=== PATIENT | female | born 1935 | race Caucasian/White ===

== ENCOUNTER 2021-08-26 09:47 | Outpatient (CLI) | payer MEDICARE, OTHER, SELFPAY | END 2021-08-26 09:48 | disposition home or self-care (01) | LOC: WOUND 09:55 | PROVIDERS: Visit Provider Nurse Practitioner Family | DX: I96 Gangrene, not elsewhere classified (principal); S31.000A Unspecified open wound of lower back and pelvis without penetration into retroperitoneum, initial encounter; X58.XXXA Exposure to other specified factors, initial encounter | CPT/HCPCS: 11042; G0463 ==

== ENCOUNTER 2021-09-02 09:38 | Outpatient (CLI) | payer MEDICARE, OTHER, SELFPAY | END 2021-09-02 09:39 | disposition home or self-care (01) | LOC: WOUND 09:40 | PROVIDERS: PCP Registered Nurse; Visit Provider Nurse Practitioner Family | DX: X58.XXXA Exposure to other specified factors, initial encounter; S31.020A Laceration with foreign body of lower back and pelvis without penetration into retroperitoneum, initial encounter | CPT/HCPCS: 11042 ==

== ENCOUNTER 2021-09-09 13:05 | Outpatient (CLI) | payer MEDICARE, OTHER, SELFPAY | END 2021-09-09 13:06 | disposition home or self-care (01) | LOC: WOUND 13:06 | PROVIDERS: PCP Registered Nurse; Visit Provider Nurse Practitioner Family | DX: X58.XXXA Exposure to other specified factors, initial encounter; S31.020A Laceration with foreign body of lower back and pelvis without penetration into retroperitoneum, initial encounter | CPT/HCPCS: 11042 ==

== ENCOUNTER → 2021-09-16 08:24 | Outpatient (BNVA) | payer MEDICARE, OTHER, SELFPAY | PROVIDERS: PCP Registered Nurse; Visit Provider Internal Medicine | DX: M06.9 Rheumatoid arthritis, unspecified (principal); M41.20 Other idiopathic scoliosis, site unspecified; M81.0 Age-related osteoporosis without current pathological fracture; Z11.59 Encounter for screening for other viral diseases; Z85.828 Personal history of other malignant neoplasm of skin | CPT/HCPCS: 99204 ==

== ENCOUNTER 2021-09-16 10:11 | Outpatient (CLI) | payer MEDICARE, OTHER, SELFPAY | END 2021-09-16 10:12 | disposition home or self-care (01) | LOC: WOUND 10:12 | PROVIDERS: PCP Registered Nurse; Visit Provider Emergency Medicine | DX: I96 Gangrene, not elsewhere classified (principal); S31.000A Unspecified open wound of lower back and pelvis without penetration into retroperitoneum, initial encounter; W19.XXXA Unspecified fall, initial encounter | CPT/HCPCS: 11042 ==

== ENCOUNTER → 2021-09-22 11:24 | Outpatient (BNVA) | payer MEDICARE, OTHER, SELFPAY | PROVIDERS: PCP Registered Nurse; Visit Provider Social Worker | DX: F43.12 Post-traumatic stress disorder, chronic (principal) | CPT/HCPCS: 90834 ==

== ENCOUNTER 2021-09-22 13:24 | Outpatient (CLI) | payer MEDICARE, OTHER, SELFPAY ==
[2021-09-22 14:05] LABS: Basophils % 0.4 %; Eosinophils # 0.3 10^3/uL (0.0-0.8); Eosinophils % 2.8 %; Hematocrit 37.4 % (37.0-47.0); Hemoglobin 11.7 g/dL (11.5-15.3); Lymphocytes # 3.3 10^3/uL (0.8-4.8); Lymphocytes % 37.3 %; Mean Corpuscular HGB Conc 31.3 g/dL (30.0-36.0); Mean Corpuscular Hemoglobin 32.4 pg (28.0-34.0); Mean Corpuscular Volume 103.6 fl (81-99); Mean Platelet Volume 9.8 fL (7.4-10.4); Monocytes # 0.4 10^3/uL (0.2-0.9); Monocytes % 3.9 %; Neutrophils # 4.92 10^3/uL (1.8-7.7); Neutrophils % 55.3 %; Nucleated Red Blood Cells % 0 %; Platelet Count 291 10^3/cmm (130-400); Red Blood Count 3.61 10^6/uL (4.1-5.3); Red Cell Distribution Width 16.4 % (12.1-15.1); White Blood Count 8.9 10^3/uL (4.0-10.0)
[2021-09-22 14:28] LABS: Alanine Aminotransferase 12 U/L (0-33); Albumin Level 4.1 g/dL (3.5-5.2); Alkaline Phosphatase 67 IU/L (35-105); Anion Gap 18.9 (5-19); Aspartate Amino Transferase 18 U/L (0-32); Blood Urea Nitrogen 22 mg/dL (8-23); C Reactive Protein 1.1 mg/L (0.0-4.9); Calcium 8.6 mg/dL (8.5-10.5); Carbon Dioxide 20 mmol/L (22-29); Chloride 102 mmol/L (98-107); Globulin 3.4 g/dL (1.3-4.6); Glucose 90 mg/dL (65-115); Osmolality Calculated 287 mOsm/kg (285-295); Potassium 3.9 mmol/L (3.5-5.1); Sodium 137 mmol/L (136-145); Total Bilirubin 0.4 mg/dL (0.15-1.2); Total Protein 7.5 g/dL (6.6-8.7)
[2021-09-22 14:44] LABS: 25 Hydroxy Vitamin D 60 ng/mL (30-100)
[2021-09-22 14:58] LABS: Hepatitis B Core AB, Total Non-Reactive (Nonreactive); Hepatitis B Surface Antigen Non-Reactive (Nonreactive); Hepatitis C Virus Antibody Non-Reactive (Nonreactive)
[2021-09-22 15:21] LABS: Erythrocyte Sedimentation Rate 41 mm/hr (0-15)
[2021-09-25 11:13] LABS: Quantiferon Mitogen 8.48 IU/mL; Quantiferon Nil 0.58 IU/mL; Quantiferon Plus TB1 <0.00 IU/mL; Quantiferon Plus TB2 0.01 IU/mL; Quantiferon TB Gold NEGATIVE (NEGATIVE)
== END 2021-09-22 13:25 | disposition home or self-care (01) ==
LOC: LAB 13:30
PROVIDERS: PCP Registered Nurse; Visit Provider Internal Medicine
DX: M06.9 Rheumatoid arthritis, unspecified (principal); Z79.899 Other long term (current) drug therapy; Z11.1 Encounter for screening for respiratory tuberculosis; Z11.59 Encounter for screening for other viral diseases
CPT/HCPCS: 36415; 80053; 82306; 85025; 85651; 86140; 86480; 86704; 86803; 87340

== ENCOUNTER 2021-09-30 08:50 | Outpatient (CLI) | payer MEDICARE, OTHER, SELFPAY | END 2021-09-30 08:51 | disposition home or self-care (01) | LOC: WOUND 08:51 | PROVIDERS: PCP Registered Nurse; Visit Provider Emergency Medicine | DX: I96 Gangrene, not elsewhere classified (principal); S31.020A Laceration with foreign body of lower back and pelvis without penetration into retroperitoneum, initial encounter; X58.XXXA Exposure to other specified factors, initial encounter | CPT/HCPCS: 11042 ==

== ENCOUNTER 2021-10-14 08:48 | Outpatient (CLI) | payer MEDICARE, OTHER, SELFPAY | END 2021-10-14 08:49 | disposition home or self-care (01) | LOC: WOUND 08:49 | PROVIDERS: PCP Registered Nurse; Visit Provider Emergency Medicine | DX: M06.9 Rheumatoid arthritis, unspecified (principal); M47.816 Spondylosis without myelopathy or radiculopathy, lumbar region; Z79.899 Other long term (current) drug therapy; I96 Gangrene, not elsewhere classified; L89.893 Pressure ulcer of other site, stage 3 | CPT/HCPCS: 11042; 99214 ==

== ENCOUNTER → 2021-11-06 14:31 | Outpatient (BNVA) | payer MEDICARE, OTHER, SELFPAY | PROVIDERS: PCP Registered Nurse; Visit Provider Registered Nurse | DX: I48.91 Unspecified atrial fibrillation (principal); M81.0 Age-related osteoporosis without current pathological fracture; M06.9 Rheumatoid arthritis, unspecified; I48.11 Longstanding persistent atrial fibrillation | CPT/HCPCS: 80053; 82306; 82607; 83735; 84100; 84443; 84550; 85025; 85651; 86140 ==

== ENCOUNTER → 2021-11-10 10:18 | Outpatient (BNVA) | payer MEDICARE, OTHER, SELFPAY | PROVIDERS: PCP Registered Nurse; Visit Provider Internal Medicine Cardiovascular Disease | DX: I48.11 Longstanding persistent atrial fibrillation (principal); K21.9 Gastro-esophageal reflux disease without esophagitis; E78.5 Hyperlipidemia, unspecified; I10 Essential (primary) hypertension; I25.10 Atherosclerotic heart disease of native coronary artery without angina pectoris | CPT/HCPCS: 77077; 99204 ==

== ENCOUNTER → 2021-11-20 10:29 | Outpatient (BNVA) | payer MEDICARE, OTHER, SELFPAY | PROVIDERS: PCP Registered Nurse; Visit Provider Orthopaedic Surgery | DX: M54.6 Pain in thoracic spine (principal); M47.894 Other spondylosis, thoracic region; M81.0 Age-related osteoporosis without current pathological fracture | CPT/HCPCS: 72072; 72110 ==

== ENCOUNTER → 2021-12-10 10:40 | Outpatient (BNVA) | payer MEDICARE, OTHER, SELFPAY | PROVIDERS: PCP Registered Nurse; Visit Provider Otolaryngology | DX: J32.0 Chronic maxillary sinusitis (principal); R04.0 Epistaxis; R09.81 Nasal congestion; Z79.891 Long term (current) use of opiate analgesic | CPT/HCPCS: 99204 ==

== ENCOUNTER → 2021-12-22 10:13 | Outpatient (BNVA) | payer MEDICARE, OTHER, SELFPAY | PROVIDERS: PCP Registered Nurse; Referring Provider Registered Nurse; Visit Provider Anesthesiology Pain Medicine | DX: M47.816 Spondylosis without myelopathy or radiculopathy, lumbar region (principal); M25.512 Pain in left shoulder; M25.511 Pain in right shoulder; M19.019 Primary osteoarthritis, unspecified shoulder; M41.20 Other idiopathic scoliosis, site unspecified; M06.9 Rheumatoid arthritis, unspecified; M81.0 Age-related osteoporosis without current pathological fracture; Z79.891 Long term (current) use of opiate analgesic | CPT/HCPCS: 20610; 99205; J1030; J3490 ==

== ENCOUNTER → 2022-01-09 08:14 | Outpatient (BNVA) | payer MEDICARE, OTHER, SELFPAY | PROVIDERS: PCP Registered Nurse; Visit Provider Otolaryngology | DX: R04.0 Epistaxis (principal); R09.81 Nasal congestion; J32.0 Chronic maxillary sinusitis; H02.831 Dermatochalasis of right upper eyelid | CPT/HCPCS: 99213 ==

== ENCOUNTER → 2022-01-12 12:46 | Outpatient (BNVA) | payer MEDICARE, OTHER, SELFPAY | PROVIDERS: PCP Registered Nurse; Visit Provider Internal Medicine Cardiovascular Disease | DX: M06.9 Rheumatoid arthritis, unspecified (principal); Z79.899 Other long term (current) drug therapy; M81.0 Age-related osteoporosis without current pathological fracture; T84.84XA Pain due to internal orthopedic prosthetic devices, implants and grafts, initial encounter; Y83.8 Other surgical procedures as the cause of abnormal reaction of the patient, or of later complication, without mention of misadventure at the time of the procedure; M20.42 Other hammer toe(s) (acquired), left foot; M21.612 Bunion of left foot; I48.11 Longstanding persistent atrial fibrillation; I25.10 Atherosclerotic heart disease of native coronary artery without angina pectoris; I10 Essential (primary) hypertension; E78.5 Hyperlipidemia, unspecified; K21.9 Gastro-esophageal reflux disease without esophagitis | CPT/HCPCS: 99214; 99215 ==

== ENCOUNTER → 2022-01-22 13:43 | Outpatient (BNVA) | payer MEDICARE, OTHER, SELFPAY | PROVIDERS: PCP Registered Nurse; Visit Provider Anesthesiology Pain Medicine | DX: M47.816 Spondylosis without myelopathy or radiculopathy, lumbar region (principal); M06.9 Rheumatoid arthritis, unspecified; M81.0 Age-related osteoporosis without current pathological fracture; M41.20 Other idiopathic scoliosis, site unspecified; M79.604 Pain in right leg; M79.605 Pain in left leg; M25.511 Pain in right shoulder; M25.512 Pain in left shoulder; Z79.891 Long term (current) use of opiate analgesic | CPT/HCPCS: 99214 ==

== ENCOUNTER → 2022-02-11 09:23 | Outpatient (BNVA) | payer MEDICARE, OTHER, SELFPAY | PROVIDERS: PCP Registered Nurse; Visit Provider Internal Medicine | DX: M06.9 Rheumatoid arthritis, unspecified (principal) | CPT/HCPCS: 80053; 85025 ==

== ENCOUNTER → 2022-02-19 10:06 | Outpatient (BNVA) | payer MEDICARE, OTHER, SELFPAY | PROVIDERS: PCP Registered Nurse; Visit Provider Anesthesiology Pain Medicine | DX: M19.012 Primary osteoarthritis, left shoulder (principal); M47.816 Spondylosis without myelopathy or radiculopathy, lumbar region; M06.9 Rheumatoid arthritis, unspecified; M81.0 Age-related osteoporosis without current pathological fracture; M41.20 Other idiopathic scoliosis, site unspecified; Z79.891 Long term (current) use of opiate analgesic | CPT/HCPCS: 20610; 99214; J1030 ==

== ENCOUNTER 2022-02-27 07:38 | Day surgery (SDC) | payer MEDICARE, OTHER, SELFPAY ==
--- NOTE | 2022-02-27 06:05 | W.PM.OPSUD ---
Surgery/Procedure H&P Update DATE OF PROCEDURE: February 27, 2022 DATE H&P PERFORMED: 02/27/22 CHANGES TO PREVIOUS DOCUMENTATION: None PRIMARY INDICATION FOR PROCEDURE: Painful retained hardware right foot PLANNED PROCEDURE: Operation Date: 02/27/22 09:20 Proposed Procedures p Deep hardware removal right foot 50093,T84.84XA(Right) - Ventura Osullivan DPM
--- NOTE | 2022-02-27 06:06 | P.HP_ITS ---
Providers/Chief Complaint Primary Care Provider: PARISH Medel History of Present Illness 86 year old female patient presenting to clinic for evaluation of bilateral foot pain.? Patient states that she has complaints about both feet.? She states that in the right foot she has old hardware from a past surgery that causes her pain.? In her left foot her third toe draws up and causes a sore on top.? Patient states that her discomfort has caused her issues for years.? Patient also has complaints of thick elongated nails that are hard for her to trim herself due to back pain.? She and her sister temperature changes to her feet, decreased sensation, numbness, tingling and [id number]-astpjon.? Patient denies any subjective nausea, vomiting, fever, chills, shortness of breath or chest pain. Review of Systems General: Reports: 10 or more systems reviewed and unremarkable except in HPI and below Const: Denies: fever(s) or chills Eyes: Denies: change in vision Card: Denies: chest pain or palpitations Resp: Denies: dyspnea or productive cough GI: Denies: abdominal pain, nausea or vomiting : Denies: flank pain Musc: Reports: extremity pain, joint pain, joint stiffness, limited range of motion and deformity Skin/Breast: Reports: skin tenderness; Denies: rash Neuro: Reports: difficulty walking; Denies: numbness in extremities, sensory changes or frequent falls Psych: Denies: suicidal ideation Drew/Lymph: Denies: easy bruising Medications/Allergies Home Medications Medication Instructions Recorded Confirmed Last Taken Type ascorbic acid (vitamin C) 500 mg 500 mg PO DAILY 09/01/21 02/26/22 Unknown History capsule calcium carbonate 600 mg calcium 600 mg PO DAILY 09/01/21 02/26/22 Unknown History (1,500 mg) tablet cholecalciferol (vitamin D3) 50 50 mcg PO DAILY 09/01/21 02/26/22 Unknown History mcg (2,000 unit) capsule krill 1,000 mg-omega-3 170 mg-dha 1 cap PO BID 09/01/21 02/26/22 Unknown History 50 mg-epa 80 vy-cdniiv-qhiux capsule (krill oil) levothyroxine 88 mcg capsule 88 mcg PO DAILY 09/01/21 02/26/22 Unknown History acetaminophen 325 mg capsule 650 mg PO Q8H PRN cap 09/16/21 02/26/22 Unknown History potassium gluconate 595 mg (99 mg) 595 mg PO DAILY 09/16/21 02/26/22 Unknown History tablet apixaban 2.5 mg tablet (Eliquis) 2.5 mg PO BID #180 tab 11/10/21 02/26/22 Unknown Rx furosemide 20 mg tablet 10 mg PO QAM #45 tab 11/10/21 02/26/22 Unknown Rx prednisone 5 mg tablet 5 mg PO DAILY PRN 11/10/21 02/26/22 Unknown History sotalol 80 mg tablet 40 mg PO BID #90 tab 11/10/21 02/26/22 Unknown Rx Back brace #1 ea 11/20/21 02/19/22 Unknown Rx omeprazole 40 mg capsule,delayed 40 mg PO DAILY #90 cap 12/16/21 02/26/22 Unknown Rx release tramadol 50 mg tablet 50 mg PO BID PRN #60 tab 12/22/21 02/26/22 Unknown Rx methenamine hippurate 1 gram tablet 1 g PO BID #180 tab 01/06/22 02/26/22 Unknown Rx methotrexate sodium 2.5 mg tablet 10 mg PO .weekly tab 01/12/22 02/26/22 Unknown History ammonium lactate 12 % topical cream 1 applic TOPICAL DAILY #385 g 01/28/22 02/26/22 Unknown Rx evolocumab 140 mg/mL subcutaneous 140 mg SUBCUT Q14D #2 ml 02/09/22 02/26/22 Unknown Rx pen injector (Felicita Antonio) nitroglycerin 400 mcg/spray 1 spray TRANSLINGUAL Q5M PRN #4.9 g 02/09/22 02/26/22 Unknown Rx translingual folic acid 1 mg tablet 1 mg PO BID 02/26/22 02/26/22 Unknown History vitamins A,C,Y-kgid-uflxow 14,320 1 cap PO BID 02/26/22 02/26/22 Unknown History unit-226 mg-200 unit capsule (PreserVision AREDS) Allergies Allergy/AdvReac Type Severity Reaction Status Date / Time lactose Allergy Unknown Verified 02/26/22 17:16 Sulfa (Sulfonamide Allergy ADR-Vomitin Verified 02/26/22 17:16 Antibiotics) g PFSH PFSH: Medical History Afib 2020 Angina pectoris Anxiety and depression CAD (coronary artery disease) GERD (gastroesophageal reflux disease) Hyperlipidemia Hypertension Hypothyroidism Menopause Psychiatric care Recurrent urinary tract infection Rheumatoid arthritis Reported hx by pt Scoliosis Scoliosis (and kyphoscoliosis), idiopathic Surgical History History of hand surgery History of hysterectomy History of intestinal surgery History of open heart surgery 2000 History of tonsillectomy Hx of foot surgery right foot Family History Mother Diabetes Other Parkinson disease Social History Smoking and tobacco status: never smoked Alcohol intake: never Adopted: No Caregiver/support person: No Lives independently: No Household members: family service: No History of recent travel: No Sexually active: No Current gender identity: Female Dietary Habits: Caffeine: Yes Vital Signs Weight: Weight last 48 hrs Weight 120 lb Physical Exam Narrative: EXAM NARRATIVE: Patient is alert and oriented ?3 and in no acute distress.? The following is a focused bilateral lower extremity exam. VASCULAR: Dorsalis pedis diminished bilaterally, posterior tibial arteries diminished.? Capillary refill time less than 5 seconds to the distal hallux bilaterally. Calf is supple and nontender proximally and distally.? Decreased pedal hair growth bilaterally.? No pedal edema.? Dependent rubor to the bilateral forefoot. NEUROLOGICAL: Protective sensation intact 6/10 sites, tested with [place] monofilament to bilateral feet. DERMATOLOGICAL: Thin, atrophic, shiny skin to the lower extremity integument.? Absent toenail to first and second toes left and right.? Remaining toenails 3 through 5 bilaterally are elongated, thickened and discolored with subungual debris.? Cicatrix to the right foot. MUSCULOSKELETAL: Prominent hardware at the first metatarsal right foot, there is tenderness to palpation at prominent hardware of the right foot noted.? Dystrophic toenails are also painful 3 through 5 bilaterally.? Pes planus foot type bilaterally. CARDIOVASCULAR: S1, S2, normal rate, normal rhythm. Dorsalis pedis and posterior tibial arteries palpable. LUNGS: Clear to auscltation, no use of acessory muscles, no crackles or wheezes. A&P Assessment and plan (1) Right foot pain: Patient has painful retained orthopedic hardware in the right foot, screws are backing out and tenting the skin, this is a potential hazard for wound formation, makes it difficult for her to wear shoes.? She is requesting bob kilo.? Patient will be evaluated by cardiology prior to surgical intervention. Was seen by Dr. Grace STARKS 01/12/2022, is able to proceed with outpatient surgery with acceptable cardiovascular risk. Patient requesting deep hardware removal right foot. Requesting removal of 2 prominent screws that are causing sores and pain. Risks include pain, bleeding, numbness, infection, failure to extract hardware, hardware fragmentation and need for further surgical intervention. Patient is agreeable wishes to proceed. Will be done outpatient on 02/27/2022, MAC anesthesia, duration of procedure 30 minutes. Patient to stay on the rney. Status: Acute (2) Painful orthopaedic hardware: Status: Acute Plan Patient has painful retained orthopedic hardware in the right foot, screws are backing out and tenting the skin, this is a potential hazard for wound formation, makes it difficult for her to wear shoes.? She is requesting removal.? Will require cardiac clearance prior to any surgical planning. Coding Level of Care Code Acute Machine Shop Lead Man for Chg Fwd Diagnoses Right foot pain M79.671 Painful orthopaedic hardware T84.84XA
[2022-02-27 07:54] VITALS: BP 176/78; PULSE 71; RESP 16; TEMP 36.2; O2SAT 99
[2022-02-27] MEDS: sodium chloride 0.9% 1,000 ML 30 ML IV (08:13)
--- NOTE | 2022-02-27 08:49 | ANES.PROC ---
Anesthesia Procedures Procedure/Date: 02/27/22 Other Information: After sterile prep and using real time US guidance for vessel selection a left 22 g PIV was inserted with real time visualization of needle entry and real time visualization of catheter advancement. Tolerated well. 1 attempt.
--- NOTE | 2022-02-27 08:50 | ANES.PREANE2 ---
Pre-Anesthetic Assessment Height/Weight: Height 1.65 m Weight 54.431 kg Temp Pulse Resp BP Pulse Ox 97.2 F L 71 16 176/78 99 02/27/22 07:54 02/27/22 07:54 02/27/22 07:54 02/27/22 07:54 02/27/22 07:54 Preop Diagnosis: Painful right hand hardware right foot Operation Date: 02/27/22 09:20 Proposed Procedures p Deep hardware removal right foot [id number],T84.84XA(Right) - Ventura Osullivan DPM Familial anesthetic complications: none Was Beta Claire taken within 24 hours: Yes Was Clonidine taken within 24 hours: N/A Last intake: Intake Last Liquid Date 02/26/22 Last Liquid Time 17:00 Last Solid Date 02/26/22 Last Solid Time 17:00 Social No alcohol and No tobacco Exam alert, oriented x 3 and clear to auscultation bilaterally irregular rhythm, normal rate Airway Submandibular: within normal limits Cervical ROM: within normal limits Mallampati: Class II Comments: Comments: Poor dentition Pulmonary Exertional Dyspnea and Shortness of Breath CV/HEM Atrial Fibrillation, Anemia, Coronary Artery Disease, Hypertension and Peripheral Vascular Disease 3 cardiac stents S/P open heart per patient 1 vessel bypass None reported GI Gastroesophageal Reflux Disease Metabolic Thyroid Disease Musc/skel Lower Back Pain, Osteoarthritis/DJD and Rheumatoid Arthritis Neuropsych Anxiety and Depression Anesthetic Plan ASA status: 3 Anesthesia: Anesthesia Evaluation and MAC Other: I discussed with the patient risks, goals, and benefits of MAC and general anesthesia. We discussed spectrum of MAC anesthesia including conversion to general as well as possibility of recall of intraoperative stimuli including discomfort/pain. Patient agrees to proceed with MAC. Risk of > 500 ml blood loss (7ml/kg in children): No Medications/Allergies Home Medications Medication Instructions Recorded Confirmed Last Taken Type ascorbic acid (vitamin C) 500 mg 500 mg PO DAILY 09/01/21 02/27/22 02/26/22 History capsule calcium carbonate 600 mg calcium 600 mg PO DAILY 09/01/21 02/27/22 02/26/22 History (1,500 mg) tablet cholecalciferol (vitamin D3) 50 50 mcg PO DAILY 09/01/21 02/27/22 02/26/22 History mcg (2,000 unit) capsule krill 1,000 mg-omega-3 170 mg-dha 1 cap PO BID 09/01/21 02/27/22 02/26/22 History 50 mg-epa 80 ru-daxuur-fbpzg capsule (krill oil) levothyroxine 88 mcg capsule 88 mcg PO DAILY 09/01/21 02/27/22 02/27/22 History acetaminophen 325 mg capsule 650 mg PO Q8H PRN cap 09/16/21 02/27/22 02/26/22 History potassium gluconate 595 mg (99 mg) 595 mg PO DAILY 09/16/21 02/27/22 02/26/22 History tablet apixaban 2.5 mg tablet (Eliquis) 2.5 mg PO BID #180 tab 11/10/21 02/27/22 02/26/22 Rx furosemide 20 mg tablet 10 mg PO QAM #45 tab 11/10/21 02/27/22 02/26/22 Rx prednisone 5 mg tablet 5 mg PO DAILY PRN 11/10/21 02/27/22 02/26/22 History sotalol 80 mg tablet 40 mg PO BID #90 tab 11/10/21 02/27/22 02/27/22 Rx Back brace #1 ea 11/20/21 02/27/22 02/26/22 Rx omeprazole 40 mg capsule,delayed 40 mg PO DAILY #90 cap 12/16/21 02/27/22 02/27/22 Rx release tramadol 50 mg tablet 50 mg PO BID PRN #60 tab 12/22/21 02/27/22 02/26/22 Rx methenamine hippurate 1 gram tablet 1 g PO BID #180 tab 01/06/22 02/27/22 02/26/22 Rx methotrexate sodium 2.5 mg tablet 10 mg PO .weekly tab 01/12/22 02/27/22 02/26/22 History ammonium lactate 12 % topical cream 1 applic TOPICAL DAILY #385 g 01/28/22 02/27/22 02/26/22 Rx evolocumab 140 mg/mL subcutaneous 140 mg SUBCUT Q14D #2 ml 02/09/22 02/27/22 02/26/22 Rx pen injector (Felicita Antonio) nitroglycerin 400 mcg/spray 1 spray TRANSLINGUAL Q5M PRN #4.9 g 02/09/22 02/27/22 02/26/22 Rx translingual folic acid 1 mg tablet 1 mg PO BID 02/26/22 02/27/22 02/26/22 History vitamins A,C,E-qmjn-gfqcig 14,320 1 cap PO BID 02/26/22 02/27/22 02/26/22 History unit-226 mg-200 unit capsule (PreserVision AREDS) hydrocodone 5 mg-acetaminophen 325 1 tab PO Q6H PRN 7 Days #20 tab 02/27/22 Unknown Rx mg tablet Allergies Allergy/AdvReac Type Severity Reaction Status Date / Time lactose Allergy Unknown Verified 02/27/22 07:59 Sulfa (Sulfonamide Allergy ADR-Vomitin Verified 02/27/22 07:59 Antibiotics) g Current Medications Generic Name Dose Route Start Last Admin Trade Name Freq PRN Reason Stop Dose Admin Sodium Chloride 1,000 mls @ 30 mls/hr 02/27/22 08:00 02/27/22 08:13 Sodium Chloride 0.9% IV 02/28/22 07:59 30 mls/hr .Q24H INOCENCIA Administration PFSH Anesthesia Medical History Afib 2020 Angina pectoris Anxiety and depression CAD (coronary artery disease) GERD (gastroesophageal reflux disease) Hyperlipidemia Hypertension Hypothyroidism Menopause Psychiatric care Recurrent urinary tract infection Rheumatoid arthritis Reported hx by pt Scoliosis Scoliosis (and kyphoscoliosis), idiopathic Surgical History History of hand surgery History of hysterectomy History of intestinal surgery History of open heart surgery 2000 History of tonsillectomy Hx of foot surgery right foot Family History Mother Diabetes Other Parkinson disease Social History Smoking and tobacco status: never smoked Alcohol intake: never Adopted: No Caregiver/support person: No Lives independently: No Household members: family service: No History of recent travel: No Sexually active: No Current gender identity: Female Data Anesthesia Cardiac Studies: No Data to Display
--- NOTE | 2022-02-27 09:12 | W.PM.OPSUD ---
Surgery/Procedure H&P Update DATE OF PROCEDURE: February 27, 2022 DATE H&P PERFORMED: 01/12/22 CHANGES TO PREVIOUS DOCUMENTATION: none PREOP DIAGNOSIS: Painful right hand hardware right foot PLANNED PROCEDURE: Operation Date: 02/27/22 09:20 Proposed Procedures p Deep hardware removal right foot [id number],T84.84XA(Right) - Ventura Osullivan DPM
[2022-02-27] MEDS: lidocaine 2% INJ 20 mL 10 ML INJECTION (09:33)
--- NOTE | 2022-02-27 09:44 | P.OP_ITS ---
Operative Report Date of procedure: February 27, 2022 Pre-op diagnosis: Painful right hand hardware right foot Post-op diagnosis: Same Post-op findings: None Procedure done: Deep hardware removal right foot. CPT code 46918 Implants: 4-0 Vicryl, 4-0 nylon Specimens removed/disposition: 1 plate 3 screws Pathology: None Surgeon: Ventura Osullivan D.P.M. Pharmacy Operations Coordinator: Kerry Estimated blood loss: 5 16 IV fluids: 0 Urine output: 0 Complications: None Findings: None Brief History: Patient has painful retained orthopedic hardware in the right foot, screws are backing out and tenting the skin, this is a potential hazard for wound formation, makes it difficult for her to wear shoes.? She is requesting removal.? Patient will be evaluated by cardiology prior to surgical int ervention.? Was seen by Dr. Grace STARKS 01/12/2022, is able to proceed with outpatient surgery with acceptable cardiovascular risk. Procedure: Under mild sedation the patient was brought to the operating room and remained on the gurney in supine position. A timeout was performed. Anesthesia was then administered by the anesthesia service. Ankle block to the right lower extremity performed utilizing one-to-one mixture of 1% lidocaine and 0.25% Marcaine plain. Well-padded pneumatic tourniquet applied high calf to the right lower extremity. The right lower extremity was then scrubbed, prepped and draped utilizing normal aseptic technique. Right foot was exanguinated with an Esmarch bandage and the tourniquet inflated to 250 mmHg. Attention was directed to the dorsal medial aspect of the right forefoot where 2 prominent screws were tenting the skin these were able to be visualized directly and directly over the screws a linear longitudinal incision was made, 2 screws were backed out and passed from operative field in total, these were the screws that were most distal within the plate at the tarsometatarsal joint arthrodesis site, and the proximal screw is a #3 screw was also removed and passed from prefilled and a plate removed. All rough edges were smoothed incision was flushed with saline solution. The remaining 2 screws at the first metatarsal phalangeal joint arthrodesis site were not proud intraoperatively. These were well-placed and did not show signs of prominence and decided to be left intact. The incision was flushed with saline solution and closed in a layered fashion. 4-0 Vicryl subcutaneous tissue and periosteum. Skin closed with 4-0 nylon. Incision was dressed with Adaptic, sterile 4 x 4, Kerlix and Steven wrap. Postop shoe was applied to the right foot. Tourniquet was then deflated and a prompt hyperemic response is noted to the distal digits of the right foot. Patient tolerated the procedure and anesthesia well and was transferred to the PACU with vital signs stable and vascular status intact. Following a period of postoperative monitoring she will be discharged home may be weightbearing as t marty. Has follow-up appointment scheduled for Wednesday next week for her first dressing change this will be a nurse visit.
[2022-02-27 09:46] VITALS: BP 127/56; PULSE 66; RESP 16; TEMP 36.4; O2SAT 99
[2022-02-27 09:50] VITALS: BP 129/61; PULSE 62; RESP 16; TEMP 36.4; O2SAT 96
[2022-02-27 10:01] VITALS: BP 152/71; PULSE 64; RESP 16; TEMP 36.6; O2SAT 98
[2022-02-27 10:23] VITALS: BP 140/81; PULSE 63; RESP 16; O2SAT 98
--- NOTE | 2022-02-27 12:00 | ANE.PACU2 ---
Inpatient post-anesthesia follow up: Airway intact: Yes Vital signs: Temperature 97.8 F Pulse Rate 63 Respiratory Rate 16 Blood Pressure 140/81 Pulse Oximetry 98 Oxygen Delivery Me thod Room Air Oxygen Flow Rate Fraction of Inspir ed Oxygen Hydration adequate: Yes Nausea and vomiting: No Pain level: 1 Mental status: Baseline
== END 2022-02-27 11:00 | disposition home or self-care (01) ==
PROVIDERS: PCP Registered Nurse; Visit Provider Podiatrist Foot & Ankle Surgery
PROC: (CPT 20680; principal; 2022-02-27 09:20)
DX: T84.84XA Pain due to internal orthopedic prosthetic devices, implants and grafts, initial encounter (principal); I48.91 Unspecified atrial fibrillation; I25.10 Atherosclerotic heart disease of native coronary artery without angina pectoris; I10 Essential (primary) hypertension; Z95.5 Presence of coronary angioplasty implant and graft; I73.9 Peripheral vascular disease, unspecified; K21.9 Gastro-esophageal reflux disease without esophagitis; M06.9 Rheumatoid arthritis, unspecified; F41.9 Anxiety disorder, unspecified; F32.9 Major depressive disorder, single episode, unspecified; E78.5 Hyperlipidemia, unspecified; E03.9 Hypothyroidism, unspecified
CPT/HCPCS: 20680; J2704; J3010; J3490; J7030

== ENCOUNTER → 2022-03-12 14:17 | Outpatient (BNVA) | payer MEDICARE, OTHER, SELFPAY | PROVIDERS: PCP Registered Nurse; Visit Provider Podiatrist Foot & Ankle Surgery | DX: Z98.890 Other specified postprocedural states (principal) | CPT/HCPCS: 99024 ==

== ENCOUNTER 2022-04-03 10:40 | Outpatient (CLI) | payer MEDICARE, OTHER, SELFPAY ==
--- NOTE | 2022-04-03 11:00 | MR_ITS ---
WS: [id number] MRI LUMBAR SPINE NONCONTRAST TECHNIQUE: Sagittal T1, T2 and STIR imaging. Axial T1 and T2 imaging. CLINICAL INFORMATION: M47.816 - Spondylosis without myelopathy or radiculopathy... COMPARISON: None. FINDINGS: Moderate spondylitic changes cervical spine with disc osteophyte complexes and slight contact of the cervical cord. Sternotomy. Thoracolumbar scoliosis. Lumbar scoliosis convex LEFT. No acute compression fractures. Slight anterol isthesis L5 on S1. Slight anterolisthesis T12 on L1 with mild disc bulging. Moderate LEFT foraminal n arrowing. RIGHT foramen is patent. L1-L2: Mild disc bulging with osteophytic ridging. Narrowing of the LEFT subarticular recess. Mild LE FT foraminal narrowing. Moderate facet arthropathy. L2-L3: Disc osteophyte complex with endplate ridging. Impingement on the RIGHT subarticular recess an d traversing RIGHT L3 nerve root. Mild central canal stenosis. Mild facet arthropathy. Mild RIGHT L2- L3 foraminal narrowing. L3-L4: Disc osteophyte complex endplate ridging. Impingement RIGHT subarticular recess and traversing RIGHT L4 nerve root. Mild to moderate RIGHT foraminal narrowing. Mild facet arthropathy. L4-L5: Disc osteophyte complex eccentric to the RIGHT. Mild central canal stenosis. Impingement on th e traversing RIGHT L5 nerve root in the subarticular recess. Moderate to severe RIGHT foraminal narro wing impinges the exiting RIGHT L4 nerve root. L5-S1: Disc osteophyte complex with endplate ridging. Moderate central canal stenosis. Impingement on traversing S1 nerve roots bilaterally. Moderate bilateral foraminal narrowing impinges the exiting L 5 nerve roots LEFT greater than RIGHT. Moderate facet arthropathy at this level. Small LEFT renal cyst measuring 10 mm.Partially evaluated large LEFT adnexal cyst measuring 5.3 x 6.0 cm. Recommend further evaluation with ultrasound. MR/MR lumbar spine wo con* [id number] IMPRESSION: 1. Thoracolumbar scoliosis convex LEFT in the lumbar spine. 2. Moderate central canal stenosis L5-S1 with impingement traversing S1 nerve roots bilaterally. Moderate LEFT foraminal narrowing impinges the exiting LEFT L5 nerve root. Moderate facet arthropathy at this level. 3. Disc osteophyte complex L2-L3 impinges the traversing RIGHT L3 nerve root i n the subarticular recess. Mild RIGHT foraminal narrowing. Moderate facet arthr opathy. Mild central canal stenosis at this level. 4. Disc osteophyte complex L3-L4 impinges the RIGHT subarticular recess and tr aversing right L4 nerve root. Mild to moderate RIGHT L3-L4 foraminal narrowing. 5. Disc osteophyte complex L4-L5 impinges the RIGHT subarticular recess and tr aversing right L5 nerve root with mild central canal stenosis. Moderate to chelsea re RIGHT L4-L5 foraminal narrowing impinges the exiting RIGHT L4 nerve root. 6. Mild disc bulging at T12-L1 with slight anterolisthesis. Mild central canal stenosis with moderate LEFT T12-L1 foraminal narrowing. 7. Partially evaluated large LEFT adnexal cystic lesion measuring 5.3 x 6.0 cm . Recommend further evaluation with ultrasound.
== END 2022-04-03 10:41 | disposition home or self-care (01) ==
PROVIDERS: PCP Registered Nurse; Visit Provider Orthopaedic Surgery
DX: M47.816 Spondylosis without myelopathy or radiculopathy, lumbar region (principal); M41.85 Other forms of scoliosis, thoracolumbar region; M48.07 Spinal stenosis, lumbosacral region; M25.78 Osteophyte, vertebrae; M51.25 Other intervertebral disc displacement, thoracolumbar region
CPT/HCPCS: 72148

== ENCOUNTER → 2022-04-07 10:42 | Outpatient (BNVA) | payer MEDICARE, OTHER, SELFPAY | PROVIDERS: PCP Registered Nurse; Visit Provider Surgery | DX: R15.9 Full incontinence of feces (principal); M25.512 Pain in left shoulder; M41.26 Other idiopathic scoliosis, lumbar region; M51.36 Other intervertebral disc degeneration, lumbar region; M12.812 Other specific arthropathies, not elsewhere classified, left shoulder; M53.3 Sacrococcygeal disorders, not elsewhere classified | CPT/HCPCS: 99203; 99213 ==

== ENCOUNTER → 2022-04-15 13:58 | Outpatient (BNVA) | payer MEDICARE, OTHER, SELFPAY | PROVIDERS: PCP Registered Nurse; Visit Provider Internal Medicine | DX: M21.619 Bunion of unspecified foot (principal); M20.40 Other hammer toe(s) (acquired), unspecified foot; Z98.890 Other specified postprocedural states; M06.9 Rheumatoid arthritis, unspecified; M81.0 Age-related osteoporosis without current pathological fracture | CPT/HCPCS: 99213; 99214 ==

== ENCOUNTER 2022-04-20 11:14 | Outpatient (CLI) | payer MEDICARE, OTHER, SELFPAY ==
--- NOTE | 2022-04-20 11:00 | MR_ITS ---
WS: [id number] MRI LEFT SHOULDER NONCONTRAST TECHNIQUE: Sagittal T2, coronal T1, T2 and proton density imaging. Axial gradient PDE imaging. CLINICAL INFORMATION: pain COMPARISON: None. FINDINGS: Osteoarthritis at the AC joint with marked narrowing of the subacromial space. Subacromial spurring. Small joint effusion. Advanced degenerative arthritis glenohumeral joint with subchondral cystic change. Mild edema in the humerus and glenoid. High-grade complete tears of the supraspinatus and infraspinatus. Associated atr ophy of the muscle bellies. Teres minor appears intact. Tendinopathy with partial intrasubstance tear involving the subscapularis distally. Diminutive tiny b iceps tendon within the bicipital groove. MR/MR shoulder LT con* [id number] IMPRESSION: 1. Advanced degenerative arthritis at the AC joint with loss of the subacromia l space. Advanced degenerative arthritis glenohumeral joint. 2. High-grade complete tears of the supraspinatus and infraspinatus. Teres min or appears intact. Tendinopathy subscapularis partial intrasubstance tear dista lly. 3. Tiny biceps tendon within the bicipital groove. 4. Small joint effusion. 5. Subchondral cystic change involving the humerus and glenoid.
== END 2022-04-20 11:15 | disposition home or self-care (01) ==
PROVIDERS: PCP Registered Nurse; Visit Provider Physician Assistant
DX: M19.012 Primary osteoarthritis, left shoulder (principal); M25.412 Effusion, left shoulder
CPT/HCPCS: 73221; 99213

== ENCOUNTER 2022-05-20 11:32 | Outpatient (CLI) | payer MEDICARE, OTHER, SELFPAY ==
[2022-05-20 12:48] LABS: Albumin Level 4.1 g/dL (3.5-5.2); Calcium 8.6 mg/dL (8.5-10.5)
[2022-05-20 13:03] VITALS: BP 145/71; PULSE 56; RESP 18; TEMP 36.2; O2SAT 99
[2022-05-20 13:04] LABS: 25 Hydroxy Vitamin D 56 ng/mL (30-100)
[2022-05-20] MEDS: denosumab 60 mg SDV SUBCUT (13:08)
[2022-05-20 13:20] VITALS: BP 141/73; PULSE 60; RESP 18; TEMP 36.4; O2SAT 100
== END 2022-05-20 11:33 | disposition home or self-care (01) ==
PROVIDERS: PCP Registered Nurse; Visit Provider Internal Medicine
DX: M81.0 Age-related osteoporosis without current pathological fracture (principal); Z79.899 Other long term (current) drug therapy
CPT/HCPCS: 36415; 82040; 82306; 82310; 82565; 96372; J0897

== ENCOUNTER → 2022-06-18 11:32 | Outpatient (BNVA) | payer MEDICARE, OTHER, SELFPAY | PROVIDERS: PCP Registered Nurse; Visit Provider Physician Assistant | DX: M12.812 Other specific arthropathies, not elsewhere classified, left shoulder (principal); M48.062 Spinal stenosis, lumbar region with neurogenic claudication | CPT/HCPCS: 99213 ==

== ENCOUNTER → 2022-06-24 10:26 | Outpatient (BNVA) | payer MEDICARE, OTHER, SELFPAY | PROVIDERS: PCP Registered Nurse; Visit Provider Orthopaedic Surgery | DX: M75.101 Unspecified rotator cuff tear or rupture of right shoulder, not specified as traumatic (principal) | CPT/HCPCS: 99214 ==

== ENCOUNTER → 2022-07-14 14:30 | Outpatient (BNVA) | payer MEDICARE, OTHER, SELFPAY | PROVIDERS: PCP Registered Nurse; Visit Provider Internal Medicine | DX: I25.10 Atherosclerotic heart disease of native coronary artery without angina pectoris (principal); I10 Essential (primary) hypertension; E78.5 Hyperlipidemia, unspecified; K21.9 Gastro-esophageal reflux disease without esophagitis | CPT/HCPCS: 99213; 99214 ==

== ENCOUNTER → 2022-09-01 10:11 | Outpatient (BNVA) | payer MEDICARE, OTHER, SELFPAY | PROVIDERS: PCP Registered Nurse; Visit Provider Internal Medicine | DX: M06.9 Rheumatoid arthritis, unspecified (principal); M41.20 Other idiopathic scoliosis, site unspecified; M47.816 Spondylosis without myelopathy or radiculopathy, lumbar region; M81.0 Age-related osteoporosis without current pathological fracture; M51.36 Other intervertebral disc degeneration, lumbar region; I48.11 Longstanding persistent atrial fibrillation | CPT/HCPCS: 82306; 82533; 82607; 82728; 83540; 84443; 85025; 85651; 86140 ==

== ENCOUNTER → 2022-10-14 12:58 | Outpatient (BNVA) | payer MEDICARE, OTHER, SELFPAY | PROVIDERS: PCP Registered Nurse; Visit Provider Internal Medicine | DX: L60.8 Other nail disorders (principal); M20.42 Other hammer toe(s) (acquired), left foot; M20.41 Other hammer toe(s) (acquired), right foot; M21.611 Bunion of right foot; L60.3 Nail dystrophy; M21.612 Bunion of left foot; H04.129 Dry eye syndrome of unspecified lacrimal gland | CPT/HCPCS: 99213 ==

== ENCOUNTER → 2022-11-11 13:22 | Outpatient (BNVA) | payer MEDICARE, OTHER, SELFPAY | PROVIDERS: PCP Registered Nurse; Visit Provider Specialist | DX: M12.812 Other specific arthropathies, not elsewhere classified, left shoulder (principal) | CPT/HCPCS: 20610; 73030; 99204; J1100; J2795; J3301 ==

== ENCOUNTER 2022-11-25 11:54 | Oncology outpatient (recurring) (ONCR) | payer MEDICARE, OTHER, SELFPAY ==
[2022-11-25] MEDS: denosumab 60 mg SDV SUBCUT (12:50)
[2022-11-25 12:53] VITALS: BP 150/69; PULSE 73; RESP 16; TEMP 36.4; O2SAT 99
[2022-11-25 12:53] LABS: Basophils % 0.2 %; Eosinophils % 0.2 %; Hematocrit 36.6 % (37.0-47.0); Hemoglobin 11.3 g/dL (11.5-15.3); Lymphocytes # 0.5 10^3/uL (0.8-4.8); Lymphocytes % 4.5 %; Mean Corpuscular HGB Conc 30.9 g/dL (30.0-36.0); Mean Corpuscular Hemoglobin 32.9 pg (28.0-34.0); Mean Corpuscular Volume 106.7 fl (81-99); Mean Platelet Volume 9.8 fL (7.4-10.4); Monocytes # 0.1 10^3/uL (0.2-0.9); Monocytes % 1.3 %; Neutrophils # 9.68 10^3/uL (1.8-7.7); Nucleated Red Blood Cells % 0 %; Platelet Count 197 10^3/cmm (130-400); Red Blood Count 3.43 10^6/uL (4.1-5.3); Red Cell Distribution Width 15.3 % (12.1-15.1); White Blood Count 10.4 10^3/uL (4.0-10.0)
[2022-11-25 13:10] LABS: Alanine Aminotransferase 11 U/L (0-33); Albumin Level 3.6 g/dL (3.5-5.2); Alkaline Phosphatase 43 U/L (35-105); Anion Gap 14.6 (5-19); Aspartate Amino Transferase 17 U/L (0-32); Blood Urea Nitrogen 32 mg/dL (8-23); Calcium 8.2 mg/dL (8.5-10.5); Carbon Dioxide 23 mmol/L (22-29); Chloride 107 mmol/L (98-107); Globulin 2.5 g/dL (1.3-4.6); Glucose 127 mg/dL (65-115); Osmolality Calculated 298 mOsm/kg (285-295); Potassium 4.6 mmol/L (3.5-5.1); Sodium 140 mmol/L (136-145); Total Bilirubin 0.3 mg/dL (0.15-1.2); Total Protein 6.1 g/dL (6.6-8.7)
[2022-11-25 13:46] LABS: Erythrocyte Sedimentation Rate 5 mm/hr (0-15)
== END 2022-12-04 23:59 | disposition home or self-care (01) ==
LOC: ONCMED 11:56
PROVIDERS: PCP Registered Nurse; Visit Provider Internal Medicine
DX: M06.9 Rheumatoid arthritis, unspecified (principal); M81.0 Age-related osteoporosis without current pathological fracture; M75.101 Unspecified rotator cuff tear or rupture of right shoulder, not specified as traumatic; M48.062 Spinal stenosis, lumbar region with neurogenic claudication; M53.3 Sacrococcygeal disorders, not elsewhere classified; M21.619 Bunion of unspecified foot; Z79.899 Other long term (current) drug therapy
CPT/HCPCS: 36415; 80053; 85025; 85651; 86140; 96372; J0897

== ENCOUNTER → 2022-11-25 13:01 | Outpatient (BNVA) | payer MEDICARE, OTHER, SELFPAY | PROVIDERS: PCP Registered Nurse; Visit Provider Dermatology | DX: D04.61 Carcinoma in situ of skin of right upper limb, including shoulder (principal) | CPT/HCPCS: 88305 ==

== ENCOUNTER → 2023-01-07 09:58 | Outpatient (BNVA) | payer MEDICARE, OTHER, SELFPAY | PROVIDERS: PCP Registered Nurse; Visit Provider Podiatrist Foot & Ankle Surgery | DX: L60.8 Other nail disorders (principal); L60.3 Nail dystrophy; M20.42 Other hammer toe(s) (acquired), left foot; M20.41 Other hammer toe(s) (acquired), right foot; M21.611 Bunion of right foot; M21.612 Bunion of left foot | CPT/HCPCS: 99213 ==

== ENCOUNTER → 2023-01-27 10:53 | Outpatient (BNVA) | payer MEDICARE, OTHER, SELFPAY | PROVIDERS: PCP Registered Nurse; Visit Provider Internal Medicine | DX: M81.0 Age-related osteoporosis without current pathological fracture (principal); M51.36 Other intervertebral disc degeneration, lumbar region; M06.9 Rheumatoid arthritis, unspecified | CPT/HCPCS: 99214 ==

== ENCOUNTER → 2023-01-27 11:40 | Outpatient (BNVA) | payer MEDICARE, OTHER, SELFPAY | PROVIDERS: PCP Registered Nurse; Visit Provider Internal Medicine Cardiovascular Disease | DX: I48.11 Longstanding persistent atrial fibrillation (principal); I25.10 Atherosclerotic heart disease of native coronary artery without angina pectoris; I10 Essential (primary) hypertension; E78.5 Hyperlipidemia, unspecified; K21.9 Gastro-esophageal reflux disease without esophagitis; R94.31 Abnormal electrocardiogram [ECG] [EKG] | CPT/HCPCS: 93005; 99214 ==

== ENCOUNTER → 2023-03-02 14:40 | Outpatient (BNVA) | payer MEDICARE, OTHER, SELFPAY | PROVIDERS: PCP Registered Nurse; Visit Provider Registered Nurse | DX: M06.9 Rheumatoid arthritis, unspecified (principal); M81.0 Age-related osteoporosis without current pathological fracture | CPT/HCPCS: 80053; 85025; 85651; 86140 ==

== ENCOUNTER → 2023-03-10 13:28 | Outpatient (BNVA) | payer MEDICARE, OTHER, SELFPAY | PROVIDERS: PCP Registered Nurse; Visit Provider Podiatrist Foot & Ankle Surgery | DX: I73.9 Peripheral vascular disease, unspecified (principal); L60.8 Other nail disorders; L60.3 Nail dystrophy; M20.42 Other hammer toe(s) (acquired), left foot; M20.41 Other hammer toe(s) (acquired), right foot; M21.611 Bunion of right foot; M21.612 Bunion of left foot | CPT/HCPCS: 99213 ==

== ENCOUNTER → 2023-03-24 10:09 | Outpatient (BNVA) | payer MEDICARE, OTHER, SELFPAY | PROVIDERS: PCP Registered Nurse; Visit Provider Nurse Practitioner Family | DX: D22.5 Melanocytic nevi of trunk (principal) | CPT/HCPCS: 17004; 99213 ==

== ENCOUNTER 2023-04-10 11:00 | Inpatient (IN) | payer MEDICARE, OTHER, SELFPAY ==
[2023-04-10] VITALS (28 sets, daily range): BP systolic 80–173; BP diastolic 50–79; PULSE 63–129; RESP 14–35; TEMP 36.6–36.8; O2SAT 92–100; BMI 21.4
--- NOTE | 2023-04-10 11:05 | ED_ITS ---
HPI - Fever General: Chief Complaint: Weakness Stated Complaint: WEAKNESS; FEVER Time Seen by Provider: 04/10/23 11:05 History of Present Illness: Ms. Lang is an 87-year-old lady with history of A-fib, CAD, melanoma, thyroid disorder, hypertension, hyperlipidemia presented emergency department for generalized illness. She notes onset of symptoms somewhat acutely yesterday with generalized weakness and unwell feeling. She felt so unwell that she could not get out of bed initially. She did manage to run some errands but had a near syncope and struggled to get to her car. She notes associated nausea and concern over possible bowel incontinence. She does have a slight headache and subjective fevers. Shortness of breath but no cough. Occasional chest discomfort. Moderate to severe in intensity. No other specific changes in health, exacerbating, or alleviating factors identified. 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 Angina pectoris Anxiety and depression CAD (coronary artery disease) GERD (gastroesophageal reflux disease) History of melanoma History of nonmelanoma skin cancer Hyperlipidemia Hypertension Hypothyroidism Menopause Recurrent urinary tract infection Rheumatoid arthritis Reported hx by pt Scoliosis Scoliosis (and kyphoscoliosis), idiopathic Surgical History History of hand surgery History of hysterectomy History of intestinal surgery History of open heart surgery 2000 History of tonsillectomy Hx of foot surgery right foot Family History Mother Diabetes Other Parkinson disease Social History Smoking and tobacco status: never smoked Alcohol intake: never Substance/Drug Use: never Adopted: No Caregiver/support person: No Lives independently: No Household members: family service: No Sexually active: No Do you think of yourself as: Straight/Heterosexual Current gender identity: Female Physical Exam Const: COMMON NORMALS: patient oriented x3 and alert GENERAL APPEARANCE: cooperative and well developed HENMT: COMMON NORMALS: normocephalic and atraumatic HEAD & SCALP: normocephalic and atraumatic THROAT: posterior oropharynx normal Eye: COMMON NORMALS: conjunctivae normal CONJUNCTIVA: Yes conjunctivae normal SCLERA: sclerae normal Neck/C-Spine: COMMON NORMALS: supple GENERAL: Yes trachea midline Resp: COMMON NORMALS: clear to auscultation bilaterally EFFORT & INSPECTION: Yes able to speak in complete sentences AUSCULTATION: clear to auscultation bilaterally Cardio: COMMON NORMALS: regular rate and regular rhythm RATE: regular rate RHYTHM: regular rhythm GI: COMMON NORMALS: Soft to palpation PALPATION: Yes Soft to palpation and No Tenderness to palpation present (GI) Extremity: GENERAL: Yes normal exam except as noted and No edema Neuro: COMMON NORMALS: patient oriented x3, CN's II-XII intact bilaterally, moves all extremities, no focal motor deficits and no sensory deficits noted SENSORIUM/ORIENTATION: Yes alert and No Orientation impaired Psych: COMMON NORMALS: mental status grossly normal and Normal thought process present THOUGHT PROCESS: Normal thought process present Procedures Procedural Sedation Indication: other Presedation Evaluation: Performed emergently Preparation: nuclear monitoring technician applied, pulse oximeter, supplemental O2 applied, suction/airway equipment at bedside and IV secured IV Etomidate dose (mg): 8.5 Complications: hypotension Interventions: other (phenylephrine 50 mcg) Course Vital Signs: Vital signs: Vital Signs Temperature 97.4 F L 04/14/23 10:27 Pulse Rate 71 04/14/23 10:27 Respiratory Rate 20 H 04/14/23 10:27 Blood Pressure 120/61 04/14/23 10:27 Pulse Oximetry 93 04/14/23 10:27 Oxygen Delivery Me thod Room Air 04/14/23 07:51 Oxygen Flow Rate 1 04/12/23 19:04 MDM - Fever Medical Decision Making 87-year-old lady presenting with generalized malaise including weakness and subjective headache/chills. Nontoxic in appearance with no focal neurodeficits. EKG demonstrates atrial fibrillation with rapid ventricular response. No STEMI. Labs with no significant hematologic or metabolic abnormalities to clearly explain symptoms. Intermediate range 2-hour delta troponin. No viral infect ion. UA pending. Chest x-ray with no lobar consolidation or pneumothorax. Patient treated during ED course prior to mission with metoprolol for rate control, antiemetic and analgesia and fluids. The results of ED evaluation were discussed with the patient including plan for admission due to requirement for level of care not available if discharged to prevent significant worsening/deterioration. Patient agreeable with plan. Discussed with hospitalist service who was agreeable to admit patient. Subsequent to admission patient still in ER and became hypotensive requiring procedural sedation and cardioversion. 100, 120, 150. Did require 50 mcg of phenylephrine push dose in addition to IV fluids. Eventually settling of arrhythmia back to sinus rhythm. Patient completely recovered from procedural sedation without evidence of complication. Medical Records I reviewed the patient's medical records. Lab Data I reviewed the patient's lab results. 04/14/23 04:04 04/14/23 04:04 Radiology Impressions Chest X-Ray 04/10/23 11:24 IMPRESSION: 1. No acute findings. 2. Metallic sternotomy wires are present Head CT 04/11/23 10:19 IMPRESSION: 1. Chronic intracranial changes without acute bleed. 2. Sinus disease. Laboratory Results WBC 7.1 10^3/uL (4.0-10.0) 04/10/23 12:38 RBC 3.80 10^6/uL (4.1-5.3) L 04/10/23 12:38 Hgb 12.5 g/dL (11.5-15.3) 04/10/23 12:38 Hct 39.9 % (37.0-47.0) 04/10/23 12:38 MCV 105.0 fl (81-99) H 04/10/23 12:38 MCH 32.9 pg (28.0-34.0) 04/10/23 12:38 MCHC 31.3 g/dL (30.0-36.0) 04/10/23 12:38 RDW 15.9 % (12.1-15.1) H 04/10/23 12:38 Plt Count 205 10^3/cmm (130-400) 04/10/23 12:38 MPV 10.2 fL (7.4-10.4) 04/10/23 12:38 Neut % (Auto) 91.5 % 04/10/23 12:38 Lymph % (Auto) 5.6 % 04/10/23 12:38 [place] % (Auto) 1.4 % 04/10/23 12:38 Eos % (Auto) 0.1 % 04/10/23 12:38 Baso % (Auto) 0.3 % 04/10/23 12:38 Neut # (Auto) 6.52 10^3/uL (1.8-7.7) 04/10/23 12:38 Lymph # (Auto) 0.4 10^3/uL (0.8-4.8) L 04/10/23 12:38 [place] # (Auto) 0.1 10^3/uL (0.2-0.9) L 04/10/23 12:38 Eos # (Auto) 0.0 10^3/uL (0.0-0.8) 04/10/23 12:38 Baso # (Auto) 0.0 10^3/uL (0.0-0.1) 04/10/23 12:38 Nucleated RBC % (auto) 0 % 04/10/23 12:38 Nucleated RBCs # 0.0 /100WBC 04/10/23 12:38 Sodium 137 mmol/L (136-145) 04/10/23 12:38 Potassium 4.2 mmol/L (3.5-5.1) 04/10/23 12:38 Chloride 103 mmol/L (98-107) 04/10/23 12:38 Carbon Dioxide 22 mmol/L (22-29) 04/10/23 12:38 Anion Gap 16.2 (5-19) 04/10/23 12:38 BUN 19 mg/dL (8-23) 04/10/23 12:38 Creatinine 0.9 mg/dL (0.5-0.9) 04/10/23 12:38 GFR Calculation Not Reportable 04/10/23 12:38 Glucose 99 mg/dL (65-115) 04/10/23 12:38 Calculated Osmolality 286 mOsm/kg (285-295) 04/10/23 12:38 Lactic Acid 1.2 mmol/L (0.5-2.2) 04/10/23 12:38 Calcium 8.3 mg/dL (8.5-10.5) L 04/10/23 12:38 Magnesium 2.2 mg/dL (1.7-2.3) 04/10/23 12:38 Total Bilirubin 0.9 mg/dL (0.15-1.2) 04/10/23 12:38 AST 22 U/L (0-32) 04/10/23 12:38 ALT 13 U/L (0-33) 04/10/23 12:38 Alkaline Phosphatase 50 U/L (35-105) 04/10/23 12:38 Troponin T Baseline 18 ng/L (0-10) H 04/10/23 12:38 C-Reactive Protein 64.9 mg/L (0.0-4.9) H 04/10/23 12:38 Total Protein 6.5 g/dL (6.6-8.7) L 04/10/23 12:38 Albumin 3.8 g/dL (3.5-5.2) 04/10/23 12:38 Globulin 2.7 g/dL (1.3-4.6) 04/10/23 12:38 Procalcitonin 0.48 ng/mL (0-0.5) 04/10/23 12:38 TSH 1.03 uIU/mL (0.27-4.20) 04/10/23 12:38 Urine Color Yellow (Yellow) 04/10/23 11:43 Urine Appearance Sl hazy (CLEAR) A 04/10/23 11:43 Urine pH 8 (5-7) H 04/10/23 11:43 Ur Specific [place] 1.005 (1.005-1.030) 04/10/23 11:43 Urine Protein Neg (Negative) 04/10/23 11:43 Urine Glucose (UA) Norm (Normal) 04/10/23 11:43 Urine Ketones Negative (Negative) 04/10/23 11:43 Urine Blood Neg (Negative) 04/10/23 11:43 Urine Nitrate Negative (Negative) 04/10/23 11:43 Urine Bilirubin Neg (Negative) 04/10/23 11:43 Prot Sulfosalicylic Acd Negative (Negative) 04/10/23 11:43 Urine Urobilinogen Norm mg/dL (Negative) 04/10/23 11:43 Ur Leukocyte Esterase Negative (Negative) 04/10/23 11:43 Urine RBC None /hpf (0-2) 04/10/23 11:43 Urine WBC 5-10 /hpf (0-5) H 04/10/23 11:43 Ur Squamous Epith Cells 0-4 /hpf (0-5) H 04/10/23 11:43 Amorphous Sediment Not Reportable 04/10/23 11:43 Urine Bacteria Trace /hpf (NONE) 04/10/23 11:43 Nasal Influ A H1 2009 PCR Not detected (NOT DETECT) 04/10/23 11:34 Adenovirus (PCR) Not detected (NOT DETECT) 04/10/23 11:34 C. pneumoniae DNA (PCR) Not detected (NOT DETECT) 04/10/23 11:34 Coronavirus 229E (PCR) Not detected (NOT DETECT) 04/10/23 11:34 Human Metapneumovir PCR Not detected (NOT DETECT) 04/10/23 11:34 Influenza A (H1) PCR Not detected (NOT DETECT) 04/10/23 11:34 Influenza A (H3) PCR Not detected (NOT DETECT) 04/10/23 11:34 Influenza Type A (PCR) Not detected (NOT DETECT) 04/10/23 11:34 Influenza Type B (PCR) Not detected (NOT DETECT) 04/10/23 11:34 M. pneumoniae (PCR) Not detected (NOT DETECT) 04/10/23 11:34 Parainfluenza 1 (PCR) Not detected (NOT DETECT) 04/10/23 11:34 Parainfluenza 2 (PCR) Not detected (NOT DETECT) 04/10/23 11:34 Parainfluenza 3 (PCR) Not detected (NOT DETECT) 04/10/23 11:34 Parainfluenza 4 (PCR) Not detected (NOT DETECT) 04/10/23 11:34 RSV Type A (PCR) Not detected (NOT DETECT) 04/10/23 11:34 RSV Type B (PCR) Not detected (NOT DETECT) 04/10/23 11:34 Entero/Rhino (PCR) Not detected (NOT DETECT) 04/10/23 11:34 SARS-CoV-2 (PCR) Not detected (NOT DETECT) 04/10/23 11:34 Critical Care Time Critical Care Time: Critical Care Time: Yes Total Critical Care Time: 80 Attestation: Due to a high probability of clinically significant, possibly life threatening deterioration, the patient required my highest level of attention and preparedness to intervene emergently and I personally spent this critical care time directly and personally managing the patient. This critical care time in cluded obtaining a history; examining the patient; pulse oximetry; ordering and review of laboratory and imaging studies; arranging urgent treatment with development of a management plan; evaluation of patient's response to treatment; frequent reassessment; and, discussions with other providers as applicable. It was exclusive of separately billable procedures. Primary system involved is cardiovascular. 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
--- NOTE | 2023-04-10 11:24 | XRR_ITS ---
PROCEDURE INFORMATION: Exam: XR Chest Exam date and time: 04/10/2023 11:42 AM Age: 87 years old Clinical indication: Shortness of breath; Patient HX: Limited HX due to PT condition; Additional info: SOB TECHNIQUE: Imaging protocol: Radiologic exam of the chest. Views: 1 view. COMPARISON: CR XR chest 1V [id number] 06/29/2021 11:41 AM FINDINGS: Lungs: Unremarkable. No consolidation. Pleural spaces: Unremarkable. No pleural effusion. No pneumothorax. Heart/Mediastinum: Unremarkable. No cardiomegaly. Bones/joints: Metallic sternotomy wires are present. Other findings: Similar findings seen comparing to prior examination XR/XR chest 1V portable [id number] IMPRESSION: 1. No acute findings. 2. Metallic sternotomy wires are present
--- NOTE | 2023-04-10 11:25 | ECG_ITS ---
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 Measurements Intervals [place] Rate: 93 P: -8 DE: 156 QRS: -9 QRSD: 82 T: 61 QT: 357 QTc: 444 Interpretive Statements SINUS RHYTHM POSSIBLE LEFT ATRIAL ENLARGEMENT [-0.1mV P-WAVE IN V1/V2] NONSPECIFIC ST & T-WAVE ABNORMALITY Compared to ECG 01/27/2023 11:45:24 No significant changes Electronically Signed On 04-10-2023 13:09:29 CDT by Toni Galvez M.D. [id number]
[2023-04-10] MEDS: gabapentin 100 mg Capsule PO (11:33)
[2023-04-10 12:03] LABS: Protein Urine Neg (Negative); Specific Gravity, Urine 1.005 (1.005-1.030); Urine Appearance SL Hazy (CLEAR); Urine Color Yellow (Yellow); pH Urine 8 (5-7)
[2023-04-10 12:04] LABS: Add Urine Culture? No; Add Urine Microscopic? YES; Bacteria Urine TRACE /hpf; Bilirubin Urine Neg (Negative); Blood Urine Neg (Negative); Glucose Urine UA Norm (Normal); Ketones Urine Negative (Negative); Leukocyte Esterase Urine Negative (Negative); Nitrate Urine Negative (Negative); Squamous Epithelial Cell Urine 0-4 /hpf (0-5); Sulfosalicylic Acid Urine Negative (Negative); Urobilinogen Urine Norm (Negative)
--- NOTE | 2023-04-10 13:21 | ECG_ITS ---
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 Measurements Intervals [place] Rate: 141 P: 0 MT: 0 QRS: 7 QRSD: 74 T: 68 QT: 304 QTc: 466 Interpretive Statements ATRIAL FIBRILLATION WITH RAPID VENTRICULAR RESPONSE NONSPECIFIC ST & T-WAVE ABNORMALITY ABNORMAL RHYTHM ECG Compared to ECG 04/10/2023 11:35:40 Sinus rhythm no longer present T-wave abnormality still present Electronically Signed On 04-11-2023 19:57:20 CDT by Toni Galvez M.D. [id number]
[2023-04-10 13:25] LABS: Basophils % 0.3 %; Eosinophils % 0.1 %; Hematocrit 39.9 % (37.0-47.0); Hemoglobin 12.5 g/dL (11.5-15.3); Lymphocytes # 0.4 10^3/uL (0.8-4.8); Lymphocytes % 5.6 %; Mean Corpuscular HGB Conc 31.3 g/dL (30.0-36.0); Mean Corpuscular Hemoglobin 32.9 pg (28.0-34.0); Mean Platelet Volume 10.2 fL (7.4-10.4); Monocytes # 0.1 10^3/uL (0.2-0.9); Monocytes % 1.4 %; Neutrophils # 6.52 10^3/uL (1.8-7.7); Neutrophils % 91.5 %; Nucleated Red Blood Cells % 0 %; Platelet Count 205 10^3/cmm (130-400); Red Cell Distribution Width 15.9 % (12.1-15.1); White Blood Count 7.1 10^3/uL (4.0-10.0)
[2023-04-10 13:27] LABS: Lactic Sepsis W/Reflex 1.2 mmol/L (0.5-2.2)
[2023-04-10] MEDS: sodium chloride 0.9% 1,000 ML 999 ML IV ×2 (13:33→16:21)
[2023-04-10] MEDS: metoprolol tartrate 1 mg/1 mL SDV 5 mL 2.5 MG IVP ×2 (13:33→14:17)
[2023-04-10 13:34] LABS: Adenovirus Not Detected (NOT DETECT); Chlamydia Pneumoniae Not Detected (NOT DETECT); Coronavirus 229E,HKU1,NL63,OC4 Not Detected (NOT DETECT); Human Metapneumovirus Not Detected (NOT DETECT); Human Rhinovirus/Enterovirus Not Detected (NOT DETECT); Influenza A Not Detected (NOT DETECT); Influenza A H1 Not Detected (NOT DETECT); Influenza A H1-2009 Not Detected (NOT DETECT); Influenza A H3 Not Detected (NOT DETECT); Influenza B Not Detected (NOT DETECT); Mycoplasma Pneumoniae Not Detected (NOT DETECT); Parainfluenza Virus Type 1 Not Detected (NOT DETECT); Parainfluenza Virus Type 2 Not Detected (NOT DETECT); Parainfluenza Virus Type 3 Not Detected (NOT DETECT); Parainfluenza Virus Type 4 Not Detected (NOT DETECT); Respiratory Syncytial Virus A Not Detected (NOT DETECT); Respiratory Syncytial Virus B Not Detected (NOT DETECT); SARS-COV-2 Not Detected (NOT DETECT)
[2023-04-10 13:38] LABS: Procalcitonin 0.48 ng/mL (0-0.5); Thyroid Stimulating Hormone 1.03 uIU/mL (0.27-4.20)
[2023-04-10 13:42] LABS: Troponin(5th) Baseline 18 ng/L (0-10)
[2023-04-10] MEDS: ondansetron 2 mg/ML SDV 2 mL 4 MG IVP (13:42)
[2023-04-10] MEDS: morphine 4 mg/mL SDV 1 mL IVP (13:42)
[2023-04-10 13:49] LABS: Alanine Aminotransferase 13 U/L (0-33); Albumin Level 3.8 g/dL (3.5-5.2); Alkaline Phosphatase 50 U/L (35-105); Anion Gap 16.2 (5-19); Aspartate Amino Transferase 22 U/L (0-32); Blood Urea Nitrogen 19 mg/dL (8-23); C Reactive Protein 64.9 mg/L (0.0-4.9); Calcium 8.3 mg/dL (8.5-10.5); Carbon Dioxide 22 mmol/L (22-29); Chloride 103 mmol/L (98-107); Globulin 2.7 g/dL (1.3-4.6); Glucose 99 mg/dL (65-115); Magnesium 2.2 mg/dL (1.7-2.3); Osmolality Calculated 286 mOsm/kg (285-295); Potassium 4.2 mmol/L (3.5-5.1); Sodium 137 mmol/L (136-145); Total Bilirubin 0.9 mg/dL (0.15-1.2); Total Protein 6.5 g/dL (6.6-8.7)
--- NOTE | 2023-04-10 14:03 | PC.PHAR ---
pt states she takes care of her own medications-pt states she takes lasix 20mg qam ext shows filled 02/05/23 90d/s 10mg po qam prn-pt states she takes methotrexate 10mg on and wed-rx filled 01/27/23 20mg q7d pt states she likes to break them up and not take all 8 tabs (20mg) at once-pt states she takes ultram 50mg bid prn ext doesnt show when last filled-notes are made in the pharmacy comments
[2023-04-10] MEDS: esmolol drip 2,500 MG/250 ML PREMIX 17.01 MG IV (14:39)
--- NOTE | 2023-04-10 15:38 | P.CONIM_ITS ---
Providers/Reason For Consult Consulting Physician/Specialty*: DAYA Galvez MD/cardiology Reason for Consult*: Patient with intermittent atrial fibrillation has been taking the Betapace. Started on IV esmolol in the emergency room. Heart rate still remains uncontrolled and is becoming hypotensive Requesting Physician: Dr. Dixon/ Dr Hunt Attending Physician: Ilan Dixon Primary Care Provider: PARISH Medel History of Present Illness History of Present Illness Shanna Lang is a 87 year old female is brought to the emergency room today by ambulance. This patient has a history of atherosclerotic heart diseas, status post coronary bypass surgery, status post PCI, intermittent atrial fibrillation, high blood pressure, dyslipidemia, rheumatoid arthritis, subclavian artery stenosis -apparently has been in her baseline state of health up until yesterday morning when she called her son to say that she is not feeling well. Her son went to see her around 1030 or so. She was complaining of generalized weakness/lethargy. She also is complaining of feeling cold- thought that she might be getting COVID-19. Her son wanted to take her to the hospital, she refused. This morning she called the son again because of the generalized weakness and inability move around. She had difficulty in walking. Somehow she crawled to the phone and called him. She was found to be extremely lethargic and unable to get up and move around. For that reason, the son called the ambulance and the patient was brought to the emergency room. She is complaining of generalized weakness and some body aches. She thought that she may have a fever. She has no abdominal pain or dysuria. No headache or blurring of vision. She has a history of atherosclerotic heart diseas and had a single-vessel coronary bypass surgery in 2000. She had a CEVALLOS to the LAD at that time. In 2015, she presented with acute inferior wall myocardial infarction complicated with hypotension. 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 She underwent a thrombectomy and stent placement of this peggy ry. In the [employer], she went into V-fib arrest. She was successfully resuscitated. In 2020, she had an angiogram revealing high-grade lesion in the obtuse marginal artery. She underwent angioplasty and stent placement of this lesion. She apparently developed wire perforation of the distal artery for which she was treated with prolonged balloon inflation. She did not have any significant hemopericardium at that time. Her LV ejection fraction by echocardiogram in June 2021 was reported as 55 to 59% According the patient, she has been doing okay with no significant chest pain or any specific cardiac symptoms up until yesterday morning. She had a CTA in 2018 which revealed less than 50% gnosis of the left subclavian artery with a questionable dissection. Apparently she did not have any significant symptoms in the left upper extremity. She was a started on Multaq in the past for the atrial fibrillation. But because the nausea and vomiting, it had to be discontinued. She has been taking the Betapace since then. Has not had any recent medication changes. She was found to be in atrial fibrillation with rapid ventricular rate in the emergency room. She was started on IV esmolol. Apparently the heart rate stayed in the 130- 140 range. Her systolic blood pressure was in the 70s as I was examining the patient in the emergency room. The patient was found to be getting more lethargic. So for this reason, cardioversion was attempted with 100, 120 and then finally with 150 J of biphasic current. Patient was given IV amiodarone 150 mg prior to the 150 J. After a few minutes of the last shock, she was converted to normal sinus rhythm. Review of Systems Narrative: CONSTITUTIONAL: Generalized weakness/lethargy. Possible low-grade fever at home EYES: No blurring of vision or other visual disturbances lately. ENT: No hoarseness of voice, auditory disturbances or sore throat. CARDIOVASCULAR: As mentioned above. RESPIRATORY: No significant cough. GASTROINTESTINAL: History of GERD GENITOURINARY: No dysuria or hematuria. INTEGUMENTARY: No skin rashes or history of skin cancer. NEURO: No transient ischemic attacks or amaurosis. PSYCHIATRIC: No history of psychosis or major depression. HEMATOLOGIC: No bleeding disorders or significant anemia. ENDOCRINE: No history of polyuria or polydipsia. MUSCULOSKELETAL: No recent joint pain or swelling. ALLERGY/IMMUNOLOGY: As mentioned above. Medications/Allergies Home Medications Medication Instructions Recorded Confirmed Last Taken Type ascorbic acid (vitamin C) 500 mg 500 mg PO DAILY 09/01/21 04/10/23 02/26/22 History capsule calcium carbonate 600 mg calcium 600 mg PO DAILY 09/01/21 04/10/23 02/26/22 History (1,500 mg) tablet cholecalciferol (vitamin D3) 50 50 mcg PO DAILY PRN unknown 09/01/21 04/10/23 02/26/22 History mcg (2,000 unit) capsule potassium gluconate 595 mg (99 mg) 595 mg PO DAILY PRN unknown 09/16/21 04/10/23 02/26/22 History tablet Back brace #1 ea 11/20/21 04/10/23 02/26/22 Rx tramadol 50 mg tablet 50 mg PO BID PRN pain #60 tabs 12/22/21 04/10/23 02/26/22 Rx nitroglycerin 400 mcg/spray 1 spray translingual Q5M PRN chest 02/09/22 04/10/23 02/26/22 Rx translingual pain #4.9 grams doughnut cushion #1 ea 04/07/22 04/10/23 Unknown Rx accommodative orthotic #1 ea 04/15/22 04/10/23 Unknown Rx evolocumab 140 mg/mL subcutaneous 140 mg SUBCUT Q14D #2 mL 05/21/22 04/10/23 Unknown Rx pen injector (Felicita Antonio) mecobalamin (vitamin B12) 1,000 1,000 mcg PO DAILY #60 tabs 07/14/22 04/10/23 Unknown Rx mcg chewable tablet sotalol 80 mg tablet 40 mg PO BID #90 tabs 07/14/22 04/10/23 04/09/23 Rx prednisone 5 mg tablet 5 mg PO DAILY PRN Pain #60 tabs 10/14/22 04/10/23 Unknown Rx folic acid 1 mg tablet 1 mg PO TID #270 tabs 11/25/22 04/10/23 04/09/23 Rx apixaban 2.5 mg tablet (Eliquis) 2.5 mg PO BID #180 tabs 12/04/22 04/10/23 04/09/23 Rx zinc oxide 40 % topical ointment 1 applic topical TID PRN skin 01/19/23 04/10/23 Unknown Rx irritation 30 days #113 grams furosemide 20 mg tablet 20 mg PO QAM 01/27/23 04/10/23 04/09/23 History see pharmacy comment gabapentin 100 mg capsule 100 mg PO BID #180 caps 01/27/23 04/10/23 04/09/23 Rx Colon Health 1 cap PO QAM 04/10/23 04/10/23 Unknown History Focus Factor 1 tab PO DAILY 04/10/23 04/10/23 Unknown History Vinia Red Grape Powder Capsule 1 cap PO DAILY 04/10/23 04/10/23 Unknown History Viviscal 1 tab PO DAILY 04/10/23 04/10/23 Unknown History conjugated estrogens 0.3 mg tablet 0.3 mg PO QAM 04/10/23 04/10/23 04/09/23 History (Premarin) lactase 3,000 unit tablet (Lactaid) 3,000 - 9,000 unit PO DAILY PRN 04/10/23 04/10/23 Unknown History unknown levothyroxine 88 mcg capsule 88 mcg PO QAM 04/10/23 04/10/23 04/09/23 History (Tirosint) loperamide-simethicone 2 mg-125 mg 1 tab PO PRN 04/10/23 04/10/23 Unknown History tablet (Imodium Multi-Symptom Relief) methotrexate sodium 2.5 mg tablet 10 mg PO .ON AND Wed04/10/23 04/10/23 Unknown History ziupajde-bty-plvr-FA-Ca carb-vit K 1 tab PO DAILY 04/10/23 04/10/23 Unknown History 18 mg iron-400 mcg-500 mg tablet oqraaxqr-unu- 250 mg-dha 90 1 cap PO DAILY 04/10/23 04/10/23 Unknown History mg-epa 160 ks-tzyt-qyij-zeax capsule (Ocuvite Adult 50 Plus) omeprazole 40 mg capsule,delayed 40 mg PO QAM 04/10/23 04/10/23 04/09/23 History release Allergies Allergy/AdvReac Type Severity Reaction Status Date / Time lactose Allergy Unknown Verified 04/10/23 13:44 Sulfa (Sulfonamide Allergy ADR-Vomitin Verified 04/10/23 13:44 Antibiotics) g Current Medications Generic Name Dose Route Start Last Admin Trade Name Freq PRN Reason Stop Dose Admin Esmolol HCl 2,500 mg in 250 mls @ 0 mls/hr 04/10/23 14:30 04/10/23 15:17 Brevibloc Drip IV 150 mcg/kg/min .Q0M INOCENCIA 51.03 mls/hr Titration Protocol Per Protocol PFSH Acute PFSH: Medical History Afib 2020 Anal sphincter incompetence Angina pectoris Anxiety and depression CAD (coronary artery disease) GERD (gastroesophageal reflux disease) History of melanoma History of nonmelanoma skin cancer Hyperlipidemia Hypertension Hypothyroidism Menopause Recurrent urinary tract infection Rheumatoid arthritis Reported hx by pt Scoliosis Scoliosis (and kyphoscoliosis), idiopathic Surgical History History of hand surgery History of hysterectomy History of intestinal surgery History of open heart surgery 2000 History of tonsillectomy Hx of foot surgery right foot Family History Mother Diabetes Other Parkinson disease Social History Smoking and tobacco status: never smoked Alcohol intake: never Substance/Drug Use: never Adopted: No Caregiver/support person: No Lives independently: No Household members: family service: No Sexually active: No Do you think of yourself as: Straight/Heterosexual Current gender identity: Female Vitals/I&O/Wt Last Vital Signs Temp 98.3 F 04/10/23 11:01 Pulse 129 H 04/10/23 15:00 Resp 19 H 04/10/23 13:42 BP 98/60 04/10/23 14:30 Pulse Ox 99 04/10/23 15:00 O2 Del Method Room Air 04/10/23 14:30 04/10/23 04/10/23 04/10/23 06:59 14:59 22:59 Intake Total 13.324 / 13.324 Balance 13.324 / 13.324 Weight last 48 hrs Weight 125 lb Physical Exam Narrative: GENERAL: The patient is alert and oriented times three. Appears to be lethargic . HEENT: No significant pallor, icterus or lymphadenopathy.Oral cavity: There are no mucous membrane lesions. NECK: Trachea appears to be central. No masses noted. No JVD or thyromegaly appreciated. RESPIRATORY: Chest is symmetrical. No intercostals muscle retraction or any accessory muscle activation. There is no chest wall tenderness. Breath sounds are heard bilaterally. No rales or rhonchi heard. No evidence of any consolidation. BREASTS: Deferred. HEART: The heart sounds are normal. No S3 or S4. Short systolic murmur at the lower sternal border. No diastolic murmurs.. No pericardial rub ABDOMEN: No vessel pulsations or distention. No tenderness. No organomegaly appreciated. Bowel sounds are normally heard. : Deferred. RECTAL: Deferred. LYMPHATIC: No lymphadenopathy noted in the neck. EXTREMITIES: No edema or cyanosis. No clubbing. MUSCULOSKELETAL: No acute joint deformities or swelling SKIN: There are no significant rashes or ecchymosis NEUROPSYCHIATRIC: The patient is alert and oriented x3. Appears to be in a good mood. No tremors or rigidity noted. Data 04/10/23 12:38 04/10/23 12:38 Micro: Microbiology 04/10/23 13:35 Blood Culture - Preliminary Blood SPECIMEN COLLECTED 04/10/23 12:38 Blood Culture - Preliminary Blood SPECIMEN COLLECTED EKG 1: My Interpretation: The EKG showed atrial fibrillation with a rapid ventricular rate of [address]-T changes. A&P Assessment and plan (1) Atrial fibrillation with rapid ventricular response: The patient became hypotensive in the emergency room. She was treated with IV fluid. The systolic blood pressure stayed in the 70s. For this reason, she was cardioverted into sinus rhythm after the third shock of 150 J and giving 150 mg of IV amiodarone. At this point, she will be kept on IV amiodarone. May hold off on the Betapace for the time being. May hold off on the Eliquis for the time being. May be treated with the subcu Lovenox (2) PVD (peripheral vascular disease): Patient is known to have subclavian artery stenosis of 50%. Since she has no specific symptoms, may continue the current risk modifying measures. (3) Atherosclerosis of coronary artery of [place] without angina pectoris: Patient with history of coronary disease, status post coronary bypass [id number], CEVALLOS to the LAD in 2000. Status post inferior wall LA in 2015, thrombotic occlusion of the RCA, underwent thrombectomy and stent placement. Procedure was complicated with V-fib arrest in the [employer]. Had a PCI of the obtuse marginal artery lesion in January 2021, complicated with wire perforation of the distal artery treated by prolonged balloon inflation Patient currently has no chest pain. May need to consider Myocardial perfusion imaging to evaluate for any ischemia. (4) Hypertension: Status post hypotension possibly from the arrhythmia. She was given phenylephrine in the ER. Her blood pressure currently is in the normal range. Qualifiers: Hypertension type: primary hypertension Qualified Code(s): I10 - Essential (primary) hypertension (5) Rheumatoid arthritis: And is being followed by the rheumatology clinic Qualifiers: Rheumatoid arthritis location: unspecified site Rheumatoid factor presence: unspecified presence Qualified Code(s): M06.9 - Rheumatoid arthritis, unspecified (6) Hyperlipidemia: May continue on the current medications. (7) GERD (gastroesophageal reflux disease): May continue on the current management Plan Echocardiogram would be helpful to evaluate LV function and rule out any other pathology. Serial cardiac enzymes and EKGs to rule out myocardial infarction May be kept on the IV amiodarone for the time being. She has a history of intolerance to Multaq-nausea and vomiting. Need to be closely monitored for any side effects. Eliquis may be held at this point. May be started on Lovenox. Based on the clinical progress, further recommendations will be made. Thank you for the opportunity to evaluate this patient and make these recommendations Consult Attestations Medical Necessity Statement: Patient requires continued hospital stay for close monitoring and further management Coding Level of Care Code 10126 Diagnoses Atrial fibrillation with rapid ventricular response I48.91 PVD (peripheral vascular disease) I73.9 Atherosclerosis of coronary artery of [place] without angina pectoris I25.10 Hypertension I10 Hypertension type: primary hypertension Rheumatoid arthritis M06.9 Rheumatoid arthritis location: unspecified site Rheumatoid factor presence: unspecified presence Hyperlipidemia E78.5 GERD (gastroesophageal reflux disease) K21.9
--- OUTSIDE RECORDS SUMMARY | 2023-04-10 15:48 | XMS_ITS | Patient Health Record ---
Author Name Unknown Organization [facility] Address [address] [place], [place] [id number] Care Team Providers Care Corporate Law Assistant Name Role Phone Alexa Mccoy Primary Care Provider Kellie Fang MD, Ciro Unavailable [phone] Valentin Santiago Unavailable Unavailable Yin Jones Unavailable [phone] ALLERGIES Allergen (clinical drug ingredient) Drug/Non Drug Allergy documented on EMR Reaction Allergy Type Onset Date Status Lactose lactose (uncoded) Unknown Allergy Ac tive sulfa (uncoded) Unknown Allergy Acti ve RESULTS Component Value Reference Range Notes DRUG MONITORING TEMPLATE Reviewed date:09/08/2022 03:52:01 PM Interpretation: Performing Lab:[id number] [facility], [id number] Quinn Richter D.O., MPH Notes/Report: 0 0 Notes and Comments This drug testing is for medical treatment only. Analysis was performed as non-forensic testing and these results should be used only by healthcare providers to render diagnosis or treatment, or to monitor progress of medical conditions. Tramadol Notes: Tramadol detected is consistent with the use of the drug Tramadol. The metabolite Desmethyltramadol is not present at or above the cutoff. LDT Notes: Confirmation tests were developed and their analytical performance characteristics have been determined by [facility]. It has not been cleared or approved by the FDA. This assay has been validated pursuant to the CLIA regulations and is used for clinical purposes. medMATCH(R) enables providers to identify if drug use is consistent or inconsistent with a corresponding prescribed medication(s) list. Healthcare Providers needing Interpretation assistance, please contact us at [phone] ( ) M-F, 8am to 10pm EST DRUG MONITOR, medMatch add-o n [id number] Reviewed date:09/08/2022 03:51:49 PM Interpretation: Performing Lab:[facility][id number] Cj Cai, [id number] Quinn Richter D.O., MPH Notes/Report: 0 0 medMATCH Summary Prescribed Prescribed Not Prescribed Consistent Inconsistent Inconsistent Tramadol Prescribed Drug 1 Tramadol DRUG MONITOR, [place] [id number] Reviewed date:09/08/2022 03:51:35 PM Interpretation: Performing Lab:[facility] [id number] Claudia Ordaz, [id number] Lauro Rajput M.D. Notes/Report: 0 0 Buprenorphine NEGATIVE <2 ng/mL Norbuprenorphine NEGATIVE <2 ng/mL Naloxone NEGATIVE <2 ng/mL Buprenorphine Comments See LDT Notes See LDT Notes See LDT Notes See LDT Notes See LDT Notes See LDT Notes See LDT Notes See LDT Notes See Tramadol Notes, LDT Notes Fentanyl NEGATIVE <0.5 ng/mL Norfentanyl NEGATIVE <0.5 ng/mL Fentanyl Comments See LDT Notes See LDT Notes See LDT Notes See LDT Notes See LDT Notes See LDT Notes See LDT Notes See LDT Notes See Tramadol Notes, LDT Notes Heroin Metabolite NEGATIVE <10 ng/mL Heroin Metab Comments See LDT Notes See LDT Notes See LDT Notes See LDT Notes See LDT Notes See LDT Notes See LDT Notes See LDT Notes See Tramadol Notes, LDT Notes Methadone NEGATIVE <100 ng/mL EDDP NEGATIVE <100 ng/mL Methadone Comments See LDT Notes See LDT Notes See LDT Notes See LDT Notes See LDT Notes See LDT Notes See LDT Notes See LDT Notes See Tramadol Notes, LDT Notes Dextromethorphan NEGATIVE <20 ng/mL Dextrorphan NEGATIVE <20 ng/mL Methorphan Comments See LDT Notes See LDT Notes See LDT Notes See LDT Notes See LDT Notes See LDT Notes See LDT Notes See LDT Notes See Tramadol Notes, LDT Notes Mitragynine NEGATIVE <2 ng/mL Mitragynine Comments See LDT Notes See LDT Notes See LDT Notes See LDT Notes See LDT Notes See LDT Notes See LDT Notes See LDT Notes See Tramadol Notes, LDT Notes Codeine NEGATIVE <50 ng/mL Hydrocodone NEGATIVE <50 ng/mL Hydromorphone NEGATIVE <50 ng/mL Norhydrocodone NEGATIVE <50 ng/mL Morphine NEGATIVE <50 ng/mL Oxycodone NEGATIVE <50 ng/mL Oxymorphone NEGATIVE <50 ng/mL Noroxycodone NEGATIVE <50 ng/mL Opiates Comments See LDT Notes See LDT Notes See LDT Notes See LDT Notes See LDT Notes See LDT Notes See LDT Notes See LDT Notes See Tramadol Notes, LDT Notes Tapentadol NEGATIVE <50 ng/mL Nortapentadol NEGATIVE <50 ng/mL Tapentadol Comments See LDT Notes See LDT Notes See LDT Notes See LDT Notes See LDT Notes See LDT Notes See LDT Notes See LDT Notes See Tramadol Notes, LDT Notes Tramadol 137 <100 ng/mL medMATCH Tramadol CONSISTENT See LDT Notes See LDT Notes See LDT Notes See LDT Notes See LDT Notes See LDT Notes See LDT Notes See LDT Notes See Tramadol Notes, LDT Notes O desmethyltramadol NEGATIVE <100 ng/mL Tramadol Comments See LDT Notes See LDT Notes See LDT Notes See LDT Notes See LDT Notes See LDT Notes See LDT Notes See LDT Notes See Tramadol Notes, LDT Notes Urine tox screen / MS if ind icated Reviewed date:09/08/2022 03:52:27 PM Interpretation: Performing Lab: Notes/Report: REASON FOR REFERRAL Reason Spinal stenosis, lum bar region with neurogenic claudication Diagnosis 1 Spinal stenosis, lum bar region with neurogenic claudication (M48.062) Referring Provider First Name Valentin Referring Provider Last Name Filiberto Referring Provider Speciality Physician Floral Specialist Referred Organization [facility] Referred Provider Ciro Fang Referred Address [address],[place], [id number], Referred Provider Specialty Pain Managem ent General Notes Anahi Velasquez 03/2022 12:20:08 PM > Sent for insurance verification. Referral Priority Routine MEDICATIONS Medication SIG (Take, Route, Frequency, Duration) Notes Start Date End Date Status melatonin 10 mg 1 tab(s) orally once a day (at bedtime) Active Leg Cramps Active Lactaid Active Imodium Multi-Symptom Relief 2 mg-125 mg 1 tab(s) orally every 6 hours, as needed Active furosemide 20 mg 1/2 tab(s) orally on ce a day Active folic acid 1 mg 1 tab(s) orally 3 ti mes a day Active Focus Factor Active Viviscal hair growth supplement as directed Active Fiber Advance gummies as directed Active Vitamin D3 125 mcg 1 cap(s) orally once a day for 30 day(s) Active Eliquis 2.5 mg 1 tab(s) orally 2 ti mes a day for 30 day(s) Active Vitamin C with Carly Hips 1000 mg 1 tab(s) orally once a day for 30 day(s) Active Collagen Active Vitamin B12 1000 mcg 1 tab(s) orally onc e a day for 30 day(s) Active Tylenol PM as needed/directed Active Tylenol 8 HR Arthritis Pain 650 mg 1-2 tab(s) orally every 8 hours, as needed Active Calcium 600+D 600 mg-20 mcg 1 tab(s) ora lly as directed Active Blank 24 Hour Allergy 180 mg 1 tab(s) orally once a day Active traMADol 50 mg 1 tab po orally Q12H prn pain Active Tirosint 88 mcg (0.088 mg) 1 cap(s) oral ly once a day for 30 day(s) Active sotalol 80 mg 1/2 tab(s) orally 2 times a day Active Premarin 0.3 mg 1 tab(s) orally once a day for 21 day(s) Active predniSONE 5 mg 1-2 tab(s) orally da joanne, as needed for rheumatoid arthritis flare Active Potassium Gluconate 99 mg as directed Active omeprazole 40 mg 1 cap(s) orally once a day Active Ocuvite Adult 50+ Ac tive methotrexate 2.5 mg 4 tab(s) orally once a week Active methenamine mandelate 1 g 1 tab(s) orall y 2 times a day Active SOCIAL HISTORY Tobacco Use: Social History Observation Description Date Details (start date - stop date) Never Smoker NA - NA Sex Assigned At : Social History Observation Description Sex Assigned At Unknown alcohol Question Answer Notes Did you have a drink containing alcohol in the p ast year? 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) Active confirmed Anxiety disorde r (609224482) Problem Hypersomnia, unspecified (G47.10) Active confirmed Hypersomnia (39757612) Problem Other idiopathic scoliosis, site unspecified (M41.20) Active confirmed Idiopathic scoliosis AND/OR kyphoscoliosis (03669490) Problem Neuromuscular scoliosis, 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 Neuromuscula r scoliosis (794771212) Problem Spinal stenosis, lumbar region with neurogenic claudication (M48.062) Active confirmed Neurogenic claudication (103400250) Problem Vertebrogenic low back pain (M54.51) Active confirmed Pain in lumbar spine (805205051) Encounters Encounter Location Date [facility] [address] [place], [place] [id number] 08/24/2022 Yin Prajapati Vertebrogenic low ba ck pain M54.51 ; Spondylosis without myelopathy or radiculopathy, lumbar region M47.816 ; Sacroiliitis, not elsewhere classified M46.1 ; Spinal stenosis, lumbar region with neurogenic claudication M48.062 ; Neuromuscular scoliosis, thoracolumbar region M41.45 ; Hypersomnia, unspecified G47.10 and 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 helper (current) 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 of opiate analgesic Z79.891 [facility] [place] [address] [place], [place] [id number] 09/23/2022 Ciro Fang Sacroiliitis, not elsewhere classified M46.1 ; Other specified anxiety disorders F41.8 ; Vertebrogenic low back pain M54.51 ; Spinal stenosis, lumbar region with neurogenic claudication M48.062 ; Spondylosis without myelopathy or radiculopathy, lumbar region M47.816 ; Neuromuscular scoliosis, thoracolumbar region M41.45 ; Hypersomnia, unspecified G47.10 and termite helper (current) use of opiate analgesic Z79.891 [facility] [address] [place] [address] 10/12/2022 Ciro Fang Sacroiliitis, not elsewhere classified M46.1 and Other specified anxiety disorders F41.8 [facility] [place] [address] [place] [id number] 10/26/2022 Ciro Fang ASSESSMENTS Encounter Date Diagnosis Assessment Notes Treatment Notes Treatment Clinical Notes 08/24/2022 Spondylosis without myelopathy or radiculopathy, lumbar region (ICD-10 - M47.816) 08/24/2022 Vertebrogenic low back pain (ICD-10 - M54.51) Chronic axial lumbosacral spine pain. Prior conservative treatment as noted, below. Prior minimally invasive interventional spine treatment via other providers with history of no significant beneit. Oral opioid use with history of benefit. Consider treatment options pending evaluation by Dr. Fang 09/23/2022 Sacroiliitis, not elsewhere classified (ICD-10 - M46.1) Plan bilateral SI joint steroid / local anesthetic injections. Consider sacral denervation procedure via RFA if diagnostic blocks without lasting steroid efficacy noted. Risks, benefits, and alternatives reviewed with patient. Questions answered to the patient's reported satisfaction. Preparation for procedure reviewed with patient; printed instructions given. After discussion of the bleeding risks of continuing the anticoagulant for procedure(s) versus the risks of discontinuing the anticoagulant in advance of procedure(s), patient elected to proceed with procedure(s) without discontinuing anticaogulant 09/23/2022 Other specified anxiety disorders (ICD-10 - F41.8) Plan moderate IV sedation as needed wtih midazolam. Patient has reported of a prior interventional treatment in [place] whereby no IV sedation was utilized and the patient ended up having an upward spike in her blood pressure. Subsequent procedures were performed with IV sedation with no untoward effects as per patient report 10/12/2022 Sacroiliitis, not elsewhere classified (ICD-10 - M46.1) Plan bilateral SI joint local anesthetic / steroid injection 10/12/2022 Other specified anxiety disorders (ICD-10 - F41.8) Plan moderate IV sedation with midazolam and/or fentanyl 08/24/2022 Sacroiliitis, not elsewhere classified (ICD-10 - M46.1) 09/23/2022 Vertebrogenic low back pain (ICD-10 - M54.51) Chronic axial lumbosacral spine pain. Prior conservative treatment as noted, below. Prior surgical evaluation by Dr. Galindo as per patient report. Patient met once with Dr. Galindo and patient does not recall receiving any information on surgical options. Recommended patient return to Dr. Galindo for such information. Patient was apparently referred to Dr. Garrison and no interventional spine treatment was offered patient per patient report. Dr. Garrison just did a shoulder injection that did not help very much. Recommended patient discuss with PCP orthopedic options for treatment of shoulder pain. Prior minimally invasive interventional spine treatment via another provider in [place] with history of benefit that had since waned. Oral opioid use with history of benefit. Patient has utilized the medication sparingly 09/23/2022 Spinal stenosis, lumbar region with neurogenic claudication (ICD-10 - M48.062) Patient has been notified that this provider will not offer an LESI (due to Medicare regulation changes - a prior scope of practice change by this provider). Patient stated understanding that a referral to another provider could be provided if an LESI were to be desired. Have briefly discussed DCS trial. Patient stated that the provider in [place] had discussed this technology with the patient (was deferred) 08/24/2022 Spinal stenosis, lumbar region with neurogenic claudication (ICD-10 - M48.062) 08/24/2022 Neuromuscular scoliosis, thoracolumbar region (ICD-10 - M41.45) 09/23/2022 Spondylosis without myelopathy or radiculopathy, lumbar region (ICD-10 - M47.816) Will consider possible blocks and RFA 08/24/2022 Hypersomnia, unspecified (ICD-10 - G47.10) 09/23/2022 Neuromuscular scoliosis, thoracolumbar region (ICD-10 - M41.45) 09/23/2022 Hypersomnia, unspecified (ICD-10 - G47.10) 08/24/2022 penitentiary (current) use of opiate analgesic (ICD-10 - Z79.891) Patient was given a copy of the Treatment Agreement, signed by patient on 08/03/22. Urine Tox screen today; random screens per protocol. Opioid Risk Tool score 4 - moderate risk Confirmation order for tramadol 09/23/2022 penitentiary (current) use of opiate analgesic (ICD-10 - Z79.891) Patient was given a copy of the Treatment Agreement, signed by patient on 08/03/22. Opioid Risk Tool score 4 - moderate risk 08/24/2022 Other Continue above medication as currently prescribed via another provider. Case reviewed with Dr. Fang. Treatment plan approved 09/23/2022 Other PLAN OF TREATMENT No Information Insurance Providers Payer Name Payer Address Payer Phone Subscriber Number Group Number Insured Name Patient Relationship to Insured Coverage Start Date Coverage End Date [employer] Medicare Part B Claims Department [address] [address] [place] [address] [id number] Shanna Boucher Self - patient is the insured [employer] [address] [place] [address] [id number] Shanna Boucher Self - patient is the insured MEDICAL (GENERAL) HISTORY Medical History History ICD Code Chronic pain Low back pain Degenerative arthritis of lumbar spine Scoliosis (and kyphoscoliosis), idiopath ic Shoulder pain Rotator cuff arthropathy of left shoulde r Rheumatoid arthritis Afib Spondylosis without myelopathy or radicu lopathy, lumbar region Angina pectoria Anxiety and depression GERD Hyperlipidemia Hypertension Hypothyroidism Menopause Psychiatric care Recurrent UTI Left adnexal cystic lesion noted upon re view of prior imaging study report Surgical History Surgery Date(Month/Year) Tonsillectomy Foot surgery, right Hysterectomy, performed in [place], [place] [address] Intestinal surgery, 1984 Open heart surgery, placement of stent, peformed in [place], [place], 2000 Heart stopped (Afib), performed in [place], [place], 2015 Placement of cardiac stent, performed in [place], [place]
[2023-04-10 16:10] LABS: Troponin 5 2HR 24.04 ng/L (0-10)
[2023-04-10 16:11] LABS: Troponin 5 2HR Delta 6.04 ABS# (0-10)
--- NOTE | 2023-04-10 16:16 | ECG_ITS ---
[facility] Test Date: 2023-04-10 Pat Name: Shanna Lang Department: Room: [facility] Gender: Female Admissions Consultant: : 1935 Requested By: Brady Hunt Order Number: [id number] Dean MD: Toni Galvez M.D. Measurements Intervals [place] Rate: 88 P: 0 W[place]: 0 QRS: 22 QRSD: 81 T: 83 QT: 368 QTc: 445 Interpretive Statements ATRIAL FIBRILLATION NONSPECIFIC ST & T-WAVE ABNORMALITY ABNORMAL RHYTHM ECG Compared to ECG 04/10/2023 13:21:29 No significant changes Electronically Signed On 04-11-2023 19:57:37 CDT by Toni Galvez M.D. [id number]
--- NOTE | 2023-04-10 16:18 | USCV_ITS ---
Shanna Lang Age: 87 Gender: F : 1935 Exam Date: 04/10/2023 19:31 Ordering Phys: Toni Galvez MD ([email or web address]) Technologist: ALLIE [place] [facility] [place]: afib with rvr BP: / HR: 68 Rhythm: Sinus Technical Quality: Adequate MEASUREMENTS (Male / Female) Normal Values 2D ECHO LV Diastolic Diameter PLAX 4.2 cm 4.2 - 5.9 / 3.9 - 5.3 cm LV Systolic Diameter PLAX 2.2 cm IVS Diastolic Thickness 1.1 cm 0.6 - 1.0 / 0.6 - 0.9 cm IVS Systolic Thickness 1.4 cm LVPW Diastolic Thickness 1.0 cm 0.6 - 1.0 / 0.6 - 0.9 cm LVPW Systolic Thickness 1.4 cm LVOT Diameter 1.9 cm LV Ejection Fraction 2D Teich 78.6 % LV Ejection Fraction MOD 2C 42.4 % LV Ejection Fraction 2C AL 40.8 % LA Diameter 3.2 cm M-MODE Aortic Annulus Diameter 2.7 cm LA Ao Ratio MM 1.2 MV E Point Septal Separation 0.3 cm DOPPLER MV Area PHT 6.3 cm squared Mitral E to A Ratio 1.5 MV E' Velocity 64.0 cm/s Mitral E to MV E' Ratio 12.2 Mitral E to LV E' Lateral Ratio 10.5 Mitral E to LV E' Septal Ratio 14.6 TR Peak Velocity 333.3 cm/s TR Peak Gradient 44.4 mmHg Right Atrial Pressure 9.0 mmHg Pulmonary Artery Systolic Pressu 53.4 mmHg PV Peak Velocity 66.0 cm/s FINDINGS Left Ventricle Normal left ventricular size with a borderline low ejection fraction of 50%. Mild diffuse hypokinesia of the left ventricle Right Ventricle The right ventricle is normal in size and function. Right Atrium Mildly increased right atrial size. Left Atrium Mildly increased left atrial size. Mitral Valve Moderate mitral annular calcification. Mild mitral valve regurgitation. Aortic Valve Thickened aortic valve. Tricuspid Valve Moderate tricuspid valve regurgitation. Estimated pulmonary artery peak systolic pressure 56 mmHg Pulmonic Valve Trace pulmonary valve regurgitation. Pericardium No pericardial effusion. Aorta Normal aortic annulus size. IVC Normal inferior vena cava. CONCLUSIONS Normal left ventricular size with a borderline low ejection fraction of 50%. Mild diffuse hypokinesia of the left ventricle. Mild biatrial enlargement. Moderate mitral annular calcification. Mild mitral valve regurgitation. Thickened aortic valve. Moderate tricuspid valve regurgitation. Moderate pulmonary hypertension with an estimated pulmonary artery peak systolic pressure 56 mmHg. Thickened aortic valve. Trace pulmonary valve regurgitation. There is no pericardial effusion. There are no intracardiac masses. No similar previous studies are available for comparison Dr Toni Galvez MD [facility] (Electronically Signed) Final Date: 11 April 2023 13:36 S
[2023-04-10] MEDS: etomidate 2 mg/mL INJ SDV 10 mL 8.5 MG IVP (16:19)
--- NOTE | 2023-04-10 16:46 | P.HP_ITS ---
Providers/Chief Complaint Admitting Physician: Ilan Dixon Primary Care Provider: PARISH Medel Chief Complaint: WEAKNESS; FEVER History of Present Illness 87-year-old lady with history of atrial fibrillation on sotalol, Eliquis, CAD, CABG, stenting, HTN, HLD, hypothyroidism, rheumatoid arthritis, other comorbidities started experiencing fatigue, generalized weakness, palpitations starting yesterday morning. She thought that she had developed COVID. Her cond ition did not improve and she came in for evaluation to ER today. In ER found to be in atrial fibrillation with RVR, heart rates into 140s-150s. Blood pressure soft 102/63. Did not respond to metoprolol pushes, started on esmolol drip. Chest x-ray obtained and unremarkable apart from sternotomy wires. Respiratory viral panel obtained unremarkable. UA with 5-10 WBC, negative leukocyte esterases, negative nitrate. Regarding CODE STATUS she was expressed she would be okay with attempted resus citation/CPR in case necessary. In ER remains in persistent A-fib with RVR, condition deteriorated with hypotension, MAP 58, persistent tachycardia, with unstable tachycardia, visited at the same time by cardiology, we discussed with her son regarding emergent DC cardioversion. She had missed her doses of Eliquis this morning last night, discussed the risk of complication, arrhythmia, cardiopulmonary arrest, CVA and other. DC cardioversion x3 total performed by ER physician after premedication with etomidate. Additionally received 150 mg of amiodarone, 50 mcg of phenylephrine due to hypotension. Converted to sinus rhythm, MAP 74 mmHg. To continue on amiodarone drip. Stat echo requested. Review of Systems General: Reports: ROS unobtainable due to medical condition, ROS unobtainable due to mental status and Other (Brief review of systems obtained from her and her son. ) Const: Reports: fatigue and other (Did not have fever but felt generally weak, thought that she was developing) Eyes: Denies: change in vision, eye discomfort or eye redness Card: Reports: palpitations; Denies: chest pain, edema, pre-syncope or dyspnea on exertion Resp: Denies: dyspnea, productive cough, change in phlegm color or hemoptysis GI: Denies: abdominal pain, nausea, vomiting, diarrhea, constipation, hematochezia or melena : Denies: flank pain or urinary frequency Skin/Breast: Denies: rash or new lesions Neuro: Denies: headache(s) Medications/Allergies Home Medications Medication Instructions Recorded Confirmed Last Taken Type ascorbic acid (vitamin C) 500 mg 500 mg PO DAILY 09/01/21 04/10/23 02/26/22 H istory capsule calcium carbonate 600 mg calcium 600 mg PO DAILY 09/01/21 04/10/23 02/26/22 H istory (1,500 mg) tablet cholecalciferol (vitamin D3) 50 50 mcg PO DAILY PRN unknown 09/01/21 04/10/23 02/26/22 History mcg (2,000 unit) capsule potassium gluconate 595 mg (99 mg) 595 mg PO DAILY PRN unknown 09/16/21 04/10/23 02/26/22 History tablet Back brace #1 ea 11/20/21 04/10/23 02/26/22 Rx tramadol 50 mg tablet 50 mg PO BID PRN pain #60 tabs 12/22/21 04/10/23 02/26/22 Rx nitroglycerin 400 mcg/spray 1 spray translingual Q5M PRN chest 02/09/22 04/10/23 02/26/22 Rx translingual pain #4.9 grams doughnut cushion #1 ea 04/07/22 04/10/23 Unknown Rx accommodative orthotic #1 ea 04/15/22 04/10/23 Unknown Rx evolocumab 140 mg/mL subcutaneous 140 mg SUBCUT Q14D #2 mL 05/21/22 04/10/23 Unknown Rx pen injector (Felicita Antonio) mecobalamin (vitamin B12) 1,000 1,000 mcg PO DAILY #60 tabs 07/14/22 04/10/23 Unknown Rx mcg chewable tablet sotalol 80 mg tablet 40 mg PO BID #90 tabs 07/14/22 04/10/23 04/09/23 Rx prednisone 5 mg tablet 5 mg PO DAILY PRN Pain #60 tabs 10/14/22 04/10/23 Unknown Rx folic acid 1 mg tablet 1 mg PO TID #270 tabs 11/25/22 04/10/23 04/09/23 Rx apixaban 2.5 mg tablet (Eliquis) 2.5 mg PO BID #180 tabs 12/04/22 04/10/23 04/09/23 Rx zinc oxide 40 % topical ointment 1 applic topical TID PRN skin 01/19/23 04/10/23 Unknown Rx irritation 30 days #113 grams furosemide 20 mg tablet 20 mg PO QAM 01/27/23 04/10/23 04/09/23 History see pharmacy comment gabapentin 100 mg capsule 100 mg PO BID #180 caps 01/27/23 04/10/23 04/09/23 Rx Colon Health 1 cap PO QAM 04/10/23 04/10/23 Unknown History Focus Factor 1 tab PO DAILY 04/10/23 04/10/23 Unknown History Vinia Red Grape Powder Capsule 1 cap PO DAILY 04/10/23 04/10/23 Unknown History Viviscal 1 tab PO DAILY 04/10/23 04/10/23 Unknown History conjugated estrogens 0.3 mg tablet 0.3 mg PO QAM 04/10/23 04/10/23 04/09/23 History (Premarin) lactase 3,000 unit tablet (Lactaid) 3,000 - 9,000 unit PO DAILY PRN 04/10/23 04/10/23 Unknown History unknown levothyroxine 88 mcg capsule 88 mcg PO QAM 04/10/23 04/10/23 04/09/23 History (Tirosint) loperamide-simethicone 2 mg-125 mg 1 tab PO PRN 04/10/23 04/10/23 Unknown History tablet (Imodium Multi-Symptom Relief) methotrexate sodium 2.5 mg tablet 10 mg PO .ON AND Wed04/10/23 04/10/23 Unknown History zmclpyuk-nub-fjzq-FA-Ca carb-vit K 1 tab PO DAILY 04/10/23 04/10/23 Unknown History 18 mg iron-400 mcg-500 mg tablet lkljadlq-ayw-cjdlo1 250 mg-dha 90 1 cap PO DAILY 04/10/23 04/10/23 Unknown History mg-epa 160 pm-teea-mdkp-zeax capsule (Ocuvite Adult 50 Plus) omeprazole 40 mg capsule,delayed 40 mg PO QAM 04/10/23 04/10/23 04/09/23 History release Allergies Allergy/AdvReac Type Severity Reaction Status Date / Time lactose Allergy Unknown Verified 04/10/23 13:44 Sulfa (Sulfonamide Allergy ADR-Vomitin Verified 04/10/23 13:44 Antibiotics) g PFSH Acute PFSH: Medical History Afib 2020 Anal sphincter incompetence Angina pectoris Anxiety and depression CAD (coronary artery disease) GERD (gastroesophageal reflux disease) History of melanoma History of nonmelanoma skin cancer Hyperlipidemia Hypertension Hypothyroidism Menopause Recurrent urinary tract infection Rheumatoid arthritis Reported hx by pt Scoliosis Scoliosis (and kyphoscoliosis), idiopathic Surgical History History of hand surgery History of hysterectomy History of intestinal surgery History of open heart surgery 2000 History of tonsillectomy Hx of foot surgery right foot Family History Mother Diabetes Other Parkinson disease Social History Smoking and tobacco status: never smoked Alcohol intake: never Substance/Drug Use: never Adopted: No Caregiver/support person: No Lives independently: No Household members: family service: No Sexually active: No Do you think of yourself as: Straight/Heterosexual Current gender identity: Female Vitals/I&O/Wt Last Vital Signs Temp 98.3 F 04/10/23 11:01 Pulse 77 04/10/23 16:23 Resp 19 H 04/10/23 13:42 BP 112/56 04/10/23 16:23 Pulse Ox 97 04/10/23 16:23 O2 Del Method Room Air 04/10/23 16:23 04/10/23 04/10/23 04/10/23 06:59 14:59 22:59 Intake Total 1068.606 / 1068.606 Balance 1068.606 / 1068.606 Weight last 48 hrs Weight 56.699 kg Physical Exam Narrative: Accompanied by her son. Const: GENERAL APPEARANCE: cooperative ORIENTATION/CONSCIOUSNESS: Yes lethargic HENMT: COMMON NORMALS: oropharynx normal Neck/C-Spine: COMMON NORMALS: no JVD Resp: COMMON NORMALS: normal respiratory effort and clear to auscultation bilaterally AUSCULTATION: clear to auscultation bilaterally Cardio: COMMON NORMALS: no JVD, regular rhythm, S1 normal heart sound present, S2 normal heart sound present and No murmurs present (Cardio) RHYTHM: regular rhythm HEART SOUNDS: S1 normal heart sound present and S2 normal heart sound present GI: COMMON NORMALS: Normal to inspection, nondistended, normoactive bowel sounds present, Soft to palpation and non-tender PALPATION: Yes Soft to palpation Extremity: COMMON NORMALS: no joint enlargement GENERAL: Yes edema (Trace) Neuro: COMMON NORMALS: moves all extremities SENSORIUM/ORIENTATION: Yes alert Skin: COMMON NORMALS: no rashes or lesions noted GENERAL SKIN EXAM: no rashes or lesions noted and ecchymosis OTHER: Thin, fragile. Data 04/10/23 12:38 04/10/23 12:38 Micro: Microbiology 04/10/23 13:35 Blood Culture - Preliminary Blood SPECIMEN COLLECTED 04/10/23 12:38 Blood Culture - Preliminary Blood SPECIMEN COLLECTED A&P Assessment and plan (1) Atrial fibrillation with rapid ventricular response: Generalized weakness, fatigue, palpitations started yesterday morning. Thought she was developing COVID. Respiratory viral panel obtained in ER resulting negative. Chest x-ray remarkable. UA unremarkable. No leukocytosis. Afebrile, no new rashes or lesions. No suggestion of acute infectious trigger. Troponin EKG series started in ER, noted atrial fibrillation, mild elevation of troponin baseline 18, 2-hour 24. TSH 1.03. Potassium, magnesium WNL. Renal, liver function WNL. No unilateral extremity swelling, no cough or hemoptysis, saturating well on room air. During my visit with cardiogenic shock, with unstable tachycardia set up for emergent cardioversion together with cardiology and ER physician, received 150 mg dose of amiodarone. Converted to sinus rhythm. Continue amiodarone drip. Cardiology at bedside, requested stat echocardiogram. By bedside ultrasound does appear to have decrease in ejection fraction down to 40s. Discussed with her son, this is lower than prior. Per discussion with cardiology switching anticoagulation for now to Lovenox. Will benefit from further cardiac risk stratification with regards to myocardial perfusion. Consideration of Lexiscan. At risk of life-threatening arrhythmia, admission to ICU. Monitor on telemetry. Levophed drip prepared in case needed. Follow-up chemistry, electrolytes, renal function. CBC. Continue sotalol. Check serum cortisol. PPI. (2) Atherosclerosis of coronary artery of [place] heart without angina pectoris: History of CABG, prior stents. 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 At risk of CHF. Caution with resuscitation. Plan HTN, cardiogenic shock in ER, monitor blood sugars. HLD, hypothyroidism, continue levothyroxine rheumatoid arthritis, appears is on as needed prednisone by rheumatology. Check serum cortisol. Methotrexate. Attestations Medical Necessity Statement*: Admission of over 2 midnights anticipated for assessment management of cardiogenic shock after unstable tachycardia, atrial fibrillation despite outpatient treatment with sotalol in a lady of advanced age, noted new cardiomyopathy. Coding Level of Care Code Critical Care >/= 30 minutes Critical care time (in minutes): 65 The high probability of a clinically significant, sudden or life threatening deterioration, as referenced in this documentation, required my full and direct attention, intervention and personal management. The critical care time shown is in addition to time spent performing any reported separately billable procedures and includes the following: [x] Data and vital sign review and interpretation [x ] Patient assessment, examination and intervention [x] Medication orders and management [x] Patient/Family updates as able [x] Care Coordination and D ocumentation. Diagnoses Atrial fibrillation with rapid ventricular response I48.91 Atherosclerosis of coronary artery of [place] heart without angina pectoris I25.10
[2023-04-10] MEDS: enoxaparin 60 mg/0.6 mL Syringe 56 MG SUBCUT (17:47)
[2023-04-10] MEDS: sotalol 80 mg Tablet 40 MG PO (17:47)
[2023-04-10 19:26] LABS: Troponin 5 6HR 40.62 ng/L (0-10)
[2023-04-10 19:31] LABS: Troponin 5 6HR Delta 22.62 ng/L (0-12)
[2023-04-10 21:14] LABS: Cortisol Random 5.56 ug/dL (2.47-19.5)
[2023-04-11] VITALS (37 sets, daily range): BP systolic 95–123; BP diastolic 43–61; PULSE 54–76; RESP 14–42; TEMP 36.6–37.2; O2SAT 92–100
[2023-04-11 03:21] LABS: Basophils % 0.2 %; Eosinophils % 0.3 %; Hematocrit 31.6 % (37.0-47.0); Hemoglobin 9.8 g/dL (11.5-15.3); Lymphocytes # 0.6 10^3/uL (0.8-4.8); Lymphocytes % 5.5 %; Mean Corpuscular Hemoglobin 33.2 pg (28.0-34.0); Mean Corpuscular Volume 107.1 fl (81-99); Mean Platelet Volume 9.9 fL (7.4-10.4); Monocytes # 0.3 10^3/uL (0.2-0.9); Monocytes % 2.8 %; Neutrophils # 9.82 10^3/uL (1.8-7.7); Neutrophils % 90.5 %; Nucleated Red Blood Cells % 0 %; Platelet Count 156 10^3/cmm (130-400); Red Blood Count 2.95 10^6/uL (4.1-5.3); Red Cell Distribution Width 15.8 % (12.1-15.1); White Blood Count 10.9 10^3/uL (4.0-10.0)
[2023-04-11 03:40] LABS: Anion Gap 14.4 (5-19); Blood Urea Nitrogen 22 mg/dL (8-23); Calcium 6.8 mg/dL (8.5-10.5); Carbon Dioxide 19 mmol/L (22-29); Chloride 108 mmol/L (98-107); Glucose 119 mg/dL (65-115); Osmolality Calculated 288 mOsm/kg (285-295); Potassium 4.4 mmol/L (3.5-5.1); Sodium 137 mmol/L (136-145)
[2023-04-11] MEDS: enoxaparin 60 mg/0.6 mL Syringe 56 MG SUBCUT (06:02)
[2023-04-11] MEDS: FUROsemide 20 mg Tablet PO (06:02)
[2023-04-11] MEDS: pantoprazole DR 40 mg Tablet PO (06:02)
[2023-04-11] MEDS: levothyroxine 88 mcg Tablet PO (06:02)
[2023-04-11] MEDS: aspirin 81 mg EC Tablet PO (09:42)
[2023-04-11] MEDS: sotalol 80 mg Tablet 40 MG PO ×2 (09:42→17:25)
--- NOTE | 2023-04-11 09:55 | P.PN_ITS ---
Subjective Subjective: The patient continues to remain in sinus rhythm. No chest pain or shortness of breath. Telemetry shows normal sinus rhythm and occasional sinus bradycardia. The IV amiodarone was discontinued. Medications: Medication Review Details: Current Medications Acetaminophen (Acetaminophen 325 Mg Tablet) 650 mg PO Q6H PRN PRN Reason: Mild/Mod Pain Or Temp >/= 101 Aspirin (Aspirin 81 Mg Ec Tablet) 81 mg PO DAILY [facility] Last Admin: 04/11/23 09:42 Dose: 81 mg Atorvastatin Calcium (Atorvastatin 40 Mg Tablet) 40 mg PO BEDTIME [facility] Enoxaparin Sodium (Enoxaparin 60 Mg/0.6 Ml Syringe) 56 mg SUBCUT Q24H [facility] Furosemide (Furosemide 20 Mg Tablet) 20 mg PO QAM [facility] Last Admin: 04/11/23 06:02 Dose: 20 mg Levothyroxine Sodium (Levothyroxine 88 Mcg Tablet) 88 mcg PO QAM [facility] Last Admin: 04/11/23 06:02 Dose: 88 mcg Non-Formulary Medication (Potassium Gluconate) 595 mg PO DAILY PRN PRN Reason: unknown Ondansetron HCl (Ondansetron 2 Mg/Ml Sdv 2 Ml) 4 mg IVP Q8H PRN PRN Reason: vomiting, or N/V if npo Pantoprazole Sodium (Pantoprazole Dr 40 Mg Tablet) 40 mg PO QAM [facility] Last Admin: 04/11/23 06:02 Dose: 40 mg Sotalol HCl (Sotalol 80 Mg Tablet) 40 mg PO BID [facility] Last Admin: 04/11/23 17:25 Dose: 40 mg Zinc Oxide (Zinc Oxide Oint 30 Gm) 1 applic TOPICAL TID PRN PRN Reason: skin irritation Vitals/I&O/Wt Last Vital Signs Temp 99.0 F 04/11/23 06:00 Pulse 71 04/11/23 09:00 Resp 30 H 04/11/23 09:00 BP 108/51 04/11/23 09:00 Pulse Ox 97 04/11/23 09:00 O2 Del Method Nasal Cannula 04/11/23 06:00 O2 Flow Rate 3 04/11/23 06:00 04/10/23 04/11/23 04/11/23 22:59 06:59 14:59 Intake Total 2168.606 / 2168.606 1098 / 3266.606 Balance 2168.606 / 2168.606 1098 / 3266.606 Weight last 48 hrs Weight 138 lb 12.8 oz Weight 125 lb Physical Exam Narrative: GENERAL: The patient is alert and oriented times three. Not in any acute distress. HEENT: No significant pallor, icterus or lymphadenopathy.Oral cavity: There are no mucous membrane lesions. NECK: Trachea appears to be central. No masses noted. No JVD or thyromegaly appreciated. RESPIRATORY: Chest is symmetrical. No intercostals muscle retraction or any accessory muscle activation. There is no chest wall tenderness. Breath sounds are heard bilaterally. No rales or rhonchi heard. No evidence of any consolidation. BREASTS: Deferred. HEART: The heart sounds are normal. No S3 or S4. No significant murmurs. No pericardial rub ABDOMEN: No vessel pulsations or distention. No tenderness. No organomegaly appreciated. Bowel sounds are normally heard. : Deferred. RECTAL: Deferred. LYMPHATIC: No lymphadenopathy noted in the neck. EXTREMITIES: No edema or cyanosis. No clubbing. MUSCULOSKELETAL: No acute joint deformities or swelling SKIN: There are no significant rashes or ecchymosis NEUROPSYCHIATRIC: The patient is alert and oriented x3. Appears to be in a good mood. No tremors or rigidity noted. Data 04/11/23 03:04 04/11/23 03:04 Other Labs: Laboratory Last Values WBC 10.9 10^3/uL (4.0-10.0) H 04/11/23 03:04 RBC 2.95 10^6/uL (4.1-5.3) L 04/11/23 03:04 Hgb 9.8 g/dL (11.5-15.3) L 04/11/23 03:04 Hct 31.6 % (37.0-47.0) L 04/11/23 03:04 MCV 107.1 fl (81-99) H 04/11/23 03:04 MCH 33.2 pg (28.0-34.0) 04/11/23 03:04 MCHC 31.0 g/dL (30.0-36.0) 04/11/23 03:04 RDW 15.8 % (12.1-15.1) H 04/11/23 03:04 Plt Count 156 10^3/cmm (130-400) 04/11/23 03:04 MPV 9.9 fL (7.4-10.4) 04/11/23 03:04 Neut % (Auto) 90.5 % 04/11/23 03:04 Lymph % (Auto) 5.5 % 04/11/23 03:04 Hunt % (Auto) 2.8 % 04/11/23 03:04 Eos % (Auto) 0.3 % 04/11/23 03:04 Baso % (Auto) 0.2 % 04/11/23 03:04 Neut # (Auto) 9.82 10^3/uL (1.8-7.7) H 04/11/23 03:04 Lymph # (Auto) 0.6 10^3/uL (0.8-4.8) L 04/11/23 03:04 Hunt # (Auto) 0.3 10^3/uL (0.2-0.9) 04/11/23 03:04 Eos # (Auto) 0.0 10^3/uL (0.0-0.8) 04/11/23 03:04 Baso # (Auto) 0.0 10^3/uL (0.0-0.1) 04/11/23 03:04 Nucleated RBC % (auto) 0 % 04/11/23 03:04 Nucleated RBCs # 0.0 /100WBC 04/11/23 03:04 Sodium 137 mmol/L (136-145) 04/11/23 03:04 Potassium 4.4 mmol/L (3.5-5.1) 04/11/23 03:04 Chloride 108 mmol/L (98-107) H 04/11/23 03:04 Carbon Dioxide 19 mmol/L (22-29) L 04/11/23 03:04 Anion Gap 14.4 (5-19) 04/11/23 03:04 BUN 22 mg/dL (8-23) 04/11/23 03:04 Creatinine 1.2 mg/dL (0.5-0.9) H 04/11/23 03:04 GFR Calculation Not Reportable 04/11/23 03:04 Glucose 119 mg/dL (65-115) H 04/11/23 03:04 Calculated Osmolality 288 mOsm/kg (285-295) 04/11/23 03:04 Lactic Acid 1.2 mmol/L (0.5-2.2) 04/10/23 12:38 Calcium 6.8 mg/dL (8.5-10.5) L 04/11/23 03:04 Magnesium 2.2 mg/dL (1.7-2.3) 04/10/23 12:38 Total Bilirubin 0.9 mg/dL (0.15-1.2) 04/10/23 12:38 AST 22 U/L (0-32) 04/10/23 12:38 ALT 13 U/L (0-33) 04/10/23 12:38 Alkaline Phosphatase 50 U/L (35-105) 04/10/23 12:38 Troponin T Baseline 18 ng/L (0-10) H 04/10/23 12:38 Troponin T 120 Minute 24.04 ng/L (0-10) H 04/10/23 15:19 Delta Troponin T 6.04 ABS# (0-10) 04/10/23 15:19 Troponin T Hi Sens 6Hr 40.62 ng/L (0-10) H 04/10/23 18:28 Troponin T Hi Sens 6Hr Delta 22.62 ng/L (0-12) H* 04/10/23 18:28 C-Reactive Protein 64.9 mg/L (0.0-4.9) H 04/10/23 12:38 Total Protein 6.5 g/dL (6.6-8.7) L 04/10/23 12:38 Albumin 3.8 g/dL (3.5-5.2) 04/10/23 12:38 Globulin 2.7 g/dL (1.3-4.6) 04/10/23 12:38 Procalcitonin 0.48 ng/mL (0-0.5) 04/10/23 12:38 TSH 1.03 uIU/mL (0.27-4.20) 04/10/23 12:38 Random Cortisol 5.56 ug/dL (2.47-19.5) 04/10/23 18:28 Urine Color Yellow (Yellow) 04/10/23 11:43 Urine Appearance Sl hazy (CLEAR) A 04/10/23 11:43 Urine pH 8 (5-7) H 04/10/23 11:43 Ur Specific [place] 1.005 (1.005-1.030) 04/10/23 11:43 Urine Protein Neg (Negative) 04/10/23 11:43 Urine Glucose (UA) Norm (Normal) 04/10/23 11:43 Urine Ketones Negative (Negative) 04/10/23 11:43 Urine Blood Neg (Negative) 04/10/23 11:43 Urine Nitrate Negative (Negative) 04/10/23 11:43 Urine Bilirubin Neg (Negative) 04/10/23 11:43 Prot Sulfosalicylic Acd Negative (Negative) 04/10/23 11:43 Urine Urobilinogen Norm mg/dL (Negative) 04/10/23 11:43 Ur Leukocyte Esterase Negative (Negative) 04/10/23 11:43 Urine RBC None /hpf (0-2) 04/10/23 11:43 Urine WBC 5-10 /hpf (0-5) H 04/10/23 11:43 Ur Squamous Epith Cells 0-4 /hpf (0-5) H 04/10/23 11:43 Amorphous Sediment Not Reportable 04/10/23 11:43 Urine Bacteria Trace /hpf (NONE) 04/10/23 11:43 Nasal Influ A H1 2009 PCR Not detected (NOT DETECT) 04/10/23 11:34 Adenovirus (PCR) Not detected (NOT DETECT) 04/10/23 11:34 C. pneumoniae DNA (PCR) Not detected (NOT DETECT) 04/10/23 11:34 Coronavirus 229E (PCR) Not detected (NOT DETECT) 04/10/23 11:34 Human Metapneumovir PCR Not detected (NOT DETECT) 04/10/23 11:34 Influenza A (H1) PCR Not detected (NOT DETECT) 04/10/23 11:34 Influenza A (H3) PCR Not detected (NOT DETECT) 04/10/23 11:34 Influenza Type A (PCR) Not detected (NOT DETECT) 04/10/23 11:34 Influenza Type B (PCR) Not detected (NOT DETECT) 04/10/23 11:34 M. pneumoniae (PCR) Not detected (NOT DETECT) 04/10/23 11:34 Parainfluenza 1 (PCR) Not detected (NOT DETECT) 04/10/23 11:34 Parainfluenza 2 (PCR) Not detected (NOT DETECT) 04/10/23 11:34 Parainfluenza 3 (PCR) Not detected (NOT DETECT) 04/10/23 11:34 Parainfluenza 4 (PCR) Not detected (NOT DETECT) 04/10/23 11:34 RSV Type A (PCR) Not detected (NOT DETECT) 04/10/23 11:34 RSV Type B (PCR) Not detected (NOT DETECT) 04/10/23 11:34 Entero/Rhino (PCR) Not detected (NOT DETECT) 04/10/23 11:34 SARS-CoV-2 (PCR) Not detected (NOT DETECT) 04/10/23 11:34 Micro: Microbiology 04/10/23 13:35 Blood Culture - Preliminary Blood SPECIMEN COLLECTED 04/10/23 12:38 Blood Culture - Preliminary Blood SPECIMEN COLLECTED Other data: EKG from today revealed a sinus bradycardia with a rate of [address]-T changes. Features of LVH by voltage criteria. Echocardiogram from yesterday ?Normal left ventricular size with a borderline low ejection ?fraction of 50%.? ?Mild diffuse hypokinesia of the left ventricle. ?Mild biatrial enlargement. ?Moderate mitral annular calcification. Mild mitral valve ?regurgitation. ?Thickened aortic valve. ?Moderate tricuspid valve regurgitation.? ?Moderate pulmonary hypertension with an estimated pulmonary ?artery peak systolic pressure 56 mmHg. ?Thickened aortic valve. ?Trace pulmonary valve regurgitation. ?There is no pericardial effusion. ?There are no intracardiac masses. ?No similar previous studies are available for comparison A&P Assessment and plan (1) Atrial fibrillation with rapid ventricular response: Patient currently remains in a sinus rhythm. She is somewhat bradycardic at this point. I may hold off on the sotalol. Consider starting her on sotalol 80 mg in the morning and 40 mg in the evening, if the heart rate is acceptable. 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 Since she has no specific symptoms, may continue the current risk modifying measures. (3) Atherosclerosis of coronary artery of [place] heart without angina pectoris: Patient with history of coronary disease, status post coronary bypass [id number], CEVALLOS to the LAD in 2000. Status post inferior wall TX in 2016, thrombotic occlusion of the RCA, underwent thrombectomy and stent placement. Procedure was complicated with V-fib arrest in the [employer]. Had a PCI of the obtuse marginal artery lesion in January 2021, complicated with wire perforation of the distal artery treated by prolonged balloon inflation. Her troponin T at 6 hours had a delta of 22. This could be from the atrial fibrillation/cardioversion. However the coronary ischemia cannot be excluded Consider Myocardial perfusion imaging tomorrow (4) Hypertension: Currently normotensive. May continue on the current medications Qualifiers: Hypertension type: primary hypertension Qualified Code(s): I10 - Essential (primary) hypertension (5) Rheumatoid arthritis: And is being followed by the rheumatology clinic Qualifiers: Rheumatoid arthritis location: unspecified site Rheumatoid factor presence: unspecified presence Qualified Code(s): M06.9 - Rheumatoid arthritis, unspecified (6) Hyperlipidemia: May continue on the current medications. (7) GERD (gastroesophageal reflux disease): May continue on the current management Plan Lexiscan/sestamibi stress sestamibi stress test tomorrow Consider restarting the Betapace tomorrow. Because of the history of intolerance to [place], it may be appropriate to optimize the dose of the sotalol before switching to another antiarrhythmic Attestations Medical Necessity Statement*: Patient requires continued hospital stay for close monitoring and further management Coding Level of Care Code 82746 Diagnoses Atrial fibrillation with rapid ventricular response I48.91 PVD (peripheral vascular disease) I73.9 Atherosclerosis of coronary artery of [place] heart without angina pectoris I25.10 Hypertension I10 Hypertension type: primary hypertension Rheumatoid arthritis M06.9 Rheumatoid arthritis location: unspecified site Rheumatoid factor presence: unspecified presence Hyperlipidemia E78.5 GERD (gastroesophageal reflux disease) K21.9
--- NOTE | 2023-04-11 09:56 | PC.NURSE ---
family member in room called nurse states she has right facial droop ... assessment done no changes noted and doctor notified will come and see pt at this time
--- NOTE | 2023-04-11 10:19 | CTR_ITS ---
PROCEDURE INFORMATION: Exam: CT Head Without Contrast Exam date and time: 04/11/2023 10:31 AM Age: 87 years old Clinical indication: Other: Facial droop TECHNIQUE: Imaging protocol: Computed tomography of the head without contrast. Radiation optimization: All CT scans at this facility use at least one of these dose optimization techniques: automated exposure control; mA and/or kV adjustment per patient size (includes targeted exams where dose is matched to clinical indication); or iterative reconstruction. REPORTING DATA: Count of CT and Cardiac NM exams in prior 12 months: This patient has received 0 known CTs and 0 known cardiac nuclear medicine studies in the 12 months prior to the current study. COMPARISON: No relevant prior studies available. RADIATION DOSE METRICS: Total DLP (mGy-cm): 932 FINDINGS: Brain: Moderate atrophy. No intracranial hemorrhage. No midline shift. Moderate small vessel ischemic changes. Cerebral ventricles: No ventriculomegaly. Paranasal sinuses: Opacification of the right sphenoid sinus and maxillary air cells. Scattered left ethmoidal air cell disease. Opacification of the right frontal sinus. Mastoid air cells: Visualized mastoid air cells are well aerated. Bones/joints: Unremarkable. No acute fracture. Soft tissues: Unremarkable. CT/CT head wo con* [id number] IMPRESSION: 1. Chronic intracranial changes without acute bleed. 2. Sinus disease.
--- NOTE | 2023-04-11 11:15 | PC.NURSE ---
back to room from ct no change at this time
--- NOTE | 2023-04-11 15:46 | PC.NURSE ---
son notified f transfer to room 102 and conditon update
--- NOTE | 2023-04-11 16:45 | P.PN_ITS ---
Subjective Subjective: Today she is feeling better.? Swelling has come down and most of her hand apart from the right wrist.? Has been assessed by Ortho.? Dressing change.? Has been having some minimal tingling/numbness in the fingertips but apart from that is doing much better. Vitals/I&O/Wt Last Vital Signs Temp 98.7 F 04/11/23 14:00 Pulse 56 L 04/11/23 16:24 Resp 22 H 04/11/23 16:00 BP 122/61 04/11/23 16:00 Pulse Ox 98 04/11/23 16:00 O2 Del Method Nasal Cannula 04/11/23 06:00 O2 Flow Rate 3 04/11/23 06:00 04/11/23 04/11/23 04/11/23 06:59 14:59 22:59 Intake Total 1098 / 3266.606 350 / 350 Balance 1098 / 3266.606 350 / 350 Weight last 48 hrs Weight 62.959 kg Weight 56.699 kg Physical Exam Narrative: Accompanied by her son and [id number]. Const: COMMON NORMALS: alert GENERAL APPEARANCE: cooperative ORIENTATION/CONSCIOUSNESS: Yes awake HENMT: COMMON NORMALS: oropharynx normal Neck/C-Spine: COMMON NORMALS: no JVD Resp: COMMON NORMALS: normal respiratory effort and clear to auscultation bilaterally AUSCULTATION: clear to auscultation bilaterally Cardio: COMMON NORMALS: no JVD, regular rhythm, S1 normal heart sound present, S2 normal heart sound present and No murmurs present (Cardio) RHYTHM: regular rhythm HEART SOUNDS: S1 normal heart sound present and S2 normal heart sound present GI: COMMON NORMALS: Normal to inspection, nondistended, normoactive bowel sounds present, Soft to palpation and non-tender PALPATION: Yes Soft to palpation Extremity: COMMON NORMALS: no joint enlargement GENERAL: Yes edema (Trace) Neuro: COMMON NORMALS: moves all extremities SENSORIUM/ORIENTATION: Yes alert OTHER: Neither myself nor RN appreciate facial droop, heart, noted perhaps component of minimal facial droop on the right side by her family. She is otherwise awake and alert, responding and following directions well. She herself denies any new symptoms. Remainder of neurological examination unremarkable apart from her having [id number] arthritis and being unable to lift her left arm/shoulder. No difficulty tracking. Visual escalera full to confrontation. No visual extinction. FNF WNL on the right. Unable to perform the left due to severe left shoulder arthritis. No drift RUE or BLE LE. Sensation symmetrical, no sensory extinction. Skin: COMMON NORMALS: no rashes or lesions noted GENERAL SKIN EXAM: no rashes or lesions noted and ecchymosis OTHER: Thin, fragile. Data 04/11/23 03:04 04/11/23 03:04 Micro: Microbiology 04/10/23 13:35 Blood Culture - Preliminary Blood NEGATIVE TO DATE 04/10/23 12:38 Blood Culture - Preliminary Blood NEGATIVE TO DATE A&P Assessment and plan (1) Atrial fibrillation with rapid ventricular response: Remains in sinus rhythm. Cardiogenic shock resolved. Maintaining good blood pressures. Per discussion with cardiology continue sotalol, stop amiodarone. Continue telemetry monitoring. Continue additional assessment for possible ischemic heart disease, cardiology considering stress testing. Noted on formal TTE EF 50%. Mild diffuse hypokinesia LV. Mild biatrial lodgment. Mild MVR. Moderate TVR. Moderate pulmonary hypertension. PA PSP 56. Trace PVR. Continue anticoagulation with Lovenox. Continue care on CSU. Noted potassium 4.4. He is noted to have mild ANGELES, can follow-up renal function. Creatinine 1.2. BUN 22. At risk of electrolyte abnormality. Monitor telemetry. Recheck chemistry requested. Check magnesium. PPI. (2) Atherosclerosis of coronary artery of [place] heart without angina pectoris: History of CABG, prior stents. Initially consideration of new cardiomyopathy, EF thought to be around 40% by bedside evaluation, but appears somewhat better on formal evaluation around 50%. Noted troponin rise up to 40.62 at 6 hours. Consideration of possible progression of CAD. Some demand ischemia suspected with tachycardia, cardiogenic shock. Pending additional evaluation for possible progression of CAD. Cardiology considering stress test. Continue aspirin, add statin. BP soft, heart rate in the slow side, will not add metoprolol at this time. (3) Facial droop: Facial droop reported by the family, either myself and RN appreciate facial d lupe on exam, her, noticed to have it as per family. Remainder of neurological examination unremarkable as above. Discussed consideration that she does have risk factors of CVA and may have had a small CVA. Assessed by CT head, chronic changes, otherwise unremarkable. Sinus disease. Permissive hypertension next 24 hours. Consider MRI brain for additional assessment in case additional CVA needing consideration of tPA. Continue started aspirin, add statin. Continue anticoagulation with atrial fibrillation. Carotid duplex may be considered, although overall would not be a good candidate for carotid endarterectomy. TTE has been obtained, follow-up. PT, OT evaluation. Plan HTN, cardiogenic shock last night, so far resolved. Monitor blood pressures. HLD, hypothyroidism, continue levothyroxine rheumatoid arthritis, appears is on as needed prednisone by rheumatology. Methotrexate had been held for now. Attestations Medical Necessity Statement*: Continue admission for assessment management following cardiogenic shock, A-fib with RVR, optimization of rhythm control, additional assessment of possible small CVA. Diagnoses Atrial fibrillation with rapid ventricular response I48.91 Atherosclerosis of coronary artery of [place] heart without angina pectoris I25.10 Facial droop R29.810
--- NOTE | 2023-04-11 18:28 | ECG_ITS ---
[facility] Test Date: 2023-04-11 Pat Name: Shanna Lang Department: Room: 102 Gender: Female Manager Exchange: : 1935 Requested By: Toni Galvez Order Number: [id number] Dean MD: Toni Galvez M.D. Measurements Intervals [place] Rate: 54 P: 36 CT: 176 QRS: -9 QRSD: 90 T: 103 QT: 433 QTc: 414 Interpretive Statements SINUS BRADYCARDIA POSSIBLE RIGHT VENTRICULAR CONDUCTION DELAY [RSR (QR) IN V1/V2] LEFT VENTRICULAR HYPERTROPHY AND ST-T CHANGE [VOLTAGE CRITERIA PLUS ST/T ABNORMALITY] POSSIBLE ANTERIOR MYOCARDIAL INFARCTION , OF INDETERMINATE AGE [30 ms Q WAVE IN V3/V4, OR R < 0.2 mV IN V4] Compared to ECG 04/10/2023 16:16:17 Left ventricular hypertrophy now present ST (T wave) deviation now present Myocardial infarct finding now present Atrial fibrillation no longer present T-wave abnormality no longer present Electronically Signed On 04-11-2023 20:06:16 CDT by Toni Galvez M.D. [id number]
[2023-04-11] MEDS: atorvastatin 40 mg Tablet PO (20:11)
[2023-04-12] VITALS (12 sets, daily range): BP systolic 85–121; BP diastolic 45–75; PULSE 52–127; RESP 16–29; TEMP 36.3–36.9; O2SAT 91–100
[2023-04-12] MEDS: acetaminophen 325 mg Tablet 650 MG PO ×3 (01:40→21:30)
[2023-04-12] MEDS: diphenhydrAMINE 50 mg Capsule PO (01:41)
[2023-04-12] MEDS: gabapentin 100 mg Capsule PO ×2 (01:41→15:33)
[2023-04-12 03:36] LABS: Basophils % 0.3 %; Eosinophils # 0.1 10^3/uL (0.0-0.8); Eosinophils % 1.1 %; Hematocrit 28.4 % (37.0-47.0); Hemoglobin 8.6 g/dL (11.5-15.3); Lymphocytes # 0.6 10^3/uL (0.8-4.8); Lymphocytes % 8.7 %; Mean Corpuscular HGB Conc 30.3 g/dL (30.0-36.0); Mean Corpuscular Hemoglobin 32.8 pg (28.0-34.0); Mean Corpuscular Volume 108.4 fl (81-99); Mean Platelet Volume 9.8 fL (7.4-10.4); Monocytes # 0.3 10^3/uL (0.2-0.9); Monocytes % 4.4 %; Neutrophils # 6.02 10^3/uL (1.8-7.7); Neutrophils % 84.7 %; Nucleated Red Blood Cells % 0 %; Platelet Count 150 10^3/cmm (130-400); Red Blood Count 2.62 10^6/uL (4.1-5.3); Red Cell Distribution Width 15.9 % (12.1-15.1); White Blood Count 7.1 10^3/uL (4.0-10.0)
[2023-04-12 04:01] LABS: Anion Gap 15.7 (5-19); Blood Urea Nitrogen 21 mg/dL (8-23); Calcium 6.9 mg/dL (8.5-10.5); Carbon Dioxide 18 mmol/L (22-29); Chloride 105 mmol/L (98-107); Glucose 91 mg/dL (65-115); Osmolality Calculated 283 mOsm/kg (285-295); Potassium 3.7 mmol/L (3.5-5.1); Sodium 135 mmol/L (136-145)
[2023-04-12] MEDS: pantoprazole DR 40 mg Tablet PO (05:32)
[2023-04-12] MEDS: levothyroxine 88 mcg Tablet PO (05:32)
[2023-04-12] MEDS: FUROsemide 20 mg Tablet PO (05:32)
[2023-04-12] MEDS: enoxaparin 60 mg/0.6 mL Syringe 56 MG SUBCUT (05:33)
--- NOTE | 2023-04-12 06:30 | NMCV_ITS ---
NM selin perf SPECT r/s* [id number] Shanna Lang Age: 87 Gender: F : 1935 Exam Date: 04/12/2023 06:42 Ordering Phys: Toni Galvez MD ([email or web address]) Technologist: YEMI Bradley Exam Location: [facility] Indications: CHEST PAIN STRESS TEST Please see separate stress test report in [facility] for full findings IMAGE PROTOCOL Rest/Stress 1 Lexiscan Day Radiopharmaceutical Dose (mCi) Administration Site Administered by Rest: Tc-99m 10.8 IV YEMI Fishman Sestamibi Stress:Tc-99m 32.8 IV YEMI Fishman Sestamibi Rest: 12-Apr-2023 60 Discovery 630 Stress: 12-Apr-2023 30 Discovery 630 0.4mg Lexiscan. Supine position only as patient was unable to lay prone. SPECT RESULTS Technical Quality: Excellent Raw Data Analysis: Normal Image Corrections: No attenuation or motion correction applied Summed Stress Score: 1 Summed Rest Score: 0 Summed Difference Score: 1 PERFUSION FINDINGS SPECT images demonstrate homogeneous tracer distribution throughout the myocardium. FUNCTIONAL RESULTS (calculated via Gated SPECT) Stress Image LV EF (%): 86 Stress EDV (mL):43 TID: 0.81 Stress ESV (mL):6 FUNCTIONAL FINDINGS: The left ventricle is normal in size. Transient Ischemia Dilatation of 0.81. The left ventricular ejection fraction is normal with a value of 86%. There is normal left ventricular wall thickening. IMPRESSIONS 1. Myocardial perfusion imaging is normal. 2. Overall left ventricular systolic function is normal without regional wall motion abnormalities, LVEF=86%. 3. EKG portion of the study will be reported separately. 4. Scan indicates low risk for cardiac events. Domi Arnett MD (Electronically Signed) Final Date: 12 April 2023 16:21 S
--- NOTE | 2023-04-12 06:56 | ECG_ITS ---
[facility] Test Date: 2023-04-12 Pat Name: Shanna Lang Department: Room: 102 Gender: Female Principal Statistical Programmer: Hollie Jose Antonio : 1935 Requested By: Toni Galvez Order Number: [id number] Dean MD: Domi Arnett M.D. Interpretive Statements NAME OF STUDY: LEXISCAN SESTAMIBI STRESS TEST INDICATION: afib/elevated trop PROCEDURE: At the baseline, the blood pressure was 120/55 mmHg with a heart rate of 59 bpm. The electrocardiogram showed sinus rhythm, normal axis with nonspecific T wave changes. The Lexiscan was infused over a period of 20 seconds. A total of 0.4 milligrams of Lexiscan was infused. The stress phase was continued for a total of 5 minutes. Heart rate at the end of the stress phase was 76 bpm with a blood pressure of 81/43 mmHg. The EKG at the peak infusion revealed significant ST-T wave changes. Sestamibi was injected 20 seconds after the Lexiscan infusion. Blood pressure at the end of the recovery phase was 94/45 mmHg with a heart rate of 75 beats per minute. CONCLUSION: 1. No significant EKG changes with the LexiScan infusion. 2. No LexiScan induced chest pain or cardiac arrhythmia. 3. Normal blood pressure and heart rate response. 4. Sestamibi/sestamibi perfusion scan pending; see separate report. Electronically Signed On 04-16-2023 13:53:06 CDT by Domi Arnett M.D. [id number]
[2023-04-12] MEDS: regadenoson 0.4 Mg/5 ml Syringe IVP (07:56)
--- NOTE | 2023-04-12 08:44 | PC.NURSE ---
Patient returned from stress test at 0847.
[2023-04-12] MEDS: aspirin 81 mg EC Tablet PO (08:51)
--- NOTE | 2023-04-12 15:23 | PC.NURSE ---
Notified Dr. Kilpatrick that patient is requesting gabapentin for her right leg pain. She is rating her pain 9/10. Doctor okay'd an order for gabapentin 100mg BID. She has been tolerating this medication at home. Dr. Kilpatrick is also notified that she has tachicardiac for about 30 minutes. Doctor said if she continues after the gabapentin to contact Dr. Galvez about her sotalol.
--- NOTE | 2023-04-12 16:14 | P.PN_ITS ---
Subjective Subjective: Patient underwent cardiac stress test earlier today, results are awaited. Heart rate trending towards 120s. Complaining of pain in her legs. Wishes to resume her gabapentin. Medications: Reviewed: Yes Medication Review Details: Current Medications Acetaminophen (Acetaminophen 325 Mg Tablet) 650 mg PO Q6H PRN PRN Reason: Mild/Mod Pain Or Temp >/= 101 Aspirin (Aspirin 81 Mg Ec Tablet) 81 mg PO DAILY [facility] Last Admin: 04/11/23 09:42 Dose: 81 mg Atorvastatin Calcium (Atorvastatin 40 Mg Tablet) 40 mg PO BEDTIME [facility] Enoxaparin Sodium (Enoxaparin 60 Mg/0.6 Ml Syringe) 56 mg SUBCUT Q24H [facility] Furosemide (Furosemide 20 Mg Tablet) 20 mg PO QAM [facility] Last Admin: 04/11/23 06:02 Dose: 20 mg Levothyroxine Sodium (Levothyroxine 88 Mcg Tablet) 88 mcg PO QAM [facility] Last Admin: 04/11/23 06:02 Dose: 88 mcg Non-Formulary Medication (Potassium Gluconate) 595 mg PO DAILY PRN PRN Reason: unknown Ondansetron HCl (Ondansetron 2 Mg/Ml Sdv 2 Ml) 4 mg IVP Q8H PRN PRN Reason: vomiting, or N/V if npo Pantoprazole Sodium (Pantoprazole Dr 40 Mg Tablet) 40 mg PO QAM [facility] Last Admin: 04/11/23 06:02 Dose: 40 mg Sotalol HCl (Sotalol 80 Mg Tablet) 40 mg PO BID [facility] Last Admin: 04/11/23 17:25 Dose: 40 mg Zinc Oxide (Zinc Oxide Oint 30 Gm) 1 applic TOPICAL TID PRN PRN Reason: skin irritation Vitals/I&O/Wt Last Vital Signs Temp 97.9 F 04/12/23 04:00 Pulse 120 H 04/12/23 16:00 Resp 21 H 04/12/23 16:00 BP 121/75 04/12/23 12:00 Pulse Ox 100 04/12/23 12:00 O2 Del Method Nasal Cannula 04/12/23 12:00 O2 Flow Rate 3 04/11/23 06:00 04/12/23 04/12/23 04/12/23 06:59 14:59 22:59 Intake Total 600 / 600 Output Total 300 / 300 Balance 300 / 300 Weight last 48 hrs Weight 62.959 kg Weight 62.959 kg Physical Exam Narrative: General: Chronically ill-appearing lady laying in bed in no acute distress. HEENT: PERRLA, pupils bilaterally equal and reactive, pallors not present Chest: Normal vesicular breath sounds, no added sounds, equal good air entry bilaterally CVS: S1-S2 regular, no murmurs, no tachycardia, no gallops, no rubs Abdomen: Soft, nontender, no organomegaly, bowel sounds present Neuro: No focal deficits, no facial deformity, AO x3, power 5/5 in all limbs Data 04/12/23 02:52 04/12/23 02:52 Micro: Microbiology 04/10/23 13:35 Blood Culture - Preliminary Blood NEGATIVE TO DATE 04/10/23 12:38 Blood Culture - Preliminary Blood NEGATIVE TO DATE A&P Assessment and plan (1) Atrial fibrillation with rapid ventricular response: Remains in sinus rhythm. Sotalol discontinued due to bradycardia. Currently patient is on amiodarone 200 mg p.o. twice daily. metoprolol 25 BID additionally resumed by cardiology Continue additional assessment for possible ischemic heart disease, patient underwent stress test this morning, results of which are currently awaited. Noted on formal TTE EF 50%. Mild diffuse hypokinesia LV. Mild biatrial lodgment. Mild MVR. Moderate TVR. Moderate pulmonary hypertension. PA PSP 56. Trace PVR. Continue anticoagulation with Lovenox, transition to oral anticoagulation at discharge. (2) Atherosclerosis of coronary artery of [place] heart without angina pectoris: History of CABG, prior stents. Initially consideration of new cardiomyopathy, EF thought to be around 40% by bedside evaluation, but appears somewhat better on formal evaluation around 50%. Status post cardiac stress test today, results currently awaited. (3) Facial droop: Facial droop reported by the family, either myself and RN appreciate facial droop on exam, her, noticed to have it as per family. Remainder of neurological examination unremarkable as above. Assessed by CT head, chronic changes, otherwise unremarkable. Sinus disease. Blood pressure is currently at goal Consider MRI brain for additional assessment as an outpatient Continue started aspirin, statin. Continue anticoagulation with atrial fibrillation. Carotid duplex may be considered, although overall would not be a good candidate for carotid endarterectomy. PT, OT evaluation appreciated. Plan HTN, blood pressure currently at goal HLD, continue statin hypothyroidism, continue levothyroxine rheumatoid arthritis, appears is on as needed prednisone by rheumatology. Methotrexate had been held for now. Resume home dose of gabapentin Attestations Medical Necessity Statement*: Added p.o. amiodarone today, awaiting results of stress test. Continue p.o. Lasix, tachycardic today, monitor after addition of p.o. amiodarone. Coding Level of Care Code Acute Code for Chg Fwd Moderate MDM includes number and complexity of problems actively addressed during encounter, amount and/or complexity of data reviewed/ordered and described risk of complication, morbidity or mortality of management as documented Diagnoses Atrial fibrillation with rapid ventricular response I48.91 Atherosclerosis of coronary artery of [place] heart without angina pectoris I25.10 Facial droop R29.810
--- NOTE | 2023-04-12 16:15 | P.PN_ITS ---
Subjective Subjective: 87 year old male here for evaluation and treatment of atrial fibrillation and hypertension. She also has PMHx of CAD s/p single-vessel bypass with CEVALLOS to LAD April 2001 and few stents. (Last cath 01/2021: drug-eluting stent of first Marginal branch of the circumflex using 2.25 x 18 mm [place] CESAR, Chronic total occlusion of LAD at its ostium 95% stenosis of first obtuse marginal branch of left circumflex.? 50% lesion proximally in RCA at the proximal segment.? Mid RCA the previously stented site that is widely patent.? No evidence of obstructive coronary disease in RCA with IFR of 0.98.??Patent CEVALLOS to LAD with no significant disease noticed distal to anastomosis.? EF 65%.? Small wire per foration of distal branch of obtuse marginal.? Prolonged inflation of balloon within the stented segment was performed with resolution of perforation) She also has paroxysmal atrial fibrillation on sotalol and Eliquis since 01/2021, hypertension, hyperlipidemia and DJD. She has been having frequent breakthrough symptomatic atrial fibrillation with symptoms of fatigue, palpitations and chest tightness. She has used several additional 1/2 tab sotalol recently (at least 3-4 times/week). She presented to ER with lethargy, weakness and chest tightness and palpitations. In ER, heart rate stayed in the? 130- 140 range and systolic blood pressure was in the 70s. The patient was found to be getting more lethargic.? So for this reason, cardioversion was attempted with 100, 120 and then finally with 150 J of biphasic current.? Patient was given IV amiodarone 150 mg prior to the 150 J.? After a few minutes of the last shock, she was converted to normal sinus rhythm. Last 24 hr: Patient was seen laying down in bed. She is tearful at the time of exam. She underwent stress test this morning Medications: Reviewed: Yes Vitals/I&O/Wt Last Vital Signs Temp 97.9 F 04/12/23 04:00 Pulse 120 H 04/12/23 16:00 Resp 21 H 04/12/23 16:00 BP 121/75 04/12/23 12:00 Pulse Ox 100 04/12/23 12:00 O2 Del Method Nasal Cannula 04/12/23 12:00 O2 Flow Rate 3 04/11/23 06:00 04/12/23 04/12/23 04/12/23 06:59 14:59 22:59 Intake Total 600 / 600 Output Total 300 / 300 Balance 300 / 300 Weight last 48 hrs Weight 138 lb 12.8 oz Weight 138 lb 12.8 oz Physical Exam Const: COMMON NORMALS: no acute distress, patient oriented x3 and alert GENERAL APPEARANCE: cooperative, comfortable, well kempt and well hydrated HENMT: COMMON NORMALS: hearing grossly normal bilaterally, external ears normal and moist oral mucous membranes FACE & SINUS: normal facial exam NOSE: Normal septum present and No nasal discharge present; no Epistaxis present EXTERNAL EAR: Yes external ears normal MOUTH: lip normal Eye: COMMON NORMALS: EOMs intact bilaterally and no scleral icterus GENERAL EYE: appearance normal, both eyes and all related structures ALIGNMENT: Yes alignment normal Neck/C-Spine: COMMON NORMALS: no lymphadenopathy, supple and no JVD GENERAL: Yes normal visual inspection and Yes trachea midline CAROTIDS: Yes normal carotid upstroke Lymph: LYMPHATIC: no lymphadenopathy noted Chest: COMMONS NORMALS: normal inspection of the chest and normal palpation of entire chest wall CHEST: Yes Symmetrical chest wall rise and No tenderness Resp: COMMON NORMALS: clear to auscultation bilaterally EFFORT & INSPECTION: Yes able to speak in complete sentences, No tachypneic, No respirato ry distress, No pursed lip breathing, No labored and No Actively coughing AUSCULTATION: clear to auscultation bilaterally, no crackles, no rales, no rhonchi and no wheezes Cardio: COMMON NORMALS: no JVD, regular rate, regular rhythm, S1 normal heart sound present, S2 normal heart sound present and Peripheral pulses 2+ throughout PALPATION: normal PMI RATE: regular rate RHYTHM: regular rhythm HEART SOUNDS: S1 normal heart sound present, S2 normal heart sound present, no click, no gallops and no murmurs BRUITS: no carotid bruits PERIPHERAL PULSES: Peripheral pulses 2+ throughout, radial pulses present, posterior tibial pulses present and dorsalis pedis present GI: COMMON NORMALS: Soft to palpation AUSCULTATION: Yes normoactive bowel sounds PALPATION: Yes Soft to palpation, No Tenderness to palpation present (GI), No Guarding due to palpation present (GI) and No Rigid due to palpation PERCUSSION: tympanic to percussion Extremity: GENERAL: No clubbing, No cyanosis, Yes edema and No pallor Neuro: COMMON NORMALS: patient oriented x3, CN's II-XII intact bilaterally and no focal motor deficits SENSORIUM/ORIENTATION: Yes alert Psych: COMMON NORMALS: Normal thought process present and speech normal APPEARANCE: Yes well kempt SPEECH: Yes normal speech MOOD & AFFECT: Yes euthymic mood THOUGHT PROCESS: Normal thought process present THOUGHT CONTENT: Yes Normal thought content present Data 04/12/23 02:52 04/12/23 02:52 Micro: Microbiology 04/10/23 13:35 Blood Culture - Preliminary Blood NEGATIVE TO DATE 04/10/23 12:38 Blood Culture - Preliminary Blood NEGATIVE TO DATE A&P Assessment and plan (1) Atrial fibrillation with rapid ventricular response: HR in high 40's last night, sotalol has been held. 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 This was discussed with patient and she is agreeable with the same. -continue therapeutic lovenox (2) Atherosclerosis of coronary artery of [place] heart without angina pectoris: Patient with history of coronary disease, status post coronary bypass [id number], CEVALLOS to the LAD in 2000. Status post inferior wall NM in 2016, thrombotic occlusion of the RCA, underwent thrombectomy and stent placeme nt. Procedure was complicated with V-fib arrest in the [employer] [place]. Had a PCI of the obtuse marginal artery lesion in January 2021, complicated with wire perforation of the distal artery treated by prolonged balloon inflation. Her troponin T at 6 hours had a delta of 22. This could be from the atrial f ibrillation/cardioversion. 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 Since she has no specific symptoms, may continue the current risk modifying measures. (4) Hypertension: Qualifiers: Hypertension type: primary hypertension Qualified Code(s): I10 - Essential (primary) hypertension (5) Rheumatoid arthritis: Qualifiers: Rheumatoid arthritis location: unspecified site Rheumatoid factor presence: unspecified presence Qualified Code(s): M06.9 - Rheumatoid arthritis, unspecified (6) Hyperlipidemia: May continue on the current medications. (7) GERD (gastroesophageal reflux disease): May continue on the current management Attestations Medical Necessity Statement*: needs hospital stay for management of symptomatic atrial fibrillation Coding Level of Care Code 98684 Diagnoses Atrial fibrillation with rapid ventricular response I48.91 Atherosclerosis of coronary artery of [place] heart without angina pectoris I25.10 PVD (peripheral vascular disease) I73.9 Hypertension I10 Hypertension type: primary hypertension Rheumatoid arthritis M06.9 Rheumatoid arthritis location: unspecified site Rheumatoid factor presence: unspecified presence Hyperlipidemia E78.5 GERD (gastroesophageal reflux disease) K21.9
[2023-04-12] MEDS: amiodarone 200 mg Tablet 400 MG PO (16:26)
--- NOTE | 2023-04-12 17:37 | PC.NURSE ---
Doctor notified of current vitals of HR 127, R 24, BP 92/69, and O2 of 97. It has been one hour since her taking the amiodarone 400mg.
--- NOTE | 2023-04-12 17:47 | PC.NURSE ---
Dr Arnett gave orders to give patient amiodarone 150mg IV bolus than start IV amiodarone drip at 1mg/min x 6 hrs then titrate down if heart rate is lower as per protocol.
--- NOTE | 2023-04-12 17:53 | PC.NURSE ---
Dr. Arnett wants patients 2100 PO dose of amiodarone held.
[2023-04-12] MEDS: atorvastatin 40 mg Tablet PO (20:18)
[2023-04-12] MEDS: metoprolol tartrate 25 mg Tablet PO (20:18)
--- NOTE | 2023-04-12 20:37 | PC.NURSE ---
spoke to Dr Edwards and received order to continue amiodarone at 1 mg/min as long as patient is in afib and only drop to 0.5 mg/min if patient converts to NSR or rate drops below 60, also order to hold 2100 dose of PO amiodarone
[2023-04-13] VITALS (9 sets, daily range): BP systolic 99–156; BP diastolic 53–78; PULSE 63–73; RESP 18–30; TEMP 36.5–36.7; O2SAT 91–96
[2023-04-13 05:05] LABS: Basophils % 0.2 %; Eosinophils # 0.1 10^3/uL (0.0-0.8); Hematocrit 30.8 % (37.0-47.0); Hemoglobin 9.6 g/dL (11.5-15.3); Lymphocytes # 0.6 10^3/uL (0.8-4.8); Lymphocytes % 11.9 %; Mean Corpuscular HGB Conc 31.2 g/dL (30.0-36.0); Mean Corpuscular Hemoglobin 33.2 pg (28.0-34.0); Mean Corpuscular Volume 106.6 fl (81-99); Mean Platelet Volume 9.8 fL (7.4-10.4); Monocytes # 0.3 10^3/uL (0.2-0.9); Monocytes % 6.2 %; Neutrophils # 3.96 10^3/uL (1.8-7.7); Neutrophils % 78.5 %; Nucleated Red Blood Cells % 0 %; Platelet Count 162 10^3/cmm (130-400); Red Blood Count 2.89 10^6/uL (4.1-5.3); Red Cell Distribution Width 15.9 % (12.1-15.1)
[2023-04-13] MEDS: pantoprazole DR 40 mg Tablet PO (05:28)
[2023-04-13] MEDS: levothyroxine 88 mcg Tablet PO (05:28)
[2023-04-13] MEDS: FUROsemide 20 mg Tablet PO (05:28)
[2023-04-13] MEDS: enoxaparin 60 mg/0.6 mL Syringe 56 MG SUBCUT (05:29)
[2023-04-13 05:33] LABS: Anion Gap 14.1 (5-19); Blood Urea Nitrogen 17 mg/dL (8-23); Calcium 7.5 mg/dL (8.5-10.5); Carbon Dioxide 23 mmol/L (22-29); Chloride 105 mmol/L (98-107); Glucose 90 mg/dL (65-115); Osmolality Calculated 287 mOsm/kg (285-295); Potassium 4.1 mmol/L (3.5-5.1); Sodium 138 mmol/L (136-145)
[2023-04-13] MEDS: aspirin 81 mg EC Tablet PO (08:30)
[2023-04-13] MEDS: ondansetron 2 mg/ML SDV 2 mL 4 MG IVP (08:30)
[2023-04-13] MEDS: amiodarone 200 mg Tablet PO ×2 (08:31→20:23)
[2023-04-13] MEDS: gabapentin 100 mg Capsule PO ×2 (08:31→17:59)
[2023-04-13] MEDS: metoprolol tartrate 25 mg Tablet PO (08:31)
--- NOTE | 2023-04-13 09:44 | PC.SOCIAL ---
Imm update Imm updated with patient at bedside. Copy of page 2 provided. Patient verbalized understanding. Copy in chart initialed, dated and timed.
--- NOTE | 2023-04-13 14:07 | P.PN_ITS ---
Subjective Subjective: Overnight patient had multiple episodes of diarrhea, she thinks this isrelated to stool softeners however i do not see any on her MAR. Will check C diff if persistent. This morning frequency is reduced. Stated that she felt dizzy after returning from one of her bathroom trips. Blood pressure from this morning is ranging between 1 48-1 50s, however overnight was noted with lows of 85-99. Possible that patient may have had an orthostatic drop. Heart rate appears to have been maintained at that time. Metoprolol was discontinued after the events of this morning. Last dose was received at 8:30 AM. Overall feels like her energy is a little bit better. She ambulated from bed to bathroom to chair without significant difficulty. Heart rate ranging between 66-99. Medications: Reviewed: Yes Medication Review Details: Current Medications Acetaminophen (Acetaminophen 325 Mg Tablet) 650 mg PO Q6H PRN PRN Reason: Mild/Mod Pain Or Temp >/= 101 Aspirin (Aspirin 81 Mg Ec Tablet) 81 mg PO DAILY [facility] Last Admin: 04/11/23 09:42 Dose: 81 mg Atorvastatin Calcium (Atorvastatin 40 Mg Tablet) 40 mg PO BEDTIME [facility] Enoxaparin Sodium (Enoxaparin 60 Mg/0.6 Ml Syringe) 56 mg SUBCUT Q24H [facility] Furosemide (Furosemide 20 Mg Tablet) 20 mg PO QAM [facility] Last Admin: 04/11/23 06:02 Dose: 20 mg Levothyroxine Sodium (Levothyroxine 88 Mcg Tablet) 88 mcg PO QAM [facility] Last Admin: 04/11/23 06:02 Dose: 88 mcg Non-Formulary Medication (Potassium Gluconate) 595 mg PO DAILY PRN PRN Reason: unknown Ondansetron HCl (Ondansetron 2 Mg/Ml Sdv 2 Ml) 4 mg IVP Q8H PRN PRN Reason: vomiting, or N/V if npo Pantoprazole Sodium (Pantoprazole Dr 40 Mg Tablet) 40 mg PO QAM [facility] Last Admin: 04/11/23 06:02 Dose: 40 mg Sotalol HCl (Sotalol 80 Mg Tablet) 40 mg PO BID [facility] Last Admin: 04/11/23 17:25 Dose: 40 mg Zinc Oxide (Zinc Oxide Oint 30 Gm) 1 applic TOPICAL TID PRN PRN Reason: skin irritation Vitals/I&O/Wt Last Vital Signs Temp 98.0 F 08/08/23 08:00 Pulse 66 04/13/23 13:05 Resp 30 H 04/13/23 13:05 BP 112/54 04/13/23 13:05 Pulse Ox 94 04/13/23 13:05 O2 Del Method Room Air 04/13/23 13:05 O2 Flow Rate 1 04/12/23 19:04 04/12/23 04/13/23 04/13/23 22:59 06:59 14:59 Intake Total 583 / 1183 297.534 / 1480.534 837.148 / 837.148 Output Total 200 / 200 Balance 583 / 883 297.534 / 1180.534 637.148 / 637.148 Weight last 48 hrs Weight 62.959 kg Weight 62.959 kg Physical Exam Narrative: General: AAO x3, no acute distress. HEENT: PERRLA, pupils bilaterally equal and reactive, pallors not present Chest: Normal vesicular breath sounds, no added sounds, equal good air entry bilaterally CVS: S1-S2 regular, no murmurs, no tachycardia, no gallops, no rubs Abdomen: Soft, nontender, no organomegaly, bowel sounds present Neuro: No focal deficits, no facial deformity, AO x3, power 5/5 in all limbs Data 04/13/23 04:45 04/13/23 04:45 Other data: 04/12 IMPRESSIONS ?1. Myocardial perfusion imaging is normal. ?2. Overall left ventricular systolic function is normal without regional wall ?motion abnormalities, LVEF=86%. ?3. EKG portion of the study will be reported separately. ?4. Scan indicates low risk for cardiac events. A&P Assessment and plan (1) Atrial fibrillation with rapid ventricular response: Remains in sinus rhythm. Sotalol discontinued due to bradycardia. Currently patient is on amiodarone 200 mg p.o. twice daily. metoprolol 25 BID resumed, but then discontinued this morning due to possible orthostatic drop in BP Stress test from 04/12 without signs of reversible ischemia Noted on formal TTE EF 50%. Mild diffuse hypokinesia LV. Mild biatrial lodgment. Mild MVR. Moderate TVR. Moderate pulmonary hypertension. PA PSP 56. Trace PVR. Continue anticoagulation with Lovenox, transition to oral anticoagulation at discharge. (2) Atherosclerosis of coronary artery of [place] heart without angina pectoris: History of CABG, prior stents. Initially consideration of new cardiomyopathy, EF thought to be around 40% by bedside evaluation, but appears somewhat better on formal evaluation around 50%. Stress test as above (3) Facial droop: Facial droop reported by the family, no significant deficits noted on exam Assessed by CT head, chronic changes, otherwise unremarkable. Sinus disease. Blood pressure is currently at goal Consider MRI brain for additional assessment as an outpatient Continue started aspirin, statin. Continue anticoagulation with atrial fibrillation. Carotid duplex may be considered, although overall would not be a good candidate for carotid endarterectomy. PT, OT evaluation appreciated. Plan HTN, blood pressure currently at goal HLD, continue statin hypothyroidism, continue levothyroxine rheumatoid arthritis, appears is on as needed prednisone by rheumatology. Methotrexate had been held for now. continue home dose of gabapentin Attestations Medical Necessity Statement*: metoprolol d/c today, check orthostatsics, monitor HR and BP on telemetry, if continues to do well, anticipate discharge with HH over next 24 hrs Coding Level of Care Code Acute Code for Chg Fwd Moderate MDM includes number and complexity of problems actively addressed during encounter, amount and/or complexity of data reviewed/ordered and described risk of complication, morbidity or mortality of management as document ed Diagnoses Atrial fibrillation with rapid ventricular response I48.91 Atherosclerosis of coronary artery of [place] heart without angina pectoris I25.10 Facial droop R29.810
[2023-04-13] MEDS: calcium gluconate 0.9% NaCL 1 GM/50 ML PREMIX IV (17:03)
[2023-04-13] MEDS: atorvastatin 40 mg Tablet PO (20:23)
--- NOTE | 2023-04-13 23:23 | P.PN_ITS ---
Subjective Subjective: converted to SR overnight, 1 episode of nausea and another of hypotension Medications: Reviewed: Yes Vitals/I&O/Wt Last Vital Signs Temp 97.8 F 04/13/23 20:00 Pulse 66 04/13/23 22:00 Resp 19 H 04/13/23 20:00 BP 110/53 04/13/23 20:00 Pulse Ox 96 04/13/23 20:00 O2 Del Method Room Air 04/13/23 20:00 O2 Flow Rate 1 04/12/23 19:04 04/13/23 04/13/23 04/14/23 14:59 22:59 06:59 Intake Total 837.148 / 837.148 633.318 / 1470.466 Output Total 200 / 200 600 / 800 Balance 637.148 / 637.148 33.318 / 670.466 Weight last 48 hrs Weight 138 lb 12.8 oz Weight 138 lb 12.8 oz Physical Exam Const: COMMON NORMALS: no acute distress, patient oriented x3 and alert GENERAL APPEARANCE: cooperative, comfortable, well kempt and well hydrated HENMT: COMMON NORMALS: hearing grossly normal bilaterally, external ears normal and moist oral mucous membranes FACE & SINUS: normal facial exam NOSE: Normal septum present and No nasal discharge present; no Epistaxis present EXTERNAL EAR: Yes external ears normal MOUTH: lip normal Eye: COMMON NORMALS: EOMs intact bilaterally and no scleral icterus GENERAL EYE: appearance normal, both eyes and all related structures ALIGNMENT: Yes alignment normal Neck/C-Spine: COMMON NORMALS: no lymphadenopathy, supple and no JVD GENERAL: Yes normal visual inspection and Yes trachea midline CAROTIDS: Yes normal carotid upstroke Lymph: LYMPHATIC: no lymphadenopathy noted Chest: COMMONS NORMALS: normal inspection of the chest and normal palpation of entire chest wall CHEST: Yes Symmetrical chest wall rise and No tenderness Resp: COMMON NORMALS: clear to auscultation bilaterally EFFORT & INSPECTION: Yes able to speak in complete sentences, No tachypneic, No respiratory distress, No pursed lip breathing, No labored and No Actively cough ing AUSCULTATION: clear to auscultation bilaterally, no crackles, no rales, no rhonchi and no wheezes Cardio: COMMON NORMALS: no JVD, regular rate, regular rhythm, S1 normal heart sound present, S2 normal heart sound present and Peripheral pulses 2+ throughout PALPATION: normal PMI RATE: regular rate RHYTHM: regular rhythm HEART SOUNDS: S1 normal heart sound present, S2 normal heart sound present, no click, no gallops and no murmurs BRUITS: no carotid bruits PERIPHERAL PULSES: Peripheral pulses 2+ throughout, radial pulses present, posterior tibial pulses present and dorsalis pedis present GI: COMMON NORMALS: Soft to palpation AUSCULTATION: Yes normoactive bowel sounds PALPATION: Yes Soft to palpation, No Tenderness to palpation present (GI), No Guarding due to palpation present (GI) and No Rigid due to palpation PERCUSSION: tympanic to percussion Extremity: GENERAL: No clubbing, No cyanosis, Yes edema and No pallor Neuro: COMMON NORMALS: patient oriented x3, CN's II-XII intact bilaterally and no focal motor deficits SENSORIUM/ORIENTATION: Yes alert Psych: COMMON NORMALS: Normal thought process present and speech normal APPEARANCE: Yes well kempt SPEECH: Yes normal speech MOOD & AFFECT: Yes euthymic mood THOUGHT PROCESS: Normal thought process present THOUGHT CONTENT: Yes Normal thought content present Data 04/13/23 04:45 04/13/23 04:45 A&P Assessment and plan (1) Atrial fibrillation with rapid ventricular response: HR in high 40's last night, sotalol has been held. I do not think sotalol will keep her in SR as she has been using additional sotalol 40 mg multiple times on top of sotalol 40 mg BID -continue amiodarone 200 mg BID x 2 weeks and then 200 mg daily -Patient has signs of tachybrady syndrome and may need PPM. This was discussed with patient and she is agreeable with the same. -May restart home dose Eliquis (2) Atherosclerosis of coronary artery of [place] heart without angina pectoris: Patient with history of coronary disease, status post coronary bypass [id number], CEVALLOS to the LAD in 2000. Status post inferior wall FL in 2015, thrombotic occlusion of the RCA, underwent thrombectomy and stent placement. Procedure was complicated with V-fib arrest in the [employer]ter. Had a PCI of the obtuse marginal artery lesion in January 2021, complicated with wire perforation of the distal artery treated by prolonged balloon inflation. Her troponin T at 6 hours had a delta of 22. This could be from the atrial fibrillation/cardioversion. 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 Since she has no specific symptoms, may continue the current risk modifying measures. (4) Hypertension: Qualifiers: Hypertension type: primary hypertension Qualified Code(s): I10 - Essential (primary) hypertension (5) Rheumatoid arthritis: Qualifiers: Rheumatoid arthritis location: unspecified site Rheumatoid factor presence: unspecified presence Qualified Code(s): M06.9 - Rheumatoid arthritis, unspecified (6) Hyperlipidemia: May continue on the current medications. (7) GERD (gastroesophageal reflux disease): May continue on the current management Plan Anemia Attestations Medical Necessity Statement*: needs hospital stay for management of symptomatic atrial fibrillation Coding Level of Care Code 13149 Diagnoses Atrial fibrillation with rapid ventricular response I48.91 Atherosclerosis of coronary artery of [place] heart without angina pectoris I25.10 PVD (peripheral vascular disease) I73.9 Hypertension I10 Hypertension type: primary hypertension Rheumatoid arthritis M06.9 Rheumatoid arthritis location: unspecified site Rheumatoid factor presence: unspecified presence Hyperlipidemia E78.5 GERD (gastroesophageal reflux disease) K21.9
[2023-04-14] VITALS: BP 133/59; PULSE 60; RESP 19; TEMP 36.5; O2SAT 89
[2023-04-14 03:54] VITALS: BP 139/64; PULSE 62; RESP 18; TEMP 36.3; O2SAT 98
[2023-04-14 04:29] LABS: Basophils % 0.5 %; Eosinophils # 0.1 10^3/uL (0.0-0.8); Eosinophils % 2.4 %; Hemoglobin 9.8 g/dL (11.5-15.3); Lymphocytes # 0.8 10^3/uL (0.8-4.8); Lymphocytes % 13.8 %; Mean Corpuscular HGB Conc 31.6 g/dL (30.0-36.0); Mean Corpuscular Hemoglobin 33.6 pg (28.0-34.0); Mean Corpuscular Volume 106.2 fl (81-99); Monocytes # 0.5 10^3/uL (0.2-0.9); Monocytes % 7.7 %; Neutrophils # 4.39 10^3/uL (1.8-7.7); Neutrophils % 73.9 %; Nucleated Red Blood Cells % 0 %; Platelet Count 169 10^3/cmm (130-400); Red Blood Count 2.92 10^6/uL (4.1-5.3); White Blood Count 5.9 10^3/uL (4.0-10.0)
[2023-04-14 04:57] LABS: Alanine Aminotransferase 10 U/L (0-33); Albumin Level 3.2 g/dL (3.5-5.2); Alkaline Phosphatase 58 U/L (35-105); Aspartate Amino Transferase 20 U/L (0-32); Blood Urea Nitrogen 18 mg/dL (8-23); Calcium 7.9 mg/dL (8.5-10.5); Carbon Dioxide 25 mmol/L (22-29); Chloride 104 mmol/L (98-107); Globulin 2.2 g/dL (1.3-4.6); Glucose 88 mg/dL (65-115); Osmolality Calculated 289 mOsm/kg (285-295); Sodium 139 mmol/L (136-145); Total Bilirubin 0.4 mg/dL (0.15-1.2); Total Protein 5.4 g/dL (6.6-8.7)
[2023-04-14 05:05] VITALS: PULSE 64
[2023-04-14] MEDS: pantoprazole DR 40 mg Tablet PO (05:35)
[2023-04-14] MEDS: levothyroxine 88 mcg Tablet PO (05:35)
[2023-04-14] MEDS: FUROsemide 20 mg Tablet PO (05:35)
[2023-04-14] MEDS: enoxaparin 60 mg/0.6 mL Syringe SUBCUT (05:37)
[2023-04-14 07:51] VITALS: BP 120/61; PULSE 71; RESP 20; TEMP 36.3; O2SAT 93
[2023-04-14] MEDS: aspirin 81 mg EC Tablet PO (08:37)
[2023-04-14] MEDS: amiodarone 200 mg Tablet PO (08:37)
[2023-04-14] MEDS: gabapentin 100 mg Capsule PO (08:38)
--- NOTE | 2023-04-14 09:35 | PM.DCS ---
Discharge Providers Date of Admission: 04/10/23 14:44 Date of Discharge: April 14, 2023 Attending Provider at Admission: Ilan Dixon Attending Provider at Discharge: Nicole Kilpatrick MD Primary Care Provider: PARISH Medel Diagnoses at Discharge Discharge Diagnosis (1) Atrial fibrillation with rapid ventricular response: Status: Acute (2) Atherosclerosis of coronary artery of bois forte heart without angina pectoris: Status: Acute (3) PVD (peripheral vascular disease): Status: Acute (4) Hypertension: Status: Acute Qualifiers: Hypertension type: primary hypertension Qualified Code(s): I10 - Essential (primary) hypertension (5) Rheumatoid arthritis: Status: Acute Qualifiers: Rheumatoid arthritis location: unspecified site Rheumatoid factor presence: unspecified presence Qualified Code(s): M06.9 - Rheumatoid arthritis, unspecified Permanent problem details: Reported hx by pt (6) Hyperlipidemia: Status: Acute (7) GERD (gastroesophageal reflux disease): Status: Acute Reason for Visit Reason for Visit: WEAKNESS; FEVER Hospital Course Hospital Course 87y/o of atherosclerotic heart disease, status post coronary bypass surgery, status post PCI, intermittent atrial fibrillation, high blood pressure, dyslipidemia, rheumatoid arthritis, subclavian artery stenosis -brought to the ER due to generalized weakness and inability move around. She was found to be in atrial fibrillation with rapid ventricular rate in the emergency room.? She was started on IV esmolol.?the heart rate stayed in the? 130- 140 range.? Her systolic blood pressure was in the 70s and was found to be getting more lethargic.? So for this reason, cardioversion was attempted with 100, 120 and then finally with 150 J of biphasic current.? Patient was given IV amiodarone 150 mg prior to the 150 J.? After a few minutes of the last shock, she was converted to normal sinus rhythm. She was then started on amiodarone infusion and has been transitioned to po amiodaone at the time of discharge. ?Metoprolol wad attempted to be added but resulted in hypotension and was discontinued. Bedside cardiac ultrasound done shortly after cardioversion with some concern for EF appearing lower at 40%, some concern for possible cardiac ischemia.? On formal TTE EF appeared around 50%.?She underwent ischemic evaluation with stress test which did not show any signs of reversible ischemia currently. On 04/10, her family noticed a right sided facial droop which was later not reproducible on MD and nurse exam. Her neurological exam remained non focal. CT head unremarkable.?It was discussed with family cannot exclude CVA as she does have risks.? At some point may consider MRI as outpatient; deferred carotid duplex at this time as She would not make a good surgical candidate even if there was carotid disease and she is otherwise on appropriate medical management with ASA, Eliquis and statins. It seems she has not been on aspirin ever since moving locally with her physician in [place] discontinuing it. Reason was not entirely clear. ? She does have history of CABG, stents, and now with some possible small CVA, has been resumed on aspirin 81mg daily. She feels well on day of discharge. She is in sinus rhythm at 66 bpm. BP 120/61mmhg Physical Exam Narrative: General: No acute distress, AO x3 HEENT: PERRLA, pupils bilaterally equal and reactive, pallors not present Chest: Normal vesicular breath sounds, no added sounds, equal good air entry bilaterally CVS: S1-S2 regular, no murmurs, no tachycardia, no gallops, no rubs Abdomen: Soft, nontender, no organomegaly, bowel sounds present Neuro: No focal deficits, no facial deformity, AO x3, power 5/5 in all limbs Discharge Data Studies Completed and Pending Completed Studies During Hospitalization Category Date Time Status CT head wo con* [id number] Routine Cat Scan 04/11/23 10:19 Completed Cardiac Stress Test MIBI [Sestamibi Stress Test Request Exams 04/12/23 06:56 Draft ] Routine XR chest 1V portable [id number] Stat Exams 04/10/23 11:24 Completed NM selin perf SPECT r/s* [id number] Routine Nuc Med 04/12/23 06:30 Completed CV. echo complete* [id number] Stat Ultrasound 04/10/23 16:18 Completed Pending at discharge Category Date Time Status Cardiac Stress Test MIBI [Sestamibi Stress Test Request Exams 04/11/23 19:29 Stop Req ] Routine Blood Culture Stat Lab 04/10/23 13:35 Results C DIFF [Clostridioides Difficile PCR] Routine Lab 04/13/23 15:02 Uncollected Radiology Impressions Chest X-Ray 04/10/23 11:24 IMPRESSION: 1. No acute findings. 2. Metallic sternotomy wires are present Head CT 04/11/23 10:19 IMPRESSION: 1. Chronic intracranial changes without acute bleed. 2. Sinus disease. Laboratory Results WBC 5.9 10^3/uL (4.0-10.0) 04/14/23 04:04 RBC 2.92 10^6/uL (4.1-5.3) L 04/14/23 04:04 Hgb 9.8 g/dL (11.5-15.3) L 04/14/23 04:04 Hct 31.0 % (37.0-47.0) L 04/14/23 04:04 MCV 106.2 fl (81-99) H 04/14/23 04:04 MCH 33.6 pg (28.0-34.0) 04/14/23 04:04 MCHC 31.6 g/dL (30.0-36.0) 04/14/23 04:04 RDW 16.0 % (12.1-15.1) H 04/14/23 04:04 Plt Count 169 10^3/cmm (130-400) 04/14/23 04:04 MPV 10.0 fL (7.4-10.4) 04/14/23 04:04 Neut % (Auto) 73.9 % 04/14/23 04:04 Lymph % (Auto) 13.8 % 04/14/23 04:04 [place] % (Auto) 7.7 % 04/14/23 04:04 Eos % (Auto) 2.4 % 04/14/23 04:04 Baso % (Auto) 0.5 % 04/14/23 04:04 Neut # (Auto) 4.39 10^3/uL (1.8-7.7) 04/14/23 04:04 Lymph # (Auto) 0.8 10^3/uL (0.8-4.8) 04/14/23 04:04 [place] # (Auto) 0.5 10^3/uL (0.2-0.9) 04/14/23 04:04 Eos # (Auto) 0.1 10^3/uL (0.0-0.8) 04/14/23 04:04 Baso # (Auto) 0.0 10^3/uL (0.0-0.1) 04/14/23 04:04 Nucleated RBC % (auto) 0 % 04/14/23 04:04 Nucleated RBCs # 0.0 /100WBC 04/14/23 04:04 Sodium 139 mmol/L (136-145) 04/14/23 04:04 Potassium 4.0 mmol/L (3.5-5.1) 04/14/23 04:04 Chloride 104 mmol/L (98-107) 04/14/23 04:04 Carbon Dioxide 25 mmol/L (22-29) 04/14/23 04:04 Anion Gap 14.0 (5-19) 04/14/23 04:04 BUN 18 mg/dL (8-23) 04/14/23 04:04 Creatinine 1.2 mg/dL (0.5-0.9) H 04/14/23 04:04 GFR Calculation Not Reportable 04/14/23 04:04 Glucose 88 mg/dL (65-115) 04/14/23 04:04 Calculated Osmolality 289 mOsm/kg (285-295) 04/14/23 04:04 Lactic Acid 1.2 mmol/L (0.5-2.2) 04/10/23 12:38 Calcium 7.9 mg/dL (8.5-10.5) L 04/14/23 04:04 Magnesium 2.0 mg/dL (1.7-2.3) 04/12/23 02:52 Total Bilirubin 0.4 mg/dL (0.15-1.2) 04/14/23 04:04 AST 20 U/L (0-32) 04/14/23 04:04 ALT 10 U/L (0-33) 04/14/23 04:04 Alkaline Phosphatase 58 U/L (35-105) 04/14/23 04:04 Troponin T Baseline 18 ng/L (0-10) H 04/10/23 12:38 Troponin T 120 Minute 24.04 ng/L (0-10) H 04/10/23 15:19 Delta Troponin T 6.04 ABS# (0-10) 04/10/23 15:19 Troponin T Hi Sens 6Hr 40.62 ng/L (0-10) H 04/10/23 18:28 Troponin T Hi Sens 6Hr Delta 22.62 ng/L (0-12) H* 04/10/23 18:28 C-Reactive Protein 64.9 mg/L (0.0-4.9) H 04/10/23 12:38 Total Protein 5.4 g/dL (6.6-8.7) L 04/14/23 04:04 Albumin 3.2 g/dL (3.5-5.2) L 04/14/23 04:04 Globulin 2.2 g/dL (1.3-4.6) 04/14/23 04:04 Procalcitonin 0.48 ng/mL (0-0.5) 04/10/23 12:38 TSH 1.03 uIU/mL (0.27-4.20) 04/10/23 12:38 Random Cortisol 5.56 ug/dL (2.47-19.5) 04/10/23 18:28 Urine Color Yellow (Yellow) 04/10/23 11:43 Urine Appearance Sl hazy (CLEAR) A 04/10/23 11:43 Urine pH 8 (5-7) H 04/10/23 11:43 Ur Specific [place] 1.005 (1.005-1.030) 04/10/23 11:43 Urine Protein Neg (Negative) 04/10/23 11:43 Urine Glucose (UA) Norm (Normal) 04/10/23 11:43 Urine Ketones Negative (Negative) 04/10/23 11:43 Urine Blood Neg (Negative) 04/10/23 11:43 Urine Nitrate Negative (Negative) 04/10/23 11:43 Urine Bilirubin Neg (Negative) 04/10/23 11:43 Prot Sulfosalicylic Acd Negative (Negative) 04/10/23 11:43 Urine Urobilinogen Norm mg/dL (Negative) 04/10/23 11:43 Ur Leukocyte Esterase Negative (Negative) 04/10/23 11:43 Urine RBC None /hpf (0-2) 04/10/23 11:43 Urine WBC 5-10 /hpf (0-5) H 04/10/23 11:43 Ur Squamous Epith Cells 0-4 /hpf (0-5) H 04/10/23 11:43 Amorphous Sediment Not Reportable 04/10/23 11:43 Urine Bacteria Trace /hpf (NONE) 04/10/23 11:43 Nasal Influ A H1 2008 PCR Not detected (NOT DETECT) 04/10/23 11:34 Adenovirus (PCR) Not detected (NOT DETECT) 04/10/23 11:34 C. pneumoniae DNA (PCR) Not detected (NOT DETECT) 04/10/23 11:34 Coronavirus 229E (PCR) Not detected (NOT DETECT) 04/10/23 11:34 Human Metapneumovir PCR Not detected (NOT DETECT) 04/10/23 11:34 Influenza A (H1) PCR Not detected (NOT DETECT) 04/10/23 11:34 Influenza A (H3) PCR Not detected (NOT DETECT) 04/10/23 11:34 Influenza Type A (PCR) Not detected (NOT DETECT) 04/10/23 11:34 Influenza Type B (PCR) Not detected (NOT DETECT) 04/10/23 11:34 M. pneumoniae (PCR) Not detected (NOT DETECT) 04/10/23 11:34 Parainfluenza 1 (PCR) Not detected (NOT DETECT) 04/10/23 11:34 Parainfluenza 2 (PCR) Not detected (NOT DETECT) 04/10/23 11:34 Parainfluenza 3 (PCR) Not detected (NOT DETECT) 04/10/23 11:34 Parainfluenza 4 (PCR) Not detected (NOT DETECT) 04/10/23 11:34 RSV Type A (PCR) Not detected (NOT DETECT) 04/10/23 11:34 RSV Type B (PCR) Not detected (NOT DETECT) 04/10/23 11:34 Entero/Rhino (PCR) Not detected (NOT DETECT) 04/10/23 11:34 SARS-CoV-2 (PCR) Not detected (NOT DETECT) 04/10/23 11:34 Vitals Last Vital Signs Temp 97.4 F L 04/14/23 07:51 Pulse 71 04/14/23 07:51 Resp 20 H 04/14/23 07:51 BP 120/61 04/14/23 07:51 Pulse Ox 93 04/14/23 07:51 O2 Del Method Room Air 04/14/23 07:51 O2 Flow Rate 1 04/12/23 19:04 Discharge Plan Discharge Patient Disposition: Home Health Service Condition: Stable Prescriptions: New atorvastatin 40 mg Tablet 40 mg PO BEDTIME 30 Days Qty: 30 0RF Pacerone 200 mg Tablet 200 mg PO 0900,2100 30 Days Qty: 60 0RF aspirin 81 mg Tablet,Delayed Release (Dr/Ec) 81 mg PO DAILY 30 Days Qty: 30 0RF Continued potassium gluconate 595 mg (99 mg) tablet 595 mg PO DAILY PRN (Reason: unknown) ascorbic acid (vitamin C) 500 mg capsule 500 mg PO DAILY calcium carbonate 600 mg calcium (1,500 mg) tablet 600 mg PO DAILY cholecalciferol (vitamin D3) 50 mcg (2,000 unit) capsule 50 mcg PO DAILY PRN (Reason: unknown) (DME) Back brace See Rx Instructions .Route .MEDSUPPLY Qty: 1 0RF Rx Instructions: Fit patient for brace furosemide 20 mg tablet 20 mg PO QAM (DME) doughnut cushion See Rx Instructions .Route .MEDSUPPLY Qty: 1 0RF Rx Instructions: As directed prednisone 5 mg tablet 5 mg PO DAILY PRN (Reason: Pain) Qty: 60 0RF zinc oxide 40 % ointment 1 applic topical TID PRN (Reason: skin irritation) 30 Days Qty: 113 0RF tramadol 50 mg tablet 50 mg PO BID PRN (Reason: pain) Qty: 60 0RF (DME) accommodative orthotic See Rx Instructions .Route .MEDSUPPLY Qty: 1 0RF Rx Instructions: As directed by [facility]IEU[facility] mecobalamin (vitamin B12) 1,000 mcg tablet,chewable 1,000 mcg PO DAILY Qty: 60 2RF gabapentin 100 mg capsule 100 mg PO BID Qty: 180 2RF nitroglycerin 400 mcg/spray spray,non-aerosol 1 spray translingual Q5M PRN (Reason: chest pain) Qty: 4.9 3RF Rx Instructions: do not exceed 3 doses per episode Repatha SureClick 140 mg/mL pen injector 140 mg SUBCUT Q14D Qty: 2 12RF Rx Instructions: on sundays folic acid 1 mg tablet 1 mg PO TID Qty: 270 4RF Eliquis 2.5 mg tablet 2.5 mg PO BID Qty: 180 1RF Lactaid 3,000 unit Tablet 3,000 - 9,000 unit PO DAILY PRN (Reason: unknown) Imodium Multi-Symptom Relief 2-125 mg Tablet 1 tab PO PRN Tirosint 88 mcg capsule 88 mcg PO QAM [id number] carb-vit K 18 mg iron-400 mcg-500 mg Tablet 1 tab PO DAILY Ocuvite Adult 50 Plus 250 mg (90 mg-160 mg) Capsule 1 cap PO DAILY Colon Health 1 cap PO QAM Focus Factor 1 tab PO DAILY Vinia Red Grape Powder Capsule 1 cap PO DAILY Viviscal 1 tab PO DAILY omeprazole 40 mg capsule,delayed release(DR/EC) 40 mg PO QAM methotrexate sodium 2.5 mg tablet 10 mg PO .ON AND WED Premarin 0.3 mg tablet 0.3 mg PO QAM Discontinued sotalol 80 mg tablet 40 mg PO BID Qty: 90 2RF Discharge Orders: Discharge Order (Routine); Ordered 04/14/23 Ordered By: Nicole Kilpatrick Referrals: Alexa Benavides FNP [Primary Care Provider] - 04/22/23 10:00 am Hope De La Paz FNP [Nurse Practitioner] - 04/21/23 10:45 am Discharge Diet: Usual diet Discharge Activity: Resume usual activity Patient Instructions: Amiodarone (By mouth) (Cordarone, Pacerone), Atorvastatin (By mouth) (Lipitor, Atorvaliq), A-fib (Atrial Fibrillation) (DC), Peripheral Vascular Disease (DC), GERD (Gastroesophageal Reflux Disease) (DC), Hyperlipidemia (DC), Opioid Safety Discharge Attestations Time Spent in Discharge Care*: greater than 30 min Quality Metrics Clinical Quality Measures [ No reported AMI, CVA or VTE this stay] Coding Level of Care Code Acute Code for Chg Fwd Total time (in minutes) for Discharge: 45 Diagnoses Atrial fibrillation with rapid ventricular response I48.91 Atherosclerosis of coronary artery of bois forte heart without angina pectoris I25.10 PVD (peripheral vascular disease) I73.9 Hypertension I10 Hypertension type: primary hypertension Rheumatoid arthritis M06.9 Rheumatoid arthritis location: unspecified site Rheumatoid factor presence: unspecified presence Hyperlipidemia E78.5 GERD (gastroesophageal reflux disease) K21.9
--- NOTE | 2023-04-14 09:36 | PM.PN ---
Subjective Subjective: Remain in SR on telemetry. No nausea/vomiting. She ambulated with walker yesterday and did well. Her only complain is R leg tingling and pain Medications: Reviewed: Yes Medication Review Details: Current Medications Acetaminophen (Acetaminophen 325 Mg Tablet) 650 mg PO Q6H PRN PRN Reason: Mild/Mod Pain Or Temp >/= 101 Aspirin (Aspirin 81 Mg Ec Tablet) 81 mg PO DAILY [facility] Last Admin: 04/11/23 09:42 Dose: 81 mg Atorvastatin Calcium (Atorvastatin 40 Mg Tablet) 40 mg PO BEDTIME [facility] Enoxaparin Sodium (Enoxaparin 60 Mg/0.6 Ml Syringe) 56 mg SUBCUT Q24H [facility] Furosemide (Furosemide 20 Mg Tablet) 20 mg PO QAM [facility] Last Admin: 04/11/23 06:02 Dose: 20 mg Levothyroxine Sodium (Levothyroxine 88 Mcg Tablet) 88 mcg PO QAM [facility] Last Admin: 04/11/23 06:02 Dose: 88 mcg Non-Formulary Medication (Potassium Gluconate) 595 mg PO DAILY PRN PRN Reason: unknown Ondansetron HCl (Ondansetron 2 Mg/Ml Sdv 2 Ml) 4 mg IVP Q8H PRN PRN Reason: vomiting, or N/V if npo Pantoprazole Sodium (Pantoprazole Dr 40 Mg Tablet) 40 mg PO QAM [facility] Last Admin: 04/11/23 06:02 Dose: 40 mg Sotalol HCl (Sotalol 80 Mg Tablet) 40 mg PO BID [facility] Last Admin: 04/11/23 17:25 Dose: 40 mg Zinc Oxide (Zinc Oxide Oint 30 Gm) 1 applic TOPICAL TID PRN PRN Reason: skin irritation Vitals/I&O/Wt Last Vital Signs Temp 97.4 F L 04/14/23 07:51 Pulse 71 04/14/23 07:51 Resp 20 H 04/14/23 07:51 BP 120/61 04/14/23 07:51 Pulse Ox 93 04/14/23 07:51 O2 Del Method Room Air 04/14/23 07:51 O2 Flow Rate 1 04/12/23 19:04 04/13/23 04/14/23 04/14/23 22:59 06:59 14:59 Intake Total 633.318 / 1470.466 Output Total 600 / 800 Balance 33.318 / 670.466 Weight last 48 hrs Weight 137 lb 11.2 oz Weight 138 lb 12.8 oz Physical Exam Const: COMMON NORMALS: no acute distress, patient oriented x3 and alert GENERAL APPEARANCE: cooperative, comfortable, well kempt and well hydrated HENMT: COMMON NORMALS: hearing grossly normal bilaterally, external ears normal and moist oral mucous membranes FACE & SINUS: normal facial exam EXTERNAL EAR: Yes external ears normal MOUTH: lip normal Eye: COMMON NORMALS: EOMs intact bilaterally and no scleral icterus GENERAL EYE: appearance normal, both eyes and all related structures ALIGNMENT: Yes alignment normal Neck/C-Spine: COMMON NORMALS: no lymphadenopathy, supple and no JVD GENERAL: Yes normal visual inspection and Yes trachea midline CAROTIDS: Yes normal carotid upstroke Chest: COMMONS NORMALS: normal inspection of the chest and normal palpation of entire chest wall CHEST: Yes Symmetrical chest wall rise and No tenderness Resp: COMMON NORMALS: clear to auscultation bilaterally EFFORT & INSPECTION: Yes able to speak in complete sentences, No tachypneic, No respiratory distress, No pursed lip breathing, No labored and No Actively coughing AUSCULTATION: clear to auscultation bilaterally, no crackles, no rales, no rhonchi and no wheezes Cardio: COMMON NORMALS: no JVD, regular rate, regular rhythm, S1 normal heart sound present, S2 normal heart sound present and Peripheral pulses 2+ throughout PALPATION: normal PMI RATE: regular rate RHYTHM: regular rhythm HEART SOUNDS: S1 normal heart sound present, S2 normal heart sound present, no click, no gallops and no murmurs BRUITS: no carotid bruits PERIPHERAL PULSES: Peripheral pulses 2+ throughout, radial pulses present, posterior tibial pulses present and dorsalis pedis present GI: COMMON NORMALS: Soft to palpation AUSCULTATION: Yes normoactive bowel sounds PALPATION: Yes Soft to palpation, No Tenderness to palpation present (GI), No Guarding due to palpation present (GI) and No Rigid due to palpation Extremity: GENERAL: No cyanosis, No edema and No pallor Neuro: COMMON NORMALS: patient oriented x3 and no focal motor deficits SENSORIUM/ORIENTATION: Yes alert Psych: COMMON NORMALS: Normal thought process present and speech normal APPEARANCE: Yes well kempt SPEECH: Yes normal speech MOOD & AFFECT: Yes euthymic mood THOUGHT PROCESS: Normal thought process present THOUGHT CONTENT: Yes Normal thought content present Skin: NARRATIVE SKIN EXAM: mild forearm bruising noted Data 04/14/23 04:04 04/14/23 04:04 A&P Assessment and plan (1) Atrial fibrillation with rapid ventricular response: -continue amiodarone 200 mg BID x 2 weeks and then 200 mg daily -Patient has signs of tachybrady syndrome and may need PPM. This was discussed with patient and she is agreeable with the same. 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 Status post inferior wall NE in 2015, thrombotic occlusion of the RCA, underwent thrombectomy and stent placement. Procedure was complicated with V-fib arrest in the [place]. Had a PCI of the obtuse marginal artery lesion in January 2021, complicated with wire perforation of the distal artery treated by prolonged balloon inflation. Her troponin T at 6 hours had a delta of 22. This could be from the atrial fibrillation/cardioversion. 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 (4) Hypertension: Qualifiers: Hypertension type: primary hypertension Qualified Code(s): I10 - Essential (primary) hypertension (5) Rheumatoid arthritis: Qualifiers: Rheumatoid arthritis location: unspecified site Rheumatoid factor presence: unspecified presence Qualified Code(s): M06.9 - Rheumatoid arthritis, unspecified (6) Hyperlipidemia: May continue on the current medications. 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
[2023-04-14 10:27] VITALS: BP 120/61; PULSE 71; RESP 20; TEMP 36.3; O2SAT 93
== END 2023-04-14 10:28 | disposition home health service (06) | DRG 308 ==
LOC: ER 14:43 → ICU 15:46 → CSU 04-11 15:38
PROVIDERS: Admitting Provider Internal Medicine; Emergency Provider Emergency Medicine; PCP Registered Nurse; Visit Provider Student in an Organized Health Care Education/Training Program
DX: I48.0 Paroxysmal atrial fibrillation (principal); R57.0 Cardiogenic shock; I25.10 Atherosclerotic heart disease of native coronary artery without angina pectoris; Z95.1 Presence of aortocoronary bypass graft; Z95.5 Presence of coronary angioplasty implant and graft; I25.2 Old myocardial infarction; I73.9 Peripheral vascular disease, unspecified; I10 Essential (primary) hypertension; M06.9 Rheumatoid arthritis, unspecified; E78.5 Hyperlipidemia, unspecified; K21.9 Gastro-esophageal reflux disease without esophagitis; I95.9 Hypotension, unspecified; Z79.52 Long term (current) use of systemic steroids; Z79.01 Long term (current) use of anticoagulants; F41.9 Anxiety disorder, unspecified; F32.A Depression, unspecified; Z85.820 Personal history of malignant melanoma of skin; R19.7 Diarrhea, unspecified; M19.90 Unspecified osteoarthritis, unspecified site; R29.810 Facial weakness; I27.20 Pulmonary hypertension, unspecified; I08.1 Rheumatic disorders of both mitral and tricuspid valves; Z87.440 Personal history of urinary (tract) infections; E03.9 Hypothyroidism, unspecified
CPT/HCPCS: 36415; 51702; 70450; 71045; 72125; 78452; 80048; 80053; 81001; 81003; 82533; 83605; 83735; 83880; 84145; 84443; 84484; 85025; 85610; 86140; 87040; 87426; 87486; 87581; 87633; 92960; 93005; 93017; 93306; 96365; 96366; 96367; 96372; 96374; 96375; 96376; 97116; 97161; 97163; 97166; 97530; 97535; 99285; A9500; J0282; J0610; J1160; J1650; J1940; J2270; J2405; J2785; J3490; J7030; J7060; Q0163

== ENCOUNTER 2023-04-14 18:50 | Inpatient (IN) | payer MEDICARE, OTHER, SELFPAY ==
--- NOTE | 2023-04-14 18:57 | ECG_ITS ---
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 Measurements Intervals [place] Rate: 91 P: -22 CT: 168 QRS: -8 QRSD: 79 T: 55 QT: 354 QTc: 436 Interpretive Statements SINUS RHYTHM NONSPECIFIC ST & T-WAVE ABNORMALITY Compared to ECG 04/11/2023 18:47:47 T-wave abnormality now present Sinus bradycardia no longer present Left ventricular hypertrophy no longer present ST (T wave) deviation no longer present Myocardial infarct finding no longer present Electronically Signed On 04-16-2023 9:28:23 CDT by Rodney Mendez M.D. [email or web address]
--- NOTE | 2023-04-14 18:57 | XRR_ITS ---
PROCEDURE INFORMATION: Exam: XR Chest Exam date and time: 04/14/2023 7:02 PM Age: 87 years old Clinical indication: Other: Weakness TECHNIQUE: Imaging protocol: Radiologic exam of the chest. Views: 1 view. COMPARISON: CR (CHEST, ) 04/10/2023 11:42 AM FINDINGS: Lungs: Mixed coarse interstitial and airspace opacities in both lung bases have increased. Pleural spaces: Unremarkable. No pleural effusion. No pneumothorax. Heart/Mediastinum: Unremarkable. No cardiomegaly. Bones/joints: Sternotomy wires. Thoracolumbar scoliosis with severe degenerative changes in the lumbar spine. Bilateral rotator cuff arthropathy. XR/XR chest 1V portable [id number] IMPRESSION: Increased pulmonary edema or pneumonia in the lung bases.
[2023-04-14 19:03] VITALS: BP 127/66; PULSE 92; RESP 18; TEMP 36.7; O2SAT 86; BMI 24.0
--- NOTE | 2023-04-14 19:06 | CTR_ITS ---
PROCEDURE INFORMATION: Exam: CT Head Without Contrast Exam date and time: 04/14/2023 7:53 PM Age: 87 years old Clinical indication: Injury or trauma; Fall; Blunt trauma (contusions or hematomas) TECHNIQUE: Imaging protocol: Computed tomography of the head without contrast. Radiation optimization: All CT scans at this facility use at least one of these dose optimization techniques: automated exposure control; mA and/or kV adjustment per patient size (includes targeted exams where dose is matched to clinical indication); or iterative reconstruction. REPORTING DATA: Count of CT and Cardiac NM exams in prior 12 months: This patient has received 2 known CTs and 0 known cardiac nuclear medicine studies in the 12 months prior to the current study. COMPARISON: CT head wo con* [id number] 04/11/2023 10:31 AM RADIATION DOSE METRICS: Total DLP (mGy-cm): 1068 FINDINGS: Brain: Moderate diffuse cortical volume loss. Moderate hypodensities in supratentorial periventricular and subcortical white matter, consistent with microangiopathy. No intracranial hemorrhage. Physiologic calcifications in the basal ganglia. Cerebral ventricles: No ventriculomegaly. Paranasal sinuses: Opacification of the right sphenoid, maxillary, ethmoid, and frontal sinuses. Opacification anterior left ethmoid air cells. Mastoid air cells: Visualized mastoid air cells are well aerated. Orbital cavities: Prior cataract surgery. Bones/joints: Intact. No fracture. Soft tissues: Unremarkable. Vasculature: No hyperdense artery. CT/CT head wo con* [id number] IMPRESSION: 1. No acute intracranial abnormality. 2. Inflammatory changes in the right paranasal sinuses.
--- NOTE | 2023-04-14 19:22 | W.ED.FALL ---
HPI - Fall General: Chief Complaint: Fall Stated Complaint: weakness, afib Time Seen by Provider: 04/14/23 18:53 Source: patient and EMS Mode of arrival: EMS Limitations: no limitations History of Present Illness: 87-year-old female who states that she was just discharged from the hospital today. States that since being home she has been extremely weak and dizzy states she also had a fall due to her weakness. She states that she does not feel like she can take care of herself. She denies any chest pain states she did hit her head when she fell no loss of consciousness. Denies any vomiting or diarrhea. PFS ED PFSH: Medical History Afib 2020 Anal sphincter incompetence Angina pectoris Anxiety and depression CAD (coronary artery disease) GERD (gastroesophageal reflux disease) History of melanoma History of nonmelanoma skin cancer Hyperlipidemia Hypertension Hypothyroidism Menopause Recurrent urinary tract infection Rheumatoid arthritis Reported hx by pt Scoliosis Scoliosis (and kyphoscoliosis), idiopathic Surgical History History of hand surgery History of hysterectomy History of intestinal surgery History of open heart surgery 2000 History of tonsillectomy Hx of foot surgery right foot Family History Mother Diabetes Other Parkinson disease Social History Smoking and tobacco status: never smoked Alcohol intake: never Substance/Drug Use: never Adopted: No Caregiver/support person: No Lives independently: No Household members: family service: No Sexually active: No Do you think of yourself as: Straight/Heterosexual Current gender identity: Female Physical Exam Const: COMMON NORMALS: patient oriented x3 HENMT: COMMON NORMALS: normocephalic and atraumatic HEAD & SCALP: normocephalic and atraumatic Eye: COMMON NORMALS: Equal, round and reactive pupils present and EOMs intact bilaterally PUPIL: Yes Equal, round and reactive pupils present Neck/C-Spine: COMMON NORMALS: full ROM and supple Chest: COMMONS NORMALS: normal inspection of the chest and normal palpation of entire chest wall Resp: COMMON NORMALS: normal respiratory effort, No retractions, No use of accessory muscles and clear to auscultation bilaterally AUSCULTATION: clear to auscultation bilaterally Cardio: COMMON NORMALS: regular rate, regular rhythm and No murmurs present (Cardio) RATE: regular rate RHYTHM: regular rhythm GI: COMMON NORMALS: Normal to inspection, nondistended, normoactive bowel sounds present, Soft to palpation, non-tender and no masses PALPATION: Yes Soft to palpation Extremity: COMMON NORMALS: normal to inspection and full ROM Neuro: COMMON NORMALS: patient oriented x3, moves all extremities and no focal motor deficits Psych: COMMON NORMALS: mental status grossly normal, Normal thought process present and cooperative THOUGHT PROCESS: Normal thought process present Skin: COMMON NORMALS: no rashes or lesions noted and no wounds GENERAL SKIN EXAM: no rashes or lesions noted Course Vital Signs: Vital signs: Vital Signs Temperature 98.1 F 04/14/23 19:03 Pulse Rate 85 04/14/23 20:34 Respiratory Rate 23 H 04/14/23 20:34 Blood Pressure 128/66 04/14/23 20:34 Pulse Oximetry 99 04/14/23 20:34 Oxygen Delivery Me thod Room Air 04/14/23 20:34 MDM - Fall Medical Decision Making Patient presents with generalized weakness along with fall she just released from the hospital x-ray does show some slight pulmonary edema spoke to the hospitalist will admit again as she likely needs retirement placement. No signs of pneumonia. Medical Records I reviewed the patient's medical records. Lab Data I reviewed the patient's lab results. 04/14/23 20:48 04/14/23 20:48 Radiology Impressions Chest X-Ray 04/14/23 18:57 IMPRESSION: Increased pulmonary edema or pneumonia in the lung bases. Head CT 04/14/23 19:06 IMPRESSION: 1. No acute intracranial abnormality. 2. Inflammatory changes in the right paranasal sinuses. Cervical Spine CT 04/14/23 19:24 IMPRESSION: 1. No acute findings. 2. Multilevel degenerative changes. Laboratory Results WBC 9.9 10^3/uL (4.0-10.0) 04/14/23 20:48 RBC 3.11 10^6/uL (4.1-5.3) L 04/14/23 20:48 Hgb 10.6 g/dL (11.5-15.3) L 04/14/23 20:48 Hct 33.6 % (37.0-47.0) L 04/14/23 20:48 MCV 108.0 fl (81-99) H 04/14/23 20:48 MCH 34.1 pg (28.0-34.0) H 04/14/23 20:48 MCHC 31.5 g/dL (30.0-36.0) 04/14/23 20:48 RDW 15.9 % (12.1-15.1) H 04/14/23 20:48 Plt Count 227 10^3/cmm (130-400) D 04/14/23 20:48 MPV 10.2 fL (7.4-10.4) 04/14/23 20:48 Neut % (Auto) 86.5 % 04/14/23 20:48 Lymph % (Auto) 4.5 % 04/14/23 20:48 [place] % (Auto) 6.3 % 04/14/23 20:48 Eos % (Auto) 0.8 % 04/14/23 20:48 Baso % (Auto) 0.3 % 04/14/23 20:48 Neut # (Auto) 8.53 10^3/uL (1.8-7.7) H 04/14/23 20:48 Lymph # (Auto) 0.4 10^3/uL (0.8-4.8) L 04/14/23 20:48 [place] # (Auto) 0.6 10^3/uL (0.2-0.9) 04/14/23 20:48 Eos # (Auto) 0.1 10^3/uL (0.0-0.8) 04/14/23 20:48 Baso # (Auto) 0.0 10^3/uL (0.0-0.1) 04/14/23 20:48 Nucleated RBC % (auto) 0 % 04/14/23 20:48 Nucleated RBCs # 0.0 /100WBC 04/14/23 20:48 PT 13.50 SECONDS (12.1-14.9) 04/14/23 20:48 INR 1.00 (0.8-1.2) 04/14/23 20:48 Sodium 137 mmol/L (136-145) 04/14/23 20:48 Potassium 4.1 mmol/L (3.5-5.1) 04/14/23 20:48 Chloride 100 mmol/L (98-107) 04/14/23 20:48 Carbon Dioxide 25 mmol/L (22-29) 04/14/23 20:48 Anion Gap 16.1 (5-19) 04/14/23 20:48 BUN 15 mg/dL (8-23) 04/14/23 20:48 Creatinine 1.1 mg/dL (0.5-0.9) H 04/14/23 20:48 GFR Calculation Not Reportable 04/14/23 20:48 Glucose 98 mg/dL (65-115) 04/14/23 20:48 Calculated Osmolality 285 mOsm/kg (285-295) 04/14/23 20:48 Calcium 8.0 mg/dL (8.5-10.5) L 04/14/23 20:48 Total Bilirubin 0.6 mg/dL (0.15-1.2) 04/14/23 20:48 AST 33 U/L (0-32) H 04/14/23 20:48 ALT 19 U/L (0-33) 04/14/23 20:48 Alkaline Phosphatase 94 U/L (35-105) 04/14/23 20:48 Troponin T Baseline 55 ng/L (0-10) H 04/14/23 20:48 NT-Pro-B Natriuret Pep 1409 pg/mL (0-450) H 04/14/23 20:48 Total Protein 6.1 g/dL (6.6-8.7) L 04/14/23 20:48 Albumin 3.4 g/dL (3.5-5.2) L 04/14/23 20:48 Globulin 2.7 g/dL (1.3-4.6) 04/14/23 20:48 Urine Color Yellow (Yellow) 04/14/23 20:35 Urine Appearance Clear (CLEAR) 04/14/23 20:35 Urine pH 5 (5-7) 04/14/23 20:35 Ur Specific [place] 1.010 (1.005-1.030) 04/14/23 20:35 Urine Protein Neg (Negative) 04/14/23 20:35 Urine Glucose (UA) Norm (Normal) 04/14/23 20:35 Urine Ketones Negative (Negative) 04/14/23 20:35 Urine Blood Neg (Negative) 04/14/23 20:35 Urine Nitrate Negative (Negative) 04/14/23 20:35 Urine Bilirubin Neg (Negative) 04/14/23 20:35 Urine Urobilinogen Norm mg/dL (Negative) 04/14/23 20:35 Ur Leukocyte Esterase Negative (Negative) 04/14/23 20:35 EKG Data EKG 1: I personally reviewed and interpreted this EKG as follows: EKG interpretation date: 04/14/23 EKG interpretation time: 19:08 Interpretation: nsr hr [address] or t wave abnormalities qrs 79 qtc 403 Discharge Plan Discharge Condition: Stable Prescriptions: No Action potassium gluconate 595 mg (99 mg) tablet 595 mg PO DAILY PRN (Reason: unknown) ascorbic acid (vitamin C) 500 mg capsule 500 mg PO DAILY calcium carbonate 600 mg calcium (1,500 mg) tablet 600 mg PO DAILY cholecalciferol (vitamin D3) 50 mcg (2,000 unit) capsule 50 mcg PO DAILY PRN (Reason: unknown) (DME) Back brace See Rx Instructions .Route .MEDSUPPLY Qty: 1 0RF Rx Instructions: Fit patient for brace furosemide 20 mg tablet 20 mg PO QAM (DME) doughnut cushion See Rx Instructions .Route .MEDSUPPLY Qty: 1 0RF Rx Instructions: As directed prednisone 5 mg tablet 5 mg PO DAILY PRN (Reason: Pain) Qty: 60 0RF zinc oxide 40 % ointment 1 applic topical TID PRN (Reason: skin irritation) 30 Days Qty: 113 0RF tramadol 50 mg tablet 50 mg PO BID PRN (Reason: pain) Qty: 60 0RF (DME) accommodative orthotic See Rx Instructions .Route .MEDSUPPLY Qty: 1 0RF Rx Instructions: As directed by HIEU&O mecobalamin (vitamin B12) 1,000 mcg tablet,chewable 1,000 mcg PO DAILY Qty: 60 2RF gabapentin 100 mg capsule 100 mg PO BID Qty: 180 2RF nitroglycerin 400 mcg/spray spray,non-aerosol 1 spray translingual Q5M PRN (Reason: chest pain) Qty: 4.9 3RF Rx Instructions: do not exceed 3 doses per episode Repatha SureClick 140 mg/mL pen injector 140 mg SUBCUT Q14D Qty: 2 12RF Rx Instructions: on sundays folic acid 1 mg tablet 1 mg PO TID Qty: 270 4RF Eliquis 2.5 mg tablet 2.5 mg PO BID Qty: 180 1RF Lactaid 3,000 unit Tablet 3,000 - 9,000 unit PO DAILY PRN (Reason: unknown) Imodium Multi-Symptom Relief 2-125 mg Tablet 1 tab PO PRN Tirosint 88 mcg capsule 88 mcg PO QAM [id number]-xups-FA-Ca carb-vit K 18 mg iron-400 mcg-500 mg Tablet 1 tab PO DAILY Ocuvite Adult 50 Plus 250 mg (90 mg-160 mg) Capsule 1 cap PO DAILY Colon Health 1 cap PO QAM Focus Factor 1 tab PO DAILY Vinia Red Grape Powder Capsule 1 cap PO DAILY Viviscal 1 tab PO DAILY omeprazole 40 mg capsule,delayed release(DR/EC) 40 mg PO QAM methotrexate sodium 2.5 mg tablet 10 mg PO .ON AND WED Premarin 0.3 mg tablet 0.3 mg PO QAM atorvastatin 40 mg Tablet 40 mg PO BEDTIME 30 Days Qty: 30 0RF Pacerone 200 mg Tablet 200 mg PO 0900,2100 30 Days Qty: 60 0RF aspirin 81 mg Tablet,Delayed Release (Dr/Ec) 81 mg PO DAILY 30 Days Qty: 30 0RF Referrals: Alexa Benavides FNP [Primary Care Provider] - Coding Level of Care Code ED [employer] [employer] for Clair Agustin
--- NOTE | 2023-04-14 19:24 | CTR_ITS ---
PROCEDURE INFORMATION: Exam: CT Cervical Spine Without Contrast Exam date and time: 04/14/2023 7:53 PM Age: 87 years old Clinical indication: Injury or trauma; Fall; Blunt trauma TECHNIQUE: Imaging protocol: Computed tomography of the cervical spine without contrast. Radiation optimization: All CT scans at this facility use at least one of these dose optimization techniques: automated exposure control; mA and/or kV adjustment per patient size (includes targeted exams where dose is matched to clinical indication); or iterative reconstruction. REPORTING DATA: Count of CT and Cardiac NM exams in prior 12 months: This patient has received 2 known CTs and 0 known cardiac nuclear medicine studies in the 12 months prior to the current study. COMPARISON: CT head wo con* [id number] 04/11/2023 10:31 AM RADIATION DOSE METRICS: Total DLP (mGy-cm): 795 FINDINGS: Bones/joints: The vertebral body stature is maintained. No compression fracture. Anterior degenerative subluxation of C2 on C3 and C3 on C4. Slight retrograde degenerative subluxation of C4 on C5. The facets are intact with hypertrophic degenerative changes. Severe disc space narrowing at C3-C4 through C6-C7 with endplate sclerosis and spurring. Posterior disc bulges at C3-C4, C4-C5, C5-C6, and C6-C7 with mild central canal stenosis. Left bony foraminal stenosis at C4-C5 and C5-C6. Lungs: Fibrosis in the lung apices. Calcified granulomas in the left upper lobe. Soft tissues: Unremarkable. CT/CT cervical spin wo con* [id number] IMPRESSION: 1. No acute findings. 2. Multilevel degenerative changes.
[2023-04-14 20:34] VITALS: BP 128/66; PULSE 85; RESP 23; O2SAT 99
--- NOTE | 2023-04-14 20:36 | PC.NURSE ---
Dr Turcios gave verbal permission to straight cath patient to obtain urine specimen.
[2023-04-14 20:46] LABS: Add Urine Microscopic? NO; Charge for UA Resulting for Rev
[2023-04-14 20:57] LABS: Basophils % 0.3 %; Eosinophils # 0.1 10^3/uL (0.0-0.8); Eosinophils % 0.8 %; Hematocrit 33.6 % (37.0-47.0); Hemoglobin 10.6 g/dL (11.5-15.3); Lymphocytes # 0.4 10^3/uL (0.8-4.8); Lymphocytes % 4.5 %; Mean Corpuscular HGB Conc 31.5 g/dL (30.0-36.0); Mean Corpuscular Hemoglobin 34.1 pg (28.0-34.0); Mean Platelet Volume 10.2 fL (7.4-10.4); Monocytes # 0.6 10^3/uL (0.2-0.9); Monocytes % 6.3 %; Neutrophils # 8.53 10^3/uL (1.8-7.7); Neutrophils % 86.5 %; Nucleated Red Blood Cells % 0 %; Platelet Count 227 10^3/cmm (130-400); Red Blood Count 3.11 10^6/uL (4.1-5.3); Red Cell Distribution Width 15.9 % (12.1-15.1); White Blood Count 9.9 10^3/uL (4.0-10.0)
--- NOTE | 2023-04-14 20:57 | ECG_ITS ---
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 Measurements Intervals [place] Rate: 83 P: -46 ME: 164 QRS: -12 QRSD: 84 T: 14 QT: 342 QTc: 404 Interpretive Statements ECTOPIC ATRIAL RHYTHM NONSPECIFIC T-WAVE ABNORMALITY Compared to ECG 04/14/2023 19:08:38 Ectopic atrial rhythm now present Sinus rhythm no longer present T-wave abnormality still present Electronically Signed On 04-16-2023 9:32:03 CDT by Rodney Mendez M.D. [id number]
[2023-04-14 21:10] LABS: Urine Appearance Clear (CLEAR); Urine Color Yellow (Yellow); pH Urine 5 (5-7)
[2023-04-14 21:11] LABS: Bilirubin Urine Neg (Negative); Blood Urine Neg (Negative); Glucose Urine UA Norm (Normal); Ketones Urine Negative (Negative); Leukocyte Esterase Urine Negative (Negative); Nitrate Urine Negative (Negative); Protein Urine Neg (Negative); Urobilinogen Urine Norm (Negative)
[2023-04-14 21:20] LABS: Troponin(5th) Baseline 55 ng/L (0-10)
[2023-04-14 21:25] LABS: Alanine Aminotransferase 19 U/L (0-33); Albumin Level 3.4 g/dL (3.5-5.2); Alkaline Phosphatase 94 U/L (35-105); Aspartate Amino Transferase 33 U/L (0-32); Blood Urea Nitrogen 15 mg/dL (8-23); Carbon Dioxide 25 mmol/L (22-29); Chloride 100 mmol/L (98-107); Globulin 2.7 g/dL (1.3-4.6); Glucose 98 mg/dL (65-115); NT Pro B Type Natriuretic Pept 1409 pg/mL (0-450); Osmolality Calculated 285 mOsm/kg (285-295); Sodium 137 mmol/L (136-145); Total Bilirubin 0.6 mg/dL (0.15-1.2); Total Protein 6.1 g/dL (6.6-8.7)
[2023-04-14 21:42] LABS: Anion Gap 16.1 (5-19); Potassium 4.1 mmol/L (3.5-5.1)
--- NOTE | 2023-04-14 21:58 | P.HP_ITS ---
Providers/Chief Complaint Primary Care Provider: PARISH Medel Chief Complaint: weakness, afib History of Present Illness Shanna Lang is a 87 year old female discharged today after management of A-fib RVR status post cardioversion with successful conversion to normal sinus rhythm followed by amiodarone gtt. conversion to p.o. regimen her sotalol was discontinued, she does have significant history of coronary disease, she does have generalized weakness, inability to walk, she is presented today with chief complaint of fall at home worsening of generalized weakness. She is agreeable to go to custodial. At the time of discharge she was given aspirin, amiodarone, atorvastatin for consideration of possible stroke related lower extremity weakness. Patient is stating that at home she was experiencing lightheadedness and dizziness especially when changing her head position she tried to get up but could not balance herself and fell on the floor. Her grandson was in the room who has been looking for rehab/custodial for her. Patient is denying chest pain, fever, dysuria or diarrhea. She is endorsing dry cough. At the time of evaluation she is on 1.5 L otherwise at home she is not on oxygen In the ER she has been diagnosed with CHF exacerbation with high BNP He has been given IV Lasix No acute fractures Review of Systems Narrative: Positive for joint pains Lightheadedness No active chest pain No shortness of breath No abdominal pain or diarrhea Positive for skin rash Joint pains Back pain Dizzy on changing head position No vision change Medications/Allergies Home Medications Medication Instructions Recorded Confirmed Last Taken Type ascorbic acid (vitamin C) 500 mg 500 mg PO DAILY 09/01/21 04/10/23 02/26/22 Hist ory capsule calcium carbonate 600 mg calcium 600 mg PO DAILY 09/01/21 04/10/23 02/26/22 Hist ory (1,500 mg) tablet cholecalciferol (vitamin D3) 50 50 mcg PO DAILY PRN unknown 09/01/21 04/10/23 02/26/22 History mcg (2,000 unit) capsule potassium gluconate 595 mg (99 mg) 595 mg PO DAILY PRN unknown 09/16/21 04/10/23 02/26/22 History tablet Back brace #1 ea 11/20/21 04/10/23 02/26/22 Rx tramadol 50 mg tablet 50 mg PO BID PRN pain #60 tabs 12/22/21 04/10/23 02/26/22 Rx nitroglycerin 400 mcg/spray 1 spray translingual Q5M PRN chest 02/09/22 04/10/23 02/26/22 Rx translingual pain #4.9 grams doughnut cushion #1 ea 04/07/22 04/10/23 Unknown Rx accommodative orthotic #1 ea 04/15/22 04/10/23 Unknown Rx evolocumab 140 mg/mL subcutaneous 140 mg SUBCUT Q14D #2 mL 05/21/22 04/10/23 Unknown Rx pen injector (Felicita Antonio) mecobalamin (vitamin B12) 1,000 1,000 mcg PO DAILY #60 tabs 07/14/22 04/10/23 Unknown Rx mcg chewable tablet prednisone 5 mg tablet 5 mg PO DAILY PRN Pain #60 tabs 10/14/22 04/10/23 Unknown Rx folic acid 1 mg tablet 1 mg PO TID #270 tabs 11/25/22 04/10/23 04/09/23 Rx apixaban 2.5 mg tablet (Eliquis) 2.5 mg PO BID #180 tabs 12/04/22 04/10/23 04/09/23 Rx zinc oxide 40 % topical ointment 1 applic topical TID PRN skin 01/19/23 04/10/23 Unknown Rx irritation 30 days #113 grams furosemide 20 mg tablet 20 mg PO QAM 01/27/23 04/10/23 04/09/23 History see pharmacy comment gabapentin 100 mg capsule 100 mg PO BID #180 caps 01/27/23 04/10/23 04/09/23 Rx Colon Health 1 cap PO QAM 04/10/23 04/10/23 Unknown History Focus Factor 1 tab PO DAILY 04/10/23 04/10/23 Unknown History Vinia Red Grape Powder Capsule 1 cap PO DAILY 04/10/23 04/10/23 Unknown History Viviscal 1 tab PO DAILY 04/10/23 04/10/23 Unknown History conjugated estrogens 0.3 mg tablet 0.3 mg PO QAM 04/10/23 04/10/23 04/09/23 History (Premarin) lactase 3,000 unit tablet (Lactaid) 3,000 - 9,000 unit PO DAILY PRN 04/10/23 04/10/23 Unknown History unknown levothyroxine 88 mcg capsule 88 mcg PO QAM 04/10/23 04/10/23 04/09/23 History (Tirosint) loperamide-simethicone 2 mg-125 mg 1 tab PO PRN 04/10/23 04/10/23 Unknown History tablet (Imodium Multi-Symptom Relief) methotrexate sodium 2.5 mg tablet 10 mg PO .ON AND Wed04/10/23 04/10/23 Unknown History udshfkzp-ikr-gqtq-FA-Ca carb-vit K 1 tab PO DAILY 04/10/23 04/10/23 Unknown History 18 mg iron-400 mcg-500 mg tablet ebwywwoq-agf- 250 mg-dha 90 1 cap PO DAILY 04/10/23 04/10/23 Unknown History mg-epa 160 pe-sqhu-lekn-zeax capsule (Ocuvite Adult 50 Plus) omeprazole 40 mg capsule,delayed 40 mg PO QAM 04/10/23 04/10/23 04/09/23 History release amiodarone 200 mg tablet (Pacerone) 200 mg PO 0900,2100 30 days #60 04/14/23 Unknown Rx tabs aspirin 81 mg tablet,delayed 81 mg PO DAILY 30 days #30 tabs 04/14/23 Unknown Rx release atorvastatin 40 mg tablet 40 mg PO BEDTIME 30 days #30 tabs 04/14/23 Unknown Rx Allergies Allergy/AdvReac Type Severity Reaction Status Date / Time lactose Allergy Unknown Verified 04/14/23 19:10 Sulfa (Sulfonamide Allergy ADR-Vomitin Verified 04/14/23 19:10 Antibiotics) g PFSH Acute PFSH: Medical History Afib 2020 Anal sphincter incompetence Angina pectoris Anxiety and depression CAD (coronary artery disease) GERD (gastroesophageal reflux disease) History of melanoma History of nonmelanoma skin cancer Hyperlipidemia Hypertension Hypothyroidism Menopause Recurrent urinary tract infection Rheumatoid arthritis Reported hx by pt Scoliosis Scoliosis (and kyphoscoliosis), idiopathic Surgical History History of hand surgery History of hysterectomy History of intestinal surgery History of open heart surgery 2000 History of tonsillectomy Hx of foot surgery right foot Family History Mother Diabetes Other Parkinson disease Social History Smoking and tobacco status: never smoked Alcohol intake: never Substance/Drug Use: never Adopted: No Caregiver/support person: No Lives independently: No Household members: family service: No Sexually active: No Do you think of yourself as: Straight/Heterosexual Current gender identity: Female Vitals/I&O/Wt Last Vital Signs Temp 98.1 F 04/14/23 19:03 Pulse 85 04/14/23 20:34 Resp 23 H 04/14/23 20:34 BP 128/66 04/14/23 20:34 Pulse Ox 99 04/14/23 20:34 O2 Del Method Room Air 04/14/23 20:34 Weight last 48 hrs Weight 63.503 kg Physical Exam Narrative: Pleasant elderly female Clinically does not look fluid overloaded Currently on 1.5 L Mild crackles at base of the lungs Otherwise laying flat no orthopnea PND GCS 15 S1, S2 sinus rhythm heart rate in 80s No audible wheezing Pleasant and cooperative Appears stated age Data 04/14/23 20:48 04/14/23 20:48 A&P Assessment and plan (1) PVD (peripheral vascular disease): (2) Recurrent falls: (3) Vertigo: (4) Acute exacerbation of CHF (congestive heart failure): (5) Rheumatoid arthritis: Qualifiers: Rheumatoid arthritis location: unspecified site Rheumatoid factor presence: unspecified presence Qualified Code(s): M06.9 - Rheumatoid arthritis, unspecified (6) CAD (coronary artery disease): (7) GERD (gastroesophageal reflux disease): (8) Peripheral arterial disease: Plan Recurrent falls generalized weakness I believe this is related to underlying vertigo Will request physical therapy for diagnostic Aurora-Hallpike maneuver No active fracture from recent fall Patient has history of Rheumatoid arthritis, no cervical fracture Patient will need custodial placement for rehab Recent cardioversion for A-fib currently patient is in sinus rhythm Continue amiodarone Eliquis to be continued as well However with recurrent falls continuation of Eliquis might be risky Acute diastolic CHF exacerbation I will add Lasix And potassium supplementation Preserved ejection fraction as per recent echo Recently had ischemic workup High BNP vascular congestion evident on chest x-ray Central vascular congestion, History of coronary disease no active chest pain Acute hypoxia related to CHF exacerbation Wean oxygen to room air Currently on 1.5 L nasal cannula Does not use oxygen at home Patient saying that at nighttime she does better with oxygen, sleep apnea? Full code goals of care discussed Cardiac diet DVT prophylaxis covered with Eliquis History of rheumatoid arthritis: Hold steroids for now Blood pressure stable Her rhythm is sinus at this point Mild vascular congestion evident on the chest x-ray No signs of pneumonia Attestations Medical Necessity Statement*: Anticipating discharge to a custodial Diagnoses PVD (peripheral vascular disease) I73.9 Recurrent falls R29.6 Vertigo R42 Acute exacerbation of CHF (congestive heart failure) I50.9 Rheumatoid arthritis M06.9 Rheumatoid arthritis location: unspecified site Rheumatoid factor presence: unspecified presence CAD (coronary artery disease) I25.10 GERD (gastroesophageal reflux disease) K21.9 Peripheral arterial disease I73.9
--- NOTE | 2023-04-14 22:00 | PC.NURSE ---
Verbal order given to place Alanis catheter to measure accurate I&Os
[2023-04-14 22:03] VITALS: BP 129/75; PULSE 89; RESP 16; O2SAT 99
[2023-04-14] MEDS: FUROsemide 10 mg/mL SDV 4mL 40 MG IVP (22:04)
[2023-04-15] VITALS (14 sets, daily range): BP systolic 92–159; BP diastolic 58–81; PULSE 74–136; RESP 16–17; TEMP 36.4–36.8; O2SAT 95–96
[2023-04-15] MEDS: gabapentin 100 mg Capsule PO ×3 (00:52→17:47)
[2023-04-15] MEDS: amiodarone 200 mg Tablet PO ×3 (00:52→20:42)
--- NOTE | 2023-04-15 00:57 | ECG_ITS ---
[facility] Test Date: 2023-04-15 Pat Name: Shanna Lang Department: Room: 268 Gender: Female Tomographic Tech: : 1935 Requested By: Elmo Turcios Order Number: [id number] Reading MD: Rodney Mendez M.D. Measurements Intervals [place] Rate: 84 P: -10 IA: 161 QRS: -11 QRSD: 84 T: 12 QT: 391 QTc: 464 Interpretive Statements SINUS RHYTHM NONSPECIFIC ST & T-WAVE ABNORMALITY Compared to ECG 04/14/2023 20:57:40 Ectopic atrial rhythm no longer present T-wave abnormality still present Electronically Signed On 04-16-2023 9:31:46 CDT by Rodney Mendez M.D. [id number]
[2023-04-15 05:00] LABS: Basophils # 0.1 10^3/uL (0.0-0.1); Basophils % 0.6 %; Eosinophils # 0.2 10^3/uL (0.0-0.8); Eosinophils % 2.1 %; Lymphocytes # 0.8 10^3/uL (0.8-4.8); Lymphocytes % 9.4 %; Mean Corpuscular HGB Conc 32.3 g/dL (30.0-36.0); Mean Corpuscular Hemoglobin 33.3 pg (28.0-34.0); Mean Corpuscular Volume 103.3 fl (81-99); Mean Platelet Volume 9.9 fL (7.4-10.4); Monocytes # 0.7 10^3/uL (0.2-0.9); Monocytes % 7.9 %; Neutrophils # 6.64 10^3/uL (1.8-7.7); Neutrophils % 78.5 %; Nucleated Red Blood Cells % 0 %; Platelet Count 242 10^3/cmm (130-400); Red Cell Distribution Width 15.7 % (12.1-15.1); White Blood Count 8.5 10^3/uL (4.0-10.0)
[2023-04-15] MEDS: digoxin 250 mcg/ml INJ 2 mL 500 MCG IVP (05:34)
[2023-04-15 05:43] LABS: Blood Urea Nitrogen 14 mg/dL (8-23); Calcium 7.7 mg/dL (8.5-10.5); Carbon Dioxide 27 mmol/L (22-29); Chloride 101 mmol/L (98-107); Glucose 94 mg/dL (65-115); Magnesium 1.6 mg/dL (1.7-2.3); Osmolality Calculated 288 mOsm/kg (285-295); Sodium 139 mmol/L (136-145)
[2023-04-15] MEDS: apixaban 5 mg Tablet 2.5 MG PO (08:02)
[2023-04-15] MEDS: potassium chloride ER 20 mEq Tablet PO (08:02)
[2023-04-15] MEDS: aspirin 81 mg EC Tablet PO (08:02)
--- NOTE | 2023-04-15 10:40 | PC.CHAP ---
Pastoral Care Encounter/Spiritual Assessment Type of Contact [] Declined hatchery attendant visit [] Patient/Family/Request visit [] Outpatient visit [] Follow-up visit [] Physician referral [] Code/Alert [x] Routine visit [] Staff referral [] Actively dying [] Patient sleeping [] Family support [] [] Out of room [] Palliative care [] [x] Receiving care in room [] Pre-surgical visit [] Trauma [] Long length of stay [] ICU visit [] Other: Relational/Emotional Strength [] Patient feels connected with others/family/visitors/staff [x] Distress [] Loneliness/isolation [] Abandonment Spirituality of Patient [x] Person of Otilia [] Attends Jainism of their Otilia [x] Believes in Prayer [] Reads Bible or Judaism materials [] There are Spiritual issues to be addressed Cloth Mercerizer Operator Interventions [x] Prayer [x] Active listening [x] Non-anxious presence [x] Spiritual/emotional support [] Crisis/trauma care [x] Spiritual counseling [] Bereavement support [] Provided bereavement packet [] Provided Bible/devotional materials [] Provided toy/stuffed animal, coloring book to patient or family member [] Provided Communion [] Anointing/[place] [] Salvation [x] Completed spiritual assessment [] Other: Impact on Illness or Injury [] Angry [] Fearful [] Anxious [] Often cries [] Exhaustion [] Unable to work [] Unable to attend restorationism [] Unable to walk/stand [] Unable to read [] Unable to drive [] Unable to eat/drink [] Unable to sleep [] Unable to be with family [] Patient intubated [] Other: Summary senior heart not suer about waiting doctor +1 family well make decsions after talking with doctor or where when released Time spent with patient 10 mins
--- NOTE | 2023-04-15 15:33 | PM.PN ---
Subjective Subjective: Patient was discharged yesterday but returned when she felt weak after returning home and did not feel she can take care of herself. She reports a prior h/o orthostatic hypotension. Her bp currently has ranged between 92-159 mmhg. She received 500mcg digoxin this morning due to A fib with RVR with HR 136 bpm. Medications: Reviewed: Yes Vitals/I&O/Wt Last Vital Signs Temp 97.6 F 04/15/23 12:00 Pulse 87 04/15/23 13:48 Resp 16 04/15/23 12:00 BP 109/62 04/15/23 12:00 Pulse Ox 96 04/15/23 12:00 O2 Del Method Nasal Cannula 04/15/23 09:03 O2 Flow Rate 1.5 04/15/23 09:03 04/15/23 04/15/23 04/15/23 06:59 14:59 22:59 Intake Total 360 / 360 Output Total 1100 / 1100 Balance -1100 / -1100 360 / 360 Weight last 48 hrs Weight 63.503 kg Physical Exam Narrative: General: No acute distress, AO x3 HEENT: PERRLA, pupils bilaterally equal and reactive, pallors not present Chest: Normal vesicular breath sounds, no added sounds, equal good air entry bilaterally CVS: S1-S2 regular, no murmurs, no tachycardia, no gallops, no rubs Abdomen: Soft, nontender, no organomegaly, bowel sounds present Neuro: No focal deficits, no facial deformity, AO x3, power 5/5 in all limbs Urinary Catheter Management: Alanis: Cath Placed During This Visit: yes Reason for Continuing Indwelling Catheter: Other Urinary Catheter Date of Insertion: 04/14/23 Urinary Catheter Time of Insertion: 22:18 Data 04/15/23 04:40 04/15/23 04:40 A&P Assessment and plan (1) PVD (peripheral vascular disease): (2) Recurrent falls: (3) Vertigo: (4) Acute exacerbation of CHF (congestive heart failure): (5) Rheumatoid arthritis: Qualifiers: Rheumatoid arthritis location: unspecified site Rheumatoid factor presence: unspecified presence Qualified Code(s): M06.9 - Rheumatoid arthritis, unspecified (6) CAD (coronary artery disease): (7) GERD (gastroesophageal reflux disease): (8) Peripheral arterial disease: Plan # Recurrent falls generalized weakness Patient has a h/o orthostatic hypotension On previous admission was though to have tachy sonali syndrome which may be contributing to presyncopal episodes Screened for BPPV today- negative Pt recommendations appreciated- patient had previously elected to return home with HH however now wishes to transition to rehab due to reduced endurance check orthostatics # Recent cardioversion for A-fib currently patient is in sinus rhythm Continue amiodarone 200mg BID Overnight had episode of a fib with RVR, received digoxin 500mcg On previous admission was thought to have tachy sonali syndrome, consult cardiology to assess for PPM Hold eliquis # Acute diastolic CHF exacerbation currently on lasix And potassium supplementation Preserved ejection fraction as per recent echo Recently had ischemic workup # History of coronary disease no active chest pain Acute hypoxia related to CHF exacerbation Wean oxygen to room air Currently on 1.5 L nasal cannula Does not use oxygen at home Full code goals of care discussed Cardiac diet DVT prophylaxis covered with Eliquis History of rheumatoid arthritis: resume steroids Blood pressure stable, check orthostatics Attestations Medical Necessity Statement*: currently on iv diuretics, therapy assessmnets, cardiology consult, appropriate disposition planning Coding Level of Care Code Acute Code for Chg Fwd Diagnoses PVD (peripheral vascular disease) I73.9 Recurrent falls R29.6 Vertigo R42 Acute exacerbation of CHF (congestive heart failure) I50.9 Rheumatoid arthritis M06.9 Rheumatoid arthritis location: unspecified site Rheumatoid factor presence: unspecified presence CAD (coronary artery disease) I25.10 GERD (gastroesophageal reflux disease) K21.9 Peripheral arterial disease I73.9
--- NOTE | 2023-04-15 18:19 | P.CONIM_ITS ---
Providers/Reason For Consult Consulting Physician/Specialty*: Rodney Mendez MD/ Cardiology Reason for Consult*: Afib/fall Requesting Physician: Dr Kilpatrick Attending Physician: Nicole Kilpatrick MD Primary Care Provider: PARISH Medel History of Present Illness History of Present Illness Shanna Lang is a 87 year old female with past medical history of recently diagnosed atrial fibrillation, CAD who presented with fall. She was recently discharged from the hospital on Eliquis. She has and balance issues. When she fell down she felt weak and was not using walker. She has diastolic congestive heart failure. There is concern regarding tachybrady syndrome. However, no low heart rates at this time. EKG shows normal sinus rhythm. Review of Systems 2 Narrative: CONSTITUTIONAL: No fever chills weight loss or gain or night sweats. [] HEENT: Normocephalic, atraumatic.[] RESPIRATORY: No cough, sputum, hemoptysis or wheezing.[] CARDIOVASCULAR: No shortness of breath, chest pain, PND, orthopnea, lower extremity edema, presyncope or syncope. [] GI: no nausea vomiting diarrhea. [] CHECKER: No numbness, tingling, weakness or loss of function in any part of the body. [] MUSCULOSKELETAL: No knee or joint pain or rashes. [] Medications/Allergies Home Medications Medication Instructions Recorded Confirmed Last Taken Type ascorbic acid (vitamin C) 500 mg 500 mg PO DAILY 09/01/21 04/15/23 02/26/22 History capsule calcium carbonate 600 mg calcium 600 mg PO DAILY 09/01/21 04/15/23 02/26/22 History (1,500 mg) tablet cholecalciferol (vitamin D3) 50 50 mcg PO DAILY PRN unknown 09/01/21 04/15/23 02/26/22 History mcg (2,000 unit) capsule potassium gluconate 595 mg (99 mg) 595 mg PO DAILY PRN unknown 09/16/21 04/15/23 02/26/22 History tablet Back brace #1 ea 11/20/21 04/15/23 02/26/22 Rx tramadol 50 mg tablet 50 mg PO BID PRN pain #60 tabs 12/22/21 04/15/23 02/26/22 Rx nitroglycerin 400 mcg/spray 1 spray translingual Q5M PRN chest 02/09/22 04/15/23 02/26/22 Rx translingual pain #4.9 grams doughnut cushion #1 ea 04/07/22 04/15/23 Unknown Rx accommodative orthotic #1 ea 04/15/22 04/15/23 Unknown Rx mecobalamin (vitamin B12) 1,000 1,000 mcg PO DAILY #60 tabs 07/14/22 04/15/23 Unknown Rx mcg chewable tablet prednisone 5 mg tablet 5 mg PO DAILY PRN Pain #60 tabs 10/14/22 04/15/23 Unknown Rx folic acid 1 mg tablet 1 mg PO TID #270 tabs 11/25/22 04/15/23 04/09/23 Rx apixaban 2.5 mg tablet (Eliquis) 2.5 mg PO BID #180 tabs 12/04/22 04/15/23 04/09/23 Rx zinc oxide 40 % topical ointment 1 applic topical TID PRN skin 01/19/23 04/15/23 Unknown Rx irritation 30 days #113 grams furosemide 20 mg tablet 20 mg PO QAM 01/27/23 04/15/23 04/09/23 History see pharmacy comment gabapentin 100 mg capsule 100 mg PO BID #180 caps 01/27/23 04/15/23 04/09/23 Rx Colon Health 1 cap PO QAM 04/10/23 04/15/23 Unknown History Focus Factor 1 tab PO DAILY 04/10/23 04/15/23 Unknown History Vinia Red Grape Powder Capsule 1 cap PO DAILY 04/10/23 04/15/23 Unknown History Viviscal 1 tab PO DAILY 04/10/23 04/15/23 Unknown History conjugated estrogens 0.3 mg tablet 0.3 mg PO QAM 04/10/23 04/15/23 04/09/23 History (Premarin) lactase 3,000 unit tablet (Lactaid) 3,000 - 9,000 unit PO DAILY PRN 04/10/23 04/15/23 Unknown History unknown levothyroxine 88 mcg capsule 88 mcg PO QAM 04/10/23 04/15/23 04/09/23 History (Tirosint) loperamide-simethicone 2 mg-125 mg 1 tab PO PRN PRN Diarrhea 04/10/23 04/15/23 Unknown History tablet (Imodium Multi-Symptom Relief) methotrexate sodium 2.5 mg tablet 10 mg PO .ON AND Wed04/10/23 04/15/23 Unknown History ovajkibm-cno-fick-FA-Ca carb-vit K 1 tab PO DAILY 04/10/23 04/15/23 Unknown History 18 mg iron-400 mcg-500 mg tablet enxgmgme-ind-vwcym1 250 mg-dha 90 1 cap PO DAILY 04/10/23 04/15/23 Unknown History mg-epa 160 xi-eoch-vttt-zeax capsule (Ocuvite Adult 50 Plus) omeprazole 40 mg capsule,delayed 40 mg PO QAM 04/10/23 04/15/23 04/09/23 History release amiodarone 200 mg tablet (Pacerone) 200 mg PO 899,2099 30 days #60 04/14/23 04/15/23 Unknown Rx tabs atorvastatin 40 mg tablet 40 mg PO BEDTIME 30 days #30 tabs 04/14/23 04/15/23 Unknown Rx aspirin 81 mg tablet,delayed 81 mg PO DAILY 30 days #30 tabs 04/16/23 Unknown Rx release Allergies Allergy/AdvReac Type Severity Reaction Status Date / Time lactose Allergy Unknown Verified 04/14/23 19:10 Sulfa (Sulfonamide Allergy ADR-Vomitin Verified 04/14/23 19:10 Antibiotics) g Current Medications Generic Name Dose Route Start Last Admin Trade Name Jamieq PRN Reason Stop Dose Admin Amiodarone HCl 200 mg 04/15/23 09:00 04/15/23 08:02 Amiodarone 200 Mg Tablet PO 200 mg 899,2099 INOCENCIA Administration Apixaban 2.5 mg 04/15/23 09:00 04/15/23 08:02 Apixaban 5 Mg Tablet PO 2.5 mg BID INOCENCIA Administration Aspirin 81 mg 04/15/23 09:00 04/15/23 08:02 Aspirin 81 Mg Ec Tablet PO 81 mg DAILY INOCENCIA Administration Furosemide 20 mg 04/15/23 09:00 04/15/23 09:45 Furosemide 10 Mg/Ml Sdv 2ml IVP Not Given Q24H INOCENCIA Gabapentin 100 mg 04/15/23 18:00 04/15/23 17:47 Gabapentin 100 Mg Capsule PO 100 mg BID IONCENCIA Administration Potassium Chloride 20 meq 04/15/23 09:00 04/15/23 08:02 Potassium Chloride Er 20 Meq Tablet PO 20 meq DAILY INOCENCIA Administration PFSH Acute PFSH: Medical History Afib 2020 Anal sphincter incompetence Angina pectoris Anxiety and depression CAD (coronary artery disease) GERD (gastroesophageal reflux disease) History of melanoma History of nonmelanoma skin cancer Hyperlipidemia Hypertension Hypothyroidism Menopause Recurrent urinary tract infection Rheumatoid arthritis Reported hx by pt Scoliosis Scoliosis (and kyphoscoliosis), idiopathic Surgical History History of hand surgery History of hysterectomy History of intestinal surgery History of open heart surgery 2000 History of tonsillectomy Hx of foot surgery right foot Family History Mother Diabetes Other Parkinson disease Social History Smoking and tobacco status: never smoked Alcohol intake: never Substance/Drug Use: never Adopted: No Caregiver/support person: No Lives independently: No Household members: family service: No Sexually active: No Do you think of yourself as: Straight/Heterosexual Current gender identity: Female Vitals/I&O/Wt Last Vital Signs Temp 98.0 F 04/15/23 15:55 Pulse 78 04/15/23 15:55 Resp 16 04/15/23 15:55 BP 108/67 04/15/23 15:55 Pulse Ox 96 04/15/23 15:55 O2 Del Method Nasal Cannula 04/15/23 09:03 O2 Flow Rate 1.5 04/15/23 09:03 04/15/23 04/15/23 04/15/23 06:59 14:59 22:59 Intake Total 360 / 360 Output Total 1100 / 1100 Balance -1100 / -1100 360 / 360 Weight last 48 hrs Weight 140 lb Physical Exam Narrative: GENERAL: Patient is alert, awake and oriented x3. [] NECK: No jugular vein distension. [] HEENT: No cyanosis. No icterus. No pallor. [] HEART: Regular S1 and S2. No murmur, rub or gallop. [] LUNGS: Clear to auscultate bilaterally. [] CENTRAL NERVOUS SYSTEM: Grossly nonfocal. [] EXTREMITIES: Lower extremities with 1+ edema bilaterally. Pulses palpable in the lower extremities, both dorsalis pedis and posterior tibial. [] Urinary Catheter Management: Alanis: Cath Placed During This Visit: yes Reason for Continuing Indwelling Catheter: Other Urinary Catheter Date of Insertion: 04/14/23 Urinary Catheter Time of Insertion: 22:18 Data 04/15/23 04:40 04/15/23 04:40 A&P Assessment and plan (1) Recurrent falls: (2) PVD (peripheral vascular disease): (3) CAD (coronary artery disease): (4) Afib: Qualifiers: Atrial fibrillation type: longstanding persistent Qualified Code(s): I48.11 - Longstanding persistent atrial fibrillation Plan Continue current medications including amiodarone and digoxin. We will continue monitoring. No evidence of tachybrady syndrome at this time Continue Gerda Thank you for involving us with care of this patient. We will continue to follow. Please call with questions. Consult Attestations Medical Necessity Statement: Care expected to cross 2 midnights. Coding Level of Care Code Acute Code for [facility] Fwd Diagnoses Recurrent falls R29.6 PVD (peripheral vascular disease) I73.9 CAD (coronary artery disease) I25.10 Afib I48.11 Atrial fibrillation type: longstanding persistent
[2023-04-15] MEDS: atorvastatin 40 mg Tablet PO (20:42)
[2023-04-16] VITALS (7 sets, daily range): BP systolic 122–132; BP diastolic 71–75; PULSE 82–88; RESP 16–17; TEMP 36.4–36.8; O2SAT 91–96
[2023-04-16] MEDS: potassium chloride ER 20 mEq Tablet PO (08:06)
[2023-04-16] MEDS: gabapentin 100 mg Capsule PO (08:06)
[2023-04-16] MEDS: aspirin 81 mg EC Tablet PO (08:06)
[2023-04-16] MEDS: amiodarone 200 mg Tablet PO (08:06)
[2023-04-16] MEDS: FUROsemide 10 mg/mL SDV 2mL 20 MG IVP (08:58)
[2023-04-16 11:19] LABS: SARS Covid-2 Antigen negative (Negative)
--- NOTE | 2023-04-16 11:20 | P.DS_ITS ---
Discharge Providers Date of Admission: 04/14/23 22:00 Date of Discharge: April 16, 2023 Attending Provider at Admission: Elyssa Vargas MD Attending Provider at Discharge: Nicole Kilpatrick MD Primary Care Provider: PARISH Medel Diagnoses at Discharge Discharge Diagnosis (1) PVD (peripheral vascular disease): Status: Acute (2) Recurrent falls: Status: Acute (3) Vertigo: Status: Acute (4) Acute exacerbation of CHF (congestive heart failure): Status: Acute (5) Rheumatoid arthritis: Status: Acute Qualifiers: Rheumatoid arthritis location: unspecified site Rheumatoid factor presence: unspecified presence Qualified Code(s): M06.9 - Rheumatoid arthritis, unspecified Permanent problem details: Reported hx by pt (6) CAD (coronary artery disease): Status: Acute (7) GERD (gastroesophageal reflux disease): Status: Acute (8) Peripheral arterial disease: Status: Acute Reason for Visit Reason for Visit: weakness, afib Hospital Course Hospital Course 87y/o of atherosclerotic heart disease, status post coronary bypass surgery, status post PCI, intermittent atrial fibrillation, high blood pressure, dyslipidemia, rheumatoid arthritis, subclavian artery stenosis recently admitted at [facility] between 04/10-04/14 for generalized weakness and inability move around. On this admission, she was found to be in atrial fibrillation with rapid ventricular rate in the emergency room.? She received cardioversion in the ER following which she was converted to normal sinus rhythm. She was then started on amiodarone infusion was transitioned to po amiodaone at the time of discharge. ?Metoprolol wad attempted to be added but resulted in hypotension and was discontinued. ?She underwent ischemic evaluation with stress test which did not show any signs of reversible ischemia. On 04/10, her family noticed a right sided facial droop which was later not reproducible on MD and nurse exam. Her neurological exam remained non focal. CT head unremarkable.?It was discussed wi th family cannot exclude CVA as she does have risks.? At some point may consider MRI as outpatient; deferred carotid duplex at this time as She would not make a good surgical candidate even if there was carotid disease and she is otherwise on appropriate medical management with ASA, Eliquis and statins. She was discharged in stable condition on 04/14 however returned to the hospital the same night due to having sustained a fall at home. Patient had been recommended to ambulate with a walker due to her known history of orthostatic hypotension and for gait steadiness, however it appears she was not using her walker at that time. She additionally felt very weak and presyncopal and therefore presented to the emergency room. She was also diagnosed with acute diastolic CHF exacerbation for which she received IV Lasix. She has now been transitioned to p.o. Lasix at the time of discharge. She required 1.5 L/min supplemental O2 which has been weaned down to 0.5 L/min supplemental O2 via nasal cannula. She was noted to have orthostatic drop in blood pressures from 133 systolic to 101 systolic with change in position from lying down to standing. Has been instructed extensively to avoid sudden changes in position. To turn over to 1 side and then for sit on edge of the bed before attempting to get up. Compression stockings have also been recommended. She did not show signs of vertigo on PT evaluation. On her previous admission cardiology had suspected her to have tachybradycardia syndrome as heart rate was dropping down to 40s at one point. On this current admission she has not had any noted bradycardia episodes. She had A-fib with RVR on the night of admission for which she received digoxin. She is currently being discharged with amiodarone 200 mg p.o. twice daily and digoxin 125 mics daily for heart rate control. Recommended to follow-up with cardiology nurse practitioner in 1 week. An event monitor is also being arranged at discharge for suspected tachybradycardia syndrome which may warrant placement of a pacemaker. Physical Exam Narrative: General: No acute distress, AO x3 HEENT: PERRLA, pupils bilaterally equal and reactive, pallors not present Chest: Normal vesicular breath sounds, no added sounds, equal good air entry bilaterally CVS: S1-S2 regular, no murmurs, no tachycardia, no gallops, no rubs Abdomen: Soft, nontender, no organomegaly, bowel sounds present Neuro: No focal deficits, no facial deformity, AO x3, power 5/5 in all limbs Urinary Catheter Management: Alanis: Cath Placed During This Visit: yes Reason for Continuing Indwelling Catheter: Other Urinary Catheter Date of Insertion: 04/14/23 Urinary Catheter Time of Insertion: 22:18 Discharge Data Studies Completed and Pending Completed Studies During Hospitalization Category Date Time Status CT cervical spin wo con* [id number] Stat Cat Scan 08/09/23 19:[address] head wo con* [id number] Stat Cat Scan 04/14/23 19:06 Completed XR chest 1V portable [id number] Stat Exams 04/14/23 18:57 Completed Radiology Impressions Chest X-Ray 04/14/23 18:57 IMPRESSION: Increased pulmonary edema or pneumonia in the lung bases. Head CT 04/14/23 19:06 IMPRESSION: 1. No acute intracranial abnormality. 2. Inflammatory changes in the right paranasal sinuses. Cervical Spine CT 04/14/23 19:24 IMPRESSION: 1. No acute findings. 2. Multilevel degenerative changes. Laboratory Results WBC 8.5 10^3/uL (4.0-10.0) 04/15/23 04:40 RBC 3.00 10^6/uL (4.1-5.3) L 04/15/23 04:40 Hgb 10.0 g/dL (11.5-15.3) L 04/15/23 04:40 Hct 31.0 % (37.0-47.0) L 04/15/23 04:40 MCV 103.3 fl (81-99) H 04/15/23 04:40 MCH 33.3 pg (28.0-34.0) 04/15/23 04:40 MCHC 32.3 g/dL (30.0-36.0) 04/15/23 04:40 RDW 15.7 % (12.1-15.1) H 04/15/23 04:40 Plt Count 242 10^3/cmm (130-400) 04/15/23 04:40 MPV 9.9 fL (7.4-10.4) 04/15/23 04:40 Neut % (Auto) 78.5 % 04/15/23 04:40 Lymph % (Auto) 9.4 % 04/15/23 04:40 [place] % (Auto) 7.9 % 04/15/23 04:40 Eos % (Auto) 2.1 % 04/15/23 04:40 Baso % (Auto) 0.6 % 04/15/23 04:40 Neut # (Auto) 6.64 10^3/uL (1.8-7.7) 04/15/23 04:40 Lymph # (Auto) 0.8 10^3/uL (0.8-4.8) 04/15/23 04:40 [place] # (Auto) 0.7 10^3/uL (0.2-0.9) 04/15/23 04:40 Eos # (Auto) 0.2 10^3/uL (0.0-0.8) 04/15/23 04:40 Baso # (Auto) 0.1 10^3/uL (0.0-0.1) 04/15/23 04:40 Nucleated RBC % (auto) 0 % 04/15/23 04:40 Nucleated RBCs # 0.0 /100WBC 04/15/23 04:40 PT 13.50 SECONDS (12.1-14.9) 04/14/23 20:48 INR 1.00 (0.8-1.2) 04/14/23 20:48 Sodium 139 mmol/L (136-145) 04/15/23 04:40 Potassium 4.0 mmol/L (3.5-5.1) 04/15/23 04:40 Chloride 101 mmol/L (98-107) 04/15/23 04:40 Carbon Dioxide 27 mmol/L (22-29) 04/15/23 04:40 Anion Gap 15.0 (5-19) 04/15/23 04:40 BUN 14 mg/dL (8-23) 04/15/23 04:40 Creatinine 1.2 mg/dL (0.5-0.9) H 04/15/23 04:40 GFR Calculation Not Reportable 04/15/23 04:40 Glucose 94 mg/dL (65-115) 04/15/23 04:40 Calculated Osmolality 288 mOsm/kg (285-295) 04/15/23 04:40 Calcium 7.7 mg/dL (8.5-10.5) L 04/15/23 04:40 Magnesium 1.6 mg/dL (1.7-2.3) L 04/15/23 04:40 Total Bilirubin 0.6 mg/dL (0.15-1.2) 04/14/23 20:48 AST 33 U/L (0-32) H 04/14/23 20:48 ALT 19 U/L (0-33) 04/14/23 20:48 Alkaline Phosphatase 94 U/L (35-105) 04/14/23 20:48 Troponin T Baseline 55 ng/L (0-10) H 04/14/23 20:48 NT-Pro-B Natriuret Pep 1409 pg/mL (0-450) H 04/14/23 20:48 Total Protein 6.1 g/dL (6.6-8.7) L 04/14/23 20:48 Albumin 3.4 g/dL (3.5-5.2) L 04/14/23 20:48 Globulin 2.7 g/dL (1.3-4.6) 04/14/23 20:48 Urine Color Yellow (Yellow) 04/14/23 20:35 Urine Appearance Clear (CLEAR) 04/14/23 20:35 Urine pH 5 (5-7) 04/14/23 20:35 Ur Specific [place] 1.010 (1.005-1.030) 04/14/23 20:35 Urine Protein Neg (Negative) 04/14/23 20:35 Urine Glucose (UA) Norm (Normal) 04/14/23 20:35 Urine Ketones Negative (Negative) 04/14/23 20:35 Urine Blood Neg (Negative) 04/14/23 20:35 Urine Nitrate Negative (Negative) 04/14/23 20:35 Urine Bilirubin Neg (Negative) 04/14/23 20:35 Urine Urobilinogen Norm mg/dL (Negative) 04/14/23 20:35 Ur Leukocyte Esterase Negative (Negative) 04/14/23 20:35 SARS-CoV-2 Ag (Rapid) negative (Negative) 04/16/23 10:40 Vitals Last Vital Signs Temp 98.2 F 04/16/23 07:46 Pulse 85 04/16/23 07:46 Resp 17 04/16/23 07:46 BP 123/75 04/16/23 07:46 Pulse Ox 96 04/16/23 08:54 O2 Del Method Nasal Cannula 04/16/23 08:54 O2 Flow Rate 0.5 04/16/23 08:54 Discharge Plan Discharge Patient Disposition: Xfer SNF Condition: Stable Prescriptions: New aspirin 81 mg Tablet,Delayed Release (Dr/Ec) 81 mg PO DAILY 30 Days Qty: 30 0RF Continued potassium gluconate 595 mg (99 mg) tablet 595 mg PO DAILY PRN (Reason: unknown) ascorbic acid (vitamin C) 500 mg capsule 500 mg PO DAILY calcium carbonate 600 mg calcium (1,500 mg) tablet 600 mg PO DAILY cholecalciferol (vitamin D3) 50 mcg (2,000 unit) capsule 50 mcg PO DAILY PRN (Reason: unknown) (DME) Back brace See Rx Instructions .Route .MEDSUPPLY Qty: 1 0RF Rx Instructions: Fit patient for brace furosemide 20 mg tablet 20 mg PO QAM (DME) doughnut cushion See Rx Instructions .Route .MEDSUPPLY Qty: 1 0RF Rx Instructions: As directed prednisone 5 mg tablet 5 mg PO DAILY PRN (Reason: Pain) Qty: 60 0RF zinc oxide 40 % ointment 1 applic topical TID PRN (Reason: skin irritation) 30 Days Qty: 113 0RF tramadol 50 mg tablet 50 mg PO BID PRN (Reason: pain) Qty: 60 0RF (DME) accommodative orthotic See Rx Instructions .Route .MEDSUPPLY Qty: 1 0RF Rx Instructions: As directed by HIEU&O mecobalamin (vitamin B12) 1,000 mcg tablet,chewable 1,000 mcg PO DAILY Qty: 60 2RF gabapentin 100 mg capsule 100 mg PO BID Qty: 180 2RF nitroglycerin 400 mcg/spray spray,non-aerosol 1 spray translingual Q5M PRN (Reason: chest pain) Qty: 4.9 3RF Rx Instructions: do not exceed 3 doses per episode folic acid 1 mg tablet 1 mg PO TID Qty: 270 4RF Eliquis 2.5 mg tablet 2.5 mg PO BID Qty: 180 1RF lactase [Lactaid] 3,000 unit Tablet 3,000 - 9,000 unit PO DAILY PRN (Reason: unknown) loperamide-simethicone [Imodium Multi-Symptom Relief] 2-125 mg Tablet 1 tab PO PRN PRN (Reason: Diarrhea) levothyroxine [Tirosint] 88 mcg capsule 88 mcg PO QAM iu-ey-qroc-FA-Ca carb-vit K 18 mg iron-400 mcg-500 mg Tablet 1 tab PO DAILY Ocuvite Adult 50 Plus 250 mg (90 mg-160 mg) Capsule 1 cap PO DAILY Colon Health 1 cap PO QAM Focus Factor 1 tab PO DAILY Vinia Red Grape Powder Capsule 1 cap PO DAILY Viviscal 1 tab PO DAILY omeprazole 40 mg capsule,delayed release(DR/EC) 40 mg PO QAM methotrexate sodium 2.5 mg tablet 10 mg PO .ON AND WED Premarin 0.3 mg tablet 0.3 mg PO QAM atorvastatin 40 mg Tablet 40 mg PO BEDTIME 30 Days Qty: 30 0RF amiodarone [Pacerone] 200 mg Tablet 200 mg PO 0900,2100 30 Days Qty: 60 0RF Discontinued Repatha SureClick 140 mg/mL pen injector 140 mg SUBCUT Q14D Qty: 2 12RF Rx Instructions: on sundays Discharge Orders: Discharge Order (Routine); Ordered 04/16/23 Ordered By: Nicole Kilpatrick Other Ambulatory Orders: MCT/Event Monitor 30 Days (Routine) Timeframe: [id number] Facility: [facility] - Location: Radiology Ordered By: Nicole Kilpatrick Referrals: [facility] [Outside] Alexa Benavides FNP [Primary Care Provider] - 1 week Patient Instructions: Opioid Safety Activity Restrictions/Additional Instructions: Per Mary @ [facility]: Cardiac event monitor will be mailed to facility today. When they recieve just follow the instructions included with the monitor. If you have any questions please contact [facility] @ [phone]. Please follow up with PCP to reassess need for conjugated estrogens in this elderly patient with ischemic heart disease , estrogens may need to be discontinued Discharge Attestations Time Spent in Discharge Care*: greater than 30 min Quality Metrics Clinical Quality Measures [ No reported AMI, CVA or VTE this stay] Coding Level of Care Code Acute Code for Chg Fwd Diagnoses PVD (peripheral vascular disease) I73.9 Recurrent falls R29.6 Vertigo R42 Acute exacerbation of CHF (congestive heart failure) I50.9 Rheumatoid arthritis M06.9 Rheumatoid arthritis location: unspecified site Rheumatoid factor presence: unspecified presence CAD (coronary artery disease) I25.10 GERD (gastroesophageal reflux disease) K21.9 Peripheral arterial disease I73.9
--- NOTE | 2023-04-16 14:08 | PM.PN ---
Subjective Subjective: Patient is stable. Heart rate is stable. Vitals/I&O/Wt Last Vital Signs Temp 98.0 F 04/16/23 12:13 Pulse 88 04/16/23 12:13 Resp 16 04/16/23 12:13 BP 124/73 04/16/23 12:13 Pulse Ox 91 04/16/23 12:13 O2 Del Method Room Air 04/16/23 11:49 O2 Flow Rate 0.5 04/16/23 08:54 04/15/23 04/16/23 04/16/23 22:59 06:59 14:59 Intake Total 120 / 480 880 / 1360 Output Total 450 / 450 Balance 120 / 480 430 / 910 Weight last 48 hrs Weight 140 lb Physical Exam Narrative: GENERAL: Patient is alert, awake and oriented x3. [] NECK: No jugular vein distension. [] HEENT: No cyanosis. No icterus. No pallor. [] HEART: Regular S1 and S2. No murmur, rub or gallop. [] LUNGS: Clear to auscultate bilaterally. [] CENTRAL NERVOUS SYSTEM: Grossly nonfocal. [] EXTREMITIES: Lower extremities with 1+ edema bilaterally. Pulses palpable in the lower extremities, both dorsalis pedis and posterior tibial. [] Urinary Catheter Management: Alanis: Cath Placed During This Visit: yes Reason for Continuing Indwelling Catheter: Other Urinary Catheter Date of Insertion: 04/14/23 Urinary Catheter Time of Insertion: 22:18 Data 04/15/23 04:40 04/15/23 04:40 A&P Assessment and plan (1) Recurrent falls: (2) PVD (peripheral vascular disease): (3) CAD (coronary artery disease): (4) Afib: Qualifiers: Atrial fibrillation type: longstanding persistent Qualified Code(s): I48.11 - Longstanding persistent atrial fibrillation Plan Heart rate is staying stable. Can be discharged home with event monitor. Continue amiodarone and digoxin. Continue anticoagulation Thank you for involving us with care of this patient. Please call with questions. Attestations Medical Necessity Statement*: Care expected to cross 2 midnights. Coding Level of Care Code Acute Code for Chg Fwd Diagnoses Recurrent falls R29.6 PVD (peripheral vascular disease) I73.9 CAD (coronary artery disease) I25.10 Afib I48.11 Atrial fibrillation type: longstanding persistent
--- NOTE | 2023-04-16 16:52 | PC.NURSE ---
This nurse removed Alanis catheter before DC 10 ml out of the balloon, catheter intact, patient tolerated well, 650 emptied from Alanis bag.
== END 2023-04-16 13:13 | disposition skilled nursing facility (03) | DRG 291 ==
LOC: ER 19:55 → MEDSURG 22:01
PROVIDERS: Admitting Provider Internal Medicine; Emergency Provider Emergency Medicine; PCP Registered Nurse; Visit Provider Student in an Organized Health Care Education/Training Program
DX: I11.0 Hypertensive heart disease with heart failure (principal); I50.33 Acute on chronic diastolic (congestive) heart failure; W18.30XA Fall on same level, unspecified, initial encounter; Z79.52 Long term (current) use of systemic steroids; Z79.82 Long term (current) use of aspirin; I25.10 Atherosclerotic heart disease of native coronary artery without angina pectoris; E78.5 Hyperlipidemia, unspecified; E03.9 Hypothyroidism, unspecified; M06.9 Rheumatoid arthritis, unspecified; Z91.81 History of falling; Z98.61 Coronary angioplasty status; Z79.01 Long term (current) use of anticoagulants; I95.1 Orthostatic hypotension
CPT/HCPCS: 36415; 51702; 70450; 71045; 72125; 80048; 80053; 81003; 83735; 83880; 84484; 85025; 85610; 87426; 93005; 96374; 97116; 97163; 97530; 99285; J1160; J1940

== ENCOUNTER → 2023-05-26 11:01 | Outpatient (BNVA) | payer MEDICARE, OTHER, SELFPAY | PROVIDERS: PCP Registered Nurse; Visit Provider Nurse Practitioner Family | DX: I48.91 Unspecified atrial fibrillation (principal) | CPT/HCPCS: 99213 ==

== ENCOUNTER → 2023-06-11 11:24 | Outpatient (BNVA) | payer MEDICARE, OTHER, SELFPAY | PROVIDERS: PCP Registered Nurse; Visit Provider Registered Nurse | DX: K52.1 Toxic gastroenteritis and colitis (principal); T36.95XA Adverse effect of unspecified systemic antibiotic, initial encounter | CPT/HCPCS: 87324; 87449 ==

== ENCOUNTER → 2023-06-16 13:03 | Outpatient (BNVA) | payer MEDICARE, OTHER, SELFPAY | PROVIDERS: PCP Registered Nurse; Visit Provider Thoracic Surgery (Cardiothoracic Vascular Surgery) | DX: I96 Gangrene, not elsewhere classified (principal); L89.620 Pressure ulcer of left heel, unstageable | CPT/HCPCS: 11042; 99213 ==

== ENCOUNTER → 2023-06-23 13:01 | Outpatient (BNVA) | payer MEDICARE, OTHER, SELFPAY | PROVIDERS: PCP Registered Nurse; Visit Provider Thoracic Surgery (Cardiothoracic Vascular Surgery) | DX: I96 Gangrene, not elsewhere classified (principal); L89.620 Pressure ulcer of left heel, unstageable | CPT/HCPCS: 97597; A6021; A6252 ==

== ENCOUNTER → 2023-07-01 13:02 | Outpatient (BNVA) | payer MEDICARE, OTHER, SELFPAY | PROVIDERS: PCP Registered Nurse; Visit Provider Nurse Practitioner Family | DX: I96 Gangrene, not elsewhere classified (principal); L89.620 Pressure ulcer of left heel, unstageable | CPT/HCPCS: 97597 ==

== ENCOUNTER → 2023-07-07 10:11 | Outpatient (BNVA) | payer MEDICARE, OTHER, SELFPAY | PROVIDERS: PCP Registered Nurse; Visit Provider Thoracic Surgery (Cardiothoracic Vascular Surgery) | DX: I96 Gangrene, not elsewhere classified (principal); L89.620 Pressure ulcer of left heel, unstageable | CPT/HCPCS: 97597; A6021; A6252 ==

== ENCOUNTER → 2023-07-14 10:47 | Outpatient (BNVA) | payer MEDICARE, OTHER, SELFPAY | PROVIDERS: PCP Registered Nurse; Visit Provider Nurse Practitioner Family | DX: I48.91 Unspecified atrial fibrillation (principal); I10 Essential (primary) hypertension; I96 Gangrene, not elsewhere classified; L89.620 Pressure ulcer of left heel, unstageable | CPT/HCPCS: 97597; 99213; A6210; A6251 ==

== ENCOUNTER → 2023-07-21 12:58 | Outpatient (BNVA) | payer MEDICARE, OTHER, SELFPAY | PROVIDERS: PCP Registered Nurse; Visit Provider Thoracic Surgery (Cardiothoracic Vascular Surgery) | DX: I96 Gangrene, not elsewhere classified (principal); L89.620 Pressure ulcer of left heel, unstageable | CPT/HCPCS: 97597; A6210 ==

== ENCOUNTER → 2023-07-28 09:59 | Outpatient (BNVA) | payer MEDICARE, OTHER, SELFPAY | PROVIDERS: PCP Registered Nurse; Visit Provider Internal Medicine Cardiovascular Disease | DX: I48.91 Unspecified atrial fibrillation (principal); I25.10 Atherosclerotic heart disease of native coronary artery without angina pectoris; I73.9 Peripheral vascular disease, unspecified; I11.0 Hypertensive heart disease with heart failure; I50.9 Heart failure, unspecified; E03.9 Hypothyroidism, unspecified | CPT/HCPCS: 99214 ==

== ENCOUNTER → 2023-08-04 13:02 | Outpatient (BNVA) | payer MEDICARE, OTHER, SELFPAY | PROVIDERS: PCP Registered Nurse; Visit Provider Nurse Practitioner Family | DX: I96 Gangrene, not elsewhere classified (principal); L89.623 Pressure ulcer of left heel, stage 3 | CPT/HCPCS: 97597; A6210 ==

== ENCOUNTER → 2023-08-11 12:56 | Outpatient (BNVA) | payer MEDICARE, OTHER, SELFPAY | PROVIDERS: PCP Registered Nurse; Visit Provider Thoracic Surgery (Cardiothoracic Vascular Surgery) | DX: I96 Gangrene, not elsewhere classified (principal); L89.623 Pressure ulcer of left heel, stage 3 | CPT/HCPCS: 97597; A6021; A6212 ==

== ENCOUNTER → 2023-08-18 13:06 | Outpatient (BNVA) | payer MEDICARE, OTHER, SELFPAY | PROVIDERS: PCP Registered Nurse; Visit Provider Thoracic Surgery (Cardiothoracic Vascular Surgery) | DX: Z09 Encounter for follow-up examination after completed treatment for conditions other than malignant neoplasm (principal); Z87.2 Personal history of diseases of the skin and subcutaneous tissue | CPT/HCPCS: 99212 ==

== ENCOUNTER → 2023-09-29 09:50 | Outpatient (BNVA) | payer MEDICARE, OTHER, SELFPAY | PROVIDERS: PCP Registered Nurse; Visit Provider Dermatology | DX: Z85.820 Personal history of malignant melanoma of skin (principal); Z85.828 Personal history of other malignant neoplasm of skin; L82.0 Inflamed seborrheic keratosis; L82.1 Other seborrheic keratosis; D18.01 Hemangioma of skin and subcutaneous tissue | CPT/HCPCS: 11102; 17000; 17110; 99213 ==

== ENCOUNTER → 2023-10-18 09:23 | Outpatient (BNVA) | payer MEDICARE, OTHER, SELFPAY | PROVIDERS: PCP Registered Nurse; Visit Provider Dermatology | DX: C44.311 Basal cell carcinoma of skin of nose (principal) | CPT/HCPCS: 13152; 17311 ==

== ENCOUNTER 2023-10-24 14:49 | Emergency (ER) | payer MEDICARE, OTHER, SELFPAY ==
[2023-10-24 14:56] VITALS: BP 127/64; PULSE 50; RESP 14; TEMP 36.3; O2SAT 98; BMI 22.3
--- NOTE | 2023-10-24 15:23 | XRR_ITS ---
PROCEDURE INFORMATION: Exam: XR Chest Exam date and time: 10/24/2023 3:51 PM Age: 88 years old Clinical indication: Prior surgery; Surgery date: 6+ months; Patient HX: Fluctuation in BP; Weakness; HX cabg TECHNIQUE: Imaging protocol: Radiologic exam of the chest. Views: 1 view. COMPARISON: CR (CHEST, ) 04/14/2023 7:02 PM FINDINGS: Lungs: Right middle lobe, and left lower lobe bronchiectatic lung changes in linear atelectasis/scarring. Pleural spaces: No pneumothorax, there is minimal blunting of the left costophrenic angle which may represent compressive atelectatic changes versus small pleural effusion. Heart/Mediastinum: Unremarkable. No cardiomegaly. Bones/joints: Status post median sternotomy wires. XR/XR chest 1V [id number] IMPRESSION: 1. No pneumothorax, there is minimal blunting of the left costophrenic angle which may represent compressive atelectatic changes versus small pleural effusion. 2. Right middle lobe, and left lower lobe bronchiectatic lung changes and linear atelectasis/scarring.
--- NOTE | 2023-10-24 15:24 | W.ED.GENADLT ---
Documented by User: Mirian Barroso MD 10/24/23 18:01 HPI - General Adult General: Chief complaint: General Medical Stated complaint: blood pressure issues Time Seen by Provider: 10/24/23 15:20 History of Present Illness: 88-year-old female with history of coronary artery disease, A-fib, anxiety and hyperlipidemia who presents to the emergency room with 1 day of weakness, lightheadedness, headache and low blood pressure at home. She states she talked to her primary who told her to try to drink some salt water. This does not seem to have helped. She complains of some urinary symptoms. She says she felt like she really had to go but barely made any urine. No fevers. No cough. No shortness of breath. No abdominal pain. No altered mental status. No focal motor deficits. She has a dressing on her nose from basal cell carcinoma excision surgery that she had done with ENT recently. Review of Systems Narrative: Constitutional symptoms: Negative except as documented in HPI. Skin symptoms: Negative except as documented in HPI. Eye symptoms: Negative except as documented in HPI. ENMT symptoms: Negative except as documented in HPI. Respiratory symptoms: Negative except as documented in HPI. Cardiovascular symptoms: Negative except as documented in HPI. Gastrointestinal symptoms: Negative except as documented in HPI. Genitourinary symptoms: Negative except as documented in HPI. Musculoskeletal symptoms: Negative except as documented in HPI. Neurologic symptoms: Negative except as documented in HPI. Psychiatric symptoms: Negative except as documented in HPI. Endocrine symptoms: Negative except as documented in HPI. PFSH ED PFSH: Medical History Anal sphincter incompetence History of nonmelanoma skin cancer History of melanoma Scoliosis CAD (coronary artery disease) Rheumatoid arthritis Reported hx by pt Scoliosis (and kyphoscoliosis), idiopathic Anxiety and depression Afib Menopause Hypothyroidism Angina pectoris GERD (gastroesophageal reflux disease) Recurrent urinary tract infection Hyperlipidemia Hypertension Surgical History History of hand surgery History of open heart surgery 2000 History of hysterectomy History of intestinal surgery History of tonsillectomy Hx of foot surgery right foot Family History Mother Diabetes Other Parkinson disease Social History (Reviewed 10/12/23 @ 09:58 by ADRIANNE Ambriz Smoking and tobacco/nicotine status: never used tobacco/nicotine Alcohol intake: never Substance/Drug Use: never Adopted: No Caregiver/support person: No Lives independently: No Household members: family service: No Sexually active: No Do you think of yourself as: Straight/Heterosexual Current gender identity: Female Physical Exam Narrative: EXAM NARRATIVE: General: Alert, no acute distress. Skin: Warm, dry. Head: Normocephalic, atraumatic. Neck: Supple, trachea midline. Eye: Extraocular movements are intact. Ears, nose, mouth and throat: Tacky oral moist. Dressing in place on nose. Cardiovascular: Regular, Normal peripheral perfusion. Respiratory: Lungs are clear to auscultation, respirations are non-labored, breath sounds are equal, Symmetrical chest wall expansion. Gastrointestinal: Soft, Nontender, Non distended, Normal bowel sounds. Musculoskeletal: Normal ROM, no deformity. Neurological: Alert and oriented, No focal neurological deficit observed. Psychiatric: Cooperative, appropriate mood & affect. Course Vital Signs: Vital signs: Vital Signs Temperature 97.4 F L 10/24/23 14:56 Pulse Rate 61 10/24/23 20:20 Respiratory Rate 16 10/24/23 19:03 Blood Pressure 175/61 10/24/23 20:20 Pulse Oximetry 99 10/24/23 19:03 Oxygen Delivery Me thod Room Air 10/24/23 19:03 MDM - General Adult Medical Decision Making Medical decision making: Differential diagnosis including but not limited to and based on the above HPI, review of systems and physical exam: Dehydration versus infection. Orders to evaluate differential diagnosis: CBC, BMP, urinalysis, chest x-ray Lab Review: Laboratory results were reviewed and interpreted by myself the emergency room physician. No leukocytosis. Chronic anemia with a hemoglobin of 9.8. She does have some acute renal insufficiency. Her BUN and creatinine are 28 and 1.6. She normally runs around 18 and 1. Chest x-ray: Sternotomy wires in place. No acute process. No infiltrate. No pneumothorax. No cardiomegaly. This was reviewed and interpreted by myself the ER physician. Urine has still not been collected. Fluids were ordered but her IV has infiltrated and that is being restarted. I am passing her on at shift change to Lab Data 10/24/23 15:50 10/24/23 15:50 Radiology Impressions Chest X-Ray 10/24/23 15:23 IMPRESSION: 1. No pneumothorax, there is minimal blunting of the left costophrenic angle which may represent compressive atelectatic changes versus small pleural effusion. 2. Right middle lobe, and left lower lobe bronchiectatic lung changes and linear atelectasis/scarring. Head CT 10/24/23 19:23 IMPRESSION: 1. No acute intracranial abnormality. 2. Partially visualized bony erosion changes seen at the base of the skull, and sphenoid bone. Likely a sequela of prior inflammatory changes of the sinuses. Laboratory Results WBC 7.53 10^3/uL (3.29-11.43) 10/24/23 15:50 RBC 2.98 10^6/uL (3.85-5.65) L 10/24/23 15:50 Hgb 9.80 g/dL (11.27-16.99) L 10/24/23 15:50 Hct 32.0 % (36-47) L 10/24/23 15:50 MCV 107.4 fl (85-98) H 10/24/23 15:50 MCH 32.9 pg (27-33) 10/24/23 15:50 MCHC 30.6 g/dL (30-55) 10/24/23 15:50 RDW 15.2 % (12.1-15.1) H 10/24/23 15:50 Plt Count 297 10^3/cmm (157-399) 10/24/23 15:50 MPV 10.2 fL (7.4-10.4) 10/24/23 15:50 Neut % (Auto) 77.2 % 10/24/23 15:50 Lymph % (Auto) 14.6 % 10/24/23 15:50 [place] % (Auto) 4.0 % 10/24/23 15:50 Eos % (Auto) 3.1 % 10/24/23 15:50 Baso % (Auto) 0.7 % 10/24/23 15:50 Neut # (Auto) 5.82 10^3/uL (1.8-7.7) 10/24/23 15:50 Lymph # (Auto) 1.1 10^3/uL (0.8-4.8) 10/24/23 15:50 [place] # (Auto) 0.3 10^3/uL (0.2-0.9) 10/24/23 15:50 Eos # (Auto) 0.2 10^3/uL (0.0-0.8) 10/24/23 15:50 Baso # (Auto) 0.1 10^3/uL (0.0-0.1) 10/24/23 15:50 Nucleated RBC % (auto) 0 % 10/24/23 15:50 Nucleated RBCs # 0.0 /100WBC 10/24/23 15:50 Sodium 139 mmol/L (136-145) 10/24/23 15:50 Potassium 5.0 mmol/L (3.5-5.1) 10/24/23 15:50 Chloride 104 mmol/L (98-107) 10/24/23 15:50 Carbon Dioxide 21 mmol/L (22-29) L 10/24/23 15:50 Anion Gap 19.0 (5-19) 10/24/23 15:50 BUN 28 mg/dL (8-23) H 10/24/23 15:50 Creatinine 1.6 mg/dL (0.5-0.9) H 10/24/23 15:50 GFR Calculation Not Reportable 10/24/23 15:50 Glucose 124 mg/dL (65-115) H 10/24/23 15:50 Calculated Osmolality 295 mOsm/kg (285-295) 10/24/23 15:50 Calcium 8.3 mg/dL (8.5-10.5) L 10/24/23 15:50 Total Bilirubin 0.3 mg/dL (0.15-1.2) 10/24/23 15:50 AST 15 U/L (0-32) 10/24/23 15:50 ALT < 5 U/L (0-33) 10/24/23 15:50 Alkaline Phosphatase 118 U/L (35-105) H 10/24/23 15:50 Total Protein 6.9 g/dL (6.6-8.7) 10/24/23 15:50 Albumin 3.6 g/dL (3.5-5.2) 10/24/23 15:50 Globulin 3.3 g/dL (1.3-4.6) 10/24/23 15:50 Urine Color Yellow (Yellow) 10/24/23 18:50 Urine Appearance Clear (CLEAR) 10/24/23 18:50 Urine pH 5 (5-7) 10/24/23 18:50 Ur Specific [place] 1.010 (1.005-1.030) 10/24/23 18:50 Urine Protein Neg (Negative) 10/24/23 18:50 Urine Glucose (UA) Norm (Normal) 10/24/23 18:50 Urine Ketones Negative (Negative) 10/24/23 18:50 Urine Blood Neg (Negative) 10/24/23 18:50 Urine Nitrate Negative (Negative) 10/24/23 18:50 Urine Bilirubin Neg (Negative) 10/24/23 18:50 Urine Urobilinogen Norm mg/dL (Negative) 10/24/23 18:50 Ur Leukocyte Esterase Negative (Negative) 10/24/23 18:50 Urine RBC 0-4 /hpf (0-2) H 10/24/23 18:50 Urine WBC 0-4 /hpf (0-5) H 10/24/23 18:50 Ur Squamous Epith Cells 0-4 /hpf (0-5) H 10/24/23 18:50 Amorphous Sediment Not Reportable 10/24/23 18:50 Urine Bacteria Trace /hpf (NONE) 10/24/23 18:50 Hyaline Casts 0-4 /lpf H 10/24/23 18:50 Urine Mucus 1+ /hpf 10/24/23 18:50 Influenza Type A Ag negative (Negative) 10/24/23 18:34 Influenza Type B Ag negative (Negative) 10/24/23 18:34 SARS-CoV-2 Ag (Rapid) Negative (Negative) 10/24/23 18:34 All radiology interpretation(s) finalized by discharge Discharge Plan Discharge Patient Disposition: Home Clinical Impression: Generalized weakness Condition: Stable Prescriptions: No Action (DME) Back brace See Rx Instructions .Route .MEDSUPPLY Qty: 1 0RF Rx Instructions: Fit patient for brace (DME) doughnut cushion See Rx Instructions .Route .MEDSUPPLY Qty: 1 0RF Rx Instructions: As directed methotrexate sodium 10 mg tablet 10 mg PO .COMPLEX Rx Instructions: 10 mg orally on Wednesdays; aspirin 81 mg tablet,delayed release (DR/EC) 81 mg PO DAILY furosemide 20 mg tablet 20 mg PO DAILY 90 Days Qty: 90 0RF potassium chloride [Klor-Con] 20 mEq packet 20 meq PO DAILY 100 Days Qty: 100 1RF (DME) accommodative orthotic See Rx Instructions .Route .MEDSUPPLY Qty: 1 0RF Rx Instructions: As directed by HIEU&O amiodarone 200 mg tablet 200 mg PO DAILY Qty: 90 3RF dabigatran etexilate [Pradaxa] 150 mg capsule 150 mg PO BID Qty: 180 3RF folic acid 1 mg tablet 1 mg PO TID Qty: 270 4RF tramadol 50 mg tablet 50 mg PO BID PRN (Reason: pain) 30 Days Qty: 45 2RF calcium carbonate [Tums] 200 mg calcium (500 mg) tablet,chewable 200 mg PO BID PRN (Reason: dyspepsia) 30 Days Qty: 60 2RF nitroglycerin 400 mcg/spray spray,non-aerosol 1 spray translingual Q5M PRN (Reason: chest pain) Qty: 4.9 3RF Rx Instructions: do not exceed 3 doses per episode Zyrtec 10 mg capsule 10 mg PO DAILY PRN (Reason: allergy symptoms) 30 Days Qty: 30 0RF acetaminophen 650 mg Tablet Extended Release 650 mg PO Q4H PRN (Reason: Pain (Scale Score 1-3)) Vitamin C 500 mg Tablet 2,000 mg PO DAILY zinc gluconate 50 mg Tablet 50 mg PO DAILY iSSimple 3 billion cell Capsule 1 cap PO QAM atorvastatin 40 mg tablet 40 mg PO DAILY gabapentin 600 mg tablet 600 mg PO QPM omeprazole 40 mg capsule,delayed release(DR/EC) 40 mg PO BID Tirosint 100 mcg capsule 100 mcg PO DAILY loperamide-simethicone [Imodium Multi-Symptom Relief] 2-125 mg Tablet 1 tab PO PRN PRN (Reason: Diarrhea) Discharge Orders: Discharge ED (Routine); Ordered 10/24/23 Ordered By: Elmo Turcios Referrals: Alexa Benavides, [employer] K[employer]ITTER [Primary Care Provider] - 1-3 days Discharge Diet: Advance as tolerated Discharge Activity: Resume usual activity Patient Instructions: Weakness (ED) Coding Level of Care Code ED Aircraft Powertrain Repairer for Chg Fwd Documented by User: Elmo Turcios MD 10/24/23 21:01 HPI - General Adult General: Chief complaint: General Medical Stated complaint: blood pressure issues Time Seen by Provider: 10/24/23 15:20 PFSH ED PFSH: Medical History Anal sphincter incompetence History of nonmelanoma skin cancer History of melanoma Scoliosis CAD (coronary artery disease) Rheumatoid arthritis Reported hx by pt Scoliosis (and kyphoscoliosis), idiopathic Anxiety and depression Afib Menopause Hypothyroidism Angina pectoris GERD (gastroesophageal reflux disease) Recurrent urinary tract infection Hyperlipidemia Hypertension Surgical History History of hand surgery History of open heart surgery 2000 History of hysterectomy History of intestinal surgery History of tonsillectomy Hx of foot surgery right foot Family History Mother Diabetes Other Parkinson disease Social History Smoking and tobacco/nicotine status: never used tobacco/nicotine Alcohol intake: never Substance/Drug Use: never Adopted: No Caregiver/support person: No Lives independently: No Household members: family service: No Sexually active: No Do you think of yourself as: Straight/Heterosexual Current gender identity: Female Course Vital Signs: Vital signs: Vital Signs Temperature 97.4 F L 10/24/23 14:56 Pulse Rate 61 10/24/23 20:20 Respiratory Rate 16 10/24/23 19:03 Blood Pressure 175/61 10/24/23 20:20 Pulse Oximetry 99 10/24/23 19:03 Oxygen Delivery Me thod Room Air 10/24/23 19:03 MDM - General Adult Medical Decision Making Medical decision making: Differential diagnosis including but not limited to and based on the above HPI, review of systems and physical exam: Dehydration versus infection. Orders to evaluate differential diagnosis: CBC, BMP, urinalysis, chest x-ray Lab Review: Laboratory results were reviewed and interpreted by myself the emergency room physician. No leukocytosis. Chronic anemia with a hemoglobin of 9.8. She does have some acute renal insufficiency. Her BUN and creatinine are 28 and 1.6. She normally runs around 18 and 1. Chest x-ray: Sternotomy wires in place. No acute process. No infiltrate. No pneumothorax. No cardiomegaly. This was reviewed and interpreted by myself the ER physician. Urine has still not been collected. Fluids were ordered but her IV has infiltrated and that is being restarted. I am passing her on at shift change to Patient presents here with generalized weakness she does have slight ANGELES she believes she been taking 2 of her water pills a day I informed her to go back to 1 daily she is to monitor blood pressure over the next week and follow-up with her PCP she ambulated the halls here well she is return if worsening she understands agrees to plan Medical Records I reviewed the patient's medical records. Lab Data I reviewed the patient's lab results. 10/24/23 15:50 10/24/23 15:50 Radiology Impressions Chest X-Ray 10/24/23 15:23 IMPRESSION: 1. No pneumothorax, there is minimal blunting of the left costophrenic angle which may represent compressive atelectatic changes versus small pleural effusion. 2. Right middle lobe, and left lower lobe bronchiectatic lung changes and linear atelectasis/scarring. Head CT 10/24/23 19:23 IMPRESSION: 1. No acute intracranial abnormality. 2. Partially visualized bony erosion changes seen at the base of the skull, and sphenoid bone. Likely a sequela of prior inflammatory changes of the sinuses. Laboratory Results WBC 7.53 10^3/uL (3.29-11.43) 10/24/23 15:50 RBC 2.98 10^6/uL (3.85-5.65) L 10/24/23 15:50 Hgb 9.80 g/dL (11.27-16.99) L 10/24/23 15:50 Hct 32.0 % (36-47) L 10/24/23 15:50 MCV 107.4 fl (85-98) H 10/24/23 15:50 MCH 32.9 pg (27-33) 10/24/23 15:50 MCHC 30.6 g/dL (30-55) 10/24/23 15:50 RDW 15.2 % (12.1-15.1) H 10/24/23 15:50 Plt Count 297 10^3/cmm (157-399) 10/24/23 15:50 MPV 10.2 fL (7.4-10.4) 10/24/23 15:50 Neut % (Auto) 77.2 % 10/24/23 15:50 Lymph % (Auto) 14.6 % 10/24/23 15:50 [place] % (Auto) 4.0 % 10/24/23 15:50 Eos % (Auto) 3.1 % 10/24/23 15:50 Baso % (Auto) 0.7 % 10/24/23 15:50 Neut # (Auto) 5.82 10^3/uL (1.8-7.7) 10/24/23 15:50 Lymph # (Auto) 1.1 10^3/uL (0.8-4.8) 10/24/23 15:50 [place] # (Auto) 0.3 10^3/uL (0.2-0.9) 10/24/23 15:50 Eos # (Auto) 0.2 10^3/uL (0.0-0.8) 10/24/23 15:50 Baso # (Auto) 0.1 10^3/uL (0.0-0.1) 10/24/23 15:50 Nucleated RBC % (auto) 0 % 10/24/23 15:50 Nucleated RBCs # 0.0 /100WBC 10/24/23 15:50 Sodium 139 mmol/L (136-145) 10/24/23 15:50 Potassium 5.0 mmol/L (3.5-5.1) 10/24/23 15:50 Chloride 104 mmol/L (98-107) 10/24/23 15:50 Carbon Dioxide 21 mmol/L (22-29) L 10/24/23 15:50 Anion Gap 19.0 (5-19) 10/24/23 15:50 BUN 28 mg/dL (8-23) H 10/24/23 15:50 Creatinine 1.6 mg/dL (0.5-0.9) H 10/24/23 15:50 GFR Calculation Not Reportable 10/24/23 15:50 Glucose 124 mg/dL (65-115) H 10/24/23 15:50 Calculated Osmolality 295 mOsm/kg (285-295) 10/24/23 15:50 Calcium 8.3 mg/dL (8.5-10.5) L 10/24/23 15:50 Total Bilirubin 0.3 mg/dL (0.15-1.2) 10/24/23 15:50 AST 15 U/L (0-32) 10/24/23 15:50 ALT < 5 U/L (0-33) 10/24/23 15:50 Alkaline Phosphatase 118 U/L (35-105) H 10/24/23 15:50 Total Protein 6.9 g/dL (6.6-8.7) 10/24/23 15:50 Albumin 3.6 g/dL (3.5-5.2) 10/24/23 15:50 Globulin 3.3 g/dL (1.3-4.6) 10/24/23 15:50 Urine Color Yellow (Yellow) 10/24/23 18:50 Urine Appearance Clear (CLEAR) 10/24/23 18:50 Urine pH 5 (5-7) 10/24/23 18:50 Ur Specific [place] 1.010 (1.005-1.030) 10/24/23 18:50 Urine Protein Neg (Negative) 10/24/23 18:50 Urine Glucose (UA) Norm (Normal) 10/24/23 18:50 Urine Ketones Negative (Negative) 10/24/23 18:50 Urine Blood Neg (Negative) 10/24/23 18:50 Urine Nitrate Negative (Negative) 10/24/23 18:50 Urine Bilirubin Neg (Negative) 10/24/23 18:50 Urine Urobilinogen Norm mg/dL (Negative) 10/24/23 18:50 Ur Leukocyte Esterase Negative (Negative) 10/24/23 18:50 Urine RBC 0-4 /hpf (0-2) H 10/24/23 18:50 Urine WBC 0-4 /hpf (0-5) H 10/24/23 18:50 Ur Squamous Epith Cells 0-4 /hpf (0-5) H 10/24/23 18:50 Amorphous Sediment Not Reportable 10/24/23 18:50 Urine Bacteria Trace /hpf (NONE) 10/24/23 18:50 Hyaline Casts 0-4 /lpf H 10/24/23 18:50 Urine Mucus 1+ /hpf 10/24/23 18:50 Influenza Type A Ag negative (Negative) 10/24/23 18:34 Influenza Type B Ag negative (Negative) 10/24/23 18:34 SARS-CoV-2 Ag (Rapid) Negative (Negative) 10/24/23 18:34 Discharge Plan Discharge Patient Disposition: Home Clinical Impression: Generalized weakness Condition: Stable Prescriptions: No Action (DME) Back brace See Rx Instructions .Route .MEDSUPPLY Qty: 1 0RF Rx Instructions: Fit patient for brace (DME) doughnut cushion See Rx Instructions .Route .MEDSUPPLY Qty: 1 0RF Rx Instructions: As directed methotrexate sodium 10 mg tablet 10 mg PO .COMPLEX Rx Instructions: 10 mg orally on Wednesdays; aspirin 81 mg tablet,delayed release (DR/EC) 81 mg PO DAILY furosemide 20 mg tablet 20 mg PO DAILY 90 Days Qty: 90 0RF potassium chloride [Klor-Con] 20 mEq packet 20 meq PO DAILY 100 Days Qty: 100 1RF (DME) accommodative orthotic See Rx Instructions .Route .MEDSUPPLY Qty: 1 0RF Rx Instructions: As directed by HIEU&O amiodarone 200 mg tablet 200 mg PO DAILY Qty: 90 3RF dabigatran etexilate [Pradaxa] 150 mg capsule 150 mg PO BID Qty: 180 3RF folic acid 1 mg tablet 1 mg PO TID Qty: 270 4RF tramadol 50 mg tablet 50 mg PO BID PRN (Reason: pain) 30 Days Qty: 45 2RF calcium carbonate [Tums] 200 mg calcium (500 mg) tablet,chewable 200 mg PO BID PRN (Reason: dyspepsia) 30 Days Qty: 60 2RF nitroglycerin 400 mcg/spray spray,non-aerosol 1 spray translingual Q5M PRN (Reason: chest pain) Qty: 4.9 3RF Rx Instructions: do not exceed 3 doses per episode Zyrtec 10 mg capsule 10 mg PO DAILY PRN (Reason: allergy symptoms) 30 Days Qty: 30 0RF acetaminophen 650 mg Tablet Extended Release 650 mg PO Q4H PRN (Reason: Pain (Scale Score 1-3)) Vitamin C 500 mg Tablet 2,000 mg PO DAILY zinc gluconate 50 mg Tablet 50 mg PO DAILY iSSimple 3 billion cell Capsule 1 cap PO QAM atorvastatin 40 mg tablet 40 mg PO DAILY gabapentin 600 mg tablet 600 mg PO QPM omeprazole 40 mg capsule,delayed release(DR/EC) 40 mg PO BID Tirosint 100 mcg capsule 100 mcg PO DAILY loperamide-simethicone [Imodium Multi-Symptom Relief] 2-125 mg Tablet 1 tab PO PRN PRN (Reason: Diarrhea) Discharge Orders: Discharge ED (Routine); Ordered 10/24/23 Ordered By: Elmo Turcios Referrals: Alexa Benavides, [employer] KNITTER [Primary Care Provider] - 1-3 days Discharge Diet: Advance as tolerated Discharge Activity: Resume usual activity Patient Instructions: Weakness (ED) Coding Level of Care Code ED Aircraft Powertrain Repairer for Clair Agustin
[2023-10-24 16:04] LABS: Basophils # 0.1 10^3/uL (0.0-0.1); Basophils % 0.7 %; Eosinophils # 0.2 10^3/uL (0.0-0.8); Eosinophils % 3.1 %; Lymphocytes # 1.1 10^3/uL (0.8-4.8); Lymphocytes % 14.6 %; Mean Corpuscular HGB Conc 30.6 g/dL (30-55); Mean Corpuscular Hemoglobin 32.9 pg (27-33); Mean Corpuscular Volume 107.4 fl (85-98); Mean Platelet Volume 10.2 fL (7.4-10.4); Monocytes # 0.3 10^3/uL (0.2-0.9); Neutrophils # 5.82 10^3/uL (1.8-7.7); Neutrophils % 77.2 %; Nucleated Red Blood Cells % 0 %; Platelet Count 297 10^3/cmm (157-399); Red Blood Count 2.98 10^6/uL (3.85-5.65); Red Cell Distribution Width 15.2 % (12.1-15.1); White Blood Count 7.53 10^3/uL (3.29-11.43)
[2023-10-24 16:18] LABS: Alanine Aminotransferase < 5 U/L (0-33); Albumin Level 3.6 g/dL (3.5-5.2); Alkaline Phosphatase 118 U/L (35-105); Aspartate Amino Transferase 15 U/L (0-32); Blood Urea Nitrogen 28 mg/dL (8-23); Calcium 8.3 mg/dL (8.5-10.5); Carbon Dioxide 21 mmol/L (22-29); Chloride 104 mmol/L (98-107); Globulin 3.3 g/dL (1.3-4.6); Glucose 124 mg/dL (65-115); Osmolality Calculated 295 mOsm/kg (285-295); Sodium 139 mmol/L (136-145); Total Bilirubin 0.3 mg/dL (0.15-1.2); Total Protein 6.9 g/dL (6.6-8.7)
[2023-10-24] MEDS: sodium chloride 0.9% 1,000 ML 999 ML IV (17:49)
[2023-10-24 18:58] LABS: Influenza A by IFA negative (Negative); Influenza B by IFA negative (Negative)
[2023-10-24 18:59] LABS: SARS Covid-2 Antigen Negative (Negative)
[2023-10-24 19:03] VITALS: BP 170/62; PULSE 50; RESP 16; O2SAT 99
[2023-10-24 19:17] LABS: Bilirubin Urine Neg (Negative); Blood Urine Neg (Negative); Glucose Urine UA Norm (Normal); Ketones Urine Negative (Negative); Leukocyte Esterase Urine Negative (Negative); Nitrate Urine Negative (Negative); Protein Urine Neg (Negative); RBC Urine 0-4 /hpf (0-2); Urine Appearance Clear (CLEAR); Urine Color Yellow (Yellow); Urobilinogen Urine Norm (Negative); WBC Urine 0-4 /hpf (0-5); pH Urine 5 (5-7)
[2023-10-24 19:18] LABS: Bacteria Urine TRACE /hpf; Hyaline Casts Urine 0-4 /lpf; Mucus Urine 1+ /hpf; Squamous Epithelial Cell Urine 0-4 /hpf (0-5)
--- NOTE | 2023-10-24 19:23 | CTR_ITS ---
PROCEDURE INFORMATION: Exam: CT Head Without Contrast Exam date and time: 10/24/2023 7:32 PM Age: 88 years old Clinical indication: Pain; Headache; Patient HX: C/O CORDERO TECHNIQUE: Imaging protocol: Computed tomography of the head without contrast. Radiation optimization: All CT scans at this facility use at least one of these dose optimization techniques: automated exposure control; mA and/or kV adjustment per patient size (includes targeted exams where dose is matched to clinical indication); or iterative reconstruction. COMPARISON: CT head wo con* [id number] 04/14/2023 7:53 PM RADIATION DOSE METRICS: Total DLP (mGy-cm): 897.28 FINDINGS: Brain: Normal. No hemorrhage. Unremarkable white matter. No mass effect. Cerebral ventricles: No ventriculomegaly. Paranasal sinuses: Visualized sinuses are unremarkable. No fluid levels. Mastoid air cells: Visualized mastoid air cells are well aerated. Bones/joints: Partially visualized bony erosion changes seen at the base of the skull, and sphenoid bone. No acute fracture. Soft tissues: Unremarkable. CT/CT head wo con* [id number] IMPRESSION: 1. No acute intracranial abnormality. 2. Partially visualized bony erosion changes seen at the base of the skull, and sphenoid bone. Likely a sequela of prior inflammatory changes of the sinuses.
[2023-10-24 20:20] VITALS: BP 153/63; BP 175/61; BP 184/80; PULSE 61; PULSE 67; PULSE 73
[2023-10-24 21:48] VITALS: BP 153/63; PULSE 71; O2SAT 98
== END 2023-10-24 21:51 | disposition home or self-care (01) ==
PROVIDERS: Emergency Medicine; Emergency Provider Emergency Medicine; PCP Registered Nurse
DX: R53.1 Weakness (principal); Z79.82 Long term (current) use of aspirin; Z11.52 Encounter for screening for COVID-19; I25.10 Atherosclerotic heart disease of native coronary artery without angina pectoris; E78.5 Hyperlipidemia, unspecified; I10 Essential (primary) hypertension
CPT/HCPCS: 36415; 70450; 71045; 80053; 81001; 85025; 87426; 87804; 96360; 96361; 99285; J7030

== ENCOUNTER → 2023-10-25 09:57 | Outpatient (BNVA) | payer MEDICARE, OTHER, SELFPAY | PROVIDERS: PCP Registered Nurse; Visit Provider Dermatology | DX: Z48.02 Encounter for removal of sutures (principal) | CPT/HCPCS: 99212 ==

== ENCOUNTER → 2023-11-10 13:51 | Outpatient (BNVA) | payer MEDICARE, OTHER, SELFPAY | PROVIDERS: PCP Registered Nurse; Visit Provider Internal Medicine Rheumatology | DX: I48.11 Longstanding persistent atrial fibrillation; Z79.899 Other long term (current) drug therapy; M81.0 Age-related osteoporosis without current pathological fracture; M05.79 Rheumatoid arthritis with rheumatoid factor of multiple sites without organ or systems involvement; Z71.85 Encounter for immunization safety counseling | CPT/HCPCS: 36415; 80076; 82306; 82565; 82607; 82728; 82746; 83540; 83550; 85025; 86140; 99214 ==

== ENCOUNTER 2023-11-18 10:08 | Oncology outpatient (recurring) (ONCR) | payer MEDICARE, OTHER, SELFPAY ==
[2023-11-18] MEDS: denosumab 60 mg SDV SUBCUT (10:50)
[2023-11-18 10:52] VITALS: BP 139/68; PULSE 56; RESP 16; TEMP 36.4; O2SAT 97
== END 2023-12-05 23:59 | disposition home or self-care (01) ==
PROVIDERS: PCP Registered Nurse; Visit Provider Internal Medicine
DX: M81.0 Age-related osteoporosis without current pathological fracture (principal)
CPT/HCPCS: 96372; J0897

== ENCOUNTER 2023-11-24 13:57 | Inpatient (IN) | payer MEDICARE, OTHER, SELFPAY ==
[2023-11-24] VITALS (35 sets, daily range): BP systolic 96–192; BP diastolic 33–115; PULSE 36–71; RESP 13–20; TEMP 35.8–36.4; O2SAT 87–98; BMI 22.3; BMI 23.6
--- NOTE | 2023-11-24 13:59 | XR_ITS ---
WS: [id number] Portable AP semiupright chest, 11/24/2023 Clinical Data: dyspnea/cough Comparison: AP chest, 10/24/2023 Findings: Patchy opacity in both lower lobes has developed and increased compared to the prior study. The upper lobes show mild pulmonary vascular congestion. The heart is at the upper limits of normal. No pneumothorax is present. There are midline sternotomy sutures. The aortic arch and descending tho racic aorta show calcification and tortuosity. Monitor leads are on the chest wall. Impression: 1. Bibasilar opacities which may represent pneumonia and/or atelectasis. 2. Mild pulmonary vascular congestion. 3. Atherosclerosis and cardiomegaly.
--- NOTE | 2023-11-24 13:59 | ECG_ITS ---
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 Measurements Intervals [place] Rate: 40 P: 0 MS: 0 QRS: -42 QRSD: 166 T: 116 QT: 594 QTc: 488 Interpretive Statements ATRIAL FIBRILLATION WITH SLOW VENTRICULAR RESPONSE LEFT AXIS DEVIATION [QRS AXIS < -30] INTRAVENTRICULAR CONDUCTION DELAY [130+ ms QRS DURATION] LATERAL MYOCARDIAL INFARCTION , OF INDETERMINATE AGE [40+ ms Q WAVE AND/OR ST/T ABNORMALITY IN I/aVL/V5/V6] PROLONGED QT INTERVAL Compared to ECG 04/15/2023 02:17:09 Left-axis deviation now present Intraventricular conduction delay now present Myocardial infarct finding now present Prolonged QT interval now present Sinus rhythm no longer present T-wave abnormality no longer present Electronically Signed On 11-24-2023 16:49:02 CDT by Rodney Mendez M.D. [email or web address]/store/[id number]
--- NOTE | 2023-11-24 14:18 | ED_ITS ---
HPI - Weakness 2 General: Chief complaint: Weakness Stated complaint: Gen Weakness Time Seen by Provider: 11/24/23 13:58 History of Present Illness: 80-year-old female presents emergency ro om planing of generalized weakness that began yesterday progressively worsening. She has some mild vague chest discomfort and some shortness of breath with any activity she has a history of atrial fibrillation is on amiodarone. No recent medication changes. Associated symptoms: Denies chest pain, chills, dysuria or fever(s) Review of Systems 2 Const: Denies: fever(s) or chills Card: Denies: chest pain Resp: Denies: dyspnea GI: Denies: abdominal pain : Denies: dysuria, urinary frequency or urinary urgency Musc: Denies: neck pain or back pain Skin/Breast: Denies: rash PFSH ED 2 PFSH: Medical History Seropositive rheumatoid arthritis of multiple sites Immunization counseling High risk medication use Anal sphincter incompetence History of nonmelanoma skin cancer History of melanoma Scoliosis CAD (coronary artery disease) Rheumatoid arthritis Reported hx by pt Scoliosis (and kyphoscoliosis), idiopathic Anxiety and depression Afib Menopause Hypothyroidism Angina pectoris GERD (gastroesophageal reflux disease) Recurrent urinary tract infection Hyperlipidemia Hypertension Surgical History History of hand surgery History of open heart surgery 2000 History of hysterectomy History of intestinal surgery History of tonsillectomy Hx of foot surgery right foot Family History Mother Diabetes Other Parkinson disease Social History Smoking and tobacco/nicotine status: never used tobacco/nicotine Alcohol intake: never Substance/Drug Use: never Adopted: No Caregiver/support person: No Lives independently: No Household members: family service: No Sexually active: No Do you think of yourself as: Straight/Heterosexual Current gender identity: Female Physical Exam 2 Const: GENERAL APPEARANCE: cooperative and comfortable O RIENTATION/CONSCIOUSNESS: Yes awake, Yes oriented to person, Yes oriented to place and Yes oriented to time HENMT: COMMON NORMALS: normocephalic, atraumatic and hearing grossly normal bilaterally HEAD & SCALP: normocephalic and atraumatic Resp: COMMON NORMALS: normal respiratory effort, No retractions and No use of accessory muscles AUSCULTATION: crackles Cardio: RATE: bradycardic HEART SOUNDS: Murmur heart sound present systolic GI: COMMON NORMALS: Soft to palpation and No hepatosplenomegaly present A USCULTATION: Yes normoactive bowel sounds PALPATION: Yes Soft to palpation, No Tenderness to palpation present (GI), No Guarding due to palpation present (GI) and Yes No hepatosplenomegaly present Extremity: COMMON NORMALS: normal to inspection, capillary refill normal, no clubbing, cyanosis or edema, no calf tenderness and no pedal edema Neuro: SENSORIUM/ORIENTATION: Yes oriented to person, Yes oriented to place and Yes oriented to time Skin: COMMON NORMALS: no rashes or lesions noted GENERAL SKIN EXAM: no rashes or lesions noted Course 2 Vital Signs: Vital signs: Vital Signs Temperature 97.5 F L 11/24/23 14:06 Pulse Rate 46 L 11/24/23 17:09 Respiratory Rate 17 11/24/23 17:00 Blood Pressure 109/42 11/24/23 17:00 Pulse Oximetry 94 11/24/23 17:00 Oxygen Delivery Me thod Room Air 11/24/23 17:00 MDM - Weakness Medical Decision Making Heart block likely secondary to medication and electrolyte disturbance. Patient has hyperkalemia hyponatremia and a mild cystitis. Patient placed on the pacer pads. Will admit to the ICU consult cardiology. Hyperkalemia treatments were initiated in the emergency room blood pressure remained stable. She is awake and alert. She had a couple of episodes of sharp twinges of chest pain that resolved very briefly. Her initial troponin was 23 her second troponin is pending. I discussed Dr. Chatterjee who will be her inpatient doctor as well as with Dr. Galvez who will consult. Medical Records I reviewed the patient's medical records. Lab Data I reviewed the patient's lab results. 11/24/23 14:56 11/24/23 15:28 Laboratory Results WBC 7.96 10^3/uL (3.29-11.43) 11/24/23 14:56 RBC 2.87 10^6/uL (3.85-5.65) L 11/24/23 14:56 Hgb 9.20 g/dL (11.27-16.99) L 11/24/23 14:56 Hct 31.0 % (36-47) L 11/24/23 14:56 MCV 108.0 fl (85-98) H 11/24/23 14:56 MCH 32.1 pg (27-33) 11/24/23 14:56 MCHC 29.7 g/dL (30-55) L 11/24/23 14:56 RDW 16.1 % (12.1-15.1) H 11/24/23 14:56 Plt Count 254 10^3/cmm (157-399) 11/24/23 14:56 MPV 10.3 fL (7.4-10.4) 11/24/23 14:56 Neut % (Auto) 80.4 % 11/24/23 14:56 Lymph % (Auto) 9.0 % 11/24/23 14:56 [place] % (Auto) 8.0 % 11/24/23 14:56 Eos % (Auto) 1.5 % 11/24/23 14:56 Baso % (Auto) 0.6 % 11/24/23 14:56 Neut # (Auto) 6.39 10^3/uL (1.8-7.7) 11/24/23 14:56 Lymph # (Auto) 0.7 10^3/uL (0.8-4.8) L 11/24/23 14:56 [place] # (Auto) 0.6 10^3/uL (0.2-0.9) 11/24/23 14:56 Eos # (Auto) 0.1 10^3/uL (0.0-0.8) 11/24/23 14:56 Baso # (Auto) 0.1 10^3/uL (0.0-0.1) 11/24/23 14:56 Nucleated RBC % (auto) 0 % 11/24/23 14:56 Nucleated RBCs # 0.0 /100WBC 11/24/23 14:56 GFR Calculation Not Reportable 11/24/23 14:56 Lactic Acid 1.4 mmol/L (0.5-2.2) 11/24/23 14:56 All radiology interpretation(s) finalized by discharge Discharge Plan Discharge Patient Disposition: Admitted As Inpatient Admit Provider: Madison,Dav Clinical Impression: Bradycardia, Acute kidney injury, Hyperkalemia, Hyponatremia, Prolonged Q-T interval on ECG, Medication side effects, Cystitis Condition: Stable Coding Level of Care Code ED Regional Account Manager for Clair Agustin
--- NOTE | 2023-11-24 14:35 | PC.PHAR ---
PT IS FROM [facility] 11/24/23
[2023-11-24 15:05] LABS: Basophils # 0.1 10^3/uL (0.0-0.1); Basophils % 0.6 %; Eosinophils # 0.1 10^3/uL (0.0-0.8); Eosinophils % 1.5 %; Lymphocytes # 0.7 10^3/uL (0.8-4.8); Mean Corpuscular HGB Conc 29.7 g/dL (30-55); Mean Corpuscular Hemoglobin 32.1 pg (27-33); Mean Platelet Volume 10.3 fL (7.4-10.4); Monocytes # 0.6 10^3/uL (0.2-0.9); Neutrophils # 6.39 10^3/uL (1.8-7.7); Neutrophils % 80.4 %; Nucleated Red Blood Cells % 0 %; Platelet Count 254 10^3/cmm (157-399); Red Blood Count 2.87 10^6/uL (3.85-5.65); Red Cell Distribution Width 16.1 % (12.1-15.1); White Blood Count 7.96 10^3/uL (3.29-11.43)
--- NOTE | 2023-11-24 15:18 | ECG_ITS ---
[facility] Test Date: 2023-11-24 Pat Name: Shanna Lang Department: Room: ICU07 Gender: Female Rear Admiral: : 1935 Requested By: Hugo Sanchez Order Number: [id number] Dean MD: Rodney Mendez M.D. Measurements Intervals [place] Rate: 41 P: 253 DC: 260 QRS: -48 QRSD: 149 T: 118 QT: 603 QTc: 498 Interpretive Statements ATRIAL FIBRILLATION WITH SLOW VENTRICULAR RATE INTRAVENTRICULAR CONDUCTION DELAY [130+ ms QRS DURATION] LATERAL MYOCARDIAL INFARCTION , OF INDETERMINATE AGE [40+ ms Q WAVE AND/OR ST/T ABNORMALITY IN I/aVL/V5/V6] INFERIOR MYOCARDIAL INFARCTION , PROBABLY OLD [40+ ms Q WAVE AND/OR ST/T ABNORMALITY IN II/aVF] PROLONGED QT INTERVAL Compared to ECG 11/24/2023 14:12:20 First degree AV block now present Left-axis deviation no longer present Myocardial infarct finding still present Electronically Signed On 11-24-2023 16:47:47 CDT by Rodney Mendez M.D. [id number]
[2023-11-24 15:20] LABS: Lactic Sepsis W/Reflex 1.4 mmol/L (0.5-2.2)
[2023-11-24] MEDS: sodium chloride 0.9% 500 ML 999 ML IV (15:47)
[2023-11-24 15:48] LABS: Albumin Level 3.7 g/dL (3.5-5.2); Globulin 2.9 g/dL (1.3-4.6); Glucose 94 mg/dL (65-115); Lipase 20 U/L (13-60); Thyroid Stimulating Hormone 1.01 uIU/mL (0.27-4.20); Total Bilirubin 0.5 mg/dL (0.15-1.2); Total Protein 6.6 g/dL (6.6-8.7)
[2023-11-24] MEDS: FUROsemide 10 mg/mL SDV 4mL 40 MG IVP (15:49)
[2023-11-24 15:57] LABS: Troponin(5th) Baseline 23 ng/L (0-10)
[2023-11-24 16:18] LABS: Alanine Aminotransferase 16 U/L (0-33); Aspartate Amino Transferase 20 U/L (0-32); Chloride 98 mmol/L (98-107); Potassium 6.2 mmol/L (3.5-5.1); Sodium 127 mmol/L (136-145)
[2023-11-24 16:25] LABS: Alkaline Phosphatase 143 U/L (35-105); Anion Gap 19.2 (5-19); Blood Urea Nitrogen 25 mg/dL (8-23); Calcium 6.7 mg/dL (8.5-10.5); Carbon Dioxide 16 mmol/L (22-29); Osmolality Calculated 268 mOsm/kg (285-295)
[2023-11-24 16:28] LABS: Creatinine Clr Calc Pharmacy 19.2375
[2023-11-24] MEDS: calcium gluconate 0.9% NaCL 1 GM/50 ML PREMIX IV ×2 (16:54→18:12)
[2023-11-24] MEDS: sodium polystyrene sulfonate 15 gm/60 mL Btl 30 GM PO (16:54)
--- NOTE | 2023-11-24 16:54 | P.CONIM_ITS ---
Providers/Reason For Consult 2 Consulting Physician/Specialty*: DAYA Galvez MD/cardiology Reason for Consult*: Patient atrial fibrillation, presenting with symptomatic bradycardia Requesting Physician: Dr. Wallace Attending Physician: Dav Wallace MD Primary Care Provider: PARISH Medel History of Present Illness History of Present Illness Shanna Lang is a 88 year old female, is admitted to hospital ICU through the emergency room where she presented with complaints of dizziness, weakness and tingling of the lower extremities. She was found to be bradycardic with a heart rate in the 30s. She has a history of chronic atrial fibrillation. Cardiology consult is requested for further cardiac evaluation recommendations. According the patient, she has been doing okay at the assisted care facility where she lives alone. She has not had any chest pain or palpitation. No unusual shortness of breath, orthopnea PND. No nausea or vomiting. No diarrhea. She has been compliant with medications. No recent medication changes. Denies any fever, chills or cough. She was having some dizziness, weakness and tingling of the lower extremities yesterday as well She has a history of atherosclerotic heart diseas and had a single-vessel coronary bypass surgery in 2000. She had a CEVALLOS to the LAD at that time. In 2015, she presented with acute inferior wall myocardial infarction complicated with hypotension. 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 She underwent a thrombectomy and stent placement of this artery. In the [employer], she went into V-fib arrest. She was successfully resuscitated. In 2020, she had an angiogram revealing high-grade lesion in the obtuse marginal artery. She underwent angioplasty and stent placement of this lesion. She apparently developed wire perforation of the distal artery for which she was treated with prolonged balloon inflation. She did not have any significant hemopericardium at that time. Her LV ejection fraction by echocardiogram in April 2023 was 50%. She had a Myocardial perfusion imaging in April 2023 and was essentially unremarkable. She also had an event monitor in April of last year. She was found to have the lowest heart rate of 59. She had rare episodes of second-degree type I AV block. No significant tachy or sonali arrhythmias. She had a CTA in 2018 which revealed less than 50% gnosis of the left subclavian artery with a questionable dissection. Apparently she did not have any significant symptoms in the left upper extremity. Review of Systems 2 Narrative: CONSTITUTIONAL: No fever or chills. Has been having some lethargy and weakness for the last couple of days EYES: No blurring of vision or other visual disturbances lately. ENT: No hoarseness of voice, auditory disturbances or sore throat. CARDIOVASCULAR: As mentioned above. RESPIRATORY: No significant cough. GASTROINTESTINAL: No hematemesis or melena. GENITOURINARY: No dysuria or hematuria. INTEGUMENTARY: No skin rashes or history of skin cancer. NEURO: No transient ischemic attacks or amaurosis. PSYCHIATRIC: No history of psychosis or major depression. HEMATOLOGIC: No bleeding disorders or significant anemia. ENDOCRINE: No history of polyuria or polydipsia. MUSCULOSKELETAL: No recent joint pain or swelling. ALLERGY/IMMUNOLOGY: As mentioned above. Medications/Allergies Home Medications Medication Instructions Recorded Confirmed Last Taken Type Back brace #1 ea 11/20/21 11/24/23 02/26/22 Rx doughnut cushion #1 ea 04/07/22 11/24/23 Unknown Rx accommodative orthotic #1 ea 04/15/22 11/24/23 Unknown Rx loperamide 2 mg-simethicone 125 mg 1 tab PO PRN PRN Diarrhea 04/10/23 11/24/23 Unknown History tablet (Imodium Multi-Symptom Relief) aspirin 81 mg tablet,delayed 81 mg PO DAILY 05/25/23 11/24/23 10/24/23 History release amiodarone 200 mg tablet 200 mg PO DAILY #90 tabs 05/26/23 11/24/23 10/24/23 Rx dabigatran etexilate 150 mg 150 mg PO BID #180 caps 05/26/23 11/24/23 10/24/23 Rx capsule (Pradaxa) calcium carbonate 200 mg calcium 200 mg PO BID PRN dyspepsia 30 08/19/23 11/24/23 Unknown Rx (500 mg) chewable tablet (Tums) days #60 tabs tramadol 50 mg tablet 50 mg PO BID PRN pain 30 days #45 08/19/23 11/24/23 10/19/23 Rx tabs nitroglycerin 400 mcg/spray 1 spray translingual Q5M PRN chest 09/10/23 11/24/23 Unknown Rx translingual pain #4.9 grams cetirizine 10 mg capsule (Zyrtec) 10 mg PO DAILY PRN allergy 10/07/23 11/24/23 10/11/23 Rx symptoms 30 days #30 caps furosemide 20 mg tablet 20 mg PO DAILY 90 days #90 tabs 10/12/23 11/24/23 10/24/23 Rx potassium chloride 20 mEq oral 20 meq PO DAILY 100 days #100 ea 10/12/23 11/24/23 10/24/23 Rx packet (Klor-Con) Lactobacillus rhamnosus-Bifidobac. 1 cap PO QAM 10/24/23 11/24/23 10/24/23 History animalis 3 billion cell capsule (PlayhouseSquare) ascorbic acid (vitamin C) 500 mg 2,000 mg PO DAILY 10/24/23 11/24/23 10/24/23 History tablet (Vitamin C) atorvastatin 40 mg tablet 40 mg PO DAILY 10/24/23 11/24/23 10/23/23 History omeprazole 40 mg capsule,delayed 40 mg PO BEDTIME 10/24/23 11/24/23 10/24/23 History release zinc gluconate 50 mg tablet 50 mg PO DAILY 10/24/23 11/24/23 10/24/23 History ferrous sulfate 325 mg (65 mg 325 mg PO DAILY 30 days #30 tabs 10/29/23 11/24/23 Unknown Rx iron) tablet (Feosol) leflunomide 20 mg tablet 20 mg PO DAILY #90 tabs 11/10/23 11/24/23 Unknown Rx acetaminophen 500 mg tablet 500 mg PO BID fever 30 days #60 11/17/23 11/24/23 Unknown Rx (Tylenol Extra Strength) tabs ondansetron 4 mg disintegrating 4 mg PO .COMPLEX #30 tabs 11/19/23 11/24/23 Unknown Rx tablet acetaminophen 650 mg 650 mg PO Q4H PRN Pain 11/24/23 11/24/23 Unknown History tablet,extended release folic acid 1 mg tablet 1 mg PO TID 11/24/23 11/24/23 Unknown History gabapentin 100 mg capsule 200 mg PO .AFTERNOON 11/24/23 11/24/23 Unknown History gabapentin 300 mg capsule 300 mg PO BID 11/24/23 11/24/23 Unknown History levothyroxine 100 mcg capsule 100 mcg PO DAILY 11/24/23 11/24/23 Unknown History (Tirosint) ofloxacin 0.3 % eye drops 1 drp ophthalmic (eye) QID 11/24/23 11/24/23 Unknown History Allergies Allergy/AdvReac Type Severity Reaction Status Date / Time lactose Allergy Unknown Verified 11/24/23 14:12 Sulfa (Sulfonamide Allergy ADR-Vomitin Verified 11/24/23 14:12 Antibiotics) g PFSH Acute 2 PFSH: Medical History Seropositive rheumatoid arthritis of multiple sites Immunization counseling High risk medication use Anal sphincter incompetence History of nonmelanoma skin cancer History of melanoma Scoliosis CAD (coronary artery disease) Rheumatoid arthritis Reported hx by pt Scoliosis (and kyphoscoliosis), idiopathic Anxiety and depression Afib Menopause Hypothyroidism Angina pectoris GERD (gastroesophageal reflux disease) Recurrent urinary tract infection Hyperlipidemia Hypertension Surgical History History of hand surgery History of open heart surgery 2000 History of hysterectomy History of intestinal surgery History of tonsillectomy Hx of foot surgery right foot Family History Mother Diabetes Other Parkinson disease Social History Smoking and tobacco/nicotine status: never used tobacco/nicotine Alcohol intake: never Substance/Drug Use: never Adopted: No Caregiver/support person: No Lives independently: No Household members: family service: No Sexually active: No Do you think of yourself as: Straight/Heterosexual Current gender identity: Female Vitals/I&O/Wt Last Vital Signs Temp 97.5 F L 11/24/23 14:06 Pulse 38 L 11/24/23 16:00 Resp 17 11/24/23 15:42 BP 96/48 11/24/23 16:00 Pulse Ox 96 11/24/23 16:00 O2 Del Method Room Air 11/24/23 16:00 Weight last 48 hrs Weight 130 lb Physical Exam 2 Narrative: GENERAL: The patient is alert and oriented times three. Not in any acute distress. HEENT: No significant pallor, icterus or lymphadenopathy.Oral cavity: There are no mucous membrane lesions. NECK: Trachea appears to be central. No masses noted. No JVD or thyromegaly appreciated. RESPIRATORY: Chest is symmetrical. No intercostals muscle retraction or any accessory muscle activation. There is no chest wall tenderness. Breath sounds are heard bilaterally. No rales or rhonchi heard. No evidence of any consolidation. BREASTS: Deferred. HEART: The heart sounds are normal. No S3 or S4. Short systolic murmur in the lower sternal border. No diastolic murmurs.. No pericardial rub ABDOMEN: No vessel pulsations or distention. No tenderness. No organomegaly appreciated. Bowel sounds are normally heard. : Deferred. RECTAL: Deferred. LYMPHATIC: No lymphadenopathy noted in the neck. EXTREMITIES: No edema or cyanosis. No clubbing. MUSCULOSKELETAL: No acute joint deformities or swelling SKIN: There are no significant rashes or ecchymosis NEUROPSYCHIATRIC: The patient is alert and oriented x3. Somewhat lethargic. Urinary Catheter Management: Alanis: Cath Placed During This Visit: yes Urinary Catheter Date of Insertion: 11/24/23 Urinary Catheter Time of Insertion: 15:43 Data 11/24/23 14:56 11/24/23 15:28 Other Labs: Laboratory Last Values WBC 7.96 10^3/uL (3.29-11.43) 11/24/23 14:56 RBC 2.87 10^6/uL (3.85-5.65) L 11/24/23 14:56 Hgb 9.20 g/dL (11.27-16.99) L 11/24/23 14:56 Hct 31.0 % (36-47) L 11/24/23 14:56 MCV 108.0 fl (85-98) H 11/24/23 14:56 MCH 32.1 pg (27-33) 11/24/23 14:56 MCHC 29.7 g/dL (30-55) L 11/24/23 14:56 RDW 16.1 % (12.1-15.1) H 11/24/23 14:56 Plt Count 254 10^3/cmm (157-399) 11/24/23 14:56 MPV 10.3 fL (7.4-10.4) 11/24/23 14:56 Neut % (Auto) 80.4 % 11/24/23 14:56 Lymph % (Auto) 9.0 % 11/24/23 14:56 [place] % (Auto) 8.0 % 11/24/23 14:56 Eos % (Auto) 1.5 % 11/24/23 14:56 Baso % (Auto) 0.6 % 11/24/23 14:56 Neut # (Auto) 6.39 10^3/uL (1.8-7.7) 11/24/23 14:56 Lymph # (Auto) 0.7 10^3/uL (0.8-4.8) L 11/24/23 14:56 [place] # (Auto) 0.6 10^3/uL (0.2-0.9) 11/24/23 14:56 Eos # (Auto) 0.1 10^3/uL (0.0-0.8) 11/24/23 14:56 Baso # (Auto) 0.1 10^3/uL (0.0-0.1) 11/24/23 14:56 Nucleated RBC % (auto) 0 % 11/24/23 14:56 Nucleated RBCs # 0.0 /100WBC 11/24/23 14:56 Sodium 127 mmol/L (136-145) L 11/24/23 15:28 Potassium 6.2 mmol/L (3.5-5.1) H 11/24/23 15:28 Chloride 98 mmol/L (98-107) 11/24/23 15:28 Carbon Dioxide 16 mmol/L (22-29) L 11/24/23 15:28 Anion Gap 19.2 (5-19) H 11/24/23 15:28 BUN 25 mg/dL (8-23) H 11/24/23 15:28 Creatinine 1.8 mg/dL (0.5-0.9) H 11/24/23 15:28 GFR Calculation Not Reportable 11/24/23 14:56 Glucose 94 mg/dL (65-115) 11/24/23 15:28 Calculated Osmolality 268 mOsm/kg (285-295) L 11/24/23 15:28 Lactic Acid 1.4 mmol/L (0.5-2.2) 11/24/23 14:56 Calcium 6.7 mg/dL (8.5-10.5) L 11/24/23 15:28 Total Bilirubin 0.5 mg/dL (0.15-1.2) 11/24/23 15: AST 20 U/L (0-32) 11/24/23 15: ALT 16 U/L (0-33) 11/24/23 15: Alkaline Phosphatase 143 U/L (35-105) H 11/24/23 15: Troponin T Baseline 23 ng/L (0-10) H 11/24/23 15: Total Protein 6.6 g/dL (6.6-8.7) 11/24/23 15: Albumin 3.7 g/dL (3.5-5.2) 11/24/23: Globulin 2.9 g/dL (1.3-4.6) 11/24/23: Lipase 20 U/L (13-60) 11/24/23: TSH 1.01 uIU/mL (0.27-4.20) 11/24/23 15: Other data: EKG showed Atrial fibrillation with slow ventricular response rate of 41 bpm. Nonspecific IVCD. Left axis deviation. QTc of 497 milliseconds Event monitor on 04/19/2023 1. Baseline rhythm is sinus rhythm. Heart rate ranged from 59 to 114 bpm with average heart rate of 72 bpm 2. Episode of asymptomatic atrial flutter with variable block on 25 April at 3:11 AM and lasted for 30 seconds with heart rate ranging from 71 to 82 bpm with average heart rate of 78 bpm. Another episode of second-degree AV block type I on 30 April at 12:01 AM with heart rate at 60 bpm. 3. No patient symptoms mentioned. Echocardiogram on 04/10/2023 Normal left ventricular size with a borderline low ejection fraction of 50%. Mild diffuse hypokinesia of the left ventricle. Mild biatrial enlargement. Moderate mitral annular calcification. Mild mitral valve regurgitation. Thickened aortic valve. Moderate tricuspid valve regurgitation. Moderate pulmonary hypertension with an estimated pulmonary artery peak systolic pressure 56 mmHg. Thickened aortic valve. Trace pulmonary valve regurgitation. There is no pericardial effusion. There are no intracardiac masses. No similar previous studies are available for comparison Myocardial perfusion imaging on 04/12/2023 1. Myocardial perfusion imaging is normal. 2. Overall left ventricular systolic function is normal without regional wall motion abnormalities, LVEF=86%. 3. EKG portion of the study will be reported separately. 4. Scan indicates low risk for cardiac events. A&P Assessment and plan (1) Bradycardia: Possibly related to the amiodarone. At this point, I may hold off on the amiodarone. She need to be closely monitored on telemetry. The TSH is in the normal range. (2) Atrial fibrillation with rapid ventricular response: Patient is on long-term oral anticoagulation. This may be continued. (3) Atherosclerosis of coronary artery of [place] heart without angina pectoris: Her Myocardial perfusion imaging in April of last year was unremarkable. I will hold off on any intervention at this point. Patient has some tight feeling in the chest, could be related to the bradycardia. Qualifiers: Coronary Disease-Associated Artery/Lesion type: [place] artery Qualified Code(s): I25.10 - Atherosclerotic heart disease of [place] coronary artery without angina pectoris (4) Hyperlipidemia: May continue on the current management. Qualifiers: Hyperlipidemia type: mixed hyperlipidemia Qualified Code(s): E78.2 - Mixed hyperlipidemia (5) Peripheral arterial disease: Currently asymptomatic and stable. Continue on the current management. Plan Send the patient's blood pressure seems to be in the normal range, she may not require a temporary pacemaker at this point. If the heart rate improves, we may continue to hold off the amiodarone for a while. Sometimes down the line, the patient may require a permanent pacer implantation. Consult Attestations 2 Medical Necessity Statement: Patient requires continued hospital stay for close monitoring and further management Coding Level of Care Code 31158 Diagnoses Bradycardia R00.1 Atrial fibrillation with rapid ventricular response I48.91 Atherosclerosis of [place] coronary artery of [place] heart without angina pectoris I25.10 Coronary Disease-Associated Artery/Lesion type: [place] artery Mixed hyperlipidemia E78.2 Hyperlipidemia type: mixed hyperlipidemia Peripheral arterial disease I73.9
[2023-11-24] MEDS: insulin regular-human 100 units/1 mL 10 UNIT IVP (16:58)
[2023-11-24] MEDS: albuterol 2.5 mg/3 mL Neb 10 MG INHALATION (16:59)
--- NOTE | 2023-11-24 17:04 | P.HP_ITS ---
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 from assisted living facility as she has been feeling unwell, lightheaded, dizzy, she has had several falls over the last few days. She also reports anterior chest discomfort, pain in into her neck, no nausea, no vomiting, no shortness of breath, she is using her medications as prescribed, denies any fevers, no chills, no significant trauma from the falls, no syncope, no blacking out, no head trauma, she tells me that she feels weak all over, during her hospitalization in April, she required cardioversion, she tells me, for her atrial fibrillation, Review of Systems 2 Const: Reports: fatigue and malaise; Denies: fever(s) or chills Card: Reports: chest pain Resp: Denies: dyspnea GI: Denies: abdominal pain Musc: Reports: neck pain Medications/Allergies Home Medications Medication Instructions Recorded Confirmed Last Taken Type Back brace #1 ea 11/20/21 11/24/23 02/26/22 Rx doughnut cushion #1 ea 04/07/22 11/24/23 Unknown Rx accommodative orthotic #1 ea 04/15/22 11/24/23 Unknown Rx loperamide 2 mg-simethicone 125 mg 1 tab PO PRN PRN Diarrhea 04/10/23 11/24/23 Unknown History tablet (Imodium Multi-Symptom Relief) aspirin 81 mg tablet,delayed 81 mg PO DAILY 05/25/23 11/24/23 10/24/23 History release amiodarone 200 mg tablet 200 mg PO DAILY #90 tabs 05/26/23 11/24/23 10/24/23 Rx dabigatran etexilate 150 mg 150 mg PO BID #180 caps 05/26/23 11/24/23 10/24/23 Rx capsule (Pradaxa) calcium carbonate 200 mg calcium 200 mg PO BID PRN dyspepsia 30 08/19/23 11/24/23 Unknown Rx (500 mg) chewable tablet (Tums) days #60 tabs tramadol 50 mg tablet 50 mg PO BID PRN pain 30 days #45 08/19/23 11/24/23 10/19/23 Rx tabs nitroglycerin 400 mcg/spray 1 spray translingual Q5M PRN chest 09/10/23 11/24/23 Unknown Rx translingual pain #4.9 grams cetirizine 10 mg capsule (Zyrtec) 10 mg PO DAILY PRN allergy 10/07/23 11/24/23 10/11/23 Rx symptoms 30 days #30 caps furosemide 20 mg tablet 20 mg PO DAILY 90 days #90 tabs 10/12/23 11/24/23 10/24/23 Rx potassium chloride 20 mEq oral 20 meq PO DAILY 100 days #100 ea 10/12/23 11/24/23 10/24/23 Rx packet (Klor-Con) Lactobacillus rhamnosus-Bifidobac. 1 cap PO QAM 10/24/23 11/24/23 10/24/23 History animalis 3 billion cell capsule ([employer]) ascorbic acid (vitamin C) 500 mg 2,000 mg PO DAILY 10/24/23 11/24/23 10/24/23 History tablet (Vitamin C) atorvastatin 40 mg tablet 40 mg PO DAILY 10/24/23 11/24/23 10/23/23 History omeprazole 40 mg capsule,delayed 40 mg PO BEDTIME 10/24/23 11/24/23 10/24/23 History release zinc gluconate 50 mg tablet 50 mg PO DAILY 10/24/23 11/24/23 10/24/23 History ferrous sulfate 325 mg (65 mg 325 mg PO DAILY 30 days #30 tabs 10/29/23 11/24/23 Unknown Rx iron) tablet (Feosol) leflunomide 20 mg tablet 20 mg PO DAILY #90 tabs 11/10/23 11/24/23 Unknown Rx acetaminophen 500 mg tablet 500 mg PO BID fever 30 days #60 11/17/23 11/24/23 Unknown Rx (Tylenol Extra Strength) tabs ondansetron 4 mg disintegrating 4 mg PO .COMPLEX #30 tabs 11/19/23 11/24/23 Unknown Rx tablet acetaminophen 650 mg 650 mg PO Q4H PRN Pain 11/24/23 11/24/23 Unknown History tablet,extended release folic acid 1 mg tablet 1 mg PO TID 11/24/23 11/24/23 Unknown History gabapentin 100 mg capsule 200 mg PO .AFTERNOON 11/24/23 11/24/23 Unknown History gabapentin 300 mg capsule 300 mg PO BID 11/24/23 11/24/23 Unknown History levothyroxine 100 mcg capsule 100 mcg PO DAILY 11/24/23 11/24/23 Unknown History (Tirosint) ofloxacin 0.3 % eye drops 1 drp ophthalmic (eye) QID 11/24/23 11/24/23 Unknown History Allergies Allergy/AdvReac Type Severity Reaction Status Date / Time lactose Allergy Unknown Verified 11/24/23 14:12 Sulfa (Sulfonamide Allergy ADR-Vomitin Verified 11/24/23 14:12 Antibiotics) g PFSH Acute 2 PFSH: Medical History Seropositive rheumatoid arthritis of multiple sites Immunization counseling High risk medication use Anal sphincter incompetence History of nonmelanoma skin cancer History of melanoma Scoliosis CAD (coronary artery disease) Rheumatoid arthritis Reported hx by pt Scoliosis (and kyphoscoliosis), idiopathic Anxiety and depression Afib Menopause Hypothyroidism Angina pectoris GERD (gastroesophageal reflux disease) Recurrent urinary tract infection Hyperlipidemia Hypertension Surgical History History of hand surgery History of open heart surgery 2000 History of hysterectomy History of intestinal surgery History of tonsillectomy Hx of foot surgery right foot Family History Mother Diabetes Other Parkinson disease Social History Smoking and tobacco/nicotine status: never used tobacco/nicotine Alcohol intake: never Substance/Drug Use: never Adopted: No Caregiver/support person: No Lives independently: No Household members: family service: No Sexually active: No Do you think of yourself as: Straight/Heterosexual Current gender identity: Female Vitals/I&O/Wt Last Vital Signs Temp 97.5 F L 11/24/23 14:06 Pulse 41 L 11/24/23 17:00 Resp 16 11/24/23 17:00 BP 96/48 11/24/23 16:00 Pulse Ox 96 11/24/23 17:00 O2 Del Method Room Air 11/24/23 17:00 Weight last 48 hrs Weight 58.967 kg Physical Exam 2 Const: COMMON NORMALS: no acute distress and patient oriented x3 HENMT: COMMON NORMALS: normocephalic HEAD & SCALP: normocephalic Eye: COMMON NORMALS: Equal, round and reactive pupils present and EOMs intact bilaterally Neck/C-Spine: COMMON NORMALS: full ROM and no lymphadenopathy Lymph: LYMPHATIC: no lymphadenopathy noted Resp: COMMON NORMALS: normal respiratory effort, No retractions, No use of accessory muscles and clear to auscultation bilaterally AUSCULTATION: clear to auscultation bilaterally Cardio: COMMON NORMALS: S1 normal heart sound present and S2 normal heart sound present RATE: bradycardic RHYTHM: regular rhythm and abnormal rhythm HEART SOUNDS: S1 normal heart sound present and S2 normal heart sound present GI: COMMON NORMALS: Normal to inspection, nondistended, normoactive bowel sounds present, Soft to palpation and non-tender Extremity: COMMON NORMALS: no pedal edema Neuro: COMMON NORMALS: patient oriented x3, CN's II-XII intact bilaterally and moves all extremities Psych: COMMON NORMALS: mental status grossly normal Urinary Catheter Management: Alanis: Cath Placed During This Visit: yes Urinary Catheter Date of Insertion: 11/24/23 Urinary Catheter Time of Insertion: 15:43 Data 11/24/23 14:56 11/24/23 15:28 A&P Assessment and plan (1) Bradycardia, severe sinus: (2) Hypertension: Qualifiers: Hypertension type: primary hypertension Qualified Code(s): I10 - Essential (primary) hypertension (3) CAD (coronary artery disease): (4) Afib: Qualifiers: Atrial fibrillation type: longstanding persistent Qualified Code(s): I 48.11 - Longstanding persistent atrial fibrillation (5) Tachy-sonali syndrome: (6) PVD (peripheral vascular disease): (7) Hyperlipidemia: (8) Hypothyroidism: (9) Acute kidney injury: (10) Hyperkalemia: (11) Hyponatremia: (12) Goals of care, counseling/discussion: Plan Bradycardia -Possibly secondary to amiodarone, ? Possibly secondary to sick sinus syndrome, tachybradycardia syndrome ? Had extensive discussion with patient about pacemaker placement, she is agreeable to pacemaker placement if it is absolutely required ? Plan, ? Her mean arterial pressures are soft around 60-65, start her on dopamine, ? Will watch her in the ICU closely, ? Externally paced if required, ? Cardiology consulted, ? Hold Pradaxa if there is any plans on placing pacemaker, ? Monitor blood pressures and heart rates closely Hyperkalemia, ? Has received insulin, D10, Kayexalate bicarb in the emergency room Acute kidney injury, ? Creatinine 1.8 ? Renal ultrasound, ? Consult nephrology -ivf Metabolic acidosis ? Lactic acid within normal limits, -Next it could be from bradycardia, hypotension ? ER a started sodium bicarb Hyponatremia, IV fluids Goals of care discussion, patient tells me that she wants to remain a full code, until her grandson from [place] can come and see her, agreeable for pacemaker placement if required SCDs for DVT prophylaxis Attestations 2 Medical Necessity Statement*: Patient requires hospitalization for bradycardia, ANGELES, hyperkalemia, inpatient, greater than 2 midnights Diagnoses Bradycardia, severe sinus R00.1 Primary hypertension I10 Hypertension type: primary hypertension CAD (coronary artery disease) I25.10 Longstanding persistent atrial fibrillation I48.11 Atrial fibrillation type: longstanding persistent Tachy-sonali syndrome I49.5 PVD (peripheral vascular disease) I73.9 Hyperlipidemia E78.5 Hypothyroidism E03.9 Acute kidney injury N17.9 Hyperkalemia E87.5 Hyponatremia E87.1 Goals of care, counseling/discussion Z71.89
[2023-11-24 17:05] LABS: Add Urine Microscopic? YES; Bilirubin Urine 1+ (Negative); Blood Urine Neg (Negative); Glucose Urine UA Norm (Normal); Ketones Urine 1+ (Negative); Leukocyte Esterase Urine Trace (Negative); Nitrate Urine Negative (Negative); Protein Urine 1+ (Negative); Specific Gravity, Urine 1.015 (1.005-1.030); Urine Appearance Clear (CLEAR); Urine Color Yellow (Yellow); Urobilinogen Urine Norm (Negative); pH Urine 5 (5-7)
[2023-11-24 17:06] LABS: Add Urine Culture? No; Bacteria Urine TRACE /hpf; Hyaline Casts Urine 0-4 /lpf; RBC Urine 0-4 /hpf (0-2); Squamous Epithelial Cell Urine 0-4 /hpf (0-5)
--- NOTE | 2023-11-24 17:18 | ECG_ITS ---
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 Measurements Intervals [place] Rate: 41 P: 253 FL: 260 QRS: -48 QRSD: 149 T: 118 QT: 603 QTc: 498 Interpretive Statements ATRIAL FIBRILLATION WITH SLOW VENTRICULAR HYPERTROPHY INTRAVENTRICULAR CONDUCTION DELAY [130+ ms QRS DURATION] LATERAL MYOCARDIAL INFARCTION , OF INDETERMINATE AGE [40+ ms Q WAVE AND/OR ST/T ABNORMALITY IN I/aVL/V5/V6] INFERIOR MYOCARDIAL INFARCTION , PROBABLY OLD [40+ ms Q WAVE AND/OR ST/T ABNORMALITY IN II/aVF] PROLONGED QT INTERVAL Compared to ECG 11/24/2023 14:12:20 First degree AV block now present Left-axis deviation no longer present Myocardial infarct finding still present Electronically Signed On 11-24-2023 16:54:51 CDT by Rodney Mendez M.D. [id number]
--- NOTE | 2023-11-24 17:35 | PC.NURSE ---
Pt arrived to ICU from ED. pt alert. Heart rate 38. Pt has one IV site to upper left arm. Dr Wallace notified of poor access and incompatible medications. IV start by Ultrasound to right upper arm.. PICC ordered.
--- NOTE | 2023-11-24 17:36 | USCV_ITS ---
Shanna Lang Age: 88 Gender: F : 1935 Exam Date: 11/24/2023 21:42 Ordering Phys: Dav Wallace MD Technologist: [email or web address] Exam Location: [facility] [place] Indication: nstemi admitted for generalized weakness, history of atrial fibrillation, patient denies chest pain. Patient is only semi-responsive in ICU-7. She is unable to perform a Valsalva maneuver or follow breathing instructions. BP: 109 / 42 HR: 77 Rhythm: Sinus Technical Quality: Adequate MEASUREMENTS (Male / Female) Normal Values 2D ECHO LV Diastolic Diameter PLAX 3.7 cm 4.2 - 5.9 / 3.9 - 5.3 cm IVS Diastolic Thickness 1.6 cm 0.6 - 1.0 / 0.6 - 0.9 cm IVS Systolic Thickness 2.0 cm LVPW Diastolic Thickness 1.3 cm 0.6 - 1.0 / 0.6 - 0.9 cm LVPW Systolic Thickness 1.6 cm LVOT Diameter 1.9 cm LV Ejection Fraction 2D Teich 65.7 % LV Ejection Fraction MOD 2C 65.0 % LV Ejection Fraction 2C AL 64.6 % LA Diameter 2.5 cm Aorta at Sinotubular Diameter 3.2 cm IVC Diameter 1.5 cm M-MODE LA Ao Ratio MM 1.0 AV Cusp Separation MM 1.5 cm DOPPLER AV Peak Velocity 146.0 cm/s LVOT Peak Velocity 93.0 cm/s AV Area Cont Eq vti 2.3 cm squared AV Area Cont Eq pk 1.9 cm squared MV Peak Velocity 122.0 cm/s MV Area PHT 3.6 cm squared Mitral E to A Ratio 1.4 TV Peak Velocity 346.0 cm/s TR Peak Velocity 360.0 cm/s TR Peak Gradient 51.8 mmHg TV Peak E Velocity 31.0 cm/s Right Atrial Pressure 3.0 mmHg Pulmonary Artery Systolic Pressu 54.8 mmHg PV Peak Velocity 119.0 cm/s FINDINGS Left Ventricle Normal left ventricular size and systolic function, EF 65%. Moderate left ventricular hypertrophy. No regional wall motion abnormalities. Grade I/IV diastolic dysfunction (abnormal relaxation filling pattern), normal to mildly elevated filling pressures. Right Ventricle The right ventricle is normal in size and function. Right Atrium The right atrium is normal in size. Left Atrium Mildly increased left atrial size. Mitral Valve Thickened mitral valve. Mild mitral annular calcification. Aortic Valve Thickened aortic valve. Tricuspid Valve Moderate tricuspid valve regurgitation. Estimated pulmonary artery peak systolic pressure 55 mmHg Pulmonic Valve Mild pulmonary valve regurgitation. Pericardium Normal pericardium without effusion. Aorta Normal ascending aorta dimension. IVC Normal inferior vena cava. CONCLUSIONS Normal left ventricular size and systolic function, EF 65%. Moderate left ventricular hypertrophy. No regional wall motion abnormalities. Grade I/IV diastolic dysfunction (abnormal relaxation filling pattern), normal to mildly elevated filling pressures. Mildly increased left atrial size. Thickened mitral valve. Mild mitral annular calcification. Thickened aortic valve. Moderate tricuspid valve regurgitation. Moderate pulmonary hypertension. Estimated pulmonary artery peak systolic pressure 55 mmHg. There is no pericardial effusion. There are no intracardiac masses. Compared to the study from 04/10/2023, there is improvement in the LV ejection fraction Dr Toni Galvez MD [facility] (Electronically Signed) Final Date: 25 November 2023 11:17 S
--- NOTE | 2023-11-24 17:36 | USR_ITS ---
PROCEDURE INFORMATION: Exam: US Retroperitoneal; Complete; Kidneys and Bladder Exam date and time: 11/24/2023 9:28 PM Age: 88 years old Clinical indication: Condition or disease; Other: Daren TECHNIQUE: Imaging protocol: Real-time ultrasound of the retroperitoneum with image documentation. Complete exam focused on the kidneys and bladder. COMPARISON: CT chest wo con [id number] 06/21/2021 10:51 AM FINDINGS: Right kidney: The right kidney measures 9.2 x 3.9 x 5.3 cm. The renal cortex measures 1.0 cm. Age-related central renal atrophy. No hydronephrosis.. A brief color Doppler examination of the right kidney was performed showing normal color shifts. Left kidney: The left kidney measures 8.6 x 4.0 x 4.1 cm. The renal cortex measures 1.0 cm. Age-related central renal atrophy. No hydronephrosis. A brief color Doppler examination of the left kidney was performed showing normal color shifts. Urinary bladder: The urinary bladder is drained by a Alanis catheter. The urinary bladder is completely decompressed and difficult to assess. US/US renal BI* [id number] IMPRESSION: Age related renal atrophy, no specific abnormalities.
[2023-11-24] MEDS: ondansetron 2 mg/ML SDV 2 mL 4 MG IVP (17:52)
[2023-11-24] MEDS: pantoprazole 40 mg SDV IVP (17:52)
--- NOTE | 2023-11-24 18:33 | XRR_ITS ---
PROCEDURE INFORMATION: Exam: XR Chest Exam date and time: 11/24/2023 6:59 PM Age: 88 years old Clinical indication: Device placement; Picc; Additional info: Picc line insertion, i will call when ready TECHNIQUE: Imaging protocol: Radiologic exam of the chest. Views: 1 view. COMPARISON: CR XR chest 1V portable [id number] 11/24/2023 2:14 PM FINDINGS: Lungs: No focal consolidation. There is pulmonary edema. Pleural spaces: No evidence of pneumothorax. Possible small bilateral pleural effusions. Heart/Mediastinum: Cardiomediastinal silhouette is within normal limits. Right-sided PICC line in place with tip in the region of the cavoatrial junction. Bones/joints: No evidence of acute osseous abnormality. XR/XR chest 1V portable [id number] IMPRESSION: 1. Right-sided PICC line in place with tip in the region of the cavoatrial junction. 2. Pulmonary edema and possible small bilateral pleural effusions.
--- NOTE | 2023-11-24 18:40 | SUR.PREOP ---
TIME OUT FOR PICC LINE INSERTION
[2023-11-24] MEDS: sodium bicarbonate 150 MEQ in dextrose 5% 1,000 ML 100 MEQ IV (18:53)
[2023-11-24 19:37] LABS: Troponin 5 2HR 23.38 ng/L (0-10); Troponin 5 2HR Delta 0.38 ABS# (0-10)
[2023-11-24] MEDS: DOPamine drip 400 MG/250 ML PREMIX 6.62999999999999989 MG IV (20:08)
[2023-11-24 20:48] LABS: Estmated Average Glucose 91; Hemoglobin A1C 4.8 % (4.0-6.0)
--- NOTE | 2023-11-24 21:00 | PC.NURSE ---
Nausea Patient actively vomiting despite zofran administration at 1752. Dr. Vargas contacted; order received for 5 mg reglan IVP once one. See MAR for details.
[2023-11-24] MEDS: metoclopramide 5 mg/mL SDV 2 mL IVP (21:06)
[2023-11-24 21:12] LABS: Chol HDL Ratio 2.21 mg/dL (0.0-4.40); Cholesterol 104 mg/dL (0-200); HDL Cholesterol 47 mg/dL (60-100); LDL Cholesterol Calculated 37 mg/dL (50-129); LDL HDL Ratio 0.79 RATIO (0.00-3.22); NT Pro B Type Natriuretic Pept 5167 pg/mL (0-450); Procalcitonin 0.99 ng/mL (0-0.5); Triglycerides 98 mg/dL (0-150)
[2023-11-24] MEDS: ofloxacin 0.3% Op Soln 5 mL Btl 1 DROP EYE-BOTH (21:13)
[2023-11-24] MEDS: cefTRIAXone 1,000 MG in sodium chloride 0.9% (plus) 50 ML 100 MG IV (21:14)
--- NOTE | 2023-11-24 21:18 | ECG_ITS ---
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 Measurements Intervals [place] Rate: 70 P: 78 ID: [id number] QRS: 1 QRSD: 100 T: 59 QT: 410 QTc: 445 Interpretive Statements SINUS RHYTHM WITH FIRST DEGREE AV BLOCK NONSPECIFIC ST & T-WAVE ABNORMALITY Compared to ECG 11/24/2023 16:30:35 First degree AV block now present T-wave abnormality now present Atrial fibrillation no longer present Intraventricular conduction delay no longer present Myocardial infarct finding no longer present Prolonged QT interval no longer present Electronically Signed On 11-25-2023 7:50:41 CDT by Rodney Mendez M.D. [email or web address]/[id number]
[2023-11-24 21:26] LABS: Blood Urea Nitrogen 26 mg/dL (8-23); Calcium 7.1 mg/dL (8.5-10.5); Carbon Dioxide 19 mmol/L (22-29); Glucose 118 mg/dL (65-115)
[2023-11-24 21:28] LABS: Troponin 5 6HR 23.86 ng/L (0-10); Troponin 5 6HR Delta 0.86 ng/L (0-12)
[2023-11-24 21:32] LABS: Chloride 98 mmol/L (98-107); Osmolality Calculated 276 mOsm/kg (285-295); Sodium 130 mmol/L (136-145)
--- NOTE | 2023-11-24 21:39 | PM.CONSULT ---
Providers/Reason For Consult Consulting Physician/Specialty*: kommana/nephrology Reason for Consult*: ANGELES Attending Physician: Dav Wallace MD Primary Care Provider: PARISH Medel History of Present Illness History of Present Illness Shanna Lang is a 88 year old female patient is a 88-year-old female with past medical history of A-fib, on amiodarone and anticoagulation, coronary artery disease with bypass, GERD hypertension dyslipidemia presented to [facility] from assisted living due to feeling generalized weakness lightheadedness and dizziness. Also complained of having shortness of breath and chest discomfort. Patient was found to be in slow A-fib and was admitted to ICU for further management. Other lab data significant for hyperkalemia with a potassium of 5 of 6 and ANGELES with a creatinine of 1.8. Prior creatinines were in the 1.11.2 range previously. Renal ultrasound was done that showed no evidence of hydronephrosis. She was started on IV fluids . Review of Systems Narrative: other ros NEGATIVE Medications/Allergies Home Medications Medication Instructions Recorded Confirmed Last Taken Type Back brace #1 ea 11/20/21 11/24/23 02/26/22 Rx doughnut cushion #1 ea 04/07/22 11/24/23 Unknown Rx accommodative orthotic #1 ea 04/15/22 11/24/23 Unknown Rx loperamide 2 mg-simethicone 125 mg 1 tab PO PRN PRN Diarrhea 04/10/23 11/24/23 Unknown History tablet (Imodium Multi-Symptom Relief) aspirin 81 mg tablet,delayed 81 mg PO DAILY 05/25/23 11/24/23 10/24/23 History release amiodarone 200 mg tablet 200 mg PO DAILY #90 tabs 05/26/23 11/24/23 10/24/23 Rx dabigatran etexilate 150 mg 150 mg PO BID #180 caps 05/26/23 11/24/23 10/24/23 Rx capsule (Pradaxa) calcium carbonate 200 mg calcium 200 mg PO BID PRN dyspepsia 30 08/19/23 11/24/23 Unknown Rx (500 mg) chewable tablet (Tums) days #60 tabs tramadol 50 mg tablet 50 mg PO BID PRN pain 30 days #45 08/19/23 11/24/23 10/19/23 Rx tabs nitroglycerin 400 mcg/spray 1 spray translingual Q5M PRN chest 09/10/23 11/24/23 Unknown Rx translingual pain #4.9 grams cetirizine 10 mg capsule (Zyrtec) 10 mg PO DAILY PRN allergy 10/07/23 11/24/23 10/11/23 Rx symptoms 30 days #30 caps furosemide 20 mg tablet 20 mg PO DAILY 90 days #90 tabs 10/12/23 11/24/23 10/24/23 Rx potassium chloride 20 mEq oral 20 meq PO DAILY 100 days #100 ea 10/12/23 11/24/23 10/24/23 Rx packet (Klor-Con) Lactobacillus rhamnosus-Bifidobac. 1 cap PO QAM 10/24/23 11/24/23 10/24/23 History animalis 3 billion cell capsule (1CloudStar) ascorbic acid (vitamin C) 500 mg 2,000 mg PO DAILY 10/24/23 11/24/23 10/24/23 History tablet (Vitamin C) atorvastatin 40 mg tablet 40 mg PO DAILY 10/24/23 11/24/23 10/23/23 History omeprazole 40 mg capsule,delayed 40 mg PO BEDTIME 10/24/23 11/24/23 10/24/23 History release zinc gluconate 50 mg tablet 50 mg PO DAILY 10/24/23 11/24/23 10/24/23 History ferrous sulfate 325 mg (65 mg 325 mg PO DAILY 30 days #30 tabs 10/29/23 11/24/23 Unknown Rx iron) tablet (Feosol) leflunomide 20 mg tablet 20 mg PO DAILY #90 tabs 11/10/23 11/24/23 Unknown Rx acetaminophen 500 mg tablet 500 mg PO BID fever 30 days #60 11/17/23 11/24/23 Unknown Rx (Tylenol Extra Strength) tabs ondansetron 4 mg disintegrating 4 mg PO .COMPLEX #30 tabs 11/19/23 11/24/23 Unknown Rx tablet acetaminophen 650 mg 650 mg PO Q4H PRN Pain 11/24/23 11/24/23 Unknown History tablet,extended release folic acid 1 mg tablet 1 mg PO TID 11/24/23 11/24/23 Unknown History gabapentin 100 mg capsule 200 mg PO .AFTERNOON 11/24/23 11/24/23 Unknown History gabapentin 300 mg capsule 300 mg PO BID 11/24/23 11/24/23 Unknown History levothyroxine 100 mcg capsule 100 mcg PO DAILY 11/24/23 11/24/23 Unknown History (Tirosint) ofloxacin 0.3 % eye drops 1 drp ophthalmic (eye) QID 11/24/23 11/24/23 Unknown History Allergies Allergy/AdvReac Type Severity Reaction Status Date / Time lactose Allergy Unknown Verified 11/24/23 14:12 Sulfa (Sulfonamide Allergy ADR-Vomitin Verified 11/24/23 14:12 Antibiotics) g Current Medications Generic Name Dose Route Start Last Admin Trade Name Freq PRN Reason Stop Dose Admin Dopamine HCl/Dextrose 400 mg in 250 mls @ 6.634 mls/hr 11/24/23 17:36 11/24/23 20:08 Intropin Drip IV 3 mcg/kg/min CONT INOCENCIA 6.63 mls/hr Administration Protocol 3 MCG/KG/MIN Sodium Bicarbonate 150 meq/ 1,150 mls @ 100 mls/hr 11/24/23 09:45 11/24/23 21:00 Dextrose IV 100 mls/hr .[id number] INOCENCIA Infusion Ceftriaxone Sodium 1,000 mg/ 50 mls @ 100 mls/hr 11/24/23 17:45 11/24/23 21:14 Sodium Chloride IV 100 mls/hr Q24H INOCENCIA Administration Protocol Ofloxacin 1 drop 11/24/23 21:00 11/24/23 21:13 Ofloxacin 0.3% Op Soln 5 Ml Btl EYE-BOTH 1 drop QID INOCENCIA Administration Ondansetron HCl 4 mg 11/24/23 17:36 11/24/23 17:52 Ondansetron 2 Mg/Ml Sdv 2 Ml IVP 4 mg Q6H PRN Administration NAUSEA AND VOMITING Pantoprazole Sodium 40 mg 11/24/23 17:36 11/24/23 17:52 Pantoprazole 40 Mg Sdv IVP 40 mg Q24H INOCENCIA Administration PFSH Acute PFSH: Medical History Seropositive rheumatoid arthritis of multiple sites Immunization counseling High risk medication use Anal sphincter incompetence History of nonmelanoma skin cancer History of melanoma Scoliosis CAD (coronary artery disease) Rheumatoid arthritis Reported hx by pt Scoliosis (and kyphoscoliosis), idiopathic Anxiety and depression Afib Menopause Hypothyroidism Angina pectoris GERD (gastroesophageal reflux disease) Recurrent urinary tract infection Hyperlipidemia Hypertension Surgical History History of hand surgery History of open heart surgery 2000 History of hysterectomy History of intestinal surgery History of tonsillectomy Hx of foot surgery right foot Family History Mother Diabetes Other Parkinson disease Social History Smoking and tobacco/nicotine status: never used tobacco/nicotine Alcohol intake: never Substance/Drug Use: never Adopted: No Caregiver/support person: No Lives independently: No Household members: family service: No Sexually active: No Do you think of yourself as: Straight/Heterosexual Current gender identity: Female Vitals/I&O/Wt Last Vital Signs Temp 96.4 F L 11/24/23 17:45 Pulse 39 L 11/24/23 19:30 Resp 18 11/24/23 19:30 BP 104/43 11/24/23 18:45 Pulse Ox 96 11/24/23 19:30 O2 Del Method Room Air 11/24/23 19:30 11/24/23 11/24/23 11/24/23 06:59 14:59 22:59 Intake Total 696.667 / 696.667 Balance 696.667 / 696.667 Weight last 48 hrs Weight 62.369 kg Weight 58.967 kg Physical Exam Narrative: AWAKE , ALERT , NO DISTRESS S1S2 RRR per report lungs clear per report no edema Urinary Catheter Management: Alanis: Cath Placed During This Visit: yes Reason for Continuing Indwelling Catheter: Accurate Measurement of Urinary Output in Critically Ill Patients Urinary Catheter Date of Insertion: 11/24/23 Urinary Catheter Time of Insertion: 15:43 Data 11/25/23 05:45 11/25/23 05:45 Micro: Microbiology 11/24/23 19:00 Blood Culture - Preliminary Blood SPECIMEN COLLECTED 11/24/23 18:40 Blood Culture - Preliminary Blood SPECIMEN COLLECTED A&P Assessment and plan (1) Acute kidney injury: Plan 1. acute on chronic kidney disease stage III: Baseline creatinine in the 1.2 range, now has an ANGELES with a creatinine of 1.8 most likely prerenal in the setting of hypotension and bradycardia. Agree with IV fluids, avoid nephrotoxins and contrast studies, monitor 2. Hyperkalemia with potassium level of 6 on presentation improved now with medical management, placed on low K diet 3. Bradycardia on dopamine, cardiology following 4. Metabolic acidosis: Mild, improved, likely from ANGELES Patient evaluated using audiovisual cart. Time spent 40 minutes Consult Attestations Medical Necessity Statement: PER CARLOS Coding Level of Care Code Acute Code for [facility] Fwd Diagnoses Acute kidney injury N17.9
[2023-11-24 21:41] LABS: Creatinine Clr Calc Pharmacy 19.7016
[2023-11-24] MEDS: folic acid 1 mg Tablet PO (22:16)
[2023-11-24] MEDS: gabapentin 300 mg Capsule PO (22:16)
[2023-11-25] VITALS (71 sets, daily range): BP systolic 70–177; BP diastolic 36–91; PULSE 46–87; RESP 14–26; TEMP 36.4–37; O2SAT 88–100; BMI 23.3
--- NOTE | 2023-11-25 00:53 | PC.NURSE ---
Patient's BP continued to stay elevated in the 180-190s systolic while on the dopamine drip. Dr. Vargas was notified and gave a telephone order to pause the dopamine drip, continue to monitor BP. If BP still elevated after 35-40 minutes give a one time dose of 5mg hydralazine IVP.
[2023-11-25 00:54] LABS: Glucose Point of Care 131 mg/dL (70-110)
--- NOTE | 2023-11-25 01:13 | PC.NURSE ---
Patient's BP decreased with a MAP of 59 and HR stayed within the 40s after pausing the dopamine drip. Dr. Vargas was notified and gave telephone orders to continue the dopamine drip and titrate it to maintain HR in the 60s.
[2023-11-25 06:06] LABS: Basophils # 0.1 10^3/uL (0.0-0.1); Basophils % 0.2 %; Hematocrit 27.6 % (36-47); Lymphocytes # 0.3 10^3/uL (0.8-4.8); Mean Corpuscular HGB Conc 31.2 g/dL (30-55); Mean Corpuscular Hemoglobin 32.7 pg (27-33); Mean Corpuscular Volume 104.9 fl (85-98); Monocytes # 1.1 10^3/uL (0.2-0.9); Monocytes % 3.9 %; Neutrophils % 94.2 %; Nucleated Red Blood Cells % 0 %; Platelet Count 224 10^3/cmm (157-399); Red Blood Count 2.63 10^6/uL (3.85-5.65); Red Cell Distribution Width 15.9 % (12.1-15.1); White Blood Count 28.89 10^3/uL (3.29-11.43)
[2023-11-25 06:40] LABS: Alanine Aminotransferase 22 U/L (0-33); Alkaline Phosphatase 141 U/L (35-105); Aspartate Amino Transferase 25 U/L (0-32); Blood Urea Nitrogen 22 mg/dL (8-23); Calcium 6.3 mg/dL (8.5-10.5); Carbon Dioxide 26 mmol/L (22-29); Chloride 94 mmol/L (98-107); Creatinine Clr Calc Pharmacy 22.0816; Globulin 2.6 g/dL (1.3-4.6); Glucose 126 mg/dL (65-115); Osmolality Calculated 279 mOsm/kg (285-295); Phosphorus 3.4 mg/dL (2.5-4.5); Sodium 132 mmol/L (136-145); Total Bilirubin 0.4 mg/dL (0.15-1.2); Total Protein 5.6 g/dL (6.6-8.7)
[2023-11-25 06:47] LABS: Anion Gap 15.7 (5-19); Potassium 3.7 mmol/L (3.5-5.1)
[2023-11-25] MEDS: sodium bicarbonate 150 MEQ in dextrose 5% 1,000 ML 100 MEQ IV (07:37)
--- NOTE | 2023-11-25 09:22 | PC.NURSE ---
DR Galvez, at bedside, verbally ordered to reduce Dopamine to 4mcg/kg/min
[2023-11-25 09:35] LABS: Calcium 6.1 mg/dL (8.5-10.5)
[2023-11-25 09:42] LABS: Parathyroid Hormone 715.9 pg/mL (15-65)
[2023-11-25] MEDS: gabapentin 300 mg Capsule PO ×2 (09:43→18:12)
[2023-11-25] MEDS: levothyroxine 100 mcg Tablet PO (09:43)
[2023-11-25] MEDS: zinc gluconate 50 mg Tablet PO (09:43)
[2023-11-25] MEDS: atorvastatin 40 mg Tablet PO (09:43)
[2023-11-25] MEDS: aspirin 81 mg EC Tablet PO (09:43)
[2023-11-25] MEDS: meropenem 1,000 MG in sodium chloride 0.9% (plus) 50 ML 100 MG IV ×2 (09:43→18:12)
[2023-11-25] MEDS: folic acid 1 mg Tablet PO ×3 (09:43→21:18)
[2023-11-25] MEDS: ofloxacin 0.3% Op Soln 5 mL Btl 1 DROP EYE-BOTH ×4 (09:45→21:18)
[2023-11-25 09:47] LABS: Ionized Calcium 0.8 mmol/L (1.1-1.4)
[2023-11-25 12:13] LABS: Adenovirus Not Detected (NOT DETECT); Chlamydia Pneumoniae Not Detected (NOT DETECT); Coronavirus 229E,HKU1,NL63,OC4 Not Detected (NOT DETECT); Human Metapneumovirus Not Detected (NOT DETECT); Human Rhinovirus/Enterovirus Not Detected (NOT DETECT); Influenza A Not Detected (NOT DETECT); Influenza A H1 Not Detected (NOT DETECT); Influenza A H1-2009 Not Detected (NOT DETECT); Influenza A H3 Not Detected (NOT DETECT); Influenza B Not Detected (NOT DETECT); Mycoplasma Pneumoniae Not Detected (NOT DETECT); Parainfluenza Virus Type 1 Not Detected (NOT DETECT); Parainfluenza Virus Type 2 Not Detected (NOT DETECT); Parainfluenza Virus Type 3 Not Detected (NOT DETECT); Parainfluenza Virus Type 4 Not Detected (NOT DETECT); Respiratory Syncytial Virus A Not Detected (NOT DETECT); Respiratory Syncytial Virus B Not Detected (NOT DETECT); SARS-COV-2 Not Detected (NOT DETECT)
[2023-11-25] MEDS: sodium chloride 0.9% 1,000 ML 100 ML IV ×2 (12:17→21:19)
[2023-11-25] MEDS: DOPamine drip 400 MG/250 ML PREMIX 9.35999999999999943 MG IV (12:20)
--- NOTE | 2023-11-25 14:00 | P.PN_ITS ---
Subjective 2 Subjective: Patient was seen this morning, she denies any lightheadedness, no dizziness, no nausea, no vomiting, no shortness of breath no abdominal pain, no flank pain, she has been on dopamine drip for her bradycardia, currently n.p.o., awaiting cardiology's recommendation we discussed her elevated white blood cell count, etiology unclear she has no particular complaints, no diarrhea, no nausea, no vomiting, we will continue to monitor Vitals/I&O/Wt Last Vital Signs Temp 97.5 F L 11/25/23 07:45 Pulse 72 11/25/23 12:30 Resp 19 H 11/25/23 12:30 BP 107/66 11/25/23 12:30 Pulse Ox 97 11/25/23 12:15 O2 Del Method Nasal Cannula 11/25/23 12:30 O2 Flow Rate 1 11/25/23 12:30 11/24/23 11/25/23 11/25/23 22:59 06:59 14:59 Intake Total 812.911 / 812.911 998.362 / 1811.273 593.237 / 593.237 Output Total 550 / 550 1000 / 1550 Balance 262.911 / 262.911 -1.638 / 261.273 593.237 / 593.237 Weight last 48 hrs Weight 61.83 kg Weight 62.369 kg Weight 58.967 kg Physical Exam 2 Const: COMMON NORMALS: no acute distress and patient oriented x3 Resp: COMMON NORMALS: normal respiratory effort, No retractions, No use of accessory muscles and clear to auscultation bilaterally AUSCULTATION: clear to auscultation bilaterally Cardio: COMMON NORMALS: regular rate, regular rhythm, S1 normal heart sound present and S2 normal heart sound present RATE: regular rate RHYTHM: r egular rhythm HEART SOUNDS: S1 normal heart sound present and S2 normal heart sound present GI: COMMON NORMALS: Normal to inspection, nondistended, normoactive bowel sounds present and non-tender Extremity: COMMON NORMALS: no pedal edema Neuro: COMMON NORMALS: patient oriented x3 Psych: COMMON NORMALS: mental status grossly normal Urinary Catheter Management: Alanis: Cath Placed During This Visit: yes Reason for Continuing Indwelling Catheter: Accurate Measurement of Urinary Output in Critically Ill Patients Urinary Catheter Date of Insertion: 11/24/23 Urinary Catheter Time of Insertion: 15:43 Data 11/25/23 05:45 11/25/23 05:45 Micro: Microbiology 11/24/23 19:00 Blood Culture - Preliminary Blood SPECIMEN COLLECTED 11/24/23 18:40 Blood Culture - Preliminary Blood SPECIMEN COLLECTED A&P Assessment and plan (1) Bradycardia, severe sinus: (2) Hypertension: Qualifiers: Hypertension type: primary hypertension Qualified Code(s): I10 - Essential (primary) hypertension (3) CAD (coronary artery disease): (4) Afib: Qualifiers: Atrial fibrillation type: longstanding persistent Qualified Code(s): I 48.11 - Longstanding persistent atrial fibrillation (5) Tachy-sonali syndrome: (6) PVD (peripheral vascular disease): (7) Hyperlipidemia: Qualifiers: Hyperlipidemia type: mixed hyperlipidemia Qualified Code(s): E78.2 - Mixed hyperlipidemia (8) Hypothyroidism: (9) Acute kidney injury: (10) Hyperkalemia: (11) Hyponatremia: (12) Goals of care, counseling/discussion: (13) Leukocytosis: (14) Hypocalcemia: Plan Bradycardia -Possibly secondary to amiodarone, ? Possibly secondary to sick sinus syndrome, tachybradycardia syndrome ? Had extensive discussion with patient about pacemaker placement, she is agreeable to pacemaker placement if it is absolutely required ? Plan, ?on dopamine, ? Will watch her in the ICU closely, ? Externally paced if required, ? Cardiology consulted, ? Hold Pradaxa if there is any plans on placing pacemaker, ? Monitor blood pressures and heart rates closely Hyperkalemia, resolved ? Has received insulin, D10, Kayexalate bicarb in the emergency room Hypocalcemia ? Check PTH, ionized calcium, vitamin D, ? Start supplementation Acute kidney injury, resolving ? Creatinine 1.6 ? Renal ultrasound, ? Consult nephrology -ivf Metabolic acidosis, resolving ? Lactic acid within normal limits, -Next it could be from bradycardia, hypotension ? ER a started sodium bicarb Hyponatremia, IV fluids UTI, currently on meropenem Leukocytosis of 29,000, follow blood cultures, urine cultures, chest x-ray no focal infiltrates respiratory viral panel, continue to monitor closely Goals of care discussion, patient tells me that she wants to remain a full code, until her grandson from [place] can come and see her, agreeable for pacemaker placement if required SCDs for DVT prophylaxis Attestations 2 Medical Necessity Statement*: Patient requires hospitalization for bradycardia, requiring dopamine drip, ANGELES, leukocytosis, UTI Diagnoses Bradycardia, severe sinus R00.1 Primary hypertension I10 Hypertension type: primary hypertension CAD (coronary artery disease) I25.10 Longstanding persistent atrial fibrillation I48.11 Atrial fibrillation type: longstanding persistent Tachy-sonali syndrome I49.5 PVD (peripheral vascular disease) I73.9 Mixed hyperlipidemia E78.2 Hyperlipidemia type: mixed hyperlipidemia Hypothyroidism E03.9 Acute kidney injury N17.9 Hyperkalemia E87.5 Hyponatremia E87.1 Goals of care, counseling/discussion Z71.89 Leukocytosis D72.829 Hypocalcemia E83.51
[2023-11-25] MEDS: calcium carbonate 500 mg Chew Tablet 1000 MG PO (14:51)
[2023-11-25] MEDS: gabapentin 100 mg Capsule 200 MG PO (14:51)
[2023-11-25] MEDS: cholecalciferol (vitamin D3) 1,000 unit Tablet 2000 UNIT PO (14:51)
[2023-11-25 15:04] LABS: 25 Hydroxy Vitamin D 20 ng/mL (30-100)
[2023-11-25 15:19] LABS: Ionized Calcium 0.7 mmol/L (1.1-1.4)
--- NOTE | 2023-11-25 16:28 | P.PN_ITS ---
Subjective 2 Subjective: feels bettter Medications: Reviewed: Yes Vitals/I&O/Wt Last Vital Signs Temp 98.3 F 11/25/23 13:30 Pulse 63 11/25/23 16:00 Resp 21 H 11/25/23 16:00 BP 104/41 11/25/23 16:00 Pulse Ox 99 11/25/23 16:00 O2 Del Method Nasal Cannula 11/25/23 16:00 O2 Flow Rate 1 11/25/23 16:00 11/25/23 11/25/23 11/25/23 06:59 14:59 22:59 Intake Total 998.362 / 1811.273 893.237 / 893.237 Output Total 1000 / 1550 Balance -1.638 / 261.273 893.237 / 893.237 Weight last 48 hrs Weight 61.83 kg Weight 62.369 kg Weight 58.967 kg Physical Exam 2 Narrative: AWAKE , ALERT , NO DISTRESS S1S2 RRR per report lungs clear per report no edema Urinary Catheter Management: Alanis: Cath Placed During This Visit: yes Reason for Continuing Indwelling Catheter: Accurate Measurement of Urinary Output in Critically Ill Patients Urinary Catheter Date of Insertion: 11/24/23 Urinary Catheter Time of Insertion: 15:43 Data 11/25/23 05:45 11/25/23 05:45 Micro: Microbiology 11/24/23 19:00 Blood Culture - Preliminary Blood SPECIMEN COLLECTED 11/24/23 18:40 Blood Culture - Preliminary Blood SPECIMEN COLLECTED A&P Assessment and plan (1) Acute kidney injury: Plan 1. acute on chronic kidney disease stage III: Baseline creatinine in the 1.2 range, now has an ANGELES with a creatinine of 1.8 most likely prerenal in the setting of hypotension and bradycardia. Agree with IV fluids, avoid nephrotoxins and contrast studies, monitor Cr improving 2. Hyperkalemia with potassium level of 6 on presentation improved now with medical management, placed on low K diet 3. Bradycardia on dopamine, cardiology following 4. Metabolic acidosis: Mild, improved, likely from ANGELES Patient evaluated using audiovisual cart. Time spent 20 minutes Attestations 2 Medical Necessity Statement*: per medicine Coding Level of Care Code Acute Code for [facility] Diagnoses Acute kidney injury N17.9
[2023-11-25] MEDS: pantoprazole 40 mg SDV IVP (18:12)
--- NOTE | 2023-11-25 19:30 | PC.NURSE ---
Shift summary: Late entry: Pt rested in bed throughout the shift. She is very drowsy and lethargic today. Dopamine remains infusing, Dr Galvez verbally ordered rate reduced to 4 mcg/kg/min from 5.5. She was hypotensive for about an hour until her BP rebounded back. sinus rhythm noted on monitor through shift. Her heart rated stayed 64 or greater this shift. Bicarb gtt stopped and NS IVF started. Her WBC jumped to greater than 28 so antibiotics started. Her urinary output was 925 ml. NO BM noted.
--- NOTE | 2023-11-25 19:47 | P.PN_ITS ---
Subjective 2 Subjective: Patient is feeling okay. She has not had a recurrence of bradycardia. Telemetry shows normal sinus rhythm. Denies any fever or chills. No cough. No other specific complaints at this time. Medications: Medication Review Details: Current Medications Acetaminophen (Acetaminophen 325 Mg Tablet) 650 mg PO Q6H PRN PRN Reason: Mild/Mod Pain Or Temp >/= 101 Aspirin (Aspirin 81 Mg Ec Tablet) 81 mg PO DAILY [facility] Last Admin: 11/25/23 09:43 Dose: 81 mg Atorvastatin Calcium (Atorvastatin 40 Mg Tablet) 40 mg PO DAILY [facility] Last Admin: 11/25/23 09:43 Dose: 40 mg Calcium Carbonate (Calcium Carbonate 500 Mg Chew Tablet) 1,000 mg PO Q12H [facility] Last Admin: 11/25/23 14:51 Dose: 1,000 mg Folic Acid (Folic Acid 1 Mg Tablet) 1 mg PO TID [facility] Last Admin: 11/25/23 14:51 Dose: 1 mg Gabapentin (Gabapentin 300 Mg Capsule) 300 mg PO BID [facility] Last Admin: 11/25/23 18:12 Dose: 300 mg Gabapentin (Gabapentin 100 Mg Capsule) 200 mg PO 1400 [facility] Last Admin: 11/25/23 14:51 Dose: 200 mg Heparin Sodium (Porcine) (Heparin 5,000 Unit/Ml Inj 1 Ml) 0 unit IV PRN PRN; Protocol PRN Reason: Heparin weight-base protocol Dextrose (D10w) 250 mls @ 1,000 mls/hr IV PRN PRN PRN Reason: HYPOGLYCEMIA Dopamine HCl/Dextrose (Intropin Drip) 400 mg in 250 mls @ 11.694 mls/hr IV CONT [facility]; Protocol Last Admin: 11/25/23 12:20 Dose: 4 mcg/kg/min, 9.36 mls/hr Meropenem 1,000 mg/ Sodium (Chloride) 50 mls @ 100 mls/hr IV Q8H [facility]; Protocol Last Admin: 11/25/23 18:12 Dose: 100 mls/hr Sodium Chloride (Sodium Chloride 0.9%) 1,000 mls @ 100 mls/hr IV .Q10H [facility] Last Admin: 11/25/23 12:17 Dose: 100 mls/hr Heparin Sodium/Sodium Chloride (Heparin Drip) 25,000 unit in 500 mls @ 0 mls/hr IV .Q0M [facility]; Protocol Levothyroxine Sodium (Levothyroxine 100 Mcg Tablet) 100 mcg PO DAILY [facility] Last Admin: 11/25/23 09:43 Dose: 100 mcg Ofloxacin (Ofloxacin 0.3% Op Soln 5 Ml Btl) 1 drop EYE-BOTH QID [facility] Last Admin: 11/25/23 18:12 Dose: 1 drop Ondansetron HCl (Ondansetron 2 Mg/Ml Sdv 2 Ml) 4 mg IVP Q6H PRN PRN Reason: NAUSEA AND VOMITING Last Admin: 11/24/23 17:52 Dose: 4 mg Pantoprazole Sodium (Pantoprazole 40 Mg Sdv) 40 mg IVP Q24H [facility] Last Admin: 11/25/23 18:12 Dose: 40 mg Vitamin D (Cholecalciferol (Vitamin D3) 1,000 Unit Tablet) 2,000 unit PO DAILY [facility] Last Admin: 11/25/23 14:51 Dose: 2,000 unit Zinc Gluconate (Zinc Gluconate 50 Mg Tablet) 50 mg PO DAILY [facility] Last Admin: 11/25/23 09:43 Dose: 50 mg Vitals/I&O/Wt Last Vital Signs Temp 98.3 F 11/25/23 13:30 Pulse 67 11/25/23 18:30 Resp 17 11/25/23 18:30 BP 111/43 11/25/23 18:30 Pulse Ox 99 11/25/23 18:30 O2 Del Method Nasal Cannula 11/25/23 18:30 O2 Flow Rate 1 11/25/23 18:30 11/25/23 11/25/23 11/25/23 06:59 14:59 22:59 Intake Total 998.362 / 1811.273 893.237 / 893.237 200 / 1093.237 Output Total 1000 / 1550 925 / 925 Balance -1.638 / 261.273 893.237 / 893.237 -725 / 168.237 Weight last 48 hrs Weight 136 lb 5 oz Weight 137 lb 8 oz Weight 130 lb Physical Exam 2 Narrative: GENERAL: The patient is alert and oriented times three. Not in any acute distress. HEENT: No significant pallor, icterus or lymphadenopathy.Oral cavity: There are no mucous membrane lesions. NECK: Trachea appears to be central. No masses noted. No JVD or thyromegaly appreciated. RESPIRATORY: Chest is symmetrical. No intercostals muscle retraction or any accessory muscle activation. There is no chest wall tenderness. Breath sounds are heard bilaterally. No rales or rhonchi heard. No evidence of any consolidation. BREASTS: Deferred. HEART: The heart sounds are normal. No S3 or S4. Short systolic murmur in the lower sternal border. No diastolic murmurs.. No pericardial rub ABDOMEN: No vessel pulsations or distention. No tenderness. No organomegaly appreciated. Bowel sounds are normally heard. : Deferred. RECTAL: Deferred. LYMPHATIC: No lymphadenopathy noted in the neck. EXTREMITIES: No edema or cyanosis. No clubbing. MUSCULOSKELETAL: No acute joint deformities or swelling SKIN: There are no significant rashes or ecchymosis NEUROPSYCHIATRIC: The patient is alert and oriented x3. Somewhat lethargic. Urinary Catheter Management: Alnais: Cath Placed During This Visit: yes Reason for Continuing Indwelling Catheter: Accurate Measurement of Urinary Output in Critically Ill Patients Urinary Catheter Date of Insertion: 11/24/23 Urinary Catheter Time of Insertion: 15:43 Data 11/26/23 04:19 11/26/23 04:19 Other Labs: Laboratory Last Values WBC 28.89 10^3/uL (3.29-11.43) H 11/25/23 05:45 RBC 2.63 10^6/uL (3.85-5.65) L 11/25/23 05:45 Hgb 8.60 g/dL (11.27-16.99) L 11/25/23 05:45 Hct 27.6 % (36-47) L 11/25/23 05:45 MCV 104.9 fl (85-98) H 11/25/23 05:45 MCH 32.7 pg (27-33) 11/25/23 05:45 MCHC 31.2 g/dL (30-55) D 11/25/23 05:45 RDW 15.9 % (12.1-15.1) H 11/25/23 05:45 Plt Count 224 10^3/cmm (157-399) 11/25/23 05:45 MPV 10.0 fL (7.4-10.4) 11/25/23 05:45 Neut % (Auto) 94.2 % 11/25/23 05:45 Lymph % (Auto) 1.0 % 11/25/23 05:45 [place] % (Auto) 3.9 % 11/25/23 05:45 Eos % (Auto) 0.0 % 11/25/23 05:45 Baso % (Auto) 0.2 % 11/25/23 05:45 Neut # (Auto) 27.20 10^3/uL (1.8-7.7) H 11/25/23 05:45 Lymph # (Auto) 0.3 10^3/uL (0.8-4.8) L 11/25/23 05:45 [place] # (Auto) 1.1 10^3/uL (0.2-0.9) H 11/25/23 05:45 Eos # (Auto) 0.0 10^3/uL (0.0-0.8) 11/25/23 05:45 Baso # (Auto) 0.1 10^3/uL (0.0-0.1) 11/25/23 05:45 Nucleated RBC % (auto) 0 % 11/25/23 05:45 Nucleated RBCs # 0.0 /100WBC 11/25/23 05:45 Sodium 132 mmol/L (136-145) L 11/25/23 05:45 Potassium 3.7 mmol/L (3.5-5.1) 11/25/23 05:45 Chloride 94 mmol/L (98-107) L 11/25/23 05:45 Carbon Dioxide 26 mmol/L (22-29) 11/25/23 05:45 Anion Gap 15.7 (5-19) 11/25/23 05:45 BUN 22 mg/dL (8-23) 11/25/23 05:45 Creatinine 1.6 mg/dL (0.5-0.9) H 11/25/23 05:45 GFR Calculation Not Reportable 11/25/23 05:45 Glucose 126 mg/dL (65-115) H 11/25/23 05:45 POC Glucose 131 mg/dL (70-110) H 11/24/23 21:01 Estimat Average Glucose 91 11/24/23 18:40 Hemoglobin A1c 4.8 % (4.0-6.0) 11/24/23 18:40 Calculated Osmolality 279 mOsm/kg (285-295) L 11/25/23 05:45 Lactic Acid 1.4 mmol/L (0.5-2.2) 11/24/23 14:56 Calcium 6.3 mg/dL (8.5-10.5) L 11/25/23 05:45 Ionized Calcium [place]yah 0.7 mmol/L (1.1-1.4) L* 11/25/23 15:04 Phosphorus 3.4 mg/dL (2.5-4.5) 11/25/23 05:45 Magnesium 2.0 mg/dL (1.7-2.3) 11/25/23 05:45 Total Bilirubin 0.4 mg/dL (0.15-1.2) 11/25/23 05:45 AST 25 U/L (0-32) 11/25/23 05:45 ALT 22 U/L (0-33) 11/25/23 05:45 Alkaline Phosphatase 141 U/L (35-105) H 11/25/23 05:45 Troponin T Baseline 23 ng/L (0-10) H 11/24/23 15:28 Troponin T 120 Minute 23.38 ng/L (0-10) H 11/24/23 18:40 Delta Troponin T 0.38 ABS# (0-10) 11/24/23 18:40 Troponin T Hi Sens 6Hr 23.86 ng/L (0-10) H 11/24/23 21:01 Troponin T Hi Sens 6Hr Delta 0.86 ng/L (0-12) 11/24/23 21:01 C-Reactive Protein 19.0 mg/L (0.0-4.9) H 11/24/23 18:40 NT-Pro-B Natriuret Pep 5167 pg/mL (0-450) H 11/24/23 18:40 Total Protein 5.6 g/dL (6.6-8.7) L 11/25/23 05:45 Albumin 3.0 g/dL (3.5-5.2) L 11/25/23 05:45 Globulin 2.6 g/dL (1.3-4.6) 11/25/23 05:45 Triglycerides 98 mg/dL (0-150) 11/24/23 18:40 Cholesterol 104 mg/dL (0-200) 11/24/23 18:40 LDL Cholesterol, Calc 37 mg/dL (50-129) L 11/24/23 18:40 HDL Cholesterol 47 mg/dL (60-100) L 11/24/23 18:40 LDL/HDL Ratio 0.79 RATIO (0.00-3.22) 11/24/23 18:40 Cholesterol/HDL Ratio 2.21 mg/dL (0.0-4.40) 11/24/23 18:40 Lipase 20 U/L (13-60) 11/24/23 15:28 25-OH Vitamin D Total 20 ng/mL (30-100) L 11/25/23 05:49 Procalcitonin 0.99 ng/mL (0-0.5) H 11/24/23 18:40 TSH 1.01 uIU/mL (0.27-4.20) 11/24/23 15:28 PTH Intact 715.9 pg/mL (15-65) H 11/25/23 04:45 Calcium (PTH Intact) 6.1 mg/dL (8.5-10.5) L 11/25/23 04:45 Urine Color Yellow (Yellow) 11/24/23 15:40 Urine Appearance Clear (CLEAR) 11/24/23 15:40 Urine pH 5 (5-7) 11/24/23 15:40 Ur Specific [place] 1.015 (1.005-1.030) 11/24/23 15:40 Urine Protein 1+ (Negative) H 11/24/23 15:40 Urine Glucose (UA) Norm (Normal) 11/24/23 15:40 Urine Ketones 1+ (Negative) H 11/24/23 15:40 Urine Blood Neg (Negative) 11/24/23 15:40 Urine Nitrate Negative (Negative) 11/24/23 15:40 Urine Bilirubin 1+ (Negative) H 11/24/23 15:40 Urine Urobilinogen Norm mg/dL (Negative) 11/24/23 15:40 Ur Leukocyte Esterase Trace (Negative) H 11/24/23 15:40 Urine RBC 0-4 /hpf (0-2) H 11/24/23 15:40 Urine WBC 10-15 /hpf (0-5) H 11/24/23 15:40 Ur Squamous Epith Cells 0-4 /hpf (0-5) H 11/24/23 15:40 Amorphous Sediment Not Reportable 11/24/23 15:40 Urine Bacteria Trace /hpf (NONE) 11/24/23 15:40 Hyaline Casts 0-4 /lpf H 11/24/23 15:40 Adenovirus (PCR) Not detected (NOT DETECT) 11/25/23 09:55 C. pneumoniae DNA (PCR) Not detected (NOT DETECT) 11/25/23 09:55 Coronavirus 229E (PCR) Not detected (NOT DETECT) 11/25/23 09:55 Human Metapneumovir PCR Not detected (NOT DETECT) 11/25/23 09:55 Influenza A (H1) PCR Not detected (NOT DETECT) 11/25/23 09:55 Influ A (H1/09) PCR Not detected (NOT DETECT) 11/25/23 09:55 Influenza A (H3) PCR Not detected (NOT DETECT) 11/25/23 09:55 Influenza Type A (PCR) Not detected (NOT DETECT) 11/25/23 09:55 Influenza Type B (PCR) Not detected (NOT DETECT) 11/25/23 09:55 M. pneumoniae (PCR) Not detected (NOT DETECT) 11/25/23 09:55 Parainfluenza 1 (PCR) Not detected (NOT DETECT) 11/25/23 09:55 Parainfluenza 2 (PCR) Not detected (NOT DETECT) 11/25/23 09:55 Parainfluenza 3 (PCR) Not detected (NOT DETECT) 11/25/23 09:55 Parainfluenza 4 (PCR) Not detected (NOT DETECT) 11/25/23 09:55 RSV Type A (PCR) Not detected (NOT DETECT) 11/25/23 09:55 RSV Type B (PCR) Not detected (NOT DETECT) 11/25/23 09:55 Entero/Rhino (PCR) Not detected (NOT DETECT) 11/25/23 09:55 SARS-CoV-2 (PCR) Not detected (NOT DETECT) 11/25/23 09:55 Micro: Microbiology 11/24/23 19:00 Blood Culture - Preliminary Blood NEGATIVE TO DATE 11/24/23 18:40 Blood Culture - Preliminary Blood NEGATIVE TO DATE A&P Assessment and plan (1) Bradycardia: Continue to hold the metoprolol/amiodarone (2) Atrial fibrillation with rapid ventricular response: Patient is on long-term oral anticoagulation. This may be continued. (3) Atherosclerosis of coronary artery of [place] heart without angina pectoris: Her Myocardial perfusion imaging in April of last year was unremarkable. I will hold off on any intervention at this point. Patient has some tight feeling in the chest, could be related to the bradycardia. Today she has no chest pain or chest tightness. Qualifiers: Coronary Disease-Associated Artery/Lesion type: [place] artery Qualified Code(s): I25.10 - Atherosclerotic heart disease of [place] coronary artery without angina pectoris (4) Hyperlipidemia: May continue on the current management. Qualifiers: Hyperlipidemia type: mixed hyperlipidemia Qualified Code(s): E78.2 - Mixed hyperlipidemia (5) Peripheral arterial disease: Currently asymptomatic and stable. Continue on the current management. Plan If the patient continues to remain stable, may be transferred out of the ICU. Attestations 2 Medical Necessity Statement*: Disposition as per the primary Coding Level of Care Code 64121 Diagnoses Bradycardia R00.1 Atrial fibrillation with rapid ventricular response I48.91 Atherosclerosis of [place] coronary artery of [place] heart without angina pectoris I25.10 Coronary Disease-Associated Artery/Lesion type: [place] artery Mixed hyperlipidemia E78.2 Hyperlipidemia type: mixed hyperlipidemia Peripheral arterial disease I73.9
[2023-11-25] MEDS: heparin drip 25,000 UNIT/500 ML PREMIX 17.3099999999999987 UNIT IV (21:30)
--- NOTE | 2023-11-25 21:44 | ECG_ITS ---
[facility] Test Date: 2023-11-25 Pat Name: Shanna Lang Department: Room: [facility] Gender: Female Clinical Research Technician: : [id number] Requested By: Elyssa Vargas Order Number: [id number] Dean MD: Rodney Mendez M.D. Measurements Intervals [place] Rate: 109 P: 0 CA: 0 QRS: -56 QRSD: 159 T: 126 QT: 420 QTc: 568 Interpretive Statements ATRIAL FIBRILLATION WITH RAPID VENTRICULAR RESPONSE LEFT AXIS DEVIATION [QRS AXIS < -30] INTRAVENTRICULAR CONDUCTION DELAY [130+ ms QRS DURATION] Compared to ECG 11/24/2023 22:25:45 Left-axis deviation now present Intraventricular conduction delay now present Sinus rhythm no longer present First degree AV block no longer present T-wave abnormality no longer present Electronically Signed On 11-27-2023 15:57:28 CDT by Rodney Mendez M.D. [email or web address]
--- NOTE | 2023-11-25 21:51 | PC.NURSE ---
Dopamine paused IV in left upper arm found partially pulled out and kinked at 2130.Discontinued IV in left upper arm. Was running dopamine in IV so had to change it to the right picc. Patient had substantial elevation in blood pressure reading 195/99. Dopamine titrated down to 2.5 mcg/kg/min. Patient went into Afib with rate around 110. EKG done to confirm Afib. Dopamine paused.
[2023-11-25] MEDS: efferdent effervescent 1 EACH DENTAL (22:08)
[2023-11-26] VITALS (44 sets, daily range): BP systolic 70–157; BP diastolic 34–89; PULSE 63–79; RESP 15–27; TEMP 36.6–37.1; O2SAT 90–100
[2023-11-26 04:35] LABS: Basophils % 0.2 %; Eosinophils # 0.3 10^3/uL (0.0-0.8); Eosinophils % 1.9 %; Hematocrit 24.6 % (36-47); Lymphocytes # 0.8 10^3/uL (0.8-4.8); Lymphocytes % 6.2 %; Mean Corpuscular HGB Conc 30.9 g/dL (30-55); Mean Corpuscular Hemoglobin 32.1 pg (27-33); Mean Corpuscular Volume 103.8 fl (85-98); Monocytes # 0.7 10^3/uL (0.2-0.9); Monocytes % 5.3 %; Nucleated Red Blood Cells % 0 %; Platelet Count 210 10^3/cmm (157-399); Red Blood Count 2.37 10^6/uL (3.85-5.65); White Blood Count 13.38 10^3/uL (3.29-11.43)
[2023-11-26 04:55] LABS: Alanine Aminotransferase 15 U/L (0-33); Albumin Level 2.6 g/dL (3.5-5.2); Alkaline Phosphatase 114 U/L (35-105); Anion Gap 12.1 (5-19); Aspartate Amino Transferase 14 U/L (0-32); Blood Urea Nitrogen 20 mg/dL (8-23); Carbon Dioxide 27 mmol/L (22-29); Chloride 103 mmol/L (98-107); Creatinine Clr Calc Pharmacy 23.5537; Globulin 2.6 g/dL (1.3-4.6); Glucose 100 mg/dL (65-115); Osmolality Calculated 291 mOsm/kg (285-295); Phosphorus 2.7 mg/dL (2.5-4.5); Potassium 3.1 mmol/L (3.5-5.1); Sodium 139 mmol/L (136-145); Total Bilirubin 0.3 mg/dL (0.15-1.2); Total Protein 5.2 g/dL (6.6-8.7)
[2023-11-26 05:09] LABS: Calcium 5.7 mg/dL (8.5-10.5); Partial Thromboplastin Time 192.3 SECONDS (23.9-36.7)
[2023-11-26] MEDS: meropenem 1,000 MG in sodium chloride 0.9% (plus) 50 ML 100 MG IV ×2 (05:29→18:01)
[2023-11-26] MEDS: calcium carbonate 500 mg Chew Tablet 1000 MG PO ×2 (05:30→17:59)
[2023-11-26] MEDS: cholecalciferol (vitamin D3) 1,000 unit Tablet 2000 UNIT PO (08:40)
[2023-11-26] MEDS: folic acid 1 mg Tablet PO ×3 (08:40→20:29)
[2023-11-26] MEDS: atorvastatin 40 mg Tablet PO (08:40)
[2023-11-26] MEDS: zinc gluconate 50 mg Tablet PO (08:40)
[2023-11-26] MEDS: aspirin 81 mg EC Tablet PO (08:40)
[2023-11-26] MEDS: gabapentin 300 mg Capsule PO ×2 (08:40→18:01)
[2023-11-26] MEDS: levothyroxine 100 mcg Tablet PO (08:41)
[2023-11-26] MEDS: DOPamine drip 400 MG/250 ML PREMIX 4.67999999999999972 MG IV (08:42)
[2023-11-26] MEDS: sodium chloride 0.9% 1,000 ML 100 ML IV (08:42)
[2023-11-26] MEDS: acetaminophen 325 mg Tablet 650 MG PO ×2 (08:43→18:00)
[2023-11-26] MEDS: ofloxacin 0.3% Op Soln 5 mL Btl 1 DROP EYE-BOTH ×4 (08:58→20:29)
[2023-11-26] MEDS: calcium gluconate 0.1 gm/mL 10% SDV 10mL 1 GM IVP (09:55)
--- NOTE | 2023-11-26 12:00 | P.PN_ITS ---
Subjective 2 Subjective: The patient's heart rate has improved. She is currently in sinus rhythm with a heart rate of 72/min. She was found to be anemic with a hemoglobin around 7. She is also hypoalbuminemic and hypocalcemic. No chest pain or chest tightness. No shortness of breath. Blood pressure has been fairly stable today. Patient is on a dopamine drip at 2 mics per KG per minute. Medications: Medication Review Details: Current Medications Acetaminophen (Acetaminophen 325 Mg Tablet) 650 mg PO Q6H PRN PRN Reason: Mild/Mod Pain Or Temp >/= 101 Last Admin: 11/26/23 08:43 Dose: 650 mg Aspirin (Aspirin 81 Mg Ec Tablet) 81 mg PO DAILY [facility] Last Admin: 11/26/23 08:40 Dose: 81 mg Atorvastatin Calcium (Atorvastatin 40 Mg Tablet) 40 mg PO DAILY [facility] Last Admin: 11/26/23 08:40 Dose: 40 mg Calcium Carbonate (Calcium Carbonate 500 Mg Chew Tablet) 1,000 mg PO Q12H [facility] Last Admin: 11/26/23 05:30 Dose: 1,000 mg Denture Adhesive (Efferdent Effervescent) 1 each DENTAL PRN PRN PRN Reason: soak dentures Last Admin: 11/25/23 22:08 Dose: 1 each Folic Acid (Folic Acid 1 Mg Tablet) 1 mg PO TID [facility] Last Admin: 11/26/23 08:40 Dose: 1 mg Gabapentin (Gabapentin 300 Mg Capsule) 300 mg PO BID [facility] Last Admin: 11/26/23 08:40 Dose: 300 mg Gabapentin (Gabapentin 100 Mg Capsule) 200 mg PO 1400 [facility] Last Admin: 11/25/23 14:51 Dose: 200 mg Heparin Sodium (Porcine) (Heparin 5,000 Unit/Ml Inj 1 Ml) 0 unit IV PRN PRN; Protocol PRN Reason: Heparin weight-base protocol Dextrose (D10w) 250 mls @ 1,000 mls/hr IV PRN PRN PRN Reason: HYPOGLYCEMIA Dopamine HCl/Dextrose (Intropin Drip) 400 mg in 250 mls @ 11.694 mls/hr IV CONT [facility]; Protocol Last Admin: 11/26/23 08:42 Dose: 2 mcg/kg/min, 4.68 mls/hr Heparin Sodium/Sodium Chloride (Heparin Drip) 25,000 unit in 500 mls @ 0 mls/hr IV .Q0M [facility]; Protocol Last Titration: 11/26/23 05:24 Dose: 0 unit/kg/hr, 0 mls/hr Meropenem 1,000 mg/ Sodium (Chloride) 50 mls @ 100 mls/hr IV Q12H [facility]; Protocol Last Titration: 11/26/23 06:45 Dose: 0 mls/hr Levothyroxine Sodium (Levothyroxine 100 Mcg Tablet) 100 mcg PO DAILY [facility] Last Admin: 11/26/23 08:41 Dose: 100 mcg Ofloxacin (Ofloxacin 0.3% Op Soln 5 Ml Btl) 1 drop EYE-BOTH QID [facility] Last Admin: 11/26/23 08:58 Dose: 1 drop Ondansetron HCl (Ondansetron 2 Mg/Ml Sdv 2 Ml) 4 mg IVP Q6H PRN PRN Reason: NAUSEA AND VOMITING Last Admin: 11/24/23 17:52 Dose: 4 mg Oxycodone HCl (Oxycodone 5 Mg Ir Tab/Cap) 2.5 mg PO Q8H PRN PRN Reason: MODERATE TO SEVERE PAIN Pantoprazole Sodium (Pantoprazole 40 Mg Sdv) 40 mg IVP Q24H [facility] Last Admin: 11/25/23 18:12 Dose: 40 mg Vitamin D (Cholecalciferol (Vitamin D3) 1,000 Unit Tablet) 2,000 unit PO DAILY [facility] Last Admin: 11/26/23 08:40 Dose: 2,000 unit Zinc Gluconate (Zinc Gluconate 50 Mg Tablet) 50 mg PO DAILY [facility] Last Admin: 11/26/23 08:40 Dose: 50 mg Vitals/I&O/Wt Last Vital Signs Temp 98.3 F 11/26/23 04:00 Pulse 68 11/26/23 06:00 Resp 15 11/26/23 06:00 BP 111/63 11/26/23 06:00 Pulse Ox 100 11/26/23 06:00 O2 Del Method Room Air 11/26/23 06:00 O2 Flow Rate 1 11/25/23 18:30 11/25/23 11/26/23 11/26/23 22:59 06:59 14:59 Intake Total 1274.106 / 2167.343 1177.343 / 3344.686 163.633 / 163.633 Output Total 925 / 925 500 / 1425 Balance 349.106 / 1242.343 677.343 / 1919.686 163.633 / 163.633 Weight last 48 hrs Weight 141 lb 14.4 oz Weight 136 lb 5 oz Weight 137 lb 8 oz Weight 130 lb Physical Exam 2 Narrative: GENERAL: The patient is alert and oriented times three. Not in any acute distress. Somewhat lethargic HEENT: No significant pallor, icterus or lymphadenopathy.Oral cavity: There are no mucous membrane lesions. NECK: Trachea appears to be central. No masses noted. No JVD or thyromegaly appreciated. RESPIRATORY: Chest is symmetrical. No intercostals muscle retraction or any accessory muscle activation. There is no chest wall tenderness. Breath sounds are heard bilaterally. No rales or rhonchi heard. No evidence of any consolidation. BREASTS: Deferred. HEART: The heart sounds are normal. No S3 or S4. Short systolic murmur in the lower sternal border. No diastolic murmurs.. No pericardial rub ABDOMEN: No vessel pulsations or distention. No tenderness. No organomegaly appreciated. Bowel sounds are normally heard. : Deferred. RECTAL: Deferred. LYMPHATIC: No lymphadenopathy noted in the neck. EXTREMITIES: No edema or cyanosis. No clubbing. MUSCULOSKELETAL: No acute joint deformities or swelling SKIN: There are no significant rashes or ecchymosis NEUROPSYCHIATRIC: The patient is alert and oriented x3. Somewhat lethargic. Urinary Catheter Management: Alanis: Cath Placed During This Visit: yes Reason for Continuing Indwelling Catheter: Accurate Measurement of Urinary Output in Critically Ill Patients Urinary Catheter Date of Insertion: 11/24/23 Urinary Catheter Time of Insertion: 15:43 Data 11/26/23 04:19 11/26/23 04:19 Other Labs: Laboratory Last Values WBC 13.38 10^3/uL (3.29-11.43) H 11/26/23 04:19 RBC 2.37 10^6/uL (3.85-5.65) L 11/26/23 04:19 Hgb 7.60 g/dL (11.27-16.99) L 11/26/23 04:19 Hct 24.6 % (36-47) L 11/26/23 04:19 MCV 103.8 fl (85-98) H 11/26/23 04:19 MCH 32.1 pg (27-33) 11/26/23 04:19 MCHC 30.9 g/dL (30-55) 11/26/23 04:19 RDW 16.0 % (12.1-15.1) H 11/26/23 04:19 Plt Count 210 10^3/cmm (157-399) 11/26/23 04:19 MPV 10.0 fL (7.4-10.4) 11/26/23 04:19 Neut % (Auto) 86.0 % 11/26/23 04:19 Lymph % (Auto) 6.2 % 11/26/23 04:19 [place] % (Auto) 5.3 % 11/26/23 04:19 Eos % (Auto) 1.9 % 11/26/23 04:19 Baso % (Auto) 0.2 % 11/26/23 04:19 Neut # (Auto) 11.50 10^3/uL (1.8-7.7) H 11/26/23 04:19 Lymph # (Auto) 0.8 10^3/uL (0.8-4.8) 11/26/23 04:19 [place] # (Auto) 0.7 10^3/uL (0.2-0.9) 11/26/23 04:19 Eos # (Auto) 0.3 10^3/uL (0.0-0.8) 11/26/23 04:19 Baso # (Auto) 0.0 10^3/uL (0.0-0.1) 11/26/23 04:19 Nucleated RBC % (auto) 0 % 11/26/23 04:19 Nucleated RBCs # 0.0 /100WBC 11/26/23 04:19 APTT 192.3 SECONDS (23.9-36.7) H* 11/26/23 04:19 Sodium 139 mmol/L (136-145) 11/26/23 04:19 Potassium 3.1 mmol/L (3.5-5.1) L 11/26/23 04:19 Chloride 103 mmol/L (98-107) 11/26/23 04:19 Carbon Dioxide 27 mmol/L (22-29) 11/26/23 04:19 Anion Gap 12.1 (5-19) 11/26/23 04:19 BUN 20 mg/dL (8-23) 11/26/23 04:19 Creatinine 1.5 mg/dL (0.5-0.9) H 11/26/23 04:19 GFR Calculation Not Reportable 11/26/23 04:19 Glucose 100 mg/dL (65-115) 11/26/23 04:19 POC Glucose 131 mg/dL (70-110) H 11/24/23 21:01 Estimat Average Glucose 91 11/24/23 18:40 Hemoglobin A1c 4.8 % (4.0-6.0) 11/24/23 18:40 Calculated Osmolality 291 mOsm/kg (285-295) 11/26/23 04:19 Lactic Acid 1.4 mmol/L (0.5-2.2) 11/24/23 14:56 Calcium 5.7 mg/dL (8.5-10.5) L* 11/26/23 04:19 Ionized Calcium [place] 0.7 mmol/L (1.1-1.4) L* 11/25/23 15:04 Phosphorus 2.7 mg/dL (2.5-4.5) 11/26/23 04:19 Magnesium 2.0 mg/dL (1.7-2.3) 11/26/23 04:19 Total Bilirubin 0.3 mg/dL (0.15-1.2) 11/26/23 04:19 AST 14 U/L (0-32) 11/26/23 04:19 ALT 15 U/L (0-33) 11/26/23 04:19 Alkaline Phosphatase 114 U/L (35-105) H 11/26/23 04:19 Troponin T Baseline 23 ng/L (0-10) H 11/24/23 15:28 Troponin T 120 Minute 23.38 ng/L (0-10) H 11/24/23 18:40 Delta Troponin T 0.38 ABS# (0-10) 11/24/23 18:40 Troponin T Hi Sens 6Hr 23.86 ng/L (0-10) H 11/24/23 21:01 Troponin T Hi Sens 6Hr Delta 0.86 ng/L (0-12) 11/24/23 21:01 C-Reactive Protein 19.0 mg/L (0.0-4.9) H 11/24/23 18:40 NT-Pro-B Natriuret Pep 5167 pg/mL (0-450) H 11/24/23 18:40 Total Protein 5.2 g/dL (6.6-8.7) L 11/26/23 04:19 Albumin 2.6 g/dL (3.5-5.2) L 11/26/23 04:19 Globulin 2.6 g/dL (1.3-4.6) 11/26/23 04:19 Triglycerides 98 mg/dL (0-150) 11/24/23 18:40 Cholesterol 104 mg/dL (0-200) 11/24/23 18:40 LDL Cholesterol, Calc 37 mg/dL (50-129) L 11/24/23 18:40 HDL Cholesterol 47 mg/dL (60-100) L 11/24/23 18:40 LDL/HDL Ratio 0.79 RATIO (0.00-3.22) 11/24/23 18:40 Cholesterol/HDL Ratio 2.21 mg/dL (0.0-4.40) 11/24/23 18:40 Lipase 20 U/L (13-60) 11/24/23 15:28 25-OH Vitamin D Total 20 ng/mL (30-100) L 11/25/23 05:49 Procalcitonin 0.99 ng/mL (0-0.5) H 11/24/23 18:40 TSH 1.01 uIU/mL (0.27-4.20) 11/24/23 15:28 PTH Intact 715.9 pg/mL (15-65) H 11/25/23 04:45 Calcium (PTH Intact) 6.1 mg/dL (8.5-10.5) L 11/25/23 04:45 Urine Color Yellow (Yellow) 11/24/23 15:40 Urine Appearance Clear (CLEAR) 11/24/23 15:40 Urine pH 5 (5-7) 11/24/23 15:40 Ur Specific [place] 1.015 (1.005-1.030) 11/24/23 15:40 Urine Protein 1+ (Negative) H 11/24/23 15:40 Urine Glucose (UA) Norm (Normal) 11/24/23 15:40 Urine Ketones 1+ (Negative) H 11/24/23 15:40 Urine Blood Neg (Negative) 11/24/23 15:40 Urine Nitrate Negative (Negative) 11/24/23 15:40 Urine Bilirubin 1+ (Negative) H 11/24/23 15:40 Urine Urobilinogen Norm mg/dL (Negative) 11/24/23 15:40 Ur Leukocyte Esterase Trace (Negative) H 11/24/23 15:40 Urine RBC 0-4 /hpf (0-2) H 11/24/23 15:40 Urine WBC 10-15 /hpf (0-5) H 11/24/23 15:40 Ur Squamous Epith Cells 0-4 /hpf (0-5) H 11/24/23 15:40 Amorphous Sediment Not Reportable 11/24/23 15:40 Urine Bacteria Trace /hpf (NONE) 11/24/23 15:40 Hyaline Casts 0-4 /lpf H 11/24/23 15:40 Adenovirus (PCR) Not detected (NOT DETECT) 11/25/23 09:55 C. pneumoniae DNA (PCR) Not detected (NOT DETECT) 11/25/23 09:55 C. difficile (PCR) Negative (Negative) 11/26/23 11:15 Coronavirus 229E (PCR) Not detected (NOT DETECT) 11/25/23 09:55 Human Metapneumovir PCR Not detected (NOT DETECT) 11/25/23 09:55 Influenza A (H1) PCR Not detected (NOT DETECT) 11/25/23 09:55 Influ A (H1/09) PCR Not detected (NOT DETECT) 11/25/23 09:55 Influenza A (H3) PCR Not detected (NOT DETECT) 11/25/23 09:55 Influenza Type A (PCR) Not detected (NOT DETECT) 11/25/23 09:55 Influenza Type B (PCR) Not detected (NOT DETECT) 11/25/23 09:55 M. pneumoniae (PCR) Not detected (NOT DETECT) 11/25/23 09:55 Parainfluenza 1 (PCR) Not detected (NOT DETECT) 11/25/23 09:55 Parainfluenza 2 (PCR) Not detected (NOT DETECT) 11/25/23 09:55 Parainfluenza 3 (PCR) Not detected (NOT DETECT) 11/25/23 09:55 Parainfluenza 4 (PCR) Not detected (NOT DETECT) 11/25/23 09:55 RSV Type A (PCR) Not detected (NOT DETECT) 11/25/23 09:55 RSV Type B (PCR) Not detected (NOT DETECT) 11/25/23 09:55 Entero/Rhino (PCR) Not detected (NOT DETECT) 11/25/23 09:55 SARS-CoV-2 (PCR) Not detected (NOT DETECT) 11/25/23 09:55 Micro: Microbiology 11/24/23 19:00 Blood Culture - Preliminary Blood NEGATIVE TO DATE 11/24/23 18:40 Blood Culture - Preliminary Blood NEGATIVE TO DATE A&P Assessment and plan (1) Bradycardia: Currently has improved. Possibly multifactorial. Amiodarone, hypoparathyroidism, anemia, etc. are contributing factors. The dopamine may be tapered off. (2) Atrial fibrillation with rapid ventricular response: Patient is on long-term oral anticoagulation. This may need to be discontinued because of the drop in the hemoglobin. Consider restarting her on a smaller dose of amiodarone or beta-arnoldo, after correcting the anemia, addressing the hypotension, hypoalbuminemia and hypoparathyroidism (3) Atherosclerosis of coronary artery of [place] heart without angina pectoris: Her Myocardial perfusion imaging in April of last year was unremarkable. May continue on the current management. Qualifiers: Coronary Disease-Associated Artery/Lesion type: [place] artery Qualified Code(s): I25.10 - Atherosclerotic heart disease of [place] coronary artery without angina pectoris (4) Hyperlipidemia: May continue on the current management. Qualifiers: Hyperlipidemia type: mixed hyperlipidemia Qualified Code(s): E78.2 - Mixed hyperlipidemia (5) Peripheral arterial disease: Currently asymptomatic and stable. Continue on the current management. Plan If the patient continues to remain stable, may be transferred out of the ICU. Consider an event monitor, at the time of discharge Attestations 2 Medical Necessity Statement*: Defer to the primary Coding Level of Care Code 36884 Diagnoses Bradycardia R00.1 Atrial fibrillation with rapid ventricular response I48.91 Atherosclerosis of [place] coronary artery of [place] heart without angina pectoris I25.10 Coronary Disease-Associated Artery/Lesion type: [place] artery Mixed hyperlipidemia E78.2 Hyperlipidemia type: mixed hyperlipidemia Peripheral arterial disease I73.9
[2023-11-26 12:13] LABS: C.Diff PCR (Lab) NEGATIVE (Negative)
--- NOTE | 2023-11-26 13:36 | PC.NURSE ---
Orthostatic hypotension :Pt up to hair today with PT. Hypotension noted. 80/56. It self corrected after she sat for a few minutes her BP recovery. After lunch she wanted to try the BSC. We assisted her to it then more hypotension : 70/45. After she finished she was assisted to bed supine at 10 degree HOB. Next SBP 131.
--- NOTE | 2023-11-26 14:17 | P.PN_ITS ---
Subjective 2 Subjective: alert, making more urine , + diarrhea Vitals/I&O/Wt Last Vital Signs Temp 98.3 F 11/26/23 04:00 Pulse 68 11/26/23 12:00 Resp 15 11/26/23 12:00 BP 111/63 11/26/23 12:00 Pulse Ox 100 11/26/23 06:00 O2 Del Method Room Air 11/26/23 06:00 O2 Flow Rate 1 11/25/23 18:30 11/25/23 11/26/23 11/26/23 22:59 06:59 14:59 Intake Total 1274.106 / 2167.343 1177.343 / 3344.686 1066.565 / 1066.565 Output Total 925 / 925 500 / 1425 Balance 349.106 / 1242.343 677.343 / 4936.362 4332.565 / 1066.565 Weight last 48 hrs Weight 64.365 kg Weight 61.83 kg Weight 62.369 kg Physical Exam 2 Narrative: alert, states she is feeling better Urinary Catheter Management: Alanis: Cath Placed During This Visit: yes Reason for Continuing Indwelling Catheter: Accurate Measurement of Urinary Output in Critically Ill Patients Urinary Catheter Date of Insertion: 11/24/23 Urinary Catheter Time of Insertion: 15:43 Data 11/26/23 04:19 11/26/23 14:30 Other Labs: ionized Ca 0.9, phos 2.7, Mg 2 Micro: Microbiology 11/24/23 19:00 Blood Culture - Preliminary Blood NEGATIVE TO DATE 11/24/23 18:40 Blood Culture - Preliminary Blood NEGATIVE TO DATE Other data: seen via telemedicine with assistance of RN at bedside A&P Assessment and plan (1) Acute kidney injury: Plan 1. Acute kidney injury: urine output and serum creatinine improving 2. Chronic kidney disease stage 3: Baseline creatinine in the 1.2 mg/d 3. Hypokalemia:confirmed x 2, replace po 4. Hypocalcemia: on oral calcium and vitamin D 5. Metabolic acidosis: resolved 6. Elevated PTH: primary v secondary hyperparathyroidism, continue vitamin D Attestations 2 Medical Necessity Statement*: remains in ICU Time Spent in Patient Care: 16 - 35 minutes Coding Level of Care Code Acute Code for [facility] Fwd Diagnoses Acute kidney injury N17.9
[2023-11-26] MEDS: gabapentin 100 mg Capsule 200 MG PO (14:26)
[2023-11-26 15:03] LABS: Anion Gap 12.1 (5-19); Blood Urea Nitrogen 17 mg/dL (8-23); Calcium 6.2 mg/dL (8.5-10.5); Carbon Dioxide 26 mmol/L (22-29); Chloride 103 mmol/L (98-107); Creatinine Clr Calc Pharmacy 27.6562; Glucose 153 mg/dL (65-115); Osmolality Calculated 291 mOsm/kg (285-295); Potassium 3.1 mmol/L (3.5-5.1); Sodium 138 mmol/L (136-145)
--- NOTE | 2023-11-26 15:31 | PC.SOCIAL ---
Pg 2 IMM. Explained to pt & friend, Pg 2 IMM. No questions voiced. Provided pt a copy. Initialed, dated, & timed a copy & placed in chart.
--- NOTE | 2023-11-26 16:10 | P.PN_ITS ---
Subjective 2 Subjective: Patient was seen this morning, family friend at bedside, she is alert oriented x 3, following all commands, remains on the dopamine drip, heart rates in the 70s, attempts yesterday to wean her off dopamine resulted in hypotension, she denies any lightheadedness, no dizziness, no nausea, no vomiting, no abdominal pain, discussed plans on getting her up out of bed into a chair, weaning her off dopamine, she is agreeable, patient was seen later in the afternoon, sitting up in a chair, heart rates in the 70s , was found to be orthostatic, moved back into bed, spoke to patient, spoke to nursing staff, spoke to family friend, spoke to cardiology, Vitals/I&O/Wt Last Vital Signs Temp 98.1 F 11/26/23 14:00 Pulse 68 11/26/23 14:30 Resp 21 H 11/26/23 14:30 BP 106/40 11/26/23 14:30 Pulse Ox 97 11/26/23 14:30 O2 Del Method Room Air 11/26/23 14:30 O2 Flow Rate 1 11/26/23 08:30 11/26/23 11/26/23 11/26/23 06:59 14:59 22:59 Intake Total 1177.343 / 3344.686 1066.565 / 1066.565 Output Total 500 / 1425 Balance 677.343 / 6764.668 4718.565 / 1066.565 Weight last 48 hrs Weight 64.365 kg Weight 61.83 kg Weight 62.369 kg Physical Exam 2 Const: COMMON NORMALS: no acute distress and patient oriented x3 Resp: COMMON NORMALS: normal respiratory effort, No retractions, No use of accessory muscles and clear to auscultation bilaterally AUSCULTATION: clear to auscultation bilaterally Cardio: COMMON NORMALS: regular rate, regular rhythm, S1 normal heart sound present and S2 normal heart sound present RATE: regular rate RHYTHM: r egular rhythm HEART SOUNDS: S1 normal heart sound present and S2 normal heart sound present GI: COMMON NORMALS: Normal to inspection, nondistended, normoactive bowel sounds present and non-tender Extremity: COMMON NORMALS: no pedal edema Neuro: COMMON NORMALS: patient oriented x3 Psych: COMMON NORMALS: mental status grossly normal Urinary Catheter Management: Alanis: Cath Placed During This Visit: yes Reason for Continuing Indwelling Catheter: Accurate Measurement of Urinary Output in Critically Ill Patients Urinary Catheter Date of Insertion: 11/24/23 Urinary Catheter Time of Insertion: 15:43 Data 11/26/23 04:19 11/26/23 14:30 Micro: Microbiology 11/24/23 19:00 Blood Culture - Preliminary Blood NEGATIVE TO DATE 11/24/23 18:40 Blood Culture - Preliminary Blood NEGATIVE TO DATE A&P Assessment and plan (1) Bradycardia, severe sinus: (2) Hypertension: Qualifiers: Hypertension type: primary hypertension Qualified Code(s): I10 - Essential (primary) hypertension (3) CAD (coronary artery disease): (4) Afib: Qualifiers: Atrial fibrillation type: longstanding persistent Qualified Code(s): I 48.11 - Longstanding persistent atrial fibrillation (5) Tachy-sonali syndrome: (6) PVD (peripheral vascular disease): (7) Hyperlipidemia: Qualifiers: Hyperlipidemia type: mixed hyperlipidemia Qualified Code(s): E78.2 - Mixed hyperlipidemia (8) Hypothyroidism: (9) Acute kidney injury: (10) Hyperkalemia: (11) Hyponatremia: (12) Goals of care, counseling/discussion: (13) Leukocytosis: (14) Hypocalcemia: (15) Acute anemia: (16) Hypotension: Plan Bradycardia -Possibly secondary to amiodarone, ? Possibly secondary to sick sinus syndrome, tachybradycardia syndrome ? Had extensive discussion with patient about pacemaker placement, she is agreeable to pacemaker placement if it is absolutely required ? Plan, ?on dopamine, will attempt to wean off, does develop hypotension ? Will watch her in the ICU closely, ? Cardiology consulted, ? Hold Pradaxa if there is any plans on placing pacemaker, was on a heparin drip, which has been held due to anemia ? Monitor blood pressures and heart rates closely Hypotension ? Obtain lactic acid - requiring dopamine Acute anemia ? Hold heparin drip ?monitor hemoglobin, transfuse if less than 7 Hyperkalemia, resolved ? Has received insulin, D10, Kayexalate bicarb in the emergency room Hypocalcemia ?Has evidence of hypoparathyroidism, vitamin D deficiency, ? Hypocalcemia this morning, with low ionized calcium, will give 1 g of IV calcium gluconate ? Start supplementation Acute kidney injury, resolving ? Creatinine 1.3 ? Renal ultrasound, ? Consult nephrology -ivf Metabolic acidosis, resolving ? Lactic acid within normal limits, -Next it could be from bradycardia, hypotension ? ER a started sodium bicarb Hyponatremia, IV fluids UTI, currently on meropenem Leukocytosis of 29,000,resolving, now 13.38, follow blood cultures, urine cultures, chest x-ray no focal infiltrates respiratory viral panel, continue to monitor closely Goals of care discussion, patient tells me that she wants to remain a full code, until her grandson from [place] can come and see her, agreeable for pacemaker placement if required SCDs for DVT prophylaxis Patient was seen this morning, family friend at bedside, she is alert oriented x 3, following all commands, remains on the dopamine drip, heart rates in the 70s, attempts yesterday to wean her off dopamine resulted in hypotension, she denies any lightheadedness, no dizziness, no nausea, no vomiting, no abdominal pain, discussed plans on getting her up out of bed into a chair, weaning her off dopamine, she is agreeable, patient was seen later in the afternoon, sitting up in a chair, heart rates in the 70s , was found to be orthostatic, moved back into bed, spoke to patient, spoke to nursing staff, spoke to family friend, spoke to cardiology, Attestations 2 Medical Necessity Statement*: Patient requires hospitalization due to bradycardia, hypotension, acute anemia, hypocalcemia, acute renal failure, UTI, leukocytosis, Diagnoses Bradycardia, severe sinus R00.1 Primary hypertension I10 Hypertension type: primary hypertension CAD (coronary artery disease) I25.10 Longstanding persistent atrial fibrillation I48.11 Atrial fibrillation type: longstanding persistent Tachy-sonali syndrome I49.5 PVD (peripheral vascular disease) I73.9 Mixed hyperlipidemia E78.2 Hyperlipidemia type: mixed hyperlipidemia Hypothyroidism E03.9 Acute kidney injury N17.9 Hyperkalemia E87.5 Hyponatremia E87.1 Goals of care, counseling/discussion Z71.89 Leukocytosis D72.829 Hypocalcemia E83.51 Acute anemia D64.9 Hypotension I95.9
[2023-11-26 16:56] LABS: Ionized Calcium 0.9 mmol/L (1.1-1.4)
[2023-11-26 17:54] LABS: Lactic Sepsis W/Reflex 0.8 mmol/L (0.5-2.2)
[2023-11-26] MEDS: pantoprazole 40 mg SDV IVP (17:59)
[2023-11-26] MEDS: potassium chloride oral liq 20 mEq/15 mL UDC 40 MEQ PO (18:00)
--- NOTE | 2023-11-26 18:23 | PC.NURSE ---
Shift summary: Pt more alert today. Her color is pinker. She ws will to work with PT and OT. She was up to chair today. Heparin remians held as per Dr Wallace. IV fluids stopped. She tolerated weaning off Dopamine this afternoon. Dopamine was a mcg/kg/min during the PT/OT , during the orthostatic hyotension. She has not gotten out of bed since Dopamine off. She does require a walker and assistance. Her back is twisted from scoliosis. She has complained of her shoulders being stiff, she holds her arms to her sides not wanting to use/move her shoulders. She has been encouraged by this nurse, PT, OT and her visitors to roll her shoulders and to do arm exercises to relieve the stiffness. She is very reluctant to do so. She is alos troubles with diarrhea today, the incontinent episodes embarrass her. She is C-diff negative. Imodium was requested and orders. Awaiting pharmacy verification. Urine out out of 450ml. She had at least 10 bouts of incontinence today, small amounts each tome.
[2023-11-26] MEDS: loperamide 2 mg Capsule 4 MG PO (18:54)
[2023-11-26 19:25] LABS: Basophils # 0.1 10^3/uL (0.0-0.1); Basophils % 0.4 %; Eosinophils # 0.3 10^3/uL (0.0-0.8); Eosinophils % 2.1 %; Lymphocytes # 0.6 10^3/uL (0.8-4.8); Lymphocytes % 4.5 %; Mean Corpuscular HGB Conc 31.2 g/dL (30-55); Mean Corpuscular Hemoglobin 32.5 pg (27-33); Mean Corpuscular Volume 104.2 fl (85-98); Mean Platelet Volume 9.9 fL (7.4-10.4); Monocytes # 0.8 10^3/uL (0.2-0.9); Monocytes % 5.7 %; Neutrophils # 11.67 10^3/uL (1.8-7.7); Neutrophils % 86.6 %; Nucleated Red Blood Cells % 0 %; Platelet Count 212 10^3/cmm (157-399); Red Cell Distribution Width 15.9 % (12.1-15.1); White Blood Count 13.48 10^3/uL (3.29-11.43)
[2023-11-26] MEDS: oxyCODONE 5 mg IR Tab/Cap 2.5 MG PO (20:34)
[2023-11-27] VITALS (51 sets, daily range): BP systolic 85–165; BP diastolic 36–89; PULSE 46–77; RESP 13–28; TEMP 36.6–37.1; O2SAT 90–98
[2023-11-27] MEDS: ondansetron 2 mg/ML SDV 2 mL 4 MG IVP (04:47)
[2023-11-27 05:17] LABS: Basophils # 0.1 10^3/uL (0.0-0.1); Basophils % 0.6 %; Eosinophils # 0.4 10^3/uL (0.0-0.8); Hematocrit 25.6 % (36-47); Lymphocytes # 1.1 10^3/uL (0.8-4.8); Mean Corpuscular HGB Conc 30.5 g/dL (30-55); Mean Corpuscular Hemoglobin 32.1 pg (27-33); Mean Corpuscular Volume 105.3 fl (85-98); Mean Platelet Volume 10.1 fL (7.4-10.4); Monocytes # 0.6 10^3/uL (0.2-0.9); Monocytes % 5.8 %; Neutrophils # 8.52 10^3/uL (1.8-7.7); Neutrophils % 79.1 %; Nucleated Red Blood Cells % 0 %; Platelet Count 216 10^3/cmm (157-399); Red Blood Count 2.43 10^6/uL (3.85-5.65); Red Cell Distribution Width 15.8 % (12.1-15.1); White Blood Count 10.78 10^3/uL (3.29-11.43)
[2023-11-27 05:38] LABS: Alanine Aminotransferase 14 U/L (0-33); Albumin Level 2.7 g/dL (3.5-5.2); Alkaline Phosphatase 117 U/L (35-105); Anion Gap 11.8 (5-19); Aspartate Amino Transferase 13 U/L (0-32); Blood Urea Nitrogen 19 mg/dL (8-23); Calcium 6.1 mg/dL (8.5-10.5); Carbon Dioxide 26 mmol/L (22-29); Chloride 108 mmol/L (98-107); Creatinine Clr Calc Pharmacy 29.9608; Globulin 2.5 g/dL (1.3-4.6); Glucose 84 mg/dL (65-115); Magnesium 2.1 mg/dL (1.7-2.3); Osmolality Calculated 295 mOsm/kg (285-295); Phosphorus 1.9 mg/dL (2.5-4.5); Potassium 3.8 mmol/L (3.5-5.1); Sodium 142 mmol/L (136-145); Total Bilirubin 0.4 mg/dL (0.15-1.2); Total Protein 5.2 g/dL (6.6-8.7)
[2023-11-27] MEDS: calcium carbonate 500 mg Chew Tablet 1000 MG PO ×3 (06:12→17:05)
[2023-11-27] MEDS: meropenem 1,000 MG in sodium chloride 0.9% (plus) 50 ML 100 MG IV (06:16)
--- NOTE | 2023-11-27 07:52 | PM.PN ---
Subjective Subjective: Patient is having bradycardia. Not on any rate controlling agents. Vitals/I&O/Wt Last Vital Signs Temp 98.2 F 11/27/23 06:00 Pulse 66 11/27/23 06:00 Resp 15 11/27/23 06:00 BP 135/52 11/27/23 06:00 Pulse Ox 95 11/27/23 06:00 O2 Del Method Room Air 11/27/23 06:00 O2 Flow Rate 1 11/26/23 08:30 11/26/23 11/27/23 11/27/23 22:59 06:59 14:59 Intake Total 640 / 1707.501 22.074 / 1729.575 Output Total 625 / 625 Balance 15 / 1082.501 22.074 / 1104.575 Weight last 48 hrs Weight 141 lb Weight 141 lb 14.4 oz Physical Exam Narrative: GENERAL: Patient is alert, awake and oriented x3. [] NECK: No jugular vein distension. [] HEENT: No cyanosis. No icterus. No pallor. [] HEART: Bradycardia LUNGS: Clear to auscultate bilaterally. [] CENTRAL NERVOUS SYSTEM: Grossly nonfocal. [] EXTREMITIES: Lower extremities with 1+ edema bilaterally Urinary Catheter Management: Alanis: Cath Placed During This Visit: yes Reason for Continuing Indwelling Catheter: Accurate Measurement of Urinary Output in Critically Ill Patients Urinary Catheter Date of Insertion: 11/24/23 Urinary Catheter Time of Insertion: 15:43 Data 11/28/23 04:49 11/28/23 04:49 A&P Assessment and plan (1) Bradycardia: (2) Atrial fibrillation with rapid ventricular response: (3) Atherosclerosis of coronary artery of [place] heart without angina pectoris: Qualifiers: Coronary Disease-Associated Artery/Lesion type: [place] artery Qualified Code(s): I25.10 - Atherosclerotic heart disease of [place] coronary artery without angina pectoris (4) Hyperlipidemia: Qualifiers: Hyperlipidemia type: mixed hyperlipidemia Qualified Code(s): E78.2 - Mixed hyperlipidemia (5) Peripheral arterial disease: Plan Patient presentation is consistent with sick sinus syndrome. He has significant bradycardia. Can start on dopamine if stays bradycardic and symptomatic We will tentatively plan for pacemaker placement early next week. Thank you for involving us with care of this patient. We will continue to follow. Please call with questions Attestations Medical Necessity Statement*: Care expected to cross 2 midnights. Coding Level of Care Code Acute Code for Chg Fwd Diagnoses Bradycardia R00.1 Atrial fibrillation with rapid ventricular response I48.91 Atherosclerosis of [place] coronary artery of [place] heart without angina pectoris I25.10 Coronary Disease-Associated Artery/Lesion type: [place] artery Mixed hyperlipidemia E78.2 Hyperlipidemia type: mixed hyperlipidemia Peripheral arterial disease I73.9
[2023-11-27] MEDS: cholecalciferol (vitamin D3) 1,000 unit Tablet 2000 UNIT PO (08:16)
[2023-11-27] MEDS: aspirin 81 mg EC Tablet PO (08:16)
[2023-11-27] MEDS: atorvastatin 40 mg Tablet PO (08:17)
[2023-11-27] MEDS: zinc gluconate 50 mg Tablet PO (08:17)
[2023-11-27] MEDS: levothyroxine 100 mcg Tablet PO (08:17)
[2023-11-27] MEDS: folic acid 1 mg Tablet PO ×3 (08:17→19:58)
[2023-11-27] MEDS: ofloxacin 0.3% Op Soln 5 mL Btl 1 DROP EYE-BOTH ×4 (08:17→19:58)
[2023-11-27] MEDS: gabapentin 300 mg Capsule PO ×2 (08:17→17:05)
--- NOTE | 2023-11-27 10:51 | PM.PN ---
Subjective Subjective: feeling better, out of bed in chair. Still has diarrhea Vitals/I&O/Wt Last Vital Signs Temp 98.7 F 11/27/23 07:30 Pulse 64 11/27/23 10:00 Resp 24 H 11/27/23 10:00 BP 121/50 11/27/23 10:00 Pulse Ox 98 11/27/23 10:00 O2 Del Method Room Air 11/27/23 10:00 O2 Flow Rate 1 11/26/23 08:30 11/26/23 11/27/23 11/27/23 22:59 06:59 14:59 Intake Total 640 / 1707.501 22.074 / 1729.575 172 / 172 Output Total 625 / 625 Balance 15 / 1082.501 22.074 / 1104.575 172 / 172 Weight last 48 hrs Weight 63.957 kg Weight 64.365 kg Physical Exam Const: OTHER: alert Urinary Catheter Management: Alanis: Cath Placed During This Visit: yes Reason for Continuing Indwelling Catheter: Accurate Measurement of Urinary Output in Critically Ill Patients Urinary Catheter Date of Insertion: 11/24/23 Urinary Catheter Time of Insertion: 15:43 Data 11/27/23 04:39 11/27/23 04:39 Other data: seen via telemedicine with assistance of RN at bedside A&P Assessment and plan (1) Acute kidney injury: Plan 1. Acute kidney injury: serum creatinine improving 2. Chronic kidney disease stage 3: Baseline creatinine in the 1.2 mg/d. renal function at baseline 3. Hypokalemia:resolved 4. Hypocalcemia:increase oral calcium, continue vitamin D 5. hypophosphateia: replace IV due to diarrhea 6. Elevated PTH: primary v secondary hyperparathyroidism, continue vitamin D, Outpatient CT evaluate for parathyroid adenoma Attestations Medical Necessity Statement*: per primary service Time Spent in Patient Care: 16 - 35 minutes Coding Level of Care Code Acute Code for [facility] Fwd Diagnoses Acute kidney injury N17.9
--- NOTE | 2023-11-27 12:00 | P.PN_ITS ---
Subjective 2 Subjective: Patient was seen this morning, overnight she was put back on dopamine due to soft blood pressures, currently remains off dopamine, she is alert oriented x 3, follows all commands reports diarrhea, denies any fevers, chills, no cough, yesterday when she got up into a chair she did become hypotensive at times, requiring her to be put back into bed, Vitals/I&O/Wt Last Vital Signs Temp 98.7 F 11/27/23 07:30 Pulse 64 11/27/23 10:00 Resp 24 H 11/27/23 10:00 BP 121/50 11/27/23 10:00 Pulse Ox 98 11/27/23 10:00 O2 Del Method Room Air 11/27/23 10:00 O2 Flow Rate 1 11/26/23 08:30 11/26/23 11/27/23 11/27/23 22:59 06:59 14:59 Intake Total 640 / 1707.501 22.074 / 1729.575 172 / 172 Output Total 625 / 625 Balance 15 / 1082.501 22.074 / 1104.575 172 / 172 Weight last 48 hrs Weight 63.957 kg Weight 64.365 kg Physical Exam 2 Const: COMMON NORMALS: no acute distress and patient oriented x3 Resp: COMMON NORMALS: normal respiratory effort, No retractions, No use of accessory muscles and clear to auscultation bilaterally AUSCULTATION: clear to auscultation bilaterally Cardio: COMMON NORMALS: regular rate, regular rhythm, S1 normal heart sound present and S2 normal heart sound present RATE: regular rate RHYTHM: r egular rhythm HEART SOUNDS: S1 normal heart sound present and S2 normal heart sound present GI: COMMON NORMALS: Normal to inspection, nondistended, normoactive bowel sounds present and non-tender Extremity: COMMON NORMALS: no pedal edema Neuro: COMMON NORMALS: patient oriented x3 Psych: COMMON NORMALS: mental status grossly normal Urinary Catheter Management: Alanis: Cath Placed During This Visit: yes Reason for Continuing Indwelling Catheter: Accurate Measurement of Urinary Output in Critically Ill Patients Urinary Catheter Date of Insertion: 11/24/23 Urinary Catheter Time of Insertion: 15:43 Data 11/27/23 04:39 11/27/23 04:39 A&P Assessment and plan (1) Bradycardia, severe sinus: (2) Hypertension: Qualifiers: Hypertension type: primary hypertension Qualified Code(s): I10 - Essential (primary) hypertension (3) CAD (coronary artery disease): (4) Afib: Qualifiers: Atrial fibrillation type: longstanding persistent Qualified Code(s): I 48.11 - Longstanding persistent atrial fibrillation (5) Tachy-sonali syndrome: (6) PVD (peripheral vascular disease): (7) Hyperlipidemia: Qualifiers: Hyperlipidemia type: mixed hyperlipidemia Qualified Code(s): E78.2 - Mixed hyperlipidemia (8) Hypothyroidism: (9) Acute kidney injury: (10) Hyperkalemia: (11) Hyponatremia: (12) Goals of care, counseling/discussion: (13) Leukocytosis: (14) Hypocalcemia: (15) Acute anemia: (16) Hypotension: Plan Bradycardia -Possibly secondary to amiodarone, ? Possibly secondary to sick sinus syndrome, tachybradycardia syndrome ? Had extensive discussion with patient about pacemaker placement, she is agreeable to pacemaker placement if it is absolutely required ? Plan, ?off dopamine, ? Will watch her in the ICU closely, ? Cardiology consulted, ? Hold Pradaxa if there is any plans on placing pacemaker, was on a heparin drip, which has been held due to anemia ? Monitor blood pressures and heart rates closely Hypotension ? Lactic acid within normal limits - requiring dopamine Acute anemia, 7.9 ? Hold heparin drip ?monitor hemoglobin, transfuse if less than 7 Hyperkalemia, resolved ? Has received insulin, D10, Kayexalate bicarb in the emergency room Hypocalcemia ?Has evidence of hypoparathyroidism, vitamin D deficiency, ? Hypocalcemia this morning, with low ionized calcium, -Status post 1 g of IV calcium gluconate ? Start supplementation Acute kidney injury, resolving ? Creatinine 1.3 ? Renal ultrasound, ? Consult nephrology -ivf Metabolic acidosis, resolving ? Lactic acid within normal limits, -Next it could be from bradycardia, hypotension ? ER a started sodium bicarb Hyponatremia, IV fluids UTI, currently on meropenem, will de-escalate to cefdinir Leukocytosis of 29,000,resolving, now 13.38, follow blood cultures, urine cultures, chest x-ray no focal infiltrates respiratory viral panel, continue to monitor closely Goals of care discussion, patient tells me that she wants to remain a full code, until her grandson from [place] can come and see her, agreeable for pacemaker placement if required SCDs for DVT prophylaxis Plan for today up out of bed, PT OT, monitor heart rates, monitor blood pressures, stop meropenem and de-escalate to cefdinir Attestations 2 Medical Necessity Statement*: Patient requires hospitalization for bradycardia, hypotension, anemia, hypocalcemia Diagnoses Bradycardia, severe sinus R00.1 Primary hypertension I10 Hypertension type: primary hypertension CAD (coronary artery disease) I25.10 Longstanding persistent atrial fibrillation I48.11 Atrial fibrillation type: longstanding persistent Tachy-sonali syndrome I49.5 PVD (peripheral vascular disease) I73.9 Mixed hyperlipidemia E78.2 Hyperlipidemia type: mixed hyperlipidemia Hypothyroidism E03.9 Acute kidney injury N17.9 Hyperkalemia E87.5 Hyponatremia E87.1 Goals of care, counseling/discussion Z71.89 Leukocytosis D72.829 Hypocalcemia E83.51 Acute anemia D64.9 Hypotension I95.9
[2023-11-27] MEDS: acetaminophen 325 mg Tablet 650 MG PO (12:39)
[2023-11-27] MEDS: potassium phosphate (mEq K) 40 MEQ in sodium chloride 0.9% (100 ml) 100 ML 27.2699999999999996 MEQ IV (12:39)
[2023-11-27] MEDS: gabapentin 100 mg Capsule 200 MG PO (13:14)
--- NOTE | 2023-11-27 15:26 | PC.NURSE ---
Dr. Wallace and Dr. Mendez notified of bradycardia and pauses, patient reports that she feels very relaxed and does not have any symptoms.
[2023-11-27] MEDS: pantoprazole 40 mg SDV IVP (17:05)
[2023-11-27] MEDS: efferdent effervescent 1 EACH DENTAL (20:13)
[2023-11-27] MEDS: oxyCODONE 5 mg IR Tab/Cap 2.5 MG PO (21:41)
[2023-11-28] VITALS (61 sets, daily range): BP systolic 92–191; BP diastolic 41–100; PULSE 45–84; RESP 14–29; TEMP 36.7–37.1; O2SAT 88–98
--- NOTE | 2023-11-28 00:03 | PC.NURSE ---
Dr. Mendez notified of patient maintaining heart rate in the 40s, having pauses, multiple PVCs, and heart rate dropping into the 30s at times. Rhythm is sinus bradycardia. Blood pressure is 108/48. Ordered to restart dopamine drip at low rate.
[2023-11-28] MEDS: ondansetron 2 mg/ML SDV 2 mL 4 MG IVP ×2 (05:05→18:39)
[2023-11-28 05:42] LABS: Basophils # 0.1 10^3/uL (0.0-0.1); Basophils % 0.8 %; Eosinophils # 0.5 10^3/uL (0.0-0.8); Hematocrit 26.6 % (36-47); Lymphocytes % 12.8 %; Mean Corpuscular HGB Conc 30.1 g/dL (30-55); Mean Corpuscular Hemoglobin 31.7 pg (27-33); Mean Corpuscular Volume 105.6 fl (85-98); Monocytes # 0.5 10^3/uL (0.2-0.9); Monocytes % 6.9 %; Neutrophils # 5.74 10^3/uL (1.8-7.7); Nucleated Red Blood Cells % 0 %; Platelet Count 229 10^3/cmm (157-399); Red Blood Count 2.52 10^6/uL (3.85-5.65); Red Cell Distribution Width 15.9 % (12.1-15.1); White Blood Count 7.86 10^3/uL (3.29-11.43)
[2023-11-28 06:05] LABS: Alanine Aminotransferase 15 U/L (0-33); Albumin Level 2.9 g/dL (3.5-5.2); Alkaline Phosphatase 130 U/L (35-105); Anion Gap 13.5 (5-19); Aspartate Amino Transferase 16 U/L (0-32); Blood Urea Nitrogen 19 mg/dL (8-23); Calcium 6.1 mg/dL (8.5-10.5); Carbon Dioxide 25 mmol/L (22-29); Chloride 106 mmol/L (98-107); Creatinine Clr Calc Pharmacy 36.2317; Globulin 2.2 g/dL (1.3-4.6); Glucose 93 mg/dL (65-115); Magnesium 2.2 mg/dL (1.7-2.3); Osmolality Calculated 292 mOsm/kg (285-295); Phosphorus 2.5 mg/dL (2.5-4.5); Potassium 4.5 mmol/L (3.5-5.1); Sodium 140 mmol/L (136-145); Total Bilirubin 0.3 mg/dL (0.15-1.2); Total Protein 5.1 g/dL (6.6-8.7)
[2023-11-28 06:12] LABS: Anion Gap 13.4 (5-19); Blood Urea Nitrogen 19 mg/dL (8-23); Calcium 6.3 mg/dL (8.5-10.5); Carbon Dioxide 25 mmol/L (22-29); Chloride 107 mmol/L (98-107); Creatinine Clr Calc Pharmacy 36.2317; Glucose 98 mg/dL (65-115); NT Pro B Type Natriuretic Pept 5495 pg/mL (0-450); Osmolality Calculated 294 mOsm/kg (285-295); Phosphorus 2.4 mg/dL (2.5-4.5); Potassium 4.4 mmol/L (3.5-5.1); Sodium 141 mmol/L (136-145)
--- NOTE | 2023-11-28 08:54 | PM.PN ---
Subjective Subjective: Patient was put on dopamine last night as heart rates were dropping and she was symptomatic. Heart rates in 60s this morning. Vitals/I&O/Wt Last Vital Signs Temp 98.6 F 11/28/23 07:30 Pulse 69 11/28/23 08:00 Resp 21 H 11/28/23 08:00 BP 160/67 11/28/23 08:00 Pulse Ox 94 11/28/23 08:00 O2 Del Method Room Air 11/28/23 08:00 O2 Flow Rate 1 11/28/23 02:00 11/27/23 11/28/23 11/28/23 22:59 06:59 14:59 Intake Total 343.5106 / 959.5106 4.871 / 964.3816 Output Total 350 / 350 325 / 675 Balance -6.4894 / 609.5106 -320.129 / 289.3816 Weight last 48 hrs Weight 144 lb 6.444 oz Weight 141 lb Physical Exam Narrative: GENERAL: Patient is alert, awake and oriented x3. [] NECK: No jugular vein distension. [] HEENT: No cyanosis. No icterus. No pallor. [] HEART: Regular rate and rhythm LUNGS: Clear to auscultate bilaterally. [] CENTRAL NERVOUS SYSTEM: Grossly nonfocal. 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 Continue dopamine gtt today. NPO past midnight. Plan for pacemaker placement tomorrow or wednesday based on procedure schedule. Thank you for involving us with care of this patient. We will continue to follow. Please call with questions Attestations Medical Necessity Statement*: Care expected to cross 2 midnights. Coding Level of Care Code Acute Code for Chg Fwd Diagnoses Bradycardia R00.1 Atrial fibrillation with rapid ventricular response I48.91 Atherosclerosis of [place] coronary artery of [place] heart without angina pectoris I25.10 Coronary Disease-Associated Artery/Lesion type: [place] artery Mixed hyperlipidemia E78.2 Hyperlipidemia type: mixed hyperlipidemia Peripheral arterial disease I73.9
[2023-11-28] MEDS: aspirin 81 mg EC Tablet PO (09:09)
[2023-11-28] MEDS: zinc gluconate 50 mg Tablet PO (09:09)
[2023-11-28] MEDS: cholecalciferol (vitamin D3) 1,000 unit Tablet 2000 UNIT PO (09:09)
[2023-11-28] MEDS: calcium carbonate 500 mg Chew Tablet 1000 MG PO ×2 (09:09→13:40)
[2023-11-28] MEDS: folic acid 1 mg Tablet PO ×3 (09:10→20:16)
[2023-11-28] MEDS: atorvastatin 40 mg Tablet PO (09:10)
[2023-11-28] MEDS: cefdinir 300 MG CAPSULE PO ×2 (09:10→18:05)
[2023-11-28] MEDS: gabapentin 300 mg Capsule PO ×2 (09:10→18:05)
[2023-11-28] MEDS: levothyroxine 100 mcg Tablet PO (09:10)
[2023-11-28] MEDS: heparin drip 25,000 UNIT/500 ML PREMIX 18.3399999999999999 UNIT IV (09:13)
[2023-11-28 11:51] LABS: Hematocrit 26.6 % (36-47)
[2023-11-28] MEDS: gabapentin 100 mg Capsule 200 MG PO (13:41)
[2023-11-28] MEDS: ofloxacin 0.3% Op Soln 5 mL Btl 1 DROP EYE-BOTH ×3 (13:41→20:17)
--- NOTE | 2023-11-28 14:07 | P.PN_ITS ---
Subjective 2 Subjective: Patient was seen this morning, overnight she developed episodes of hypotension, and bradycardia, placed back on dopamine this morning she is normotensive, heart rates in the 60s, remains on dopamine, she is alert awake, following all commands, we discussedstarting her back on heparin drip, monitoring hemoglobin, spoke to cardiology, plan on possible pacemaker placement tomorrow Vitals/I&O/Wt Last Vital Signs Temp 98.7 F 11/28/23 12:00 Pulse 68 11/28/23 12:30 Resp 22 H 11/28/23 12:30 BP 149/50 11/28/23 12:30 Pulse Ox 90 11/28/23 12:30 O2 Del Method Room Air 11/28/23 12:30 O2 Flow Rate 1 11/28/23 02:00 11/27/23 11/28/23 11/28/23 22:59 06:59 14:59 Intake Total 343.5106 / 959.5106 4.871 / 964.3816 242 / 242 Output Total 350 / 350 325 / 675 Balance -6.4894 / 609.5106 -320.129 / 289.3816 242 / 242 Weight last 48 hrs Weight 65.5 kg Weight 63.957 kg Physical Exam 2 Const: COMMON NORMALS: no acute distress and patient oriented x3 Resp: COMMON NORMALS: normal respiratory effort, No retractions, No use of accessory muscles and clear to auscultation bilaterally AUSCULTATION: clear to auscultation bilaterally Cardio: COMMON NORMALS: regular rhythm, S1 normal heart sound present and S2 normal heart sound present RATE: bradycardic RHYTHM: regular rhythm H EART SOUNDS: S1 normal heart sound present and S2 normal heart sound present GI: COMMON NORMALS: Normal to inspection, nondistended, normoactive bowel sounds present and non-tender Extremity: COMMON NORMALS: no pedal edema Neuro: COMMON NORMALS: patient oriented x3 Psych: COMMON NORMALS: mental status grossly normal Urinary Catheter Management: Alanis: Cath Placed During This Visit: yes Reason for Continuing Indwelling Catheter: Accurate Measurement of Urinary Output in Critically Ill Patients Urinary Catheter Date of Insertion: 11/24/23 Urinary Catheter Time of Insertion: 15:43 Data 11/28/23 11:36 11/28/23 04:49 A&P Assessment and plan (1) Bradycardia, severe sinus: (2) Hypertension: Qualifiers: Hypertension type: primary hypertension Qualified Code(s): I10 - Essential (primary) hypertension (3) CAD (coronary artery disease): (4) Afib: Qualifiers: Atrial fibrillation type: longstanding persistent Qualified Code(s): I 48.11 - Longstanding persistent atrial fibrillation (5) Tachy-sonali syndrome: (6) PVD (peripheral vascular disease): (7) Hyperlipidemia: Qualifiers: Hyperlipidemia type: mixed hyperlipidemia Qualified Code(s): E78.2 - Mixed hyperlipidemia (8) Hypothyroidism: (9) Acute kidney injury: (10) Hyperkalemia: (11) Hyponatremia: (12) Goals of care, counseling/discussion: (13) Leukocytosis: (14) Hypocalcemia: (15) Acute anemia: (16) Hypotension: Plan Bradycardia -Possibly secondary to amiodarone, ? Possibly secondary to sick sinus syndrome, tachybradycardia syndrome ? Had extensive discussion with patient about pacemaker placement, she is agreeable to pacemaker placement if it is absolutely required ? Plan, ?on dopamine, ? Will watch her in the ICU closely, ? Cardiology consulted, ? Hold Pradaxa, started on heparin drip,, ? N.p.o. midnight, for pacemaker placement tomorrow ? Monitor blood pressures and heart rates closely Hypotension ? Lactic acid within normal limits - requiring dopamine Acute anemia, 7.9 ? heparin drip, monitor hemoglobin every 6 hours ?monitor hemoglobin, transfuse if less than 7 Hyperkalemia, resolved ? Has received insulin, D10, Kayexalate bicarb in the emergency room Hypocalcemia ?Has evidence of hypoparathyroidism, vitamin D deficiency, ? Hypocalcemia this morning, with low ionized calcium, -Status post 1 g of IV calcium gluconate ? Start supplementation Acute kidney injury, resolving ? Creatinine 1.3 ? Renal ultrasound, ? Consult nephrology -ivf Metabolic acidosis, resolving ? Lactic acid within normal limits, -Next it could be from bradycardia, hypotension ? ER a started sodium bicarb Hyponatremia, IV fluids UTI, currently on meropenem, will de-escalate to cefdinir Leukocytosis of 29,000,resolving, now 13.38, follow blood cultures, urine cultures, chest x-ray no focal infiltrates respiratory viral panel, continue to monitor closely Goals of care discussion, patient tells me that she wants to remain a full code, until her grandson from [place] can come and see her, agreeable for pacemaker placement if required SCDs for DVT prophylaxis Plan for today up out of bed, PT OT, monitor heart rates, monitor blood pressures, continue dopamine drip Attestations 2 Medical Necessity Statement*: Patient requires hospitalization due to bradycardia, hypotension requiring dopamine drip, plan for pacemaker placement tomorrow, spoke to patient, spoke to nursing staff spoke to cardiology, currently on dopamine drip, heparin drip, monitoring hemoglobin, monitoring blood pressure monitoring heart rate Diagnoses Bradycardia, severe sinus R00.1 Primary hypertension I10 Hypertension type: primary hypertension CAD (coronary artery disease) I25.10 Longstanding persistent atrial fibrillation I48.11 Atrial fibrillation type: longstanding persistent Tachy-sonali syndrome I49.5 PVD (peripheral vascular disease) I73.9 Mixed hyperlipidemia E78.2 Hyperlipidemia type: mixed hyperlipidemia Hypothyroidism E03.9 Acute kidney injury N17.9 Hyperkalemia E87.5 Hyponatremia E87.1 Goals of care, counseling/discussion Z71.89 Leukocytosis D72.829 Hypocalcemia E83.51 Acute anemia D64.9 Hypotension I95.9
[2023-11-28] MEDS: pantoprazole 40 mg SDV IVP (16:34)
[2023-11-28 16:35] LABS: Partial Thromboplastin Time 104.6 SECONDS (23.9-36.7)
[2023-11-28 18:52] LABS: Hematocrit 25.7 % (36-47)
[2023-11-28] MEDS: acetaminophen 325 mg Tablet 650 MG PO (19:37)
--- NOTE | 2023-11-28 20:15 | PC.NURSE ---
Dr. Mendez was contacted to confirm pacemaker placement procedure for tomorrow (11/28). Dr. Mendez gave telephone orders to stop heparin drip at 0300, NPO at midnight, and a type and screen in regards to low hgb.
--- NOTE | 2023-11-28 22:23 | PC.NURSE ---
Patient had a positive occult blood test, Dr. Vargas was notified that patient was on a heparin drip with orders to stop at 0300. Dr. Vargas gave an order to stop the heparin drip now.
[2023-11-29] VITALS (99 sets, daily range): BP systolic 79–196; BP diastolic 37–97; PULSE 44–99; RESP 13–26; TEMP 36.6–37; O2SAT 85–98; BMI 23.6
[2023-11-29 00:12] LABS: Partial Thromboplastin Time 53.2 SECONDS (23.9-36.7)
[2023-11-29 01:47] LABS: Hematocrit 26.7 % (36-47)
[2023-11-29 05:50] LABS: Basophils # 0.1 10^3/uL (0.0-0.1); Basophils % 1.2 %; Eosinophils # 0.6 10^3/uL (0.0-0.8); Eosinophils % 9.3 %; Hematocrit 26.8 % (36-47); Lymphocytes # 0.9 10^3/uL (0.8-4.8); Lymphocytes % 15.6 %; Mean Corpuscular HGB Conc 29.9 g/dL (30-55); Mean Corpuscular Hemoglobin 31.5 pg (27-33); Mean Corpuscular Volume 105.5 fl (85-98); Mean Platelet Volume 9.4 fL (7.4-10.4); Monocytes # 0.5 10^3/uL (0.2-0.9); Neutrophils # 3.87 10^3/uL (1.8-7.7); Neutrophils % 65.6 %; Nucleated Red Blood Cells % 0 %; Platelet Count 253 10^3/cmm (157-399); Red Blood Count 2.54 10^6/uL (3.85-5.65); Red Cell Distribution Width 15.7 % (12.1-15.1)
[2023-11-29 06:11] LABS: Alanine Aminotransferase 14 U/L (0-33); Albumin Level 2.7 g/dL (3.5-5.2); Alkaline Phosphatase 120 U/L (35-105); Anion Gap 12.6 (5-19); Aspartate Amino Transferase 14 U/L (0-32); Blood Urea Nitrogen 13 mg/dL (8-23); Calcium 7.1 mg/dL (8.5-10.5); Carbon Dioxide 24 mmol/L (22-29); Chloride 112 mmol/L (98-107); Globulin 2.9 g/dL (1.3-4.6); Glucose 87 mg/dL (65-115); Magnesium 2.2 mg/dL (1.7-2.3); Osmolality Calculated 297 mOsm/kg (285-295); Phosphorus 1.9 mg/dL (2.5-4.5); Potassium 4.6 mmol/L (3.5-5.1); Sodium 144 mmol/L (136-145); Total Bilirubin 0.4 mg/dL (0.15-1.2); Total Protein 5.6 g/dL (6.6-8.7)
[2023-11-29 06:16] LABS: NT Pro B Type Natriuretic Pept 6325 pg/mL (0-450)
--- NOTE | 2023-11-29 08:16 | PM.PN ---
Subjective Subjective: The patient is feeling okay. The events of the weekend are noted. Her hemoglobin today is 8.0 denies any chest pain or shortness of breath. Her heart rate was going down into the 30s and had to be restarted on dopamine. Currently she is on dopamine at 2.5 mics per KG per minute. Medications: Medication Review Details: Current Medications Acetaminophen (Acetaminophen 325 Mg Tablet) 650 mg PO Q6H PRN PRN Reason: Mild/Mod Pain Or Temp >/= 101 Last Admin: 11/28/23 19:37 Dose: 650 mg Aspirin (Aspirin 81 Mg Ec Tablet) 81 mg PO DAILY [facility] Last Admin: 11/28/23 09:09 Dose: 81 mg Atorvastatin Calcium (Atorvastatin 40 Mg Tablet) 40 mg PO DAILY [facility] Last Admin: 11/28/23 09:10 Dose: 40 mg Calcium Carbonate (Calcium Carbonate 500 Mg Chew Tablet) 1,000 mg PO QID [facility] Last Admin: 11/28/23 20:17 Dose: Not Given Cefdinir (Cefdinir 300 Mg Capsule) 300 mg PO BID [facility]; Protocol Last Admin: 11/28/23 18:05 Dose: 300 mg Denture Adhesive (Efferdent Effervescent) 1 each DENTAL PRN PRN PRN Reason: soak dentures Last Admin: 11/27/23 20:13 Dose: 1 each Folic Acid (Folic Acid 1 Mg Tablet) 1 mg PO TID [facility] Last Admin: 11/28/23 20:16 Dose: 1 mg Gabapentin (Gabapentin 300 Mg Capsule) 300 mg PO BID [facility] Last Admin: 11/28/23 18:05 Dose: 300 mg Gabapentin (Gabapentin 100 Mg Capsule) 200 mg PO 1400 [facility] Last Admin: 11/28/23 13:41 Dose: 200 mg Heparin Sodium (Porcine) (Heparin 5,000 Unit/Ml Inj 1 Ml) 0 unit IV PRN PRN; Protocol PRN Reason: Heparin weight-base protocol Dextrose (D10w) 250 mls @ 1,000 mls/hr IV PRN PRN PRN Reason: HYPOGLYCEMIA Dopamine HCl/Dextrose (Intropin Drip) 400 mg in 250 mls @ 11.694 mls/hr IV CONT [facility]; Protocol Last Titration: 11/29/23 03:10 Dose: 2.5 mcg/kg/min, 5.85 mls/hr Levothyroxine Sodium (Levothyroxine 100 Mcg Tablet) 100 mcg PO DAILY [facility] Last Admin: 11/28/23 09:10 Dose: 100 mcg Ofloxacin (Ofloxacin 0.3% Op Soln 5 Ml Btl) 1 drop EYE-BOTH QID [facility] Last Admin: 11/28/23 20:17 Dose: 1 drop Ondansetron HCl (Ondansetron 2 Mg/Ml Sdv 2 Ml) 4 mg IVP Q6H PRN PRN Reason: NAUSEA AND VOMITING Last Admin: 11/28/23 18:39 Dose: 4 mg Oxycodone HCl (Oxycodone 5 Mg Ir Tab/Cap) 2.5 mg PO Q8H PRN PRN Reason: MODERATE TO SEVERE PAIN Last Admin: 11/27/23 21:41 Dose: 2.5 mg Pantoprazole Sodium (Pantoprazole 40 Mg Sdv) 40 mg IVP Q24H [facility] Last Admin: 11/28/23 16:34 Dose: 40 mg Vitamin D (Cholecalciferol (Vitamin D3) 1,000 Unit Tablet) 2,000 unit PO DAILY [facility] Last Admin: 11/28/23 09:09 Dose: 2,000 unit Zinc Gluconate (Zinc Gluconate 50 Mg Tablet) 50 mg PO DAILY [facility] Last Admin: 11/28/23 09:09 Dose: 50 mg Vitals/I&O/Wt Last Vital Signs Temp 98.3 F 11/29/23 02:30 Pulse 60 11/29/23 06:00 Resp 18 11/29/23 06:00 BP 158/53 11/29/23 06:00 Pulse Ox 91 11/29/23 06:00 O2 Del Method Room Air 11/29/23 06:00 O2 Flow Rate 1 11/28/23 02:00 11/28/23 11/29/23 11/29/23 22:59 06:59 14:59 Intake Total 433.867 / 675.867 239.585 / 915.452 Output Total 1010 / 1010 2050 / 3060 Balance -576.133 / -334.133 -1810.415 / -2144.548 Weight last 48 hrs Weight 137 lb 13 oz Weight 144 lb 6.444 oz Physical Exam Narrative: GENERAL: The patient is alert and oriented times three. Not in any acute distress. Somewhat lethargic HEENT: No significant pallor, icterus or lymphadenopathy.Oral cavity: There are no mucous membrane lesions. NECK: Trachea appears to be central. No masses noted. No JVD or thyromegaly appreciated. RESPIRATORY: Chest is symmetrical. No intercostals muscle retraction or any accessory muscle activation. There is no chest wall tenderness. Breath sounds are heard bilaterally. No rales or rhonchi heard. No evidence of any consolidation. BREASTS: Deferred. HEART: The heart sounds are normal. No S3 or S4. Short systolic murmur in the lower sternal border. No diastolic murmurs.. No pericardial rub ABDOMEN: No vessel pulsations or distention. No tenderness. No organomegaly appreciated. Bowel sounds are normally heard. : Deferred. RECTAL: Deferred. LYMPHATIC: No lymphadenopathy noted in the neck. EXTREMITIES: No edema or cyanosis. No clubbing. MUSCULOSKELETAL: No acute joint deformities or swelling SKIN: There are no significant rashes or ecchymosis NEUROPSYCHIATRIC: The patient is alert and oriented x3. Somewhat lethargic. Urinary Catheter Management: Alanis: Cath Placed During This Visit: yes Reason for Continuing Indwelling Catheter: Accurate Measurement of Urinary Output in Critically Ill Patients Urinary Catheter Date of Insertion: 11/24/23 Urinary Catheter Time of Insertion: 15:43 Data 11/29/23 05:16 11/29/23 05:16 Other Labs: Laboratory Last Values WBC 5.90 10^3/uL (3.29-11.43) 11/29/23 05:16 RBC 2.54 10^6/uL (3.85-5.65) L 11/29/23 05:16 Hgb 8.00 g/dL (11.27-16.99) L 11/29/23 05:16 Hct 26.8 % (36-47) L 11/29/23 05:16 MCV 105.5 fl (85-98) H 11/29/23 05:16 MCH 31.5 pg (27-33) 11/29/23 05:16 MCHC 29.9 g/dL (30-55) L 11/29/23 05:16 RDW 15.7 % (12.1-15.1) H 11/29/23 05:16 Plt Count 253 10^3/cmm (157-399) 11/29/23 05:16 MPV 9.4 fL (7.4-10.4) 11/29/23 05:16 Neut % (Auto) 65.6 % 11/29/23 05:16 Lymph % (Auto) 15.6 % 11/29/23 05:16 [place] % (Auto) 8.0 % 11/29/23 05:16 Eos % (Auto) 9.3 % 11/29/23 05:16 Baso % (Auto) 1.2 % 11/29/23 05:16 Neut # (Auto) 3.87 10^3/uL (1.8-7.7) 11/29/23 05:16 Lymph # (Auto) 0.9 10^3/uL (0.8-4.8) 11/29/23 05:16 [place] # (Auto) 0.5 10^3/uL (0.2-0.9) 11/29/23 05:16 Eos # (Auto) 0.6 10^3/uL (0.0-0.8) 11/29/23 05:16 Baso # (Auto) 0.1 10^3/uL (0.0-0.1) 11/29/23 05:16 Nucleated RBC % (auto) 0 % 11/29/23 05:16 Nucleated RBCs # 0.0 /100WBC 11/29/23 05:16 APTT 53.2 SECONDS (23.9-36.7) H 11/28/23 23:41 Sodium 144 mmol/L (136-145) 11/29/23 05:16 Potassium 4.6 mmol/L (3.5-5.1) 11/29/23 05:16 Chloride 112 mmol/L (98-107) H 11/29/23 05:16 Carbon Dioxide 24 mmol/L (22-29) 11/29/23 05:16 Anion Gap 12.6 (5-19) 11/29/23 05:16 BUN 13 mg/dL (8-23) 11/29/23 05:16 Creatinine 0.9 mg/dL (0.5-0.9) 11/29/23 05:16 GFR Calculation Not Reportable 11/29/23 05:16 Glucose 87 mg/dL (65-115) 11/29/23 05:16 POC Glucose 131 mg/dL (70-110) H 11/24/23 21:01 Estimat Average Glucose 91 11/24/23 18:40 Hemoglobin A1c 4.8 % (4.0-6.0) 11/24/23 18:40 Calculated Osmolality 297 mOsm/kg (285-295) H 11/29/23 05:16 Lactic Acid 0.8 mmol/L (0.5-2.2) 11/26/23 16:37 Calcium 7.1 mg/dL (8.5-10.5) L 11/29/23 05:16 Ionized Calcium [place] 0.9 mmol/L (1.1-1.4) L 11/26/23 16:37 Phosphorus 1.9 mg/dL (2.5-4.5) L 11/29/23 05:16 Magnesium 2.2 mg/dL (1.7-2.3) 11/29/23 05:16 Total Bilirubin 0.4 mg/dL (0.15-1.2) 11/29/23 05:16 AST 14 U/L (0-32) 11/29/23 05:16 ALT 14 U/L (0-33) 11/29/23 05:16 Alkaline Phosphatase 120 U/L (35-105) H 11/29/23 05:16 Troponin T Baseline 23 ng/L (0-10) H 11/24/23 15:28 Troponin T 120 Minute 23.38 ng/L (0-10) H 11/24/23 18:40 Delta Troponin T 0.38 ABS# (0-10) 11/24/23 18:40 Troponin T Hi Sens 6Hr 23.86 ng/L (0-10) H 11/24/23 21:01 Troponin T Hi Sens 6Hr Delta 0.86 ng/L (0-12) 11/24/23 21:01 C-Reactive Protein 19.0 mg/L (0.0-4.9) H 11/24/23 18:40 NT-Pro-B Natriuret Pep 6325 pg/mL (0-450) H 11/29/23 05:16 Total Protein 5.6 g/dL (6.6-8.7) L 11/29/23 05:16 Albumin 2.7 g/dL (3.5-5.2) L 11/29/23 05:16 Globulin 2.9 g/dL (1.3-4.6) 11/29/23 05:16 Triglycerides 98 mg/dL (0-150) 11/24/23 18:40 Cholesterol 104 mg/dL (0-200) 11/24/23 18:40 LDL Cholesterol, Calc 37 mg/dL (50-129) L 11/24/23 18:40 HDL Cholesterol 47 mg/dL (60-100) L 11/24/23 18:40 LDL/HDL Ratio 0.79 RATIO (0.00-3.22) 11/24/23 18:40 Cholesterol/HDL Ratio 2.21 mg/dL (0.0-4.40) 11/24/23 18:40 Lipase 20 U/L (13-60) 11/24/23 15:28 25-OH Vitamin D Total 20 ng/mL (30-100) L 11/25/23 05:49 Procalcitonin 0.99 ng/mL (0-0.5) H 11/24/23 18:40 TSH 1.01 uIU/mL (0.27-4.20) 11/24/23 15:28 PTH Intact 715.9 pg/mL (15-65) H 11/25/23 04:45 Calcium (PTH Intact) 6.1 mg/dL (8.5-10.5) L 11/25/23 04:45 Urine Color Yellow (Yellow) 11/24/23 15:40 Urine Appearance Clear (CLEAR) 11/24/23 15:40 Urine pH 5 (5-7) 11/24/23 15:40 Ur Specific [place] 1.015 (1.005-1.030) 11/24/23 15:40 Urine Protein 1+ (Negative) H 11/24/23 15:40 Urine Glucose (UA) Norm (Normal) 11/24/23 15:40 Urine Ketones 1+ (Negative) H 11/24/23 15:40 Urine Blood Neg (Negative) 11/24/23 15:40 Urine Nitrate Negative (Negative) 11/24/23 15:40 Urine Bilirubin 1+ (Negative) H 11/24/23 15:40 Urine Urobilinogen Norm mg/dL (Negative) 11/24/23 15:40 Ur Leukocyte Esterase Trace (Negative) H 11/24/23 15:40 Urine RBC 0-4 /hpf (0-2) H 11/24/23 15:40 Urine WBC 10-15 /hpf (0-5) H 11/24/23 15:40 Ur Squamous Epith Cells 0-4 /hpf (0-5) H 11/24/23 15:40 Amorphous Sediment Not Reportable 11/24/23 15:40 Urine Bacteria Trace /hpf (NONE) 11/24/23 15:40 Hyaline Casts 0-4 /lpf H 11/24/23 15:40 Adenovirus (PCR) Not detected (NOT DETECT) 11/25/23 09:55 C. pneumoniae DNA (PCR) Not detected (NOT DETECT) 11/25/23 09:55 C. difficile (PCR) Negative (Negative) 11/26/23 11:15 Coronavirus 229E (PCR) Not detected (NOT DETECT) 11/25/23 09:55 Human Metapneumovir PCR Not detected (NOT DETECT) 11/25/23 09:55 Influenza A (H1) PCR Not detected (NOT DETECT) 11/25/23 09:55 Influ A (H1/09) PCR Not detected (NOT DETECT) 11/25/23 09:55 Influenza A (H3) PCR Not detected (NOT DETECT) 11/25/23 09:55 Influenza Type A (PCR) Not detected (NOT DETECT) 11/25/23 09:55 Influenza Type B (PCR) Not detected (NOT DETECT) 11/25/23 09:55 M. pneumoniae (PCR) Not detected (NOT DETECT) 11/25/23 09:55 Parainfluenza 1 (PCR) Not detected (NOT DETECT) 11/25/23 09:55 Parainfluenza 2 (PCR) Not detected (NOT DETECT) 11/25/23 09:55 Parainfluenza 3 (PCR) Not detected (NOT DETECT) 11/25/23 09:55 Parainfluenza 4 (PCR) Not detected (NOT DETECT) 11/25/23 09:55 RSV Type A (PCR) Not detected (NOT DETECT) 11/25/23 09:55 RSV Type B (PCR) Not detected (NOT DETECT) 11/25/23 09:55 Entero/Rhino (PCR) Not detected (NOT DETECT) 11/25/23 09:55 SARS-CoV-2 (PCR) Not detected (NOT DETECT) 11/25/23 09:55 Blood Type A Positive 11/28/23 20:21 Rho(D) Type Rh positive 11/28/23 20:21 Antibody Screen Negative 11/28/23 20:21 Micro: Microbiology 11/28/23 18:29 Occult Blood (FIT) - Final Stool Routine Collection A&P Assessment and plan (1) Bradycardia: The patient has sinus node dysfunction. She requires a permanent pacemaker, for further management of her condition. The risk of bleeding, hematoma, vascular injury, myocardial infarction, myocardial perforation, malignant cardiac arrhythmias ,CVA, renal failure and other concomitant complications were explained in detail. Patient understood this well and consented to proceed (2) Atrial fibrillation with rapid ventricular response: Patient is off the oral anticoagulant for more than 72 hours. She is currently only on DVT prophylaxis (3) Atherosclerosis of coronary artery of [place] heart without angina pectoris: Her Myocardial perfusion imaging in April of last year was unremarkable. May continue on the current management. Qualifiers: Coronary Disease-Associated Artery/Lesion type: [place] artery Qualified Code(s): I25.10 - Atherosclerotic heart disease of [place] coronary artery without angina pectoris (4) Hyperlipidemia: May continue on the current management. 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 Found to be less than 50%. (6) Acute anemia: Patient has evidence of GI bleed. It has been stable. It might be appropriate to transfuse her with 1 unit of blood to keep the hemoglobin around 9 Plan Because of the conflict with my schedule, I am going to request Dr. Washington to perform the permanent pacemaker implantation procedure in the operating room. Attestations Medical Necessity Statement*: Patient requires continued hospital stay for close monitoring and further management Coding Level of Care Code Acute Code for Chg Fwd Diagnoses Bradycardia R00.1 Atrial fibrillation with rapid ventricular response I48.91 Atherosclerosis of [place] coronary artery of [place] heart without angina pectoris I25.10 Coronary Disease-Associated Artery/Lesion type: [place] artery Mixed hyperlipidemia E78.2 Hyperlipidemia type: mixed hyperlipidemia Peripheral arterial disease I73.9 Acute anemia D64.9
[2023-11-29] MEDS: atorvastatin 40 mg Tablet PO (09:23)
[2023-11-29] MEDS: cholecalciferol (vitamin D3) 1,000 unit Tablet 2000 UNIT PO (09:25)
[2023-11-29] MEDS: levothyroxine 100 mcg Tablet PO (09:25)
[2023-11-29] MEDS: folic acid 1 mg Tablet PO ×3 (09:26→20:10)
[2023-11-29] MEDS: calcium carbonate 500 mg Chew Tablet 1000 MG PO ×4 (09:28→20:10)
[2023-11-29] MEDS: cefdinir 300 MG CAPSULE PO ×2 (09:28→18:10)
[2023-11-29] MEDS: gabapentin 300 mg Capsule PO ×2 (09:28→18:10)
[2023-11-29] MEDS: zinc gluconate 50 mg Tablet PO (09:28)
[2023-11-29] MEDS: ofloxacin 0.3% Op Soln 5 mL Btl 1 DROP EYE-BOTH ×4 (09:28→20:15)
[2023-11-29] MEDS: ondansetron 2 mg/ML SDV 2 mL 4 MG IVP ×2 (10:14→18:16)
--- NOTE | 2023-11-29 11:24 | PC.SOCIAL ---
IMM Update Pg. 2 of IMM updated and reviewed with patient, who verbalized understanding. Copy provided, and copy placed in chart.
[2023-11-29] MEDS: DOPamine drip 400 MG/250 ML PREMIX 2.33999999999999986 MG IV (13:28)
--- NOTE | 2023-11-29 13:36 | PC.NURSE ---
TAR vital signs: See vital sign flow sheet/intervention.
--- NOTE | 2023-11-29 14:06 | P.PN_ITS ---
Subjective 2 Subjective: Patient was seen this morning, she is being n.p.o. overnight for possible pacemaker placement, she tells me that she had a good night, no lightheadedness, no dizziness, no nausea, no vomiting, currently heart rates in the 60s, blood pressures are a bit soft, spoke to cardiology, plan on pacemaker placement tomorrow, hemoglobin is 8.0, transfuse 1 unit PRBC, overnight patient's heparin drip was stopped due to Hemoccult positive stools, currently off anticoagulation Vitals/I&O/Wt Last Vital Signs Temp 97.9 F 11/29/23 13:31 Pulse 62 11/29/23 13:31 Resp 21 H 11/29/23 13:31 BP 119/54 11/29/23 13:31 Pulse Ox 94 11/29/23 13:31 O2 Del Method Room Air 11/29/23 11:15 O2 Flow Rate 1 11/28/23 02:00 11/28/23 11/29/23 11/29/23 22:59 06:59 14:59 Intake Total 433.867 / 675.867 239.585 / 915.452 21.330 / 21.330 Output Total 1010 / 1010 2050 / 3060 Balance -576.133 / -334.133 -1810.415 / -2144.548 21.330 / 21.330 Weight last 48 hrs Weight 62.511 kg Weight 65.5 kg Physical Exam 2 Const: COMMON NORMALS: no acute distress and patient oriented x3 Resp: COMMON NORMALS: normal respiratory effort, No retractions, No use of accessory muscles and clear to auscultation bilaterally AUSCULTATION: clear to auscultation bilaterally Cardio: COMMON NORMALS: regular rate, regular rhythm, S1 normal heart sound present and S2 normal heart sound present RATE: regular rate RHYTHM: r egular rhythm HEART SOUNDS: S1 normal heart sound present and S2 normal heart sound present GI: COMMON NORMALS: Normal to inspection, nondistended, normoactive bowel sounds present and non-tender Extremity: COMMON NORMALS: no pedal edema Neuro: COMMON NORMALS: patient oriented x3 Psych: COMMON NORMALS: mental status grossly normal Urinary Catheter Management: Alanis: Cath Placed During This Visit: yes Reason for Continuing Indwelling Catheter: Accurate Measurement of Urinary Output in Critically Ill Patients Urinary Catheter Date of Insertion: 11/24/23 Urinary Catheter Time of Insertion: 15:43 Data 11/29/23 05:16 11/29/23 05:16 Micro: Microbiology 11/28/23 18:29 Occult Blood (FIT) - Final Stool Routine Collection A&P Assessment and plan (1) Bradycardia, severe sinus: (2) Hypertension: Qualifiers: Hypertension type: primary hypertension Qualified Code(s): I10 - Essential (primary) hypertension (3) CAD (coronary artery disease): (4) Afib: Qualifiers: Atrial fibrillation type: longstanding persistent Qualified Code(s): I 48.11 - Longstanding persistent atrial fibrillation (5) Tachy-sonali syndrome: (6) PVD (peripheral vascular disease): (7) Hyperlipidemia: Qualifiers: Hyperlipidemia type: mixed hyperlipidemia Qualified Code(s): E78.2 - Mixed hyperlipidemia (8) Hypothyroidism: (9) Acute kidney injury: (10) Hyperkalemia: (11) Hyponatremia: (12) Goals of care, counseling/discussion: (13) Leukocytosis: (14) Hypocalcemia: (15) Acute anemia: (16) Hypotension: (17) GI bleed: Plan Bradycardia -Possibly secondary to amiodarone, ? Possibly secondary to sick sinus syndrome, tachybradycardia syndrome ? Had extensive discussion with patient about pacemaker placement, she is agreeable to pacemaker placement if it is absolutely required ? Plan, ?on dopamine, ? Will watch her in the ICU closely, ? Cardiology consulted, ? Hold Pradaxa, hold heparin drip,, ? N.p.o. midnight, for pacemaker placement tomorrow ? Monitor blood pressures and heart rates closely Hypotension ? Lactic acid within normal limits - requiring dopamine Acute anemia, concerns for slow GI bleed, heme occult positive stool, hemoglobin 8.0 ? Discontinue heparin drip, ? Transfuse 1 unit PRBC ?monitor hemoglobin, transfuse if less than 7 Hyperkalemia, resolved ? Has received insulin, D10, Kayexalate bicarb in the emergency room Hypocalcemia ?Has evidence of hypoparathyroidism, vitamin D deficiency, ? Hypocalcemia this morning, with low ionized calcium, -Status post 1 g of IV calcium gluconate ? Start supplementation Acute kidney injury, resolving ? Creatinine 1.3 ? Renal ultrasound, ? Consult nephrology -ivf Metabolic acidosis, resolving ? Lactic acid within normal limits, -Next it could be from bradycardia, hypotension ? ER a started sodium bicarb Hyponatremia, IV fluids UTI, currently on meropenem, will de-escalate to cefdinir Leukocytosis of 29,000,resolving, now 13.38, follow blood cultures, urine cultures, chest x-ray no focal infiltrates respiratory viral panel, continue to monitor closely Goals of care discussion, patient tells me that she wants to remain a full code, until her grandson from [place] can come and see her, agreeable for pacemaker placement if required SCDs for DVT prophylaxis Plan for today transfuse 20 unit PRBC continue dopamine drip, monitor hemoglobin closely, stop heparin drip Attestations 2 Medical Necessity Statement*: Patient requires hospitalization for bradycardia, now with GI bleed, requiring pacemaker placement requiring transfusions, Diagnoses Bradycardia, severe sinus R00.1 Primary hypertension I10 Hypertension type: primary hypertension CAD (coronary artery disease) I25.10 Longstanding persistent atrial fibrillation I48.11 Atrial fibrillation type: longstanding persistent Tachy-sonali syndrome I49.5 PVD (peripheral vascular disease) I73.9 Mixed hyperlipidemia E78.2 Hyperlipidemia type: mixed hyperlipidemia Hypothyroidism E03.9 Acute kidney injury N17.9 Hyperkalemia E87.5 Hyponatremia E87.1 Goals of care, counseling/discussion Z71.89 Leukocytosis D72.829 Hypocalcemia E83.51 Acute anemia D64.9 Hypotension I95.9 GI bleed K92.2
[2023-11-29] MEDS: gabapentin 100 mg Capsule 200 MG PO (15:06)
--- NOTE | 2023-11-29 15:07 | PC.NURSE ---
Addendum entered by Karen Shetty RN 11/29/23 15:12: this occurred at 1030 Original Note: BP 193/80. Heart rate 64. Started titrating Dopamine down per Dr Wallace's direction.
--- NOTE | 2023-11-29 15:09 | PC.NURSE ---
BP 88/37, heart rate 45. Dopamine increased back to 2.5mcg/kg/min.
[2023-11-29] MEDS: pantoprazole 40 mg SDV IVP (18:11)
--- NOTE | 2023-11-29 19:23 | XRR_ITS ---
PROCEDURE INFORMATION: Exam: XR Chest Exam date and time: 11/29/2023 6:48 PM Age: 88 years old Clinical indication: Other: Chf; Prior surgery; Surgery date: 6+ months; Surgery type: Openheart; Additional info: Chf, as upright as possible TECHNIQUE: Imaging protocol: Radiologic exam of the chest. Views: 1 view. COMPARISON: CR (CHEST, ) 11/24/2023 6:59 PM FINDINGS: Tubes, catheters and devices: Right PICC is stable in positioning. Lungs: No consolidation. Pleural spaces: No pleural effusion. No pneumothorax. Heart/Mediastinum: Similar cardiomegaly. Bones/joints: Sternotomy wires noted. Visualized osseous structures are intact. XR/XR chest 1V portable [id number] IMPRESSION: No acute findings.
--- NOTE | 2023-11-29 19:25 | PC.NURSE ---
Shift summary: Pt remains alert and oriented. She is very sensitive to Dopamine. Her SBP was greater than 190 mid morning, Dopamine was infusing at 2.5mcg/kg/min. Per Dr Wallace start weaning the Dopamine. was actually able to have it weaned off for about an hour then her heart rate dropped to 42 and her SBP 88. Restarted Dopamine at 2.5mcg/kg/min. It brought her BP back up to MAPS 65 or greater but her heart rate took longer, it would hover 47-55. Pt did state she was tired, but she thought it was from being in the bed so much. She did complain of nausea twice this shift, once in am when she was NPO them later before dinner. Zofran admin both times seemed to help. She sat up in chair around lunch time, her strength has improved. Afebrile today. Her HGB has been right around 8, she received a unit of PRBCs this shift. Urine output of 1000 ml. NO Bms noted.
[2023-11-29] MEDS: acetaminophen 325 mg Tablet 650 MG PO (20:10)
[2023-11-29] MEDS: nitroglycerin 1 gm/inch oint Pkt 0.5 INCH TOPICAL (23:22)
[2023-11-29] MEDS: efferdent effervescent 1 EACH DENTAL (23:23)
[2023-11-30] VITALS (69 sets, daily range): BP systolic 67–188; BP diastolic 43–98; PULSE 57–84; RESP 12–26; TEMP 35.8–36.8; O2SAT 96–100; BMI 23.6
[2023-11-30] MEDS: hyDRALAzine 20 mg/mL INJ 1 mL 10 MG IVP (02:25)
[2023-11-30 05:09] LABS: Basophils # 0.1 10^3/uL (0.0-0.1); Basophils % 1.3 %; Eosinophils # 0.5 10^3/uL (0.0-0.8); Eosinophils % 8.2 %; Hematocrit 32.9 % (36-47); Lymphocytes # 1.2 10^3/uL (0.8-4.8); Mean Corpuscular HGB Conc 31.3 g/dL (30-55); Mean Corpuscular Hemoglobin 31.9 pg (27-33); Mean Corpuscular Volume 101.9 fl (85-98); Mean Platelet Volume 9.1 fL (7.4-10.4); Monocytes # 0.5 10^3/uL (0.2-0.9); Monocytes % 8.3 %; Neutrophils # 3.85 10^3/uL (1.8-7.7); Nucleated Red Blood Cells % 0 %; Platelet Count 256 10^3/cmm (157-399); Red Blood Count 3.23 10^6/uL (3.85-5.65); Red Cell Distribution Width 16.8 % (12.1-15.1); White Blood Count 6.11 10^3/uL (3.29-11.43)
[2023-11-30 05:23] LABS: INR 0.96 (0.8-1.2)
[2023-11-30 05:40] LABS: Alanine Aminotransferase 12 U/L (0-33); Alkaline Phosphatase 125 U/L (35-105); Anion Gap 14.3 (5-19); Aspartate Amino Transferase 16 U/L (0-32); Blood Urea Nitrogen 14 mg/dL (8-23); Calcium 7.7 mg/dL (8.5-10.5); Carbon Dioxide 23 mmol/L (22-29); Chloride 109 mmol/L (98-107); Globulin 3.4 g/dL (1.3-4.6); Glucose 93 mg/dL (65-115); Magnesium 2.4 mg/dL (1.7-2.3); NT Pro B Type Natriuretic Pept 5996 pg/mL (0-450); Osmolality Calculated 292 mOsm/kg (285-295); Phosphorus 1.8 mg/dL (2.5-4.5); Potassium 5.3 mmol/L (3.5-5.1); Sodium 141 mmol/L (136-145); Total Bilirubin 0.7 mg/dL (0.15-1.2); Total Protein 6.4 g/dL (6.6-8.7)
[2023-11-30] MEDS: sodium chloride 0.9% 1,000 ML 75 ML IV (06:04)
--- NOTE | 2023-11-30 06:43 | PC.NURSE ---
Dr. Galvez contacted regarding NS order, confirmed order for NS 75ml/hr starting morning of procedure.
--- NOTE | 2023-11-30 06:50 | PC.NURSE ---
Pt off unit to [employer]able products sorter for pacemaker implantation.
--- NOTE | 2023-11-30 06:55 | W.PM.OPSUD ---
Surgery/Procedure H&P Update DATE OF PROCEDURE: November 30, 2023 DATE H&P PERFORMED: 11/24/23 H&P UPDATE INFORMATION: I have reviewed H&P completed within last 30 days, I have examined patient prior to procedure and No changes to prior documentation PREOP DIAGNOSIS: Symptomatic bradycardia PRIMARY INDICATION FOR PROCEDURE: Atrial fibrillation/symptomatic bradycardia PLANNED PROCEDURE: Operation Date: 11/30/23 07:00 Proposed Procedures p Pacemaker Insertion(Not Applicable) - Toni Galvez MD PATIENT REASSESSED PRIOR TO SEDATION, WITH NO CHANGE NOTED: Yes PHYSICAL EXAM: alert, oriented x 3, clear to auscultation bilaterally and regular rate & rhythm AIRWAY EVAL/ANESTHESIA PLAN: normal airway, see other exam findings, ASA IV, Local Anesthesia, Risks, benefits & alternatives of sedation and/or procedure discussed and Patient agrees to continue as planned
--- NOTE | 2023-11-30 07:58 | PC.OT ---
OT TREATMENT HELD TODAY DUE TO PATIENT SCHEDULED FOR PACEMAKER PLACEMENT
--- NOTE | 2023-11-30 09:44 | P.OP_ITS ---
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 COMPLICATIONS: None ESTIMATED BLOOD LOSS: None BRIEF HISTORY: 88-year-old white female with a history of atherosclerotic heart diseas, previous myocardial infarction, open heart surgery, atrial fibrillation presented with complaints of symptomatic bradycardia. She was on IV dopamine to maintain the normal heartbeat. For further management of the patient's condition, a permanent pacemaker implantation was recommended. A dual-chamber permanent pacemaker implantation was recommended for AV synchrony and symptom relief. The procedure was explained to the patient in detail with the risks and benefits. The risks of bleeding, hematoma, vascular injury, infection, pneumothorax, myocardial perforation and other concomitant complications were explained in detail, which the patient understood well and consented to proceed. PROCEDURE DESCRIPTION: The patient was brought to the Cardiac Catheterization Lab. The left and the right side of the neck and the subclavian area were cleaned and draped in a sterile fashion. 1% Xylocaine was used as the local anesthetic agent. A left subclavian venous access was obtained using a mi cropuncture needle system. Apparently the patient did not have any peripheral venous access to do a venogram. A 2-inch long incision was made 2.0 centimeters below the midclavicular region. By sharp and blunt dissection, a pacemaker pocket was made. Over the guidewire, a 7-Palestinian venous sheath with dilator was advanced. A second venous access obtained by a double barrel technique. The venous dilator and the guidewire were taken out. There was some difficulty in advancing the venous sheath. A venogram was performed by injecting dye into the venous sheath. The patient was found to have some narrowing of the brachiocephalic vein, where it drains into the superior vena cava. So we had to exchange the regular 7 Palestinian venous sheath for a long 7 Palestinian venous sheath. A screw-in ventricular lead was advanced through the venous sheath and was positioned towards the right ventricle. Under fluoroscopic guidance, the ventricular lead was positioned toward the right ventricular apex. Good pacing and sensing thresholds were obtained. Because of the previous myocardial infarction, there was extensive scarring in the inferior wall region. So it took a while to identify the right place to place the wire. The lead was secured to the endocardium by advancing the helix. The stability of the lead was tested by gentle twisting movements and also by asking the patient to take some deep breaths and cough The venous sheath was peeled off at this time. The lead was secured to the pectoralis fascia by suturing with 1-0 Surgilon. At this point, it was decided not to put the atrial lead because of difficulty in advancing the sheath and also since the patient was complaining of neck pain as I was trying to do this. It was also decided to use the dual-chamber device, in case if she needs an atrial lead in the future. The atrial port was capped. The pacemaker pocket was copiously irrigated with Vancomycin solution. Complete hemostasis was achieved. Sponge counts were confirmed. The lead was attached to a Medtronic generator. The lead was positioned behind the generator and the generator was attached to the pectoralis fascia by suturing with 0 Surgilon. The pocket was closed in layers. Skin was approximated using 4-0 Vicryl. IMPLANTED DEVICES: VENTRICULAR LEAD: Model number: [id number]/[id number] Serial number: [id number] Brand: Medtronic GENERATOR Model number: [id number] Serial number: [id number] Brand: [place] XT DR MRI Surescan IMPLANTATION DATA: With the pacing system analyzer, the R-wave sensing was 10.5 millivolts with a lead impedance of 870 ohms and a pacing threshold of 1.0 volts at 0.5 milliseconds. Through the device, the R-wave sensing was 7.1 millivolts with a lead impedance of 855 and a pacing threshold of 1.25 volts at 0.4 milliseconds. The pacemaker was set for VVIR mode with upper rate of 130 and a lower rate of 60. A pressure dressing was applied over the pacemaker site. The patient was transferred to the Medical Floor in stable condition. A chest x-ray was ordered to confirm the lead position and also to rule out any pneumothorax.
--- NOTE | 2023-11-30 10:00 | PC.NURSE ---
Pt requested the SCDs be left off. She stated the are too heavy.
[2023-11-30] MEDS: levothyroxine 100 mcg Tablet PO (10:16)
[2023-11-30] MEDS: atorvastatin 40 mg Tablet PO (10:19)
[2023-11-30] MEDS: cefdinir 300 MG CAPSULE PO (10:19)
[2023-11-30] MEDS: zinc gluconate 50 mg Tablet PO (10:19)
[2023-11-30] MEDS: calcium carbonate 500 mg Chew Tablet 1000 MG PO ×4 (10:22→21:14)
[2023-11-30] MEDS: cholecalciferol (vitamin D3) 1,000 unit Tablet 2000 UNIT PO (10:22)
[2023-11-30] MEDS: gabapentin 300 mg Capsule PO ×2 (10:23→17:53)
[2023-11-30] MEDS: folic acid 1 mg Tablet PO ×3 (10:23→21:14)
[2023-11-30] MEDS: oxyCODONE 5 mg IR Tab/Cap 2.5 MG PO ×2 (10:24)
[2023-11-30] MEDS: ofloxacin 0.3% Op Soln 5 mL Btl 1 DROP EYE-BOTH ×4 (10:29→21:14)
[2023-11-30] MEDS: acetaminophen 325 mg Tablet 650 MG PO ×2 (11:57→23:47)
--- NOTE | 2023-11-30 13:12 | XR_ITS ---
WS: [id number] Exam: XR chest 1V portable [id number] Date/Time of Exam: 11/30/2023 1:17 PM Reason For Exam: post pacemaker placement Comparison 11/29/2023. The lungs are fully expanded. Bibasal plaque atelectasis noted. Mild cardiac enlargement unchanged. A right-sided PICC line ends at the cavoatrial junction. A cardiac pacer has been placed. Signs of med ronal sternotomy. Bony structures are intact. No pneumothorax. IMPRESSION: 1. Bibasal plaque atelectasis. 2. Cardiac enlargement unchanged. 3. Cardiac pacemaker now visualized over the LEFT chest. Right-sided PICC line in satisfactory locati on.
[2023-11-30] MEDS: gabapentin 100 mg Capsule 200 MG PO (14:05)
[2023-11-30] MEDS: ceFAZolin 2,000 MG in sodium chloride 0.9% (plus) 50 ML 100 MG IV ×2 (14:08→23:39)
--- NOTE | 2023-11-30 17:01 | P.PN_ITS ---
Subjective 2 Subjective: Patient was seen this morning, after her pacemaker placement, does report weakness, no chest pain, no palpitations, Vitals/I&O/Wt Last Vital Signs Temp 98.3 F 11/30/23 14:30 Pulse 62 11/30/23 16:15 Resp 22 H 11/30/23 16:15 BP 112/63 11/30/23 16:15 Pulse Ox 97 11/30/23 16:15 O2 Del Method Room Air 11/30/23 16:15 O2 Flow Rate 1 11/30/23 04:15 11/30/23 11/30/23 11/30/23 06:59 14:59 22:59 Intake Total 45.923 / 1006.331 28.47 / 28.47 Output Total 1000 / 2650 775 / 775 Balance -954.077 / -1643.669 -746.53 / -746.53 Weight last 48 hrs Weight 62.511 kg Weight 62.511 kg Physical Exam 2 Const: COMMON NORMALS: no acute distress ORIENTATION/CONSCIOUSNESS: Yes awake, Yes oriented to person and Yes oriented to place; not oriented to time Neck/C-Spine: COMMON NORMALS: no JVD Resp: COMMON NORMALS: normal respiratory effort, No retractions, No use of accessory muscles and clear to auscultation bilaterally AUSCULTATION: clear to auscultation bilaterally Cardio: COMMON NORMALS: no JVD, regular rate, regular rhythm, S1 normal heart sound present and S2 normal heart sound present RATE: regular rate RHYTHM: regular rhythm HEART SOUNDS: S1 normal heart sound present and S2 normal heart sound present GI: COMMON NORMALS: Normal to inspection, nondistended, normoactive bowel sounds present and non-tender Extremity: COMMON NORMALS: no pedal edema Neuro: SENSORIUM/ORIENTATION: Yes oriented to person, Yes oriented to place and No oriented to time Psych: COMMON NORMALS: mental status grossly normal Urinary Catheter Management: Alanis: Cath Placed During This Visit: yes Reason for Continuing Indwelling Catheter: Accurate Measurement of Urinary Output in Critically Ill Patients Urinary Catheter Date of Insertion: 11/24/23 Urinary Catheter Time of Insertion: 15:43 Data 11/30/23 04:43 11/30/23 04:43 Micro: Microbiology 11/24/23 19:00 Blood Culture - Final Blood NO GROWTH AFTER 5 DAYS 11/24/23 18:40 Blood Culture - Final Blood NO GROWTH AFTER 5 DAYS A&P Assessment and plan (1) Bradycardia, severe sinus: (2) Hypertension: Qualifiers: Hypertension type: primary hypertension Qualified Code(s): I10 - Essential (primary) hypertension (3) CAD (coronary artery disease): (4) Afib: Qualifiers: Atrial fibrillation type: longstanding persistent Qualified Code(s): I 48.11 - Longstanding persistent atrial fibrillation (5) Tachy-sonali syndrome: (6) PVD (peripheral vascular disease): (7) Hyperlipidemia: Qualifiers: Hyperlipidemia type: mixed hyperlipidemia Qualified Code(s): E78.2 - Mixed hyperlipidemia (8) Hypothyroidism: (9) Acute kidney injury: (10) Hyperkalemia: (11) Hyponatremia: (12) Goals of care, counseling/discussion: (13) Leukocytosis: (14) Hypocalcemia: (15) Acute anemia: (16) Hypotension: (17) GI bleed: Plan Bradycardia -Possibly secondary to amiodarone, ? Possibly secondary to sick sinus syndrome, tachybradycardia syndrome ? Plan, ?off dopamine, ? Status post pacemaker placement ? Cardiology consulted, ? Hold Pradaxa, hold heparin drip,, ? Monitor blood pressures and heart rates closely Hypotension ? Lactic acid within normal limits Acute anemia, concerns for slow GI bleed, heme occult positive stool, hemoglobin 8.0 ? Discontinue heparin drip, discontinue Pradaxa ? Transfuse 1 unit PRBC ?monitor hemoglobin, transfuse if less than 7 Hyperkalemia, resolved ? Has received insulin, D10, Kayexalate bicarb in the emergency room Hypocalcemia ?Has evidence of hypoparathyroidism, vitamin D deficiency, ? Hypocalcemia this morning, with low ionized calcium, -Status post 1 g of IV calcium gluconate ? Start supplementation Acute kidney injury, resolving ? Creatinine 1.3 ? Renal ultrasound, ? Consult nephrology -ivf Metabolic acidosis, resolving ? Lactic acid within normal limits, -Next it could be from bradycardia, hypotension ? ER a started sodium bicarb Hyponatremia, IV fluids UTI, currently on meropenem, will de-escalate to cefdinir Leukocytosis of 29,000,resolving, now 13.38, follow blood cultures, urine cultures, chest x-ray no focal infiltrates respiratory viral panel, continue to monitor closely Goals of care discussion, patient tells me that she wants to remain a full code, until her grandson from [place] can come and see her, agreeable for pacemaker placement if required SCDs for DVT prophylaxis Plan for today status post pacemaker placement will monitor, PT OT monitor blood pressures Attestations 2 Medical Necessity Statement*: Patient requires hospitalization for bradycardia requiring pacemaker placement, GI bleed, anemia, deconditioning Diagnoses Bradycardia, severe sinus R00.1 Primary hypertension I10 Hypertension type: primary hypertension CAD (coronary artery disease) I25.10 Longstanding persistent atrial fibrillation I48.11 Atrial fibrillation type: longstanding persistent Tachy-sonali syndrome I49.5 PVD (peripheral vascular disease) I73.9 Mixed hyperlipidemia E78.2 Hyperlipidemia type: mixed hyperlipidemia Hypothyroidism E03.9 Acute kidney injury N17.9 Hyperkalemia E87.5 Hyponatremia E87.1 Goals of care, counseling/discussion Z71.89 Leukocytosis D72.829 Hypocalcemia E83.51 Acute anemia D64.9 Hypotension I95.9 GI bleed K92.2
[2023-11-30] MEDS: pantoprazole 40 mg SDV IVP (17:53)
--- NOTE | 2023-11-30 18:10 | PC.NURSE ---
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 Shoulder immobilizer in place. Pt following instructions to keep left arm/shoulder still. She has been sitting up in chair since lunch, repositioned in chair a couple times at her request. Pillow under her left arm for comfort. Right PICC patent: flushes easitly and good blood return. Heart rhythm was sinus, first degree block when she came back from procedure, this afternoon the pacemaker started firing, 60bpm. She did have less than an hour of hypotension this afternoon when she was resting with eyes closed, Dr Wallace aware, just to monitor. It resolved without intervention. Urine output of 825ml this shift. No BM . She did complain of pain post procedure, oxy admin once for her neck pain, it provided relief. SHe also complained of headache at that time, Oxy did not provide relief. Tylenol admin, it did provide relief. No further complaints of paiin this shift.
--- NOTE | 2023-11-30 18:24 | PM.PN ---
Subjective Subjective: The patient is feeling okay. No chest pain or shortness of breath. Hemoglobin is around 10 after the transfusion. Medications: Medication Review Details: Current Medications Acetaminophen (Acetaminophen 325 Mg Tablet) 650 mg PO Q6H PRN PRN Reason: Mild/Mod Pain Or Temp >/= 101 Last Admin: 11/30/23 11:57 Dose: 650 mg Aspirin (Aspirin 81 Mg Ec Tablet) 81 mg PO DAILY [facility] Last Admin: 11/29/23 10:32 Dose: Not Given Atorvastatin Calcium (Atorvastatin 40 Mg Tablet) 40 mg PO DAILY [facility] Last Admin: 11/30/23 10:19 Dose: 40 mg Calcium Carbonate (Calcium Carbonate 500 Mg Chew Tablet) 1,000 mg PO QID [facility] Last Admin: 11/30/23 17:53 Dose: 1,000 mg Denture Adhesive (Efferdent Effervescent) 1 each DENTAL PRN PRN PRN Reason: soak dentures Last Admin: 11/29/23 23:23 Dose: 1 each Folic Acid (Folic Acid 1 Mg Tablet) 1 mg PO TID [facility] Last Admin: 11/30/23 14:06 Dose: 1 mg Gabapentin (Gabapentin 300 Mg Capsule) 300 mg PO BID [facility] Last Admin: 11/30/23 17:53 Dose: 300 mg Gabapentin (Gabapentin 100 Mg Capsule) 200 mg PO 1400 [facility] Last Admin: 11/30/23 14:05 Dose: 200 mg Heparin Sodium (Porcine) (Heparin 5,000 Unit/Ml Inj 1 Ml) 0 unit IV PRN PRN; Protocol PRN Reason: Heparin weight-base protocol Hydralazine HCl (Hydralazine 20 Mg/Ml Inj 1 Ml) 10 mg IVP Q4H PRN PRN Reason: HYPERTENSION Last Admin: 11/30/23 02:25 Dose: 10 mg Dextrose (D10w) 250 mls @ 1,000 mls/hr IV PRN PRN PRN Reason: HYPOGLYCEMIA Cefazolin Sodium 2,000 mg/ (Sodium Chloride) 50 mls @ 100 mls/hr IV Q8H [facility]; Protocol Stop: 12/01/23 07:29 Last Infusion: 11/30/23 14:45 Dose: Infused Lanolin (Lanolin Oint 7 Gm) 1 applic TOPICAL PRN PRN PRN Reason: DRYNESS Levothyroxine Sodium (Levothyroxine 100 Mcg Tablet) 100 mcg PO DAILY [facility] Last Admin: 11/30/23 10:16 Dose: 100 mcg Nitroglycerin (Nitroglycerin 1 Gm/Inch Oint Pkt) 0.5 inch TOPICAL Q6H PRN PRN Reason: SBP consistently > 160 Last Admin: 11/29/23 23:22 Dose: 0.5 inch Ofloxacin (Ofloxacin 0.3% Op Soln 5 Ml Btl) 1 drop EYE-BOTH QID [facility] Last Admin: 11/30/23 17:53 Dose: 1 drop Ondansetron HCl (Ondansetron 2 Mg/Ml Sdv 2 Ml) 4 mg IVP Q6H PRN PRN Reason: NAUSEA AND VOMITING Last Admin: 11/29/23 18:16 Dose: 4 mg Oxycodone HCl (Oxycodone 5 Mg Ir Tab/Cap) 2.5 mg PO Q8H PRN PRN Reason: MODERATE TO SEVERE PAIN Last Admin: 11/30/23 10:24 Dose: 2.5 mg Pantoprazole Sodium (Pantoprazole 40 Mg Sdv) 40 mg IVP Q24H [facility] Last Admin: 11/30/23 17:53 Dose: 40 mg Vitamin D (Cholecalciferol (Vitamin D3) 1,000 Unit Tablet) 2,000 unit PO DAILY [facility] Last Admin: 11/30/23 10:22 Dose: 2,000 unit Zinc Gluconate (Zinc Gluconate 50 Mg Tablet) 50 mg PO DAILY [facility] Last Admin: 11/30/23 10:19 Dose: 50 mg Vitals/I&O/Wt Last Vital Signs Temp 98.3 F 11/30/23 14:30 Pulse 61 11/30/23 18:00 Resp 18 11/30/23 18:00 BP 124/98 11/30/23 18:00 Pulse Ox 99 11/30/23 18:00 O2 Del Method Room Air 11/30/23 18:00 O2 Flow Rate 1 11/30/23 04:15 11/30/23 11/30/23 11/30/23 06:59 14:59 22:59 Intake Total 45.923 / 1006.331 278.47 / 278.47 200 / 478.47 Output Total 1000 / 2650 775 / 775 50 / 825 Balance -954.077 / -1643.669 -496.53 / -496.53 150 / -346.53 Weight last 48 hrs Weight 137 lb 13 oz Weight 137 lb 13 oz Physical Exam Narrative: GENERAL: The patient is alert and oriented times three. Not in any acute distress. Somewhat lethargic HEENT: No significant pallor, icterus or lymphadenopathy.Oral cavity: There are no mucous membrane lesions. NECK: Trachea appears to be central. No masses noted. No JVD or thyromegaly appreciated. RESPIRATORY: Chest is symmetrical. No intercostals muscle retraction or any accessory muscle activation. There is no chest wall tenderness. Breath sounds are heard bilaterally. No rales or rhonchi heard. No evidence of any consolidation. BREASTS: Deferred. HEART: The heart sounds are normal. No S3 or S4. Short systolic murmur in the lower sternal border. No diastolic murmurs.. No pericardial rub ABDOMEN: No vessel pulsations or distention. No tenderness. No organomegaly appreciated. Bowel sounds are normally heard. : Deferred. RECTAL: Deferred. LYMPHATIC: No lymphadenopathy noted in the neck. EXTREMITIES: No edema or cyanosis. No clubbing. MUSCULOSKELETAL: No acute joint deformities or swelling SKIN: There are no significant rashes or ecchymosis NEUROPSYCHIATRIC: The patient is alert and oriented x3. Somewhat lethargic. Urinary Catheter Management: Alanis: Cath Placed During This Visit: yes Reason for Continuing Indwelling Catheter: Accurate Measurement of Urinary Output in Critically Ill Patients Urinary Catheter Date of Insertion: 11/24/23 Urinary Catheter Time of Insertion: 15:43 Data 11/30/23 04:43 11/30/23 04:43 Micro: Microbiology 11/24/23 19:00 Blood Culture - Final Blood NO GROWTH AFTER 5 DAYS 11/24/23 18:40 Blood Culture - Final Blood NO GROWTH AFTER 5 DAYS A&P Assessment and plan (1) Bradycardia: Patient underwent a permanent pacer implantation today. She she is currently has a VVI pacing. (2) Atrial fibrillation with rapid ventricular response: Patient may be placed back on the anticoagulant after 36 hours. (3) Atherosclerosis of coronary artery of [place] heart without angina pectoris: Asymptomatic. Continue on the current medications. Qualifiers: Coronary Disease-Associated Artery/Lesion type: [place] artery Qualified Code(s): I25.10 - Atherosclerotic heart disease of [place] coronary artery without angina pectoris (4) Hyperlipidemia: May continue on the current management. 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 Found to be less than 50%. (6) Acute anemia: Status post blood transfusion, stable hemoglobin. No evidence of any active bleed. Plan The patient will be transferred to the telemetry floor. Continue on the IV antibiotics. Attestations Medical Necessity Statement*: Deferred to the primary Coding Level of Care Code 15438 Diagnoses Bradycardia R00.1 Atrial fibrillation with rapid ventricular response I48.91 Atherosclerosis of [place] coronary artery of [place] heart without angina pectoris I25.10 Coronary Disease-Associated Artery/Lesion type: [place] artery Mixed hyperlipidemia E78.2 Hyperlipidemia type: mixed hyperlipidemia Peripheral arterial disease I73.9 Acute anemia D64.9
[2023-11-30] MEDS: efferdent effervescent 1 EACH DENTAL (21:26)
[2023-12-01] VITALS (11 sets, daily range): BP systolic 164–195; BP diastolic 72–89; PULSE 60–70; RESP 16–24; TEMP 36.1; O2SAT 95–98
[2023-12-01 04:39] LABS: Basophils # 0.1 10^3/uL (0.0-0.1); Basophils % 1.3 %; Eosinophils # 0.5 10^3/uL (0.0-0.8); Hematocrit 30.9 % (36-47); Lymphocytes % 14.9 %; Mean Corpuscular HGB Conc 29.8 g/dL (30-55); Mean Corpuscular Hemoglobin 31.4 pg (27-33); Mean Corpuscular Volume 105.5 fl (85-98); Mean Platelet Volume 9.4 fL (7.4-10.4); Monocytes # 0.6 10^3/uL (0.2-0.9); Monocytes % 8.7 %; Neutrophils # 4.72 10^3/uL (1.8-7.7); Neutrophils % 67.7 %; Nucleated Red Blood Cells % 0 %; Platelet Count 251 10^3/cmm (157-399); Red Blood Count 2.93 10^6/uL (3.85-5.65); Red Cell Distribution Width 16.6 % (12.1-15.1); White Blood Count 6.98 10^3/uL (3.29-11.43)
[2023-12-01 05:00] LABS: Alanine Aminotransferase 8 U/L (0-33); Albumin Level 2.7 g/dL (3.5-5.2); Alkaline Phosphatase 109 U/L (35-105); Anion Gap 12.9 (5-19); Aspartate Amino Transferase 15 U/L (0-32); Blood Urea Nitrogen 19 mg/dL (8-23); Calcium 7.2 mg/dL (8.5-10.5); Carbon Dioxide 21 mmol/L (22-29); Chloride 108 mmol/L (98-107); Creatinine Clr Calc Pharmacy 35.4978; Glucose 84 mg/dL (65-115); Magnesium 2.3 mg/dL (1.7-2.3); Osmolality Calculated 285 mOsm/kg (285-295); Potassium 4.9 mmol/L (3.5-5.1); Sodium 137 mmol/L (136-145); Total Bilirubin 0.3 mg/dL (0.15-1.2); Total Protein 5.7 g/dL (6.6-8.7)
[2023-12-01 05:06] LABS: NT Pro B Type Natriuretic Pept 4351 pg/mL (0-450)
[2023-12-01] MEDS: acetaminophen 325 mg Tablet 650 MG PO (05:40)
[2023-12-01] MEDS: ceFAZolin 2,000 MG in sodium chloride 0.9% (plus) 50 ML 100 MG IV (05:43)
--- NOTE | 2023-12-01 06:00 | ECG_ITS ---
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 Measurements Intervals [place] Rate: 60 P: 0 WY: 0 QRS: -67 QRSD: 160 T: 107 QT: 520 QTc: 520 Interpretive Statements ELECTRONIC VENTRICULAR PACEMAKER ABNORMAL RHYTHM ECG Compared to ECG 11/25/2023 21:45:41 Atrial fibrillation no longer present Left-axis deviation no longer present Intraventricular conduction delay no longer present Electronically Signed On 12-02-2023 0:02:30 CDT by Toni Galvez M.D. [email or web address]
[2023-12-01] MEDS: calcium carbonate 500 mg Chew Tablet 1000 MG PO (08:50)
[2023-12-01] MEDS: atorvastatin 40 mg Tablet PO (08:50)
[2023-12-01] MEDS: cholecalciferol (vitamin D3) 1,000 unit Tablet 2000 UNIT PO (08:50)
[2023-12-01] MEDS: ofloxacin 0.3% Op Soln 5 mL Btl 1 DROP EYE-BOTH (08:51)
[2023-12-01] MEDS: folic acid 1 mg Tablet PO (08:51)
[2023-12-01] MEDS: zinc gluconate 50 mg Tablet PO (08:51)
[2023-12-01] MEDS: gabapentin 300 mg Capsule PO (08:51)
[2023-12-01] MEDS: levothyroxine 100 mcg Tablet PO (08:51)
[2023-12-01] MEDS: ondansetron 2 mg/ML SDV 2 mL 4 MG IVP (08:57)
--- NOTE | 2023-12-01 10:48 | PC.SOCIAL ---
IMM Update Pg. 2 of IMM updated and reviewed with patient who verbalized understanding. Copy Provided.
--- NOTE | 2023-12-01 10:59 | P.DS_ITS ---
Discharge Providers Date of Admission: 11/24/23 15:09 Date of Discharge: December 01, 2023 Attending Provider at Admission: Dav Wallace MD Attending Provider at Discharge: Dav Wallace MD Primary Care Provider: PARISH Medel Diagnoses at Discharge Discharge Diagnosis (1) Bradycardia: Status: Resolved (2) Atrial fibrillation with rapid ventricular response: Status: Resolved (3) Atherosclerosis of coronary artery of [place] heart without angina pectoris: Status: Acute Qualifiers: Coronary Disease-Associated Artery/Lesion type: [place] artery Qualified Code(s): I25.10 - Atherosclerotic heart disease of [place] coronary artery without angina pectoris (4) Hyperlipidemia: Status: Acute Qualifiers: Hyperlipidemia type: mixed hyperlipidemia Qualified Code(s): E78.2 - Mixed hyperlipidemia (5) Peripheral arterial disease: Status: Acute (6) Acute anemia: Status: Acute Reason for Visit Reason for Visit: Gen Weakness Hospital Course Hospital Course Shanna Lang is a 88 year old female with a past medical history of tachybradycardia syndrome, history of atrial fibrillation, on amiodarone, on Pradaxa, history of rheumatoid arthritis, history of CAD, history of single- vessel bypass graft, history of V-fib arrest in [facility], history of GERD, hypertension, hyperlipidemia, who presents to [facility] from assisted living facility as she has been feeling unwell, lightheaded, dizzy, she has had several falls over the last few days. She also reports anterior chest discomfort, pain in into her neck, no nausea, no vomiting, no shortness of breath, she is using her medications as prescribed, denies any fevers, no chills, no significant trauma from the falls, no syncope, no blacking out, no head trauma, she tells me that she feels weak all over, during her hospitali zation in April, she required cardioversion, she tells me, for her atrial fibrillation, Patient was admitted to [facility] for bradycardia, likely multifactorial from amiodarone, sick sinus syndrome, tachybradycardia syndrome, required ICU admission, cardiology consulted required dopamine, after prolonged monitoring, due to persistent bradycardia requiring dopamine, patient had pacema ker placement, tolerated procedure well, discharged with close follow-up with cardiology as outpatient Patient's hospitalization was complicated by acute anemia, concerns for slow GI bleed with Hemoccult positive stools, requiring PRBC during hospitalization, on discharge her Pradaxa has been held. She is to follow-up with primary care provider and cardiology for monitoring hemoglobin follow-up with general surgery for consideration of EGD and colonoscopy in 1 month, discharged on Protonix and Carafate Patient is to position was complicated with hypocalcemia, with concerns of hypoparathyroidism vitamin D deficiency, discharged with close follow-up with endocrinology Physical Exam Const: COMMON NORMALS: no acute distress and patient oriented x3 Resp: COMMON NORMALS: normal respiratory effort, No retractions, No use of accessory muscles and clear to auscultation bilaterally AUSCULTATION: clear to auscultation bilaterally Cardio: COMMON NORMALS: regular rate, regular rhythm, S1 normal heart sound present and S2 normal heart sound present RATE: regular rate RHYTHM: regular rhythm HEART SOUNDS: S1 normal heart sound present and S2 normal heart sound present GI: COMMON NORMALS: Normal to inspection, nondistended, normoactive bowel sounds present and non-tender Extremity: COMMON NORMALS: no pedal edema Neuro: COMMON NORMALS: patient oriented x3 Psych: COMMON NORMALS: mental status grossly normal Urinary Catheter Management: Alanis: Cath Placed During This Visit: yes Reason for Continuing Indwelling Catheter: Accurate Measurement of Urinary Output in Critically Ill Patients Urinary Catheter Date of Insertion: 11/24/23 Urinary Catheter Time of Insertion: 15:43 Discharge Data Studies Completed and Pending Completed Studies During Hospitalization Category Date Time Status [employer] request for service Routine Exams 11/30/23 06:07 Completed CXRP [XR chest 1V portable [id number]] Routine Exams 11/24/23 18:33 Completed CXRP [XR chest 1V portable [id number]] Routine Exams 11/29/23 19:23 Completed XR chest 1V portable [id number] Routine Exams 11/30/23 13:12 Completed XR chest 1V portable [id number] Stat Exams 11/24/23 13:59 Completed CV. echo complete* [id number] Routine Ultrasound 11/24/23 17:36 Completed US renal BI* [id number] Routine Ultrasound 11/24/23 17:36 Completed Pending at discharge Category Date Time Status Complete Blood Count w/Auto AM LABS Lab 12/02/23 04:00 Ordered Complete Blood Count w/Auto AM LABS Lab 12/03/23 04:00 Ordered Comprehensive Metabolic Panel AM LABS Lab 12/02/23 04:00 Ordered Comprehensive Metabolic Panel AM LABS Lab 12/03/23 04:00 Ordered Magnesium AM LABS Lab 12/02/23 04:00 Ordered Magnesium AM LABS Lab 12/03/23 04:00 Ordered NT Pro B Type Natriuretic Pept QAM Lab 12/02/23 06:00 Ordered NT Pro B Type Natriuretic Pept QAM Lab 12/03/23 06:00 Ordered Phosphorus AM LABS Lab 12/02/23 04:00 Ordered Phosphorus AM LABS Lab 12/03/23 04:00 Ordered Platelet Count Q2D Lab 12/02/23 04:00 Ordered Radiology Impressions Renal Ultrasound 11/24/23 17:36 IMPRESSION: Age related renal atrophy, no specific abnormalities. Laboratory Results WBC 6.98 10^3/uL (3.29-11.43) 12/01/23 04:11 RBC 2.93 10^6/uL (3.85-5.65) L 12/01/23 04:11 Hgb 9.20 g/dL (11.27-16.99) L 12/01/23 04:11 Hct 30.9 % (36-47) L 12/01/23 04:11 MCV 105.5 fl (85-98) H 12/01/23 04:11 MCH 31.4 pg (27-33) 12/01/23 04:11 MCHC 29.8 g/dL (30-55) L 12/01/23 04:11 RDW 16.6 % (12.1-15.1) H 12/01/23 04:11 Plt Count 251 10^3/cmm (157-399) 12/01/23 04:11 MPV 9.4 fL (7.4-10.4) 12/01/23 04:11 Neut % (Auto) 67.7 % 12/01/23 04:11 Lymph % (Auto) 14.9 % 12/01/23 04:11 Pike % (Auto) 8.7 % 12/01/23 04:11 Eos % (Auto) 7.0 % 12/01/23 04:11 Baso % (Auto) 1.3 % 12/01/23 04:11 Neut # (Auto) 4.72 10^3/uL (1.8-7.7) 12/01/23 04:11 Lymph # (Auto) 1.0 10^3/uL (0.8-4.8) 12/01/23 04:11 Pike # (Auto) 0.6 10^3/uL (0.2-0.9) 12/01/23 04:11 Eos # (Auto) 0.5 10^3/uL (0.0-0.8) 12/01/23 04:11 Baso # (Auto) 0.1 10^3/uL (0.0-0.1) 12/01/23 04:11 Nucleated RBC % (auto) 0 % 12/01/23 04:11 Nucleated RBCs # 0.0 /100WBC 12/01/23 04:11 PT 13.10 SECONDS (12.1-14.9) 11/30/23 04:43 INR 0.96 (0.8-1.2) 11/30/23 04:43 APTT 53.2 SECONDS (23.9-36.7) H 11/28/23 23:41 Sodium 137 mmol/L (136-145) 12/01/23 04:11 Potassium 4.9 mmol/L (3.5-5.1) 12/01/23 04:11 Chloride 108 mmol/L (98-107) H 12/01/23 04:11 Carbon Dioxide 21 mmol/L (22-29) L 12/01/23 04:11 Anion Gap 12.9 (5-19) 12/01/23 04:11 BUN 19 mg/dL (8-23) 12/01/23 04:11 Creatinine 1.0 mg/dL (0.5-0.9) H 12/01/23 04:11 GFR Calculation Not Reportable 12/01/23 04:11 Glucose 84 mg/dL (65-115) 12/01/23 04:11 POC Glucose 131 mg/dL (70-110) H 11/24/23 21:01 Estimat Average Glucose 91 11/24/23 18:40 Hemoglobin A1c 4.8 % (4.0-6.0) 11/24/23 18:40 Calculated Osmolality 285 mOsm/kg (285-295) 12/01/23 04:11 Lactic Acid 0.8 mmol/L (0.5-2.2) 11/26/23 16:37 Calcium 7.2 mg/dL (8.5-10.5) L 12/01/23 04:11 Ionized Calcium Aliyah 0.9 mmol/L (1.1-1.4) L 11/26/23 16:37 Phosphorus 2.0 mg/dL (2.5-4.5) L 12/01/23 04:11 Magnesium 2.3 mg/dL (1.7-2.3) 12/01/23 04:11 Total Bilirubin 0.3 mg/dL (0.15-1.2) 12/01/23 04:11 AST 15 U/L (0-32) 12/01/23 04:11 ALT 8 U/L (0-33) 12/01/23 04:11 Alkaline Phosphatase 109 U/L (35-105) H 12/01/23 04:11 Troponin T Baseline 23 ng/L (0-10) H 11/24/23 15:28 Troponin T 120 Minute 23.38 ng/L (0-10) H 11/24/23 18:40 Delta Troponin T 0.38 ABS# (0-10) 11/24/23 18:40 Troponin T Hi Sens 6Hr 23.86 ng/L (0-10) H 11/24/23 21:01 Troponin T Hi Sens 6Hr [place] 0.86 ng/L (0-12) 11/24/23 21:01 C-Reactive Protein 19.0 mg/L (0.0-4.9) H 11/24/23 18:40 NT-Pro-B Natriuret Pep 4351 pg/mL (0-450) H 12/01/23 04:11 Total Protein 5.7 g/dL (6.6-8.7) L 12/01/23 04:11 Albumin 2.7 g/dL (3.5-5.2) L 12/01/23 04:11 Globulin 3.0 g/dL (1.3-4.6) 12/01/23 04:11 Triglycerides 98 mg/dL (0-150) 11/24/23 18:40 Cholesterol 104 mg/dL (0-200) 11/24/23 18:40 LDL Cholesterol, Calc 37 mg/dL (50-129) L 11/24/23 18:40 HDL Cholesterol 47 mg/dL (60-100) L 11/24/23 18:40 LDL/HDL Ratio 0.79 RATIO (0.00-3.22) 11/24/23 18:40 Cholesterol/HDL Ratio 2.21 mg/dL (0.0-4.40) 11/24/23 18:40 Lipase 20 U/L (13-60) 11/24/23 15:28 25-OH Vitamin D Total 20 ng/mL (30-100) L 11/25/23 05:49 Procalcitonin 0.99 ng/mL (0-0.5) H 11/24/23 18:40 TSH 1.01 uIU/mL (0.27-4.20) 11/24/23 15:28 PTH Intact 715.9 pg/mL (15-65) H 11/25/23 04:45 Calcium (PTH Intact) 6.1 mg/dL (8.5-10.5) L 11/25/23 04:45 Urine Color Yellow (Yellow) 11/24/23 15:40 Urine Appearance Clear (CLEAR) 11/24/23 15:40 Urine pH 5 (5-7) 11/24/23 15:40 Ur Specific Richardson 1.015 (1.005-1.030) 11/24/23 15:40 Urine Protein 1+ (Negative) H 11/24/23 15:40 Urine Glucose (UA) Norm (Normal) 11/24/23 15:40 Urine Ketones 1+ (Negative) H 11/24/23 15:40 Urine Blood Neg (Negative) 11/24/23 15:40 Urine Nitrate Negative (Negative) 11/24/23 15:40 Urine Bilirubin 1+ (Negative) H 11/24/23 15:40 Urine Urobilinogen Norm mg/dL (Negative) 11/24/23 15:40 Ur Leukocyte Esterase Trace (Negative) H 11/24/23 15:40 Urine RBC 0-4 /hpf (0-2) H 11/24/23 15:40 Urine WBC 10-15 /hpf (0-5) H 11/24/23 15:40 Ur Squamous Epith Cells 0-4 /hpf (0-5) H 11/24/23 15:40 Amorphous Sediment Not Reportable 11/24/23 15:40 Urine Bacteria Trace /hpf (NONE) 11/24/23 15:40 Hyaline Casts 0-4 /lpf H 11/24/23 15:40 Adenovirus (PCR) Not detected (NOT DETECT) 11/25/23 09:55 C. pneumoniae DNA (PCR) Not detected (NOT DETECT) 11/25/23 09:55 C. difficile (PCR) Negative (Negative) 11/26/23 11:15 Coronavirus 229E (PCR) Not detected (NOT DETECT) 11/25/23 09:55 Human Metapneumovir PCR Not detected (NOT DETECT) 11/25/23 09:55 Influenza A (H1) PCR Not detected (NOT DETECT) 11/25/23 09:55 Influ A (H1/09) PCR Not detected (NOT DETECT) 11/25/23 09:55 Influenza A (H3) PCR Not detected (NOT DETECT) 11/25/23 09:55 Influenza Type A (PCR) Not detected (NOT DETECT) 11/25/23 09:55 Influenza Type B (PCR) Not detected (NOT DETECT) 11/25/23 09:55 M. pneumoniae (PCR) Not detected (NOT DETECT) 11/25/23 09:55 Parainfluenza 1 (PCR) Not detected (NOT DETECT) 11/25/23 09:55 Parainfluenza 2 (PCR) Not detected (NOT DETECT) 11/25/23 09:55 Parainfluenza 3 (PCR) Not detected (NOT DETECT) 11/25/23 09:55 Parainfluenza 4 (PCR) Not detected (NOT DETECT) 11/25/23 09:55 RSV Type A (PCR) Not detected (NOT DETECT) 11/25/23 09:55 RSV Type B (PCR) Not detected (NOT DETECT) 11/25/23 09:55 Entero/Rhino (PCR) Not detected (NOT DETECT) 11/25/23 09:55 SARS-CoV-2 (PCR) Not detected (NOT DETECT) 11/25/23 09:55 Blood Type A Positive 11/28/23 20:21 Rho(D) Type Rh positive 11/28/23 20:21 Antibody Screen Negative 11/28/23 20:21 Crossmatch See Detail 11/28/23 20:21 Vitals Last Vital Signs Temp 97.0 F L 12/01/23 02:00 Pulse 60 12/01/23 10:00 Resp 18 12/01/23 10:00 BP 164/89 12/01/23 10:00 Pulse Ox 96 12/01/23 10:00 O2 Del Method Room Air 11/30/23 23:59 O2 Flow Rate 1 11/30/23 04:15 Discharge Plan Discharge Patient Disposition: Xfer SNF Condition: Stable Prescriptions: New cholecalciferol (vitamin D3) 25 mcg (1,000 unit) Tablet 2,000 unit PO DAILY 30 Days Qty: 30 0RF Protonix 40 mg tablet,delayed release (DR/EC) 40 mg PO BID 30 Days Qty: 60 0RF Carafate 1 gram tablet 1 g PO BID 28 Days Qty: 56 0RF amlodipine 10 mg Tablet 10 mg PO DAILY 30 Days Qty: 30 0RF Continued furosemide 20 mg tablet 20 mg PO DAILY 90 Days Qty: 90 0RF potassium chloride [Klor-Con] 20 mEq packet 20 meq PO DAILY 100 Days Qty: 100 1RF leflunomide 20 mg tablet 20 mg PO DAILY Qty: 90 0RF acetaminophen [Tylenol Extra Strength] 500 mg tablet 500 mg PO BID 30 Days Qty: 60 3RF Rx Instructions: Take with Tramadol BID ferrous sulfate [Feosol] 325 mg (65 mg iron) tablet 325 mg PO DAILY 30 Days Qty: 30 0RF tramadol 50 mg tablet 50 mg PO BID PRN (Reason: pain) 30 Days Qty: 45 2RF calcium carbonate [Tums] 200 mg calcium (500 mg) tablet,chewable 200 mg PO BID PRN (Reason: dyspepsia) 30 Days Qty: 60 2RF nitroglycerin 400 mcg/spray spray,non-aerosol 1 spray translingual Q5M PRN (Reason: chest pain) Qty: 4.9 3RF Rx Instructions: do not exceed 3 doses per episode Zyrtec 10 mg capsule 10 mg PO DAILY PRN (Reason: allergy symptoms) 30 Days Qty: 30 0RF ondansetron 4 mg tablet,disintegrating 4 mg PO .COMPLEX Qty: 30 0RF Rx Instructions: 4 mg orally before breakfast and other medications; ascorbic acid (vitamin C) [Vitamin C] 500 mg Tablet 2,000 mg PO DAILY zinc gluconate 50 mg Tablet 50 mg PO DAILY [employer] 3 billion cell Capsule 1 cap PO QAM atorvastatin 40 mg tablet 40 mg PO DAILY omeprazole 40 mg capsule,delayed release(DR/EC) 40 mg PO BEDTIME loperamide-simethicone [Imodium Multi-Symptom Relief] 2-125 mg Tablet 1 tab PO PRN PRN (Reason: Diarrhea) ofloxacin 0.3 % drops 1 drp ophthalmic (eye) QID gabapentin 300 mg capsule 300 mg PO BID folic acid 1 mg tablet 1 mg PO TID Tirosint 100 mcg capsule 100 mcg PO DAILY gabapentin 100 mg capsule 200 mg PO .AFTERNOON Discontinued aspirin 81 mg tablet,delayed release (DR/EC) 81 mg PO DAILY amiodarone 200 mg tablet 200 mg PO DAILY Qty: 90 3RF dabigatran etexilate [Pradaxa] 150 mg capsule 150 mg PO BID Qty: 180 3RF acetaminophen 650 mg Tablet Extended Release 650 mg PO Q4H PRN (Reason: Pain) No Action (DME) Back brace See Rx Instructions .Route .MEDSUPPLY Qty: 1 0RF Rx Instructions: Fit patient for brace (DME) doughnut cushion See Rx Instructions .Route .MEDSUPPLY Qty: 1 0RF Rx Instructions: As directed (DME) accommodative orthotic See Rx Instructions .Route .MEDSUPPLY Qty: 1 0RF Rx Instructions: As directed by [facility] Discharge Orders: Discharge Order (Routine); Ordered 12/01/23 Ordered By: Dav Wallace Referrals: [facility] [Outside] Alvarado Castellano MD [Physician] - 1 month (gi bleed please see instruction for this discharge /activity directions [facility] to schedule: We have notified your physician's clinic of the need for a follow-up appointment to be scheduled. If you have not heard from them within the next 2 business days, please call them directly. ) Toni Galvez MD [Physician] - 1 week (We have notified your physician's clinic of the need for a follow-up appointment to be scheduled. If you have not heard from them within the next 2 business days, please call them directly. [facility] to schedule.) Alexa Benavides, [employer] F[employer] [Primary Care Provider] - (We have notified your physician's clinic of the need for a follow-up appointment to be scheduled. If you have not heard from them within the next 2 business days, please call them directly. [facility] to schedule :) Brennen Rodrigues MD [Physician] - 1 month (hypoparahytoidism) Discharge Diet: Cardiac Discharge Activity: Resume usual activity Patient Instructions: GI Bleeding, Pacemaker (DC), Fall Prevention for Older Adults (DC), Hypotension (DC), Bradycardia (DC), Fall Prevention (DC), Opioid Safety, Post Pacemaker - Lenny Activity Restrictions/Additional Instructions: - Please avoid NSAIDs, take Protonix, Carafate for your anemia, slow GI bleed ? If you develop bloody or black stools please go to the emergency room, ?follow-up with general surgery in 1 month for consideration of EGD and colonoscopy ? Please have jail recheck your hemoglobin in 48 hours ? Follow-up with Dr. Galvez Discharge Attestations Time Spent in Discharge Care*: greater than 30 min Quality Metrics Clinical Quality Measures [ No reported AMI, CVA or VTE this stay] Coding Level of Care Code 66034 Total time (in minutes) for Discharge: 45 Diagnoses Bradycardia R00.1 Atrial fibrillation with rapid ventricular response I48.91 Atherosclerosis of [place] coronary artery of [place] heart without angina pectoris I25.10 Coronary Disease-Associated Artery/Lesion type: [place] artery Mixed hyperlipidemia E78.2 Hyperlipidemia type: mixed hyperlipidemia Peripheral arterial disease I73.9 Acute anemia D64.9
[2023-12-01] MEDS: amlodipine 10 mg Tablet PO (11:16)
[2023-12-01 11:46] LABS: SARS Covid-2 Antigen negative (Negative)
--- NOTE | 2023-12-01 12:21 | PC.NURSE ---
Report called to [facility]
--- NOTE | 2023-12-01 13:20 | PC.NURSE ---
PICC line and Foly removed
--- NOTE | 2023-12-01 16:10 | PC.NURSE ---
D/C instructions educated, patient left with Yumiko from [facility]
== END 2023-12-01 16:13 | disposition skilled nursing facility (03) | DRG 243 ==
LOC: ER 14:25 → ICU 15:10
PROVIDERS: Internal Medicine; Internal Medicine Cardiovascular Disease; Admitting Provider Family Medicine; Emergency Provider Family Medicine; PCP Registered Nurse; Visit Provider Family Medicine
PROC: 0JH604Z Insertion of Pacemaker, Single Chamber into Chest Subcutaneous Tissue and Fascia, Open Approach (ICD-10-PCS; principal; 2023-11-30 07:00)
DX: I49.5 Sick sinus syndrome (principal); E87.1 Hypo-osmolality and hyponatremia; I48.20 Chronic atrial fibrillation, unspecified; E87.20 Acidosis, unspecified; N17.9 Acute kidney failure, unspecified; I25.10 Atherosclerotic heart disease of native coronary artery without angina pectoris; M05.9 Rheumatoid arthritis with rheumatoid factor, unspecified; M41.20 Other idiopathic scoliosis, site unspecified; F41.9 Anxiety disorder, unspecified; F32.A Depression, unspecified; K21.9 Gastro-esophageal reflux disease without esophagitis; E78.2 Mixed hyperlipidemia; E55.9 Vitamin D deficiency, unspecified; E20.9 Hypoparathyroidism, unspecified; R19.5 Other fecal abnormalities; D64.9 Anemia, unspecified; E83.51 Hypocalcemia; I73.9 Peripheral vascular disease, unspecified; I10 Essential (primary) hypertension; I25.2 Old myocardial infarction; Z11.52 Encounter for screening for COVID-19; Z95.5 Presence of coronary angioplasty implant and graft; Z95.1 Presence of aortocoronary bypass graft; Z85.828 Personal history of other malignant neoplasm of skin; Z87.440 Personal history of urinary (tract) infections
CPT/HCPCS: 33207; 36415; 36416; 36430; 36573; 36592; 51702; 71045; 76770; 80048; 80053; 80061; 81001; 82274; 82306; 82310; 82330; 82962; 83036; 83605; 83690; 83735; 83880; 83970; 84100; 84145; 84443; 84484; 85014; 85018; 85025; 85610; 85730; 86140; 86850; 86900; 86920; 87040; 87426; 87486; 87493; 87581; 87633; 93005; 93306; 94640; 96365; 96367; 96375; 96376; 97116; 97162; 97166; 97168; 97530; 97535; 99152; 99153; 99285; A4216; C1769; C1779; C1786; C1894; C9113; J0360; J0610; J0612; J0690; J0696; J1265; J1644; J1815; J1940; J2185; J2250; J2405; J2765; J3010; J3370; J7030; J7040; J7050; J7070; J7613; P9016; Q3014; Q9967

== ENCOUNTER → 2023-12-23 13:53 | Outpatient (BNVA) | payer MEDICARE, OTHER, SELFPAY | PROVIDERS: PCP Registered Nurse; Visit Provider Nurse Practitioner Family | DX: Z95.0 Presence of cardiac pacemaker (principal) | CPT/HCPCS: 93288; 99024; 99213 ==

== ENCOUNTER → 2023-12-29 08:20 | Outpatient (BNVA) | payer MEDICARE, OTHER, SELFPAY | PROVIDERS: PCP Registered Nurse; Visit Provider Surgery | DX: K92.2 Gastrointestinal hemorrhage, unspecified (principal); I25.10 Atherosclerotic heart disease of native coronary artery without angina pectoris; Z95.0 Presence of cardiac pacemaker | CPT/HCPCS: 99205; 99215 ==

== ENCOUNTER → 2024-02-01 10:19 | Outpatient (BNVA) | payer OTHER, MEDICARE, SELFPAY | PROVIDERS: PCP Registered Nurse; Visit Provider Registered Nurse | DX: N39.0 Urinary tract infection, site not specified (principal) | CPT/HCPCS: 81000; 87086 ==

== ENCOUNTER → 2024-02-02 10:48 | Outpatient (BNVA) | payer OTHER, MEDICARE, SELFPAY | PROVIDERS: PCP Registered Nurse; Visit Provider Internal Medicine Cardiovascular Disease | DX: I25.10 Atherosclerotic heart disease of native coronary artery without angina pectoris (principal); I10 Essential (primary) hypertension; E78.2 Mixed hyperlipidemia; I73.9 Peripheral vascular disease, unspecified; Z95.0 Presence of cardiac pacemaker | CPT/HCPCS: 99214 ==

== ENCOUNTER → 2024-02-16 14:45 | Outpatient (BNVA) | payer OTHER, MEDICARE, SELFPAY | PROVIDERS: PCP Registered Nurse; Visit Provider Nurse Practitioner Family | DX: L57.0 Actinic keratosis (principal); Z85.820 Personal history of malignant melanoma of skin; Z85.828 Personal history of other malignant neoplasm of skin; L82.1 Other seborrheic keratosis; D22.5 Melanocytic nevi of trunk; L57.8 Other skin changes due to chronic exposure to nonionizing radiation; L81.4 Other melanin hyperpigmentation | CPT/HCPCS: 17000; 99213 ==

== ENCOUNTER → 2024-03-10 13:31 | Outpatient (BNVA) | payer OTHER, MEDICARE, SELFPAY | PROVIDERS: PCP Registered Nurse; Visit Provider Registered Nurse | DX: N39.0 Urinary tract infection, site not specified (principal) | CPT/HCPCS: 81000 ==

== ENCOUNTER → 2024-03-15 08:52 | Outpatient (BNVA) | payer OTHER, MEDICARE, SELFPAY | PROVIDERS: PCP Registered Nurse; Visit Provider Registered Nurse | DX: N39.0 Urinary tract infection, site not specified (principal) | CPT/HCPCS: 81000; 87086 ==

== ENCOUNTER → 2024-03-22 11:00 | Outpatient (BNVA) | payer OTHER, MEDICARE, SELFPAY | PROVIDERS: PCP Registered Nurse; Visit Provider Podiatrist Foot & Ankle Surgery | DX: M20.41 Other hammer toe(s) (acquired), right foot (principal); M20.42 Other hammer toe(s) (acquired), left foot; L60.3 Nail dystrophy; I73.9 Peripheral vascular disease, unspecified; M21.611 Bunion of right foot; M21.612 Bunion of left foot | CPT/HCPCS: 11721 ==

== ENCOUNTER → 2024-03-27 12:06 | Outpatient (BNVA) | payer OTHER, MEDICARE, SELFPAY | PROVIDERS: PCP Registered Nurse; Visit Provider Registered Nurse | DX: N39.0 Urinary tract infection, site not specified (principal) | CPT/HCPCS: 81000; 87086 ==

== ENCOUNTER 2024-04-17 11:32 | Outpatient (CLI) | payer MEDICARE, OTHER, SELFPAY ==
[2024-04-17 12:59] LABS: Basophils # 0.1 10^3/uL (0.0-0.1); Basophils % 0.8 %; Eosinophils # 0.2 10^3/uL (0.0-0.8); Eosinophils % 3.7 %; Hematocrit 34.3 % (36-47); Lymphocytes # 1.1 10^3/uL (0.8-4.8); Lymphocytes % 16.9 %; Mean Corpuscular Hemoglobin 29.4 pg (27-33); Monocytes # 0.5 10^3/uL (0.2-0.9); Monocytes % 7.7 %; Neutrophils # 4.42 10^3/uL (1.8-7.7); Neutrophils % 70.6 %; Nucleated Red Blood Cells % 0 %; Platelet Count 203 10^3/cmm (157-399); Red Cell Distribution Width 14.7 % (12.1-15.1); White Blood Count 6.26 10^3/uL (3.29-11.43)
[2024-04-17 13:07] LABS: Erythrocyte Sedimentation Rate 27 mm/hr (0-15)
[2024-04-17 13:20] LABS: Alanine Aminotransferase 6 U/L (0-33); Alkaline Phosphatase 140 U/L (35-105); Aspartate Amino Transferase 17 U/L (0-32); C Reactive Protein 6.5 mg/L (0.0-4.9); Globulin 3.1 g/dL (1.3-4.6); Total Bilirubin 0.3 mg/dL (0.15-1.2); Total Protein 7.1 g/dL (6.6-8.7)
== END 2024-04-17 11:33 | disposition home or self-care (01) ==
LOC: LAB 11:34
PROVIDERS: PCP Registered Nurse; Visit Provider Internal Medicine Rheumatology
DX: M81.0 Age-related osteoporosis without current pathological fracture (principal); M05.79 Rheumatoid arthritis with rheumatoid factor of multiple sites without organ or systems involvement; Z71.85 Encounter for immunization safety counseling; Z79.899 Other long term (current) drug therapy
CPT/HCPCS: 36415; 80076; 82565; 85025; 85651; 86140; 99214

== ENCOUNTER 2024-05-23 14:54 | Outpatient (CLI) | payer MEDICARE, OTHER, SELFPAY | END 2024-05-23 14:55 | disposition home or self-care (01) | LOC: LAB 14:54 | PROVIDERS: PCP Registered Nurse; Visit Provider Internal Medicine Rheumatology | DX: Z11.1 Encounter for screening for respiratory tuberculosis (principal) | CPT/HCPCS: 36415; 86480 ==

== ENCOUNTER → 2024-05-29 11:44 | Outpatient (BNVA) | payer MEDICARE, OTHER, SELFPAY | PROVIDERS: PCP Registered Nurse; Visit Provider Registered Nurse | DX: N39.0 Urinary tract infection, site not specified (principal) | CPT/HCPCS: 81000; 87086 ==

== ENCOUNTER → 2024-06-28 12:48 | Outpatient (BNVA) | payer MEDICARE, OTHER, SELFPAY | PROVIDERS: PCP Registered Nurse; Visit Provider Podiatrist Foot & Ankle Surgery | DX: M20.41 Other hammer toe(s) (acquired), right foot (principal); M20.42 Other hammer toe(s) (acquired), left foot; L60.3 Nail dystrophy; I73.9 Peripheral vascular disease, unspecified; D64.9 Anemia, unspecified | CPT/HCPCS: 11721 ==

== ENCOUNTER → 2024-07-12 10:56 | Outpatient (BNVA) | payer MEDICARE, OTHER, SELFPAY | PROVIDERS: PCP Registered Nurse; Visit Provider Internal Medicine Cardiovascular Disease | DX: I25.10 Atherosclerotic heart disease of native coronary artery without angina pectoris (principal); I50.9 Heart failure, unspecified; I10 Essential (primary) hypertension; E78.2 Mixed hyperlipidemia; Z95.0 Presence of cardiac pacemaker | CPT/HCPCS: 99214 ==

== ENCOUNTER → 2024-07-20 16:34 | Outpatient (BNVA) | payer MEDICARE, OTHER, SELFPAY | PROVIDERS: PCP Registered Nurse; Visit Provider Registered Nurse | DX: N39.0 Urinary tract infection, site not specified (principal) | CPT/HCPCS: 81000; 87086 ==

== ENCOUNTER → 2024-08-14 13:30 | Outpatient (BNVA) | payer MEDICARE, OTHER, SELFPAY | PROVIDERS: PCP Registered Nurse; Visit Provider Internal Medicine Rheumatology | DX: M81.0 Age-related osteoporosis without current pathological fracture (principal); M05.79 Rheumatoid arthritis with rheumatoid factor of multiple sites without organ or systems involvement; Z79.899 Other long term (current) drug therapy; Z71.85 Encounter for immunization safety counseling | CPT/HCPCS: 36415; 80076; 82306; 82310; 82565; 85025; 85651; 86140; 99214 ==

== ENCOUNTER 2024-09-27 13:15 | Outpatient (CLI) | payer MEDICARE, OTHER, SELFPAY ==
--- NOTE | 2024-09-27 13:00 | XR_ITS ---
WS: [id number] SCREENING DEXA SCAN [place] CLINICAL INFORMATION: M81.0 - Age-related osteoporosis without current patholog... COMPARISON: None. FINDINGS: S-shaped lumbar scoliosis. The L1-L4 bone mineral density measures 1.213 g/cm2. This corresponds to a T score score of 0.3 and Z score of 2.5. Left femoral neck bone mineral density measures 0.628 g/cm2. This corresponds to a T score of -3.0 an d Z score of -0.3. Right femoral neck bone mineral density measures 0.637 g/cm2. This corresponds to a T score -2.9of an d Z score of -0.2. Mean femoral neck bone mineral density measures 0.633 g/cm2. This corresponds to a T score of -3.0 an d Z score of -0.3. XR/XR DEXA axial skeleton* 96987 IMPRESSION: Normal bone mineralization lumbar spine. Osteoporosis femoral necks. Patient's FRAX calculated 10 year probability for major osteoporotic fracture i s 29.5% and osteoporotic hip fracture is 11.4%.
== END 2024-09-27 13:16 | disposition home or self-care (01) ==
LOC: RAD 13:16
PROVIDERS: PCP Registered Nurse; Visit Provider Internal Medicine Rheumatology
DX: M81.0 Age-related osteoporosis without current pathological fracture (principal)
CPT/HCPCS: 77080

== ENCOUNTER 2024-10-21 08:42 | Inpatient (IN) | payer MEDICARE, OTHER, SELFPAY ==
[2024-10-21] VITALS (37 sets, daily range): BP systolic 126–168; BP diastolic 49–100; PULSE 61–79; RESP 11–26; TEMP 36.7; O2SAT 92–100; BMI 21.3
--- NOTE | 2024-10-21 08:40 | PC.NURSE ---
To room at 0820 via stretcher by [facility] ambulance crew. Patient is AAOx4, VSS. Transferred to bed via 4 person lift assist. Patient has Amiodarone running at 1 mg/hr that was transferred to [facility] pump.
--- OUTSIDE RECORDS SUMMARY | 2024-10-21 08:46 | XMS_ITS | Patient Health Record ---
Author Organization [facility] Address [address] [place], [place] [address] Care Team Providers Care Retail Service Representative Name Role Phone Alexa Mccoy Primary Care Provider Unav Ciro Padilla MD Unavailable [phone] Valentin Santiago Unavailable Unavailable Allergies Allergen (clinical drug ingredient) Drug/Non Drug Allergy documented on EMR Reaction Allergy Type Onset Date Status Lactose lactose (uncoded) Unknown Allergy Ac tive sulfa (uncoded) Unknown Allergy Acti ve Reason For Referral No Information Medications Medication SIG (Take, Route, Frequency, Duration) Notes [...] orall y 2 times a day Active Social History Tobacco Use: Social History Observation Description Date Details (start date - stop date) Never Smoker NA - NA alcohol Question Answer Notes Did you have a drink containing alcohol in the p ast year? 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 analgesic (Z79.891) Active confirmed Problem Anxiety disorder (348855767) Other specified anxiety disorders (F41.8) Active confirmed Problem Hypersomnia (11186263) Hypersomnia, unspecified (G47.10) Active confirmed Problem Idiopathic scoliosis AND/OR kyphoscoliosis (95470509) Other idiopathic scoliosis, site unspecified (M41.20) Active confirmed 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, 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 Problem Neurogenic claudication (285158387) Spinal stenosis, lumbar region with neurogenic claudication (M48.062) Active confirmed Problem Pain in lumbar spine (112882702) Vertebrogenic low back pain (M54.51) Active confirmed Plan Of Treatment No Information Insurance Providers Payer Name Payer Address Payer Phone Subscriber Number Group Number Insured Name Patient Relationship to Insured Coverage Start Date Coverage End Date W[employer] Medicare Part B Claims Department [address] [address] [place] [address] [id number] Shanna Boucher Self - patient is the insured [employer] [address] [place] [address] [phone] [id number] Cainjohnnie garcia Shanna Self - patient is the insured Medical (General) History Medical History History ICD Code Chronic pain [...] Tonsillectomy Foot surgery, right Hysterectomy, performed in [place], [place] [address] Intestinal surgery, 1984 Open heart surgery, placement of stent, peformed in [place], [place], 2000 Heart stopped (Afib), performed in [place], [place], 2015 Placement of cardiac stent, performed in [place], [place], 2019
--- OUTSIDE RECORDS SUMMARY | 2024-10-21 08:46 | XMS_ITS | Encounter Summary ---
Author Organization [facility] Address [address] [place] [address] Care Team Providers Care Cardiovascular Technician Name Role Phone Coretta Mabry MD Primary Care Provider Encounter Details Date Type Department Care Team (Late Contact Info) Description 09/18/2024 Orders Only [address]tr[address], 3rd [place] [address] Gregoria Velazquez FNP [address] [address] Social History Tobacco Use Types Packs/Day Years Used Date Smoking Tobacco: Never Smokeless Tobacco: Never Alcohol Use Standard Drinks/Week Comments Never 0 (1 standard drink = 0.6 oz pur e alcohol) Feeling Safe Answer Date Recorded Are you in a relationship wi th someone who hurts you emotionally and/or physically? 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 Gender Identity Not on file Sexual Orientation Not on file documented as of this encounter Plan of Treatment Upcoming Encounters Date Type Department Care Team (Late Contact Info) Description 12/14/2024 1:30 PM CDT Office Visit [address]tr[address] [place] [address] Marielena Chong FNP [address] [place] [address] 03/01/2025 1:20 PM CDT Office Visit [facility] [place] [address] [place] [address] Boni Romo III, MD [address] [place] [address] documented as of this encounter Visit Diagnoses Not on filedocumented in this encounter Care Teams Cardiovascular Technician Relationship Specialty Start Date End Date Coretta Mabry MD [address] [facility] [address] [place] [address] PCP - General Family Practice 01/05/23 documented as of this encounter
--- OUTSIDE RECORDS SUMMARY | 2024-10-21 08:46 | XMS_ITS | Data Portability ---
Author Organization [facility] Kartik leeCuffed and Wanted TEN, [id number] [facility] Address [address] [place] [address] Care Team Providers Care Operations Systems Specialist Name Role Phone CHANTELL GRIFFITHS Referring Provider [phone] Assessment No assessment recorded. Plan of Treatment Reminders Order Date Submit Date Provider Last Modified By Organization Details Last Modified Time Details Appointments None recorded. Lab culture, urine 2020 021 GLENVIL [facility], [address] [place], [address], 13:37:46 culture, urine - Urine culture w/sensitiv ity 2017 018 Valderm [facility], [address], [address], [place], [address], 8 23:56:03 culture, urine - Urine culture w/sensitiv ity 2016 017 [facility], [address], [address], [place], [address], 7 00:07:59 Referral None recorded. Procedures None recorded. Surgeries None recorded. Imaging None recorded. Medication Orders methenamin e hippurate 1 gram tablet 2020 021 [facility], [facility] [place], [address], 09:56:00 methenamin e hippurate 1 gram tablet 2019 020 INTERFACE [facility], [facility] [place], [address], 0 12:01:17 Hiprex 1 gram tablet 2018 019 INTERFACE [id number] Paul Wall, [address] [place], [address], 9 18:15:28 Hiprex 1 gram tablet 2017 018 INTERFACE [facility], [address] [place], [address], 8 11:12:19 Hiprex 1 gram tablet 2016 017 [email or web address] [id number] Paul Wall, [address] [place], [address], 8 10:32:31 Patient TargetsNo targets recorded. Patient Instructions Encounter Date Encounter Id Patient Instructions Last Modified By Organization Details Last Modified Time 10/08/2016 [id number] frequent urinati on: care instructions Not available 10/08/2016 16:08:30 Continue with cu rrent meds. Adequate hydration. Urine culture sent today. F/U annually Not available 10/08/2016 16:08:30 09/28/2017 [id number] frequent urinati on: care instructions [email or web address] Not available 09/28/2017 11:12:16 Continue with cu rrent meds. Adequate hydration. Urine culture sent today. F/U annually [email or web address] Not available 09/28/2017 11:11:48 09/29/2018 [id number] frequent urinati on: care instructions [email or web address] Not available 10/01/2018 18:15:26 patient more concerned with GI upset today declined examination inquired if she thought the hiprex ma be contributing to GI upset; patient does not believe that it is. f/u prn as needed [email or web address] Not available 10/01/2018 18:17:42 12/06/2019 [id number] frequent urinati on: care instructions [email or web address] Not available 12/06/2019 12:01:15 bladder training : care instructions Not available 12/06/2019 12:01:15 kegel exercises: care instructions [email or web address] Not available 12/06/2019 12:01:15 Stress Incontine nce: Care Instructions [email or web address] Not available 12/06/2019 12:01:15 Urge Incontinenc e: Care Instructions [email or web address] Not available 12/06/2019 12:01:15 verbal consent obtained to conduct video conference telemedicine virtual visit. telemedcine virtual visit conducted with [employer] videoconferencing using [employer] patient will continue with present regimen advised patient to try decrease the dose to 1 tablet per day if she notices that her indigestion is worsening. continue with timed voiding patient has appointment scheduled with PCP today; asked the patient to have Dr. Dr. Chantell Griffiths to forward office notes to our office. f/u office visit in 3 months WedDec 06 2019 9:40:35 AM 9:58:22 AM 00:17:46 min [email or web address] Not available 12/06/2019 12:00:02 04/11/2021 [id number] She had been usi ng Hiprex daily. Decided to trial taking every other day and started having burning and frequency with urination. She resumed taking daily and the symptoms resolved. Urine culture done today. Hiprex refills prescribed for 1 year. This past year her and her son within 4 months of each other. She is planning to move to [place] to live with her son. Otherwise symptoms stable; no change in care plan [email or web address] Not available 04/12/2021 17:48:50 Reason for Referral None Reported. Results Created Date Observation Date Name Description Value Unit Range Abnormal Flag Note LastModifiedBy Organization Detail LastModifiedTime 10/08/19 17 10/10/2016 cultu re, urine culture, urine, routine SEE NOTE CULTU RE, URINE , ROUTI NE MICRO NUMBE R: [id number] TEST STATU S: FINAL SPECI MEN SOURC E: URINE SPECI MEN QUALI TY: ADEQU ATE RESUL T: Multi ple organ isms prese nt, each less than 10,00 0 CFU/m L. These organ isms, commo nly found on exter nal and inter nal genit doris, are consi dered to be colon izers . No furth er testi ng perfo rmed. Not Available [facility] [address], [place], [address], 10/10/2016 00:07:59 12/11/19 17 12/10/2016 cultu re, urine urine culture neg normal Not Available [email or web address] [address] [place], [address], 12/11/2016 14:53:29 09/28/19 18 09/30/2017 cultu re, urine culture, urine, routine SEE NOTE CULTU RE, URINE , ROUTI NE MICRO NUMBE R: [id number] TEST STATU S: FINAL SPECI MEN SOURC E: URINE SPECI MEN QUALI TY: ADEQU ATE RESUL T: No Growt h Not Available [facility] [address], [place], [address], 09/30/2017 23:56:03 04/11/20 21 04/14/2021 URINE CULTU RE, ROUTI NE urine culture, routine Final report Not Available [facility] ([facility]) [address] [place], [address], 04/14/2021 13:37:46 04/11/20 21 04/14/2021 URINE CULTU RE, ROUTI NE result 1 Commen t Mixed uroge nital mando 25,00 0-50, 000 colon y formi ng units per mL Not Available [facility] ([facility]) [address] [place], [address], 04/14/2021 13:37:46 Result Notes Documentation Provider Name and Address Organization Details Recorded Time Culture, Urine : Colonized Caryn Gray MD [address], [place], [address], [facility] - [facility], [facility] 09/28/2017 11:14:14 Culture, Urine + Sensitivity : uA- neg; urine culture - no growth Caryn Gray MD [address] [facility], [address], [place], [address] [place] [address], [facility], [facility] 09/28/2017 11:14:05 Culture, Urine : no growth Caryn Gray MD [address] [facility], [address], [place], [address] [place] [address], [facility], [facility] 09/28/2017 11:14:09 Culture, Urine : Neg Caryn Gray MD [address] [facility], [address], [place], [address] [place] [address], [facility], [facility] 10/01/2018 18:07:01 Culture, Urine : Mixed urogenital mando 25,000-50,000 colony forming units per mL Caryn Gray MD [address] [facility], [address], [place], [address] [place] [address], [facility], [facility] 04/14/2021 14:35:20 Problems Name Problem SNOMED Code Status Onset Date Resolution Date Notes Provider Name and Address Organization Details Recorded Time Chronic cystitis 27183310 Active MS. LIEN Wagoner0 Devika Soto [facility], [address], [place], [place], [address] [place] [address] 2, [facility], [facility] 7 14:39:53 Mixed urinary incontinence 145352388 Active MS. LIEN Soto [facility], [address], [place], [address] [place] [address] 2, [facility], [facility] 7 16:08:30 Urinary tract infectious disease 43698569 Active Maria G Ruiz (TERMED) [facility], [facility] 7 16:01:42 Increased frequency of urination 724746021 Active MS. 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 LIEN Soto [address], [address], [place], [address], [facility] 7 16:08:30 Dysuria 27542880 Active Maria G Pesante (TERMED) [facility] 7 16:01:42 Nocturia 986428282 Active Maria G Pesante (TERMED) [facility] 7 16:01:42 Vaginitis and vulvovaginitis Active Maria G Pesante (TERMED) [facility] 7 16:01:42 Incontinence of feces 13059872 Active Maria G Pesante (TERMED) [facility] 7 16:01:42 Lactose intolerance Active Maria G Pesante (TERMED) [facility] 7 16:01:42 Menopausal flushing 724964671 Active Maria G Pesante (TERMED) [facility] 7 16:01:42 Problem Notes None recorded. Procedures Surgical History Date Name Laterality Status Provider Name and Address Organization Details Recorded Time 09/18/19 16 Cardiac- Bypass completed Joyce hogan (TERMED) [facility] 10/22/2015 10:12:48 09/06/19 06 ROUTE SERVICE REPRESENTATIVE- Pelvic Prolapse Surgery completed MS. ADI ALLISON DIRECTOR OF RESTAURANT [address], [address], [place], [address], [facility] 02/15/2013 14:04:48 09/06/19 01 Cardiac- Bypass completed MS. ADI ALLISON DIRECTOR OF RESTAURANT [address], [place], [address], [facility] 02/15/2013 14:04:48 09/06/18 95 Surgery-Other completed MS. ADI ALLISON DIRECTOR OF RESTAURANT [address], [place], [address], [facility] 02/15/2013 14:04:48 09/06/18 94 Surgery-Other completed MS. ADI ALLISON DIRECTOR OF RESTAURANT [address], [place], [address], [place] [facility] 02/15/2013 14:04:48 09/06/18 93 Surgery-Other completed MS. ADI ALLISON DIRECTOR OF RESTAURANT [address], [place], [address], [facility] 02/15/2013 14:04:48 09/06/18 72 ROUTE SERVICE REPRESENTATIVE- Hysterectomy, Vaginal completed MS. ADI ALLISON DIRECTOR OF RESTAURANT [address], [place], [address], [facility] 02/15/2013 14:04:48 ROUTE SERVICE REPRESENTATIVE-Urinary Incontinence Surgery completed Not Available [email or web address] 04/11/2021 09:27:07 Imaging Results None recorded. Procedure Notes None recorded. Medical Equipment None Reported. Allergies Allergen ID Allergen Name Allergen Category Reaction Reaction Severity Criticality Documentation Date Start Date Code Code System Note Provider Name and Address Organization Details Recorded Time 19680111 Substance with sulfonami de structure and antibacte rial mechanism of action (substanc e) medicatio n vomiting Not available Not available 02/15/2013 92998 8003 SNOMED Helena Arriaga (TERMED) [facility] 3 11:27:54 942797 nitrofura ntoin medicatio n respirato ry distress Not available Not available 02/15/2013 7454 RxNorm Helena Arriaga (TERMED) [facility] 3 11:27:54 072630 phenazopy ridine medicatio n vomiting Not available Not available 02/15/2013 8120 RxNorm Helena Arriaga (TERMED) [facility] 3 11:27:54 776651 hyoscyami ne medicatio n other Not available Not available 02/15/2013 87353 0 RxNoramon Helena Arriaga (TERMED) [facility] 3 11:27:54 132775 trimethop rim medicatio n rash Not available Not available 10/08/2016 27050 RxNorm MS. LIEN SMITH CARD CLOTHIER [address] [facility], [address], [place], [address] [place] [address] - [facility] 7 15:55:36 Medications Name Sig Start Date Stop Date Status Note LastModified by Organization Details LastModified Time amoxicill in 500 mg capsule TAKE ONE CAPSULE BY MOUTH FOUR TIMES A DAY FOR 7 DAYS 04/11 completed Not Available Not Available Not Available Ecotrin Low Strength 81 mg tablet,en teric coated Take 1 tablet every day by oral route. 04/11 completed Not Available Not Available Not Available prednison e 10 mg tablet 12/05 completed Not Available Not Available Not Available doxycycli ne hyclate 100 mg capsule TAKE ONE CAPSULE BY MOUTH TWICE A DAY 12/05 completed Not Available Not Available Not Available Iron (ferrous sulfate) 325 mg (65 mg iron) tablet Take by oral route. 09/29 completed Not Available Not Available Not Available benzonata te 200 mg capsule active Not Available Not Available Not Available hydrocodo ne 5 mg-acetam inophen 325 mg tablet TAKE 1/2 TABLET BY MOUTH EVERY 6 HOURS NEEDED FOR PAIN active Not Available Not Available No t Available meloxicam 15 mg tablet TAKE ONE TABLET BY MOUTH ONE TIME DAILY WITH FOOD active Not Available Not Available No t Available promethaz ine 12.5 mg tablet TAKE ONE TABLET BY MOUTH EVERY 4 HOURS NEEDED active Not Available Not Available No t Available simvastat in 10 mg tablet active Not Available Not Available Not Available prednison e 5 mg tablet active Not Available Not Available Not Available clindamyc in HCl 150 mg capsule TAKE ONE CAPSULE BY MOUTH FOUR TIMES A DAY 04/11 completed Not Available Not Available Not Available Nexium 40 mg capsule,d elayed release Take 1 capsule every day by oral route. active Not Available Not Available No t Available acetamino phen 300 mg-codein e 30 mg tablet TAKE ONE TABLET BY MOUTH EVERY 4 TO 6 HOURS NEEDED 04/11 completed Not Available Not Available Not Available trimethop rim 100 mg tablet TAKE 1 TABLET AT BEDTIME 2014 active Not Available Not Available Not Avai lable omeprazol e 40 mg capsule,d elayed release Take 1 capsule every day by oral route. active Not Available Not Available No t Available tramadol 50 mg tablet TAKE ONE TABLET BY MOUTH ONE TIME DAILY NEEDED active Not Available Not Available No t Available simvastat in 40 mg tablet 09/28 completed Not Available Not Available Not Available ondansetr on 8 mg disintegr ating tablet Place 1 tablet every 8 hours by translin gual route for 2 days. 09/29 completed Not Available Not Available Not Available levothyro xine 75 mcg tablet 04/11 completed Not Available Not Available Not Available nystatin- triamcino lone 100,000 unit/gram -0.1 % topical ointment APPLY TO THE AFFECTED AREA(S) BY TOPICAL ROUTE 2 TIMES PER DAY active Not Available Not Available No t Available levothyro xine 88 mcg tablet Take 1 tablet every day by oral route. active Not Available Not Available No t Available methenami ne hippurate 1 gram tablet TAKE ONE TABLET BY MOUTH TWICE A DAY 2020 active Not Available Not Available Not Avai lable amoxicill in 875 mg tablet 12/05 completed Not Available Not Available Not Available Celebrex 100 mg capsule Take 1 capsule twice a day by oral route. active Not Available Not Available No t Available methotrex ate sodium 2.5 mg tablet active Not Available Not Available Not Available ciproflox acin 0.3 % eye drops INSTILL ONE DROP INTO THE LEFT EYE FOUR TIMES DAILY 09/28 completed Not Available Not Available Not Available cephalexi n 500 mg capsule 12/05 completed Not Available Not Available Not Available simvastat in 20 mg tablet 09/28 completed Not Available Not Available Not Available erythromy tristian 5 mg/gram (0.5 %) eye ointment APPLY TO INNER EYELIDES OF BOTH EYES EVERY NIGHT 12/05 completed Not Available Not Available Not Available ranitidin e 150 mg tablet TAKE ONE TABLET BY MOUTH ONE TIME DAILY 12/05 completed Not Available Not Available Not Available methotrex ate sodium 7.5 mg tablet Take 1 tablet every week by oral route. active once weekly Not Available Not Available Not Available lisinopri l 10 mg tablet TAKE ONE TABLET BY MOUTH EVERY DAY active Not Available Not Available No t Available nitroglyc marlin 400 mcg/spray transling ual active Not Available Not Available Not Available folic acid 1 mg tablet active Not Available Not Available Not Available fluoroura cil 0.5 % topical cream APPLY TO AFFECTED AREA(S) ON FACE ONE TIME DAILY 09/28 completed Not Available Not Available Not Available lisinopri l 5 mg tablet 04/11 completed Not Available Not Available Not Available mupirocin 2 % topical ointment APPLY TO AFFECTED AREA(S) SPARINGL Y TWO TIMES A DAY NEEDED active Not Available Not Available No t Available Monurol 3 gram oral packet Take 1 packet as needed by oral route as needed for 1 day. 02/22 completed Not Available Not Available Not Available hydrocort isone butyrate 0.1 % topical cream APPLY TO AFFECTED AREA(S) OF RASH ON ARMS TWO TIMES A DAY 09/28 completed Not Available Not Available Not Available metoprolo l succinate ER 25 mg tablet,ex tended release 24 hr Take 1 tablet every day by oral route. active Not Available Not Available No t Available Cipro 250 mg tablet Take 1 tablet twice a day by oral route for 10 days. 2014 active Not Available Not Available Not Avai lable Estrace 0.01% (0.1 mg/gram) vaginal cream Insert 1 g twice a week by vaginal route at bedtime. 2012 active Not Available Not Available Not Avai lable cyclobenz aprine 5 mg tablet TAKE ONE TABLET BY MOUTH THREE TIMES A DAY NEEDED FOR MUSCLE SPASM 04/11 completed Not Available Not Available Not Available Premarin 0.3 mg tablet Take 1 tablet every day by oral route. active Not Available Not Available No t Available Metamucil Plus Calcium 1 gram-60 mg capsule Take by oral route. active Not Available Not Available No t Available magnesium active Not Available Not Vicenta ilable Not Available Vitamin C 09/28 completed Not Available Not Available Not Available cranberry active Not Available Not Vicenta ilable Not Available Fish Oil active Not Available Not Avai lable Not Available nitroglyc marlin 09/29 completed Not Available Not Available Not Available folic acid active Not Available Not Available Not Available Calcium 600 active Not Available Not Available Not Available Synthroid 09/29 completed Not Available Not Available Not Available capsicum (cayenne) active Not Available Not Available No t Available multivita min active Not Available Not Available Not Available Ranexa 500 mg tablet,ex tended release Take 1 tablet twice a day by oral route. active Not Available Not Available No t Available Vitamin D3 10 mcg (400 unit) capsule active Not Available Not Available Not Available tramadol ER 200 mg tablet,ex tended release 24 hr 09/28 completed Not Available Not Available Not Available Durezol 0.05 % eye drops INSTILL ONE DROP INTO THE LEFT EYE FOUR TIMES DAILY (BEGIN AFTER SURGERY) 09/29 completed Not Available Not Available Not Available Multaq 400 mg tablet TAKE ONE TABLET BY MOUTH TWICE A DAY WITH A MEAL active Not Available Not Available No t Available prasugrel HCl 10 mg tablet active Not Available Not Available Not Available Effient 5 mg tablet 09/29 completed Not Available Not Available Not Available Nitromist 400 mcg/spray transling ual aerosol 12/05 completed Not Available Not Available Not Available Probiotic active Not Available Not Vicenta ilable Not Available Brilinta 90 mg tablet Take 1 tablet twice a day by oral route. active Not Available Not Available No t Available metoprolo l succ 25 mg-hydroc hlorothia zide 12.5 mg tablet,ex t.rel 24 hr Take 1 tablet every day by oral route. 09/29 completed Not Available Not Available Not Available methotrex ate 2.5 mg tablet 7 pills on ys active Not Available Not Available No t Available Fish Oil with Krill active Not Available Not Available Not Available Calmosept ine 0.44 %-20.6 % topical ointment in packet Apply by topical route. 2014 active samples Not Available Not Available Not Avai lable Myrbetriq 25 mg tablet,ex tended release Take 1 tablet every day by oral route. 2012 active Not Available Not Available Not Avai lable Ilevro 0.3 % eye drops,michael pension INSTILL 1 DROP INTO THE LEFT EYE ONCE DAILY, STARTING 1 DAY BEFORE SURGERY. 09/29 completed Not Available Not Available Not Available Eliquis 2.5 mg tablet active Not Available Not Available Not Available Repatha SureClick 140 mg/mL subcutane ous pen injector active Not Available Not Available Not Available Humira(CF ) 40 mg/0.4 mL subcutane ous syringe kit active Not Available Not Available Not Available Fluad 65yr up(PF)45 mcg(15 mcgx3)/0. 5 mL intramusc ular syringe INJECT 0.5ML INTRAMUS CULARLY ONCE active Not Available Not Available No t Available Vitals Date Recorded Body height Provider Name an d Address Organization Details Last Updated DateTime 10/08/2016 154.94 cm Helena Arriaga (TERMED) [facility] 10/08/2016 15:34:55 Date Recorded Body mass index (BMI) Body weight Heart rate Systolic blood pressure Diastolic blood pressure Provider Name and Address Organization Details Last Updated DateTime 10/08/2016 24.6 kg/m2 95835.00 81 g 76 /min 122 mm[Hg] 82 mm[Hg] Maria G Ruiz (TERMED) [facility] 7 15:39:26 Date Recorded Body height Body mass index (BMI) Body weight Heart rate Systolic blood pressure Diastolic blood pressure Provider Name and Address Organization Details Last Updated DateTime 8 154.94 cm 24.2 kg/m2 60372.8 2 g 68 /min 128 mm[Hg] 62 mm[Hg] Jennifer Jairo (TERMED) [facility] 8 10:27:51 Date Recorded Body height Body mass index (BMI) Body weight Body temperature Systolic blood pressure Diastolic blood pressure Provider Name and Address Organization Details Last Updated DateTime 1 154.94 cm 21.5 kg/m2 30693.5 3 g 97.7 [degF] 110 mm[Hg] 80 mm[Hg] Farida Jordan (termed) [facility] 1 09:43:58 Social History Question Answer Notes LastModified by Organizat ion Details LastModified Time Tobacco Smoking Status Never Smoker Helena Arriaga (TERMED) [facility] 02/15/2013 11:27:54 Do You Have An Advance Directive? No Information not available 04/11/2021 What Is Your Level Of Alcohol Consumption? None Information not available 02/15/2013 Are You Currently Sexually Active With Anyone Who Has Traveled (within The Last 12 Weeks) To A Zika-affected Area? No Information not available 04/11/2021 Are You Blind Or Do You Have Difficulty Seeing? No [email or web address] Information not available 04/11/2021 Is Blood Transfusion Acceptable In An Emergency? Yes Information not available 09/29/2018 What Is Your Level Of Caffeine Consumption? Occasional Information not available 02/15/2013 In The 14 Days Before Symptom Onset, Have You Had Close Contact With A Laboratory-confir med COVID-19 While That Case Was Ill? No Information not available 04/11/2021 In The 14 Days Before Symptom Onset, Have You Had Close Contact With A Person Who Is Under Investigation For COVID-19 While That Person Was Ill? No Information not available 04/11/2021 Have You Been To An Area Known To Be High Risk For COVID-19? No Information not available 04/11/2021 Are You Currently Employed? No Information not available 04/11/2021 Are You Deaf Or Do You Have Serious Difficulty Hearing? No [email or web address] Information not available 04/11/2021 What Type Of Diet Are You Following? REGULAR [email or web address] Information not available 04/11/2021 Are There Any Guns Present In Your Home? No [email or web address] Information not available 04/11/2021 Illicit Drugs? No [email or web address] Info rmation not available 07/18/2013 Illicit Drugs Pre-? No Information not available 04/11/2021 What Is Your Occupation? No Information not available 04/11/2021 Smoking Pre-? No Information not available 04/11/2021 History Of Domestic Violence No Information no t available 04/12/2021 Marital Status [email or web address] Informatio n not available 04/12/2021 What Was The Date Of Your Most Recent Tobacco Screening? 04/11/2021 Information not available 04/11/2021 What Is Your Relationship Status? Information not available 04/11/2021 Do You Use Your Seat Belt Or Car Seat Routinely? Yes Information not available 04/11/2021 Seat Belts Used Routinely Yes [email or web address] Information not available 04/11/2021 Are You Sexually Active? No Information not available 04/11/2021 Smoke Alarm In Home Yes [email or web address] Information not available 04/11/2021 Do You Have Smoke And Carbon Monoxide Detectors In Your Home? No Information not available 04/11/2021 How Much Tobacco Do You Smoke? No Information not available 02/15/2013 General Stress Level Medium [email or web address] Information not available 04/11/2021 Do You Use Any Illicit Or Recreational Drugs? No Information not available 04/11/2021 Do You Use Sunscreen Routinely? No Information not available 04/11/2021 Has Tobacco Cessation Counseling Been Provided? No Information not available 04/11/2021 Do You Have Symptoms Associated With Zika Virus (fever, Rash, Joint Pain, Or Conjunctivitis)? No [email or web address]-251 Information not available 04/11/2021 Have You Recently (within The Last 12 Weeks, Or During A Current ) Traveled To Or Lived In A Zika-affected Area? No [email or web address]-251 Information not available 04/11/2021 Do You Or Have You Ever Used Any Other Forms Of Tobacco Or Nicotine? No [email or web address] Information not available 04/12/2021 Sex: Unknown Functional Status Question Answer Note LastModified by Organizat ion Details LastModified Time Do you have difficulty walking or climbing stairs? No [email or web address] Information not available 04/11/2021 Urinary incontinence assessment performed? No [email or web address] Information not available 04/11/2021 Are you able to walk? YESASSIST Information not available 04/11/2021 Do you have difficulty doing errands alone? No [email or web address] Information not available 04/11/2021 Do you have difficulty dressing or bathing? No [email or web address] Information not available 04/11/2021 What is your exercise level? Moderate [email or web address] Information not available 04/11/2021 Mental Status Question Answer Note LastModified by Organization D etails LastModified Time Do you have difficulty concentrating, remembering or making decisions? No [email or web address] Information no t available 04/11/2021 Family History Relationship Description Onset Age of this Age Resolved Age Notes LastModified by Organization Details LastModified Time Mother Hypertensive disorder previo usly record ed as High Blood Pressu re [email or web address] Not available 04/11/2021 09:27:07 Mother Diabetes mellitus [email or web address] Not available 2020 09:27:07 Mother Heart disease [email or web address] Not available 2020 09:27:07 Brother Hypertensive disorder previo usly record ed as High Blood Pressu re [email or web address] Not available 04/11/2021 09:27:07 Father Disorder of thyroid gland previo usly record ed as Thyroi d Diseas e [email or web address] Not available 04/11/2021 09:27:07 Father Malignant neoplastic disease prosta te (previ ously record ed as Cancer -Other ) epesante Not available 10/08/2016 15:40:43 Father Heart disease [email or web address] Not available 2020 09:27:07 Father Hypertensive disorder previo usly record ed as High Blood Pressu re [email or web address] Not available 04/11/2021 09:27:07 Medical History Condition Response Neurology- Memory Loss/Dementia N Neurology- Stroke/TIA N Dermatology-Acne N Cancer- Genetic Screening N Endocrinology- Vitamin Deficiency N Endocrinology-Other N Hematology-Anemia Y Cardiology- Atrial fib/atrial flutter N Nephrology-Renal Disease N Neurology- Seizures/Epilepsy N Cardiology- Heart Attack N Ortho-Fractures N Endocrinology- Prolactinoma N Urology- Recurrent Urinary Tract Infecti ons Y Pulmonary- Seasonal Allergies/Allergic R hinitis N Psych- PMS/PMDD N Pulmonary-Other N Pulmonary- Lung Disease N Endocrinology- Glucose Intolerance/Insul in Resistance N Psych- Anxiety Disorder N GI- Reflux/Ulcers N Rheumatology-Arthritis Y ID-Chicken Pox/Shingles N Cancer- Skin Y GI- Irritable Bowel Syndrome N Cardiology- Heart Disease Y ID-HIV N GI- Colon Polyps Y Endocrinology- Osteopenia N Endocrinology- Elevated Prolactin N ID-Other N Psych- Eating Disorder N Ortho- Arthritis N Urology- Urinary Incontinence N Hematology-Blood Transfusion N Pulmonary- Asthma N Urology- Hematuria (Blood in Urine) N Pulmonary- Sleep Apnea N Neurology- Dementia N Urology- Interstitial Cystitis N Endocrinology- Hypothyroidism Y Eyes-other Y Neurology- Multiple Sclerosis N GI- Hemorrhoids Y Hematology-Blood Clotting Disorder/Facto r V Leiden N ID- Rheumatic Fever N Neurology-Other N Endocrinology- Osteoporosis Y Psych- Depression Y Do you have any current or past medical conditions? Y Hematology-Other N Dermatology-Eczema/Psoriasis N Dermatology-Other N ID- Tuberculosis/Positive PPD N Ortho-Chronic Back Pain N Rheumatology-Autoimmune Disease N Cancer- Ovary N Cardiology- High Cholesterol Y Cardiology- Heart Arrhythmia N Urology- Kidney or Bladder Problems N Hematology-DVT/Pulmonary Embolism N Psych-other N Endocrinology- Hyperthyroidism N Endocrinology- Thyroid Problems N Ortho-other N Other infectious diseases N Cancer- Breast N Psych- ADD N ID- Herpes N GI- Liver Disease/Hepatitis N Weight Management/Obesity N Cancer- Colon N ENT- Hearing Loss N Cancer- Vulvar N Cancer- Vaginal N GI-Other N Hematology-Bleeding Disorder N Neurology- Headaches/Migraines N Endocrinology- Diabetes N Cancer- Cervical N Pulmonary- COPD/Emphysema N GI- Vitamin Deficiency N Endocrinology- History of Gestational Di abetes N GI- Crohn's/Ulcerative Colitis N Psych- Bipolar Disease N Cardiology- High Blood Pressure Y ENT- Seasonal Allergies/Allergic Rhiniti s N Cancer- Lung N Cancer- Endometrial/Uterine N Eyes- Glaucoma N Urology- Kidney Disease N ENT-Other N Eyes- Vision Loss/Macular Degeneration N Rheumatology-Other N Cardiac- Aneurysm N Urology- Kidney Infection N Cardiology- Heart Murmur/Mitral Valve Pr olapse N Urology- Stones N ID-MRSA N Cancer-Other N GI- Gallbladder Disease N Gynecological History Statement/Question Response ? Date of LMP HPV Test Not applicable 2011 Post Menopausal Hormone Use Current User Sexual orientation Heterosexual 18 History of Endometriosis N 11 Y n/a History of Sexually Transmitted Infectio n N History of Infertility N HPV Vaccine Not applicable Date of last bone density 06/2012 History of Recurrent Ovarian Cyst N What is the patient? s current relationship to the practice? Evaluation and Treatment History of Vulvar Dysplasia N History of Fibroids N History of PCOS N History of Dysmenorrhea N 01/2013 Y Age at Menarche 13 History of Cervical Dysplasia N Diethylstilbestrol (CESAR) exp osed daughters of women who took CESAR during ? N Sexually active N Current Control Method: None Date of Last Pelvic Ultrasound n/a History of abnormal PAP N Obstetrics History GPAL:G 4 P 3 0 1 3 Type Value Full Term 3 Spontaneous 1 Premature 0 Living 3 Total 4 Immunizations Vaccine Type Date Status Note Provider Nam e and Address Organization Details Recorded Time Pneumococcal Conjugate, unspecified formulation 1 completed Farida Jordan (termed) [facility] [employer] [facility] 04/11/2021 08:36:16 Influenza, high-dose, trivalent, PF 3 completed Farida Jordan (termed) [facility] [employer] [facility] 04/11/2021 08:36:17 Influenza, high-dose, trivalent, PF 3 completed Caryn Gray MD [address] [facility], [address], [place], [address] [place] [address], [facility], [facility] 10/01/2018 18:09:30 Influenza, high-dose, trivalent, PF 6 completed Not Available [facility] 10/07/2019 02:13:31 Influenza, high-dose, trivalent, PF 6 completed Not Available [facility] 10/07/2019 02:13:31 Influenza, high-dose, trivalent, PF 7 completed Caryn Gray MD [address] [facility], [address], [place], [address] [place] [address], [facility], [facility] 10/01/2018 18:11:45 Influenza, high-dose, trivalent, PF 8 completed Caryn Gray MD [address] [facility], [address], [place], [place], [address] [place] [address], [facility], [facility] 10/01/2018 18:12:42 Influenza, adjuvanted, trivalent, PF 9 completed [facility] [address] [facility] [address], [place], [address] [place] [address], [facility], [facility] 12/06/2019 11:50:18 Influenza, split virus, quadrivalent, preservative 9 completed Caryn Gray MD [address] [facility], [address], [place], [address] [place] [address], [facility], [facility] 12/06/2019 11:50:18 Influenza, split virus, trivalent, preservative 4 completed Not Available [facility] 10/07/2019 02:12:14 Influenza, split virus, trivalent, PF 4 completed Joyce munoz (TERMED) [facility], [facility] 10/22/2015 10:25:32 Influenza, high-dose, trivalent, PF 5 completed Not Available [facility] 10/07/2019 02:12:20 Pneumococcal conjugate PCV 13 5 completed Not Available [facility] 10/07/2019 02:12:14 Influenza, split virus, trivalent, preservative 9 completed Joyce Silvino-Gere na (TERMED) [facility] 10/22/2015 10:25:32 Influenza, split virus, trivalent, preservative 4 completed Joyce Silvino-Gere na (TERMED) [facility] 10/22/2015 10:25:32 Influenza, split virus, trivalent, preservative 0 completed Joyce Silvino-Gere na (TERMED) [facility] 10/22/2015 10:25:32 Influenza, split virus, trivalent, preservative 2 completed Joyce Silvino-Gere na (TERMED) [facility] 10/22/2015 10:25:32 Past Encounters Encounter ID Performer Location Encounter Start Date Encounter Closed Date Diagnosis/Indication Diagnosis SNOMED-CT Code Diagnosis ICD10 Code Diagnosis Note [id number] MS. ADI ALLISON DIRECTOR OF [employer]AURANT [id number] [place] (CLOSED) [address],[place] [address] 02/15/2013 10:44:37 02/15/2013 12:40:05 [id number] Joyce Dubois- Timmy (TERMED) [id number] [place] (CLOSED) [address],[place] [address] 03/01/2013 14:55:35 03/01/2013 16:01:04 [id number] Joyce Silvino- Timmy (TERMED) [id number] [place] (CLOSED) [address],[place] [address] 03/29/2013 14:28:49 03/29/2013 15:58:49 [id number] Joyce Dubois- Timmy (TERMED) [id number] [place] (CLOSED) [address],[place] [address] 05/11/2013 14:09:17 05/11/2013 15:27:54 [id number] Joyce Warner (TERMED) [id number]. [address] (CLOSED) 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 Atrophic vulva 737976405 [id number] Joyce Warner (TERMED) [id number] [address] [place] [id number] 01/02/2014 11:07:06 01/02/2014 12:00:23 Chronic cystitis 79340060 Increased frequency of urination 939428133 Atrophic vulva 782574268 [id number] Joyce Warner (TERMED) [id number] [address] [facility] [place] [address] 2 09/18/2014 15:37:29 09/18/2014 16:42:00 Urinary tract infectious disease 69990396 chronic cystitis Increased frequency of urination 086832831 Incontinence of feces 51090453 [id number] [address] [facility] [place], [place] [address] 10/16/2014 13:35:23 10/16/2014 14:40:05 Incontinence of feces 03520548 Mixed urin zhane incontinence 906383826 Atrophic vulva 710970867 [id number] [address] [facility] [place], [place] [address] 12/06/2014 13:29:45 12/06/2014 14:29:30 Incontinence of feces 19785246 Mixed urin zhane incontinence 493230796 [id number] Caryn Gray MD [id number] [address] [facility] [place] [id number] 10/22/2015 09:45:47 10/22/2015 10:52:41 Chronic cystitis 18467768 N30.20 Atrophic vulva 250708443 N90.5 Vaginitis and vulvovaginitis 962824814 N77.1 Lactose intolerance 2674 13949 E73.9 Menopausal flushing 1983 78915 N95.1 [id number] Caryn Gray MD [id number] [address] [facility] [address] [place] [address] 2 10/08/2016 15:26:56 10/08/2016 16:06:46 Chronic cystitis 85147830 N30.20 Atrophic vulva 564871837 N90.5 Increased frequency of urination 433522242 R35.0 Mixed urin zhane incontinence 246013761 N39.46 [id number] Caryn Gray MD [id number] [address] [facility] [address] [place] [address] 2 09/28/2017 09:59:01 09/28/2017 11:13:31 Chronic cystitis 51432127 N30.20 Atrophic vulva 620200716 N90.5 Increased frequency of urination 373532283 R35.0 Mixed urin zhane incontinence 028763018 N39.46 [id number] Caryn Gray MD [id number] [address] [facility] [place] [address] 2 09/29/2018 14:55:07 09/29/2018 15:53:41 Chronic cystitis 32210293 N30.20 Increased frequency of urination 805889125 R35.0 Mixed urin zhane incontinence 956277491 N39.46 [id number] Caryn Gray MD [id number] [address] [facility] [address] [place] [address] 2 12/06/2019 09:59:34 12/06/2019 10:05:57 Increased frequency of urination 349251406 R35.0 Mixed urin zhane incontinence 844647450 N39.46 Chronic cystitis 1653474 2 N30.20 [id number] Caryn Gray MD [id number] [address] [facility] [place] [address] 2 04/11/2021 09:12:52 04/11/2021 09:48:20 Mixed urinary incontinence 293596835 N39.46 Increased frequency of urination 107661840 R35.0 Chronic cystitis 3500778 2 N30.20 Health Concerns Section Related Observation LastModified by Organization Detai ls LastModified Time None Recorded Concern Status LastModified by Organization Details LastModified Time None Recorded Advance Directives Directive N: Payers Encounter Date Sequence Insurance Name Policy Number Policy Mon Covered Member ID Mon Member ID Guarantor Name 10/08/2016 2 [employer] - FOR LIFE (MEDICARE SUPPLEMENT) Benjamin Lang [id number] Shanna A Lang 10/08/2016 [place] Shanna A Lang [id number] Shanna A Lang 09/28/2017 2 [employer] - FOR LIFE (MEDICARE SUPPLEMENT) Benjamin Lang [id number] Shanna A Lang 09/28/2017 [place] Shanna Kt AburtoLang [id number] Shanna A Lang 09/29/2018 2 [employer] - FOR LIFE (MEDICARE SUPPLEMENT) Benjamin Lang [id number] Shanna A Lang 09/29/2018 [place] Shanna A Lang [id number] Shanna A Lang 12/06/2019 2 [employer] - FOR LIFE (MEDICARE SUPPLEMENT) Benjamin Lang [id number] Shanna A Lang 12/06/2019 1 [place] Shanna Kt AburtoLang [id number] Shanna A Lang 04/11/2021 2 [employer] - FOR LIFE (MEDICARE SUPPLEMENT) Benjamin Lang [id number] Shanna A Lang 04/11/2021 1 [place] Shanna A Lang [id number] Shanna A Lang Notes Date Note Type Note Provider Name and Address Organization Details Recorded Time 09/29/2018 text/html F/u on cystitis and refill on Hiprex, pt reports bowel flare with diarrhea. Simin Arias change in symptoms; PCP following urine cultures as needed.verifed and scribed for MD Caryn Ge MD [address], [address], [place], [address], [facility] [employer] 10/01/2018 18:20:16 12/06/2019 text/html verbal consent obtained to conduct video conference telemedicine virtual visit.COVID -19 high risk population age 65 and older with chronic medical conditions. The patient presents for f/u on chronic cystitis and needs a refill on Hiprex.She has tried to decrease the dose to one tablet per day but notes recurrence of UTI like symptoms after 2 weeks. treated for UTI once last year otherwise doing well. MD Caryn Ge MD [address] [facility], [address], [place], [address], [facility] [employer] 12/06/2019 12:01:23 04/11/2021 text/html 85 y.o. Patient here to f/u on chronic cystitis and requesting refills for suppressive therapy. Patient planning to move to [place] in the next few months. Her in May 2020. Inna Juarez ed and scribed for LOBITO Gonzalez MD [address] [facility], [address], [place], [address], [facility] [employer] 04/12/2021 17:49:24 OBGyn Episode No OBEpisode recorded.
--- OUTSIDE RECORDS SUMMARY | 2024-10-21 08:46 | XMS_ITS | Continuity of Care Document ---
Author Name [facility] Organization [facility] Care Team Providers Care Ride Assembly Supervisor Name Role Phone [facility] Unavailable Unavailable Medications Combined list of outpatient medications from Department of Defense and Veterans Affairs facilities.Medications provided include 1) outpatient medications from the last 15 months, and 2) patient-reported medications. Medication Details Route Status Patient Instructions Prescription Expires Prescription Number Last Dispense Date Ordering Provider Order Date Order Qty Source AMLODIPINE BESYLATE (amlodipine besylate), 10 MG, TABLET, ORAL, [facility], 1000 ea. BOTTLE Active [id number] 2023 30 Pharmac y Data Transac tion Service Facilit y AMOX TR-POTASSIU M CLAVULANATE (AMOXICILLI N/POTASSIUM CLAV), 500-125 MG, TABLET, ORAL, AUROBINDO [facility], 20 ea. BOTTLE Active [id number] 4 2023 14 Pharmac y Data Transac tion Service Facilit y ATORVASTATI N CALCIUM (atorvastat in calcium), 40 MG, TABLET, ORAL, '[facility], 500 ea. BOTTLE Active [id number] 3 2023 1 Pharmac y Data Transac tion Service Facilit y ATORVASTATI N CALCIUM (atorvastat in calcium), 40 MG, TABLET, ORAL, NOVADOZ [facility], 500 ea. BOTTLE Active [id number] 4 2023 90 Pharmac y Data Transac tion Service Facilit y ATORVASTATI N CALCIUM (atorvastat in calcium), 40 MG, TABLET, ORAL, LAURA PHARMACEU, 1000 ea. BOTTLE Active [id number] 4 2023 90 Pharmac y Data Transac tion Service Facilit y CEPHALEXIN (CEPHALEXIN MONOHYDRATE ), 500MG, CAPSULE, ORAL, TEVA [place], 500 ea. BOTTLE Active [id number] 05/29/ 2024 14 Pharmac y Data Transac tion Service Facilit y CEPHALEXIN (CEPHALEXIN MONOHYDRATE ), 500MG, CAPSULE, ORAL, TEVA [place], 500 ea. BOTTLE Active [id number] 4 2023 14 Pharmac y Data Transac tion Service Facilit y CEPHALEXIN (CEPHALEXIN MONOHYDRATE ), 500MG, TABLET, ORAL, TEVA [place], 100 ea. BOTTLE Cancele d [id number] : 2023 0 Pharmac y Data Transac tion Service Facilit y CETIRIZINE HCL (cetirizine HCl), 10 MG, TABLET, ORAL, '[facility], 500 ea. BOTTLE Active [id number] 2023 30 Pharmac y Data Transac tion Service Facilit y CYCLOSPORIN E (cyclospori ne), 0.05 %, DROPERETTE, OPHTHALMIC, APOTEX JASPER, 30 ea. VIAL Active [id number] 4 2023 30 Pharmac y Data Transac tion Service Facilit y CYCLOSPORIN E (cyclospori ne), 0.05 %, DROPERETTE, OPHTHALMIC, APOTEX JASPER, 30 ea. VIAL Active [id number] 4 2023 30 Pharmac y Data Transac tion Service Facilit y CYCLOSPORIN E (cyclospori ne), 0.05 %, DROPERETTE, OPHTHALMIC, [employer] 30 ea. VIAL Cancele d [id number] : 2023 0 Pharmac y Data Transac tion Service Facilit y FOLIC ACID (folic acid), 1 MG, TABLET, ORAL, CH[employer] RX LL, 1800 ea. BOTTLE Cancele d [id number] : 2023 0 Pharmac y Data Transac tion Service Facilit y FUROSEMIDE (furosemide ), 20 MG, TABLET, ORAL, AVKARE, 1000 ea. BOTTLE Active [id number] 2023 45 Pharmac y Data Transac tion Service Facilit y FUROSEMIDE (furosemide ), 20 MG, TABLET, ORAL, RISING PHARM, 1000 ea. BOTTLE Active [id number] 2023 90 Pharmac y Data Transac tion Service Facilit y FUROSEMIDE (furosemide ), 20 MG, TABLET, ORAL, RISING PHARM, 1000 ea. BOTTLE Cancele d [id number] : 2023 0 Pharmac y Data Transac tion Service Facilit y FUROSEMIDE (furosemide ), 20 MG, TABLET, ORAL, [facility], 1000 ea. BOTTLE Active [id number] 2023 13 Pharmac y Data Transac tion Service Facilit y GABAPENTIN (GABAPENTIN ), 100 MG, CAPSULE, ORAL, ACTAVIS PHARMA,, 500 ea. BOTTLE Active [id number] 2023 90 Pharmac y Data Transac tion Service Facilit y GABAPENTIN (GABAPENTIN ), 100 MG, CAPSULE, ORAL, ACTAVIS PHARMA,, 500 ea. BOTTLE Active [id number] 2023 60 Pharmac y Data Transac tion Service Facilit y GABAPENTIN (GABAPENTIN ), 100 MG, CAPSULE, ORAL, ACTAVIS PHARMA,, 500 ea. BOTTLE Active [id number] 2023 30 Pharmac y Data Transac tion Service Facilit y GABAPENTIN (GABAPENTIN ), 300 MG, CAPSULE, ORAL, ACTAVIS PHARMA,, 500 ea. BOTTLE Active [id number] 2023 180 Pharmac y Data Transac tion Service Facilit y GABAPENTIN (gabapentin ), 600 MG, TABLET, ORAL, EXELAN PHARMACE, 500 ea. BOTTLE Active [id number] 2022 180 Pharmac y Data Transac tion Service Facilit y LEFLUNOMIDE (leflunomid e), 20 MG, TABLET, ORAL, AVKARE, 30 ea. BOTTLE Active [id number] 2023 90 Pharmac y Data Transac tion Service Facilit y LEFLUNOMIDE (leflunomid e), 20 MG, TABLET, ORAL, BUREL PHARMACEU, 30 ea. BOTTLE Active [id number] 2023 90 Pharmac y Data Transac tion Service Facilit y LEFLUNOMIDE (leflunomid e), 20 MG, TABLET, ORAL, ZYDUS PHARMACEU, 30 ea. BOTTLE Cancele d [id number] : 2023 0 Pharmac y Data Transac tion Service Facilit y LEFLUNOMIDE (leflunomid e), 20 MG, TABLET, ORAL, ZYDUS PHARMACEU, 30 ea. BOTTLE Active [id number] 4 2023 30 Pharmac y Data Transac tion Service Facilit y METHOTREXAT E (METHOTREXA TE SODIUM), 2.5MG, TABLET, ORAL, ARENAS, 100 ea. BOTTLE Active [id number] 2023 30 Pharmac y Data Transac tion Service Facilit y METHOTREXAT E (METHOTREXA TE SODIUM), 2.5MG, TABLET, ORAL, ARENAS, 100 ea. BOTTLE Active [id number] 2023 30 Pharmac y Data Transac tion Service Facilit y NITROFURANT OIN MONO-MACRO (NITROFURAN TOIN MONOHYD/M-C RYST), 100 MG, CAPSULE, ORAL, [employer]OGEN INC, 100 ea. BOTTLE Active [id number] 4 2023 14 Pharmac y Data Transac tion Service Facilit y NITROFURANT OIN MONO-MACRO (NITROFURAN TOIN MONOHYD/M-C RYST), 100 MG, CAPSULE, ORAL, [employer]OGEN INC, 100 ea. BOTTLE Active [id number] 2023 14 Pharmac y Data Transac tion Service Facilit y NITROGLYCER IN (NITROGLYCE RIN), 0.4MG/DOSE, SPRAY, TRANSLING, PERRIGO CO., 4.9 g BOTTLE Cancele d [id number] : 2023 0 Pharmac y Data Transac tion Service Facilit y NITROGLYCER IN (NITROGLYCE RIN), 0.4MG/DOSE, SPRAY, TRANSLING, PERR[employer]O CO., 4.9 g BOTTLE Active [id number] 4 2023 4.9 Pharmac y Data Transac tion Service Facilit y NYSTATIN (nystatin), 469547/G, CREAM (G), TOPICAL, TORRENT PHARMAC, 30 g TUBE Active [id number] 2023 30 Pharmac y Data Transac tion Service Facilit y OFLOXACIN (ofloxacin) , 0.3 %, DROPS, OPHTHALMIC, RAJNI PHARMACEU, 5 ml DROP BTL Active [id number] 4 2023 5 Pharmac y Data Transac tion Service Facilit y OMEPRAZOLE (OMEPRAZOLE ), 40 MG, CAPSULE DR, ORAL, ZYDUS PHARMACEU, 1000 ea. BOTTLE Active [id number] 4 2023 180 Pharmac y Data Transac tion Service Facilit y OMEPRAZOLE (OMEPRAZOLE ), 40 MG, CAPSULE DR, ORAL, ZYDUS PHARMACEU, 1000 ea. BOTTLE Active [id number] 2023 180 Pharmac y Data Transac tion Service Facilit y ONDANSETRON ODT (ONDANSETRO N), 4MG, TAB RAPDIS, ORAL, Ztory PHARMA, 30 ea. BLIST PACK Active [id number] 4 2023 30 Pharmac y Data Transac tion Service Facilit y PANTOPRAZOL E SODIUM (PANTOPRAZO LE SODIUM), 40 MG, TABLET DR, ORAL, MYLAN, 90 ea. BOTTLE Cancele d [id number] : 2023 0 Pharmac y Data Transac tion Service Facilit y POTASSIUM CHLORIDE (potassium chloride), 20 MEQ, TABLET ER, ORAL, ADVAGEN PHARMA, 100 ea. BOTTLE Active [id number] 4 2023 90 Pharmac y Data Transac tion Service Facilit y POTASSIUM CHLORIDE (potassium chloride), 20 MEQ, TABLET ER, ORAL, ADVAGEN PHARMA, 100 ea. BOTTLE Active [id number] 4 2023 90 Pharmac y Data Transac tion Service Facilit y PREGABALIN (pregabalin ), 100 MG, CAPSULE, ORAL, NOVADOZ PHARMAC, 90 ea. BOTTLE Active [id number] 4 2023 60 Pharmac y Data Transac tion Service Facilit y PREGABALIN (pregabalin ), 100 MG, CAPSULE, ORAL, JUANI PHA, 90 ea. BOTTLE Cancele d [id number] : 2023 0 Pharmac y Data Transac tion Service Facilit y PREGABALIN (pregabalin ), 100 MG, CAPSULE, ORAL, JUANI [facility], 90 ea. BOTTLE Cancele d [id number] : 2023 0 Pharmac y Data Transac tion Service Facilit y SUCRALFATE (sucralfate ), 1 G, TABLET, ORAL, Proactive Comfort., 100 ea. BOTTLE Active [id number] 2023 56 Pharmac y Data Transac tion Service Facilit y TIROSINT (levothyrox ine sodium), 100 MCG, CAPSULE, ORAL, [employer] PHARMA INC, 30 ea. BLIST PACK Active [id number] 2023 90 Pharmac y Data Transac tion Service Facilit y TIROSINT (levothyrox ine sodium), 100 MCG, CAPSULE, ORAL, IBSA PHARMA INC, 30 ea. BLIST PACK Active [id number] 4 2023 90 Pharmac y Data Transac tion Service Facilit y Immunizations Combined list of available immunizations from the Department of Defense and Veterans Affairs facilities. Immunization Series Date Given Administered By Site Reaction Lot Number CVX Code Drug Manager Of Transportation Status Comments Source COVID-19, mRNA, LNP-S, PF, 100 mcg or 50 mcg dose 2020 [facility], () Not Given COVID-19, mRNA, LNP-S, PF, 100 mcg or 50 mcg dose [facility] Influenza vaccine, quadrivalent, adjuvanted 2019 [facility], () Not Given Influenza vaccine, quadrival ent, adjuvante d [facility] Social History Combined list of available smoking, tobacco, and other social history from Department of Defense and Veterans Affairs facilities. Social History Type Response Date Comment Sourc e This section is an empty social history section. [facility]
--- OUTSIDE RECORDS SUMMARY | 2024-10-21 08:47 | XMS_ITS | Data Portability ---
Author Organization [facility] [place] [facility] Address [address] [place] [phone] Assessment No assessment recorded. Plan of Treatment Reminders Order Date Submit Date Provider Last Modified By Organization Details Last Modified Time Details Appointments None record ed. Lab None record ed. Referral None record ed. Procedures None record ed. Surgeries None record ed. Imaging None record ed. Medication Orders None record ed. Patient TargetsNo targets recorded. Patient Instructions Encounter Date Encounter Id Patient Instructions Last Modified By Organization Details Last Modified Time 04/22/2023 [id number] Records reviewed . Runs of A-fib tx with amiodarone, unable to tolerate metoprolol due to hypotension. Cath negative. Treated with aspirin, eliquis and statin. Returned home then re-admitted with near syncopal episode. CHF exacerbation, Tx with IV lasix. D/c multiple supplements, increase gabapentin to TID. Daily weights and labs weekly x 4 weeks. f/u 1 week. [email or web address] Not available 04/25/2023 16:21:17 04/28/2023 [id number] Pain continues, will increase luanne to 300 tid. Weight up from 114 to 120. Increase lasix to 40mg daily x 3 days. [email or web address] Not available 05/03/2023 08:56:52 12/08/2023 [id number] Records reviewed . stopped amiodarone in hospital. doing well, working with therapy. d/c carafate. labs weekly x 4 weeks. f/u next week. [email or web address] Not available 12/08/2023 16:20:56 12/15/2023 [id number] BLE edema, compression wraps x 3 days. d/c amlodipine, start chlorthalidone 25mg daily. [email or web address] Not available 12/16/2023 13:43:26 12/29/2023 [id number] Will stop iron a nd colace. start miralax dialy. blood pressure too low, d/c chlorthalidone. increase luanne back to 600mg bid. [email or web address] Not available 01/02/2024 14:07:42 Reason for Referral None Reported. Problems Name Problem SNOMED Code Status Onset Date Resolution Date Notes Provider Name and Address Organization Details Recorded Time Acute exacerbati on of chronic congestive heart failure 588605138 Active [address] [facility] 3 16:18:25 Peripheral vascular disease 219239930 Active [address] [facility] 3 16:18:26 Rheumatoid arthritis 28337267 Active [address] [facility] 3 16:18:27 History of coronary artery bypass grafting 987558687 Active [address] [facility] 3 16:18:44 Paroxysmal atrial fibrillati on 196649576 Active [address] [facility] 3 16:18:56 Subclavian artery stenosis 439326486 Active [address] [facility] 3 16:19:08 Hospital inpatient stay within past 30 days 0679634760727 Active [address] [facility] 4 16:19:08 Bradycardi a 46108051 Active [address] [facility] 4 16:19:09 Atrial fibrillati on with rapid ventricula r response 2080063703814 09 Active [address] [facility] 4 16:19:10 Problem Notes None recorded. Medical Equipment None Reported. Medications Name Sig Start Date Stop Date Status Note LastModified by Organization Details LastModified Time amoxicillin 500 mg capsule TAKE 1 CAPSULE BY MOUTH THREE TIMES DAILY FOR 7 DAYS active Not Available Not Available N ot Available atorvastatin 40 mg tablet TAKE 1 TABLET BY MOUTH DAILY active Not Available Not Available Not Available gabapentin 600 mg tablet TAKE 1 TABLET BY MOUTH IN THE EVENING active Not Available Not Available Not Available cetirizine 10 mg tablet TAKE 1 TABLET BY MOUTH EVERY DAY NEEDED FOR ALLERGY SYMPTOMS active Not Available Not Available No t Available azithromycin 250 mg tablet active Not Available Not Available Not Available ofloxacin 0.3 % eye drops INSTILL 1 DROP FOUR TIMES DAILY IN BOTH EYES active Not Available Not Available No t Available amiodarone 200 mg tablet TAKE 1 TABLET BY MOUTH TWICE DAILY AT 9 AM AND 9 PM FOR 30 DAYS active Not Available Not Available Not Available sotalol 80 mg tablet active Not Available Not Available No t Available prednisone 5 mg tablet active Not Available Not Available No t Available omeprazole 40 mg capsule,natasha yed release TAKE 1 CAPSULE BY MOUTH TWICE DAILY active Not Available Not Available No t Available aspirin 81 mg tablet,delay ed release TAKE 1 TABLET BY MOUTH DAILY active Not Available Not Available Not Available leflunomide 20 mg tablet TAKE 1 TABLET BY MOUTH DAILY active Not Available Not Available Not Available tramadol 50 mg tablet TAKE 1 TABLET BY MOUTH TWICE DAILY NEEDED FOR PAIN FOR 5 DAYS. SHORT OCURSE TILL SHE GETS HER SCRIPT FROM [facility]. active Not Available Not Available No t Available methotrexate sodium 2.5 mg tablet TAKE 4 TABLETS BY MOUTH ONCE WEEKLY ON WEDNESDAY EVERY 7 DAYS active Not Available Not Available No t Available cephalexin 500 mg capsule TAKE 1 CAPSULE BY MOUTH TWICE DAILY active Not Available Not Available No t Available nitroglyceri n 400 mcg/spray translingual active Not Available Not Available Not Available gabapentin 300 mg capsule TAKE 1 CAPSULE BY MOUTH TWICE DAILY active Not Available Not Available No t Available folic acid 1 mg tablet active Not Available Not Available No t Available mupirocin 2 % topical ointment APPLY TOPICALLY TO THE AFFECTED AREA TWICE DAILY active Not Available Not Available No t Available furosemide 20 mg tablet TAKE 1 TABLET BY MOUTH DAILY active Not Available Not Available Not Available gabapentin 100 mg capsule TAKE 2 CAPSULES BY MOUTH AT LUNCH TIME. TOTAL DOSE 600MG TWICE A DAY AND 200MG OVER LUNCH active Not Available Not Available No t Available ondansetron 4 mg disintegrati ng tablet DISSOLVE ONE TABLET BY MOUTH BEFORE BREAKFAST AND OTHER MEDICATIONS active Not Available Not Available Not Available cefdinir 300 mg capsule active Not Available Not Available N ot Available amoxicillin 500 mg-potassium clavulanate 125 mg tablet TAKE 1 TABLET BY MOUTH TWICE DAILY FOR 7 DAYS active Not Available Not Available No t Available Premarin 0.3 mg tablet active Not Available Not Available No t Available nitrofuranto in monohydrate/ macrocrystal s 100 mg capsule TAKE 1 CAPSULE BY MOUTH TWICE DAILY FOR 7 DAYS active Not Available Not Available No t Available pregabalin 100 mg capsule TAKE 1 CAPSULE BY MOUTH TWICE DAILY active Not Available Not Available No t Available FeroSul 325 mg (65 mg iron) tablet TAKE 1 TABLET BY MOUTH EVERY DAY active Not Available Not Available No t Available oseltamivir 30 mg capsule active Not Available Not Available Not Available diclofenac 1 % topical gel APPLY 2 GRAMS TO AFFECTED AREAS THREE TIMES DAILY FOR 7 DAYS active Not Available Not Available N ot Available Tirosint 100 mcg capsule active Not Available Not Available Not Available Tirosint 88 mcg capsule active Not Available Not Available Not Available Mucus Relief ER 600 mg tablet, extended release active Not Available Not Available Not Available Pradaxa 150 mg capsule active Not Available Not Available N ot Available Boudreauxs Butt Paste 40 % topical ointment APPLY TOPICALLY THREE TIMES DAILY NEEDED FOR SKIN IRRITATION FOR 30 DAYS active Not Available Not Available Not Available Eliquis 2.5 mg tablet active Not Available Not Available No t Available potassium chloride ER 20 mEq tablet,exten ded release TAKE 1 TABLET BY MOUTH DAILY active Not Available Not Available Not Available Repatha SureClick 140 mg/mL subcutaneous pen injector active Not Available Not Available Not Available baclofen 5 mg tablet active Not Available Not Available No t Available Vitals Date Recorded Body height Body mass index (BMI) Body weight Heart rate Respiratory rate Body temperature Oxygen saturation Oxygen saturation in Arterial blood by Pulse oximetry Systolic blood pressure Diastolic blood pressure Provider Name and Address Organization Details Last Updated DateTime 3 165.1 cm 19.3 kg/m2 04678.7 1 g 80 /min 20 /min 98.1 [degF] 97 % 97 % 150 mm[Hg] 80 mm[Hg] JOSHUA RUBIO [facility] .L.Ellie 3 16:16:16 Date Recorded Body height Body mass index (BMI) Body weight Heart rate Respiratory rate Body temperature Oxygen saturation Oxygen saturation in Arterial blood by Pulse oximetry Systolic blood pressure Diastolic blood pressure Provider Name and Address Organization Details Last Updated DateTime 3 165.1 cm 19.8 kg/m2 00587.4 9 g 72 /min 21 /min 97.3 [degF] 98 % 98 % 110 mm[Hg] 58 mm[Hg] [facility] L[facility]riciaL[facility]ail[facility] 3 08:55:07 Date Recorded Body height Body mass index (BMI) Body weight Heart rate Respiratory rate Body temperature Oxygen saturation Oxygen saturation in Arterial blood by Pulse oximetry Systolic blood pressure Diastolic blood pressure Provider Name and Address Organization Details Last Updated DateTime 4 165.1 cm 22 kg/m2 33869.1 9 g 68 /min 20 /min 98.2 [degF] 95 % 95 % 122 mm[Hg] 76 mm[Hg] [facility], LPatriciaLShaila 4 16:15:21 Date Recorded Body height Body mass index (BMI) Body weight Heart rate Respiratory rate Body temperature Oxygen saturation Oxygen saturation in Arterial blood by Pulse oximetry Systolic blood pressure Diastolic blood pressure Provider Name and Address Organization Details Last Updated DateTime 4 165.1 cm 22 kg/m2 49042.1 9 g 65 /min 20 /min 98.6 [degF] 96 % 96 % 138 mm[Hg] 64 mm[Hg] [facility], LPatriciaLShaila 4 13:40:54 Date Recorded Body height Body mass index (BMI) Body weight Heart rate Respiratory rate Body temperature Oxygen saturation Oxygen saturation in Arterial blood by Pulse oximetry Systolic blood pressure Diastolic blood pressure Provider Name and Address Organization Details Last Updated DateTime 4 165.1 cm 22.6 kg/m2 43039.5 6 g 65 /min 18 /min 98.3 [degF] 97 % 97 % 108 mm[Hg] 54 mm[Hg] [facility], LPatriciaL[facility]aila 4 14:05:10 Social History None recorded. Functional Status None recorded. Mental Status None recorded. Family History Nothing Reported. Medical History No medical history recorded. Gynecological HistoryNo gynecological history recorded. Obstetrics History GPAL:G 0 P 0 0 0 0 Past Encounters Encounter ID Performer Location Encounter Start Date Encounter Closed Date Diagnosis/Indication Diagnosis SNOMED-CT Code Diagnosis ICD10 Code Diagnosis Note [id number] Javed Carson [facility]) [address] [place] [phone] 04/23/2023 08:27:39 04/29/2023 11:24:05 Hospital inpatient stay within past 30 days 3237002113 106 Z76.89 Acute exac erbation of chronic congestive heart failure 878312705 I50.9 Peripheral vascular disease 071744270 I73.9 Rheumatoid arthritis 698 26141 M06.9 History of coronary artery bypass grafting 994786683 Z95.1 Paroxysmal atrial fibrillation 322380844 I48.0 Subclavian artery stenosis 197832120 I70.8 [id number] Javed Carson [facility]) [address] [place] [phone] 04/28/2023 13:08:37 05/06/2023 11:12:54 Paroxysmal atrial fibrillation 127404723 I48.0 History of coronary artery bypass grafting 455063724 Z95.1 Subclavian artery stenosis 048283081 I70.8 [id number] Javed Carson [facility]) [address] [place] [phone] 12/08/2023 14:09:45 12/14/2023 06:31:06 Hospital inpatient stay within past 30 days [id number] 106 Z76.89 Bradycardia 03284403 R00 .1 Atrial fib rillation with rapid ventricular response 0577139241 41915 I48.91 History of coronary artery bypass grafting 660428139 Z95.1 Peripheral vascular disease 112107998 I73.9 Rheumatoid arthritis 698 00296 M06.9 Subclavian artery stenosis 196886152 I70.8 [id number] Javed Carson [facility]) [address] [place] [id number] 12/15/2023 12:21:02 12/20/2023 15:39:17 Atrial fibrillation with rapid ventricular response 1111348274 33681 I48.91 Rheumatoid arthritis 698 58197 M06.9 [id number] Javed Carson DO [facility] ([facility]) [address] [place] [id number] 12/29/2023 07:53:04 01/03/2024 18:28:14 Constipation 85960737 K59.00 Health Concerns Section Related Observation LastModified by Organization Detai ls LastModified Time None Recorded Concern Status LastModified by Organization Details LastModified Time None Recorded Advance Directives Directive None Recorded Payers Encounter Date Sequence Insurance Name Policy Number Policy Mon Covered Member ID Mon Member ID Guarantor Name 04/22/2023 2 WPS - FOR LIFE (MEDICARE SUPPLEMENT) Shanna Barlowson [id number] Shanna Lang 04/22/2023 1 MEDICARE B-[place]: WPS Shanna A Lang [id number] Shanna Lang 04/28/2023 2 WPS - FOR LIFE (MEDICARE SUPPLEMENT) Shanna Lang [id number] Shanna Lang 04/28/2023 1 MEDICARE B-[place]: WPS Shanna A Lang [id number] Shanna Lang 12/08/2023 2 WPS - FOR LIFE (MEDICARE SUPPLEMENT) Shanna Lang [id number] Shanna Lang 12/08/2023 1 MEDICARE B-[place]: WPS Shanna A Lang [id number] Shanna Lang 12/15/2023 2 WPS - FOR LIFE (MEDICARE SUPPLEMENT) Shanna Lang [id number] Shanna Lang 12/15/2023 1 MEDICARE B-[place]: WPS Shanna A Lang [id number] Shanna Lang 12/29/2023 2 WPS - FOR LIFE (MEDICARE SUPPLEMENT) Shanna Lang [id number] Shanna Lang 12/29/2023 1 MEDICARE B-[place]: WPS Shanna A Lang [id number] Shannasebastian Barlowson Notes Date Note Type Note Provider Name and Address Organization Details Recorded Time 3 text/html Atrial FibrillationReported bypatient.Severity:mild Alleviating Factors:medication Associated Symptoms:no chest discomfort Javed Carson DO [address] [place] [address], [address] [place] [address], [facility] 04/26/2023 08:34:28 3 text/html Atrial FibrillationReported bypatient.Severity:mild Alleviating Factors:medication Associated Symptoms:no chest discomfort Javed Carson DO [address] [place] [address], [address] [place] [address], [facility] 05/03/2023 09:47:22 4 text/html Atrial FibrillationReported bypatient.Severity:mild Alleviating Factors:medication Associated Symptoms:no chest discomfort Javed Carson DO [address] [place] [address], [address] [place] [address], [facility] 12/13/2023 12:18:25 4 text/html Atrial FibrillationReported bypatient.Severity:mild Alleviating Factors:medication Associated Symptoms:no chest discomfort Javed Carson DO [address] [place] [address], [address] [place] [address], [facility] 12/20/2023 13:14:07 4 text/html Atrial FibrillationReported bypatient.Severity:mild Alleviating Factors:medication Associated Symptoms:no chest discomfort Javed Carson DO [address] [place] [address], [phone], [facility] 01/03/2024 13:43:28 OBGyn Episode No OBEpisode recorded.
--- OUTSIDE RECORDS SUMMARY | 2024-10-21 08:47 | XMS_ITS | Encounter Summary ---
Author Organization [facility] Address [address] [place] [address] Care Team Providers Care D[employer] Icer Machine Name Role Phone Coretta Mabry MD Primary Care Provider [phone] Encounter Details Date Type Department Care Team (Late st Contact Info) Description 10/21/2024 Emergency [facility] Emergency Department [address] [place] [address] Social History Tobacco Use Types Packs/Day Years Used Date Smoking Tobacco: Never Smokeless Tobacco: Never Alcohol Use Standard Drinks/Week Comments Never 0 (1 standard drink = 0.6 oz pur e alcohol) Feeling Safe Answer Date Recorded Are you in a relationship wi th someone who hurts you emotionally and/or physically? No 10/19/2024 Food Insecurity Answer Date Recorded Social/Environmental Concerns No concerns Transportation Needs Answer Date Record ed Social/Environmental Concerns No concerns Housing Stability Answer Date Recorded Social/Environmental Concerns No concerns Utility Needs Answer Date Recorded Social/Environmental Concerns No concerns Comments No Sex and Gender Information Value Date Recorded Sex Assigned at Not on file Legal Sex Female 11:59 AM [employer]IC [employer]ER[employer] Gender Identity Not on file Sexual Orientation Not on file documented as of this encounter Plan of Treatment Upcoming Encounters Date Type Department Care Team (Late st Contact Info) Description 12/14/2024 1:30 PM CDT Office Visit [facility] Urology- [address] Entrance [address], 3rd [place] [address] Marielena Chong FNP [address] [place] [address] 03/01/2025 1:20 PM CDT Office Visit [facility] O[facility]YN [place] [address] [place] [address] Boni Romo III, MD [address] [place] [address] documented as of this encounter Visit Diagnoses Not on filedocumented in this encounter Additional Health Concerns Infection Onset Date Last Indicated Resolved Time Influenza 10/19/2024 10/19/2024 documented as of this encounter Care Teams [employer] Icer Machine Relationship Specialty Start Date End Date Coretta Mabry MD [address] [address] PCP - General Family Practice 01/05/23 documented as of this encounter
--- OUTSIDE RECORDS SUMMARY | 2024-10-21 08:47 | XMS_ITS | Encounter Summary ---
Author Organization [facility] Address [address] [place] [address] Care Team Providers Care Tobacco Wrapping Machine Tender Name Role Phone Coretta Mabry MD Primary Care Provider [phone] Reason for Visit * Reason Comments Fever Chills general weakness Cough * Auth/Cert (Routine) Specialty Diagnoses / Procedures Referred By Patel reid Referred To Contact Internal Medicine Aria Jesus MD [address] [place] [id number] Phone: tel: fax: [address] [phone] Phone: tel: fax: Referral ID Status Reason Start Date Expiration Date Visits Re quested Visits Authorized [id number] 1 1 Encounter Details Date Type Department Care Team (Latest Contact Info) Description 10/19/2024 2:45 PM BLISS PRESS OPERATOR - 10/21/2024 8:01 AM BLISS PRESS OPERATOR Hospital Encounter [address] [id number] Aria Jesus MD [address] [place] [phone] Pneumonia of left lower lobe due to infectious organism Discharge Disposition: Acute Care Hospital Social History Tobacco Use Types Packs/Day Years [...] on file Legal Sex Female 11:59 AM BLISS PRESS OPERATOR Gender Identity Not on file Sexual Orientation Not on file documented as of this encounter Last Filed Vital Signs Vital Sign Reading Time Taken Comments Blood Pressure 155/56 10/21/2024 6:54 AM BLISS PRESS OPERATOR Pulse 74 10/21/2024 7:00 AM BLISS PRESS OPERATOR Temperature 36.8 ??C (98.3 ??F) 10/21/2024 6:54 AM CS T Respiratory Rate 18 10/21/2024 7:00 AM BLISS PRESS OPERATOR Oxygen Saturation 97% 10/21/2024 7:00 AM BLISS PRESS OPERATOR Inhaled Oxygen Concentration - - Weight 58.5 kg (129 lb) 10/19/2024 2:46 PM BLISS PRESS OPERATOR Height 165.1 cm (5' 5 ) 10/19/2024 2:46 PM BLISS PRESS OPERATOR Body Mass Index 21.47 10/19/2024 2:46 PM BLISS PRESS OPERATOR documented in this encounter Medications at Time of Discharge acetaminophen (TYLENOL) 500 mg tablet Take 500 mg by mouth every 12 hours. ondansetron (ZOFRAN) 4 mg Tablet Take 4 mg by mouth every 8 hours as needed for Nausea/Emesis. docusate sodium (COLACE ORAL) Take 10 mg by mouth. CALCIUM CARBONATE ORAL Take 200 mg by mouth. traMADoL (ULTRAM) 50 mg tablet Take 50 mg by mouth every 12 hours. CYCLOSPORINE OP by Ophthalmic route. ascorbic acid, vitamin C, (Vitamin C) 1,000 mg Tablet Take 2,000 mg by mouth daily. cholecalciferol, Vitamin D3, (VITAMIN D3) 25 mcg (1,000 unit) Capsule Take 2,000 Units by mouth daily. potassium CHLORIDE (KLOR-CON M20) 20 mEq Extended Release tablet Take 20 mEq by mouth daily. zinc gluconate 50 mg Tablet Take by mouth. Loperamide-Simeth icone 2-125 mg Tablet Take by mouth. nitroglycerin (NITROMIST) 400 mcg/spray Aerosol, Molena Place 1 Molena under tongue every 5 minutes as needed for Chest Pain. mirabegron (MYRBETRIQ) 25 mg Extended Release 24 hour tabletIndications :Urge incontinence Take 1 Tablet (25 mg) by mouth daily. 30 Tablet 09/20/2024 estradioL (Estrace) 0.01% (0.1 mg/g) vaginal creamIndications: Vaginal atrophy Apply 1g vaginally at night twice weekly 42.5 Gram 09/20/2024 trospium (SANCTURA) 20 mg TabletIndications :OAB (overactive bladder) Take 1 Tablet (20 mg) by mouth 2 times daily. 60 Tablet 09/15/2024 white petrolatum (Advanced Healing, Petrolatum,) 41 % Ointment Apply to affected area 1 time daily as needed for Rash or Redness. 07/07/2024 atorvastatin (LIPITOR) 40 mg tablet Take 40 mg by mouth daily at bedtime. gabapentin (NEURONTIN) 300 mg capsule Take 300 mg by mouth 2 times daily. One in am and one at 1400 Patient states she takes 400mg, specifically not 300mg gabapentin (NEURONTIN) 600 mg tablet Take 100 mg by mouth daily. levothyroxine 100 mcg tablet Take 100 mcg by mouth daily in the morning. omeprazole (PriLOSEC) 40 mg Capsule, Delayed Release(E.C.) Take 40 mg by mouth daily. documented as of this encounter Progress Notes * Mary Chavez RN - 10/21/2024 7:30 AM CST Patient discharged with EMS staff. Transferred to [facility] in stable condition. Amiodorone drip sent with patient, infusing without difficulty. Patient notified friends of transfer. All belongings sent with patient. S PRESS OPERATOR * Mary Chavze RN - 10/21/2024 6:40 AM CST Bedside report with previous shift complete. Patient resting comfortably in bed. No needs voiced atthis time. S PRESS OPERATOR * Kyung Barrera RN - 10/21/2024 5:07 AM CST Call made to [facility]. State that they plan to transfer at shift change. Patient currently stable.Will notify of changes and escalate as needed. S PRESS OPERATOR * Carlos Green MD - 10/21/2024 4:21 AM CST 10/21/24 0412 Transfer Documentation Patient's Condition Other (Comment) (Mostly stable with fleeting episodes of cardiac rhythm issues) Transfer Refused? No Transfer Requirements Transfer Requirements Patient has received a medical screening;Patient is not in active labor;Patient has been stabilized within the capabilities of the transferring facility;Patient to be transferred with required personnel / equipment;Receiving facility has agreed to accept transfer and to provide appropriate medical treatments;Receiving facility has available space and qualified personnel for the treatment of the patient;Risks and benefits of transfer explained to patient;Risks and benefits of transfer explained to patient's agency sales representative Transfer Benefits Availability of specialty care;Availability of specialized equipment;Continuity of physician care Transfer Risks in ADDITION TO General Risks which include: Worsening condition, , MVA, cardiacarrest, delay in care secondary to road conditions, mechanical breakdown, and weather. CARDIAC/RESPIRATORY RISKS - Increased pain, Worsening NC, Dysrhythmia, Worsening respiratory status, Intubation Patient Specific Expected Benefits Of Transfer cardiology support Transferring Physician Dr. Carlos Green Accepting Facility [facility] Phone Number Of Accepting Facility [phone] Type Of Facility Acute care hospital Date Transfer Accepted 10/21/24 Time Transfer Accepted [address] Jarrett Date Physician Accepted 10/21/24 Time Physician Accepted 0400 Caregiver Giving Report Kyung Barrera Date Report Given 10/21/24 Time Report Given 0420 Caregiver Receiving Report [facility] at Accepting Facility Direct admit to room Unit/Room Number ICU 6 Transfer Comments ICU overflow Details Of Transfer Mode Of Transfer Advanced life support ambulance Copy of this transfer form will be sent with patient along with: Demographic sheet;Pertinent Medical Records;EKG copy;Radiology films;Other (comment);X-Ray / MRI / CT reports;Lab results [facility]ulance [facility] Vital Signs and Notifications Vital Signs Documented? Yes Financial Sales Manager Notified Of Transfer? Yes S PRESS OPERATOR * Carlos Green MD - 10/21/2024 4:05 AM CST [facility] 10/21/24 4:05 AM Contacted for: Summary of overnight events Vitals: 10/21/24 0209 10/21/24 0221 10/21/24 0238 10/21/24 0355 Temp: Pulse: (!) 123 (!) 120 (!) 119 (!) 128 Heart Rate: BP: 123/78 103/69 122/71 107/65 Mean Arterial Pressure: 81 MM HG 74 MM HG Resp: 17 SpO2: 98% 97% Intervention/Follow up/Discussion: Patient was initially admitted on 10/19/2024 for influenza and pneumonia. She was started on Tamifluand suspected right lower lobe pneumonia started on Rocephin and azithromycin. Also concern for UTIwhich Rocephin should cover. Overnight patient developed tachycardia on routine vitals with heart rate 140. An EKG was done which showed sinus rhythm and she was placed on continuous cardiac monitoring. Was notable on continuouscardiac monitoring that she may have flipped into atrial fibrillation. An EKG was obtained showing A-fib with RVR. Reviewing her records, she has a history of atrial fibrillation however she was not on any rate controlling medications or anticoagulation. Patient noted that she was stopped on amiodarone by Dr. Galvez for unknown reasons. Patient was given a dose of IV metoprolol 5 mg which improved her heart rate to normal parameters however blood pressure became soft about 100 systolic. She did well for about 1-2 hours however slowly became more hypotensive and tachycardic. Ordered for 500 cc bolus however patient became hypoxemicand developed lung crackles therefore only 300 was administered. Given her unstable nature, plans were made for transfer to outside hospital. While arranging transfer BP as low as 70 systolic. Discussed with ED provider for cardioversion however upon arrival, her rhythm changed to stable BP and acceptable HR. No shock was given or needed. Her rhythm would flip several more times from afib to aflutter to bigeminy to sinus etc. Her BP remained soft but nothing as low as 70's earlier and never hypotensive for extended periods of time. Discussed with [facility] center and numerous hospitals within the region. Discussed with embroidery cutter Dr. Bryant at [place] as initially planned for transfer there. Recommendations were digoxin 250 and 125 in 6 hrs. If still in afib, give amiodarone. If unstable, shock. She was cardioverting herself as she would flip back into sinus. She is not on AC and no CVA symptoms. I started lovenox full dose to be complete, given at 0200. Dig given at 0200 as well. Unfortunately she ultimately not accepted to [facility] due to capacity. After Digoxin, her HR and BP became more stable however still in afib/flutter with rvr. Therefore per earlier recommendations amiodarone was given at 0400 150mg bolus plus ggt. Initially excepted to [facility] a facility 3 hours away however not able to arrange transportation in the meaningful timeframe given no helicopters are flying tonight Patient's primary embroidery cutter is Dr. Galvez at [facility] in [place]. Discussed with [facility] supervisor as well as Dr. Jarrett who graciously made special arrangements for patient.Patient transferred to ICU cardiac overflow. Troponins 39>40>40 Carlos rGeen MD To reach the vHospitalist team 24 hours a day, please place an e-Ticket through the [facility] tab in [place] or call us directly at [phone]. S PRESS OPERATOR S PRESS OPERATOR S PRESS OPERATOR S PRESS OPERATOR * Charlotte Dumont MD - 10/21/2024 1:27 AM CST 1304 a.m.: I received a call from the virtual hospitalist, Dr. Knapp. He notes that patient went into A-fib following which she administered metoprolol. That improved her heart rate but then dropped her blood pressure. 500 cc of normal saline was administered following which patient developed bilateral crackles. So, additional fluids will not be administered at this time. After a short while, patient's heart rate went up again to the 130s/140s. At some point, patient's blood pressure was reported to be 72/42. So, Dr. Green requested that I lay eyes on patient to determine whether or not she will be cardioverted given that she is in A-fib with hypotension. I went to the floor to see patient. On arrival, patient was alert and answering questions appropriately. Heart rate at this time is anywhere between 95 and 108. Her subsequent blood pressures after the initial hypotension were 108/59, 124/69 and 116/59. Given that patient's blood pressure has improved and her heart rate is presently controlled, no emergent intervention is indicated. Dr. Green has already called [facility] to arrange for transfer. Currently awaiting callback. S PRESS OPERATOR * Kyung Barrera RN - 10/21/2024 1:[address] Green with secure chat stating to hold digoxin at this time. Awaiting evaluation from ED provider S PRESS OPERATOR * Kyung Barrera RN - 10/21/2024 1:[address] Green notified of hypotension BP72/42 with map of 50. Patient with multiple cardiac arrhythmias reported from afib, aflutter, bigeminy at times and paced. Requested that ED provider come assess patient at this time. Bedside cxr being completed at this time S PRESS OPERATOR * Kyung Barrera RN - 10/21/2024 12:[address] Green notified of oxygen desaturation to 89% on room air, crackles to right lobe. New orders received to stop fluids. S PRESS OPERATOR * Audrey Ann RCP - 10/21/2024 12:45 AM CST Patient placed on 2L NC at this time S PRESS OPERATOR * Audrey Ann RCP - 10/21/2024 12:39 AM CST Checked patient per Amisha DYKES request. Crackles heard on right lobe. Discussed with Amisha DYKES who notified Dr. Green of findings. S PRESS OPERATOR * Kyung Barrera RN - 10/21/2024 12:27 AM CST Patient hypotensive with aflutter noted. Dr. Green notified. NS bolus 500ml ordered and being administered. Will recheck respiratory status related to known heart failure after completion of bolus. Will also recheck blood pressure. S PRESS OPERATOR * Audrey Ann RCP - 10/21/2024 12:14 AM CST EKG given to Amisha DYKES. Dr. Green notified. Scanned into [facility] S PRESS OPERATOR * Kyung Barrera RN - 10/21/2024 12:[address] Green notified via secure chat of update with heart rate. Patient noted to have rate 130-150. Currently awaiting further orders. S PRESS OPERATOR * Audrey Ann RCP - 10/20/2024 8:52 PM CST EKG performed given to Amisha Green notified. Scanned into EPIC S PRESS OPERATOR S PRESS OPERATOR * Audrey Ann RCP - 10/20/2024 8:37 PM CST EKG performed shown to nurse Amisha scanned into EPIC S PRESS OPERATOR * Carlos Green MD - 10/20/2024 8:33 PM CST [facility] 10/20/24 8:33 PM Contacted for: Heart rate in 140s, please advise Vitals: 10/20/24 0712 10/20/24 1234 10/20/24 1517 10/20/242009 Temp: 97.8 ??F (36.6 ??C) 98.2 ??F (36.8 ??C) Pulse: 88 90 (!) 141 Heart Rate: BP: 132/57 117/70 Mean Arterial Pressure: 76 MM HG 80 MM HG Resp: 18 18 18 SpO2: 93% 94% 94% 94% Intervention/Follow up/Discussion: First step is EKG stat Check TSH added to blood in lab from 1 day ago Continuous cardiac monitoring (cannot find order for telemetry box) ADDENDUM Time: 10/20/24 9:10 PM Contacted for: EKG follow up Intervention/Follow up/Discussion: In and out of afib rate 140-150 EKGs in media section Try metoprolol push 5mg IV Not on AC likely due to falls, she fell just before admission ADDENDUM Time: 10/20/24 9:32 PM Contacted for: BP 98/62, pulse rate down to 68 Intervention/Follow up/Discussion: Pt also complaining of nausea Continue to monitor Check trop trend ADDENDUM Time: 10/21/24 12:41 AM Contacted for: follow on afib Intervention/Follow up/Discussion: Shortly after her HR improved, she flipped back into aflutter again BP too low for metoprolol push, will order fluids EKG in media tab again Pt developed crackles in lower lung, 375 cc infused and placed on O2 for 89% spo2 Intervention/Follow up/Discussion: PT's bp dropped to the 70s I asked the ED provider to see the pt given the now hypotension for consideration of cardioversion By the time the ED provider saw the pt, she flipped rhythms and became more stable Intervention/Follow up/Discussion: Pt too unstable for this facility without cardiology support Attempts made to [facility] and [facility] for transfer No beds for direct admission [facility] accepted pt Dr. Gregg Intervention/Follow up/Discussion: [facility] 3 hrs away by ground, no helicopter tonight Pt received lovenox to complete 1mg/kg dosing Start trial of digoxin Intervention/Follow up/Discussion: Bp is still within acceptable parameters HR has started to creep upwards as high as 140 Will start amiodarone Amio may cause hypotension but her current bp can tolerate Carlos Green MD To reach the vHospitalist team 24 hours a day, please place an e-Ticket through the [facility] tab in [place] or call us directly at [phone]. S PRESS OPERATOR S PRESS OPERATOR S PRESS OPERATOR S PRESS OPERATOR S PRESS OPERATOR S PRESS OPERATOR S PRESS OPERATOR S PRESS OPERATOR S PRESS OPERATOR S PRESS OPERATOR * Audrey Ann RCP - 10/20/2024 6:45 PM CST Bedside report with the oncoming shift and the patient completed. S PRESS OPERATOR * Yael Camp RCP - 10/20/2024 3:15 PM CST Xopenex and Atrovent given via neb and mask, to patient up in a chair at this time. Breath sounds appear decreased and clear. No acute respiratory distress noted. S PRESS OPERATOR * Allie Booth RN - 10/20/2024 9:49 AM CST Care Management Initial Assessment Initial Discharge Planning Assessment completed. Discussed Care Management's role and Discharge planning. Discharge Plan: Plan Discharge To: Intermediate care facility/assisted living Does the patient have family and/or a caregiver that is willing, able and available to assist if needed? Yes - Name/Relation:Staff at Assisted Living Comments: NA Patient Discharge Planning Goal: Return to assisted living apartment Patient will potentially discharge to a SNF/NH? No Care Management visited with: patient via in person.Patient declines need for family involvement indischarge planning. Prior to admission, patient resides at: Apartment in a Assisted Living facility Patient resides in a 1 story home with 0 stairs to enter. Patient's bedroom and bathroom are located on the 1 floor. Prior to admission, living arrangements: group setting, with her own apartment. Prior to admission, patient's functional level:requires assistance; uses wheeled walker for mobility; needs assistance with iADLs: meal preparation, transportation, shopping, running errands, medication management, and housekeeping Community Ambulator: yes Prior to admission, the patient has the following DME? Yes wheeled walker Services in the home/community: none Serviced by NA Receives hemodialysis? No Emergency contact(s): No emergency contact information on file. Brigid Lb/DPOA Prescription coverage: yes Preferred Pharmacy verified: [facility] [address] [facility] [address] Insurance coverage verified: Payor: MEDICARE / Plan: MEDICARE PART A AND B / Product Type: Medicare/ Secondary Insurance:[facility] [place] Medicaid Status: NA Has VA Benefits: yes Employment Status: retired PCP verified as: Coretta Mabry MD Patient has not had a stay at an acute care hospital in the last 30 days. Recent Falls?: Last Known Fall: Within the last month Plan for transportation at discharge: Brigid Asher/[facility] Care Management contact information provided. Care Management will continue to follow and assist asneeded. Clinical documentation reviewed. Comprehensive Discharge Planning Risk Assessment was completed. Documentation Related to CDPA score CDPA Documentation Ambulation: assistive equipment Transferring: assistive equipment Toileting: assistive equipment Bathing: assistive equipment Dressing: assistive equipment Eating: independent Communication: understands/communicates w/o difficulty Weight-Bearing Status: no weight-bearing restrictions Living Arrangements: Other (Comment) (assisted living) Total Score of 9 or below does not identify immediate needs for discharge. CDPA Risk Assessment Total Score: 11 3 Disability 8 Age Criteria that do not apply: Self-reported walking limitation Prior Living Status Please place consult if needs for discharge are identified. Care Management will continue to follow for discharge planning. S PRESS OPERATOR * Charlotte Dumont MD - 10/20/2024 8:16 AM CST [facility] Adult Hospitalist Daily Progress Note Primary Care Provider: Coretta Mabry MD Admit Date: 10/19/2024 Date of Note: 10/20/2024 LOS: 1 day Current Room: 131/02 Patient, Shanna Lang is a(n) 89 y.o., admitted to the hospital with admission diagnosis of Pneumonia of left lower lobe due to infectious organism. Subjective 10/20/24 Patient evaluated at bedside. She was just finishing breakfast. The night was uneventful. Patient reports that she feels fine. She was initially on 1 L of oxygen via nasal cannula but she was taken off of it last night. Patient's oxygen saturation is in the mid 90s on room air. No fevers were reported. Objective Vitals: 10/20/24 0712 BP: Pulse: 88 Resp: 18 Temp: SpO2: 93% Intake/Output Summary (Last 24 hours) at 10/20/2024 0825 Last data filed at 10/20/2024 0652 Gross per 24 hour Intake 599.61 ml Output 196 ml Net 403.61 ml Physical Exam General: Alert and oriented, cooperative, in no acute distress. Eyes: Conjunctiva and sclera clear. HENT: Oropharynx clear, no nasal discharge Neck: supple, trachea midline CV: Regular rate and rhythm. Normal S1 and S2. Lungs: Diminished breath sounds at the bases, bibasilar Rales, bilateral expiratory wheeze. Abd: soft, nontender, nondistended, +bowel sounds Extremities: no cyanosis, clubbing, or edema Lymph: no abnormal lymphadenopathy Skin: no rash or open lesions Neuro: Alert, no focal deficits Psych: Normal affect Data Review: Recent Results (from the past 24 hours) INFLUENZA VIRUS A AND B, ANTIGEN DETECTION Collection Time: 10/19/24 2:55 PM Specimen: Nasopharynx; Upper Respiratory Result Value Ref Range INFLUENZA A AG Detected (A) Not Detected INFLUENZA B AG Not Detected Not Detected COVID-19 ANTIGEN Collection Time: 10/19/24 2:55 PM Specimen: Nares; Upper Respiratory Result Value Ref Range COVID-19 ANTIGEN Presumptive Negative Presumptive Negative CBC WITH DIFFERENTIAL Collection Time: 10/19/24 6:08 PM Result Value Ref Range WBC 7.7 4.0 - 10.0 K/uL RBC 3.55 (L) 3.93 - 5.22 M/uL HEMOGLOBIN 10.7 (L) 11.2 - 15.7 g/dL HEMATOCRIT 33.7 (L) 34.1 - 44.9 % MCV 94.9 (H) 79.4 - 94.8 fL MCH 30.1 25.6 - 32.2 pg MCHC 31.8 (L) 32.2 - 35.5 g/dL RDW 14.7 (H) 11.0 - 14.5 % RDW-STDEV 51.2 36.9 - 56.9 fL PLATELETS 166 163 - 337 K/uL MPV 10.2 10.0 - 14.8 fL NEUTROPHILS 85 (H) 34 - 71 % LYMPHOCYTES 6 (L) 19 - 52 % MONOCYTES 8 5 - 13 % EOSINOPHILS 0 (L) 1 - 6 % BASOPHILS 0 0 - 1 % IMMATURE GRANULOCYTES 0 % NEUTROPHIL ABSOLUTE 6.52 (H) 1.56 - 6.13 K/uL LYMPHOCYTE ABSOLUTE 0.49 (L) 1.20 - 3.40 K/uL MONOCYTE ABSOLUTE 0.65 (H) 0.24 - 0.36 K/uL EOSINOPHIL ABSOLUTE 0.01 (L) 0.04 - 0.36 K/uL BASOPHILS ABSOLUTE 0.02 0.01 - 0.08 K/uL IMMATURE GRANULOCYTES ABSOLUTE 0.02 K/uL SEDIMENTATION RATE Collection Time: 10/19/24 6:08 PM Result Value Ref Range ESR (SEDIMENTATION RATE) 36 (H) 0 - 30 mm/Hr COMPREHENSIVE METABOLIC PANEL Collection Time: 10/19/24 6:08 PM Result Value Ref Range SODIUM 138 136 - 145 mmol/L POTASSIUM 4.2 3.5 - 5.1 mmol/L CHLORIDE 101 98 - 107 mmol/L CO2 22 22 - 29 mmol/L CALCIUM 8.7 (L) 8.8 - 10.2 mg/dL BUN 27 (H) 8 - 23 mg/dL CREATININE 1.23 (H) 0.51 - 0.95 mg/dL GLUCOSE 97 74 - 99 mg/dL TOTAL PROTEIN 7.2 6.6 - 8.7 g/dL ALBUMIN 3.8 (L) 4.0 - 4.9 g/dL BILIRUBIN TOTAL 0.6 <=1.2 mg/dL ALKALINE PHOSPHATASE 394 (H) 35 - 104 U/L AST 43 (H) 0 - 35 U/L ALT 32 0 - 35 U/L GFR 42 mL/min/1.73 sq meter ANION GAP 15 5 - 20 mmol/L BRAIN NATRIURETIC PEPTIDE, BNP OR PROBNP Collection Time: 10/19/24 6:08 PM Result Value Ref Range PROBNP, N TERMINAL 3,879 (H) 0 - 450 pg/mL LACTIC ACID Collection Time: 10/19/24 6:08 PM Result Value Ref Range LACTIC ACID 1.4 <=2.0 mmol/L C-REACTIVE PROTEIN Collection Time: 10/19/24 6:08 PM Result Value Ref Range CRP 79.9 (H) <5.0 mg/L MAGNESIUM LEVEL Collection Time: 10/19/24 6:08 PM Result Value Ref Range MAGNESIUM 2.3 1.6 - 2.4 mg/dL URINALYSIS WITH REFLEX MICROSCOPIC Collection Time: 10/19/24 11:08 PM Result Value Ref Range COLOR UA Yellow Pale to Dark Yellow CLARITY UA Slightly Cloudy (A) Clear SPECIFIC GRAVITY UA >=1.030 1.003 - 1.035 PH UA 6.0 5.0 - 8.0 LEUKOCYTE ESTERASE UA 1+ (A) Negative NITRITE UA Negative Negative PROTEIN UA 2+ (A) Negative GLUCOSE UA Negative Negative KETONES UA Trace (A) Negative UROBILINOGEN UA 0.2 <2.0 mg/dL BILIRUBIN UA Negative Negative BLOOD UA Trace (A) Negative URINALYSIS MICROSCOPY ONLY Collection Time: 10/19/24 11:08 PM Result Value Ref Range WBC UA 51-100 (A) 0 - 2 /hpf RBC UA 6-10 (A) 0 - 2 /hpf BACTERIA UA 1+ (A) Negative /hpf EPITHELIAL CELLS, URINE 0-5 0 - 5 /hpf C. DIFFICILE DETECTION Collection Time: 10/20/24 12:25 AM Specimen: Stool Result Value Ref Range C DIFFICILE TOXIN Not Detected Not Detected GLUCOSE and POC GLUCOSE Lab Results Component Value Date/Time GLUCOSE 97 10/19/2024 06:08 PM No results found for: HGBA1C , [id number] ASSESSMENT: Assessment Right lower lobe pneumonia Influenza A infection Urinary tract infection Adnexal mass. PLAN: Plan Influenza: Continue Tamiflu. Right lower lobe pneumonia: Continue IV antibiotics. Monitor O2 saturation. Urinary tract infection: Continue IV antibiotics. Quality Measures: DVT PPX: Enoxaparin GI PPX: acid neutralizing therapy DIET: DIET GENERAL Effective Now DIET SUPPLEMENT GEN ADULT BID; Complete Oral Supplement, Precautions: No orders of the defined types were placed in this encounter. Code Status: Full Code DISPOSITION: Home when she feels better S PRESS OPERATOR * Yael Camp RCP - 10/20/2024 7:14 AM CST Bedside shift report completed. Levalbuterol and Atroven given via neb to patient at this time. Patient is on room air. S PRESS OPERATOR * Megan Mata Ud, MD - 10/20/2024 5:54 AM CST [facility]20/24 5:55 AM Contacted for: Patient requesting a tylenol be given with her dose of tramadol. Vitals: 10/19/24 2343 10/19/24 2344 10/20/24 0307 10/20/24 0353 Temp: 99.6 ??F (37.6 ??C) Pulse: 79 79 78 91 Heart Rate: BP: (!) 173/67 Mean Arterial Pressure: 95 MM HG Resp: 20 20 18 18 SpO2: 93% 93% 93% 94% Intervention/Follow up/Discussion: Chart reviewed. Ordered Megan Mata MD To reach the vHospitalist team 24 hours a day, please place an e-Ticket through the [employer] Virtual tab in [place] or call us directly at [phone]. S PRESS OPERATOR * Audrey Ann RCP - 10/19/2024 11:43 PM CST Xopenex and atrovent treatment given at this time. No adverse reactions noted S PRESS OPERATOR * Mariann Onofre APN - 10/19/2024 10:34 PM CST [facility] 10/19/24 10:34 PM Contacted for: Can I put in an order for an in and out catheter to obtain urine for lab? Vitals: 10/19/24 1830 10/19/24 1845 10/19/24 1900 10/19/24 1930 Temp: 100 ??F (37.8 ??C) Pulse: 91 85 84 84 Heart Rate: 91 bpm 85 bpm BP: 127/62 (!) 140/66 (!) 141/50 (!) 169/65 Mean Arterial Pressure: 82 MM HG 84 MM HG 75 MM HG 91 MM HG Resp: 22 22 20 SpO2: 98% 98% 98% 96% Intervention/Follow up/Discussion: Order straight cath x 1 Mariann Onofre APN To reach the vHospitalist team 24 hours a day, please place an e-Ticket through the [employer] tab in [facility] or call us directly at [phone]. ADDENDUM Time: 10/19/24 10:53 PM Contacted for: Patient having frequent, loose stools. Can we get some imodium? Intervention/Follow up/Discussion: Need to assess for GI pathogen prior to ordering imodium - Order GI pathogen panel and enteric isolation. Mariann Onofre APN ADDENDUM Time: 10/20/24 12:44 AM Contacted for: Can we add a cdiff order for lab? We have to send the gi pathogen panel to [facility]. Intervention/Follow up/Discussion: ordered Mariann Onofre APN Cosigned by Kayden Luz MD at 10/20/2024 12:58 AM [place] PRESS OPERATOR S PRESS OPERATOR S PRESS OPERATOR S PRESS OPERATOR S PRESS OPERATOR S PRESS OPERATOR * More Gar, PHARMACIST - 10/19/2024 8:34 PM CST RX ANTICOAG MONITORING ORDERS Pharmacy to order, review, and report clinically significant changes in lab per [facility] Anticoagulation Protocol as follows: Orders for dosing changes and follow-up labs will be signed ???Per Protocol?? in [facility]. The name ofthe provider signed on the follow-up orders for cosignature will be assigned as follows: Orders placed by members of the [employer] or Hospitalist physician groups: If the original ordering provider is no longer the attending physician for the patient, responsibility for cosignature of the follow-up medication orders and labs will transfer from the original ordering provider to the current attending physician. Orders placed by any other provider: Responsibility for cosignature of the follow-up medication orders and labs will remain with the original ordering provider of the anticoagulant order. Pharmacy will order appropriate labs as indicated by the [facility] Anticoagulation Monitoring policy located on [facility] intranet, unless already ordered. The medications that will be monitored include (but are not limited to): Low molecular weight heparin, heparin, and fondaparinux Direct Thrombin Inhibiors (argatroban, bivalirudin dabigatran lepirudin) Warfarin Direct oral anticoagulants (rivaroxaban, apixaban, edoxaban) Pharmacy will order labs for patients not on a heparin protocol, warfarin protocol, or anticoagulant protocol. Nursing to order labs required as indicated by those protocols. This policy is in compliance with the [facility] National Patient Safety Goal 3E and authorized by the [facility] Pharmacy and Therapeutics Committee. S PRESS OPERATOR documented in this encounter H&P Notes * Aria Jesus MD - 10/19/2024 8:13 PM CST [facility] History & Physical PATIENT: Shanna Lang AGE: 89 y.o. : 1935 BED: 131/02 PCP Coretta Mabry MD CC:Fever, Chills, general weakness, and Cough HPI Shanna Lang is a(n) 89 y.o. female, admitted to the hospital with the diagnosis of Pneumonia of left lower lobe due to infectious organism. The patient presents with a chief complaint of influenza-like symptoms for approximately 2.5 days. The patient reports feeling weak and experiencing a sensation of coldness in her legs extending up to her thighs, despite the legs not being objectively cold. The patient has also been experiencing a productive frequent cough. The patient reports a recent fall in the shower while attempting to use her walker. She fell backwards and now complains of pain in the middle area of her buttocks. She reports difficulty walking since the incident due to weakness and pain. The patient mentions decreased urinary output over the past few days and decreased oral intake, particularly of fluids. This morning, the patient vomited after taking her medication. The patient's past medical history includes a pacemaker, neuropathy, scoliosis, hypothyroidism, andosteoporosis. Her current medication includes levothyroxine for hypothyroidism. The patient lives in assisted living and was accompanied to the appointment by a friend Brigid, who osiris ALONSO In ED: -Influenza A: The patient presents with symptoms of weakness, feeling cold, and cough for 2.5 days. Influenza A test is positive. Auscultation of the chest suggests possible pneumonia. -Fall with Possible Pelvic/Hip Injury: The patient reports falling backwards in the shower while attempting to use walker. Complains of buttock pain, specifically in the middle area. Patient has history of osteoporosis, increasing risk offracture. Able to feel feet post-fall but reports weakness and difficulty walking. Plan: Obtain CT pelvis to rule out fracture. Xray Chest was showing LLL small area of consolidation, however there is also need for oxygen supplementation. CT pelvis revealed no acute fracture, however there was concern about possible Left adnexal cystic mass measuring at largest diameter at 7.5cm. Patient is unsure if she had oophorectomy as well, whenshe had her hysterectomy many years ago. Blood work was obtained revealing no significant leukocytosis, however there is left shift. ESR/CRPelevated. ProBNP is 3800s, however no signs of fluid overload. Electrolytes are intact. Renal function compared to prior showed no worsening, as patient has CKDIII. Has significant elevation of ALP at 394, which has also been present on blood work. LA is wnl. After providing patient with IV NS bolus of 250ml, patient felt some improvement in her fatigue, however there continues to be concern about patient requiring O2 supplementation. Allergies: Allergies Allergen Reactions Nitrofurantoin Shortness of Breath/Wheezing Hyoscyamine Other (See Comments) Milk Containing Products (Dairy) Diarrhea Morphine Nausea and Vomiting and Other (See Comments) It makes me go out of my head. Phenazopyridine Nausea and Vomiting Sulfa (Sulfonamide Antibiotics) Nausea and Vomiting Trimethoprim Rash PMHx: Past Medical History: Diagnosis Date afib Arthritis HTN (hypertension) Hyperlipidemia PSHx: Past Surgical History: Procedure Laterality Date HX CAROTID STENT HX HEART CATHETERIZATION HX HYSTERECTOMY Social Hx: Social History Tobacco Use Smoking status: Never Smokeless tobacco: Never Substance Use Topics Alcohol use: Never Family Hx: No family history on file. Home Medications: Prior to Admission medications Medication Sig Start Date End Date Taking? Authorizing Provider acetaminophen (TYLENOL) 500 mg tablet Take 500 mg by mouth every 12 hours. Yes Provider, Historical ondansetron (ZOFRAN) 4 mg Tablet Take 4 mg by mouth every 8 hours as needed for Nausea/Emesis. Yes Provider, Historical docusate sodium (COLACE ORAL) Take 10 mg by mouth. Yes Provider, Historical CALCIUM CARBONATE ORAL Take 200 mg by mouth. Yes Provider, Historical traMADoL (ULTRAM) 50 mg tablet Take 50 mg by mouth every 12 hours. Yes Provider, Historical CYCLOSPORINE OP by Ophthalmic route. Yes Provider, Historical ascorbic acid, vitamin C, (Vitamin C) 1,000 mg Tablet Take 2,000 mg by mouth daily. Yes Provider, Historical cholecalciferol, Vitamin D3, (VITAMIN D3) 25 mcg (1,000 unit) Capsule Take 2,000 Units by mouth daily. Yes Provider, Historical potassium CHLORIDE (KLOR-CON M20) 20 mEq Extended Release tablet Take 20 mEq by mouth daily. Yes Provider, Historical zinc gluconate 50 mg Tablet Take by mouth. Yes Provider, Historical Loperamide-Simethicone 2-125 mg Tablet Take by mouth. Yes Provider, Historical nitroglycerin (NITROMIST) 400 mcg/spray Aerosol, Molena Place 1 Molena under tongue every 5 minutes as needed for Chest Pain. Yes Provider, Historical mirabegron (MYRBETRIQ) 25 mg Extended Release 24 hour tablet Take 1 Tablet (25 mg) by mouth daily. 09/20/24 Yes Boni Romo III, MD estradioL (Estrace) 0.01% (0.1 mg/g) vaginal cream Apply 1g vaginally at night twice weekly 09/20/24Yes Boni Romo III, MD trospium (SANCTURA) 20 mg Tablet Take 1 Tablet (20 mg) by mouth 2 times daily. 09/15/24 Yes Marielena Chong FNP atorvastatin (LIPITOR) 40 mg tablet Take 40 mg by mouth daily at bedtime. Yes Provider, Historical gabapentin (NEURONTIN) 300 mg capsule Take 300 mg by mouth 2 times daily. One in am and one at 1400 Patient states she takes 400mg, specifically not 300mg Yes Provider, Historical gabapentin (NEURONTIN) 600 mg tablet Take 100 mg by mouth daily. Yes Provider, Historical levothyroxine 100 mcg tablet Take 100 mcg by mouth daily in the morning. Yes Provider, Historical omeprazole (PriLOSEC) 40 mg Capsule, Delayed Release(E.C.) Take 40 mg by mouth daily. Yes Provider,Historical white petrolatum (Advanced Healing, Petrolatum,) 41 % Ointment Apply to affected area 1 time daily as needed for Rash or Redness. 07/07/24 Marielena Chong, [place] Review of Systems As above Physical: Patient Vitals for the past 24 hrs: BP Temp Temp src Pulse Resp SpO2 Height Weight 10/19/24 1930 (!) 169/65 100 ??F (37.8 ??C) Oral 84 20 96 % -- -- 10/19/24 1900 (!) 141/50 -- -- 84 22 98 % -- -- 10/19/24 1845 (!) 140/66 -- -- 85 22 98 % -- -- 10/19/24 1830 127/62 -- -- 91 -- 98 % -- -- 10/19/24 1800 117/72 -- -- -- -- -- -- -- 10/19/24 1630 (!) 183/101 -- -- 85 16 92 % -- -- 10/19/24 1615 (!) 193/78 -- -- 86 16 95 % -- -- 10/19/24 1600 (!) 189/72 -- -- 85 16 93 % -- -- 10/19/24 1545 (!) 193/79 -- -- 85 16 97 % -- -- 10/19/24 1530 (!) 190/89 -- -- 85 16 93 % -- -- 10/19/24 1515 (!) 172/77 -- -- 84 16 91 % -- -- 10/19/24 1500 (!) 176/74 -- -- 85 16 90 % -- -- 10/19/24 1446 (!) 171/75 98.8 ??F (37.1 ??C) Oral -- 16 95 % 5' 5 (1.651 m) 58.5 kg (129 lb) General appearance: alert, cooperative, mild distress Head: atraumatic, Normocephalic, without obvious abnormality Eyes: conjunctivae/corneas clear. PERRL, EOM's intact. Neck: no adenopathy and no JVD Lungs: rales L base, wheezes diffuse Heart: regular rate and rhythm, no murmurs Abdomen: Soft, non-tender. Bowel sounds normal. No organomegaly. Extremities: moves all extremities equally, no edema, redness or tenderness in the calves or thighs, normal strength Neurologic: Grossly normal Laboratory Testing Results: Recent Results (from the past 48 hours) INFLUENZA VIRUS A AND B, ANTIGEN DETECTION Collection Time: 10/19/24 2:55 PM Specimen: Nasopharynx; Upper Respiratory Result Value Ref Range INFLUENZA A AG Detected (A) Not Detected INFLUENZA B AG Not Detected Not Detected COVID-19 ANTIGEN Collection Time: 10/19/24 2:55 PM Specimen: Nares; Upper Respiratory Result Value Ref Range COVID-19 ANTIGEN Presumptive Negative Presumptive Negative CBC WITH DIFFERENTIAL Collection Time: 10/19/24 6:08 PM Result Value Ref Range WBC 7.7 4.0 - 10.0 K/uL RBC 3.55 (L) 3.93 - 5.22 M/uL HEMOGLOBIN 10.7 (L) 11.2 - 15.7 g/dL HEMATOCRIT 33.7 (L) 34.1 - 44.9 % MCV 94.9 (H) 79.4 - 94.8 fL MCH 30.1 25.6 - 32.2 pg MCHC 31.8 (L) 32.2 - 35.5 g/dL RDW 14.7 (H) 11.0 - 14.5 % RDW-STDEV 51.2 36.9 - 56.9 fL PLATELETS 166 163 - 337 K/uL MPV 10.2 10.0 - 14.8 fL NEUTROPHILS 85 (H) 34 - 71 % LYMPHOCYTES 6 (L) 19 - 52 % MONOCYTES 8 5 - 13 % EOSINOPHILS 0 (L) 1 - 6 % BASOPHILS 0 0 - 1 % IMMATURE GRANULOCYTES 0 % NEUTROPHIL ABSOLUTE 6.52 (H) 1.56 - 6.13 K/uL LYMPHOCYTE ABSOLUTE 0.49 (L) 1.20 - 3.40 K/uL MONOCYTE ABSOLUTE 0.65 (H) 0.24 - 0.36 K/uL EOSINOPHIL ABSOLUTE 0.01 (L) 0.04 - 0.36 K/uL BASOPHILS ABSOLUTE 0.02 0.01 - 0.08 K/uL IMMATURE GRANULOCYTES ABSOLUTE 0.02 K/uL SEDIMENTATION RATE Collection Time: 10/19/24 6:08 PM Result Value Ref Range ESR (SEDIMENTATION RATE) 36 (H) 0 - 30 mm/Hr COMPREHENSIVE METABOLIC PANEL Collection Time: 10/19/24 6:08 PM Result Value Ref Range SODIUM 138 136 - 145 mmol/L POTASSIUM 4.2 3.5 - 5.1 mmol/L CHLORIDE 101 98 - 107 mmol/L CO2 22 22 - 29 mmol/L CALCIUM 8.7 (L) 8.8 - 10.2 mg/dL BUN 27 (H) 8 - 23 mg/dL CREATININE 1.23 (H) 0.51 - 0.95 mg/dL GLUCOSE 97 74 - 99 mg/dL TOTAL PROTEIN 7.2 6.6 - 8.7 g/dL ALBUMIN 3.8 (L) 4.0 - 4.9 g/dL BILIRUBIN TOTAL 0.6 <=1.2 mg/dL ALKALINE PHOSPHATASE 394 (H) 35 - 104 U/L AST 43 (H) 0 - 35 U/L ALT 32 0 - 35 U/L GFR 42 mL/min/1.73 sq meter ANION GAP 15 5 - 20 mmol/L BRAIN NATRIURETIC PEPTIDE, BNP OR PROBNP Collection Time: 10/19/24 6:08 PM Result Value Ref Range PROBNP, N TERMINAL 3,879 (H) 0 - 450 pg/mL LACTIC ACID Collection Time: 10/19/24 6:08 PM Result Value Ref Range LACTIC ACID 1.4 <=2.0 mmol/L C-REACTIVE PROTEIN Collection Time: 10/19/24 6:08 PM Result Value Ref Range CRP 79.9 (H) <5.0 mg/L MAGNESIUM LEVEL Collection Time: 10/19/24 6:08 PM Result Value Ref Range MAGNESIUM 2.3 1.6 - 2.4 mg/dL GLUCOSE and POC GLUCOSE Lab Results Component Value Date/Time GLUCOSE 97 10/19/2024 06:08 PM No results found for: HGBA1C , [id number] Imaging: Results for orders placed during the hospital encounter of 10/19/24 XR CHEST PA OR AP 1 VW Narrative XR CHEST PA OR AP 1 VW Reason For Exam: Cough and Congestion, Hypoxia. Diagnosis: See Reason for Exam. COMPARISON: 07/17/2023 FINDINGS: Cardiomediastinal silhouette is within normal limits. Mild left basilar atelectasis/consolidation is noted. Pacer is in place. No pneumothorax or large pleural effusion. Follow-up radiograph to ensure resolution recommended. Results for orders placed during the hospital encounter of 10/19/24 CT PELVIS WO CONTRAST Impression : Please see below. Exam: CT PELVIS WO CONTRAST Date/Time of Exam: 10/19/2024 4:49 PM Reason For Exam: Pelvis pain, stress fracture suspected, no prior imaging, fall from standing with pelvis and bilateral hip pain.. Diagnosis: See Reason for Exam. Technique: Axial tomograms obtained through the pelvis without IV contrast. Findings: No acute osseous pathology of pelvis or of either hip. Mild degenerative change of symphysis pubis. Imaged lower lumbar spine with marked spondylosis and degenerative disc disease. Enthesopathy of greater trochanter of both femurs. Intrapelvic contents with large rounded cystic structure averaging 7.3 cm in greatest diameter within left posterior adnexal space. Surgically absent uterus. Colonic diverticulosis. IMPRESSION: No acute osseous pathology. Further evaluation of musculoskeletal soft tissue structures with MRI may be of benefit as clinically warranted. Nonspecific large 7.3 cm cystic structure within left posterior adnexal space of which further correlation with nonemergent pelvic ultrasound is recommended. Assessment: Assessment LLL Pneumonia Influenza A Afib? HTN Chronic Pain Hypothyroidism Plan: Plan LLL Pneumonia Azithromycin 500mg IVPB once daily Ceftriaxone 2g IVPB once daily Mucinex 600mg PO twice daily Xopenex+Ipratropium O2 via NC at 1-2 L. Influenza A Tamiflu 30mg PO once daily (renally dosed) Afib Confirm patient's current medications? Unsure if patient is on Amiodarone and/or Pradaxa. HTN Monitor BP Chronic Pain Gabapentin 300mg PO tid Tramadol 50mg PO twice daily Hypothyroidism Levothyroxine 100mcg once daily Quality Measures: DVT PPX: Enoxaparin GI PPX: proton pump inhibitor DIET: DIET GENERAL Effective Now DIET SUPPLEMENT GEN ADULT BID; Complete Oral Supplement, Precautions: No orders of the defined types were placed in this encounter. Code Status: Full Code DISPOSITION: Home Aria Jesus MD 10/19/2024 8:13 PM S PRESS OPERATOR documented in this encounter ED Notes * Nadja Holliday RN - 10/19/2024 7:13 PM CST Kristin Hernandez, nursing staff at [facility] on patient status. All questions answered at this time. S PRESS OPERATOR * Nadja Holliday RN - 10/19/2024 7:10 PM CST Report given to DONIS Dukes, on medical surgical floor. All questions answered at this time. S PRESS OPERATOR S PRESS OPERATOR * Nadja Holliday RN - 10/19/2024 2:48 PM CST Patient presents to the emergency department via [facility] for influenza like symptoms. Patient states she has been sick since yesterday with cough, fever/chills, and generalized weakness. Reports being in contact with her friend, whose is currently sick with influenza. Patient states she did fall last night attempting to get off of the toilet. States her walker was not locked, causing her to fall on her sacrum. Patient reports 9.5/10 pain to her sacrum. Vital signs as documented. S PRESS OPERATOR * Aria Jesus MD - 10/19/2024 2:41 PM CST HISTORY OF PRESENT ILLNESS Shanna Lang, a 89 y.o. female presents to the ED with a Chief Complaint of Fever, Chills, general weakness, and Cough Subjective The patient presents with a chief complaint of influenza-like symptoms for approximately 2.5 days. The patient reports feeling weak and experiencing a sensation of coldness in her legs extending up to her thighs, despite the legs not being objectively cold. The patient has also been experiencing a productive frequent cough. The patient reports a recent fall in the shower while attempting to use her walker. She fell backwards and now complains of pain in the middle area of her buttocks. She reports difficulty walking since the incident due to weakness and pain. The patient mentions decreased urinary output over the past few days and decreased oral intake, particularly of fluids. This morning, the patient vomited after taking her medication. The patient's past medical history includes a pacemaker, neuropathy, scoliosis, hypothyroidism, andosteoporosis. Her current medication includes levothyroxine for hypothyroidism. The patient lives in assisted living and was accompanied to the appointment by a friend Brigid, who isher DPOA History provided by: The patient Arrived by: Private vehicle Arrived from: Home REVIEW OF SYSTEMS Review of Systems All other systems reviewed and are negative. PAST MEDICAL HISTORY REVIEWED MEDICAL: Patient has a past medical history of afib, Arthritis, HTN (hypertension), and Hyperlipidemia. SURGICAL: Patient has a past surgical history that includes carotid stent; hysterectomy; and heart catheterization. FAMILY: Patient's family history is not on file. SOCIAL: reports that she has never smoked. She has never used smokeless tobacco. She reports that she does not drink alcohol and does not use drugs. No history on file. Social History Other Topics Concern Not on file ALLERGIES Nitrofurantoin, Hyoscyamine, Milk containing products (dairy), Morphine, Phenazopyridine, Sulfa (sulfonamide antibiotics), and Trimethoprim HOME MEDICATIONS Current Discharge Medication List CONTINUE these medications which have NOT CHANGED Details acetaminophen (TYLENOL) 500 mg tablet Take 500 mg by mouth every 12 hours. ondansetron (ZOFRAN) 4 mg Tablet Take 4 mg by mouth every 8 hours as needed for Nausea/Emesis. docusate sodium (COLACE ORAL) Take 10 mg by mouth. CALCIUM CARBONATE ORAL Take 200 mg by mouth. traMADoL (ULTRAM) 50 mg tablet Take 50 mg by mouth every 12 hours. CYCLOSPORINE OP by Ophthalmic route. ascorbic acid, vitamin C, (Vitamin C) 1,000 mg Tablet Take 2,000 mg by mouth daily. cholecalciferol, Vitamin D3, (VITAMIN D3) 25 mcg (1,000 unit) Capsule Take 2,000 Units by mouth daily. potassium CHLORIDE (KLOR-CON M20) 20 mEq Extended Release tablet Take 20 mEq by mouth daily. zinc gluconate 50 mg Tablet Take by mouth. Loperamide-Simethicone 2-125 mg Tablet Take by mouth. nitroglycerin (NITROMIST) 400 mcg/spray Aerosol, Molena Place 1 Molena under tongue every 5 minutes as needed for Chest Pain. mirabegron (MYRBETRIQ) 25 mg Extended Release 24 hour tablet Take 1 Tablet (25 mg) by mouth daily. Qty: 30 Tablet, Refills: 11 Associated Diagnoses: Urge incontinence estradioL (Estrace) 0.01% (0.1 mg/g) vaginal cream Apply 1g vaginally at night twice weekly Qty: 42.5 Gram, Refills: 11 Associated Diagnoses: Vaginal atrophy trospium (SANCTURA) 20 mg Tablet Take 1 Tablet (20 mg) by mouth 2 times daily. Qty: 60 Tablet, Refills: 11 Associated Diagnoses: OAB (overactive bladder) atorvastatin (LIPITOR) 40 mg tablet Take 40 mg by mouth daily at bedtime. gabapentin (NEURONTIN) 300 mg capsule Take 300 mg by mouth 2 times daily. One in am and one at 1400 Patient states she takes 400mg, specifically not 300mg gabapentin (NEURONTIN) 600 mg tablet Take 100 mg by mouth daily. levothyroxine 100 mcg tablet Take 100 mcg by mouth daily in the morning. omeprazole (PriLOSEC) 40 mg Capsule, Delayed Release(E.C.) Take 40 mg by mouth daily. white petrolatum (Advanced Healing, Petrolatum,) 41 % Ointment Apply to affected area 1 time daily as needed for Rash or Redness. Comments: Use for irritation STOP taking these medications fluconazole (DIFLUCAN) 150 mg tablet Comments: Reason for Stopping: nystatin (MYCOSTATIN) 100,000 unit/gram Cream Comments: Reason for Stopping: aspirin (ECOTRIN EC) 81 mg Tablet, Delayed Release (E.C.) Comments: Reason for Stopping: furosemide (LASIX) 20 mg tablet Comments: Reason for Stopping: POTASSIUM GLUCONATE ORAL Comments: Reason for Stopping: amiodarone (CORDARONE) 200 mg tablet Comments: Reason for Stopping: dabigatran etexilate (PRADAXA) 150 mg Capsule Comments: Reason for Stopping: conjugated estrogens (PREMARIN) 0.3 mg tablet Comments: Reason for Stopping: folic acid (FOLVITE) 1 mg tablet Comments: Reason for Stopping: Objective PHYSICAL EXAM INITIAL VS BP: (!) 171/75 (10/19/24 1446), Heart Rate: 86 bpm (10/19/24 1446), Resp: 16 (10/19/24 1446), Pulse: 85 (10/19/24 1500), Temp: 98.8 ??F (37.1 ??C) (10/19/24 1446), Temp src: Oral (10/19/24 1446), SpO2: 95 % (10/19/24 1446), Height: 5' 5 (165.1 cm) (10/19/24 1446), Weight: 58.5 kg (129 lb) (10/19/24 1446), BMI (Calculated): 21.46 (10/19/241445) No LMP recorded. Patient has had a hysterectomy. Physical Exam Vitals and nursing note reviewed. Constitutional: General: She is in acute distress. Appearance: She is normal weight. She is ill-appearing. HENT: Head: Normocephalic. Nose: Rhinorrhea present. Mouth/Throat: Mouth: Mucous membranes are moist. Eyes: General: Right eye: No discharge. Left eye: No discharge. Extraocular Movements: Extraocular movements intact. Conjunctiva/sclera: Conjunctivae normal. Pupils: Pupils are equal, round, and reactive to light. Cardiovascular: Rate and Rhythm: Normal rate. Rhythm irregular. Pulses: Normal pulses. Heart sounds: Murmur heard. Pulmonary: Effort: Pulmonary effort is normal. No respiratory distress. Breath sounds: Wheezing and rales present. Chest: Chest wall: No tenderness. Abdominal: Palpations: Abdomen is soft. Tenderness: There is no abdominal tenderness. Musculoskeletal: Right lower leg: No edema. Left lower leg: No edema. Comments: Pelvic motion tenderness. Bilateral hip joint pain. Lymphadenopathy: Cervical: Cervical adenopathy present. Skin: General: Skin is warm and dry. Capillary Refill: Capillary refill takes 2 to 3 seconds. Coloration: Skin is not pale. Findings: No bruising or erythema. Neurological: General: No focal deficit present. Mental Status: She is alert and oriented to person, place, and time. Mental status is at baseline. Cranial Nerves: No cranial nerve deficit. Psychiatric: Mood and Affect: Mood normal. Behavior: Behavior normal. DIAGNOSTICS LAB: INFLUENZA VIRUS A AND B, ANTIGEN DETECTION - Abnormal Result Value INFLUENZA A AG Detected (*) INFLUENZA B AG Not Detected CBC WITH DIFFERENTIAL - Abnormal WBC 7.7 RBC 3.55 (*) HEMOGLOBIN 10.7 (*) HEMATOCRIT 33.7 (*) MCV 94.9 (*) MCH 30.1 MCHC 31.8 (*) RDW 14.7 (*) RDW-STDEV 51.2 PLATELETS 166 MPV 10.2 NEUTROPHILS 85 (*) LYMPHOCYTES 6 (*) MONOCYTES 8 EOSINOPHILS 0 (*) BASOPHILS 0 IMMATURE GRANULOCYTES 0 NEUTROPHIL ABSOLUTE 6.52 (*) LYMPHOCYTE ABSOLUTE 0.49 (*) MONOCYTE ABSOLUTE 0.65 (*) EOSINOPHIL ABSOLUTE 0.01 (*) BASOPHILS ABSOLUTE 0.02 IMMATURE GRANULOCYTES ABSOLUTE 0.02 SEDIMENTATION RATE - Abnormal ESR (SEDIMENTATION RATE) 36 (*) COMPREHENSIVE METABOLIC PANEL - Abnormal SODIUM 138 POTASSIUM 4.2 CHLORIDE 101 CO2 22 CALCIUM 8.7 (*) BUN 27 (*) CREATININE 1.23 (*) GLUCOSE 97 TOTAL PROTEIN 7.2 ALBUMIN 3.8 (*) BILIRUBIN TOTAL 0.6 ALKALINE PHOSPHATASE 394 (*) AST 43 (*) ALT 32 GFR 42 ANION GAP 15 BRAIN NATRIURETIC PEPTIDE, BNP OR PROBNP - Abnormal PROBNP, N TERMINAL 3,879 (*) C-REACTIVE PROTEIN - Abnormal CRP 79.9 (*) COVID-19 ANTIGEN - Normal COVID-19 ANTIGEN Presumptive Negative LACTIC ACID - Normal LACTIC ACID 1.4 MAGNESIUM LEVEL - Normal MAGNESIUM 2.3 URINALYSIS WITH REFLEX MICROSCOPIC RADIOLOGY: CT PELVIS WO CONTRAST Radiologist Impression IMPRESSION: Please see below. Exam: CT PELVIS WO CONTRAST Date/Time of Exam: 10/19/2024 4:49 PM Reason For Exam: Pelvis pain, stress fracture suspected, no prior imaging, fall from standing with pelvis and bilateral hip pain.. Diagnosis: See Reason for Exam. Technique: Axial tomograms obtained through the pelvis without IV contrast. Findings: No acute osseous pathology of pelvis or of either hip. Mild degenerative change of symphysis pubis. Imaged lower lumbar spine with marked spondylosis and degenerative disc disease. Enthesopathy of greater trochanter of both femurs. Intrapelvic contents with large rounded cystic structure averaging 7.3 cm in greatest diameter within left posterior adnexal space. Surgically absent uterus. Colonic diverticulosis. IMPRESSION: No acute osseous pathology. Further evaluation of musculoskeletal soft tissue structures with MRI may be of benefit as clinically warranted. Nonspecific large 7.3 cm cystic structure within left posterior adnexal space of which further correlation with nonemergent pelvic ultrasound is recommended. XR CHEST PA OR AP 1 VW Radiologist Impression EKG: PROCEDURES Procedures MEDICAL DECISION MAKING AND PLAN OF CARE Medical Decision Making -Influenza A: The patient presents with symptoms of weakness, feeling cold, and cough for 2.5 days. Influenza A test is positive. Auscultation of the chest suggests possible pneumonia. -Fall with Possible Pelvic/Hip Injury: The patient reports falling backwards in the shower while attempting to use walker. Complains of buttock pain, specifically in the middle area. Patient has history of osteoporosis, increasing risk offracture. Able to feel feet post-fall but reports weakness and difficulty walking. Plan: Obtain CT pelvis to rule out fracture. Xray Chest was showing LLL small area of consolidation, however there is also need for oxygen supplementation. CT pelvis revealed no acute fracture, however there was concern about possible Left adnexal cystic mass measuring at largest diameter at 7.5cm. Patient is unsure if she had oophorectomy as well, whenshe had her hysterectomy many years ago. Blood work was obtained revealing no significant leukocytosis, however there is left shift. ESR/CRPelevated. ProBNP is 3800s, however no signs of fluid overload. Electrolytes are intact. Renal function compared to prior showed no worsening, as patient has CKDIII. Has significant elevation of ALP at 394, which has also been present on blood work. LA is wnl. After providing patient with IV NS bolus of 250ml, patient felt some improvement in her fatigue, however there continues to be concern about patient requiring O2 supplementation. After the discussion with the patient and her friend ([email or web address]), decision was made to admit the patientto the hospital for further care. Patient will be admitted for planned additional management. Patient is in agreement with the plan. Amount and/or Complexity of Data Reviewed Labs: ordered. Radiology: ordered. Risk OTC drugs. Prescription drug management. Decision regarding hospitalization. Clinical Scoring & Consults Medications Administered During the ED Stay from 10/19/2024 1441 to 10/19/2024 1926 Date/Time Order Dose Route Action 10/19/2024 1900 BLISS PRESS OPERATOR sodium chloride 0.9 % bolus solution 250 mL 0 mL IV Stopped 10/19/2024 1830 BLISS PRESS OPERATOR sodium chloride 0.9 % bolus solution 250 mL 250 mL IV New Bag 10/19/2024 1830 BLISS PRESS OPERATOR morphine 2 mg/mL injection 1 mg 1 mg IV Not Given 10/19/2024 1840 BLISS PRESS OPERATOR acetaminophen (TYLENOL) tablet 500 mg 500 mg Oral Given Current Discharge Medication List CONTINUE these medications which have NOT CHANGED Details acetaminophen (TYLENOL) 500 mg tablet Take 500 mg by mouth every 12 hours. ondansetron (ZOFRAN) 4 mg Tablet Take 4 mg by mouth every 8 hours as needed for Nausea/Emesis. docusate sodium (COLACE ORAL) Take 10 mg by mouth. CALCIUM CARBONATE ORAL Take 200 mg by mouth. traMADoL (ULTRAM) 50 mg tablet Take 50 mg by mouth every 12 hours. CYCLOSPORINE OP by Ophthalmic route. ascorbic acid, vitamin C, (Vitamin C) 1,000 mg Tablet Take 2,000 mg by mouth daily. cholecalciferol, Vitamin D3, (VITAMIN D3) 25 mcg (1,000 unit) Capsule Take 2,000 Units by mouth daily. potassium CHLORIDE (KLOR-CON M20) 20 mEq Extended Release tablet Take 20 mEq by mouth daily. zinc gluconate 50 mg Tablet Take by mouth. Loperamide-Simethicone 2-125 mg Tablet Take by mouth. nitroglycerin (NITROMIST) 400 mcg/spray Aerosol, Molena Place 1 Molena under tongue every 5 minutes as needed for Chest Pain. mirabegron (MYRBETRIQ) 25 mg Extended Release 24 hour tablet Take 1 Tablet (25 mg) by mouth daily. Qty: 30 Tablet, Refills: 11 Associated Diagnoses: Urge incontinence estradioL (Estrace) 0.01% (0.1 mg/g) vaginal cream Apply 1g vaginally at night twice weekly Qty: 42.5 Gram, Refills: 11 Associated Diagnoses: Vaginal atrophy trospium (SANCTURA) 20 mg Tablet Take 1 Tablet (20 mg) by mouth 2 times daily. Qty: 60 Tablet, Refills: 11 Associated Diagnoses: OAB (overactive bladder) atorvastatin (LIPITOR) 40 mg tablet Take 40 mg by mouth daily at bedtime. gabapentin (NEURONTIN) 300 mg capsule Take 300 mg by mouth 2 times daily. One in am and one at 1400 Patient states she takes 400mg, specifically not 300mg gabapentin (NEURONTIN) 600 mg tablet Take 100 mg by mouth daily. levothyroxine 100 mcg tablet Take 100 mcg by mouth daily in the morning. omeprazole (PriLOSEC) 40 mg Capsule, Delayed Release(E.C.) Take 40 mg by mouth daily. white petrolatum ([facility], Petrolatum,) 41 % Ointment Apply to affected area 1 time daily as needed for Rash or Redness. Comments: Use for irritation STOP taking these medications fluconazole (DIFLUCAN) 150 mg tablet Comments: Reason for Stopping: nystatin (MYCOSTATIN) 100,000 unit/gram Cream Comments: Reason for Stopping: aspirin (ECOTRIN EC) 81 mg Tablet, Delayed Release (E.C.) Comments: Reason for Stopping: furosemide (LASIX) 20 mg tablet Comments: Reason for Stopping: POTASSIUM GLUCONATE ORAL Comments: Reason for Stopping: amiodarone (CORDARONE) 200 mg tablet Comments: Reason for Stopping: dabigatran etexilate (PRADAXA) 150 mg Capsule Comments: Reason for Stopping: conjugated estrogens (PREMARIN) 0.3 mg tablet Comments: Reason for Stopping: folic acid (FOLVITE) 1 mg tablet Comments: Reason for Stopping: LAST VS BP: (!) 169/65 (10/19/241929), Heart Rate: 85 bpm (10/19/241899), Resp: 20 (10/19/241929), Pulse: 84 (10/19/241929), Temp: 100 ??F (37.8 ??C) (10/19/241929), Temp src: Oral (10/19/241929), SpO2: 96 % (10/19/241929) CLINICAL IMPRESSION Final diagnoses: [J18.9] Pneumonia of left lower lobe due to infectious organism (Primary) [J10.1] Influenza A [N94.89] Adnexal mass DISPOSITION, EDUCATION AND MEDICATION RECONCILIATION Medications reconciled. See after visit summary for patient education on discharged patients. ED Disposition ED Disposition Admit Condition Stable User Aria Jesus MD Date/Time WedOct 19, 2024 6:46 PM Comment -- ATTESTATION STATEMENTS Diagnoses Diagnosis Comment Added By Time Added Pneumonia of left lower lobe due to infectious organism [J18.9] Aria Jesus MD 10/19/2024 6:47 PM Influenza A [J10.1] Aria Jesus MD 10/19/2024 6:47 PM Adnexal mass [N94.89] Aria Jesus MD 10/19/2024 9:15 PM S PRESS OPERATOR documented in this encounter Miscellaneous Notes * Care Plan - Kyung Barrera RN - 10/21/2024 5:44 AM CST Patient this shift with pending transfer to ICU bed 6 at [facility]. Currently with amiodarone drip infusing with rate well controlled. Paced rhythm present at this time. Alanis catheter in place draining cloudy yellow urine with sediment. Bilateral 20 gauge peripheral iv present. Does have bruising present related to fall prior to admission. Patient complains of weakness worsening with elevated heart rate. Has chronic pain which is managed with tylenol and tramadol. Bed in low position, call light andbedside table within reach. Problem: Skin Goal: Maintain skin integrity and/or promote wound healing by discharge Outcome: Variance Problem: Cardiovascular Goal: Achieve optimal cardiovascular function by discharge or maintain baseline function Outcome: Variance Problem: Respiratory Goal: Achieve optimal respiratory function by discharge and/or maintain baseline function Outcome: Variance Problem: Genitourinary/Renal Goal: Achieve optimal genitourinary and renal function by discharge or maintain baseline function Outcome: Variance Problem: Musculoskeletal Goal: Achieve optimal musculoskeletal function by discharge or maintain baseline function Outcome: Variance Problem: Pain, Potential/Actual Goal: Verbalizes/displays acceptable comfort level or baseline comfort level Description: Outcome: Progressing Problem: Infection Risk/Actual Goal: Infection Risk/Actual: Infection prevention, control, or resolution by discharge Description: Outcome: Progressing Problem: Safety/Fall Goal: Safety/Fall: Absence of fall, injury, harm during hospitalization Description: Absence of/reduce fall risk during current hospitalization related to: 1. History of falls 2. Mobility deficits 3. Medications 4. Mental status/LOC/awareness 5. Toileting needs 6. Volume/electrolyte status 7. Communication/sensory 8. Behavior Outcome: Progressing Problem: Gastrointestinal Goal: Achieve optimal gastrointestinal function by discharge or maintain baseline function Outcome: Progressing S PRESS OPERATOR * Care Plan - Roseline Benjamin RN - 10/20/2024 5:02 AM CST Patient alert and oriented x4. Patient on inpatient due to positive flu a diagnosis as well as a uti. Patient was fairly weak upon admission which required assistance for her to get to the bedside commode and helping with a brief change for incontinent episodes. Patient usually gets around at her as sisted living with a walker. However since she became sick she started to become weak and fell in her shower. Patient landed on her buttox and does have a red spot on her lower mid-back and complainsof mild pain with this. CT showed no acute fracture. Patient received first doses of rocephin and azithromycin last night and had frequent episodes of soft bowel movements. A stool sample was sent off to check for c-diff and that came back negative. Patient states she always has an upset stomach every time she has to take antibiotics. She also arrived to inpatient on 1 liters of oxygen via nasal cannula and since has been weaned off of that to room air. Patient oxygen saturation has been sitting at 93-94 percent room air throughout the night, even at times of sleeping. Problem: Pain, Potential/Actual Goal: Verbalizes/displays acceptable comfort level or baseline comfort level Description: Outcome: Progressing Problem: Infection Risk/Actual Goal: Infection Risk/Actual: Infection prevention, control, or resolution by discharge Description: Outcome: Progressing Problem: Safety/Fall Goal: Safety/Fall: Absence of fall, injury, harm during hospitalization Description: Absence of/reduce fall risk during current hospitalization related to: 1. History of falls 2. Mobility deficits 3. Medications 4. Mental status/LOC/awareness 5. Toileting needs 6. Volume/electrolyte status 7. Communication/sensory 8. Behavior Outcome: Progressing S PRESS OPERATOR * Gen AI ED Handoff - GENERATIVE AI HANDOFF NOTE - 10/19/2024 7:19 PM BLISS PRESS OPERATOR ##Situation##: Patient ( ) is a 89-year-old female who has been in the ER for 4 hours. She came to the ER due to fever chills general weakness cough. The patient's most recent care team on record included: Nadja Holliday. ##Background##: This patient has allergies to Nitrofurantoin, Hyoscyamine, Milk Containing Products (dairy), Morphine, Phenazopyridine, Sulfa (sulfonamide Antibiotics), Trimethoprim. ##Assessment##: Patient's most recent vitals recorded in flowsheets were as follows: *BP: 141/50 *Temp: 37.1C, 98.8F *Resp: 22 *Pulse oximetry: 98% *Pulse: 85 Last recorded oxygen source was nasal cannula. The patient, Shanna Lang, an 89-year-old female, presents with influenza- like symptoms including fever, chills, general weakness, and cough. She reports a recent fall in the shower while using her walker, resulting in pain in the middle area of her buttocks and difficulty walking. The patient has decreased urinary output, decreased oral intake, and vomited after taking her medication. She has a history of afib, arthritis, hypertension, hyperlipidemia, pacemaker, neuropathy, scoliosis, hypothyroidism, and osteoporosis. She also has issues with holding urine (urge incontinence) and overactive bladder. The patient is in acute distress, ill-appearing, and has pelvic motion tenderness and bilateral hip joint pain. Cervical adenopathy is present. Laboratory results indicate abnormalities including positive Influenza A, low hemoglobin, hematocrit, and albumin, elevated BUN, creatinine, alkaline phosphatase, AST, and CRP, and a high PROBNP level. Imaging shows no acute osseous pathology but reveals a large cystic structure in the left posterior adnexal space and degenerative changes in the lumbar spine. ##Recommendation##: Admit the patient for further evaluation and management. Obtain a chest X-ray to evaluate for pneumonia and manage symptoms of weakness and cough. Assess hydration status and consider fluid replacement. Educate the patient on the importance of fluid intake. Obtain pelvic and hip X-rays to rule out fractures and assess gait and mobility. Provide pain management as needed. Reassess blood pressure and consider alternative medication administration methods if vomiting persists. Educate the patient on the importance of medication adherence. Further evaluation of the musculoskeletal soft tissue structures with MRI may be beneficial. Recommend a nonemergent pelvic ultrasound to further evaluate the large cystic structure in the left posterior adnexal space. Continue current medications and monitor for any changes in the patient's condition. This summary was created by generative AI. The responses are meant to enhance, not replace normal workflow. Please contact the ED nurse for any follow up or additional information. S PRESS OPERATOR documented in this encounter Plan of Treatment Upcoming Encounters Date Type Department Care Team (Late st Contact Info) Description 12/14/2024 1:30 PM CDT Office Visit [facility] [place] [address] [place] [address] Marielena Chong FNP [address] [place] [address] 03/01/2025 1:20 PM CDT Office Visit [facility] [place] [address] [place] [address] Boni Romo III, MD [address] [place] [address] Pending Results Name Type Priority Associated Diagnoses Date /Time T4 FREE Lab Stat 10/20/2024 11: 50 PM BLISS PRESS OPERATOR Scheduled Orders Name Type Priority Associated Diagnoses Orde r Schedule OXYGEN VIA DEVICE TO KEEP O2 SAT ABOVE Respiratory Care Routine Continuous unti l discontinued starting 10/19/2024 RT ASSESS AND TREAT Respiratory Care Routine ONE TIME for 1 Occurrences starting 10/19/2024 until 10/19/2024 PT EVAL AND TREAT PT Routine ONE JAYNE E for 1 Occurrences starting 10/19/2024 until 10/19/2024 EKG 12-LEAD ECG Stat ONE TIME for 1 Occurrences starting 10/20/2024 until 10/20/2024 EKG 12-LEAD ECG Stat ONE TIME for 1 Occurrences starting 10/20/2024 until 10/20/2024 EKG 12-LEAD ECG Stat ONE TIME for 1 Occurrences starting 10/21/2024 until 10/21/2024 T4 FREE Lab Stat ONE TIME for 1 Occurrences starting 10/21/2024 until 10/21/2024 documented as of this encounter Procedures Procedure Name Priority Date/Time Associated Diagnosis Comments TROPONIN 6 HR, 5TH GEN Timed Study 10/21/2024 3:20 AM BLISS PRESS OPERATOR XR CHEST PA OR AP 1 VW Stat 10/21/2024 1:13 AM BLISS PRESS OPERATOR TROPONIN 2 HR, 5TH GEN Timed Study 10/20/2024 11:45 PM BLISS PRESS OPERATOR TROPONIN BASELINE, 5TH GEN Stat 10/20/2024 9:38 PM BLISS PRESS OPERATOR C. DIFFICILE DETECTION Routine 10/20/2024 12:25 AM BLISS PRESS OPERATOR GI PATHOGEN PCR PANEL Routine 10/19/2024 11:08 PM BLISS PRESS OPERATOR URINALYSIS MICROSCOPY ONLY Stat 10/19/2024 11:08 PM BLISS PRESS OPERATOR URINALYSIS W/REFLEX MICROSCOPIC Stat 10/19/2024 11:08 PM BLISS PRESS OPERATOR LACTIC ACID Stat 10/19/2024 6:08 PM BLISS PRESS OPERATOR CBC WITH DIFFERENTIAL Stat 10/19/2024 6:08 PM BLISS PRESS OPERATOR SEDIMENTATION RATE Stat 10/19/2024 6: 08 PM BLISS PRESS OPERATOR C-REACTIVE PROTEIN Stat 10/19/2024 6: 08 PM BLISS PRESS OPERATOR TSH Routine 10/19/2024 6:08 PM BLISS PRESS OPERATOR BRAIN NATRIURETIC PEPTIDE, BNP OR PROBNP Stat 10/19/2024 6:08 PM BLISS PRESS OPERATOR MAGNESIUM LEVEL Stat 10/19/2024 6:08 PM BLISS PRESS OPERATOR COMPREHENSIVE METABOLIC PANEL Stat 10/19/2024 6:08 [address]ESS [address] PELVIS WO CONTRAST Stat 10/19/2024 4:49 PM BLISS PRESS OPERATOR XR CHEST PA OR AP 1 VW Stat 10/19/2024 4:48 PM BLISS PRESS OPERATOR COVID-19 ANTIGEN Stat 10/19/2024 2:55 PM BLISS PRESS OPERATOR INFLUENZA VIRUS A AND B, ANTIGEN DETECTION Stat 10/19/2024 2:55 PM BLISS PRESS OPERATOR documented in this encounter Results * (ABNORMAL) TROPONIN 6 HR, 5TH GEN (10/21/2024 3:20 AM BLISS PRESS OPERATOR) TROPONIN T, 6 HR 5TH GEN 40(H) <11 ng/L 10/21/2024 3:51 AM BLISS PRESS OPERATOR [facility] 6HR TROPONIN T 1 See Interp. 10/21/2024 3:51 AM BLISS PRESS OPERATOR [facility] Blood BLOOD SPECIMEN / Unknown Venipuncture / Unknown 10/21/2024 3:20 AM BLISS PRESS OPERATOR 10/21/2024 3:24 AM BLISS PRESS OPERATOR Narrative [facility] - 10/21/2024 3:51 AM BLISS PRESS OPERATOR Troponin elevated. Delta indeterminate. Carlos Green MD CHEMISTRY ORDERABLES Final Resul t [facility] CLIA # [id number] [address] [place] [address] * XR CHEST PA OR AP 1 VW (10/21/2024 1:13 AM BLISS PRESS OPERATOR) Anatomical Region Laterality Modality Chest Computed Radiogr aphy 10/21/2024 1:05 AM BLISS PRESS OPERATOR Impressions 10/21/2024 5:53 AM BLISS PRESS OPERATOR IMPRESSION: Please see below. Exam: XR CHEST PA OR AP 1 VW Date/Time of Exam: 10/21/2024 1:13 AM Reason For Exam: Congestive Heart Failure CHF. Diagnosis: Pneumonia of left lower lobe due to infectious organism; Influenza A; Adnexal mass. Comparison: ??10/19/2024. Findings: Status post median sternotomy and left subclavian CCD placement. Suboptimal inspiratory effort is present with resultant bronchovascular crowding. Stable cardiomediastinal silhouette with persistent left basilar atelectasis versus airspace disease. The right lung is clear. No pleural effusion or pneumothorax is identified. Asymmetric biapical pleural thickening/scar formation, left greater than right. Colonic interposition beneath right hemidiaphragm. Marked narrowing of the acromial humeral distance is present bilaterally with mild secondary glenohumeral osteoarthritis/cuff arthropathy. Impression: 1. ??Persistent left basilar atelectasis versus airspace disease. Narrative Procedure Note Keyshawn Mi MD - 10/21/2024 IMPRESSION: Please see below. Exam: XR CHEST PA OR AP 1 VW Date/Time of Exam: 10/21/2024 1:13 AM Reason For Exam: Congestive Heart Failure CHF. Diagnosis: Pneumonia of left lower lobe due to infectious organism; Influenza A; Adnexal mass. Comparison: 10/19/2024. Findings: Status post median sternotomy and left subclavian CCD placement. Suboptimal inspiratory effort is present with resultant bronchovascular crowding. Stable cardiomediastinal silhouette with persistent left basilar atelectasis versus airspace disease. The right lung is clear. No pleural effusion or pneumothorax is identified. Asymmetric biapical pleural thickening/scar formation, left greater than right. Colonic interposition beneath right hemidiaphragm. Marked narrowing of the acromial humeral distance is present bilaterally with mild secondary glenohumeral osteoarthritis/cuff arthropathy. Impression: 1. Persistent left basilar atelectasis versus airspace disease. us Carlos Green MD DIAGNOSTIC IMAGING ORDERABLES Fi nal Result * (ABNORMAL) TROPONIN 2 HR, 5TH GEN (10/20/2024 11:45 PM BLISS PRESS OPERATOR) TROPONIN T, 2 HR 5TH GEN 40(H) <=10 ng/L 10/21/2024 12:19 AM BLISS PRESS OPERATOR [facility] 2HR TROPONIN T 1 See Interp. 10/21/2024 12:19 AM BLISS PRESS OPERATOR [facility] Blood BLOOD SPECIMEN / Unknown Venipuncture / Unknown 10/20/2024 11:45 PM BLISS PRESS OPERATOR 10/20/2024 11:50 PM BLISS PRESS OPERATOR Narrative [facility] - 10/21/2024 12:19 AM BLISS PRESS OPERATOR Troponin elevated. Delta not changing. us Carlos Green MD CHEMISTRY ORDERABLES Final [facility]ul t [id number] [address] [place] [id number] * (ABNORMAL) TROPONIN BASELINE, 5TH GEN (10/20/2024 9:38 PM BLISS PRESS OPERATOR) Pathologist [facility] TROPONIN T, BASELINE 5TH GEN 39(H) <=10 ng/L 10/20/2024 9:55 PM BLISS PRESS OPERATOR [facility] Blood BLOOD SPECIMEN / Unknown Venipuncture / Unknown 10/20/2024 9:38 PM BLISS PRESS OPERATOR 10/20/2024 9:38 PM BLISS PRESS OPERATOR Narrative [facility] - 10/20/2024 9:55 PM BLISS PRESS OPERATOR Troponin elevated. Carlos Green MD CHEMISTRY ORDERABLES Final Resul t [facility] # [id number] [address] [place] [id number] * C. DIFFICILE DETECTION (10/20/2024 12:25 AM BLISS PRESS OPERATOR) [facility] C DIFFICILE TOXIN NOT DETECTED Not Detected 10/20/2024 1:[address] [facility] Stool STOOL SPECIMEN / Unknown Collection / Unknown 10/20/2024 12:25 AM BLISS PRESS OPERATOR 10/20/2024 12:50 AM BLISS PRESS OPERATOR Narrative [facility] - 10/20/2024 1:18 AM BLISS PRESS OPERATOR This assay tests for C. difficile Toxin A and/or Toxin B, by non-PCR methodology. Mariann Onofre APN MICROBIOLOGY - GENERAL ORD ERABLES Final Result [facility] # [id number] [address] [place] [id number] * (ABNORMAL) URINALYSIS MICROSCOPY ONLY (10/19/2024 11:08 PM BLISS PRESS OPERATOR) Pathologist [facility] WBC UA 51-100(A) 0 - 2 /hpf 10/19/2024 11:[address] [facility] RBC UA 6-10(A) 0 - 2 /hpf 10/19/2024 11:32 PM BLISS PRESS OPERATOR [facility] BACTERIA UA 1+(A) Negative /hpf 10/19/2024 11:32 PM BLISS PRESS OPERATOR [facility] EPITHELIAL CELLS, URINE 0-5 0 - 5 /hpf 10/19/2024 11:32 PM BLISS PRESS OPERATOR [facility] Urine URINE SPECIMEN OBTAINED BY CLEAN CATCH PROCEDURE / Unknown Collection / Unknown 10/19/2024 11:08 PM BLISS PRESS OPERATOR 10/19/2024 11:24 PM BLISS PRESS OPERATOR Aria Jesus MD URINE ORDERABLES Final Result [facility] CLIA # [id number] [address] [place] [address] [phone] * GI PATHOGEN PCR PANEL (10/19/2024 11:08 PM BLISS PRESS OPERATOR) Pathologist [facility] GI Pathogen PCR panel NOT DETECTED No nucleic acids detected. 10/20/2024 7:58 PM BLISS PRESS OPERATOR [facility] Stool STOOL SPECIMEN / Unknown Collection / Unknown 10/19/2024 11:08 PM BLISS PRESS OPERATOR 10/19/2024 11:13 PM BLISS PRESS OPERATOR Sara [facility] - 10/20/2024 7:58 PM BLISS PRESS OPERATOR The Film Array GI Panel is a multiplexed nucleic acid detection test for 22 targets of bacteria, viruses, and parasites in stool that cause infectious diarrhea. Bacteria: Campylobacter C. difficile Plesiomonas shigelloides Salmonella Vibrio Vibrio cholerae Yersinia enterocolitica Enteroaggregative E. Coli (EAEC) Enteropathogenic E. Coli (EPEC) Enterotoxigenic E. Coli (ETEC) Shiga-like toxin-producing E. Coli (STEC) E. Coli O157 Shigella/Enteroinvasive E. Coli (EIEC) Viruses: Adenovirus F 40/41 Astrovirus Norovirus GI/GII Rotavirus A Sapovirus Parasites: Cryptosporidium Cyclospora cayetanensis Entamoeba histolytica Giardia duodenalis Mariann Onofre APN MICROBIOLOGY - GENERAL ORD ERABLES Final Result Performing Organization Address City/[facility]/ZIP Co de Phone Number [facility] CLIA # [id number] [address] [place] [address] [place] [address] * (ABNORMAL) URINALYSIS WITH REFLEX MICROSCOPIC (10/19/2024 11:08 PM BLISS PRESS OPERATOR) COLOR UA Yellow Pale to Dark Yellow 10/19/2024 11:[address] [facility] CLARITY UA Slightly Cloudy(A) Clear 10/19/2024 11:[address] [facility] SPECIFIC GRAVITY UA >=1.030 1.003 - 1.035 10/19/2024 11:[address] [facility] PH UA 6.0 5.0 - 8.0 10/19/2024 11:[address] [facility] LEUKOCYTE ESTERASE UA 1+(A) Negative 10/19/2024 11:[address] [facility] NITRITE UA Negative Negative 10/19/2024 11:[address] [facility] PROTEIN UA 2+(A) Negative 10/19/2024 11:[address] [facility] GLUCOSE UA Negative Negative 10/19/2024 11:[address] [facility] KETONES UA Trace(A) Negative 10/19/2024 11:[address] [facility] UROBILINOGEN UA 0.2 <2.0 mg/dL 11:[address] [facility] BILIRUBIN UA Negative Negative 10/19/2024 11:[address] [facility] BLOOD UA Trace(A) Negative 10/19/2024 11:[address] [facility] Urine URINE SPECIMEN OBTAINED BY CLEAN CATCH PROCEDURE / Unknown Collection / Unknown 10/19/2024 11:08 PM BLISS PRESS OPERATOR 10/19/2024 11:24 PM BLISS PRESS OPERATOR Aria Jesus MD URINE ORDERABLES Final Result [facility] CLIA # [id number] [address] [place] [phone] * (ABNORMAL) TSH (10/19/2024 6:08 PM BLISS PRESS OPERATOR) TSH 0.24(L) 0.27 - 4.20 uIU/mL 10/20/2024 9:05 PM BLISS PRESS OPERATOR [facility] Blood Collection / Unknown 10/19/2024 6:08 PM BLISS PRESS OPERATOR 10/19/2024 6:15 PM BLISS PRESS OPERATOR Result Jennifer Green MD CHEMISTRY ORDERABLES Final Resul t Performing Organization Address City/[facility]/ZIP Co de Phone Number [facility] CLIA # [id number] [address] [place] [phone] * MAGNESIUM LEVEL (10/19/2024 6:08 PM BLISS PRESS OPERATOR) MAGNESIUM 2.3 1.6 - 2.4 mg/dL 10/19/2024 6:32 PM BLISS PRESS OPERATOR [facility] Blood Collection / Unknown 10/19/2024 6:08 PM BLISS PRESS OPERATOR 10/19/2024 6:15 PM BLISS PRESS OPERATOR Result Jennifer Jesus MD CHEMISTRY ORDERABLES Final Resu lt Performing Organization Address City/[facility]/ZIP Co de Phone Number [facility] CLIA # [id number] [address] [place] [address] [phone] * (ABNORMAL) C-REACTIVE PROTEIN (10/19/2024 6:08 PM BLISS PRESS OPERATOR) CRP 79.9(H) <5.0 mg/L 10/19/2024 6:32 PM BLISS PRESS OPERATOR [facility] Blood Collection / Unknown 10/19/2024 6:08 PM BLISS PRESS OPERATOR 10/19/2024 6:15 PM BLISS PRESS OPERATOR us Aria Jesus MD CHEMISTRY ORDERABLES Final Resu lt [facility] CLIA # [id number] [address] [place] [phone] * LACTIC ACID (10/19/2024 6:08 PM BLISS PRESS OPERATOR) LACTIC ACID 1.4 <=2.0 mmol/L 10/19/2024 6:30 PM BLISS PRESS OPERATOR [facility] Blood BLOOD SPECIMEN / Unknown Collection / Unknown 10/19/2024 6:08 PM BLISS PRESS OPERATOR 10/19/2024 6:15 PM BLISS PRESS OPERATOR us Aria Jesus MD CHEMISTRY ORDERABLES Final Resu lt Performing Organization Address [facility] de Phone Number [id number] [address] [place] [phone] * (ABNORMAL) BRAIN NATRIURETIC PEPTIDE, BNP OR PROBNP (10/19/2024 6:08 PM BLISS PRESS OPERATOR) PROBNP, N TERMINAL 3,879(H) 0 - 450 pg/mL 10/19/2024 6:32 PM BLISS PRESS OPERATOR [facility] Comment: INTERPRETIVE COMMENT based on diagnosis: Diagnostic NT pro-BNP cutoffs for Heart Failure in the absence of renal failure is suggested for the following ranges ?? <75 ??years: <125 pg/mL >=75 ??years: <450 pg/mL Exclusionary rule out cut-point for Acute Decompensated Heart Failure(ADHF) All ages: <300 pg/mL Diagnostic NT pro-BNP cutoffs for Acute Decompensated Heart Failure(ADHF) in the absence of renal failure is suggested for the following ages ?? <50 ??years: > 450 ??pg/mL 50-75 years: > 900 ??pg/mL ?? >75 ??years: >1800 pg/mL Blood Collection / Unknown 10/19/2024 6:08 PM BLISS PRESS OPERATOR 10/19/2024 6:15 PM BLISS PRESS OPERATOR us Aria Jesus MD CHEMISTRY ORDERABLES Final Resu lt Performing Organization Address City/[facility] Co de Phone Number [facility] CLIA # [id number] [address] [place] [address] [phone] * (ABNORMAL) COMPREHENSIVE METABOLIC PANEL (10/19/2024 6:08 PM [facility]) SODIUM 138 136 - 145 mmol/L 10/19/2024 6:[address] [facility] POTASSIUM 4.2 3.5 - 5.1 mmol/L 10/19/2024 6:[address] [facility] CHLORIDE 101 98 - 107 mmol/L 10/19/2024 6:[address] [facility] CO2 22 22 - 29 mmol/L 10/19/2024 6:[address] [facility] CALCIUM 8.7(L) 8.8 - 10.2 mg/dL 10/19/2024 6:[address] [facility] BUN 27(H) 8 - 23 mg/dL 10/19/2024 6:[address] [facility] CREATININE 1.23(H) 0.51 - 0.95 mg/dL 10/19/2024 6:[address] [facility] Comment:The GFR result is no t clinically significant on patients <18 or >70 years of age. GLUCOSE 97 74 - 99 mg/dL 10/19/2024 6:[address] [facility] TOTAL PROTEIN 7.2 6.6 - 8.7 g/dL 10/19/2024 6:[address] [facility] ALBUMIN 3.8(L) 4.0 - 4.9 g/dL 10/19/2024 6:[address] [facility] BILIRUBIN TOTAL 0.6 <=1.2 mg/dL 10/19/2024 6:[address] [facility] ALKALINE PHOSPHATASE 394(H) 35 - 104 U/L 10/19/2024 6:[address] [facility] AST 43(H) 0 - 35 U/L 10/19/2024 6:[address] [facility] ALT 32 0 - 35 U/L 10/19/2024 6:[address] [facility] GFR 42 mL/min/1.7 3 sq meter 10/19/2024 6:[address] [facility] Comment:eGFR calculated with 2020 CKD-EPI equation. Vegetarian diet, extremely high or low muscle mass, and may affect results. Cystatin C with Glomerular Filtration Rate is a suitable alternative for these patients. ANION GAP 15 5 - 20 mmol/L 10/19/2024 6:[address] [facility] Blood Collection / Unknown 10/19/2024 6:08 PM BLISS PRESS OPERATOR 10/19/2024 6:15 PM BLISS PRESS OPERATOR Aria Jesus MD CHEMISTRY ORDERABLES Final Resu lt [facility] CLIA # [id number] [address] [place] [address] [phone] * (ABNORMAL) SEDIMENTATION RATE (10/19/2024 6:08 PM BLISS PRESS OPERATOR) ESR (SEDIMENTATION RATE) 36(H) 0 - 30 mm/Hr 10/19/2024 6:[address] [facility] Blood Collection / Unknown 10/19/2024 6:08 PM BLISS PRESS OPERATOR 10/19/2024 6:15 PM BLISS PRESS OPERATOR Narrative [facility] - 10/19/2024 6:20 PM BLISS PRESS OPERATOR Tube Lot: #[id number] Exp Date: 04/05/2026 SR 0125-1 EXP. 03/10/25 SR 0125-2 EXP. 03/10/25 us Aria Jesus MD HEMATOLOGY ORDERABLES Final Res ult [facility] CLIA # [id number] [address] [place] [address] [phone] * (ABNORMAL) CBC WITH DIFFERENTIAL (10/19/2024 6:08 PM BLISS PRESS OPERATOR) WBC 7.7 4.0 - 10.0 K/uL 10/19/2024 6:[address] [facility] RBC 3.55(L) 3.93 - 5.22 M/uL 10/19/2024 6:[address] [facility] HEMOGLOBIN 10.7(L) 11.2 - 15.7 g/dL 10/19/2024 6:[address] [facility] HEMATOCRIT 33.7(L) 34.1 - 44.9 % 10/19/2024 6:[address] [facility] MCV 94.9(H) 79.4 - 94.8 fL 10/19/2024 6:[address] [facility] MCH 30.1 25.6 - 32.2 pg 10/19/2024 6:[address] [facility] MCHC 31.8(L) 32.2 - 35.5 g/dL 10/19/2024 6:[address] [facility] RDW 14.7(H) 11.0 - 14.5 % 10/19/2024 6:[address] [facility] RDW-STDEV 51.2 36.9 - 56.9 fL 10/19/2024 6:[address] [facility] PLATELETS 166 163 - 337 K/uL 10/19/2024 6:[address] [facility] MPV 10.2 10.0 - 14.8 fL 10/19/2024 6:[address] [facility] NEUTROPHILS 85(H) 34 - 71 % 10/19/2024 6:[address] [facility] LYMPHOCYTES 6(L) 19 - 52 % 10/19/2024 6:[address] [facility] MONOCYTES 8 5 - 13 % 10/19/2024 6:[address] [facility] EOSINOPHILS 0(L) 1 - 6 % 10/19/2024 6:[address] [facility] BASOPHILS 0 0 - 1 % 10/19/2024 6:[address] [facility] IMMATURE GRANULOCYTES 0 % 10/19/2024 6:[address] [facility] NEUTROPHIL ABSOLUTE 6.52(H) 1.56 - 6.13 K/uL 10/19/2024 6:[address] [facility] LYMPHOCYTE ABSOLUTE 0.49(L) 1.20 - 3.40 K/uL 10/19/2024 6:18 PM BLISS PRESS OPERATOR [facility] MONOCYTE ABSOLUTE 0.65(H) 0.24 - 0.36 K/uL 10/19/2024 6:18 PM BLISS PRESS OPERATOR [facility] EOSINOPHIL ABSOLUTE 0.01(L) 0.04 - 0.36 K/uL 10/19/2024 6:18 PM BLISS PRESS OPERATOR [facility] BASOPHILS ABSOLUTE 0.02 0.01 - 0.08 K/uL 10/19/2024 6:18 PM BLISS PRESS OPERATOR [facility] IMMATURE GRANULOCYTES ABSOLUTE 0.02 K/uL 10/19/2024 6:18 PM BLISS PRESS OPERATOR [facility] Blood Collection / Unknown 10/19/2024 6:08 PM BLISS PRESS OPERATOR 10/19/2024 6:15 PM BLISS PRESS OPERATOR us Aria Jesus MD HEMATOLOGY ORDERABLES Final Res ult [facility] [id number] [address] [place] [phone] * CT PELVIS WO CONTRAST (10/19/2024 4:49 PM BLISS PRESS OPERATOR) Anatomical Region Laterality Modality Pelvis Computed Tomogra phy 10/19/2024 4:49 PM BLISS PRESS OPERATOR Impressions 10/19/2024 5:05 PM BLISS PRESS OPERATOR IMPRESSION: Please see below. Exam: CT PELVIS WO CONTRAST Date/Time of Exam: 10/19/2024 4:49 PM Reason For Exam: Pelvis pain, stress fracture suspected, no prior imaging, fall from standing with pelvis and bilateral hip pain.. Diagnosis: See Reason for Exam. Technique: Axial tomograms obtained through the pelvis without IV contrast. Findings: No acute osseous pathology of pelvis or of either hip. Mild degenerative change of symphysis pubis. Imaged lower lumbar spine with marked spondylosis and degenerative disc disease. Enthesopathy of greater trochanter of both femurs. Intrapelvic contents with large rounded cystic structure averaging 7.3 cm in greatest diameter within left posterior adnexal space. Surgically absent uterus. Colonic diverticulosis. IMPRESSION: No acute osseous pathology. Further evaluation of musculoskeletal soft tissue structures with MRI may be of benefit as clinically warranted. Nonspecific large 7.3 cm cystic structure within left posterior adnexal space of which further correlation with nonemergent pelvic ultrasound is recommended. Narrative Procedure Note Enid Burkett MD - 10/19/2024 IMPRESSION: Please see below. Exam: CT PELVIS WO CONTRAST Date/Time of Exam: 10/19/2024 4:49 PM Reason For Exam: Pelvis pain, stress fracture suspected, no prior imaging, fall from standing with pelvis and bilateral hip pain.. Diagnosis: See Reason for Exam. Technique: Axial tomograms obtained through the pelvis without IV contrast. Findings: No acute osseous pathology of pelvis or of either hip. Mild degenerative change of symphysis pubis. Imaged lower lumbar spine with marked spondylosis and degenerative disc disease. Enthesopathy of greater trochanter of both femurs. Intrapelvic contents with large rounded cystic structure averaging 7.3 cm in greatest diameter within left posterior adnexal space. Surgically absent uterus. Colonic diverticulosis. IMPRESSION: No acute osseous pathology. Further evaluation of musculoskeletal soft tissue structures with MRI may be of benefit as clinically warranted. Nonspecific large 7.3 cm cystic structure within left posterior adnexal space of which further correlation with nonemergent pelvic ultrasound is recommended. us Aria Jesus MD CT ORDERABLES Final Result * XR CHEST PA OR AP 1 VW (10/19/2024 4:48 PM BLISS PRESS OPERATOR) Anatomical Region Laterality Modality Chest Computed Radiogr aphy 10/19/2024 4:49 PM BLISS PRESS OPERATOR Narrative 10/19/2024 5:04 PM BLISS PRESS OPERATOR XR CHEST PA OR AP 1 VW Reason For Exam: Cough and Congestion, Hypoxia. Diagnosis: See Reason for Exam. COMPARISON: 07/17/2023 FINDINGS: Cardiomediastinal silhouette is within normal limits. ??Mild left basilar atelectasis/consolidation is noted. Pacer is in place. No pneumothorax or large pleural effusion. Follow-up radiograph to ensure resolution recommended. Procedure Note Eugenio Barbosa MD - 10/19/2024 XR CHEST PA OR AP 1 VW Reason For Exam: Cough and Congestion, Hypoxia. Diagnosis: See Reason for Exam. COMPARISON: 07/17/2023 FINDINGS: Cardiomediastinal silhouette is within normal limits. Mild left basilar atelectasis/consolidation is noted. Pacer is in place. No pneumothorax or large pleural effusion. Follow-up radiograph to ensure resolution recommended. Aria Jesus MD DIAGNOSTIC IMAGING ORDERABLES F inal Result * COVID-19 ANTIGEN (10/19/2024 2:55 PM BLISS PRESS OPERATOR) COVID-19 ANTIGEN Presumptive Negative Presumptive Negative 10/19/2024 3:21 PM BLISS PRESS OPERATOR [facility] Upper Respiratory ANTERIOR NARES SWAB / Unknown Collection / Unknown 10/19/2024 2:55 PM BLISS PRESS OPERATOR 10/19/2024 3:05 PM BLISS PRESS OPERATOR [facility] - 10/19/2024 3:21 PM BLISS PRESS OPERATOR Joaquina SARS antigen test has been authorized by FDA under an emergency use authorization (EUA) and has been authorized only for the detection of proteins from SARS-CoV-2 and influenza, not for any other viruses or pathogens. Joaquina SARS Antigen FARIBA is intended for the simultaneous qualitative detection and differentiation of nucleocapsid protein antigen from SARS-CoV-2 directly from nasopharyngeal (CUSTOM BOOKBINDER) and nasal (NS) swab specimens collected from individuals who are suspected of respiratory viral infection consistent with COVID-19 by their healthcare provider within the first five (5) days of symptom onset when tested at least twice over three days with at least 48 hours between tests, or from individuals without symptoms or other epidemiological reasons to suspect COVID-19 when tested at least three times over five days with at least 48 hours between tests. This test is only authorized for the duration of the declaration that circumstances exist justifying the authorization of emergency use of in vitro diagnostics for detection and/or diagnosis of the virus that causes COVID-19 under Section 564(b)(1) of the Act, 21 U.S.C. ?? 360bbb-3(b)(1), unless the authorization is terminated or revoked sooner. Negative results should be treated as presumptive and confirmed with a molecular assay, if necessary for patient care. ??Serial testing should be performed in individuals with negative results at least twice over three days (with 48 hours between tests) for symptomatic individuals or from individuals without symptoms or other epidemiological reasons to suspect COVID-19 when tested at least three times over five days with at least 48 hours between tests. us Aria Jesus MD MICROBIOLOGY - GENERAL ORDERABL ES Final Result Performing Organization Address [facility] Co de Phone Number [facility] [id number] [address] [place] [address] [phone] * (ABNORMAL) INFLUENZA VIRUS A AND B, ANTIGEN DETECTION (10/19/2024 2:55 PM BLISS PRESS OPERATOR) [facility] INFLUENZA A AG DETECTED(A) Not Detected 10/19/2024 3:21 PM BLISS PRESS OPERATOR [facility] INFLUENZA B AG NOT DETECTED Not Detected 10/19/2024 3:21 PM BLISS PRESS OPERATOR [facility] Upper Respiratory ENTIRE NASOPHARYNX / Unknown Collection / Unknown 10/19/2024 2:55 PM BLISS PRESS OPERATOR 10/19/2024 3:05 PM BLISS PRESS OPERATOR Narrative [facility] - 10/19/2024 3:21 PM BLISS PRESS OPERATOR Negative results do not rule out infection. ??If clinically indicated, consider PCR testing which is more sensitive than antigen testing. ??If PCR testing is desired, consult with your local laboratory as sample recollection may be required. us Aria Jesus MD MICROBIOLOGY - GENERAL ORDERABL ES Final Result Performing Organization Address [facility] Phone Number [facility] [id number] [address] [place] [address] [phone] documented in this encounter Visit Diagnoses Diagnosis Pneumonia of left lower lobe due to infectious organism- Primary Pneumonia of left lower lobe due to infectious organism Influenza A Influenza with other respiratory manifestations Adnexal mass Other specified symptom associated with female genital organs Influenza A Influenza with other respiratory manifestations HTN (hypertension) Unspecified essential hypertension afib Heart disease, unspecified Arthralgia of pelvic region, unspecified laterality Fall from standing Unspecified fall Other specified hypothyroidism Adnexal mass Other specified symptom associated with female genital organs documented in this encounter Administered Medications Active Administered Medications - up to 3 most recent administrations Medication Order MAR Action Action Date Dose Rate Site acetaminophen (TYLENOL) tablet 500 mg 500 mg, Oral, EVERY 12 HOURS, First dose on Wed10/20/24 at 0900, Until Discontinued, Routine, Previous Med: acetaminophen (TYLENOL) 500 mg tablet - Orig Sig - Take 500 mg by mouth every 12 hours. Given 10/20/2024 8:11 PM BLISS PRESS OPERATOR 500 mg acetaminophen (TYLENOL) tablet 650 mg 650 mg, Oral, EVERY 4 HOURS PRN, Starting on 10/21/24 at 0426, Until Discontinued, Pain, Temperature, over 100.4, Routine Given 10/21/2024 6:59 AM BLISS PRESS OPERATOR 650 mg amiodarone in dextrose (ISO-OSM) (NEXTERONE) 360 mg/200 mL (1.8 mg/mL) IV infusion 1 mg/min (33.3333 mL/hr, rounded to 33.33 mL/hr), IV, CONTINUOUS, Starting on Wed10/21/24 at 0400, Until Wed10/21/24 at 0959 New Bag 10/21/2024 4:24 AM BLISS PRESS OPERATOR 1 mg/min 33.33 mL/hr amiodarone in dextrose (ISO-OSM) (NEXTERONE) 360 mg/200 mL (1.8 mg/mL) IV infusion 0.5 mg/min (16.6667 mL/hr, rounded to 16.67 mL/hr), IV, CONTINUOUS, Starting on Wed10/21/24 at 1000, Until Discontinued azithromycin (ZITHROMAX) 500 mg in sodium chloride 0.9 % 250 mL IVPB 500 mg, IV, EVERY 24 HOURS, 3 doses, First dose on [place] 10/19/24 at 2100, Last dose on Wed10/21/24 at 2100, Routine, Antibiotic Indication: Pneumonia - Community-acquired(CAP) New Bag 10/20/2024 8:53 PM BLISS PRESS OPERATOR 500 mg 285 mL/hr New Bag 10/19/2024 9:37 PM BLISS PRESS OPERATOR 500 mg 285 mL/hr benzonatate (TESSALON) capsule 100 mg 100 mg, Oral, THREE TIMES DAILY, 6 doses, First dose on [place] 10/19/24 at 2045, Last dose on Wed10/21/24 at 1300, Routine Given 10/20/2024 5:49 PM BLISS PRESS OPERATOR 100 mg Given 10/20/2024 12:30 PM BLISS PRESS OPERATOR 100 mg Given 10/20/2024 8:49 AM BLISS PRESS OPERATOR 100 mg calcium as carbonate (TUMS) 500 mg (200 mg elemental) chewable tablet 500 mg 500 mg, Oral, TWO TIMES DAILY PRN, Starting on [place] 10/19/24 at 2030, Until Discontinued, Dyspepsia, Indigestion, Previous Med: CALCIUM CARBONATE ORAL - Orig Sig - Take 200 mg by mouth. cefTRIAXone (ROCEPHIN) 2,000 mg in sodium chloride 0.9% 50 mL IVPB (MBP) 2,000 mg, IV, EVERY 24 HOURS, First dose on [place] 10/19/24 at 2100, Until Discontinued, Routine, Antibiotic Indication: Pneumonia - Community-acquired(CAP) New Bag 10/20/2024 8:21 PM BLISS PRESS OPERATOR 2,000 mg 118 mL/ hr New Bag 10/19/2024 8:57 PM BLISS PRESS OPERATOR 2,000 mg 118 mL/hr digoxin (LANOXIN) tablet 125 mcg 125 mcg, Oral, DAILY, First dose on [place] 10/22/24 at 0900, Until Discontinued, Routine, Reason for Use: Atrial fibrillation (rate control) docusate sodium (COLACE) capsule 100 mg 100 mg, Oral, TWO TIMES DAILY, First dose on [place] 10/19/24 at 2100, Until Discontinued, Previous Med: docusate sodium (COLACE ORAL) - Orig Sig - Take 10 mg by mouth. Given 10/20/2024 8:49 AM BLISS PRESS OPERATOR 100 mg Given 10/19/2024 9:00 PM BLISS PRESS OPERATOR 100 mg enoxaparin (LOVENOX) injection 60 mg 60 mg (rounded from 58.5 mg = 1 mg/kg ? 58.5 kg), subCUT, EVERY 12 HOURS, First dose on 10/21/24 at 1700, Until Discontinued, Routine, Indication: A Fib gabapentin (NEURONTIN) capsule 300 mg 300 mg, Oral, THREE TIMES DAILY, First dose on Wed10/20/24 at 0900, Until Discontinued, Routine, Previous Med: gabapentin (NEURONTIN) 300 mg capsule - Orig Sig - Take 300 mg by mouth 2 times daily. One in am and one at 1400 Patient states she takes 400mg, specifically not 300mg Given 10/20/2024 5:49 PM BLISS PRESS OPERATOR 300 mg Given 10/20/2024 12:30 PM BLISS PRESS OPERATOR 300 mg Given 10/20/2024 8:49 AM BLISS PRESS OPERATOR 300 mg guaiFENesin (MUCINEX) SR tablet 600 mg 600 mg, Oral, EVERY 12 HOURS (BlD), First dose on Wed10/19/24 at 2100, Until Discontinued, Routine Given 10/20/2024 8:12 PM BLISS PRESS OPERATOR 600 mg Given 10/20/2024 8:49 AM BLISS PRESS OPERATOR 600 mg Given 10/19/2024 9:00 PM BLISS PRESS OPERATOR 600 mg ipratropium-albuteroL (DUONEB) 0.5 mg-3 mg(2.5 mg base)/3 mL inhalation solution 3 mL 3 mL, Inhalation, EVERY 6 HOURS RESPIRATORY, First dose on Wed10/20/24 at 2100, Until Discontinued, Routine, On hold since Wed10/20/2024 at 2102 until manually unheld ipratropium-albuteroL (DUONEB) 0.5 mg-3 mg(2.5 mg base)/3 mL inhalation solution 3 mL 3 mL, Inhalation, EVERY 4 HOURS PRN RESPIRATORY, Starting on Wed10/20/24 at 2056, Until Discontinued, Shortness of Breath, Wheezing, Routine levothyroxine (SYNTHROID) tablet 100 mcg 100 mcg, Oral, DAILY EARLY, First dose on Wed10/20/24 at 0600, Until Discontinued, Routine, Previous Med: levothyroxine 100 mcg tablet - Orig Sig - Take 100 mcg by mouth daily in the morning. Given 10/21/2024 5:33 AM BLISS PRESS OPERATOR 100 mcg Given 10/20/2024 5:33 AM BLISS PRESS OPERATOR 100 mcg ondansetron (ZOFRAN ODT) tablet 4 mg 4 mg, Sublingual, EVERY 6 HOURS PRN, Starting on Wed10/20/24 at 2127, Until Discontinued, Nausea/Emesis, Routine Given 10/20/2024 9:30 PM BLISS PRESS OPERATOR 4 mg ondansetron (ZOFRAN) 4 mg/2 mL injection 4 mg 4 mg, IV, EVERY 8 HOURS PRN, Starting on Wed10/20/24 at 2128, Until Discontinued, Nausea, 2nd line, Routine oseltamivir (TAMIFLU) capsule 30 mg 30 mg, Oral, EVERY 24 HOURS, 5 doses, First dose on Wed10/19/24 at 2014, Last dose on Wed10/23/24 at 2015, Routine, Age greater than 18 and est CrCl 10mL/min to 30mL/min, Indication: Treatment Given 10/20/2024 8:12 PM BLISS PRESS OPERATOR 30 mg Given 10/19/2024 8:58 PM BLISS PRESS OPERATOR 30 mg pantoprazole (PROTONIX) tablet 40 mg 40 mg, Oral, DAILY BEFORE BREAKFAST, First dose (after last modification) on 10/21/24 at 0730, Until Discontinued, Routine, Indication: Gastroesophageal reflux disease (GERD) Given 10/21/2024 6:59 AM BLISS PRESS OPERATOR 40 mg traMADoL (ULTRAM) tablet 50 mg 50 mg, Oral, EVERY 6 HOURS PRN, Starting on 10/21/24 at 0425, Until Discontinued, Pain, Severe, Routine, Previous Med: traMADoL (ULTRAM) 50 mg tablet - Orig Sig - Take 50 mg by mouth every 12 hours. Given 10/21/2024 4:42 AM BLISS PRESS OPERATOR 50 mg Inactive Administered Medications - up to 3 most recent administrations Medication Order MAR Action Action Date Dose Rate Site acetaminophen (TYLENOL) tablet 500 mg 500 mg, Oral, ONE TIME ONLY, 1 dose, On [place] 10/19/24 at 1845, Routine Given 10/19/2024 6:40 PM BLISS PRESS OPERATOR 500 mg acetaminophen (TYLENOL) tablet 650 mg 650 mg, Oral, ONE TIME ONLY, 1 dose, On Wed10/20/24 at 0600, Routine Given 10/20/2024 6:11 AM BLISS PRESS OPERATOR 650 mg amiodarone in dextrose (ISO-OSM) (NEXTERONE) 150 mg/100 mL (1.5 mg/mL) IVPB 150 mg 150 mg, IV, ONE TIME ONLY, 1 dose, On 10/21/24 at 0400, Routine New Bag 10/21/2024 4:10 AM BLISS PRESS OPERATOR 150 mg 600 mL/hr digoxin (LANOXIN) injection 250 mcg 250 mcg, IV, ONE TIME ONLY, 1 dose, On [facility] 10/21/24 at 0200, Routine, Reason for Use: Atrial fibrillation (rate control) Given 10/21/2024 2:09 AM BLISS PRESS OPERATOR 250 mcg enoxaparin (LOVENOX) injection 30 mg 30 mg, subCUT, EVERY 24 HOURS, First dose on [place] 10/19/24 at 2100, Until Discontinued, Routine, Indication: Prophylaxis of VTE Given 10/20/2024 8:11 PM BLISS PRESS OPERATOR 30 mg Abdomen, Left Lower Quadrant enoxaparin (LOVENOX) injection 30 mg 30 mg, subCUT, ONE TIME ONLY, 1 dose, On [facility] 10/21/24 at 0045, Routine, Indication: A Fib Given 10/21/2024 2:04 AM BLISS PRESS OPERATOR 30 mg Abdomen, Left Lower Quadrant ipratropium bromide (ATROVENT) 0.02 % nebulizer solution 0.5 mg 0.5 mg, Inhalation, EVERY 8 HOURS RESPIRATORY, First dose on [place] 10/19/24 at 2300, Until Discontinued, Routine Given 10/20/2024 3:18 PM BLISS PRESS OPERATOR 0.5 mg Given 10/20/2024 7:13 AM BLISS PRESS OPERATOR 0.5 mg Given 10/19/2024 11:41 PM BLISS PRESS OPERATOR 0.5 mg levalbuterol (XOPENEX) 1.25 mg/3 mL inhalation solution 1.25 mg 1.25 mg, Inhalation, EVERY 8 HOURS RESPIRATORY, First dose on [place] 10/19/24 at 2300, Until Discontinued, Routine Given 10/20/2024 3:18 PM BLISS PRESS OPERATOR 1.25 mg Given 10/20/2024 7:13 AM BLISS PRESS OPERATOR 1.25 mg Given 10/19/2024 11:43 PM BLISS PRESS OPERATOR 1.25 mg metoprolol (LOPRESSOR) 5 mg/5 mL injection 5 mg 5 mg, IV, ONE TIME ONLY, 1 dose, On Wed10/20/24 at 2115, Routine Given 10/20/2024 9:11 PM BLISS PRESS OPERATOR 5 mg sodium chloride 0.9 % bolus solution 250 mL 250 mL, IV, ONE TIME ONLY, 1 dose, On [place] 10/19/24 at 1745, at 500 mL/hr, Administer over 30 Minutes, Routine New Bag 10/19/2024 6:30 PM BLISS PRESS OPERATOR 250 mL 500 mL/hr sodium chloride 0.9 % bolus solution 500 mL 500 mL, IV, ONE TIME ONLY, 1 dose, On 10/21/24 at 0015, at 999 mL/hr, Administer over 30 Minutes, Routine New Bag 10/21/2024 12:14 AM BLISS PRESS OPERATOR 500 mL 999 mL/hr traMADoL (ULTRAM) tablet 50 mg 50 mg, Oral, EVERY 12 HOURS PRN, Starting on [place] 10/19/24 at 1957, Until 10/21/24 at 0426, Pain, Severe, Routine, Previous Med: traMADoL (ULTRAM) 50 mg tablet - Orig Sig - Take 50 mg by mouth every 12 hours. Given 10/20/2024 8:10 PM BLISS PRESS OPERATOR 50 mg Given 10/20/2024 5:33 AM BLISS PRESS OPERATOR 50 mg documented in this encounter Active and Recently Administered Medications Times are shown in BLISS PRESS OPERATOR. Scheduled Medication Order 10/19/2024 10/20/2024 10/21/2024 acetaminophen (TYLENOL) tablet 500 mg (COMPLETED) 500 mg, Oral, ONE TIME ONLY, 1 dose, On [place] 10/19/24 at 1845, Routine 1840 (Given - Provider: Nadja Holliday RN) acetaminophen (TYLENOL) tablet 500 mg 500 mg, Oral, EVERY 12 HOURS, First dose on Wed10/20/24 at 0900, Until Discontinued, Routine, Previous Med: acetaminophen (TYLENOL) 500 mg tablet - Orig Sig - Take 500 mg by mouth every 12 hours. 0900 (Canceled Entry - Provider: Mary Chavez RN)2010 (Given - Provider: Kyung Barrera RN) 0900 (Due)2099 (Due) acetaminophen (TYLENOL) tablet 650 mg (COMPLETED) 650 mg, Oral, ONE TIME ONLY, 1 dose, On Wed10/20/24 at 0600, Routine 0611 (Given - Provider: Roseline Benjamin, DONIS) amiodarone in dextrose (ISO-OSM) (NEXTERONE) 150 mg/100 mL (1.5 mg/mL) IVPB 150 mg (COMPLETED)(Linked Group 1) 150 mg, IV, ONE TIME ONLY, 1 dose, On 10/21/24 at 0400, Routine 0410 (New Bag - Provider: Kyung Barrera RN)0420 (Stopped - Provider: Kyung Barrera RN) azithromycin (ZITHROMAX) 500 mg in sodium chloride 0.9 % 250 mL IVPB 500 mg, IV, EVERY 24 HOURS, 3 doses, First dose on [place] 10/19/24 at 2100, Last dose on 10/21/24 at 2100, Routine, Antibiotic Indication: Pneumonia - Community-acquired(CAP) 2136 (New Bag - Provider: Roseline Benjamin RN)2236 (Stopped - Provider: Roseline Benjamin RN) 2052 (New Bag - Provider: Kyung Barrera RN)2152 (Stopped - Provider: Kyung Barrera RN) 2099 (Due) benzonatate (TESSALON) capsule 100 mg 100 mg, Oral, THREE TIMES DAILY, 6 doses, First dose on [place] 10/19/24 at 204, Last dose on 10/21/24 at 1300, Routine 2058 (Given - Provider: Roseline Benjamin RN) 0849 (Given - Provider: Mary Chavez, DONIS)1230 (Given - Provider: Mary Chavez, RN)1749 (Given - Provider: Mary Chavez, DONIS) 0900 (Due)1300 (Due) cefTRIAXone (ROCEPHIN) 2,000 mg in sodium chloride 0.9% 50 mL IVPB (MBP) 2,000 mg, IV, EVERY 24 HOURS, First dose on [place] 10/19/24 at 2100, Until Discontinued, Routine, Antibiotic Indication: Pneumonia - Community-acquired(CAP) 2056 (New Bag - Provider: Roseline Benjamin RN)2126 (Stopped - Provider: Roseline Benjamin RN) 2020 (New Bag - Provider: Kyung Barrera RN)2050 (Stopped - Provider: Kyung Barrera RN) 2099 (Due) digoxin (LANOXIN) injection 125 mcg 125 mcg, IV, ONE TIME ONLY, 1 dose, On 10/21/24 at 0800, Routine, Reason for Use: Atrial fibrillation (rate control) 0800 (Due) digoxin (LANOXIN) injection 250 mcg (COMPLETED) 250 mcg, IV, ONE TIME ONLY, 1 dose, On 10/21/24 at 0200, Routine, Reason for Use: Atrial fibrillation (rate control) 0209 (Given - Provider: Kyung Barrera RN) digoxin (LANOXIN) tablet 125 mcg 125 mcg, Oral, DAILY, First dose on [place] 10/22/24 at 0900, Until Discontinued, Routine, Reason for Use: Atrial fibrillation (rate control) docusate sodium (COLACE) capsule 100 mg 100 mg, Oral, TWO TIMES DAILY, First dose on [place] 10/19/24 at 2100, Until Discontinued, Previous Med: docusate sodium (COLACE ORAL) - Orig Sig - Take 10 mg by mouth. 2100 (Given - Provider: Roseline Benjamin RN) 0849 (Given - Provider: Mary Chavez RN)2100 (Not Given - Provider: Kyung Barrera RN - Reason: Patient condition) 0900 (Due)2100 (Due) enoxaparin (LOVENOX) injection 30 mg (CANCELED) 30 mg, subCUT, EVERY 24 HOURS, First dose on [place] 10/19/24 at 2100, Until Discontinued, Routine, Indication: Prophylaxis of VTE 2099 (Not Given - Provider: Roseline Benjamin RN - Reason: Other - See Comment - Comment: Patient refused.) 2010 (Given - Provider: Kyung Barrera, DONIS) enoxaparin (LOVENOX) injection 30 mg (COMPLETED) 30 mg, subCUT, ONE TIME ONLY, 1 dose, On 10/21/24 at 0045, Routine, Indication: A Fib 0204 (Given - Provider: Kyung Barrera, RN) enoxaparin (LOVENOX) injection 60 mg 60 mg (rounded from 58.5 mg = 1 mg/kg ? 58.5 kg), subCUT, EVERY 12 HOURS, First dose on 10/21/24 at 1700, Until Discontinued, Routine, Indication: A Fib 1700 (Due) gabapentin (NEURONTIN) capsule 300 mg 300 mg, Oral, THREE TIMES DAILY, First dose on Wed10/20/24 at 0900, Until Discontinued, Routine, Previous Med: gabapentin (NEURONTIN) 300 mg capsule - Orig Sig - Take 300 mg by mouth 2 times daily. One in am and one at 1400 Patient states she takes 400mg, specifically not 300mg 0849 (Given - Provider: Mary Chavez RN)1230 (Given - Provider: Mary Chavez RN)1749 (Given - Provider: Mary Chavez RN) 0900 (Due)1300 (Due)1800 (Due) guaiFENesin (MUCINEX) SR tablet 600 mg 600 mg, Oral, EVERY 12 HOURS (BlD), First dose on [place] 10/19/24 at 2100, Until Discontinued, Routine 2100 (Given - Provider: Roseline Benjamin RN) 0849 (Given - Provider: Mary Chavez RN)2011 (Given - Provider: Kyung Barrera RN) 0900 (Due)2100 (Due) ipratropium bromide (ATROVENT) 0.02 % nebulizer solution 0.5 mg (CANCELED)(Linked Group 2) 0.5 mg, Inhalation, EVERY 8 HOURS RESPIRATORY, First dose on [place] 10/19/24 at 2300, Until Discontinued, Routine 234 (Given - Provider: Audrey Ann RCP) 0713 (Given - Provider: Yael Camp RCP)1518 (Given - Provider: Yael Camp RCP) ipratropium-albuteroL (DUONEB) 0.5 mg-3 mg(2.5 mg base)/3 mL inhalation solution 3 mL 3 mL, Inhalation, EVERY 6 HOURS RESPIRATORY, First dose on Wed10/20/24 at 2100, Until Discontinued, Routine, On hold since Wed10/20/2024 at 210 until manually unheld 2099 (Not Given - Provider: Kyung Barrera RN - Reason: Patient condition)2101 (Held by Provider - Provider: Carlos Green MD - Reason: Other - See Comment) 0100 (Automatically Held - Provider: Carlos Green MD)0700 (Automatically Held - Provider: Carlos Green MD)1300 (Automatically Held - Provider: Carlos Green MD)1900 (Automatically Held - Provider: Carlos Green MD) levalbuterol (XOPENEX) 1.25 mg/3 mL inhalation solution 1.25 mg (CANCELED)(Linked Group 2) 1.25 mg, Inhalation, EVERY 8 HOURS RESPIRATORY, First dose on [place] 10/19/24 at 2300, Until Discontinued, Routine 2342 (Given - Provider: Audrey Ann RCP) 07 (Given - Provider: Yael Camp RCP)1518 (Given - Provider: Yael Camp RCP) levothyroxine (SYNTHROID) tablet 100 mcg 100 mcg, Oral, DAILY EARLY, First dose on Wed10/20/24 at 0600, Until Discontinued, Routine, Previous Med: levothyroxine 100 mcg tablet - Orig Sig - Take 100 mcg by mouth daily in the morning. 05 (Given - Provider: Roseline Benjamin RN) 532 (Given - Provider: Kyung Barrera RN) metoprolol (LOPRESSOR) 5 mg/5 mL injection 5 mg (COMPLETED) 5 mg, IV, ONE TIME ONLY, 1 dose, On Wed10/20/24 at 2115, Routine 2110 (Given - Provider: Kyung Barrera RN) naloxone (NARCAN) 0.4 mg/mL injection 0.1-0.4 mg 0.1-0.4 mg, IV, SEE ADMIN INSTRUCTIONS, Starting on [place] 10/19/24 at 2009, Until Discontinued, Routine oseltamivir (TAMIFLU) capsule 30 mg 30 mg, Oral, EVERY 24 HOURS, 5 doses, First dose on [place] 10/19/24 at 2014, Last dose on 10/23/24 at 2014, Routine, Age greater than 18 and est CrCl 10mL/min to 30mL/min, Indication: Treatment 2057 (Given - Provider: Roseline Benjamin RN) 2011 (Given - Provider: Kyung Barrera RN) 2014 (Due) pantoprazole (PROTONIX) tablet 40 mg 40 mg, Oral, DAILY BEFORE BREAKFAST, First dose (after last modification) on 10/21/24 at 0730, Until Discontinued, Routine, Indication: Gastroesophageal reflux disease (GERD) 0659 (Given - Provider: Mary Chavez RN) sodium chloride 0.9 % bolus solution 250 mL (COMPLETED) 250 mL, IV, ONE TIME ONLY, 1 dose, On [place] 10/19/24 at 1745, at 500 mL/hr, Administer over 30 Minutes, Routine 1830 (New Bag - Provider: Nadja Holliday RN)1900 (Stopped - Provider: Nadja Holliday RN) sodium chloride 0.9 % bolus solution 500 mL (COMPLETED) 500 mL, IV, ONE TIME ONLY, 1 dose, On 10/21/24 at 0015, at 999 mL/hr, Administer over 30 Minutes, Routine 0014 (New Bag - Provider: Kyung Barrera RN)0044 (Stopped - Provider: Kyung Barrera RN) Continuous Medication Order 10/19/2024 10/20/2024 10/21/2024 amiodarone in dextrose (ISO-OSM) (NEXTERONE) 360 mg/200 mL (1.8 mg/mL) IV infusion(Linked Group 1) 1 mg/min (33.3333 mL/hr, rounded to 33.33 mL/hr), IV, CONTINUOUS, Starting on 10/21/24 at 0400, Until 10/21/24 at 0959 0424 (New Bag - Prov ider: Kyung Barrera RN)0959 (Due: Order Ending - Provider: Kyung Barrera RN - Comment: [Order ends at this time. Document a Stopped action when infusion is complete.]) amiodarone in dextrose (ISO-OSM) (NEXTERONE) 360 mg/200 mL (1.8 mg/mL) IV infusion(Linked Group 1) 0.5 mg/min (16.6667 mL/hr, rounded to 16.67 mL/hr), IV, CONTINUOUS, Starting on 10/21/24 at 1000, Until Discontinued 1000 (Due) PRN Medication Order 10/19/2024 10/20/2024 10/21/2024 acetaminophen (TYLENOL) tablet 650 mg 650 mg, Oral, EVERY 4 HOURS PRN, Starting on 10/21/24 at 0426, Until Discontinued, Pain, Temperature, over 100.4, Routine 0659 (Given - Provid er: Mary Chavez RN) calcium as carbonate (TUMS) 500 mg (200 mg elemental) chewable tablet 500 mg 500 mg, Oral, TWO TIMES DAILY PRN, Starting on [place] 10/19/24 at 2030, Until Discontinued, Dyspepsia, Indigestion, Previous Med: CALCIUM CARBONATE ORAL - Orig Sig - Take 200 mg by mouth. ipratropium-albuteroL (DUONEB) 0.5 mg-3 mg(2.5 mg base)/3 mL inhalation solution 3 mL 3 mL, Inhalation, EVERY 4 HOURS PRN RESPIRATORY, Starting on Wed10/20/24 at 205, Until Discontinued, Shortness of Breath, Wheezing, Routine ondansetron (ZOFRAN ODT) tablet 4 mg 4 mg, Sublingual, EVERY 6 HOURS PRN, Starting on Wed10/20/24 at 2126, Until Discontinued, Nausea/Emesis, Routine 2129 (Given - Provider: Kyung Barrera RN) ondansetron (ZOFRAN) 4 mg/2 mL injection 4 mg 4 mg, IV, EVERY 8 HOURS PRN, Starting on Wed10/20/24 at 2127, Until Discontinued, Nausea, 2nd line, Routine traMADoL (ULTRAM) tablet 50 mg (CANCELED) 50 mg, Oral, EVERY 12 HOURS PRN, Starting on [place] 10/19/24 at 1957, Until 10/21/24 at 0426, Pain, Severe, Routine, Previous Med: traMADoL (ULTRAM) 50 mg tablet - Orig Sig - Take 50 mg by mouth every 12 hours. 0533 (Given - Provider: Roseline Benjamin RN)2009 (Given - Provider: Kyung Barrera RN) traMADoL (ULTRAM) tablet 50 mg 50 mg, Oral, EVERY 6 HOURS PRN, Starting on 10/21/24 at 0425, Until Discontinued, Pain, Severe, Routine, Previous Med: traMADoL (ULTRAM) 50 mg tablet - Orig Sig - Take 50 mg by mouth every 12 hours. 0442 (Given - Provid er: Kyung Barrera RN) Linked Groups Order Group 1: amiodarone in dextrose (ISO-OSM) (NEXTERONE) 150 mg/100 mL (1.5 mg/mL) IVPB 150 mg (COMPLETED)Jump to med 150 mg, IV, ONE TIME ONLY, 1 dose, On 10/21/24 at 0400, Routine And amiodarone in dextrose (ISO-OSM) (NEXTERONE) 360 mg/200 mL (1.8 mg/mL) IV infusionJump to med 1 mg/min (33.3333 mL/hr, rounded to 33.33 mL/hr), IV, CONTINUOUS, Starting on 10/21/24 at 0400, Until 10/21/24 at 0959 And amiodarone in dextrose (ISO-OSM) (NEXTERONE) 360 mg/200 mL (1.8 mg/mL) IV infusionJump to med 0.5 mg/min (16.6667 mL/hr, rounded to 16.67 mL/hr), IV, CONTINUOUS, Starting on 10/21/24 at 1000, Until Discontinued Group 2: levalbuterol (XOPENEX) 1.25 mg/3 mL inhalation solution 1.25 mg (CANCELED)Jump to med 1.25 mg, Inhalation, EVERY 8 HOURS RESPIRATORY, First dose on [place] 10/19/24 at 2300, Until Discontinued, Routine And ipratropium bromide (ATROVENT) 0.02 % nebulizer solution 0.5 mg (CANCELED)Jump to med 0.5 mg, Inhalation, EVERY 8 HOURS RESPIRATORY, First dose on [place] 10/19/24 at 2300, Until Discontinued, Routine documented in this encounter Additional Health Concerns Infection Onset Date Last Indicated Resolved Time R/O COVID-19 10/19/2024 10/19/2024 10/19/2024 3:21 PM BLISS PRESS OPERATOR Influenza 10/19/2024 10/19/2024 R/O GI Pathogen 10/19/2024 10/19/2024 10/20/2024 7 :58 PM BLISS PRESS OPERATOR R/O C. diff 10/20/2024 10/20/2024 10/20/2024 1:18 AM BLISS PRESS OPERATOR documented as of this encounter Care Teams Tobacco Wrapping Machine Tender Relationship Specialty Start Date End Date Coretta Mabry MD [address] [id number] PCP - General Family Practice 01/05/23 documented as of this encounter
--- OUTSIDE RECORDS SUMMARY | 2024-10-21 08:47 | XMS_ITS | Encounter Summary ---
Author Organization [facility] Address 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tr[address], [address] [place] [address] Marielena Chong FNP [address] [place] [address] 03/01/2025 1:20 PM CDT Office Visit [facility] OBGYN [place] [address] [place] [address] Boni Romo III, MD [address] [place] [address] documented as of this encounter Visit Diagnoses Not on filedocumented in this encounter Care Teams Maintenance Groundskeeper Relationship Specialty Start Date End Date Coretta Mabry MD [address] [facility] [address] [place] [address] PCP - General Family Practice 01/05/23 documented as of this encounter
--- OUTSIDE RECORDS SUMMARY | 2024-10-21 08:47 | XMS_ITS | Encounter Summary ---
Author Organization [facility] Address 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 ON INFORMATION SPECIALIST * Telephone Encounter - Alexander Schaffer RN - 09/21/2024 3:26 PM CST ----- Message from Jaimie sent at 09/21/2024 2:05 PM POISON INFORMATION SPECIALIST ----- Regarding: progress notes, medication orders Corinne from [facility] is needing a faxed copy of progress notes and medication orders for treatment plan. CB# [phone] ON INFORMATION SPECIALIST documented in this encounter Plan of Treatment Upcoming Encounters Date Type Department Care Team (Late st Contact Info) Description 12/14/2024 1:30 PM CDT Office Visit [facility] Urology- [place] [address] [place] [address] Marielena Chong FNP [address] [place] [address] 03/01/2025 1:20 PM CDT Office Visit [facility] OBGYN [place] [address] [place] [address] Boni Romo III, MD [address] [place] [address] documented as of this encounter Visit Diagnoses Not on filedocumented in this encounter Care Teams Raiser Helper Relationship Specialty Start Date End Date Coretta Mabry MD [address] [phone] PCP - General Family Practice 01/05/23 documented as of this encounter
--- OUTSIDE RECORDS SUMMARY | 2024-10-21 08:47 | XMS_ITS | Encounter Summary ---
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, [address] [place] [address] Marielena Chong FNP [address] [place] [address] 03/01/2025 1:20 PM CDT Office Visit [facility] OBGYN [place] [address] [facility] [address] [place] [address] Boni Romo III, MD [address] [place] [address] documented as of this encounter Visit Diagnoses Not on filedocumented in this encounter Additional Health Concerns Infection Onset Date Last Indicated Resolved Time R/O COVID-19 10/19/2024 10/19/2024 10/19/2024 3:21 PM AUTOMATIC DRY STARCH OPERATOR Influenza 10/19/2024 10/19/2024 R/O GI Pathogen 10/19/2024 10/19/2024 10/20/2024 7 :58 PM AUTOMATIC DRY STARCH OPERATOR documented as of this encounter Care Teams Traffic Line Painter Relationship Specialty Start Date End Date Coretta Mabry MD [address] [phone] PCP - General Family Practice 01/05/23 documented as of this encounter
--- OUTSIDE RECORDS SUMMARY | 2024-10-21 08:47 | XMS_ITS | Encounter Summary ---
Author Organization [facility] [place] [address] [place] [address] Care Team Providers Care Geodetic Surveyor Name Role Phone Coretta Mabry MD Primary Care Provider [phone] Reason for Visit * Reason Onset Date Comments Medication Question 09/29/2024 Encounter Details Date Type Department Care Team ([facility] st Contact Info) Description 09/29/2024 Telephone [facility] Urology- [place] 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 Appreciative of call. TIC ROOM OPERATOR * Telephone Encounter - Kyung Truong LPN - 09/29/2024 10:42 AM CAUSTIC ROOM OPERATOR Left message for Sharla at [facility], return call requested. TIC ROOM OPERATOR * Telephone Encounter - Anitha Zimmer RN - 09/29/2024 8:26 AM CST healthcare facility calling because at appt with CL on 09/15 was prescribed trospium. She then had an appt on 09/20 with PCP and they prescribed myrbetriq. The facility is wanting to know if she should be taking both of these medications or not and if not which would should she be taking. This RN will send to Marielena Chong to advise. TIC ROOM OPERATOR documented in this encounter Plan of Treatment Upcoming Encounters Date Type Department Care Team (Late st Contact Info) Description 12/14/2024 1:30 PM CDT Office Visit [facility] Urology- [place] [address] 3[address] [place] [address] Marielena Chong FNP [address] [place] [address] 03/01/2025 1:20 PM CDT Office Visit [facility] [place] [address] [facility] [address] [place] [address] Boni Romo III, MD [address] [place] [address] documented as of this encounter Visit Diagnoses Not on filedocumented in this encounter Care Teams Geodetic Surveyor Relationship Specialty Start Date End Date Coretta Mabry MD [address] [phone] PCP - General Family Practice 01/05/23 documented as of this encounter
--- OUTSIDE RECORDS SUMMARY | 2024-10-21 08:47 | XMS_ITS | Encounter Summary ---
Author Organization [facility] Address 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- [place] [address] [place] [address] Marielena Chong FNP [address] [place] [address] 03/01/2025 1:20 PM CDT Office Visit [facility] OBGYN [place] [address] [place] [address] Boni Romo III, MD [address] [place] [address] documented as of this encounter Visit Diagnoses Not on filedocumented in this encounter Care Teams Thermoscrew Operator Relationship Specialty Start Date End Date Coretta Mabry MD [address] [facility] [address] [place] [address] PCP - General Family Practice 01/05/23 documented as of this encounter
--- OUTSIDE RECORDS SUMMARY | 2024-10-21 08:47 | XMS_ITS | Encounter Summary ---
Author Organization [facility] Address 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 Gender Identity Not on file Sexual Orientation Not on file documented as of this encounter Plan of Treatment Upcoming Encounters Date Type Department Care Team (Late Contact Info) Description 12/14/2024 1:30 PM CDT Office Visit [address]tr[address] [place] [address] Christen Chonglotamarilys Ellis, [employer] [address] [place] [address] 03/01/2025 1:20 PM CDT Office Visit [facility] O[facility]YN [place] [address] [place] [address] Boni Romo III, MD [address] [place] [address] documented as of this encounter Visit Diagnoses Not on filedocumented in this encounter Additional Health Concerns Infection Onset Date Last Indicated Resolved Time R/O COVID-19 10/19/2024 10/19/2024 10/19/2024 3:21 PM OVEN ROASTER Influenza 10/19/2024 10/19/2024 R/O GI Pathogen 10/19/2024 10/19/2024 10/20/2024 7 :58 PM OVEN ROASTER R/O C. diff 10/20/2024 10/20/2024 10/20/2024 1:18 AM OVEN ROASTER documented as of this encounter Care Teams Wellness Rn Relationship Specialty Start Date End Date Coretta Mabry MD [address] [facility] [address] [place] [id number] PCP - General Family Practice 01/05/23 documented as of this encounter
--- OUTSIDE RECORDS SUMMARY | 2024-10-21 08:47 | XMS_ITS | Clinical Summary ---
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 Nitrofurantoin Shortness of Breath/Wheezing High 09/20/2024 Phenazopyridine Nausea and Vomiting Low 09/20/2024 Sulfa (Sulfonamide Antibiotics) Nausea and Vomiting Low 08/21/2021 Trimethoprim Rash Low 09/20/2024 Medications omeprazole (PriLOSEC) 40 mg Capsule, Delayed Release(E.C.) Take 40 mg by mouth daily. Active atorvastatin (LIPITOR) 40 mg tablet Take 40 mg by mouth daily at bedtime. Active gabapentin (NEURONTIN) 300 mg capsule Take 300 mg by mouth 2 times daily. One in am and one at 1400 Patient states she takes 400mg, specifically not 300mg Active gabapentin (NEURONTIN) 600 mg tablet Take 100 mg by mouth daily. Active levothyroxine 100 mcg tablet Take 100 mcg by mouth daily in the morning. Active white petrolatum ([facility] Healing, Petrolatum,) 41 % Ointment Apply to affected area 1 time daily as needed for Rash or Redness. 4 Active trospium (SANCTURA) 20 mg TabletIndication s:OAB (overactive bladder) Take 1 Tablet (20 mg) by mouth 2 times daily. 60 Tablet 11 5 Active mirabegron (MYRBETRIQ) 25 mg Extended Release 24 hour tabletIndication s:Urge incontinence Take 1 Tablet (25 mg) by mouth daily. 30 Tablet 11 5 Active estradioL (Estrace) 0.01% (0.1 mg/g) vaginal creamIndications :Vaginal atrophy Apply 1g vaginally at night twice weekly 42.5 Gram 11 5 Active acetaminophen (TYLENOL) 500 mg tablet Take 500 mg by mouth every 12 hours. Active ondansetron (ZOFRAN) 4 mg Tablet Take 4 mg by mouth every 8 hours as needed for Nausea/Emesis. Active docusate sodium (COLACE ORAL) Take 10 mg by mouth. Active CALCIUM CARBONATE ORAL Take 200 mg by mouth. Active traMADoL (ULTRAM) 50 mg tablet Take 50 mg by mouth every 12 hours. Active CYCLOSPORINE OP by Ophthalmic route. Active ascorbic acid, vitamin C, (Vitamin C) 1,000 mg Tablet Take 2,000 mg by mouth daily. Active cholecalciferol, Vitamin D3, (VITAMIN D3) 25 mcg (1,000 unit) Capsule Take 2,000 Units by mouth daily. Active potassium CHLORIDE (KLOR-CON M20) 20 mEq Extended Release tablet Take 20 mEq by mouth daily. Active zinc gluconate 50 mg Tablet Take by mouth. Ac tive Loperamide-Simet hicone 2-125 mg Tablet Take by mouth. Activ e nitroglycerin (NITROMIST) 400 mcg/spray Aerosol, [place] [address] [place] under tongue every 5 minutes as needed for Chest Pain. Active Active Problems Problem Noted Date Diagnosed Date Pneumonia of left lower lobe due to infectious o rganism 10/19/2024 Influenza A 10/19/2024 Arthralgia of pelvic region, unspecified lateral ity 10/19/2024 Fall from standing 10/19/2024 Other specified hypothyroidism 10/19/2024 Adnexal mass 10/19/2024 Urge incontinence 09/20/2024 Vaginal atrophy 09/20/2024 Urinary retention 09/20/2024 Influenza B 05/31/2023 Pneumonia of both lungs due to infectious organi sm 05/31/2023 HTN (hypertension) 05/31/2023 afib 05/31/2023 Muscle spasm of left lower extremity 01/05/2023 Encounters Date Type Department Care Team Description 10/21/2024 Emergency [facility] Emergency Department [address] [place] [phone] 10/19/2024 2:45 PM DIRECTOR PRIVATE - 10/21/2024 8:01 AM DIRECTOR PRIVATE Hospital Encounter [facility] [address] [facility] [address] [place] [phone] Aria Jesus MD Pneumonia of left lower lobe due to infectious organism Discharge Disposition: Acute Care Hospital 10/19/2024 Travel 10/04/2024 External Device Data [facility] ABSTRACTION Provider, Abstract 09/29/2024 Telephone [facility] [place] [address] Entrance B, 3rd [place] [address] Marielena Chong FNP Medication Question 09/28/2024 External Device Data ST[facility] ABSTRACTION Provider, Abstract 09/22/2024 Telephone [facility] [place] [place] [address] [place] [address] Shabana Galdamez RN Medication Question 09/22/2024 Results Follow-Up [facility] [place] [address] Entrance B, 3rd [place] [address] Marielena Chong FNP US RENAL AND BLADDER, XR ABDOMEN 1 VW 09/21/2024 Telephone [facility] [place] [place] [address] [place] [address] Boni Romo III, MD Medical Records 09/20/2024 3:47 PM DIRECTOR PRIVATE - 09/20/2024 11:59 PM DIRECTOR PRIVATE Hospital Encounter [facility] [address] [facility] [address] [place] [phone] Marielena Chong FNP Discharge Disposition: Home or Self Care 09/20/2024 11:20 AM DIRECTOR PRIVATE Office Visit [facility] [place] [place] [address] [place] [phone] Boni Romo III, MD Urinary incontinence, unspecified type (Primary Dx); Urge incontinence; Vaginal atrophy; Urinary retention 09/18/2024 12:20 PM DIRECTOR PRIVATE - 09/18/2024 11:59 PM DIRECTOR PRIVATE Hospital Encounter [facility] [address] [facility] [address] [place] [phone] Marielena Chong FNP Discharge Disposition: Home or Self Care 09/18/2024 12:19 PM DIRECTOR PRIVATE - 09/18/2024 11:59 PM DIRECTOR PRIVATE Hospital Encounter [facility] [place] [address] [facility] [address] [place] [phone] Marielena Chong FNP Overactive bladder Discharge Disposition: Home or Self Care 09/18/2024 Orders Only [address] Entrance B, [address] [place] [phone] Gregoria Velazquez FNP 09/18/[address] Entrance B, [address] [place] [phone] Marielena Chong FNP prescriptions 09/15/2024 2:00 PM DIRECTOR PRIVATE Office Visit [address] Entrance B, [address] [place] [phone] Marielena hCong FNP OAB (overactive bladder) (Primary Dx); Nocturia; Constipation, unspecified constipation type; History of nocturnal enuresis; Other female genital prolapse; Frequent UTI 08/10/[address] [facility] Entrance B, [address] [place] [phone] Zeynep Slater RN OAB (overactive bladder) 08/01/2024 External Device Data STL ABSTRACTION Provider, Abstract from Last 3 Months Social History Tobacco Use Types Packs/Day Years Used Date Smoking Tobacco: Never Smokeless Tobacco: Never Tobacco Cessation:Counseling Given: No Alcohol Use Standard Drinks/Week Comments Never 0 [...] on file Legal Sex Female 11:59 AM DIRECTOR PRIVATE Gender Identity Not on file Sexual Orientation Not on file Last Filed Vital Signs Vital Sign Reading Time Taken Comments Blood Pressure 155/56 10/21/2024 6:54 AM DIRECTOR PRIVATE Pulse 74 10/21/2024 7:00 AM DIRECTOR PRIVATE Temperature 36.8 ??C (98.3 ??F) 10/21/2024 6:54 AM CS T Respiratory Rate 18 10/21/2024 7:00 AM DIRECTOR PRIVATE Oxygen Saturation 97% 10/21/2024 7:00 AM DIRECTOR PRIVATE Inhaled Oxygen Concentration - - Weight 58.5 kg (129 lb) 10/19/2024 2:46 PM DIRECTOR PRIVATE Height 165.1 cm (5' 5 ) 10/19/2024 2:46 PM DIRECTOR PRIVATE Body Mass Index 21.47 10/19/2024 2:46 PM DIRECTOR PRIVATE Plan of Treatment Upcoming Encounters Date Type Department Care Team (Late st Contact Info) Description 12/14/2024 1:30 PM CDT Office Visit [facility] [place] [address] [facility] [address]tr[address], 3rd [place] [address] Marielena Chong FNP [address] [place] [address] 03/01/2025 1:20 PM CDT Office Visit [facility] [place] [place] [address] [facility] [address] [place] [address] Boni Romo III, MD [address] [place] [address] Health Maintenance Due Date Last Done Comments DTAP/TDAP/TD VACCINES (1 - Tdap) 1954 Traditional Medicare (ACO) A nnual Wellness Visit 1954 ZOSTER VACCINE (1 of 2) 1985 RSV VACCINE (60+ or ) (1 - 1-dose 75+ series) 2010 INFLUENZA VACCINE (#1) 2024 2, 06/20/2019, 06/06/2019, Additional history exists OSTEOPOROSIS SCREENING Completed 06/01/2022 COVID-19 Vaccine Completed 08/14/2024, 06/19/2022 PNEUMOCOCCAL VACCINE 65+ YEARS Completed 1 10/15/2023, 09/06/2021, 06/14/2015, Additional history exists Procedures Procedure Name Priority Date/Time Associated Diagnosis Comments TROPONIN 6 HR, 5TH GEN Timed Study 5 3:20 AM DIRECTOR PRIVATE XR CHEST PA OR AP 1 VW Stat 5 1:13 AM DIRECTOR PRIVATE TROPONIN 2 HR, 5TH GEN Timed Study 5 11:45 PM DIRECTOR PRIVATE TROPONIN BASELINE, 5TH GEN Stat 10/20/2024 9:38 PM DIRECTOR PRIVATE C. DIFFICILE DETECTION Routine 5 12:25 AM DIRECTOR PRIVATE URINALYSIS MICROSCOPY ONLY Stat 10/19/2024 11:08 PM DIRECTOR PRIVATE URINALYSIS W/REFLEX MICROSCOPIC Stat 10/19/2024 11:08 PM DIRECTOR PRIVATE GI PATHOGEN PCR PANEL Routine 10/19/2024 11:08 PM DIRECTOR PRIVATE TSH Routine 10/19/2024 6:08 PM DIRECTOR PRIVATE MAGNESIUM LEVEL Stat 10/19/2024 6:08 PM DIRECTOR PRIVATE C-REACTIVE PROTEIN Stat 10/19/2024 6: 08 PM DIRECTOR PRIVATE LACTIC ACID Stat 10/19/2024 6:08 PM DIRECTOR PRIVATE BRAIN NATRIURETIC PEPTIDE, BNP OR PROBNP Stat 10/19/2024 6:08 PM DIRECTOR PRIVATE COMPREHENSIVE METABOLIC PANEL Stat 10/19/2024 6:08 PM DIRECTOR PRIVATE SEDIMENTATION RATE Stat 10/19/2024 6: 08 PM DIRECTOR PRIVATE CBC WITH DIFFERENTIAL Stat 10/19/2024 6:[address] PELVIS WO CONTRAST Stat 10/19/2024 4:49 PM DIRECTOR PRIVATE XR CHEST PA OR AP 1 VW Stat 4:48 PM DIRECTOR PRIVATE COVID-19 ANTIGEN Stat 10/19/2024 2:55 PM DIRECTOR PRIVATE INFLUENZA VIRUS A AND B, ANTIGEN DETECTION Stat 10/19/2024 2:55 PM DIRECTOR PRIVATE US RENAL AND BLADDER Routine 09/20/2024 4:34 PM DIRECTOR PRIVATE OAB (overactive bladder) History of nocturnal enuresis Frequent UTI URINALYSIS W/REFLEX MICROSCOPIC Routine 09/20/2024 11:53 AM DIRECTOR PRIVATE Urinary incontinence, unspecified type URINE CULTURE Routine 09/20/2024 11:53 AM DIRECTOR PRIVATE Urinary incontinence, unspecified type XR ABDOMEN 1 VW Routine 09/18/2024 1:35 PM DIRECTOR PRIVATE OAB (overactive bladder) Constipation, unspecified constipation type REFERENCE LAB PROCESSING FEE Routine 09/18/2024 12:40 PM DIRECTOR PRIVATE Detrusor instability of bladder MISCELLANEOUS LAB TEST Routine 2:00 PM DIRECTOR PRIVATE OAB (overactive bladder) AR CYSTOURETHROSCOPY WITH BIOPSY Routine 09/15/2024 2:00 PM DIRECTOR PRIVATE OAB (overactive bladder) Nocturia History of nocturnal enuresis Other female genital prolapse AR RORY POST-VOIDING RESIDUAL URINE&/BLADDER CAP Routine 09/15/2024 2:00 PM DIRECTOR PRIVATE OAB (overactive bladder) URINALYSIS MICROSCOPY ONLY Routine 09/15/2024 2:00 PM DIRECTOR PRIVATE OAB (overactive bladder) POC URINALYSIS DIPSTICK AUTOMATED Routine 09/15/2024 1:25 PM DIRECTOR PRIVATE Urinary incontinence, unspecified type COMPREHENSIVE METABOLIC PANEL Routine 09/15/2024 12:00 AM DIRECTOR PRIVATE OAB (overactive bladder) Nocturia XR DEXA BONE DENSITY AXIAL 1 OR MORE SITES Routine 06/01/2022 2:59 PM CDT Age-related osteoporosis without current pathological fracture Other intervertebral disc degeneration, lumbar region Spondylosis without myelopathy or radiculopathy, lumbar region Rheumatoid arthritis, involving unspecified site, unspecified whether rheumatoid factor present ([facility]) from Last 3 Months or Most Recently Relevant to Health Maintenance Results * (ABNORMAL) TROPONIN 6 HR, 5TH GEN (10/21/2024 3:20 AM DIRECTOR PRIVATE) TROPONIN T, 6 HR 5TH GEN 40(H) <11 ng/L 10/21/2024 3:51 AM DIRECTOR PRIVATE [facility] DELTA 6HR TROPONIN T 1 See Interp. 10/21/2024 3:51 AM DIRECTOR PRIVATE [facility] Blood BLOOD SPECIMEN / Unknown Venipuncture / Unknown 10/21/2024 3:20 AM DIRECTOR PRIVATE 10/21/2024 3:24 AM DIRECTOR PRIVATE Narrative [facility] - 10/21/2024 3:51 AM DIRECTOR PRIVATE Troponin elevated. Delta indeterminate. Carlos Green MD CHEMISTRY ORDERABLES Final Resul t [facility] CLIA # [id number] [address] [address] * XR CHEST PA OR AP 1 VW (10/21/2024 1:13 AM DIRECTOR PRIVATE) Only the most recent of2 resultswithin the time period is included. Anatomical Region Laterality Modality Chest Computed Radiogr aphy 10/21/2024 1:05 AM DIRECTOR PRIVATE Impressions 10/21/2024 5:53 AM DIRECTOR PRIVATE IMPRESSION: Please see below. Exam: XR CHEST [...] 2 HR, 5TH GEN (10/20/2024 11:45 PM DIRECTOR PRIVATE) TROPONIN T, 2 HR 5TH GEN 40(H) <=10 ng/L 10/21/2024 12:19 AM DIRECTOR PRIVATE [facility] DELTA 2HR TROPONIN T 1 See Interp. 10/21/2024 12:19 AM DIRECTOR PRIVATE [facility] Blood BLOOD SPECIMEN / Unknown Venipuncture / Unknown 10/20/2024 11:45 PM DIRECTOR PRIVATE 10/20/2024 11:50 PM DIRECTOR PRIVATE [facility] - 10/21/2024 12:19 AM DIRECTOR PRIVATE Troponin elevated. Delta not changing. us Carlos Green MD CHEMISTRY ORDERABLES Final Resul t [facility] CLIA # [id number] [address] [place] [address] * (ABNORMAL) TROPONIN BASELINE, 5TH GEN (10/20/2024 9:38 PM DIRECTOR PRIVATE) [facility] TROPONIN T, BASELINE 5TH GEN 39(H) <=10 ng/L 10/20/2024 9:55 PM DIRECTOR PRIVATE [facility] Blood BLOOD SPECIMEN / Unknown Venipuncture / Unknown 10/20/2024 9:38 PM DIRECTOR PRIVATE 10/20/2024 9:38 PM DIRECTOR PRIVATE [facility] - 10/20/2024 9:55 PM DIRECTOR PRIVATE Troponin elevated. us Carlos Green MD CHEMISTRY ORDERABLES Final Resul t Performing Organization Address City/[facility]/ZIP Co de Phone Number [facility] CLIA # [id number] [address] [place] [address] * C. DIFFICILE DETECTION (10/20/2024 12:25 AM DIRECTOR PRIVATE) [facility] C DIFFICILE TOXIN NOT DETECTED Not Detected 10/20/2024 1:18 AM DIRECTOR PRIVATE [facility] Stool STOOL SPECIMEN / Unknown Collection / Unknown 10/20/2024 12:25 AM DIRECTOR PRIVATE 10/20/2024 12:50 AM DIRECTOR PRIVATE [facility] - 10/20/2024 1:18 AM DIRECTOR PRIVATE This assay tests for C. difficile Toxin A and/or Toxin B, by non-PCR methodology. Mariann Onofre APN MICROBIOLOGY - GENERAL ORD ERABLES Final Result [facility] CLIA # [id number] [address] [place] [address] * GI PATHOGEN PCR PANEL (10/19/2024 11:08 PM DIRECTOR PRIVATE) [facility] GI Pathogen PCR panel NOT DETECTED No nucleic acids detected. 10/20/2024 7:58 PM DIRECTOR PRIVATE [facility] Stool STOOL SPECIMEN / Unknown Collection / Unknown 10/19/2024 11:08 PM DIRECTOR PRIVATE 10/19/2024 11:13 PM DIRECTOR PRIVATE [facility] - 10/20/2024 7:58 PM DIRECTOR PRIVATE The Film Array GI Panel is a [...] MICROBIOLOGY - GENERAL ORD ERABLES Final Result [facility] CLIA # [id number] [facility] [address] * (ABNORMAL) URINALYSIS MICROSCOPY ONLY (10/19/2024 11:08 PM DIRECTOR PRIVATE) Only the most recent of2 resultswithin the time period is included. WBC UA 51-100(A) 0 - 2 /hpf 10/19/2024 11:32 PM [facility] RBC UA 6-10(A) 0 - 2 /hpf 10/19/2024 11:32 PM [facility] BACTERIA UA 1+(A) Negative /hpf 10/19/2024 11:32 PM [facility] EPITHELIAL CELLS, URINE 0-5 0 - 5 /hpf 10/19/2024 11:32 PM [facility] Urine URINE SPECIMEN OBTAINED BY CLEAN CATCH PROCEDURE / Unknown Collection / Unknown 10/19/2024 11:08 PM DIRECTOR PRIVATE 10/19/2024 11:24 PM DIRECTOR PRIVATE Aria Jesus MD URINE ORDERABLES Final Result [facility] CLIA # [id number] [address] [place] [address] * (ABNORMAL) URINALYSIS WITH REFLEX MICROSCOPIC (10/19/2024 11:08 PM DIRECTOR PRIVATE) Only the most recent of2 resultswithin the time period is included. COLOR UA Yellow Pale to Dark Yellow 10/19/2024 11:32 PM [facility] CLARITY UA Slightly Cloudy(A) Clear 10/19/2024 11:32 PM [facility] SPECIFIC GRAVITY UA >=1.030 1.003 - 1.035 10/19/2024 11:32 PM [facility] PH UA 6.0 5.0 - 8.0 10/19/2024 11:32 PM [facility] LEUKOCYTE ESTERASE UA 1+(A) Negative 10/19/2024 11:32 PM DIRECTOR PRIVATE [facility] NITRITE UA Negative Negative 10/19/2024 11:32 PM [facility] PROTEIN UA 2+(A) Negative 10/19/2024 11:32 PM [facility] GLUCOSE UA Negative Negative 10/19/2024 11:32 PM [facility] KETONES UA Trace(A) Negative 10/19/2024 11:32 PM [facility] UROBILINOGEN UA 0.2 <2.0 mg/dL 11:32 PM [facility] BILIRUBIN UA Negative Negative 10/19/2024 11:32 PM [facility] BLOOD UA Trace(A) Negative 10/19/2024 11:32 PM [facility] Urine URINE SPECIMEN OBTAINED BY CLEAN CATCH PROCEDURE / Unknown Collection / Unknown 10/19/2024 11:08 PM DIRECTOR PRIVATE 10/19/2024 11:24 PM DIRECTOR PRIVATE us Aria Jesus MD URINE ORDERABLES Final Result Performing Organization Address City/[facility]/ZIP Co de Phone Number [facility] CLIA # [id number] [address] [place] [address] * LACTIC ACID (10/19/2024 6:08 PM DIRECTOR PRIVATE) LACTIC ACID 1.4 <=2.0 mmol/L 10/19/2024 6:30 PM [facility] Blood BLOOD SPECIMEN / Unknown Collection / Unknown 10/19/2024 6:08 PM DIRECTOR PRIVATE 10/19/2024 6:15 PM DIRECTOR PRIVATE us Aria Jesus MD CHEMISTRY ORDERABLES Final Resu lt [facility] CLIA # [id number] [address] [place] [address] * (ABNORMAL) CBC WITH DIFFERENTIAL (10/19/2024 6:08 PM DIRECTOR PRIVATE) WBC 7.7 4.0 - 10.0 K/uL 10/19/2024 6:18 PM [facility] RBC 3.55(L) 3.93 - 5.22 M/uL 10/19/2024 6:18 PM [facility] HEMOGLOBIN 10.7(L) 11.2 - 15.7 g/dL 10/19/2024 6:18 PM [facility] HEMATOCRIT 33.7(L) 34.1 - 44.9 % 10/19/2024 6:18 PM [facility] MCV 94.9(H) 79.4 - 94.8 fL 10/19/2024 6:18 PM [facility] MCH 30.1 25.6 - 32.2 pg 10/19/2024 6:18 PM [facility] MCHC 31.8(L) 32.2 - 35.5 g/dL 10/19/2024 6:18 PM [facility] RDW 14.7(H) 11.0 - 14.5 % 10/19/2024 6:18 PM [facility] RDW-STDEV 51.2 36.9 - 56.9 fL 10/19/2024 6:18 PM [facility] PLATELETS 166 163 - 337 K/uL 10/19/2024 6:18 PM [facility] MPV 10.2 10.0 - 14.8 fL 10/19/2024 6:18 PM [facility] NEUTROPHILS 85(H) 34 - 71 % 10/19/2024 6:18 PM [facility] LYMPHOCYTES 6(L) 19 - 52 % 10/19/2024 6:18 PM [facility] MONOCYTES 8 5 - 13 % 10/19/2024 6:18 PM [facility] EOSINOPHILS 0(L) 1 - 6 % 10/19/2024 6:18 PM [facility] BASOPHILS 0 0 - 1 % 10/19/2024 6:18 PM [facility] IMMATURE GRANULOCYTES 0 % 10/19/2024 6:18 PM [facility] NEUTROPHIL ABSOLUTE 6.52(H) 1.56 - 6.13 K/uL 10/19/2024 6:18 PM [facility] LYMPHOCYTE ABSOLUTE 0.49(L) 1.20 - 3.40 K/uL 10/19/2024 6:18 PM [facility] MONOCYTE ABSOLUTE 0.65(H) 0.24 - 0.36 K/uL 10/19/2024 6:18 PM [facility] EOSINOPHIL ABSOLUTE 0.01(L) 0.04 - 0.36 K/uL 10/19/2024 6:18 PM [facility] BASOPHILS ABSOLUTE 0.02 0.01 - 0.08 K/uL 10/19/2024 6:18 PM [facility] IMMATURE GRANULOCYTES ABSOLUTE 0.02 K/uL 10/19/2024 6:18 PM [facility] Blood Collection / Unknown 10/19/2024 6:08 PM DIRECTOR PRIVATE 10/19/2024 6:15 PM DIRECTOR PRIVATE us Aria Jesus MD HEMATOLOGY ORDERABLES Final Res ult [facility] CLIA # [id number] [address] [place] [address] * (ABNORMAL) SEDIMENTATION RATE (10/19/2024 6:08 PM DIRECTOR PRIVATE) ESR (SEDIMENTATION RATE) 36(H) 0 - 30 mm/Hr 10/19/2024 6:20 PM [facility] Blood Collection / Unknown 10/19/2024 6:08 PM DIRECTOR PRIVATE 10/19/2024 6:15 PM DIRECTOR PRIVATE Narrative [facility] - 10/19/2024 6:20 PM DIRECTOR PRIVATE Tube Lot: #[id number] Exp Date: 04/05/2026 SR 0125-1 EXP. 03/10/25 SR 0125-2 EXP. 03/10/25 us Aria Jesus MD HEMATOLOGY ORDERABLES Final Res ult [facility] CLIA # [id number] [address] [place] [address] * (ABNORMAL) C-REACTIVE PROTEIN (10/19/2024 6:08 PM DIRECTOR PRIVATE) CRP 79.9(H) <5.0 mg/L 10/19/2024 6:32 PM DIRECTOR PRIVATE [facility] Blood Collection / Unknown 10/19/2024 6:08 PM DIRECTOR PRIVATE 10/19/2024 6:15 PM DIRECTOR PRIVATE us Aria Jesus MD CHEMISTRY ORDERABLES Final Resu lt Performing Organization Address [facility]/ZIP Co de Phone Number [id number] [address] [place] [address] * (ABNORMAL) TSH (10/19/2024 6:08 PM DIRECTOR PRIVATE) Pathologist [facility] TSH 0.24(L) 0.27 - 4.20 uIU/mL 10/20/2024 9:05 PM DIRECTOR PRIVATE [facility] Blood Collection / Unknown 10/19/2024 6:08 PM DIRECTOR PRIVATE 10/19/2024 6:15 PM DIRECTOR PRIVATE us Carlos Green MD CHEMISTRY ORDERABLES Final Resul t Performing Organization Address [facility]/ZIP Co de Phone Number [facility] [id number] [address] [place] [address] * (ABNORMAL) BRAIN NATRIURETIC PEPTIDE, BNP OR PROBNP (10/19/2024 6:08 PM DIRECTOR PRIVATE) PROBNP, N TERMINAL 3,879(H) 0 - 450 pg/mL 10/19/2024 6:32 PM [facility] Comment: INTERPRETIVE COMMENT based on diagnosis: [...] Blood Collection / Unknown 10/19/2024 6:08 PM DIRECTOR PRIVATE 10/19/2024 6:15 PM DIRECTOR PRIVATE us Aria Jesus MD CHEMISTRY ORDERABLES Final Resu lt Performing Organization Address [facility]/ZIP Co de Phone Number [facility] # [id number] [address] [place] [address] * MAGNESIUM LEVEL (10/19/2024 6:08 PM DIRECTOR PRIVATE) MAGNESIUM 2.3 1.6 - 2.4 mg/dL 10/19/2024 6:32 PM [facility] Blood Collection / Unknown 10/19/2024 6:08 PM DIRECTOR PRIVATE 10/19/2024 6:15 PM DIRECTOR PRIVATE us Aria Jesus MD CHEMISTRY ORDERABLES Final Resu lt Performing Organization Address [facility] Co de Phone Number [facility] # [id number] [address] [place] [address] * (ABNORMAL) COMPREHENSIVE METABOLIC PANEL (10/19/2024 6:08 PM DIRECTOR PRIVATE) Only the most recent of2 resultswithin the time period is included. SODIUM 138 136 - 145 mmol/L 10/19/2024 6:32 PM [facility] POTASSIUM 4.2 3.5 - 5.1 mmol/L 10/19/2024 6:32 PM [facility] CHLORIDE 101 98 - 107 mmol/L 10/19/2024 6:32 PM [facility] CO2 22 22 - 29 mmol/L 10/19/2024 6:32 PM [facility] CALCIUM 8.7(L) 8.8 - 10.2 mg/dL 10/19/2024 6:32 PM [facility] BUN 27(H) 8 - 23 mg/dL 10/19/2024 6:32 PM [facility] CREATININE 1.23(H) 0.51 - 0.95 mg/dL 10/19/2024 6:32 PM [facility] Comment:The GFR result is no t clinically significant on patients <18 or >70 years of age. GLUCOSE 97 74 - 99 mg/dL 10/19/2024 6:32 PM [facility] TOTAL PROTEIN 7.2 6.6 - 8.7 g/dL 10/19/2024 6:32 PM [facility] ALBUMIN 3.8(L) 4.0 - 4.9 g/dL 10/19/2024 6:32 PM [facility] BILIRUBIN TOTAL 0.6 <=1.2 mg/dL 10/19/2024 6:32 PM [facility] ALKALINE PHOSPHATASE 394(H) 35 - 104 U/L 10/19/2024 6:32 PM [facility] AST 43(H) 0 - 35 U/L 10/19/2024 6:32 PM [facility] ALT 32 0 - 35 U/L 10/19/2024 6:32 PM [facility] GFR 42 mL/min/1.7 3 sq meter 10/19/2024 6:32 PM [facility] Comment:eGFR calculated with 2020 CKD-EPI equation. Vegetarian diet, extremely high or low muscle mass, and may affect results. Cystatin C with Glomerular Filtration Rate is a suitable alternative for these patients. ANION GAP 15 5 - 20 mmol/L 10/19/2024 6:32 PM [facility] Blood Collection / Unknown 10/19/2024 6:08 PM DIRECTOR PRIVATE 10/19/2024 6:15 PM DIRECTOR PRIVATE us Aria Jesus MD CHEMISTRY ORDERABLES Final Resu lt [facility] # [id number] [address] [place] [address] * CT PELVIS WO CONTRAST (10/19/2024 4:49 PM DIRECTOR PRIVATE) Anatomical Region Laterality Modality Pelvis Computed Tomogra phy 10/19/2024 4:49 PM DIRECTOR PRIVATE Impressions 10/19/2024 5:05 PM DIRECTOR PRIVATE IMPRESSION: Please see below. Exam: CT PELVIS [...] correlation with nonemergent pelvic ultrasound is recommended. Aria Jesus MD CT ORDERABLES Final Result * COVID-19 ANTIGEN (10/19/2024 2:55 PM DIRECTOR PRIVATE) COVID-19 ANTIGEN Presumptive Negative Presumptive Negative 10/19/2024 3:21 PM DIRECTOR PRIVATE [facility] Upper Respiratory ANTERIOR NARES SWAB / Unknown Collection / Unknown 10/19/2024 2:55 PM DIRECTOR PRIVATE 10/19/2024 3:05 PM DIRECTOR PRIVATE [facility] - 10/19/2024 3:21 PM DIRECTOR PRIVATE Joaquina SARS antigen test has been authorized by FDA under an emergency use authorization (EUA) and has been authorized only for the detection of proteins from SARS-CoV-2 and influenza, not for any other viruses or pathogens. Joaquina SARS Antigen FARIBA is intended for the simultaneous qualitative detection and differentiation of nucleocapsid protein antigen from SARS-CoV-2 directly from nasopharyngeal (CUSTODIAN MANAGER) and nasal (NS) swab specimens collected from [...] at least 48 hours between tests. us rAia Jesus MD MICROBIOLOGY - GENERAL ORDERABL ES Final Result Performing Organization Address [facility] Co de Phone Number [facility] # [id number] [address] [place] [address] * (ABNORMAL) INFLUENZA VIRUS A AND B, ANTIGEN DETECTION (10/19/2024 2:55 PM DIRECTOR PRIVATE) Pathologist [facility] INFLUENZA A AG DETECTED(A) Not Detected 10/19/2024 3:21 PM DIRECTOR PRIVATE [facility] INFLUENZA B AG NOT DETECTED Not Detected 10/19/2024 3:21 PM DIRECTOR PRIVATE [facility] Upper Respiratory ENTIRE NASOPHARYNX / Unknown Collection / Unknown 10/19/2024 2:55 PM DIRECTOR PRIVATE 10/19/2024 3:05 PM DIRECTOR PRIVATE Narrative [facility] - 10/19/2024 3:21 PM DIRECTOR PRIVATE Negative results do not rule out infection. ??If clinically indicated, consider PCR testing which is more sensitive than antigen testing. ??If PCR testing is desired, consult with your local laboratory as sample recollection may be required. us Aria Jesus MD MICROBIOLOGY - GENERAL ORDERABL ES Final Result Performing Organization Address [facility] Co de Phone Number [facility] # [id number] [address] [place] [address] * US RENAL AND BLADDER (09/20/2024 4:34 PM DIRECTOR PRIVATE) Anatomical Region Laterality Modality Abdomen Ultrasound 09/20/2024 4:34 PM DIRECTOR PRIVATE Impressions 09/21/2024 1:51 PM DIRECTOR PRIVATE IMPRESSION: ?? No hydronephrosis. Narrative 09/21/2024 1:51 PM DIRECTOR PRIVATE Exam: Renal and bladder ultrasound. Indication: Frequent UTI, nocturnal enuresis. Comparison: None FINDINGS: ?? RIGHT: ??No hydronephrosis. Cortical echogenicity and thickness is preserved. The kidney measures 10.37 cm in length. No abnormal renal masses identified. No sonographically evident renal calculi. LEFT: ??No hydronephrosis. Cortical echogenicity and thickness is preserved. The kidney measures 8.97 cm in length. No abnormal renal masses identified. No sonographically evident renal calculi. Left renal cyst measuring up to 1.6 cm. Bladder: No obvious sonographic abnormality. Procedure Note Edis Burns MD - 09/21/2024 Exam: Renal and bladder ultrasound. Indication: Frequent UTI, nocturnal enuresis. Comparison: None FINDINGS: RIGHT: No hydronephrosis. Cortical echogenicity and thickness is preserved. The kidney measures 10.37 cm in length. No abnormal renal masses identified. No sonographically evident renal calculi. LEFT: No hydronephrosis. Cortical echogenicity and thickness is preserved. The kidney measures 8.97 cm in length. No abnormal renal masses identified. No sonographically evident renal calculi. Left renal cyst measuring up to 1.6 cm. Bladder: No obvious sonographic abnormality. IMPRESSION: No hydronephrosis. Marielena Chong [facility] US ORDERABLES Final Resu lt * URINE CULTURE (09/20/2024 11:53 AM DIRECTOR PRIVATE) URINE CULTURE SEE NOTE [facility] Comment: ??CULTURE, URINE, ROUTINE ?Micro Number: ?[id number] ??Test Status: ? Final ??Specimen Source: ?? Urine, clean catch ??Specimen Quality: ??Adequate ??Result: ?No Growth Test Performed at: [facility] [address] [place], [place] ??[address] Esther Li MD Urine URINE SPECIMEN OBTAINED BY CLEAN CATCH PROCEDURE / Unknown 09/20/2024 11:53 AM DIRECTOR PRIVATE 09/20/2024 2:13 PM DIRECTOR PRIVATE Boni Romo III, MD MICROBIOLOGY - GENERAL ORDERABLES Final Result [facility] [phone] [facility] [address] [place] [address] * XR ABDOMEN 1 VW (09/18/2024 1:35 PM DIRECTOR PRIVATE) Anatomical Region Laterality Modality Abdomen Computed Radiogr aphy 09/18/2024 1:35 PM DIRECTOR PRIVATE Impressions 09/19/2024 9:53 AM DIRECTOR PRIVATE IMPRESSION: Please see below. Exam: XR ABDOMEN 1 VW Date/Time of Exam: 09/18/2024 1:35 PM Reason For Exam: See Diagnosis. Diagnosis: OAB (overactive bladder); Constipation, unspecified constipation type. Findings: There are no comparisons. Pacemaker leads are partially visualized. The right hemidiaphragm is elevated. There are no abnormally dilated loops of bowel. The amount of stool in the colon is not abnormal. The organ outlines are not enlarged. No concerning abnormal calcifications are noted. There is severe levoscoliosis. 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 No acute bony abnormality is noted. 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 IMPRESSION: 1. Nonspecific abdomen. 2. Severe levoscoliosis. Severe multilevel degenerative change. Narrative Procedure Note Hope Marquez MD - 09/19/2024 IMPRESSION: Please see below. Exam: XR ABDOMEN 1 VW Date/Time of Exam: 09/18/2024 1:35 PM Reason For Exam: See Diagnosis. Diagnosis: OAB (overactive bladder); Constipation, unspecified constipation type. Findings: There are no comparisons. Pacemaker leads are partially visualized. The right hemidiaphragm is elevated. There are no abnormally dilated loops of bowel. The amount of stool in the colon is not abnormal. The organ outlines are not enlarged. No concerning abnormal calcifications are noted. There is severe levoscoliosis. 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 No acute bony abnormality is noted. 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 IMPRESSION: 1. Nonspecific abdomen. 2. Severe levoscoliosis. Severe multilevel degenerative change. us Marielena Ellis Law INSOLE STIFFENER DIAGNOSTIC IMAGING ORDERAB LES Final Result * REFERENCE LAB PROCESSING FEE (09/18/2024 12:40 PM DIRECTOR PRIVATE) REFERENCE LAB SENDOUT Sent to Ref Lab 09/18/2024 2:00 PM DIRECTOR PRIVATE [facility] Other, specify BLOOD SPECIMEN / Unknown Collection / Unknown 09/18/2024 12:40 PM DIRECTOR PRIVATE 09/18/2024 12:41 PM DIRECTOR PRIVATE Marielena LUGO CHEMISTRY ORDERABLES Final Result Performing Organization Address [facility] de Phone Number [facility] CLIA # [id number] [address] [place] [address] * MISCELLANEOUS LAB TEST (09/15/2024 2:00 PM DIRECTOR PRIVATE) Other, specify 09/15/2024 2: 00 PM DIRECTOR PRIVATE Marielena LUGO CHEMISTRY ORDERABLES Final Result Performing Organization Address [facility] de Phone Number [facility] [phone] * AR RORY POST-VOIDING RESIDUAL URINE&/BLADDER CAP (09/15/2024 2:00 PM DIRECTOR PRIVATE) Narrative [facility] - 09/15/2024 2:00 PM DIRECTOR PRIVATE Marielena Chong FNP ? 09/15/2024 ??3:36 PM Post Void Residual Date/Time: 09/15/2024 2:00 PM Performed by: Niranjan Ramirez Authorized by: Marielena Chong FNP ??Patient tolerance: patient tolerated the procedure well with no immediate complications Comments: Patient's abdomen and suprapubic area palpated to identify the pubic bone. ??Ultrasound jelly was then applied to the suprapubic area. ??The suprapubic area was scanned in the usual fashion. ??The jelly was then cleaned off the patient's suprapubic area. ??The post void residual was measured to be 7 Ml. Marielena LUGO PROCEDURE ORDERABLES Fi nal Result Performing Organization Address [facility] de Phone Number [facility] CLIA# [id number] [address] [place] [address], [place] * AR CYSTOURETHROSCOPY WITH BIOPSY (09/15/2024 2:00 PM DIRECTOR PRIVATE) Narrative [facility] - 09/15/2024 2:00 PM DIRECTOR PRIVATE Marielena Chong FNP ? 09/15/2024 ??3:36 PM Cystoscopy Date/Time: 09/15/2024 2:00 PM Performed by: Marielena Chong FNP Authorized by: Marielena Chong FNP ?? Prep: patient was prepped and draped in usual sterile fashion ?? Procedure Details ??Cystoscope type: flexible ??Cystoscopy route: transurethral ?Cystoscopy location: [place] bladder ?Irrigation used: sterile water ?? Post-Procedure Details ??Outcome: patient tolerated procedure well with no complications ?? Additional Details Cystoscope CY-R # [id number] . Marielena LUGO PROCEDURE ORDERABLES Fi nal Result Performing Organization Address [facility] de Phone Number [facility] CLIA# [id number] [address] [place] [address], [place] * (ABNORMAL) POC URINALYSIS DIPSTICK AUTOMATED (09/15/2024 1:25 PM DIRECTOR PRIVATE) COLOR UA POC Yellow Pale to Dark Yellow [facility] CLARITY UA POC Clear Clear, Other ME [facility] GLUCOSE UA POC Negative Negative, Normal [facility] BILIRUBIN UA POC Negative Negative [facility] UA POC Negative Negative [facility] SPECIFIC GRAVITY UA POC 1.010 1.000 - 1.030 [facility] BLOOD UA POC Trace(A) Negative [facility] PH UA POC 5.5 5.0 - 8.0 [facility] PROTEIN UA POC 1+(A) Negative [facility] UROBILINOGEN UA POC 0.2 <2.0 mg/dL [facility] NITRITE UA POC Negative Negative [facility] LEUKOCYTE ESTERASE UA POC 3+(A) Negative [facility] KIT LOT NUMBER POC [phone] [facility] KIT EXP DATE POC 10/31 [facility] Urine 09/15/2024 1:25 PM DIRECTOR PRIVATE Marielena Ann Law INSOLE STIFFENER POINT OF CARE TESTING Marina l Result [facility] CLIA# [id number] [address] [place] [address], * XR DEXA BONE DENSITY AXIAL 1 OR MORE SITES (06/01/2022 2:59 PM CDT) T-SCORE SPINE 0.90 -1.0 - 1.0 INTER FACE SYSTEM T-SCORE HIP (LEFT) -2.30 -1.0 - 1.0 INTERFACE SYSTEM Anatomical Region Laterality Modality Digital Radiogra phy 06/01/2022 3:02 PM CDT Impressions 06/01/2022 6:09 PM CDT IMPRESSION: Abnormal examination Bone density lies in the osteopenic range in the left proximal femur indicating and increased risk for fracture. Consider assessing fracture risk as below for assistance in medical management. NOF guidelines recommend consideration of FDA-approved medical therapies in patients with FRAX determined 10-year probabilities of hip/major osteoporosis-related fractures equal or greater than 3%/20% respectively. Consider assessing fracture risk using the FRAX analysis tool for guidance of clinical management available online at www.shef.ac.uk/FRAX/. Enter [employer] for Select DXA and the total hip BMD value as it will provide a more accurate assessment of fracture risk. Narrative 06/01/2022 6:09 PM CDT DEXA Evaluation of the Lumbar Spine and Left Proximal Femur Reason for Consultation: ??Osteoporosis screening. ??Evaluation of bone mineral density. The following absorptiometry data were obtained. ??The quality of this examination is acceptable with regards to count density, processed images, data display and lack of important artifacts (including but not limited to motion and attenuation artifacts). ??Serial examination number 1. Lumbar spine images dextroscoliotic and degenerative changes resulting in spurious elevation of bone density. L1-L4 BMD (g/cm2): 1.142 Adult T-score: 0.9 Adult Z-score: not available Left Femoral Neck BMD (g/cm2): 0.651 Adult T-score: -1.8 Adult Z-score: not available Left Total Hip BMD (g/cm2): 0.665 Adult T-score: -2.3 Adult Z-score: not available Procedure Note Boo Lorenzo MD - 06/01/2022 DEXA Evaluation of the Lumbar Spine and Left Proximal Femur Reason for Consultation: Osteoporosis screening. Evaluation of bone mineral density. The following absorptiometry data were obtained. The quality of this examination is acceptable with regards to count density, processed images, data display and lack of important artifacts (including but not limited to motion and attenuation artifacts). Serial examination number 1. Lumbar spine images dextroscoliotic and degenerative changes resulting in spurious elevation of bone density. L1-L4 BMD (g/cm2): 1.142 Adult T-score: 0.9 Adult Z-score: not available Left Femoral Neck BMD (g/cm2): 0.651 Adult T-score: -1.8 Adult Z-score: not available Left Total Hip BMD (g/cm2): 0.665 Adult T-score: -2.3 Adult Z-score: not available IMPRESSION: Abnormal examination Bone density lies in the osteopenic range in the left proximal femur indicating and increased risk for fracture. Consider assessing fracture risk as below for assistance in medical management. NOF guidelines recommend consideration of FDA-approved medical therapies in patients with FRAX determined 10-year probabilities of hip/major osteoporosis-related fractures equal or greater than 3%/20% respectively. Consider assessing fracture risk using the FRAX analysis tool for guidance of clinical management available online at www.shef.ac.uk/FRAX/. Enter [employer] for Select DXA and the total hip BMD value as it will provide a more accurate assessment of fracture risk. [facility] Yolette Morris MD DIAGNOSTIC IMAGING ORDERA BLES Final Result from Last 3 Months or Most Recently Relevant to Health Maintenance Additional Health Concerns Infection Onset Date Last Indicated Influenza 10/19/2024 10/19/2024 Insurance MEDICARE PART A AND B FOR LIFE Advance Directives For more information, please contact: [phone] Documents on File Type Date Recorded Patient Private Detective Expl anation Advance Directive POA 11/19/2023 1:59 PM A dvance Directive POA Advance Directive POA 2023 1:34 PM Outside The Hospital DNR Order * Full Code (Latest Code Status on File) Date Activated Date Inactivated Comments 10/19/2024 8:13 PM * Full Code Date Activated Date Inactivated Comments 05/31/2023 8:13 PM 06/01/2023 6:51 PM Care Teams Waxing Machine Operator Relationship Specialty Start Date End Date Coretta Mabry MD [address] [facility] [address] [place] [address] PCP - General Family Practice 01/05/23
--- OUTSIDE RECORDS SUMMARY | 2024-10-21 08:47 | XMS_ITS | Encounter Summary ---
Author Organization [facility] Address 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 They would like to know if would like to DC the sanctura that Marielena Chong started and have Shanna only take Myrbetriq? Or does she need to be taking both. Questions sent to for answer. L FABRICATOR HELPER documented in this encounter Plan of Treatment Upcoming Encounters Date Type Department Care Team (Late st Contact Info) Description 12/14/2024 1:30 PM CDT Office Visit [facility] Urology- [place] [address] Entrance B, 3rd [place] [address] Marielena Chong FNP [address] [place] [address] 03/01/2025 1:20 PM CDT Office Visit [facility] OBG[facility] [place] [address] [place] [address] Boni Romo III, MD [address] [place] [address] documented as of this encounter Visit Diagnoses Not on filedocumented in this encounter Care Teams Sheet Metal Roofer Relationship Specialty Start Date End Date Coretta Mabry MD [address] [address] PCP - General Family Practice 01/05/23 documented as of this encounter
--- OUTSIDE RECORDS SUMMARY | 2024-10-21 08:47 | XMS_ITS | Encounter Summary ---
Author Organization [facility] Address [address] [place] [address] Care Team Providers Care Hospital Wellness Coordinator Name Role Phone Coretta Mabry MD Primary Care Provider [phone] Reason for Referral * Radiology Services (Routine) - Closed Specialty Diagnoses / Procedures Referred By Patel reid Referred To Contact Radiology Diagnoses OAB (overactive bladder) History of nocturnal enuresis Frequent UTI Procedures US RENAL AND BLADDER Marielena Chong FNP [address] [place] [address] Phone: tel: fax: [facility] [place] [address] [address] Phone: tel: fax: Referral ID Status Reason Start Date Expiration Date Visits Re quested Visits Authorized [id number] Closed 09/15/2024 10/16/2025 1 1 H CRYSTAL MOLDER Reason for Visit * Radiology Services (Routine) - Closed Specialty Diagnoses / Procedures Referred By Patel reid Referred To Contact Radiology Diagnoses OAB (overactive bladder) History of nocturnal enuresis Frequent UTI Procedures US RENAL AND BLADDER Marielena Chong FNP [address] [place] [address] Phone: tel: fax: [facility] [place] [address] [address] Phone: tel: fax: Referral ID Status Reason Start Date Expiration Date Visits Re quested Visits Authorized [id number] Closed 09/15/2024 10/16/2025 1 1 Encounter Details Date Type Department Care Team (Late st Contact Info) Description 09/20/2024 3:47 PM WATCH CRYSTAL MOLDER - 09/20/2024 11:59 PM WATCH CRYSTAL MOLDER Hospital Encounter [facility] [place] [address] [place] [phone] Marielena Chong, [facility] [address] [place] [address] Discharge Disposition: Home or Self Care Social History Tobacco Use Types Packs/Day Years [...] on file Legal Sex Female 11:59 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 documented as of this encounter Plan of Treatment Upcoming Encounters Date Type Department Care Team (Late st Contact Info) Description 12/14/2024 1:30 PM CDT Office Visit [facility] Urology- [place] [address] Entrance [address], 3rd [place] [address] Marielena Chong FNP [address] [place] [address] 03/01/2025 1:20 PM CDT Office Visit [facility] [place] [address] [place] [address] Boni Romo III, MD [address] [place] [address] documented as of this encounter Procedures Procedure Name Priority Date/Time Associated Diagnosis Comments US RENAL AND BLADDER Routine 09/20/2024 4:34 PM WATCH CRYSTAL MOLDER OAB (overactive bladder) History of nocturnal enuresis Frequent UTI documented in this encounter Results * US RENAL AND BLADDER (09/20/2024 4:34 PM WATCH CRYSTAL MOLDER) Anatomical Region Laterality Modality Abdomen Ultrasound 09/20/2024 4:34 PM WATCH CRYSTAL MOLDER Impressions 09/21/2024 1:51 PM WATCH CRYSTAL MOLDER IMPRESSION: ?? No hydronephrosis. Narrative 09/21/2024 1:51 PM WATCH CRYSTAL MOLDER Exam: Renal and bladder ultrasound. Indication: Frequent [...] sonographic abnormality. IMPRESSION: No hydronephrosis. Marielena Chong [facility] US ORDERABLES Final Resu lt documented in this encounter Visit Diagnoses Diagnosis OAB (overactive bladder) Hypertonicity of bladder History of nocturnal enuresis Frequent UTI Urinary tract infection, site not specified documented in this encounter Care Teams Hospital Wellness Coordinator Relationship Specialty Start Date End Date Coretta Mabry MD [address] [facility] [address] [place] [address] PCP - General Family Practice 01/05/23 documented as of this encounter
--- NOTE | 2024-10-21 09:10 | USCV_ITS ---
Shanna Lang Age: 89 Gender: F : 1935 Exam Date: 10/21/2024 11:08 Ordering Phys: Elis Pagan MD Technologist: Tanmay Garrison [place] [facility] [place]: afib BP: 164 / 64 HR: 62 Rhythm: Sinus Technical Quality: Adequate MEASUREMENTS (Male / Female) Normal Values 2D ECHO LV Diastolic Diameter PLAX 2.4 cm 4.2 - 5.9 / 3.9 - 5.3 cm IVS Diastolic Thickness 1.1 cm 0.6 - 1.0 / 0.6 - 0.9 cm IVS Systolic Thickness 1.5 cm LVPW Diastolic Thickness 1.7 cm 0.6 - 1.0 / 0.6 - 0.9 cm LVPW Systolic Thickness 1.4 cm LVOT Diameter 2.0 cm LV Ejection Fraction 2D Teich 78.9 % LV Ejection Fraction MOD 4C 67.9 % LV Ejection Fraction MOD 2C 59.1 % LV Ejection Fraction 2C AL 59.3 % LA Diameter 3.7 cm RA Systolic Volume 4C AL 24.5 ml RA Systolic Volume 4C MOD 24.4 ml LA Sys Volume AL 52.5 cm cubed LA Sys Volume Index AL 32.9 cm cubed/m squared Aorta at Sinotubular Diameter 2.2 cm IVC Diameter 1.5 cm M-MODE LA Ao Ratio MM 1.0 AV Cusp Separation MM 1.5 cm DOPPLER AV Peak Velocity 118.0 cm/s LVOT Peak Velocity 81.0 cm/s AV Area Cont Eq vti 2.1 cm squared AV Area Cont Eq pk 2.2 cm squared MV Area PHT 5.3 cm squared Mitral E to A Ratio 0.8 TV Peak Velocity 338.5 cm/s TR Peak Velocity 352.0 cm/s TR Peak Gradient 49.6 mmHg TR Mean Velocity 254.0 cm/s TR Mean Gradient 29.3 mmHg TR Velocity Time Integral 114.9 cm PV Peak Velocity 74.0 cm/s RV Ejection Time 0.3 s FINDINGS Left Ventricle Normal left ventricular size and systolic function, EF 65%. Moderate left ventricular hypertrophy. Grade I/IV diastolic dysfunction (abnormal relaxation filling pattern), normal to mildly elevated filling pressures. Right Ventricle The right ventricle is normal in size and function. Right Atrium The right atrium is normal in size. Left Atrium Moderately increased left atrial size. Mitral Valve Thickened mitral valve. Moderate mitral annular calcification. Mild mitral valve regurgitation. Aortic Valve Thickened aortic valve. Tricuspid Valve [id number]-bd-rjqkfjpy tricuspid valve regurgitation. Estimated pulmonary artery peak systolic pressure 52 mmHg Pulmonic Valve No gross abnormalities noted Pericardium No pericardial effusion. Aorta Normal ascending aorta dimension. IVC Normal inferior vena cava. CONCLUSIONS Normal left ventricular size and systolic function, EF 65%. Moderate left ventricular hypertrophy. Grade I/IV diastolic dysfunction (abnormal relaxation filling pattern), normal to mildly elevated filling pressures. Moderately increased left atrial size. Thickened mitral valve. Moderate mitral annular calcification. Mild mitral valve regurgitation. Thickened aortic valve. Mwdy-nu-oroccohd tricuspid valve regurgitation. Mild pulmonary pretension with an estimated pulmonary artery peak systolic pressure of 52 mmHg There is no pericardial effusion. There are no intracardiac masses. Compared to the previous study from 11/24/2023, there may not be a significant change Dr Toni Galvez MD [facility] (Electronically Signed) Final Date: 21 October 2024 12:23 S
--- NOTE | 2024-10-21 09:17 | PM.HP ---
Providers/Chief Complaint Admitting Physician: Andrei Jarrett MD Primary Care Provider: PARISH Medel Chief Complaint: Flu pnemonia afib rvr History of Present Illness Shanna Lang is a 89 year old female With past medical history of atrial fibrillation, hypertension, peripheral arterial disease, congestive heart failure, hypothyroidism, CABG, PCI, dyslipidemia, rheumatoid arthritis, subclavian artery stenosis, pacemaker placement presented to the hospital today from [facility] for complaint of A-fib with RVR. He was found to be positive for influenza at the outside facility. She is also diagnosed with a pneumonia there. She states that she lives at an assisted living facility at [facility] and has been feeling weak and coughing for last few days. Has not had a fever at home however in the ER did have a fever. She is requiring 2 L nasal cannula at this time. Denies chest pain shortness of breath abdominal pain diarrhea production of sputum. Her friend from latter day is at the bedside. She states her family is in [place] and her grandson is there was name is Benjamin who she would like to have added on to her DPOA. Current DPOA is with a friend who will be coming in later this afternoon. When seen in ICU room 6 patient currently on IV fluids and vitals are stable. Medications/Allergies Home Medications ?Medication ?Instructions ?Recorded ?Confirmed ?Last Taken ?Type Back brace #1 ea 11/20/21 10/21/24 02/26/22 Rx doughnut cushion #1 ea 04/07/22 10/21/24 Unknown Rx accommodative orthotic #1 ea 04/15/22 10/21/24 Unknown Rx calcium carbonate (Tums) 200 mg PO BID PRN dyspepsia 30 08/19/23 10/21/24 Unknown Rx days #60 tabs nitroglycerin 400 mcg/spray 1 spray translingual Q5M PRN chest 09/10/23 10/21/24 Unknown Rx translingual pain #4.9 grams Lactobacillus rhamnosus-Bifidobac. 1 cap PO QAM 10/24/23 10/21/24 10/24/23 History animalis 3 billion cell capsule (BizAnytime) ascorbic acid (vitamin C) 500 mg 2,000 mg PO DAILY 10/24/23 10/21/24 10/24/23 History tablet (Vitamin C) zinc gluconate 50 mg tablet 50 mg PO DAILY 10/24/23 10/21/24 10/24/23 History levothyroxine 100 mcg capsule 100 mcg PO DAILY 11/24/23 10/21/24 Unknown History (Tirosint) Shower Chair #1 ea 02/06/24 10/21/24 Unknown Rx Incontince Briefs XL #99 ea 03/28/24 10/21/24 Unknown Rx tramadol 50 mg tablet 50 mg PO BID PRN pain 30 days #45 04/14/24 10/21/24 Unknown Rx tabs potassium chloride 20 mEq 20 meq PO DAILY #90 tabs 05/09/24 10/21/24 Unknown Rx tablet,extended release folic acid 1 mg tablet 1 mg PO DAILY #30 tabs 08/23/24 10/21/24 Unknown Rx methotrexate sodium 2.5 mg tablet See Rx Instructions PO Q7D #30 tabs 08/23/24 10/21/24 Unknown Rx atorvastatin 40 mg tablet See Rx Instructions .Route 09/29/24 10/21/24 Unknown Rx .COMPLEX #90 tabs acetaminophen 500 mg tablet 500 mg PO BID PRN fever 10/21/24 10/21/24 Unknown History (Tylenol Extra Strength) cholecalciferol (vitamin D3) 25 50 mcg PO DAILY 10/21/24 10/21/24 Unknown History mcg (1,000 unit) capsule (Vitamin D3) cyclosporine 0.05 % eye drops in a 1 drp ophthalmic (eye) DAILY 10/21/24 10/21/24 Unknown History dropperette docusate sodium 100 mg capsule 100 mg PO BID constipation 10/21/24 10/21/24 Unknown History (Colace) enoxaparin 60 mg/0.6 mL 60 mg SUBCUT Q12H 10/21/24 10/21/24 Unknown History subcutaneous syringe (Lovenox) estradiol 0.01% (0.1 mg/gram) 1 appful vaginal .AT NIGHT TWICE 10/21/24 10/21/24 Unknown History vaginal cream WEEK furosemide 20 mg tablet 10 mg PO DAILY 10/21/24 10/21/24 Unknown History gabapentin 100 mg capsule 100 mg PO .LUNCH 10/21/24 10/21/24 Unknown History gabapentin 300 mg capsule 300 mg PO TID 10/21/24 10/21/24 Unknown History guaifenesin 600 mg tablet, 600 mg PO BID 10/21/24 10/21/24 Unknown History extended release 12 hr (Mucinex) ipratropium 0.5 mg-albuterol 3 mg 3 ml inhalation Q4H PRN Shortness 10/21/24 10/21/24 Unknown History (2.5 mg base)/3 mL nebulization Of Breath soln loperamide 2 mg-simethicone 125 mg 1 tab PO DAILY 10/21/24 10/21/24 Unknown History tablet mirabegron 25 mg tablet,extended 25 mg PO DAILY 10/21/24 10/21/24 Unknown History release 24 hr (Myrbetriq) naloxone 1 mg/mL injection syringe See Rx Instructions .Route 10/21/24 10/21/24 Unknown History .COMPLEX PRN overdose omeprazole 40 mg capsule,delayed 40 mg PO BID 10/21/24 10/21/24 Unknown History release ondansetron 4 mg disintegrating 4 mg PO DAILY PRN Nausea And 10/21/24 10/21/24 Unknown History tablet Vomiting oseltamivir 30 mg capsule (Tamiflu) 30 mg PO DAILY 10/21/24 10/21/24 Unknown History trazodone 50 mg tablet 25 mg PO BEDTIME 10/21/24 10/21/24 Unknown History trospium 20 mg tablet 20 mg PO BID 10/21/24 10/21/24 Unknown History Allergies Allergy/AdvReac Type Severity Reaction Status Date / Time lactose Allergy Unknown Verified 09/27/24 14:12 Sulfa (Sulfonamide Allergy ADR-Vomitin Verified 09/27/24 14:12 Antibiotics) g PFSH Acute PFSH: Medical History Pacemaker Seropositive rheumatoid arthritis of multiple sites Immunization counseling High risk medication use Anal sphincter incompetence History of nonmelanoma skin cancer History of melanoma Scoliosis CAD (coronary artery disease) Rheumatoid arthritis Reported hx by pt Scoliosis (and kyphoscoliosis), idiopathic Anxiety and depression Afib Menopause Hypothyroidism Angina pectoris GERD (gastroesophageal reflux disease) Recurrent urinary tract infection Hyperlipidemia Hypertension Surgical History History of hand surgery History of open heart surgery 2000 History of hysterectomy History of intestinal surgery History of tonsillectomy Hx of foot surgery right foot Family History Mother Diabetes Other Parkinson disease Social History Smoking and tobacco/nicotine status: never used tobacco/nicotine Alcohol intake: never Substance/Drug Use: never Adopted: No Caregiver/support person: No Lives independently: No Household members: family service: No Sexually active: No Do you think of yourself as: Straight/Heterosexual Current gender identity: Female Vitals/I&O/Wt Weight last 48 hrs Weight 56.387 kg Physical Exam Narrative: On 2 L nasal cannula. Const: COMMON NORMALS: no acute distress and patient oriented x3 Resp: COMMON NORMALS: normal respiratory effort, No retractions, No use of accessory muscles and clear to auscultation bilaterally AUSCULTATION: clear to auscultation bilaterally Cardio: COMMON NORMALS: regular rate, S1 normal heart sound present and S2 normal heart sound present; negative for regular rhythm RATE: regular rate RHYTHM: regular rhythm HEART SOUNDS: S1 normal heart sound present and S2 normal heart sound present GI: COMMON NORMALS: Normal to inspection, nondistended, normoactive bowel sounds present and non-tender Extremity: COMMON NORMALS: no pedal edema Neuro: COMMON NORMALS: patient oriented x3 Psych: COMMON NORMALS: mental status grossly normal Data 10/21/24 09:40 10/21/24 09:40 A&P Assessment and plan (1) Hypertension: Qualifiers: Hypertension type: primary hypertension Qualified Code(s): I10 - Essential (primary) hypertension (2) CHF (congestive heart failure), NYHA class II: Qualifiers: Congestive heart failure type: unspecified Qualified Code(s): I50.9 - Heart failure, unspecified (3) CAD (coronary artery disease): (4) Pacemaker: (5) PVD (peripheral vascular disease): (6) Hyperlipidemia: Qualifiers: Hyperlipidemia type: mixed hyperlipidemia Qualified Code(s): E78.2 - Mixed hyperlipidemia (7) Hypothyroidism: (8) GERD (gastroesophageal reflux disease): (9) Acute anemia: (10) Rheumatoid arthritis: Qualifiers: Rheumatoid arthritis location: unspecified site Rheumatoid factor presence: unspecified presence Qualified Code(s): M06.9 - Rheumatoid arthritis, unspecified Plan #Influenza positive #Oxygen dependent supplemental 2 L #Pneumonia #Generalized weakness most likely secondary to above #Atrial fibrillation with RVR #Hypertension #Peripheral arterial disease #Chronic congestive heart failure #Hypothyroidism #History of CABG status post PCI #Rheumatoid arthritis ?Check procalcitonin, blood culture, sputum culture Gram stain ? Start azithromycin, ceftriaxone ? Placed on Tamiflu x 5 days total ? Will interrogate pacemaker ? Check troponins, EKG ? Patient is rate controlled at this time. Amiodarone drip has been turned off. ? Creatinine 1.1. Will place on low-dose Tamiflu. ? Potassium is 3.8 this morning. Will replete with 40 oral ? Check echo. Result is pending at this time ? Patient denies any chest pain or shortness of breath at this time but is requiring 2 L supplemental nasal cannula which is most likely secondary to active influenza and pneumonia infection. ? Hemoglobin 9.9 this morning. Does have chronic anemia. ? Will need to confirm home medications prior to restarting. ? Continue atorvastatin, folic acid, omeprazole at this time. ? Hold methotrexate. ? Interrogate pacemaker ? Vitals are stable at this time. Continue to monitor. ? Patient on any anticoagulation as per cardiology and rheumatology notes that I have reviewed from recent visits however she is on omeprazole 40 twice daily. Question GI bleed?. I do see therapeutic Lovenox 60 twice daily on her home medications. Will need to address this with the patient prior to ordering. Full code DVT prophylaxis: Will hold off at this time. Place SCDs PDMP PDMP Reviewed: Not Reviewed Attestations Medical Necessity Statement*: Requires continued hospitalization for at least 48 hours secondary to pneumonia. Diagnoses Primary hypertension I10 Hypertension type: primary hypertension Congestive heart failure, NYHA class 2, unspecified congestive heart failure type I50.9 Congestive heart failure type: unspecified CAD (coronary artery disease) I25.10 Pacemaker Z95.0 PVD (peripheral vascular disease) I73.9 Mixed hyperlipidemia E78.2 Hyperlipidemia type: mixed hyperlipidemia Hypothyroidism E03.9 GERD (gastroesophageal reflux disease) K21.9 Acute anemia D64.9 Rheumatoid arthritis, involving unspecified site, unspecified whether rheumatoid factor present M06.9 Rheumatoid arthritis location: unspecified site Rheumatoid factor presence: unspecified presence
--- NOTE | 2024-10-21 09:39 | ECG_ITS ---
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
[2024-10-21] MEDS: cefTRIAXone 1,000 mg SDV 1000 MG IVP (10:04)
[2024-10-21] MEDS: pantoprazole 40 mg SDV IVP (10:04)
[2024-10-21 10:05] LABS: Basophils % 0.5 %; Eosinophils # 0.1 10^3/uL (0.0-0.8); Eosinophils % 3.2 %; Hematocrit 33.4 % (36-47); Lymphocytes % 24.7 %; Mean Corpuscular HGB Conc 29.6 g/dL (30-55); Mean Corpuscular Hemoglobin 29.6 pg (27-33); Mean Corpuscular Volume 99.7 fl (85-98); Mean Platelet Volume 10.8 fL (7.4-10.4); Monocytes # 0.5 10^3/uL (0.2-0.9); Monocytes % 12.3 %; Neutrophils # 2.38 10^3/uL (1.8-7.7); Neutrophils % 58.8 %; Nucleated Red Blood Cells % 0 %; Platelet Count 133 10^3/cmm (157-399); Red Blood Count 3.35 10^6/uL (3.85-5.65); Red Cell Distribution Width 14.6 % (12.1-15.1); White Blood Count 4.05 10^3/uL (3.29-11.43)
[2024-10-21] MEDS: AZITHROMYCIN ADD-Vantage 500 MG in 0.9% NaCl ADD-Vantage 250 ML 250 MG IV (10:05)
[2024-10-21] MEDS: sodium chloride 0.9% 1,000 ML 75 ML IV (10:05)
[2024-10-21 10:21] LABS: Slide Review Slide Review Perform
[2024-10-21 10:29] LABS: Troponin(5th) Baseline 40 ng/L (0-10)
[2024-10-21 10:30] LABS: Estmated Average Glucose 111; Hemoglobin A1C 5.5 % (4.0-6.0); Lactic Sepsis W/Reflex 1.1 mmol/L (0.5-2.2)
[2024-10-21 10:35] LABS: Procalcitonin 0.99 ng/mL (0-0.5); Thyroid Stimulating Hormone 0.83 uIU/mL (0.27-4.20)
[2024-10-21 10:46] LABS: Alanine Aminotransferase 17 U/L (0-33); Alkaline Phosphatase 322 U/L (35-105); Anion Gap 21.3 (5-19); Aspartate Amino Transferase 22 U/L (0-32); Blood Urea Nitrogen 23 mg/dL (8-23); C Reactive Protein 50.1 mg/L (0.0-4.9); Calcium 8.2 mg/dL (8.5-10.5); Carbon Dioxide 17 mmol/L (22-29); Chloride 101 mmol/L (98-107); Glucose 94 mg/dL (65-115); Magnesium 2.1 mg/dL (1.7-2.3); Osmolality Calculated 285 mOsm/kg (285-295); Phosphorus 3.5 mg/dL (2.5-4.5); Potassium 3.3 mmol/L (3.5-5.1); Sodium 136 mmol/L (136-145); Total Bilirubin 0.2 mg/dL (0.15-1.2)
[2024-10-21 10:48] LABS: Creatinine Clr Calc Pharmacy 30.3093
--- NOTE | 2024-10-21 11:27 | PC.PHAR ---
Pt unable to verify medications. Med rec completed with current med list with last fill dates and day supply via [facility].
[2024-10-21] MEDS: benzonatate 100 mg Capsule PO ×2 (11:36→18:34)
[2024-10-21] MEDS: ipratropium-albuterol 3 mL Neb INHALATION ×3 (11:37→20:20)
--- NOTE | 2024-10-21 11:40 | ECG_ITS ---
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: : 1935 Requested By: Elis Pagan Order Number: [id number] Reading MD: SATURNINO LEY Measurements Intervals [place] Rate: 65 P: 34 [place]: 178 QRS: 1 QRSD: 84 T: 33 QT: 388 QTc: 405 Interpretive Statements UNCERTAIN IRREGULAR RHYTHM ELECTRONIC VENTRICULAR PACEMAKER -- CONTOUR ANALYSIS BASED ON INTRINSIC RHYTHM NONSPECIFIC T-WAVE ABNORMALITY ABNORMAL RHYTHM ECG Compared to ECG 10/21/2024 09:39:23 Sinus rhythm no longer present T-wave abnormality still present Electronically Signed On 10-21-2024 19:32:07 BLAST HOLE DRILLER by SATURNINO LEY [id number] [id number]
[2024-10-21 13:45] LABS: Troponin 5 2HR 36.48 ng/L (0-10); Troponin 5 2HR Delta -3.52 ABS# (0-10)
--- NOTE | 2024-10-21 14:07 | XRR_ITS ---
PROCEDURE INFORMATION: Exam: XR Chest Exam date and time: 10/21/2024 2:22 PM Age: 89 years old Clinical indication: Other: Pneumonia; Prior surgery; Surgery date: 6+ months; Surgery type: Open heart pacer TECHNIQUE: Imaging protocol: Radiologic exam of the chest. Views: 1 view. COMPARISON: CR XR chest 1V portable [id number] 11/30/2023 12:26 PM FINDINGS: Lungs: Curvilinear bibasilar atelectasis or scarring. Possible retrocardiac opacity. Pleural spaces: No pleural effusion. No pneumothorax. Heart/Mediastinum: No cardiomegaly. Bones/joints: Sternotomy wires noted. Visualized osseous structures are intact. XR/XR chest 1V portable [id number] IMPRESSION: Possible retrocardiac opacity/left basilar pneumonia.
[2024-10-21] MEDS: gabapentin 300 mg Capsule PO ×2 (14:47→20:49)
[2024-10-21] MEDS: acetaminophen 325 mg Tablet 650 MG PO ×2 (14:48→22:55)
[2024-10-21] MEDS: potassium chloride ER 20 mEq Tablet 40 MEQ PO (14:48)
--- NOTE | 2024-10-21 15:16 | ECG_ITS ---
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
[2024-10-21 16:09] LABS: Troponin 5 6HR 31.25 ng/L (0-10)
[2024-10-21 16:11] LABS: Troponin 5 6HR Delta -8.75 ng/L (0-12)
--- NOTE | 2024-10-21 17:35 | PC.NURSE ---
Pacemaker interrogated, report placed in paper chart.
[2024-10-21] MEDS: guaiFENesin 600 mg Tablet PO (18:34)
[2024-10-21] MEDS: pantoprazole DR 40 mg Tablet PO (18:34)
[2024-10-21] MEDS: atorvastatin 40 mg Tablet PO (20:49)
[2024-10-21] MEDS: trazodone 50 mg Tablet 25 MG PO (20:49)
[2024-10-22] VITALS (45 sets, daily range): BP systolic 131–205; BP diastolic 59–117; PULSE 64–93; RESP 15–34; TEMP 36.6–36.7; O2SAT 89–100
[2024-10-22 05:34] LABS: Basophils % 0.8 %; Eosinophils # 0.2 10^3/uL (0.0-0.8); Eosinophils % 6.3 %; Hematocrit 31.9 % (36-47); Lymphocytes # 0.9 10^3/uL (0.8-4.8); Lymphocytes % 24.5 %; Mean Corpuscular HGB Conc 29.8 g/dL (30-55); Mean Corpuscular Hemoglobin 29.5 pg (27-33); Mean Corpuscular Volume 99.1 fl (85-98); Mean Platelet Volume 10.9 fL (7.4-10.4); Monocytes # 0.4 10^3/uL (0.2-0.9); Monocytes % 10.5 %; Neutrophils # 2.09 10^3/uL (1.8-7.7); Neutrophils % 57.6 %; Nucleated Red Blood Cells % 0 %; Platelet Count 143 10^3/cmm (157-399); Red Blood Count 3.22 10^6/uL (3.85-5.65); Red Cell Distribution Width 14.7 % (12.1-15.1); White Blood Count 3.63 10^3/uL (3.29-11.43)
[2024-10-22 05:52] LABS: Alanine Aminotransferase 17 U/L (0-33); Alkaline Phosphatase 313 U/L (35-105); Anion Gap 14.3 (5-19); Aspartate Amino Transferase 22 U/L (0-32); Blood Urea Nitrogen 21 mg/dL (8-23); Carbon Dioxide 21 mmol/L (22-29); Chloride 112 mmol/L (98-107); Globulin 2.1 g/dL (1.3-4.6); Glucose 79 mg/dL (65-115); Osmolality Calculated 298 mOsm/kg (285-295); Potassium 4.3 mmol/L (3.5-5.1); Sodium 143 mmol/L (136-145); Total Bilirubin 0.2 mg/dL (0.15-1.2); Total Protein 5.1 g/dL (6.6-8.7)
[2024-10-22 06:01] LABS: Magnesium 2.1 mg/dL (1.7-2.3)
[2024-10-22 06:12] LABS: Glucose Point of Care 95 mg/dL (70-110)
[2024-10-22] MEDS: acetaminophen 325 mg Tablet 650 MG PO ×3 (07:28→21:01)
[2024-10-22] MEDS: hyDRALAzine 20 mg/mL INJ 1 mL 5 MG IVP (08:00)
[2024-10-22] MEDS: ipratropium-albuterol 3 mL Neb INHALATION ×4 (08:01→20:26)
[2024-10-22] MEDS: cholecalciferol (vitamin D3) 1,000 unit Tablet 1000 UNIT PO (08:02)
[2024-10-22] MEDS: folic acid 1 mg Tablet PO (08:02)
[2024-10-22] MEDS: pantoprazole DR 40 mg Tablet PO ×2 (08:02→17:58)
[2024-10-22] MEDS: gabapentin 300 mg Capsule PO ×3 (08:02→21:01)
[2024-10-22] MEDS: levothyroxine 100 mcg Tablet PO (08:03)
[2024-10-22] MEDS: oseltamivir phosphate 30 mg Capsule PO (08:03)
[2024-10-22] MEDS: cefTRIAXone 1,000 mg SDV 1000 MG IVP (09:20)
[2024-10-22] MEDS: AZITHROMYCIN ADD-Vantage 500 MG in 0.9% NaCl ADD-Vantage 250 ML 250 MG IV (09:24)
[2024-10-22] MEDS: guaiFENesin 600 mg Tablet PO ×2 (09:25→17:58)
[2024-10-22] MEDS: ondansetron 2 mg/ML SDV 2 mL 4 MG IVP (10:35)
[2024-10-22] MEDS: benzonatate 100 mg Capsule PO (10:49)
--- NOTE | 2024-10-22 13:25 | P.PN_ITS ---
Subjective 2 Subjective: Seen this morning. Patient is on 1 L nasal cannula at this time. Urine output 1500 cc overnight. Remains in sinus rhythm. Amiodarone was stopped yesterday upon arrival. Had a long discussion with her regarding anticoagulation. She states she was to be on it before from [place] however when she moved to [place] it was taken off by her doctor. She says she has to use a powder to stop bleeding from her arms and legs at times. I assume this might be XELOX granules. She is unable to tell me if there is a history of GI bleed. Her friend also at bedside is unsure. I discussed with her regarding her chronic anemia and she was unable to provide much history regarding that. Had a discussion with patient that going forward I will keep anticoagulation off at this time secondary to unknown history and chronic anemia. She agrees to discuss with cardiology as an outpatient along with her primary care doctor. Patient states that she is scared to go home because she will be alone. She is requesting for home health if possible. Discussed with her that she will not be discharged until she is deemed medically stable and it is a safe discharge. Vitals/I&O/Wt Last Vital Signs Temp 97.8 F 10/22/24 09:00 Pulse 86 10/22/24 12:00 Resp 18 10/22/24 12:00 BP 134/87 10/22/24 12:00 Pulse Ox 96 10/22/24 12:00 O2 Del Method Room Air 10/22/24 12:00 O2 Flow Rate 1 10/22/24 09:30 10/21/24 10/22/24 10/22/24 22:59 06:59 14:59 Intake Total 740 / 1230 Output Total 500 / 500 350 / 850 650 / 650 Balance 240 / 730 -350 / 380 -650 / -650 Weight last 48 hrs Weight 56.155 kg Weight 56.387 kg Physical Exam 2 Narrative: On 1 L nasal cannula. Const: COMMON NORMALS: no acute distress and patient oriented x3 Resp: COMMON NORMALS: normal respiratory effort, No retractions, No use of accessory muscles and clear to auscultation bilaterally AUSCULTATION: clear to auscultation bilaterally Cardio: COMMON NORMALS: regular rate, regular rhythm, S1 normal heart sound present and S2 normal heart sound present RATE: regular rate RHYTHM: r egular rhythm HEART SOUNDS: S1 normal heart sound present and S2 normal heart sound present GI: COMMON NORMALS: Normal to inspection, nondistended, normoactive bowel sounds present and non-tender Extremity: COMMON NORMALS: no pedal edema Neuro: COMMON NORMALS: patient oriented x3 Psych: COMMON NORMALS: mental status grossly normal Urinary Catheter Management: Alanis: Cath Placed During This Visit: yes, but has since been removed by the nurse Reason for Continuing Indwelling Catheter: Decision to DC Catheter Date Urinary Catheter Removed: 10/22/24 Time Urinary Catheter Discontinued: 12:20 Data 10/22/24 04:29 10/22/24 04:29 Micro: Microbiology 10/21/24 13:12 Blood Culture - Preliminary Blood NEGATIVE TO DATE 10/21/24 09:40 Blood Culture - Preliminary Blood NEGATIVE TO DATE A&P Assessment and plan (1) Hypertension: Qualifiers: Hypertension type: primary hypertension Qualified Code(s): I10 - Essential (primary) hypertension (2) CHF (congestive heart failure), NYHA class II: Qualifiers: Congestive heart failure type: unspecified Qualified Code(s): I50.9 - Heart failure, unspecified (3) CAD (coronary artery disease): (4) Pacemaker: (5) PVD (peripheral vascular disease): (6) Hyperlipidemia: Qualifiers: Hyperlipidemia type: mixed hyperlipidemia Qualified Code(s): E78.2 - Mixed hyperlipidemia (7) Hypothyroidism: (8) GERD (gastroesophageal reflux disease): (9) Acute anemia: (10) Rheumatoid arthritis: Qualifiers: Rheumatoid arthritis location: unspecified site Rheumatoid factor presence: unspecified presence Qualified Code(s): M06.9 - Rheumatoid arthritis, unspecified Plan #Influenza positive #Oxygen dependent supplemental 2 L #Pneumonia #Generalized weakness most likely secondary to above #Atrial fibrillation with RVR #Hypertension #Peripheral arterial disease #Chronic congestive heart failure #Hypothyroidism #History of CABG status post PCI #Rheumatoid arthritis ?Check procalcitonin, blood culture, sputum culture Gram stain ? Start azithromycin, ceftriaxone ? Placed on Tamiflu x 5 days total ? Will interrogate pacemaker ? Check troponins, EKG ? Patient is rate controlled at this time. Amiodarone drip has been turned off. ? Creatinine 1.1. Will place on low-dose Tamiflu. ? Potassium is 3.8 this morning. Will replete with 40 oral ? Check echo. Result is pending at this time ? Patient denies any chest pain or shortness of breath at this time but is requiring 2 L supplemental nasal cannula which is most likely secondary to active influenza and pneumonia infection. ? Hemoglobin 9.9 this morning. Does have chronic anemia. ? Will need to confirm home medications prior to restarting. ? Continue atorvastatin, folic acid, omeprazole at this time. ? Hold methotrexate. ? Interrogate pacemaker ? Vitals are stable at this time. Continue to monitor. ? Patient on any anticoagulation as per cardiology and rheumatology notes that I have reviewed from recent visits however she is on omeprazole 40 twice daily. Question GI bleed?. I do see therapeutic Lovenox 60 twice daily on her home medications. Will need to address this with the patient prior to ordering. Full code DVT prophylaxis: Will hold off at this time. Place SCDs 10/22/2024 - feeling better now on room air PT/OT in AM patient feels unsafe going home due to weakness in sinus rhythm decision made to stay off AC for now and to discuss with PCP and cardiology outpatient continue tamiflu cr at baseline transfer to floor today friend at bedside PDMP PDMP Reviewed: Not Reviewed Attestations 2 Medical Necessity Statement*: improving, possible dc in am Diagnoses Primary hypertension I10 Hypertension type: primary hypertension Congestive heart failure, NYHA class 2, unspecified congestive heart failure type I50.9 Congestive heart failure type: unspecified CAD (coronary artery disease) I25.10 Pacemaker Z95.0 PVD (peripheral vascular disease) I73.9 Mixed hyperlipidemia E78.2 Hyperlipidemia type: mixed hyperlipidemia Hypothyroidism E03.9 GERD (gastroesophageal reflux disease) K21.9 Acute anemia D64.9 Rheumatoid arthritis, involving unspecified site, unspecified whether rheumatoid factor present M06.9 Rheumatoid arthritis location: unspecified site Rheumatoid factor presence: unspecified presence
--- NOTE | 2024-10-22 18:10 | PC.NURSE ---
SHift SUmmary: uneventful shift. Up to a chair for most of the day. 1 person standby assist to get to chair. Has remained Normal sinus. Initially was hypertensive, prn hydralazine was given once this morning. Weaned from 2L NC to room air. 800mL of urine output. 2 bowel movements.
[2024-10-22] MEDS: trazodone 50 mg Tablet 25 MG PO (21:00)
[2024-10-22] MEDS: atorvastatin 40 mg Tablet PO (21:01)
--- NOTE | 2024-10-22 22:45 | PC.NURSE ---
Void Unable to accurately measure amount of urine voided as patient voided in brief. One brief soiled.
[2024-10-23] VITALS (34 sets, daily range): BP systolic 107–204; BP diastolic 56–110; PULSE 71–95; RESP 16–26; TEMP 36.3–37; O2SAT 90–98
--- NOTE | 2024-10-23 05:36 | PC.NURSE ---
Void Unable to accurately measure urine amount. Patient saturated one brief.
[2024-10-23 05:42] LABS: Basophils % 0.5 %; Eosinophils # 0.3 10^3/uL (0.0-0.8); Eosinophils % 8.8 %; Hematocrit 31.6 % (36-47); Lymphocytes # 1.1 10^3/uL (0.8-4.8); Lymphocytes % 29.7 %; Mean Corpuscular HGB Conc 30.7 g/dL (30-55); Mean Corpuscular Hemoglobin 29.4 pg (27-33); Mean Corpuscular Volume 95.8 fl (85-98); Mean Platelet Volume 10.8 fL (7.4-10.4); Monocytes # 0.3 10^3/uL (0.2-0.9); Monocytes % 7.2 %; Neutrophils # 2.01 10^3/uL (1.8-7.7); Neutrophils % 53.3 %; Nucleated Red Blood Cells % 0 %; Platelet Count 154 10^3/cmm (157-399); Red Cell Distribution Width 14.6 % (12.1-15.1); White Blood Count 3.77 10^3/uL (3.29-11.43)
[2024-10-23 06:01] LABS: Alanine Aminotransferase 17 U/L (0-33); Albumin Level 3.1 g/dL (3.5-5.2); Alkaline Phosphatase 338 U/L (35-105); Aspartate Amino Transferase 21 U/L (0-32); Blood Urea Nitrogen 18 mg/dL (8-23); Calcium 8.4 mg/dL (8.5-10.5); Carbon Dioxide 22 mmol/L (22-29); Chloride 110 mmol/L (98-107); Creatinine Clr Calc Pharmacy 29.9838; Globulin 2.7 g/dL (1.3-4.6); Glucose 84 mg/dL (65-115); Osmolality Calculated 295 mOsm/kg (285-295); Sodium 142 mmol/L (136-145); Total Bilirubin 0.4 mg/dL (0.15-1.2); Total Protein 5.8 g/dL (6.6-8.7)
[2024-10-23] MEDS: guaiFENesin 600 mg Tablet PO ×2 (08:37→17:15)
[2024-10-23] MEDS: cholecalciferol (vitamin D3) 1,000 unit Tablet 1000 UNIT PO (08:37)
[2024-10-23] MEDS: pantoprazole DR 40 mg Tablet PO ×2 (08:38→17:15)
[2024-10-23] MEDS: gabapentin 300 mg Capsule PO ×3 (08:38→19:52)
[2024-10-23] MEDS: cefTRIAXone 1,000 mg SDV 1000 MG IVP (08:38)
[2024-10-23] MEDS: levothyroxine 100 mcg Tablet PO (08:38)
[2024-10-23] MEDS: oseltamivir phosphate 30 mg Capsule PO (08:38)
[2024-10-23] MEDS: AZITHROMYCIN ADD-Vantage 500 MG in 0.9% NaCl ADD-Vantage 250 ML 250 MG IV (08:39)
[2024-10-23] MEDS: folic acid 1 mg Tablet PO (09:17)
[2024-10-23 11:37] LABS: Basophils % 0.6 %; Eosinophils # 0.3 10^3/uL (0.0-0.8); Eosinophils % 5.8 %; Hematocrit 35.7 % (36-47); Lymphocytes % 18.4 %; Mean Corpuscular HGB Conc 30.8 g/dL (30-55); Mean Corpuscular Hemoglobin 29.6 pg (27-33); Mean Corpuscular Volume 96.2 fl (85-98); Mean Platelet Volume 10.5 fL (7.4-10.4); Monocytes # 0.3 10^3/uL (0.2-0.9); Monocytes % 5.8 %; Neutrophils # 3.55 10^3/uL (1.8-7.7); Nucleated Red Blood Cells % 0 %; Platelet Count 163 10^3/cmm (157-399); Red Blood Count 3.71 10^6/uL (3.85-5.65); Red Cell Distribution Width 14.5 % (12.1-15.1); White Blood Count 5.15 10^3/uL (3.29-11.43)
[2024-10-23] MEDS: acetaminophen 325 mg Tablet 650 MG PO ×2 (12:26→17:20)
[2024-10-23] MEDS: amiodarone 200 mg Tablet 400 MG PO ×2 (12:27→17:15)
[2024-10-23] MEDS: ipratropium-albuterol 3 mL Neb INHALATION ×2 (12:41→15:49)
--- NOTE | 2024-10-23 15:44 | P.PN_ITS ---
Subjective 2 Subjective: No new complaints today. Heart rate goes up to 150 on attempting to move from bed to bedside commode. Medications: Reviewed: Yes Vitals/I&O/Wt Last Vital Signs Temp 98.1 F 10/23/24 12:00 Pulse 83 10/23/24 12:42 Resp 20 H 10/23/24 12:42 BP 171/84 10/23/24 12:00 Pulse Ox 96 10/23/24 12:42 O2 Del Method Room Air 10/23/24 12:42 O2 Flow Rate 1 10/22/24 09:30 10/23/24 10/23/24 10/23/24 06:59 14:59 22:59 Intake Total 250 / 250 Balance 250 / 250 Weight last 48 hrs Weight 54.9 kg Weight 56.155 kg Physical Exam 2 Urinary Catheter Management: Alanis: Cath Placed During This Visit: yes, but has since been removed by the nurse Reason for Continuing Indwelling Catheter: Decision to DC Catheter Date Urinary Catheter Removed: 10/22/24 Time Urinary Catheter Discontinued: 12:20 Data 10/23/24 11:11 10/23/24 04:49 Micro: Microbiology 10/21/24 13:12 Blood Culture - Preliminary Blood NEGATIVE TO DATE 10/21/24 09:40 Blood Culture - Preliminary Blood NEGATIVE TO DATE A&P Assessment and plan (1) Hypertension: Qualifiers: Hypertension type: primary hypertension Qualified Code(s): I10 - Essential (primary) hypertension (2) CHF (congestive heart failure), NYHA class II: Qualifiers: Congestive heart failure type: unspecified Qualified Code(s): I50.9 - Heart failure, unspecified (3) CAD (coronary artery disease): (4) Pacemaker: (5) PVD (peripheral vascular disease): (6) Hyperlipidemia: Qualifiers: Hyperlipidemia type: mixed hyperlipidemia Qualified Code(s): E78.2 - Mixed hyperlipidemia (7) Hypothyroidism: (8) GERD (gastroesophageal reflux disease): (9) Acute anemia: (10) Rheumatoid arthritis: Qualifiers: Rheumatoid arthritis location: unspecified site Rheumatoid factor presence: unspecified presence Qualified Code(s): M06.9 - Rheumatoid arthritis, unspecified Plan #Influenza positive #Oxygen dependent supplemental 2 L #Pneumonia #Generalized weakness most likely secondary to above #Atrial fibrillation with RVR #Hypertension #Peripheral arterial disease #Chronic congestive heart failure #Hypothyroidism #History of CABG status post PCI #Rheumatoid arthritis ?Check procalcitonin, blood culture, sputum culture Gram stain ? Start azithromycin, ceftriaxone ? Placed on Tamiflu x 5 days total ? Will interrogate pacemaker ? Check troponins, EKG ? Patient is rate controlled at this time. Amiodarone drip has been turned off. ? Creatinine 1.1. Will place on low-dose Tamiflu. ? Potassium is 3.8 this morning. Will replete with 40 oral ? Check echo. Result is pending at this time ? Patient denies any chest pain or shortness of breath at this time but is requiring 2 L supplemental nasal cannula which is most likely secondary to active influenza and pneumonia infection. ? Hemoglobin 9.9 this morning. Does have chronic anemia. ? Will need to confirm home medications prior to restarting. ? Continue atorvastatin, folic acid, omeprazole at this time. ? Hold methotrexate. ? Interrogate pacemaker ? Vitals are stable at this time. Continue to monitor. ? Patient on any anticoagulation as per cardiology and rheumatology notes that I have reviewed from recent visits however she is on omeprazole 40 twice daily. Question GI bleed?. I do see therapeutic Lovenox 60 twice daily on her home medications. Will need to address this with the patient prior to ordering. Full code DVT prophylaxis: Will hold off at this time. Place SCDs 10/22/2024 - feeling better now on room air PT/OT in AM patient feels unsafe going home due to weakness in sinus rhythm decision made to stay off AC for now and to discuss with PCP and cardiology outpatient continue tamiflu cr at baseline transfer to floor today friend at bedside October 23, 2024 Patient is on room air. Intermittently heart rate goes up to 150s. Patient reports previously being on amiodarone, beta-blockers and digoxin at 1 point. 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 She received a single lead pacemaker in November 2023. On discharge from this admission it appears amiodarone was discontinued due to bradycardia. She used to be on Pradaxa which was also discontinued. Patient reports that she has been having intermittent palpitations at home for a long time. Her heart rate would go up to 140s and 150s. Pacemaker interrogation that was ordered is currently pending. Patient was on an amiodarone infusion when she was first transferred here from an outside hospital. I am going to start amiodarone 400 mg every 12 hours with plan to continue this for the near future. Patient has a pacemaker now, therefore bradycardia from amiodarone should not be an issue. Monitor LFTs. Normal thyroid function noted. Additionally start metoprolol 12.5 mg p.o. twice daily. Closely monitor her blood pressure. Will uptitrate if tolerated without episodes of orthostatic hypotension. Again uncertain as to why patient is not on any anticoagulation. To the best of my understanding, this was likely temporary holding of Pradaxa, however unable to confirm any details at this point. It may be safest to withhold anticoagulation for now, and to be readdressed after ensuring that she does not have any history of GI bleeding or other reasons that would make anticoagulation contraindicated. Patient is stable to be moved from ICU to CSU. PDMP PDMP Reviewed: Not Reviewed Attestations 2 Medical Necessity Statement*: Needs better control of heart rate, initiate oral medications and closely monitor for response. Coding Level of Care Code Acute Code for g Fwd Diagnoses Primary hypertension I10 Hypertension type: primary hypertension Congestive heart failure, NYHA class 2, unspecified congestive heart failure type I50.9 Congestive heart failure type: unspecified CAD (coronary artery disease) I25.10 Pacemaker Z95.0 PVD (peripheral vascular disease) I73.9 Mixed hyperlipidemia E78.2 Hyperlipidemia type: mixed hyperlipidemia Hypothyroidism E03.9 GERD (gastroesophageal reflux disease) K21.9 Acute anemia D64.9 Rheumatoid arthritis, involving unspecified site, unspecified whether rheumatoid factor present M06.9 Rheumatoid arthritis location: unspecified site Rheumatoid factor presence: unspecified presence
[2024-10-23] MEDS: hyDRALAzine 20 mg/mL INJ 1 mL 10 MG IVP (17:20)
[2024-10-23] MEDS: trazodone 50 mg Tablet 25 MG PO (19:52)
[2024-10-23] MEDS: atorvastatin 40 mg Tablet PO (19:52)
[2024-10-23] MEDS: metoprolol tartrate 25 mg Tablet 12.5 MG PO (19:53)
[2024-10-23] MEDS: oxyCODONE 5 mg IR Tab/Cap PO (20:39)
[2024-10-24] VITALS (7 sets, daily range): BP systolic 133–161; BP diastolic 56–99; PULSE 61–76; RESP 18–22; TEMP 36.4–36.9; O2SAT 92–97
[2024-10-24] MEDS: acetaminophen 325 mg Tablet 650 MG PO (00:56)
[2024-10-24 07:56] LABS: Nucleated Red Blood Cells % 0 %
[2024-10-24] MEDS: ipratropium-albuterol 3 mL Neb INHALATION (07:59)
[2024-10-24 08:19] LABS: Basophils % 0.7 %; Eosinophils # 0.3 10^3/uL (0.0-0.8); Eosinophils % 5.2 %; Hematocrit 37.4 % (36-47); Lymphocytes # 1.2 10^3/uL (0.8-4.8); Lymphocytes % 22.5 %; Mean Corpuscular HGB Conc 30.5 g/dL (30-55); Mean Corpuscular Hemoglobin 29.5 pg (27-33); Mean Corpuscular Volume 96.6 fl (85-98); Mean Platelet Volume 10.8 fL (7.4-10.4); Monocytes # 0.4 10^3/uL (0.2-0.9); Monocytes % 7.4 %; Neutrophils # 3.46 10^3/uL (1.8-7.7); Neutrophils % 63.6 %; Platelet Count 212 10^3/cmm (157-399); Red Blood Count 3.87 10^6/uL (3.85-5.65); Red Cell Distribution Width 14.4 % (12.1-15.1); White Blood Count 5.43 10^3/uL (3.29-11.43)
[2024-10-24 08:22] LABS: Alanine Aminotransferase 26 U/L (0-33); Albumin Level 3.5 g/dL (3.5-5.2); Alkaline Phosphatase 399 U/L (35-105); Anion Gap 19.4 (5-19); Aspartate Amino Transferase 35 U/L (0-32); Blood Urea Nitrogen 19 mg/dL (8-23); Calcium 8.7 mg/dL (8.5-10.5); Carbon Dioxide 19 mmol/L (22-29); Chloride 106 mmol/L (98-107); Creatinine Clr Calc Pharmacy 33.5683; Globulin 3.3 g/dL (1.3-4.6); Glucose 114 mg/dL (65-115); Osmolality Calculated 293 mOsm/kg (285-295); Potassium 4.4 mmol/L (3.5-5.1); Sodium 140 mmol/L (136-145); Total Bilirubin 0.5 mg/dL (0.15-1.2); Total Protein 6.8 g/dL (6.6-8.7)
[2024-10-24] MEDS: levothyroxine 100 mcg Tablet PO (08:33)
[2024-10-24] MEDS: cholecalciferol (vitamin D3) 1,000 unit Tablet 1000 UNIT PO (08:33)
[2024-10-24] MEDS: pantoprazole DR 40 mg Tablet PO (08:33)
[2024-10-24] MEDS: gabapentin 300 mg Capsule PO (08:33)
[2024-10-24] MEDS: folic acid 1 mg Tablet PO (08:33)
[2024-10-24] MEDS: oseltamivir phosphate 30 mg Capsule PO (08:34)
[2024-10-24] MEDS: guaiFENesin 600 mg Tablet PO (08:34)
[2024-10-24] MEDS: amiodarone 200 mg Tablet 400 MG PO (08:34)
[2024-10-24] MEDS: metoprolol tartrate 25 mg Tablet 12.5 MG PO (08:59)
[2024-10-24] MEDS: ACETAMINOPHEN 500 MG 500 EACH PO (09:16)
--- NOTE | 2024-10-24 10:31 | PC.NURSE ---
Attemted 2 different sizes of blankenship catheter and unable to get past the prostate. I waiting to try a coude. Pt refusing to let us try the coude catheter. First attempts did cause some trauma and has some blood with urination. May try again later. Informed Dr Wallace. is okay with waiting.
[2024-10-24] MEDS: ondansetron 2 mg/ML SDV 2 mL 4 MG IVP (11:41)
--- NOTE | 2024-10-24 13:34 | PM.DCS ---
Discharge Providers Date of Admission: 10/21/24 08:42 Date of Discharge: October 24, 2024 Attending Provider at Admission: Andrei Jarrett MD Attending Provider at Discharge: Nicole Kilpatrick MD Primary Care Provider: PARISH Medel Diagnoses at Discharge Discharge Diagnosis (1) Hypertension: Status: Acute Qualifiers: Hypertension type: primary hypertension Qualified Code(s): I10 - Essential (primary) hypertension (2) CHF (congestive heart failure), NYHA class II: Status: Acute Qualifiers: Congestive heart failure type: unspecified Qualified Code(s): I50.9 - Heart failure, unspecified (3) CAD (coronary artery disease): Status: Acute (4) Pacemaker: Status: Acute (5) PVD (peripheral vascular disease): Status: Acute (6) Hyperlipidemia: Status: Acute Qualifiers: Hyperlipidemia type: mixed hyperlipidemia Qualified Code(s): E78.2 - Mixed hyperlipidemia (7) Hypothyroidism: Status: Acute (8) GERD (gastroesophageal reflux disease): Status: Acute (9) Acute anemia: Status: Acute (10) Rheumatoid arthritis: Status: Acute Qualifiers: Rheumatoid arthritis location: unspecified site Rheumatoid factor presence: unspecified presence Qualified Code(s): M06.9 - Rheumatoid arthritis, unspecified Permanent problem details: Reported hx by pt Reason for Visit Reason for Visit: Flu pnemonia afib rvr Hospital Course Hospital Course Shanna Lang is a 89 year old female With past medical history of atrial fibrillation, hypertension, peripheral arterial disease, congestive heart failure, hypothyroidism, CABG, PCI, dyslipidemia, rheumatoid arthritis, subclavian artery stenosis, pacemaker placement in November 2023 who presented to the hospital as a transfer from [facility] for complaint of A-fib with RVR. She was found to be positive for influenza at the outside facility. Currently patient lives at an assisted living in [facility] and feeling weak and coughing for the last few days. When on arrival she had an oxygen requirement of 2 L/min. A-fib with RVR was treated initially with amiodarone infusion at [facility]. By the time patient presented with us her heart rate was in the 70s therefore amiodarone infusion was not continued. She started Tamiflu 30 mg p.o. daily in keeping with reduced creatinine clearance of 30. Additionally also started antibiotics for concern for left lower lobe pneumonia. She received ceftriaxone and azithromycin while in-house. Subsequently she developed A-fib RVR with heart rate going up to 150s with minimal exertion therefore she started on oral amiodarone and metoprolol. Review of her chart showed that patient used to be on these medications until 2022 and had been discontinued due to concerns for orthostatic hypotension(metoprolol) and bradycardia(amiodarone). Patient has since had a pacemaker placement in November 2023. With initiation of amiodarone 400 mg p.o. twice daily and metoprolol 25 mg p.o. daily, her heart rate has been between 60 to 70 bpm, currently patient is in paced rhythm. Pacemaker interrogation was undertaken. It showed few episodes of intermittent nonsustained V. tach, she did not have any witnessed V. tach episode while in the hospital. She will likely benefit from remaining on amiodarone and metoprolol going forward. Echocardiogram taken during hospital stay showed normal LVEF of 65%. Moderate LVH, grade 1 diastolic dysfunction without clinical signs or symptoms of CHF at this time. There is mild pulmonary hypertension with PASP of 52 mmHg. She did not have any low blood pressure recordings while in the hospital. Maximum blood pressure was noted to be at 204 systolic. With addition of metoprolol, today her blood pressure is at 137 at 175 at the time of this discharge. Patient will be discharging to an assisted living facility today. Instructed to check blood pressure daily and maintain a log to be brought to cardiology outpatient visit in a week's time. Instructed to not take metoprolol if systolic blood pressure is less than 90 mmHg. Additionally being discharged with 3 remaining days of Tamiflu. And levofloxacin 500 mg daily for 3 days for treatment of pneumonia. She has been able to be weaned down to room air. Currently saturating 96% on room air at the time of discharge. Overall patient is improved. Has some persistent fatigue, likely related to acute viral infection with influenza. Physical Exam Narrative: General: No acute distress, AO x3 HEENT: PERRLA, pupils bilaterally equal and reactive, pallors not present Chest: Normal vesicular breath sounds, no added sounds, equal good air entry bilaterally CVS: S1-S2 regular, no murmurs, no tachycardia, no gallops, no rubs Abdomen: Soft, nontender, no organomegaly, bowel sounds present Neuro: No focal deficits, no facial deformity, AO x3, power 5/5 in all limbs Extremities: no edema, clubbing or cyanosis Urinary Catheter Management: Alanis: Cath Placed During This Visit: yes, but has since been removed by the nurse Reason for Continuing Indwelling Catheter: Decision to DC Catheter Date Urinary Catheter Removed: 10/22/24 Time Urinary Catheter Discontinued: 12:20 Discharge Data Studies Completed and Pending Completed Studies During Hospitalization Category Date Time Status XR chest 1V portable [id number] Urgent Exams 10/21/24 14:07 Completed CV. echo complete* [id number] Routine Ultrasound 10/21/24 09:10 Completed Pending at discharge Category Date Time Status Blood Culture Stat Lab 10/21/24 13:12 Results Radiology Impressions Chest X-Ray 10/21/24 14:07 IMPRESSION: Possible retrocardiac opacity/left basilar pneumonia. Laboratory Results WBC 5.43 10^3/uL (3.29-11.43) 10/24/24 07:37 Corrected WBC Cancelled 10/21/24 09:40 RBC 3.87 10^6/uL (3.85-5.65) 10/24/24 07:37 Hgb 11.40 g/dL (11.27-16.99) 10/24/24 07:37 Hct 37.4 % (36-47) 10/24/24 07:37 MCV 96.6 fl (85-98) 10/24/24 07:37 MCH 29.5 pg (27-33) 10/24/24 07:37 MCHC 30.5 g/dL (30-55) 10/24/24 07:37 RDW 14.4 % (12.1-15.1) 10/24/24 07:37 Plt Count 212 10^3/cmm (157-399) D 10/24/24 07:37 MPV 10.8 fL (7.4-10.4) H 10/24/24 07:37 Gran % Cancelled 10/21/24 09:40 Neut % (Auto) 63.6 % 10/24/24 07:37 Lymph % (Auto) 22.5 % 10/24/24 07:37 Hernando % (Auto) 7.4 % 10/24/24 07:37 Eos % (Auto) 5.2 % 10/24/24 07:37 Baso % (Auto) 0.7 % 10/24/24 07:37 Neut # (Auto) 3.46 10^3/uL (1.8-7.7) 10/24/24 07:37 Lymph # (Auto) 1.2 10^3/uL (0.8-4.8) 10/24/24 07:37 Hernando # (Auto) 0.4 10^3/uL (0.2-0.9) 10/24/24 07:37 Eos # (Auto) 0.3 10^3/uL (0.0-0.8) 10/24/24 07:37 Baso # (Auto) 0.0 10^3/uL (0.0-0.1) 10/24/24 07:37 Absolute Gran (auto) Cancelled 10/21/24 09:40 Nucleated RBC % (auto) 0 % 10/24/24 07:37 Nucleated RBCs # 0.0 /100WBC 10/24/24 07:37 Sodium 140 mmol/L (136-145) 10/24/24 07:37 Potassium 4.4 mmol/L (3.5-5.1) 10/24/24 07:37 Chloride 106 mmol/L (98-107) 10/24/24 07:37 Carbon Dioxide 19 mmol/L (22-29) L 10/24/24 07:37 Anion Gap 19.4 (5-19) H 10/24/24 07:37 BUN 19 mg/dL (8-23) 10/24/24 07:37 Creatinine 1.0 mg/dL (0.5-0.9) H 10/24/24 07:37 GFR Calculation Not Reportable 10/24/24 07:37 Glucose 114 mg/dL (65-115) 10/24/24 07:37 POC Glucose 95 mg/dL (70-110) 10/22/24 06:09 Estimat Average Glucose 111 10/21/24 09:40 Hemoglobin A1c 5.5 % (4.0-6.0) 10/21/24 09:40 Calculated Osmolality 293 mOsm/kg (285-295) 10/24/24 07:37 Lactic Acid 1.1 mmol/L (0.5-2.2) 10/21/24 09:40 Calcium 8.7 mg/dL (8.5-10.5) 10/24/24 07:37 Phosphorus 3.5 mg/dL (2.5-4.5) 10/21/24 09:40 Magnesium 2.1 mg/dL (1.7-2.3) 10/22/24 04:29 Total Bilirubin 0.5 mg/dL (0.15-1.2) 10/24/24 07:37 AST 35 U/L (0-32) H 10/24/24 07:37 ALT 26 U/L (0-33) 10/24/24 07:37 Alkaline Phosphatase 399 U/L (35-105) H 10/24/24 07:37 Troponin T Baseline 40 ng/L (0-10) H 10/21/24 09:40 Troponin T 120 Minute 36.48 ng/L (0-10) H 10/21/24 13:12 Delta Troponin T -3.52 ABS# (0-10) L 10/21/24 13:12 Troponin T Hi Sens 6Hr 31.25 ng/L (0-10) H 10/21/24 15:40 Troponin T Hi Sens 6Hr Delta -8.75 ng/L (0-12) L 10/21/24 15:40 C-Reactive Protein 50.1 mg/L (0.0-4.9) H 10/21/24 09:40 Total Protein 6.8 g/dL (6.6-8.7) 10/24/24 07:37 Albumin 3.5 g/dL (3.5-5.2) 10/24/24 07:37 Globulin 3.3 g/dL (1.3-4.6) 10/24/24 07:37 Procalcitonin 0.99 ng/mL (0-0.5) H 10/21/24 09:40 TSH 0.83 uIU/mL (0.27-4.20) 10/21/24 09:40 Vitals Last Vital Signs Temp 97.8 F 10/24/24 11:44 Pulse 61 10/24/24 11:44 Resp 18 10/24/24 11:44 BP 137/75 10/24/24 11:44 Pulse Ox 96 10/24/24 11:44 O2 Del Method Room Air 10/24/24 11:44 O2 Flow Rate 1 10/22/24 09:30 Discharge Plan Discharge Patient Disposition: Home Condition: Stable Prescriptions: New levofloxacin 500 mg tablet 500 mg PO DAILY 3 Days Qty: 3 0RF amiodarone [Pacerone] 200 mg Tablet 400 mg PO BID Qty: 60 0RF Rx Instructions: take 400mg bidx 5 days, then 200mg BID for 7 days, then 200mg daily metoprolol succinate 25 mg capsule,sprinkle,ER 24hr 25 mg PO DAILY 30 Days Qty: 30 0RF oseltamivir [Tamiflu] 30 mg Capsule 30 mg PO DAILY 3 Days Qty: 3 0RF ondansetron 4 mg tablet,disintegrating 4 mg PO Q8H PRN (Reason: nausea and vomiting) 4 Days Qty: 14 0RF Continued (DME) Back brace See Rx Instructions .Route .MEDSUPPLY Qty: 1 0RF Rx Instructions: Fit patient for brace (DME) doughnut cushion See Rx Instructions .Route .MEDSUPPLY Qty: 1 0RF Rx Instructions: As directed ([facility]) Shower Chair See Rx Instructions .Route .MEDSUPPLY Qty: 1 0RF Rx Instructions: As directed (DME) accommodative orthotic See Rx Instructions .Route .MEDSUPPLY Qty: 1 0RF Rx Instructions: As directed by [employer] ([facility]) Incontince Briefs XL See Rx Instructions .Route .MEDSUPPLY Qty: 99 12RF Rx Instructions: As directed calcium carbonate [Tums] 200 mg calcium (500 mg) tablet,chewable 200 mg PO BID PRN (Reason: dyspepsia) 30 Days Qty: 60 2RF nitroglycerin 400 mcg/spray spray,non-aerosol 1 spray translingual Q5M PRN (Reason: chest pain) Qty: 4.9 3RF Rx Instructions: do not exceed 3 doses per episode tramadol 50 mg tablet 50 mg PO BID PRN (Reason: pain) 30 Days Qty: 45 2RF potassium chloride 20 mEq tablet extended release 20 meq PO DAILY Qty: 90 2RF methotrexate sodium 2.5 mg tablet See Rx Instructions PO Q7D Qty: 30 3RF Rx Instructions: Take 4 tablets by mouth once weekly on Wednesday. atorvastatin 40 mg tablet See Rx Instructions .ROUTE .COMPLEX Qty: 90 0RF Dose Instruction: TAKE 1 TABLET DAILY Rx Instructions: TAKE 1 TABLET DAILY ascorbic acid (vitamin C) [Vitamin C] 500 mg Tablet 2,000 mg PO DAILY zinc gluconate 50 mg Tablet 50 mg PO DAILY Snackr 3 billion cell Capsule 1 cap PO QAM levothyroxine [Tirosint] 100 mcg capsule 100 mcg PO DAILY omeprazole 40 mg capsule,delayed release(DR/EC) 40 mg PO BID acetaminophen [Tylenol Extra Strength] 500 mg tablet 500 mg PO BID PRN (Reason: fever) gabapentin 100 mg capsule 100 mg PO .LUNCH ondansetron 4 mg tablet,disintegrating 4 mg PO DAILY PRN (Reason: Nausea And Vomiting) cyclosporine 0.05 % dropperette 1 drp ophthalmic (eye) DAILY trospium 20 mg tablet 20 mg PO BID mirabegron [Myrbetriq] 25 mg tablet extended release 24 hr 25 mg PO DAILY gabapentin 300 mg capsule 300 mg PO TID Rx Instructions: am and 2pm loperamide-simethicone 2-125 mg Tablet 1 tab PO DAILY Rx Instructions: do not exceed 4 tabs in 24 hrs cholecalciferol (vitamin D3) [Vitamin D3] 25 mcg (1,000 unit) Capsule 50 mcg PO DAILY naloxone 1 mg/mL Syringe See Rx Instructions .ROUTE .COMPLEX PRN (Reason: overdose) Rx Instructions: 1 mg intramuscularly as needed ;NTExceed 10 mg total dose/episode guaifenesin [Mucinex] 600 mg Tablet Extended Release 12hr 600 mg PO BID docusate sodium [Colace] 100 mg capsule 100 mg PO BID oseltamivir [Tamiflu] 30 mg Capsule 30 mg PO DAILY 3 Days Qty: 3 0RF Discharge Orders: Discharge Order (Routine); Ordered 10/24/24 Ordered By: Nicole Kilpatrick Referrals: Alexa Benavides FNP [Primary Care Provider] - 10/30/24 1:00 pm Hope De La Paz FNP [Nurse Practitioner] - 1 week (We have notified your physician's clinic of the need for a follow-up appointment to be scheduled. If you have not heard from them within the next 2 business days, please call them directly. ) Discharge Diet: Cardiac Discharge Activity: Resume usual activity Patient Instructions: Metoprolol (By mouth) (Lopressor, Toprol XL), Amiodarone (By mouth) (Cordarone, Pacerone), Levofloxacin (By mouth), Anemia (DC), CHF Stoplight, Opioid Safety, Pacemaker Discharge Attestations Time Spent in Discharge Care*: greater than 30 min Quality Metrics Clinical Quality Measures [ No reported AMI, CVA or VTE this stay] Coding Level of Care Code Acute Code for Chg Fwd Diagnoses Primary hypertension I10 Hypertension type: primary hypertension Congestive heart failure, NYHA class 2, unspecified congestive heart failure type I50.9 Congestive heart failure type: unspecified CAD (coronary artery disease) I25.10 Pacemaker Z95.0 PVD (peripheral vascular disease) I73.9 Mixed hyperlipidemia E78.2 Hyperlipidemia type: mixed hyperlipidemia Hypothyroidism E03.9 GERD (gastroesophageal reflux disease) K21.9 Acute anemia D64.9 Rheumatoid arthritis, involving unspecified site, unspecified whether rheumatoid factor present M06.9 Rheumatoid arthritis location: unspecified site Rheumatoid factor presence: unspecified presence
== END 2024-10-24 13:26 | disposition home health service (06) | DRG 195 ==
LOC: ICU 10-23 09:31 → CSU 10-23 14:43
PROVIDERS: Internal Medicine; Admitting Provider Internal Medicine; PCP Registered Nurse; Visit Provider Student in an Organized Health Care Education/Training Program
DX: J18.9 Pneumonia, unspecified organism (principal); I11.0 Hypertensive heart disease with heart failure; I50.9 Heart failure, unspecified; I25.10 Atherosclerotic heart disease of native coronary artery without angina pectoris; I73.9 Peripheral vascular disease, unspecified; E78.2 Mixed hyperlipidemia; E03.9 Hypothyroidism, unspecified; K21.9 Gastro-esophageal reflux disease without esophagitis; D64.9 Anemia, unspecified; M05.9 Rheumatoid arthritis with rheumatoid factor, unspecified; I48.91 Unspecified atrial fibrillation; I27.20 Pulmonary hypertension, unspecified; J11.1 Influenza due to unidentified influenza virus with other respiratory manifestations; Z95.0 Presence of cardiac pacemaker; Z95.5 Presence of coronary angioplasty implant and graft; Z95.1 Presence of aortocoronary bypass graft
CPT/HCPCS: 36415; 36416; 71045; 80053; 82962; 83036; 83605; 83735; 84100; 84145; 84443; 84484; 85025; 86140; 87040; 93005; 93306; 94640; 96374; 96376; 97161; 97165; J0360; J0456; J0696; J2405; J2470; J7030; J7050

== ENCOUNTER → 2024-11-09 13:46 | Outpatient (BNVA) | payer MEDICARE, OTHER, SELFPAY | PROVIDERS: PCP Registered Nurse; Visit Provider Nurse Practitioner Family | DX: I25.10 Atherosclerotic heart disease of native coronary artery without angina pectoris (principal); I11.0 Hypertensive heart disease with heart failure; I50.9 Heart failure, unspecified; E78.2 Mixed hyperlipidemia; Z95.0 Presence of cardiac pacemaker | CPT/HCPCS: 99213 ==

== ENCOUNTER 2024-11-24 11:45 | Emergency (ER) | payer MEDICARE, OTHER, SELFPAY ==
[2024-11-24] VITALS (8 sets, daily range): BP systolic 167–195; BP diastolic 96–110; PULSE 65–73; RESP 15–16; TEMP 36.4; O2SAT 93–98; BMI 20.5
--- NOTE | 2024-11-24 12:03 | ECG_ITS ---
[employer] [place] [employer] Test Date: 2024-11-24 Pat Name: Shanna Lang Department: Room: Gender: Female Manager Pe: : 1935 Requested By: Hugo Sanchez Order Number: [id number] Dean MD: Rodney Mendez M.D. Measurements Intervals Stanton Rate: 83 P: 0 WA: 0 QRS: -52 QRSD: 148 T: 131 QT: 452 QTc: 531 Interpretive Statements ELECTRONIC VENTRICULAR PACEMAKER Compared to ECG 10/21/2024 15:16:30 Sinus rhythm no longer present T-wave abnormality no longer present Electronically Signed On 11-25-2024 07:41:34 CDT by Rodney Mendez M.D. [email or web address]
--- NOTE | 2024-11-24 13:18 | XR_ITS ---
WS: [id number] Portable AP upright chest, 11/24/2024 Clinical Data: chest pain Comparison: Portable chest, 10/21/2024 Findings: The patchy opacity in the retrocardiac region has not changed significantly. This may represent atelectasis, pneumonia and/or effusion. There is minimal patchy opacity overlying the right diaphragm. The heart size has not changed. No pneumothorax is present. There are midline sternotomy sutures. The aortic arch and descending thoracic aorta show calcification and tortuosity. There is a single lead cardiac pacemaker with the generator in the left axilla. There is a dextroscoliosis of the thoracic and lumbar spine. XR/XR chest 1V portable [id number] Impression: 1. No change in retrocardiac opacity. 2. Atherosclerosis.
--- NOTE | 2024-11-24 14:44 | PC.PHAR ---
Addendum entered by Yue Márquez 11/24/24 15:19: [facility] is faxing current med list to verify that it matches the recent med list on medical chart. Addendum entered by Yue Márquez 11/24/24 14:53: [facility] [phone] in [place] associated with [facility] Original Note: Pt is currently in rehab at [facility] in [place]
--- NOTE | 2024-11-24 15:04 | ECG_ITS ---
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 Measurements Intervals Alexander Rate: 72 P: 247 HI: 233 QRS: 2 QRSD: 90 T: -77 QT: 421 QTc: 463 Interpretive Statements ELECTRONIC VENTRICULAR PACEMAKER -- CONTOUR ANALYSIS BASED ON INTRINSIC RHYTHM ST DEVIATION AND MODERATE T-WAVE ABNORMALITY, CONSIDER ANTEROLATERAL ISCHEMIA [-0.1+ mV T-WAVE IN V3-V6] ST DEVIATION AND MODERATE T-WAVE ABNORMALITY, CONSIDER INFERIOR ISCHEMIA [-0.1+ mV T-WAVE IN II/aVF] Compared to ECG 11/24/2024 11:56:28 T-wave abnormality now present Possible ischemia now present Electronically Signed On 11-25-2024 07:39:59 CDT by Rodney Mendez M.D. [email or web address]
[2024-11-24 16:08] LABS: Basophils % 0.5 %; Eosinophils % 0.5 %; Hematocrit 33.3 % (36-47); Lymphocytes # 0.9 10^3/uL (0.8-4.8); Lymphocytes % 16.5 %; Mean Corpuscular HGB Conc 30.6 g/dL (30-55); Mean Corpuscular Hemoglobin 30.5 pg (27-33); Mean Corpuscular Volume 99.7 fl (85-98); Mean Platelet Volume 10.9 fL (7.4-10.4); Monocytes # 0.5 10^3/uL (0.2-0.9); Monocytes % 9.8 %; Neutrophils # 3.98 10^3/uL (1.8-7.7); Neutrophils % 72.3 %; Nucleated Red Blood Cells % 0 %; Platelet Count 172 10^3/cmm (157-399); Red Blood Count 3.34 10^6/uL (3.85-5.65); White Blood Count 5.51 10^3/uL (3.29-11.43)
[2024-11-24 16:21] LABS: D Dimer 1.54 ug/mLFEU (0-0.59)
[2024-11-24 16:28] LABS: Troponin(5th) Baseline 30 ng/L (0-10)
--- NOTE | 2024-11-24 16:29 | W.ED.GENADLT ---
HPI - General Adult General: Chief complaint: General Medical Stated complaint: [facility] sent over for poss blood clot Time Seen by Provider: 11/24/24 14:02 History of Present Illness: Shanna Lang is a 89 year old female With past medical history of atrial fibrillation, hypertension, peripheral arterial disease, congestive heart failure, hypothyroidism, CABG, PCI, dyslipidemia, rheumatoid arthritis, subclavian artery stenosis, UTI, pacemaker placement in November 2023 who presents along with a friend by private vehicle. Friend gives most of the history. Friend states that she is on levofloxacin for the pneumonia and for a UTI. Friend states that her lower extremities have been edematous, primarily around the feet. They report that they contacted a provider. The provider reportedly told them that they need to go to the emergency department to have a VQ scan . The patient reports no pain with deep breathing, no chest discomfort, no hemoptysis. She has no history of DVT or PE. She is not anticoagulated because she has a fall risk. She is 95% on room air on arrival. She does have a slight asymmetry in the right lower extremity compared to the left lower extremity in regards to edema but it is subtle. She has 1+ pitting edema in her ankles. Echocardiogram in October 2024 showed some diastolic heart failure, pulmonary hypertension. Patient is on Lasix once daily for the last 3 days for her edema in the ankles. Patient's friend says since she has been hospitalized with pneumonia and influenza 2 weeks ago and now with possible UTI, she has been weaker than usual, dyspnea on exertion, and slightly more forgetful than typical. Associated symptoms: Deny chest pain, headache(s), nausea, rash, syncope or vomiting Related Data Home Medications ?Medication ?Instructions ?Recorded ?Confirmed Lactobacillus rhamnosus-Bifidobac. 1 cap PO QAM 10/24/23 11/24/24 animalis 3 billion cell capsule (PerformLine) ascorbic acid (vitamin C) 500 mg 2,000 mg PO DAILY 10/24/23 11/24/24 tablet (Vitamin C) zinc gluconate 50 mg tablet 50 mg PO DAILY 10/24/23 11/24/24 levothyroxine 100 mcg capsule 100 mcg PO DAILY 11/24/23 11/24/24 (Tirosint) acetaminophen 500 mg tablet 500 mg PO BID PRN pain/fever 10/21/24 11/24/24 (Tylenol Extra Strength) cholecalciferol (vitamin D3) 25 50 mcg PO DAILY 10/21/24 11/24/24 mcg (1,000 unit) capsule (Vitamin D3) cyclosporine 0.05 % eye drops in a 1 drp ophthalmic (eye) DAILY 10/21/24 11/24/24 dropperette docusate sodium 100 mg capsule 100 mg PO BID constipation 10/21/24 11/24/24 (Colace) gabapentin 300 mg capsule 300 mg PO TID 10/21/24 11/24/24 guaifenesin 600 mg tablet, 600 mg PO BID 10/21/24 11/24/24 extended release 12 hr (Mucinex) loperamide 2 mg-simethicone 125 mg 1 tab PO DAILY 10/21/24 11/24/24 tablet mirabegron 25 mg tablet,extended 25 mg PO DAILY 10/21/24 11/24/24 release 24 hr (Myrbetriq) naloxone 1 mg/mL injection syringe See Rx Instructions .Route 10/21/24 11/24/24 .COMPLEX PRN overdose omeprazole 40 mg capsule,delayed 40 mg PO BID 10/21/24 11/24/24 release ondansetron 4 mg disintegrating 4 mg PO DAILY PRN Nausea And 10/21/24 11/24/24 tablet Vomiting trospium 20 mg tablet 20 mg PO BID 10/21/24 11/24/24 atorvastatin 40 mg tablet 40 mg PO QPM 11/24/24 11/24/24 estradiol 0.01% (0.1 mg/gram) See Rx Instructions .Route .COMPLEX 11/24/24 11/24/24 vaginal cream furosemide 20 mg tablet 20 mg PO DAILY 11/24/24 11/24/24 levofloxacin 500 mg tablet 500 mg PO DAILY 11/24/24 11/24/24 turmeric root extract 500 mg tablet 1,000 mg PO DAILY 11/24/24 11/24/24 Previous Rx's ?Medication ?Instructions ?Recorded Back brace #1 ea 11/20/21 doughnut cushion #1 ea 04/07/22 accommodative orthotic #1 ea 04/15/22 calcium carbonate (Tums) 200 mg PO BID PRN dyspepsia 30 08/19/23 days #60 tabs nitroglycerin 400 mcg/spray 1 spray translingual Q5M PRN chest 09/10/23 translingual pain #4.9 grams Shower Chair #1 ea 02/06/24 Incontince Briefs XL #99 ea 03/28/24 tramadol 50 mg tablet 50 mg PO BID PRN pain 30 days #45 04/14/24 tabs potassium chloride 20 mEq 20 meq PO DAILY #90 tabs 05/09/24 tablet,extended release methotrexate sodium 2.5 mg tablet See Rx Instructions PO Q7D #30 tabs 08/23/24 folic acid 1 mg tablet 1 mg PO DAILY #30 tabs 10/30/24 amiodarone 200 mg tablet (Pacerone) 200 mg PO QDAY #60 tabs 11/10/24 metoprolol succinate 25 mg 25 mg PO DAILY #180 tabs 11/10/24 tablet,extended release 24 hr Allergies Allergy/AdvReac Type Severity Reaction Status Date / Time lactose Allergy Unknown Verified 11/09/24 13:56 Sulfa (Sulfonamide Allergy ADR-Vomitin Verified 11/09/24 13:56 Antibiotics) g Review of Systems General: Reports: 10 or more systems reviewed and unremarkable except in HPI and below Const: Denies: fever(s), chills or body aches Eyes: Denies: change in vision ENMT: Denies: throat pain Card: Denies: chest pain or syncope Resp: Denies: productive cough GI: Denies: abdominal pain, nausea, vomiting or diarrhea : Denies: flank pain Musc: Denies: neck pain, back pain or extremity pain Skin/Breast: Denies: rash or erythema Neuro: Denies: headache(s), numbness in extremities or lack of coordination PFSH ED PFSH: Medical History Pacemaker Seropositive rheumatoid arthritis of multiple sites Immunization counseling High risk medication use Anal sphincter incompetence History of nonmelanoma skin cancer History of melanoma Scoliosis CAD (coronary artery disease) Rheumatoid arthritis Reported hx by pt Scoliosis (and kyphoscoliosis), idiopathic Anxiety and depression Afib Menopause Hypothyroidism Angina pectoris GERD (gastroesophageal reflux disease) Recurrent urinary tract infection Hyperlipidemia Hypertension Surgical History History of hand surgery History of open heart surgery 2000 History of hysterectomy History of intestinal surgery History of tonsillectomy Hx of foot surgery right foot Family History Mother Diabetes Other Parkinson disease Social History Smoking and tobacco/nicotine status: never used tobacco/nicotine Alcohol intake: never Substance/Drug Use: never Adopted: No Caregiver/support person: No Lives independently: No Household members: family service: No Sexually active: No Do you think of yourself as: Straight/Heterosexual Current gender identity: Female Physical Exam Narrative: EXAM NARRATIVE: Alert, poor short-term memory, looks to her friend to recall a lot of details. Interactive and conversational. Mild lower extremity edema noted in the ankles around the malleoli with palpation. Very subtle asymmetry in the right calf versus the left calf. No erythema or warmth. Respiratory rate is normal. Work of breathing is normal. There are crackles in the bases of the lungs bilaterally. No JVD in an upright position. The patient is hypertensive. Abdomen soft and nontender. Radial pulse easily palpable. Heart rate is within normal limits. Const: COMMON NORMALS: no limitations, alert and well nourished HENMT: COMMON NORMALS: normocephalic, atraumatic and external ears normal HEAD & SCALP: normocephalic and atraumatic EXTERNAL EAR: Yes external ears normal MOUTH: no muffled voice Eye: COMMON NORMALS: EOMs intact bilaterally, conjunctivae normal and no scleral icterus CONJUNCTIVA: Yes conjunctivae normal Neck/C-Spine: GENERAL: Yes normal visual inspection and Yes trachea midline Resp: COMMON NORMALS: normal respiratory effort and No use of accessory muscles; negative for clear to auscultation bilaterally AUSCULTATION: not clear to auscultation bilaterally and rales Cardio: COMMON NORMALS: regular rate and regular rhythm RATE: regular rate RHYTHM: regular rhythm GI: COMMON NORMALS: Soft to palpation and non-tender PALPATION: Yes Soft to palpation and No Guarding due to palpation present (GI) Neuro: COMMON NORMALS: moves all extremities, no focal motor deficits and no sensory deficits noted SENSORIUM/ORIENTATION: Yes alert SPEECH: speech normal Psych: COMMON NORMALS: mental status grossly normal, Normal thought process present, cooperative, normal affect and speech normal SPEECH: Yes normal speech THOUGHT PROCESS: Normal thought process present Skin: COMMON NORMALS: no rashes or lesions noted, turgor normal and no jaundice GENERAL SKIN EXAM: no rashes or lesions noted and turgor normal Course Vital Signs: Vital signs: Vital Signs Temperature 97.5 F L 11/24/24 11:50 Pulse Rate 73 11/24/24 20:45 Respiratory Rate 16 11/24/24 20:45 Blood Pressure 167/103 11/24/24 20:45 Pulse Oximetry 98 11/24/24 20:45 Oxygen Delivery Me thod Room Air 11/24/24 11:50 MDM - General Adult Medical Decision Making Patient's lower extremity edema is mild. I suspect this is more congestive heart failure given the fact that she has moderate valvular disease and diastolic dysfunction with pulmonary hypertension rather than pulmonary embolism or DVT. Unfortunately, because she was sent over specifically to rule out thromboembolic disease, there was a pre-existing expectation that we do a workup. I feel that pulmonary embolism is quite unlikely but since she has been hospitalized recently and has a small discrepancy in the right calf versus the left calf with minor lower extremity edema we will proceed with workup. The patient's D-dimer was mildly elevated. After 8 attempts at an IV which continued to blow shortly after placement. (patient says they did 9 attemps when she was admitted last) patient declined further IV attempts. Since the likelihood of pulmonary embolism is low based on her pretest and clinical assessment, we decided to not do any further IV attempts as she did not want to be stuck anymore. We did do bilateral lower extremity ultrasounds. I discussed with the control technician and she reports these were negative for DVT. Therefore I feel that we have adequately evaluated her for thromboembolic disease when in fact the diagnosis is much more likely to be a combination of diastolic heart failure and third spacing due to having her legs in a dependent position. Patient's hemoglobin remains slightly low at 10.2. MCV is noted to be elevated. Creatinine 1.4. This appears to be in keeping with her priors. BNP was elevated at 18,000 confirming what we suspected as congestive heart failure. The troponin is 30. We do not think this is acute coronary syndrome. I have been waiting for a urine analysis. Straight cath was ordered but has not yet been collected at this point. The patient wanted to know whether she needed to take antibiotics anymore. She was given 3 days of Levaquin and today was her last day. A chest x-ray was performed. There appears to be unchanged infiltrate primarily in the pericardiac and lower lungs. This is probably the pulmonary edema and rales have been hearing. Patient is afebrile, not coughing up purulent sputum, no chills, no fever, no white count. I will give 20 mg of Lasix IV as an additional bolus to help remove pulmonary edema and peripheral edema. We will have to carefully watch her kidney function. EKG was obtained at 1156. EP interpretation. Ventricular pacing. Rate 83. Left axis deviation. LVH pattern. In the setting of being ventricularly paced, there is no concerning discordant ST changes Lab Data 11/24/24 15:58 11/24/24 15:58 Radiology Impressions Chest X-Ray 11/24/24 13:18 Impression: 1. No change in retrocardiac opacity. 2. Atherosclerosis. Venous Duplex 11/24/24 16:38 IMPRESSION: Negative for deep venous thrombosis within bilateral lower extremities. Laboratory Results WBC 5.51 10^3/uL (3.29-11.43) 11/24/24 15:58 RBC 3.34 10^6/uL (3.85-5.65) L 11/24/24 15:58 Hgb 10.20 g/dL (11.27-16.99) L 11/24/24 15:58 Hct 33.3 % (36-47) L 11/24/24 15:58 MCV 99.7 fl (85-98) H 11/24/24 15:58 MCH 30.5 pg (27-33) 11/24/24 15:58 MCHC 30.6 g/dL (30-55) 11/24/24 15:58 RDW 18.0 % (12.1-15.1) H 11/24/24 15:58 Plt Count 172 10^3/cmm (157-399) 11/24/24 15:58 MPV 10.9 fL (7.4-10.4) H 11/24/24 15:58 Neut % (Auto) 72.3 % 11/24/24 15:58 Lymph % (Auto) 16.5 % 11/24/24 15:58 Burnett % (Auto) 9.8 % 11/24/24 15:58 Eos % (Auto) 0.5 % 11/24/24 15:58 Baso % (Auto) 0.5 % 11/24/24 15:58 Neut # (Auto) 3.98 10^3/uL (1.8-7.7) 11/24/24 15:58 Lymph # (Auto) 0.9 10^3/uL (0.8-4.8) 11/24/24 15:58 Burnett # (Auto) 0.5 10^3/uL (0.2-0.9) 11/24/24 15:58 Eos # (Auto) 0.0 10^3/uL (0.0-0.8) 11/24/24 15:58 Baso # (Auto) 0.0 10^3/uL (0.0-0.1) 11/24/24 15:58 Nucleated RBC % (auto) 0 % 11/24/24 15:58 Nucleated RBCs # 0.0 /100WBC 11/24/24 15:58 D-Dimer 1.54 ug/mLFEU (0-0.59) H 11/24/24 15:58 Sodium 139 mmol/L (136-145) 11/24/24 15:58 Potassium 4.6 mmol/L (3.5-5.1) 11/24/24 15:58 Chloride 102 mmol/L (98-107) 11/24/24 15:58 Carbon Dioxide 24 mmol/L (22-29) 11/24/24 15:58 Anion Gap 17.6 (5-19) 11/24/24 15:58 BUN 16 mg/dL (8-23) 11/24/24 15:58 Creatinine 1.4 mg/dL (0.5-0.9) H 11/24/24 15:58 GFR Calculation Not Reportable 11/24/24 15:58 Glucose 93 mg/dL (65-115) 11/24/24 15:58 Calculated Osmolality 289 mOsm/kg (285-295) 11/24/24 15:58 Calcium 8.8 mg/dL (8.5-10.5) 11/24/24 15:58 Total Bilirubin 0.6 mg/dL (0.15-1.2) 11/24/24 15:58 AST 20 U/L (0-32) 11/24/24 15:58 ALT 19 U/L (0-33) 11/24/24 15:58 Alkaline Phosphatase 220 U/L (35-105) H 11/24/24 15:58 Troponin T Baseline 30 ng/L (0-10) H 11/24/24 15:58 NT-Pro-B Natriuret Pep 29220 pg/mL (0-450) H 11/24/24 15:58 Total Protein 6.9 g/dL (6.6-8.7) 11/24/24 15:58 Albumin 4.1 g/dL (3.5-5.2) 11/24/24 15:58 Globulin 2.8 g/dL (1.3-4.6) 11/24/24 15:58 Urine Color Yellow (Yellow) 11/24/24 18:50 Urine Appearance Clear (CLEAR) 11/24/24 18:50 Urine pH 5.0 (5-7) 11/24/24 18:50 Ur Specific [place] 1.012 (1.005-1.030) 11/24/24 18:50 Urine Protein Trace (Negative) A 11/24/24 18:50 Urine Glucose (UA) Negative (Normal) 11/24/24 18:50 Urine Ketones Negative (Negative) 11/24/24 18:50 Urine Blood Negative (Negative) 11/24/24 18:50 Urine Nitrate Negative (Negative) 11/24/24 18:50 Urine Bilirubin Negative (Negative) 11/24/24 18:50 Urine Urobilinogen 0.2 mg/dL (Negative) 11/24/24 18:50 Ur Leukocyte Esterase 1+ (Negative) A 11/24/24 18:50 Urine RBC 0-2 /hpf (0-2) 11/24/24 18:50 Urine WBC 51-100 /hpf (0-5) H 11/24/24 18:50 Ur Squamous Epith Cells 0-5 /hpf (0-5) 11/24/24 18:50 Amorphous Sediment Not Reportable 11/24/24 18:50 Urine Bacteria None seen /hpf (NONE) 11/24/24 18:50 Hyaline Casts 4.11 /lpf 11/24/24 18:50 All radiology interpretation(s) finalized by discharge Discharge Plan Discharge Patient Disposition: Home Clinical Impression: Diastolic CHF, Pedal edema, Sterile pyuria, Accelerated hypertension with diastolic congestive heart failure, NYHA class 3 Condition: Stable Prescriptions: No Action (DME) Back brace See Rx Instructions .Route .MEDSUPPLY Qty: 1 0RF Rx Instructions: Fit patient for brace (DME) doughnut cushion See Rx Instructions .Route .MEDSUPPLY Qty: 1 0RF Rx Instructions: As directed (DME) Shower Chair See Rx Instructions .Route .MEDSUPPLY Qty: 1 0RF Rx Instructions: As directed ([facility]) accommodative orthotic See Rx Instructions .Route .MEDSUPPLY Qty: 1 0RF Rx Instructions: As directed by HIEU&O ([facility]) Incontince Briefs XL See Rx Instructions .Route .MEDSUPPLY Qty: 99 12RF Rx Instructions: As directed amiodarone [Pacerone] 200 mg tablet 200 mg PO QDAY Qty: 60 1RF calcium carbonate [Tums] 200 mg calcium (500 mg) tablet,chewable 200 mg PO BID PRN (Reason: dyspepsia) 30 Days Qty: 60 2RF nitroglycerin 400 mcg/spray spray,non-aerosol 1 spray translingual Q5M PRN (Reason: chest pain) Qty: 4.9 3RF Rx Instructions: do not exceed 3 doses per episode tramadol 50 mg tablet 50 mg PO BID PRN (Reason: pain) 30 Days Qty: 45 2RF potassium chloride 20 mEq tablet extended release 20 meq PO DAILY Qty: 90 2RF methotrexate sodium 2.5 mg tablet See Rx Instructions PO Q7D Qty: 30 3RF Rx Instructions: Take 4 tablets by mouth once weekly on Wednesday. folic acid 1 mg tablet 1 mg PO DAILY Qty: 30 3RF metoprolol succinate 25 mg tablet extended release 24 hr 25 mg PO DAILY Qty: 180 3RF ascorbic acid (vitamin C) [Vitamin C] 500 mg Tablet 2,000 mg PO DAILY zinc gluconate 50 mg Tablet 50 mg PO DAILY PerformLine 3 billion cell Capsule 1 cap PO QAM levothyroxine [Tirosint] 100 mcg capsule 100 mcg PO DAILY omeprazole 40 mg capsule,delayed release(DR/EC) 40 mg PO BID acetaminophen [Tylenol Extra Strength] 500 mg tablet 500 mg PO BID PRN (Reason: pain/fever) ondansetron 4 mg tablet,disintegrating 4 mg PO DAILY PRN (Reason: Nausea And Vomiting) cyclosporine 0.05 % dropperette 1 drp ophthalmic (eye) DAILY trospium 20 mg tablet 20 mg PO BID mirabegron [Myrbetriq] 25 mg tablet extended release 24 hr 25 mg PO DAILY gabapentin 300 mg capsule 300 mg PO TID loperamide-simethicone 2-125 mg Tablet 1 tab PO DAILY Rx Instructions: do not exceed 4 tabs in 24 hrs cholecalciferol (vitamin D3) [Vitamin D3] 25 mcg (1,000 unit) Capsule 50 mcg PO DAILY naloxone 1 mg/mL Syringe See Rx Instructions .ROUTE .COMPLEX PRN (Reason: overdose) Rx Instructions: 1 mg intramuscularly as needed ;NTExceed 10 mg total dose/episode guaifenesin [Mucinex] 600 mg Tablet Extended Release 12hr 600 mg PO BID docusate sodium [Colace] 100 mg capsule 100 mg PO BID atorvastatin 40 mg tablet 40 mg PO QPM furosemide 20 mg tablet 20 mg PO DAILY levofloxacin 500 mg tablet 500 mg PO DAILY estradiol 0.01 % (0.1 mg/gram) cream See Rx Instructions .ROUTE .COMPLEX Rx Instructions: 1 g vaginally in the evening every Wednesday. turmeric root extract 500 mg Tablet 1,000 mg PO DAILY Discharge Orders: Discharge ED (Routine); Ordered 11/24/24 Ordered By: Scott Quiñones Referrals: Alexa Benavides FNP [Primary Care Provider] - 11/29/24 (chf w/ pulm edema, sterile pyuria (no uti on UA), no DVT on US LEs) Patient Instructions: Heart Failure (ED), Pulmonary Edema (ED), Leg Edema (ED), Left-sided and Right-sided Heart Failure (ED) Activity Restrictions/Additional Instructions: 1. You have congestive heart failure. This can indicate that you have either a problem with filling or with pumping blood in your case you have a problem filling with blood. This can lead to backup of fluid into the lungs and legs. This can cause shortness of breath with exertion or with laying flat. It can cause cough and wheezing at times. It can cause crackles in the lungs. Please continue to take your diuretic as prescribed. Towards the end of next week between Wednesday and Wednesday you should have your kidney function rechecked. Try to avoid excess salt. Try to do as much activity as possible. Use compression stockings and elevate your legs. 2. You did not have a urinary tract infection. There was no bacteria in the urine. You have a few white blood cells in your urine which may indicate inflammation of the bladder rather than infection. 3. Your blood pressure was elevated. You are given an extra dose of diuretic and blood pressure medicine in the emergency department. Please continue to check your blood pressure. If it is significantly elevated despite taking your blood pressure medicine (metoprolol, furosemide, amiodarone) then please call your doctor. Blood pressure is often elevated along with congestive heart failure. Return to the emergency department if you have worsening symptoms such as lethargy, low oxygen, severely elevated blood pressure, confusion, extreme weakness and they are unable to take care of yourself, chest pain, or other emergency symptoms. Print Language: Vincentian Coding Level of Care Code ED Store Group Manager for Clair Agustin
[2024-11-24 16:34] LABS: Alanine Aminotransferase 19 U/L (0-33); Albumin Level 4.1 g/dL (3.5-5.2); Alkaline Phosphatase 220 U/L (35-105); Blood Urea Nitrogen 16 mg/dL (8-23); Calcium 8.8 mg/dL (8.5-10.5); Carbon Dioxide 24 mmol/L (22-29); Chloride 102 mmol/L (98-107); Globulin 2.8 g/dL (1.3-4.6); Glucose 93 mg/dL (65-115); NT Pro B Type Natriuretic Pept 17999 pg/mL (0-450); Osmolality Calculated 289 mOsm/kg (285-295); Sodium 139 mmol/L (136-145); Total Bilirubin 0.6 mg/dL (0.15-1.2); Total Protein 6.9 g/dL (6.6-8.7)
[2024-11-24 16:38] LABS: Anion Gap 17.6 (5-19); Aspartate Amino Transferase 20 U/L (0-32); Potassium 4.6 mmol/L (3.5-5.1)
--- NOTE | 2024-11-24 16:38 | USR_ITS ---
PROCEDURE INFORMATION: Exam: US Duplex Lower Extremity Veins, Bilateral Exam date and time: 11/24/2024 5:13 PM Age: 89 years old Clinical indication: Edema, localized; Lower extremity, bilateral; Additional info: Le swelling, dyspnea; R/O pe TECHNIQUE: Imaging protocol: Real-time duplex ultrasound of the bilateral extremities with 2-D muller scale, color Doppler flow and spectral waveform analysis including responses to compression and other maneuvers (when performed) with image documentation. Complete exam focused on the lower extremity veins. COMPARISON: US renal BI* [id number] 11/24/2023 9:28 PM FINDINGS: Right deep veins: Unremarkable. The common femoral, femoral, proximal profunda femoral and popliteal veins are patent without thrombus. Normal Doppler waveforms. Normal compressibility and/or augmentation response. Left deep veins: Unremarkable. The common femoral, femoral, proximal profunda femoral and popliteal veins are patent without thrombus. Normal Doppler waveforms. Normal compressibility and/or augmentation response. Superficial veins: Greater saphenous veins at the saphenofemoral junctions are patent bilaterally without thrombus. Soft tissues: Unremarkable. US/[place] [id number] IMPRESSION: Negative for deep venous thrombosis within bilateral lower extremities.
[2024-11-24] MEDS: methylPREDNISolone sod succ 40 mg/mL INJ 60 MG IVP (17:28)
[2024-11-24] MEDS: acetaminophen 325 mg Tablet 650 MG PO (17:36)
[2024-11-24 19:09] LABS: Bilirubin Urine Negative (Negative); Blood Urine Negative (Negative); Glucose Urine UA Negative (Normal); Ketones Urine Negative (Negative); Leukocyte Esterase Urine 1+ (Negative); Nitrate Urine Negative (Negative); Protein Urine Trace (Negative); Specific Gravity, Urine 1.012 (1.005-1.030); Urine Appearance Clear (CLEAR); Urine Color Yellow (Yellow); Urobilinogen Urine 0.2 mg/dL (Negative)
[2024-11-24 19:12] LABS: Add Urine Microscopic? YES; Bacteria Urine None Seen /hpf; Hyaline Casts Urine 4.11 /lpf; RBC Urine 0-2 /hpf (0-2); Squamous Epithelial Cell Urine 0-5 /hpf (0-5); Universal Test for UA Present (0); WBC Urine 51-100 /hpf (0-5)
--- NOTE | 2024-11-24 19:16 | ECG_ITS ---
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 Measurements Intervals [place] Rate: 67 P: 0 WI: 0 QRS: 23 QRSD: 93 T: -77 QT: 441 QTc: 467 Interpretive Statements ELECTRONIC VENTRICULAR PACEMAKER -- CONTOUR ANALYSIS BASED ON INTRINSIC RHYTHM ST DEVIATION AND MODERATE T-WAVE ABNORMALITY, CONSIDER ANTEROLATERAL ISCHEMIA [-0.1+ mV T-WAVE IN V3-V6] ST DEVIATION AND MODERATE T-WAVE ABNORMALITY, CONSIDER INFERIOR ISCHEMIA [-0.1+ mV T-WAVE IN II/aVF] Compared to ECG 11/24/2024 15:04:48 No significant changes Electronically Signed On 11-25-2024 07:45:06 CDT by Rodney Mendez M.D. [email or web address]
[2024-11-24] MEDS: FUROsemide 20 mg Tablet PO (19:25)
[2024-11-24] MEDS: hyDRALAzine 25 mg Tablet PO (19:25)
[2024-11-24 19:28] LABS: Add Urine Culture? Yes
== END 2024-11-24 20:46 | disposition home or self-care (01) ==
PROVIDERS: Physician Assistant; Emergency Provider Emergency Medicine; PCP Registered Nurse
DX: I11.0 Hypertensive heart disease with heart failure (principal); I50.30 Unspecified diastolic (congestive) heart failure; E78.5 Hyperlipidemia, unspecified; I25.10 Atherosclerotic heart disease of native coronary artery without angina pectoris; R60.9 Edema, unspecified; R82.81 Pyuria; Z85.820 Personal history of malignant melanoma of skin; Z85.828 Personal history of other malignant neoplasm of skin
CPT/HCPCS: 51701; 71045; 80053; 81001; 83880; 84484; 85025; 85378; 87086; 93005; 93970; 96374; 99285; J2919; J9999

== ENCOUNTER → 2024-12-28 12:22 | Outpatient (BNVA) | payer MEDICARE, OTHER, SELFPAY | PROVIDERS: PCP Registered Nurse; Visit Provider Nurse Practitioner Family | DX: I48.11 Longstanding persistent atrial fibrillation (principal); I11.0 Hypertensive heart disease with heart failure; I50.9 Heart failure, unspecified; N28.9 Disorder of kidney and ureter, unspecified; I25.10 Atherosclerotic heart disease of native coronary artery without angina pectoris; K59.00 Constipation, unspecified; R61 Generalized hyperhidrosis; R11.0 Nausea; R53.1 Weakness; Z95.0 Presence of cardiac pacemaker | CPT/HCPCS: 93005; 99214 ==

== ENCOUNTER → 2025-01-10 12:28 | Outpatient (BNVA) | payer MEDICARE, OTHER, SELFPAY | PROVIDERS: PCP Registered Nurse; Visit Provider Internal Medicine Rheumatology | DX: M81.0 Age-related osteoporosis without current pathological fracture (principal); M05.79 Rheumatoid arthritis with rheumatoid factor of multiple sites without organ or systems involvement; Z79.899 Other long term (current) drug therapy; Z71.85 Encounter for immunization safety counseling | CPT/HCPCS: 36415; 80076; 82565; 85025; 85651; 86140; 99214 ==

== ENCOUNTER → 2025-01-18 13:06 | Outpatient (BNVA) | payer MEDICARE, OTHER, SELFPAY | PROVIDERS: PCP Registered Nurse; Visit Provider Dermatology | DX: L82.1 Other seborrheic keratosis (principal); D23.61 Other benign neoplasm of skin of right upper limb, including shoulder; L81.4 Other melanin hyperpigmentation; Z85.828 Personal history of other malignant neoplasm of skin; Z08 Encounter for follow-up examination after completed treatment for malignant neoplasm; Z85.820 Personal history of malignant melanoma of skin; L72.0 Epidermal cyst; L82.0 Inflamed seborrheic keratosis; L53.8 Other specified erythematous conditions; R20.8 Other disturbances of skin sensation; L29.89 Other pruritus; D48.5 Neoplasm of uncertain behavior of skin; L57.0 Actinic keratosis | CPT/HCPCS: 10060; 11102; 17000; 17110; 99213 ==

== ENCOUNTER 2025-02-09 10:30 | Oncology outpatient (recurring) (ONCR) | payer MEDICARE, OTHER, SELFPAY ==
[2025-02-09 10:39] VITALS: BP 150/81; PULSE 84; RESP 16; TEMP 36.6; O2SAT 97
[2025-02-09] MEDS: denosumab 60 mg SDV SUBCUT (11:12)
== END 2025-03-05 23:59 | disposition home or self-care (01) ==
LOC: ONCMED 10:31
PROVIDERS: PCP Registered Nurse; Visit Provider Internal Medicine Rheumatology
DX: M81.0 Age-related osteoporosis without current pathological fracture (principal); Z79.899 Other long term (current) drug therapy
CPT/HCPCS: 96372; J0897

== ENCOUNTER → 2025-03-27 10:46 | Outpatient (BNVA) | payer MEDICARE, OTHER, SELFPAY | PROVIDERS: PCP Family Medicine; Visit Provider Podiatrist Foot & Ankle Surgery | DX: I73.9 Peripheral vascular disease, unspecified (principal); L60.3 Nail dystrophy; L60.8 Other nail disorders; D64.9 Anemia, unspecified | CPT/HCPCS: 11721 ==

== ENCOUNTER → 2025-04-04 10:43 | Outpatient (BNVA) | payer MEDICARE, OTHER, SELFPAY | PROVIDERS: PCP Family Medicine; Visit Provider Internal Medicine Cardiovascular Disease | DX: Z45.018 Encounter for adjustment and management of other part of cardiac pacemaker (principal) | CPT/HCPCS: 93296 ==

== ENCOUNTER → 2025-05-30 12:57 | Outpatient (BNVA) | payer MEDICARE, OTHER, SELFPAY | PROVIDERS: PCP Family Medicine; Visit Provider Internal Medicine Rheumatology | DX: M81.0 Age-related osteoporosis without current pathological fracture (principal); M05.79 Rheumatoid arthritis with rheumatoid factor of multiple sites without organ or systems involvement; Z71.85 Encounter for immunization safety counseling; Z79.899 Other long term (current) drug therapy | CPT/HCPCS: 99214 ==

== ENCOUNTER → 2025-07-09 11:00 | Outpatient (BNVA) | payer MEDICARE, OTHER, SELFPAY | PROVIDERS: PCP Family Medicine; Visit Provider Internal Medicine Cardiovascular Disease | DX: I25.10 Atherosclerotic heart disease of native coronary artery without angina pectoris (principal); I11.0 Hypertensive heart disease with heart failure; I50.9 Heart failure, unspecified; E78.5 Hyperlipidemia, unspecified; Z95.0 Presence of cardiac pacemaker; R06.02 Shortness of breath | CPT/HCPCS: 36415; 80048; 83880; 99214 ==